=== PATIENT | female | born 1950 | race Caucasian/White ===

== ENCOUNTER → 2017-11-20 10:24 | Outpatient (CLI) | payer MEDICARE, OTHER, SELFPAY ==
--- NOTE | 2017-11-20 10:27 | BI_ITS ---
MAMMOGRAPHY - BILATERAL SCREENING 3-D SAM SYNTHESIS REASON FOR EXAM: Female, 67 years old. Bilateral Screening 3-D tomosynthesis PERTINENT HISTORY: No significant family history. TECHNIQUE: 2-D mammograms and 3-D Sam synthesis of the breast (s) were performed. CAD was performed. COMPARISON: None. FINDINGS: The breast composition is composed of scattered fibroglandular density. Scattered benign calcifications are seen. No dense spiculated masses or suspicious microcalcifications are identified. No architectural distortion is identified. There is no skin thickening or retraction. There has been no significant change since the prior study. BI/SCREENING MAMM (CAD), BILAT IMPRESSION: No mammographic signs of malignancy. Routine yearly mammograms recommended. ASSESSMENT CATEGORY: BIRADS Category 1: Negative. A letter regarding these results will be sent to the patient by the facility within 30 days. FOLLOW UP RECOMMENDATION: Yearly follow up mammogram recommended. (A) Approximately 10% of breast cancers are not detected by mammography. A normal mammogram should not delay biopsy of a clinically suspicious abnormality. Electronically Signed: Wayne Herman MD at 12:27 EDT , Service support ,
== END ==
PROVIDERS: Family Provider Student in an Organized Health Care Education/Training Program; PCP Student in an Organized Health Care Education/Training Program; Visit Provider Student in an Organized Health Care Education/Training Program
DX: Z12.31 Encounter for screening mammogram for malignant neoplasm of breast (principal)
CPT/HCPCS: 77063; 77067

== ENCOUNTER 2018-10-01 05:51 | Observation (INO) | payer MEDICARE, OTHER, SELFPAY ==
[2018-09-18 11:12] VITALS: BP 113/89; PULSE 67; RESP 16; TEMP 36.3; O2SAT 93; BMI 35.9
[2018-09-18 11:51] LABS: Absolute Lymphocyte Count 1.66 X10^3/ul (0.83-4.51); Absolute Neutrophil Count 5.7 X10^3/uL (2.0-7.7); Basophil# 0.04 X10^3/uL; Basophil% 0.5 % (0-1); Eosinophil# 0.27 X10^3/uL; Eosinophils% 3.2 % (0-5); Hematocrit 43.5 % (37-47); Hemoglobin 13.9 g/dl (12.0-15.0); Lymphocyte # 1.66 X10^3/ul (4.0); Lymphocyte % 19.6 % (19-41); Mean Corpuscular Hgb 27.7 pg (27.0-32.0); Mean Corpuscular Volume 86.8 fL (81-99); Monocyte# 0.81 X10^3/uL; Monocyte% 9.5 % (0-10); Neutrophil % 67.1 % (47-70); Platelet Count 292 K/mm3 (150-450); RBC Distribution Width CV 13.7 % (11.6-14.6); Red Blood Count 5.01 M/mm3 (4.2-5.4); White Blood Count 8.5 K/mm3 (4.4-11.0)
[2018-09-18 11:53] LABS: POSITIVE COUNT NO; POSITIVE DIFFERENTIAL NO; POSITIVE MORPHOLOGY NO
[2018-09-18 11:58] LABS: Partial Thromboplast Time 26.4 Seconds (24.1-36.2); Prothrombin Time (Protime)PT. 13.3 SECONDS (11.7-14.9)
[2018-09-18 12:23] LABS: AST(SGOT) 19 U/L (15-37); Alanine Aminotransfer ALT/SGPT 30 U/L (13-56); Albumin, Serum 3.5 g/dL (3.2-5.0); Alkaline Phosphatase 51 U/L (45-117); Anion Gap 11 (5-15); BUN 21 mg/dL (7-18); BUN/Creat Ratio 22.6 RATIO (10-20); Bilirubin, Direct 0.19 mg/dL (0.00-0.30); Calcium,Total 8.8 mg/dL (8.5-10.1); Chloride 107 mmol/L (98-107); Creatinine, Serum 0.93 mg/dL (0.55-1.02); EST Glomerular Filtration Rate 64 mL/min (>60); Est Glom Filt Rate - Afr Amer 77 mL/min (>60); Estimated Creatinine Clearance 60.51 ml/min; Globulin 3.4 g/dL (2.2-4.2); Glucose 85 mg/dL (74-106); Potassium 4.4 mmol/L (3.5-5.1); Protein, Total 6.9 g/dL (6.4-8.2); Sodium Level 144 mmol/L (136-145)
--- NOTE | 2018-09-25 12:59 | CASEMGMT ---
Addendum entered by Brianda Harris 09/25/18 13:21: Received return call from patient. Patient plans to return home with assistance from . Patient has 1st outpatient PT visit set up at [facility], has transportation assistance. Patient will be getting a walker, shower seat, and toilet riser from brother who just had a TKR. Patient has a bathroom on the 1st level of the home and is setting up a bedroom area in the dining room. There are 3 steps down to enter the house from the garage or there's 1 step up in the back of the house to enter. Informed patient that RN-CM will follow up for further discharge planning after surgery. Brianda Harris LPN Clinical Support Original Note: Attempted to contact patient regarding discharge needs after upcoming surgery. No answer on cell phone, voicemail left. Brianda Harris LPN Clinical Support
[2018-10-01] VITALS (10 sets, daily range): BP systolic 103–138; BP diastolic 57–90; PULSE 54–68; RESP 12–18; TEMP 36.1–36.9; O2SAT 93–100; BMI 35.9
[2018-10-01] MEDS: oxyCODONE HCl Cr 10 MG Tablet PO (06:32)
[2018-10-01] MEDS: Acetaminophen 500 MG Tablet 1000 MG PO ×3 (06:32→22:47)
--- NOTE | 2018-10-01 07:15 | KNEE_PTH ---
PATIENT: MARY PRICE LOC: MS3 U#:[id number] AGE/SX: 68/F ROOM: MS303 RE10/01/[address]: Dr. Scooter Mata DO : 1950 BED: 1 DIS: 10/02/2018 SPEC #: [id number] RECD: 10/01/18 13:47 STATUS: FRANCES REEmelia #: [id number] QASIM: 10/01/18 07:[address]: Scooter Mata DEPT: SURGICAL PATHOLOGY RECD BY: Blu Arambula ENTERED: 10/01/18 14:09 SP TYPE: TOTAL KNEE OTHR DR: Dr. Pete Morejon DO Tissues: Knee, NOS Procedures: Decalcification bone/plaque Surgery Specimen Level IV HEADER OPERATION: Total knee replacement, right PRE-OP DIAGNOSIS: Tricompartmental osteoarthritis TISSUE SUBMITTED: Bone and soft tissue MICROSCOPIC DIAGNOSIS Bone and soft tissue of right knee, total knee resection: Severe degenerative joint disease. Mild synovial hyperplasia. AM:karen 10/04/18 MICROSCOPIC DESCRIPTION Slides are reviewed. GROSS DESCRIPTION Received is one container designated bone and soft tissue right knee. The specimen consists of multiple fragments of sr-yellow bone measuring in aggregate 17 x 8 x 2 cm. Also in the specimen container are multiple fragments of yellow-white soft tissue measuring in aggregate 13 x 5 x 2 cm. A number of bony fragments contain articular surfaces consistent with tibial plateau and femoral condyle and displaying prominent osteophyte formation, eburnation, and bone erosion. Floor Manager sections are submitted in two cassettes as follows: 1 - soft tissue, 2 - bone after decalcification. / AM:karen 10/01/18 TC:5 [facility]: [id number], [id number]
[2018-10-01] MEDS: Cefazolin 2 GM in 0.9% Normal Saline 100 ML IV (07:33)
[2018-10-01] MEDS: Lactated Ringers 1,000 ML 125 ML IV ×3 (08:00→22:48)
--- NOTE | 2018-10-01 09:29 | PCM.OPRPT ---
Report of Operation Date of Procedure: 10/01/18 Pre-Operative Diagnosis: OA Right knee Post-Operative Diagnosis: same Surgery/Procedure Performed:: Right TKR Description of Surgical Findings:: Primary Surgeon/Physician: Scooter Mata director of collections: DANELLE Matthews director of collections: Pre-Operative Diagnosis: Osteoarthritis right knee Post-Operative Diagnosis: same Surgery/Procedure Performed: Right TKR Estimated Blood Loss: 25cc Specimen's Removed: bone Type of Anesthesia: spinal ASA Class: 2 Implants: [Vandana Triathlon size 5 PS femur, size 5 tibia, 9 mm polyethylene spacer, 32 mm patella (all components cemented) ] Indications: Patient has severe end-stage osteoarthritis diagnosed via x-rays in the knee. They have failed all forms of conservative measures including activity modification, injections, anti-inflammatories, use of assistive device. The patient has pain that affects on a daily basis and prevents him from doing things that they enjoyed. They have elected to undergo the above procedure. The risks of the procedure were discussed at length and their questions were answered. Procedure Description: The patient was greeted in the preoperative area. The [right ] knee was then marked with a surgical marker. Patient was then taken to or Suite 1. They were administered a dose of antibiotics as well as tranexamic acid. Once adequate anesthesia was obtained and airway was secured to placed in supine position on the operating room table. A well-padded tourniquet was placed on the affected extremity. Leg was then prepped and draped in the usual sterile fashion from the knee down. Ioban was used on the skin. Surgical timeout was then performed and confirmed with all present. Six-inch Esmarch was used to examine the limb and tourniquet was then inflated to 250 mmHg. A longitudinal incision was then planned and carried out in the anterior aspect of the knee. The dissection was then carried the length of the incision the extensor mechanism was identified. Standard medial parapatellar arthrotomy was then performed revealing severe eburnation of bone and periarticular osteophytes. There is complete loss of cartilage especially in the medial compartment with varus alignment. Anterior fat pad was removed for visualization purposes and the anterior medial aspect of the tibia was skeletonized for exposure to the knee. The knee was then flexed the patella was inverted. Opening reamer was then used in the femur approximately 1 cm anterior to the attachment of the PCL. The intramedullary valgus wand was then placed in the femur set at 5? of valgus. The distal femoral cutting jig was then applied to the femur with anticipated resection of approximately 8 mm. This was then made with a oscillating saw. The sizing guide was then placed referencing off the posterior condyles and also reference off the epicondylar axis. This was measured and the appropriate size 4-in-1 cutting jig was then applied to the distal femur. Anterior posterior cuts were made followed by the anterior and posterior chamfer cuts. These bony pieces and fragments were removed and placed on the back table. Posterior retractor was then utilized and the tibia was subluxed anteriorly. Intramedullary tibial alignment jig was then applied to the tibia referencing off the medial one third of the tibial tubercle the anterior tibial spine the middle aspect of the tibiotalar joint. Also reference off patient's kiana slope. The tibial cutting jig was then pinned with anticipated resection of 2 mm off of the deficient medial tibial condyle. This cut was made with the oscillating saw. Once this was complete a laminar nutritional chemist was utilized in both medial lateral meniscus were removed and a posterior capsular osteophytes were also removed. Posterior capsule release was performed in the posterior capsule as well as the geniculate arteries are treated with the aqua Royal. The tibia was incised and the appropriate sized tibial tray was then pinned. The femoral box cutting jig was then applied to the femur and the box was prepared removing a portion of the intercondylar notch. The femoral trial was then placed and the knee was trialed. Full flexion-extension were easily achieved. The knee seemed to balance quite nicely. Any remaining osteophytes were removed at this time. Once this was complete the patella was everted and the Walker patella reaming device was then utilized the patella was then placed in the appropriate jig and reamer was then used to remove approximately 9 mm of the undersurface of the patella. A soft tissue remaining was in the way was removed and patella trial was then placed listed maintain excellent tracking using the no thumbs technique. The tibial tray at this point was punched to accommodate the fins of the final implant. At this point cement was mixed on the back table. The trial components were removed and the knee was copiously irrigated. Did use a cocktail of injection for postoperative pain control. The final components were then cemented in the standard fashion and excess cement was removed with cement removal tools and patellar clamp is placed in the patella. As the cement had cured in full extension tourniquet was deflated and hemostasis was perfect with Bovie cautery as well as the aqua Manus. Needle is once again trialed with different size polyethylenes to ensure the full range of motion was achieved as well as excellent balancing ligamentously was achieved. At this point the knee was copiously irrigated. Final implant was then inserted locking mechanism was engaged and confirmed to be locked. The arthrotomy was then closed with #1 Vicryl interrupted suture. Subcutaneous tissue was closed with 0 Vicryl and surgical jack were placed in the skin. A occlusive silver impregnated dressing was then applied followed by well-padded sterile dressing secured with an Maycol wrap. The patient was taken to the PACU in stable condition. No complications known at this time. Postoperatively we will maintain standard total knee postoperative protocol. The use of the REMOTE SENSING ADVISOR was integral during this procedure. They assisted with positioning placement of the tourniquet, retracting, closure and placement of the dressing. The procedure would have been much more difficult without their expertise and assistance director of collections: Bev Greenfield Type of Anesthesia:: Spinal Anesthesiologist: Drew Vega Drains: 0 Estimated Blood Loss (mL): 25cc - Admit VTE Documentation VTE Present on Admission: No VTE Mechan Device Prophylaxis: SCD's, Knee High RED Hose VTE Pharm Prophylaxis ordered?: Yes
--- NOTE | 2018-10-01 09:38 | OP.PCM_ITS ---
Report of Operation Date of Procedure: 10/01/18 Pre-Operative Diagnosis: OA Right knee Post-Operative Diagnosis: same Surgery/Procedure Performed:: Right TKR Description of Surgical Findings:: Primary Surgeon/Physician: Scooter Mata web assistant: DANELLE Matthews web assistant: Pre-Operative Diagnosis: Osteoarthritis right knee Post-Operative Diagnosis: same Surgery/Procedure Performed: Right TKR Estimated Blood Loss: 25cc Specimen's Removed: bone Type of Anesthesia: spinal ASA Class: 2 Implants: [Vandana Triathlon size 5 PS femur, size 5 tibia, 9 mm polyethylene spacer, 32 mm patella (all components cemented) ] Indications: Patient has severe end-stage osteoarthritis diagnosed via x-rays in the knee. They have failed all forms of conservative measures including activity modification, injections, anti-inflammatories, use of assistive device. The patient has pain that affects on a daily basis and prevents him from doing things that they enjoyed. They have elected to undergo the above procedure. The risks of the procedure were discussed at length and their questions were answered. Procedure Description: The patient was greeted in the preoperative area. The [right ] knee was then marked with a surgical marker. Patient was then taken to or Suite 1. They were administered a dose of antibiotics as well as tranexamic acid. Once adequate anesthesia was obtained and airway was secured to placed in supine position on the operating room table. A well-padded tourniquet was placed on the affected extremity. Leg was then prepped and draped in the usual sterile fashion from the knee down. Ioban was used on the skin. Surgical timeout was then performed and confirmed with all present. Six-inch Esmarch was used to examine the limb and tourniquet was then inflated to 250 mmHg. A longitudinal incision was then planned and carried out in the anterior aspect of the knee. The dissection was then carried the length of the incision the extensor mechanism was identified. Standard medial parapatellar arthrotomy was then performed revealing severe eburnation of bone and periarticular osteophytes. There is complete loss of cartilage especially in the medial compartment with varus alignment. Anterior fat pad was removed for visualization purposes and the anterior medial aspect of the tibia was skeletonized for exposure to the knee. The knee was then flexed the patella was inverted. Opening reamer was then used in the femur approximately 1 cm anterior to the attachment of the PCL. The intramedullary valgus wand was then placed in the femur set at 5? of valgus. The distal femoral cutting jig was then applied to the femur with anticipated resection of approximately 8 mm. This was then made with a oscillating saw. The sizing guide was then placed referencing off the posterior condyles and also reference off the epicondylar axis. This was measured and the appropriate size 4-in-1 cutting jig was then applied to the distal femur. Anterior posterior cuts were made followed by the anterior and posterior chamfer cuts. These bony pieces and fragments were removed and placed on the back table. Posterior retractor was then utilized and the tibia was subluxed anteriorly. Intramedullary tibial alignment jig was then applied to the tibia referencing off the medial one third of the tibial tubercle the anterior tibial spine the middle aspect of the tibiotalar joint. Also reference off patient's [place] slope. The tibial cutting jig was then pinned with anticip ated resection of 2 mm off of the deficient medial tibial condyle. This cut was made with the oscillating saw. Once this was complete a laminar hollow core door frame assembler was utilized in both medial lateral meniscus were removed and a posterior capsular osteophytes were also removed. Posterior capsule release was performed in the posterior capsule as well as the geniculate arteries are treated with the aqua Royal. The tibia was incised and the appropriate sized tibial tray was then pinned. The femoral box cutting jig was then applied to the femur and the box was prepared removing a portion of the intercondylar notch. The femoral trial was then placed and the knee was trialed. Full flexion-extension were easily achieved. The knee seemed to balance quite nicely. Any remaining osteophytes were removed at this time. Once this was complete the patella was everted and the Walker patella reaming device was then utilized the patella was then placed in the appropriate jig and reamer was then used to remove approximately 9 mm of the undersurface of the patella. A soft tissue remaining was in the way was removed and patella trial was then placed listed maintain excellent tracking using the no thumbs technique. The tibial tray at this point was punched to accommodate the fins of the final implant. At this point cement was mixed on the back table. The trial components were removed and the knee was copiously irrigated. Did use a cocktail of injection for postoperative pain control. The final components were then cemented in the standard fashion and excess cement was removed with cement removal tools and patellar clamp is placed in the patella. As the cement had cured in full extension tourniquet was deflated and hemostasis was perfect with Bovie cautery as well as the aqua Manus. Needle is once again trialed with different size polyethylenes to ensure the full range of motion was achieved as well as excellent balancing ligamentously was achieved. At this point the knee was copi ously irrigated. Final implant was then inserted locking mechanism was engaged and confirmed to be locked. The arthrotomy was then closed with #1 Vicryl interrupted suture. Subcutaneous tissue was closed with 0 Vicryl and surgical jack were placed in the skin. A occlusive silver impregnated dressing was then applied followed by well-padded sterile dressing secured with an Maycol wrap. The patient was taken to the PACU in stable condition. No complications known at this time. Postoperatively we will maintain standard total knee postoperative protocol. The use of the DIRECTOR OF MARKETING ANALYTICS was integral during this procedure. They assisted with positioning placement of the tourniquet, retracting, closure and placement of the dressing. The procedure would have been much more difficult without their expertise and assistance web assistant: Bev Greenfield Type of Anesthesia:: Spinal Anesthesiologist: Drew Vega Drains: 0 Estimated Blood Loss (mL): 25cc - Admit VTE Documentation VTE Present on Admission: No VTE Mechan Device Prophylaxis: SCD's, Knee High RED Hose VTE Pharm Prophylaxis ordered?: Yes
[2018-10-01] MEDS: oxyCODONE 5 MG Tablet PO ×4 (11:56→22:45)
[2018-10-01] MEDS: Cefazolin 1 GM/50 ML BAG IV ×2 (14:36→22:48)
[2018-10-01 14:41] LABS: Hematocrit 37.3 % (37-47); Hemoglobin 11.9 g/dl (12.0-15.0); Mean Corp Hgb Conc 31.9 g/gl (32-36); Mean Corpuscular Hgb 28.4 pg (27.0-32.0); Mean Platelet Vol. 9.9 fl (6.2-12.0); Platelet Count 226 K/mm3 (150-450); RBC Distribution Width CV 13.9 % (11.6-14.6); RBC Distribution Width SD 45.6 fl (35.1-43.9); Red Blood Count 4.19 M/mm3 (4.2-5.4); Scan Indicated on CBC? Y/N NO; White Blood Count 10.2 K/mm3 (4.4-11.0)
[2018-10-01 14:52] LABS: Anion Gap 6 (5-15); BUN 16 mg/dL (7-18); BUN/Creat Ratio 17.5 RATIO (10-20); Calcium,Total 7.9 mg/dL (8.5-10.1); Chloride 109 mmol/L (98-107); Creatinine, Serum 0.92 mg/dL (0.55-1.02); EST Glomerular Filtration Rate 65 mL/min (>60); Est Glom Filt Rate - Afr Amer 78 mL/min (>60); Estimated Creatinine Clearance 61.16 ml/min; Glucose 102 mg/dL (74-106); Sodium Level 144 mmol/L (136-145)
[2018-10-01] MEDS: 0.9% NaCl Peripheral Flush Adult/Peds IV (17:13)
[2018-10-01] MEDS: Aspirin 325 MG Tablet PO (22:47)
[2018-10-01] MEDS: Senna/Docusate Sodium 1 Tablet 2 TABLET PO (22:47)
[2018-10-02 03:15] VITALS: BP 122/74; PULSE 70; RESP 16; TEMP 37.4; O2SAT 95
[2018-10-02] MEDS: oxyCODONE 5 MG Tablet PO ×2 (06:13→11:02)
[2018-10-02] MEDS: Ketorolac 15 MG/ML Vial IV ×2 (06:13→14:11)
[2018-10-02] MEDS: Acetaminophen 500 MG Tablet 1000 MG PO ×2 (06:18→14:11)
[2018-10-02 07:01] LABS: Hematocrit 36.6 % (37-47); Hemoglobin 11.3 g/dl (12.0-15.0); Mean Corp Hgb Conc 30.9 g/gl (32-36); Mean Corpuscular Hgb 28.1 pg (27.0-32.0); Mean Platelet Vol. 10.9 fl (6.2-12.0); Platelet Count 210 K/mm3 (150-450); Red Blood Count 4.02 M/mm3 (4.2-5.4); White Blood Count 11.3 K/mm3 (4.4-11.0)
[2018-10-02 07:04] LABS: Scan Indicated on CBC? Y/N NO
[2018-10-02 07:15] LABS: Anion Gap 6 (5-15); BUN 14 mg/dL (7-18); BUN/Creat Ratio 15.6 RATIO (10-20); Calcium,Total 8.1 mg/dL (8.5-10.1); Chloride 107 mmol/L (98-107); EST Glomerular Filtration Rate 67 mL/min (>60); Est Glom Filt Rate - Afr Amer 81 mL/min (>60); Estimated Creatinine Clearance 62.52 ml/min; Glucose 106 mg/dL (74-106); Potassium 4.2 mmol/L (3.5-5.1); Sodium Level 141 mmol/L (136-145)
--- NOTE | 2018-10-02 07:52 | PCM.PN.ORT ---
Subjective: Patient states pain is currently 3/10. Had worse pain this morning primarily at upper part of incision and thigh. - Physical Exam General: Alert, Oriented x3, No apparent distress Extremities: No clubbing, No cyanosis, No edema, Capillary Refill Less than 3 Seconds, No Calf Tenderness Skin: Incision - stable Musculoskeletal: Tenderness - At upper thigh. Soft and minimally tender to palpation. Neurological: Neuro grossly intact Vital Signs Temp Pulse Resp BP Pulse Ox 99.4 F H 70 16 122/74 H 95 10/02/18 03:15 10/02/18 03:15 10/02/18 03:15 10/02/18 03:15 10/02/18 03:15 Oxygen Flow Rate (L/min) 2 Oxygen Delivery Method Nasal Cannula Weight: 243 lb 9.773 oz Body Mass Index (BMI) 35.9 Intake and Output for Last 24 Hours 09/30/18 10/01/18 10/02/18 23:59 23:59 23:59 Intake Total 1500 / 1500 1021 / 1021 Output Total 500 / 500 Balance 1500 / 1500 521 / 521 Laboratory Tests Past 24 Hrs 10/01/18 10/01/18 10/02/18 14:15 14:15 05:15 WBC 10.2 11.3 H RBC 4.19 L 4.02 L Hgb 11.9 L 11.3 L Hct 37.3 36.6 L MCV 89.0 91.0 MCH 28.4 28.1 MCHC 31.9 L 30.9 L RDW 13.9 14.0 RDW Differential 45.6 H 46.0 H Plt Count 226 210 MPV 9.9 10.9 Sodium 144 Potassium 4.0 Chloride 109 H Carbon Dioxide 29.0 Anion Gap 6 BUN 16 Creatinine 0.92 Estim Creat Clear Calc 61.16 Est GFR (MDRD) Af Amer 78 Est GFR (MDRD) Non-Af 65 BUN/Creatinine Ratio 17.5 Glucose 102 Calcium 7.9 L 10/02/18 05:15 WBC RBC Hgb Hct MCV MCH MCHC RDW RDW Differential Plt Count MPV Sodium 141 Potassium 4.2 Chloride 107 Carbon Dioxide 28.0 Anion Gap 6 BUN 14 Creatinine 0.90 Estim Creat Clear Calc 62.52 Est GFR (MDRD) Af Amer 81 Est GFR (MDRD) Non-Af 67 BUN/Creatinine Ratio 15.6 Glucose 106 Calcium 8.1 L Medical Necessity - Tobacco Use Smoking Status: Never smoker Tobacco Use: Non-smoker Assessment/Plan S/p R TKR PT x 2 then home this afternoon.
--- NOTE | 2018-10-02 08:01 | DCINST_ITS ---
Discharge Diet: No Restrictions Discharge Activity: May Not Drive May shower in (days): 1 Ice area for (Minutes): 20 Weight Bearing Status: Weight bearing as tolerated Elevate: Operative Extremity Additional Activity Instructions:: Wear elastic stockings for 2 weeks after your surgery. Call your doctor if your incision/area has: Continuous Slow Oozing, Sudden Increased Bleeding, Increased Pain/ Swelling, Increased Redness, Foul Smelling Discharge Call your doctor if you observe: Fever of 101 or Higher, Coldness, Increased Pain - in extremity, Numbness or Tingling, Change in Color, Calf discomfort, Uncontrolled pain Change Dressing in (Days):: 1 - and daily as needed. Cleanse incision/area with: Soap & Water Allergies/Adverse Reactions: Allergies hydrocodone [From Vicodin] Allergy (Verified 09/18/18 10:56) Rash rofecoxib [From Vioxx] Adverse Reaction (Verified 09/18/18 10:56) Upset Stomach Medications to take at Discharge Acetaminophen [Tylenol Extra Strength] 1,000 mg PO BID 09/18/18 Metoprolol Succinate [Toprol Xl] 50 mg PO DAILY 09/18/18 Multivit with Calcium,Iron,Min [Multiple Vitamins For Women] 1 each PO DAILY 09/18/18 Acetaminophen [Tylenol] 1,000 mg PO Q8 tablet 10/02/18 Aspirin 325 mg PO BID tablet 10/02/18 Oxycodone [Oxyir] 5 - 10 mg PO Q4H PRN PRN #60 tab 10/02/18 Senna/Docusate Sodium [Senokot-S] 2 tablet PO BID tablet 10/02/18 The following prescriptions were given: Oxycodone [Oxyir] 5 - 10 mg PO Q4H PRN PRN #60 tab PRN Reason: Mod-Severe Pain (4-10/10) Primary Care Physician: Pete Morejon DO [Primary Care Provider] - Test Results: Test results from this visit will be discussed in further detail at your follow- up appointment, if applicable. Please Follow Up With: Scooter Mata DO When: as scheduled
--- NOTE | 2018-10-02 09:12 | PCA ---
therapy working with pt
--- NOTE | 2018-10-02 10:30 | CASEMGMT ---
ROCKY HERNADEZ Face to Face with patient for initial transition planning/care coordination assessment. RN MARICARMEN introduced self and role at [facility]. Patient lying in bed, alert and oriented. Patient willing to participate in assessment and is able to answer all questions appropriately. Care providers, pharmacy, and demographics verified. Patient wishes to discharge home and is setup with [facility] for outpatient therapy with providing transportation. Patient states she has no further needs or concerns at this time. CM to follow for discharge planning needs that may arise. PCP: Stefan Specialists: Lyndon pain specialist Preferred Pharmacy: [facility] Benef[facility]: Yes Living Will/HPOA: None LNOK: Living Arrangements: Patient lives with in 2 story home with bed and bath setup on first floor. Transportation: DME/HHC: Patient states that she has a shower chair, raised toilet seat, and walker at home. Disposition Plan: Patient to discharge with outpatient therapy, family support, and follow-up plans in place. Ethel DUNN, RN, CM
[2018-10-02] MEDS: Multivitamins,Ther W-Minerals Tablet 1 TABLET PO (10:56)
[2018-10-02 10:57] VITALS: PULSE 81
[2018-10-02] MEDS: Senna/Docusate Sodium 1 Tablet 2 TABLET PO (10:57)
[2018-10-02] MEDS: Metoprolol(XL)Succ 50 MG Tablet PO (10:57)
[2018-10-02] MEDS: Aspirin 325 MG Tablet PO (10:57)
[2018-10-02 11:11] VITALS: BP 115/55; PULSE 70; RESP 18; TEMP 36.5; O2SAT 95
== END 2018-10-02 15:45 | disposition home or self-care (01) ==
PROVIDERS: Anesthesiology; Admitting Provider Orthopaedic Surgery; Family Provider Student in an Organized Health Care Education/Training Program; PCP Student in an Organized Health Care Education/Training Program; Referring Provider Orthopaedic Surgery; Visit Provider Orthopaedic Surgery
PROC: (CPT 27447; principal; 2018-10-01 06:50)
DX: M17.11 Unilateral primary osteoarthritis, right knee (principal); Z79.899 Other long term (current) drug therapy; Z79.82 Long term (current) use of aspirin; I10 Essential (primary) hypertension; G25.81 Restless legs syndrome; R00.1 Bradycardia, unspecified; Z79.1 Long term (current) use of non-steroidal anti-inflammatories (NSAID); M76.51 Patellar tendinitis, right knee
CPT/HCPCS: 27447; 64447; 36415; 80048; 80076; 85025; 85027; 85610; 85730; 87081; 88305; 88311; 93005; 96361; 96365; 96366; 96375; 96376; 97110; 97116; 97161; 97166; 97530; 99218; C1776; J7120; A4216; G0378; G0379; J2405

== ENCOUNTER → 2018-11-20 11:58 | Outpatient (CLI) | payer MEDICARE, OTHER, SELFPAY ==
[2018-10-01 06:17] VITALS: BMI 35.9
--- NOTE | 2018-11-20 | LES_PTH ---
PATIENT: MARY PRICE LOC: [facility] U#:[id number] AGE/SX: 74/F ROOM: RE11/20/[address]: Dr. Erick Gallardo, PARK : 1950 BED: DIS: SPEC #: [id number] RECD: 11/20/18 11:56 STATUS: FRANCES WILMA #: [id number] QASIM: 11/20/18 00:[address]: Erick Gallardo DEPT: SURGICAL PATHOLOGY RECD BY: Deon Noguera ENTERED: 11/20/18 13:28 SP TYPE: Lesion OTHR DR: Dr. Pete Morejon, DO Tissues: Skin of face, NOS Procedures: Surgery Specimen Level IV HEADER OPERATION: Biopsy left cheek PRE-OP DIAGNOSIS: Probable fibroma TISSUE SUBMITTED: Left cheek mucosa MICROSCOPIC DIAGNOSIS Left cheek mucosa, biopsy: Squamous mucosa with subepithelial fibrosis, consistent with irritation fibroma. Hyperkeratosis and parakeratosis. SJ:karen 11/21/18 MICROSCOPIC DESCRIPTION Slides are reviewed. GROSS DESCRIPTION Received in fixative is one container labeled with the patient's name and designated left cheek. The specimen consists of a piece of sr-white mucosal tissue measuring 0.7 x 0.5 x 0.3 cm. The specimen is inked and submitted entirely in one cassette. It will be sectioned at the time of embedding. / BRITTANI:karen 11/20/18 TC:5 CPT: 29015
== END ==
PROVIDERS: Family Provider Student in an Organized Health Care Education/Training Program; PCP Student in an Organized Health Care Education/Training Program; Referring Provider Dentist Oral and Maxillofacial Surgery; Visit Provider Dentist Oral and Maxillofacial Surgery
DX: D10.39 Benign neoplasm of other parts of mouth (principal); L85.9 Epidermal thickening, unspecified
CPT/HCPCS: 88305

== ENCOUNTER 2019-03-27 06:18 | Inpatient (IN) | payer MEDICARE, OTHER, SELFPAY ==
[2018-10-01 06:17] VITALS: BMI 35.9
[2019-03-11 14:16] VITALS: BP 130/89; PULSE 57; RESP 16; TEMP 36.5; O2SAT 96; BMI 37.3
--- NOTE | 2019-03-11 14:26 | SDCEKG_ITS ---
Test Reason : Blood Pressure : / mmHG Vent. Rate : 059 BPM Atrial Rate : 059 BPM P-R Int : 172 ms QRS Dur : 080 ms QT Int : 442 ms P-R-T Axes : 042 -36 027 degrees QTc Int : 437 ms Sinus bradycardia Left axis deviation Possible Anterior infarct (cited on or before 18-SEP-2018), age undetermined Abnormal ECG Confirmed by RACHEL BEARD MD ([id number]), market editor RAUL WOODS ([id number]) on 03/18/2019 11:47:18 AM Referred By: [facility] Confirmed By:RACHEL BEARD MD
[2019-03-11 14:55] LABS: Absolute Lymphocyte Count 1.67 X10^3/uL (0.83-4.51); Absolute Neutrophil Count 4.1 X10^3/uL (2.0-7.7); Basophil# 0.09 X10^3/uL; Basophil% 1.3 % (0-1); Eosinophil# 0.38 X10^3/uL; Eosinophils% 5.4 % (0-5); Hematocrit 41.3 % (37-47); Hemoglobin 13.4 g/dL (12.0-15.0); Lymphocyte # 1.67 X10^3/ul (4.0); Lymphocyte % 23.8 % (19-41); Mean Corp Hgb Conc 32.4 g/dL (32-36); Mean Corpuscular Hgb 28.3 pg (27.0-32.0); Mean Corpuscular Volume 87.1 fL (81-99); Mean Platelet Vol. 10.5 fl (6.2-12.0); Monocyte# 0.77 X10^3/uL; NRBC Flagged by Analyzer 0 % (0-5); Neutrophil % 58.2 % (47-70); Platelet Count 315 K/mm3 (150-450); RBC Distribution Width CV 13.5 % (11.6-14.6); RBC Distribution Width SD 43.6 fl (35.1-43.9); Red Blood Count 4.74 M/mm3 (4.2-5.4)
[2019-03-11 14:58] LABS: Prothrombin Time (Protime)PT. 13.4 SECONDS (11.7-14.9)
[2019-03-11 14:59] LABS: Partial Thromboplast Time 27.5 Seconds (24.1-36.2)
[2019-03-11 15:04] LABS: AST(SGOT) 18 U/L (15-37); Alanine Aminotransfer ALT/SGPT 20 U/L (13-56); Albumin, Serum 3.3 g/dL (3.2-5.0); Alkaline Phosphatase 58 U/L (45-117); Anion Gap 4 (5-15); BUN 17 mg/dL (7-18); BUN/Creat Ratio 17.8 RATIO (10-20); Calcium,Total 8.5 mg/dL (8.5-10.1); Chloride 110 mmol/L (98-107); Creatinine, Serum 0.95 mg/dL (0.55-1.02); EST Glomerular Filtration Rate 62 mL/min (>60); Est Glom Filt Rate - Afr Amer 75 mL/min (>60); Estimated Creatinine Clearance 59.23 ml/min; Globulin 3.6 g/dL (2.2-4.2); Glucose 98 mg/dL (74-106); Potassium 4.2 mmol/L (3.5-5.1); Protein, Total 6.9 g/dL (6.4-8.2); Sodium Level 142 mmol/L (136-145)
--- NOTE | 2019-03-11 22:31 | HP.PCM_ITS ---
History and Physical Patient Name: Pavithra Reyes : 1950 From: ALICIA EDWARDS PA-C DATE OF SURGERY: 03/27/2019 SCHEDULED PROCEDURE: left total hip arthroplasty HISTORY OF PRESENT ILLNESS: Preoperative history and physical exam was performed on March 11, 2019. This is a 68-year-old female who has been having ongoing pain in the left hip for over one year. Patient has increased pain going up and down stairs, walking, and prolonged sitting. She does report startup pain. Her pain has been constant, aching, stabbing, sore. Pain is over the lateral hip. Pain does occasionally wake her at night. Patient has difficult time with activities of daily living including bathing/showering, housework, and shopping. Patient has tried rest, heat, corticosteroid injection with minimal relief. She has been through formal physical therapy and home exercises. She has tried oral medications consisting of Mobic and Tylenol. She denies previous surgeries. She has had injections in the left SI joint as well as an ablation in November 2018. Patient has medical history pertinent for hypertension. She denies any recent chest pain, shortness of breath, fevers chills, recent infections. After failing conservative measures and discussing treatment options with Dr. Rd Mederos patient does wish to proceed with a left total hip arthroplasty. We have obtain surgical clearance from the primary care physician. REVIEW OF SYSTEMS: ROS: Const: Denies anorexia, change in appetite, fever, hard of hearing, vision problems and weight change. CV: Denies chest pain, heart murmur, irregular heartbeat and peripheral vascular disease. Resp: Denies asthma, cough, pneumonia, sleep apnea, SOB, tuberculosis and wheezing. GI: Reports difficulty swallowing, but denies constipation, diarrhea, heartburn, nausea, bloody stools and vomiting. : Genital: reports irregular menstrual periods. Urinary: denies incontinence. Musculo: Reports weakness, but denies leg swelling, limp and trouble walking. Skin: Denies Raynaud's, history of shingles and tattoo. Neuro: Reports difficulty with balance, numbness/tingling and tremor but denies ambulatory dysfunction and dizziness. Psych: Denies anxiety, depression, insomnia, mental illness and stress. Tim/Lymph: Denies anemia, bleeding/bruising tendency and past transfusion. Reviewed, no changes. PAST MEDICAL HISTORY: Advance Care Plan: No Advance Directives Effective Date: 10/27/2016 PMH: Medical Problems: High Blood Pressure Accidents: Fracture - (1970) skull Surgical Hx: Tubal Ligation - (1982) [facility] Eye - (1988) [facility] T[facility]KR - (10/04/2010) [facility] @ [facility] LT Eye SX - (06/2014) RT TKR - (10/01/2018) [email or web address] Si Joint Ablation - (11/2018) Anesthesia Complications: Nausea Assistive Devices: Glasses, Contacts Reviewed and updated. 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 Personal Habits: Cigarette Use: Never.Alcohol: Occasionally.Drug Use: Denies Use.Enjoy Exercising: Never Exercises. Reviewed, no changes. VITALS: Ht: 69 Wt: 249lb Wt [id number] BMI: 36.8 BP: 144/88 Pulse: 60 Resp: 16 T: 97.8 T: 36.6C ALLERGIES: Vicodin Vioxx MEDICATIONS: Metoprolol 50 mg 1po qday, Tylenol 325 mg 2 tabs PO bid, Aspirin 81 mg 1 by mouth twice a day, Mobic 7.5 mg 1 by mouth twice a day as needed PRE-OP EXAM: General appearance:NORMAL Other: Eyes: Conjunctivae and lids: NORMAL Pupils: ERR Ears, Nose, Mouth, and Throat: NORMAL Other: Inspection of lips, teeth and gums: NORMAL Other: Neck: Examination of neck: no masses noted. Respiratory: Assessment of respiratory effort: NORMAL Other: Auscultation of lungs: clear to auscultation no wheezes, rhonchi or rales. Cardiovascular: Auscultation of heart: regular rate and rhythm, no murmurs, gallops or rubs. Gastrointestinal: Exam of abdomen: soft, nontender, nondistended bowel sounds present. PHYSICAL EXAMINATION: Patient walks with antalgic gait. She has tenderness to palpation over the left lateral hip at the greater trochanter. She has increased pain with internal and external rotation. Positive crepitus with range of motion. 4/5 on the left hip. Range of motion is limited secondary to pain. Sensation intact to light touch. Neurovascularly intact. IMAGING STUDIES: Previous x-rays of the left hip show joint space narrowing with subchondral sclerosis, osteophyte formation consistent with severe osteoarthritis with renetta dence of subchondral cyst formation and collapse of the cysts in the femoral head. IMPRESSION: 1. Severe left hip osteoarthritis 2. Hypertension PLAN: Dr. Rd Mederos did discuss and review with the patient all treatment options including surgical versus nonsurgical options. Patient does wish to proceed with the above-stated procedure. Potential risks, benefits, and complications of the procedure were discussed in detail including but not limited to , infection, nerve and blood vessel damage, persistent pain, numbness, tingling, paresthesias, blood clot, pulmonary embolism, and requirement for possible further surgery. The patient expressed full understanding and has no further questions for the doctor. Patient does agree to proceed with the above-stated procedure and has signed the surgery consent form. This dictation was created using voice recognition software. Phonetic and/or grammatical errors may exist. ___ I have re-examined the patient. There are no clinical changes since date of exam. ___ See progress notes for changes. ___ Dictated on admission Date: Time: Signature:
[2019-03-27] VITALS (10 sets, daily range): BP systolic 111–153; BP diastolic 65–96; PULSE 60–78; RESP 16–18; TEMP 36.1–37; O2SAT 93–100; BMI 37.0; BMI 37.1
[2019-03-27 06:46] LABS: Bedside Glucose 120 mg/dL (70-110)
[2019-03-27] MEDS: Magnesium Sulfate 4gm/100mL 4 GM/100 ML IV.SOLN. IV (07:00)
[2019-03-27] MEDS: Lactated Ringers 1,000 ML 100 ML IV (07:00)
[2019-03-27] MEDS: Acetaminophen 500 MG Tablet 1000 MG PO ×3 (07:04→21:14)
[2019-03-27] MEDS: Gabapentin 600 MG Tablet PO (07:04)
[2019-03-27] MEDS: Celecoxib 200 MG Capsule 400 MG PO (07:04)
[2019-03-27] MEDS: Scopolamine 1mg/72hr Patch 1 PATCH TRANSDERM. (07:04)
[2019-03-27] MEDS: Cefazolin 2 GM in 0.9% Normal Saline 100 ML IV (08:05)
--- NOTE | 2019-03-27 09:30 | RAD_ITS ---
STUDY: X-RAY - PELVIS AND LEFT HIP REASON FOR EXAM: Female, 68 years old. Left anterior hip replacement. TECHNIQUE: Intraoperative views of the pelvis and hip. COMPARISON: None. FINDINGS: Intraoperative imaging provided for anterior left hip replacement. RAD/Hip 1 view with Pelvis IMPRESSION: Intraoperative imaging provided for anterior left hip replacement. Electronically Signed: Kannan Monge, at 14:10 EDT , Service support ,
[2019-03-27] MEDS: Lactated Ringers 1,000 ML 999 ML IV (09:45)
--- NOTE | 2019-03-27 10:20 | PCM.OPRPT ---
Report of Operation Date of Procedure: 03/27/19 Pre-Operative Diagnosis: Left hip primary osteoarthritis Post-Operative Diagnosis: Left hip primary osteoarthritis Surgery/Procedure Performed:: Left direct anterior total hip replacement Description of Surgical Findings:: Stable hip with equal leg lengths field marketing associate: Jennifer Garcia Type of Anesthesia:: Spinal Anesthesiologist: Drew Vega Special Medications: 2 g Ancef, 2 g TXA, 10 mg Decadron, joint cocktail (5 mg Duramorph, 30 mL of 0.5% Ropivicaine, 1000 units of epinephrine, 30 mg of Toradol) Specimen's removed: Bony cuts Estimated Blood Loss (mL): 250 Fluids Replaced: 1500 ml crystalloid Description of Procedure: Components used: 1. Accolade 2 Vandana femoral stem size 6 132? 2. Loranger trident 2 acetabular shell size 54 mm 3. Loranger X3 polyethylene E 4. Loranger Biolox delta 36mm, +2.5mm femoral head Brief history operative indications: 68 yo F who failed conservative measures for their hip osteoarthritis. X-rays were consistent with osteoarthritis including joint space narrowing, osteophyte formation and subchondral cysts. Total hip replacement was discussed with the patient with risks and benefits including but not limited to blood loss, DVTs, PEs, neurovascular damage, dislocation, general risks of anesthesia including loss of life. Patient demonstrated an understanding medical clearance is obtained the patient was consented for surgery. Procedure: On the date of procedure the patient's L hip was marked in the preoperative area. Patient was then taken back to the operating room where anesthesia assumed control of the C-spine and airway and administered anesthetic. Patient was transferred to the operating table and placed in the supine position. The hips were placed at the break of the bed and a sacral bump was placed. The L lower extremity was then prepped out in a sterile fashion using chlorhexidine while the surgeon scrubbed. The PA was vital in the positioning of the patient. Upon reentering the room the L lower extremity was draped in the standard orthopedic fashion and the incision was marked. A timeout was called and everyone agreed upon the side, the site, the procedure be performed, antibody given, and patient's identity. At this time incision was made through skin, subcutaneous tissue, and fat down to fascia. The fascia was then incised and the TFL was retracted laterally. A retractor was placed on the lateral border of the femoral neck. Attention was directed to the inferior portion of the approach and all crossing vessels were identified and appropriately coagulated. A retractor was then placed on the medial portion of the femoral neck. The anterior capsule was then cleared of all soft tissue and then H shaped capsulotomy was made. The retractors were then placed inside the capsule. The femoral neck was identified and a cleanup cut was made. At this time a power corkscrew was used to remove the femoral head. Attention was then turned toward the acetabulum where the soft tissues were appropriately retracted and the acetabulum was sequentially reamed to 54 mm. A 54 mm cup was then selected and impacted into place. Acetabular liner was impacted into place and locking mechanism was verified. The position of the acetabular cup was then verified under live fluoroscopy. Attention was then turned to the femur. Soft tissue releases on the medial and lateral femoral neck were appropriately done, the leg was externally rotated and lateralized. A Montoya retractor was placed medially and proximally to the greater trochanter this allowed appropriate visualization and exposure of the femoral canal. Rongeour was then used to remove excess lateral bone. A canal finder and entry broach were used to open the proximal canal. Once we verified we were down the femoral canal we subsequently broached up to a size 6 femur. The appropriate neck was placed in the previously selected head was trialed with a +2.5 mm neck. Traction was pulled and the hip was reduced with internal rotation. Once it was appropriately reduced and stability was checked. There was minimal shuck, equal leg lengths and appropriate stability with hyperextension and external rotation as well as with 90? flexion and internal rotation. Fluoroscopy was then also used to verify the position of the components and leg lengths using the contralateral side for comparison. The trial components were then dislocated the proximal femur was again exposed and the components were removed from the wound. The final components were verified and opened. The wound was copiously irrigated out with normal saline. The acetabulum was checked for any residual debris. The final components were placed and impacted. Traction and internal rotation were again used to reduce the hip. After adequate reduction the hip remained stable with appropriate leg lengths. The final components were once again checked with live fluoroscopy and were found to be satisfactory. The wound was then copiously irrigated with normal saline once more, and hemostasis was obtained. Closure was then done using #1 Vicryl runner to close the fascia. A 2-0 vicryl interuppted sutures were used to close the subcutaneous skin. A 3-0 Monocryl and Steri-Strips were used for final skin closure. A Silverlon dressing was placed. Patient was awakened by anesthesia and transferred to the [facility]. Patient was then transferred to the PACU for recovery. Postoperative plan: Patient will get 24 hours postop antibiotics. Patient will get in-house physical therapy and will be weight-bear as tolerated. Patient will follow up in office in 2 weeks for a wound check and x-rays. Grafts/Implants Used: Vandana - Complications No intraoperative complications - Admit VTE Documentation VTE Present on Admission: No VTE Mechan Device Prophylaxis: SCD's, Thigh High RED Hose VTE Pharm Prophylaxis ordered?: Yes
--- NOTE | 2019-03-27 10:47 | RAD_ITS ---
STUDY: X-RAY - PELVIS AND LEFT HIP REASON FOR EXAM: Female, 68 years old. Left hip replacement. TECHNIQUE: 2 views of the pelvis and hip. COMPARISON: None. FINDINGS: The patient is status post left hip replacement. There is good alignment. Postoperative soft tissue changes. RAD/Hip Min 2 Views (Portable) IMPRESSION: Status post left hip replacement. There is good alignment. Postoperative soft tissue changes. Electronically Signed: Kannan Monge, at 15:38 EDT , Service support ,
[2019-03-27] MEDS: Lactated Ringers 1,000 ML 125 ML IV ×2 (11:56→21:12)
[2019-03-27] MEDS: Ensure Surgery 237 ML LIQUID PO ×2 (12:38→16:10)
[2019-03-27] MEDS: Cefazolin 1 GM/50 ML BAG IV (16:08)
[2019-03-27] MEDS: Aspirin 81 MG TAB.CHEW PO (16:09)
[2019-03-27] MEDS: Senna/Docusate Sodium 1 Tablet 2 TABLET PO (21:15)
[2019-03-27] MEDS: Ketorolac 15 MG/ML Vial IV (21:48)
[2019-03-28] MEDS: Cefazolin 1 GM/50 ML BAG IV (01:02)
[2019-03-28 03:15] VITALS: BP 140/79; PULSE 70; RESP 18; TEMP 36.6; O2SAT 97
[2019-03-28] MEDS: Ketorolac 15 MG/ML Vial IV (05:46)
[2019-03-28] MEDS: Acetaminophen 500 MG Tablet 1000 MG PO (05:46)
[2019-03-28 06:28] LABS: Hematocrit 36.5 % (37-47); Hemoglobin 11.5 g/dL (12.0-15.0); Mean Corp Hgb Conc 31.5 g/dL (32-36); Mean Corpuscular Hgb 28.5 pg (27.0-32.0); Mean Corpuscular Volume 90.6 fL (81-99); Mean Platelet Vol. 10.3 fl (6.2-12.0); Platelet Count 237 K/mm3 (150-450); RBC Distribution Width CV 13.2 % (11.6-14.6); RBC Distribution Width SD 43.4 fl (35.1-43.9); Red Blood Count 4.03 M/mm3 (4.2-5.4); White Blood Count 9.6 K/mm3 (4.4-11.0)
[2019-03-28 06:39] LABS: Anion Gap 4 (5-15); BUN 17 mg/dL (7-18); BUN/Creat Ratio 21.1 RATIO (10-20); Chloride 108 mmol/L (98-107); Creatinine, Serum 0.81 mg/dL (0.55-1.02); EST Glomerular Filtration Rate 75 mL/min (>60); Est Glom Filt Rate - Afr Amer 91 mL/min (>60); Estimated Creatinine Clearance 69.47 ml/min; Glucose 96 mg/dL (74-106); Potassium 4.3 mmol/L (3.5-5.1); Sodium Level 143 mmol/L (136-145)
--- NOTE | 2019-03-28 08:20 | PCM.PN.ORT ---
Subjective: The patient was sitting in bed upon examination. Patient denies any chest pain, shortness of breath, dizziness, lightheadedness, nausea or vomiting, or calf pain. Pain is controlled on medications. No adverse overnight events. Overall patient is doing well with regards to her left hip pain. Plan will be for possible discharge home today. Objective: Vital signs stable and afebrile. Patient is able to plantarflex and dorsiflex actively. Sensation is intact to light touch to saphenous, sural, superficial and deep peroneal, and tibial distribution. Dressing is clean dry and intact. Negative Homans bilaterally, negative signs and symptoms of DVT. - Physical Exam General: Alert, Oriented x3, Cooperative, No apparent distress Vital Signs Temp Pulse Resp BP Pulse Ox 97.9 F 70 18 140/79 H 97 03/28/19 03:15 03/28/19 03:15 03/28/19 03:15 03/28/19 03:15 03/28/19 03:15 Oxygen Flow Rate (L/min) 1.5 Oxygen Delivery Method Nasal Cannula Weight: 114 kg Body Mass Index (BMI) 37.0 Intake and Output for Last 24 Hours 03/26/19 03/27/19 03/28/19 23:59 23:59 23:59 Intake Total 4344.58 / 4644.58 750 / 750 Balance 4344.58 / 4644.58 750 / 750 Laboratory Tests Past 24 Hrs 03/28/19 03/28/19 06:00 06:00 WBC 9.6 RBC 4.03 L Hgb 11.5 L Hct 36.5 L MCV 90.6 MCH 28.5 MCHC 31.5 L RDW Std Deviation 43.4 RDW Coeff of Miri 13.2 Plt Count 237 MPV 10.3 Sodium 143 Potassium 4.3 Chloride 108 H Carbon Dioxide 31.0 Anion Gap 4 L BUN 17 Creatinine 0.81 Estim Creat Clear Calc 69.47 Est GFR (MDRD) Af Amer 91 Est GFR (MDRD) Non-Af 75 BUN/Creatinine Ratio 21.1 H Glucose 96 Calcium 8.0 L Medical Necessity - Tobacco Use Smoking Status: Never smoker Tobacco Use: Non-smoker Assessment/Plan 1. S/P left direct anterior total hip arthroplasty POD #1 2. Continue Pain Medications: Tylenol and OxyIR 3. DVT Prophylaxis: Aspirin 81 mg twice daily for 4 weeks postoperatively 4. PT/OT: Weightbearing as tolerated 5. H & H: 11.5/36.5, asymptomatic 6. Encouraged Incentive Spirometry 7. Disposition: Plan will be for possible discharge home today if pain is well controlled and patient tolerates physical therapy. Prescriptions will be attached to chart. Patient will follow-up per postop instructions. Patient does have outpatient physical therapy established.
--- NOTE | 2019-03-28 08:32 | PCM.DC.THR ---
Discharge Diet: No Restrictions Discharge Activity: May Not Drive - while taking narcotic pain medications. May shower in (days): 1 - Turn dressing away from water Weight Bearing Status: Weight bearing as tolerated Elevate: Operative Extremity Additional Activity Instructions:: Wear elastic stockings for 2 weeks. DO NOT use alcohol with narcotic pain medication. DO NOT make important decisions while taking narcotic medication. If you have problems with taking your medication (rash, itching, nausea, etc.) call the office at once. Call your doctor if your incision/area has: Increased Pain/ Swelling, Increased Redness, Foul Smelling Discharge Call your doctor if you observe: Fever of 101 or Higher Remove Dressing in (days):: 3 Additional Instructions: Follow postop instructions Once dressing has been removed, please place washcloth or 4 x 4 and skinfold to protect incision until healed Allergies/Adverse Reactions: Allergies hydrocodone [From Vicodin] Allergy (Verified 03/11/19 14:04) Rash rofecoxib [From Vioxx] Adverse Reaction (Verified 03/11/19 14:04) Upset Stomach Medications to take at Discharge Metoprolol Succinate [Toprol Xl] 50 mg PO DAILY 09/18/18 Meloxicam [Mobic] 7.5 mg PO BID 03/11/19 Acetaminophen [Tylenol] 1,000 mg PO Q8 14 Days tablet 03/28/19 Aspirin [Aspirin, Baby] 81 mg PO BIDCM 30 Days tab.chew 03/28/19 Famotidine [Pepcid] 20 mg PO DAILY #30 tab 03/28/19 Oxycodone [Oxyir] 5 mg PO Q4H PRN PRN 7 Days #42 tablet 03/28/19 Senna/Docusate Sodium [Senokot-S] 2 tab PO BID #20 tab 03/28/19 The following prescriptions were given: Oxycodone [Oxyir] 5 mg PO Q4H PRN PRN 7 Days #42 tablet PRN Reason: Mod-Severe Pain (-05/02) Transmission Status: Sent to [facility] Famotidine [Pepcid] 20 mg PO DAILY #30 tab Transmission Status: Pending to [facility] Senna/Docusate Sodium [Senokot-S] 2 tab PO BID #20 tab Transmission Status: Pending to [facility] Primary Care Physician: Pete Morejon DO [Primary Care Provider] - Test Results: Test results from this visit will be discussed in further detail at your follow-up appointment, if applicable. Please Follow Up With: Jon Aguilar Physical Therapy When: 04/01/19 @10:30 am with Amanda Please Follow Up With: Magdiel Berrios PA-C When: 04/10/19 @ 10:30 am
[2019-03-28] MEDS: Ensure Surgery 237 ML LIQUID PO (08:34)
[2019-03-28] MEDS: Meloxicam 7.5 MG Tablet PO (08:34)
[2019-03-28] MEDS: Aspirin 81 MG TAB.CHEW PO (08:35)
[2019-03-28 08:38] VITALS: BP 128/56; PULSE 71; RESP 18; TEMP 36.5; O2SAT 95
--- NOTE | 2019-03-28 10:30 | CASEMGMT ---
ROCKY HERNADEZ Face to Face with patient for initial transition planning/care coordination assessment. RN MARICARMEN introduced self and role at [facility]. Patient sitting in chair, alert and oriented. Patient willing to participate in assessment and is able to answer all questions appropriately. Care providers, pharmacy, and demographics verified. Patient wishes to discharge home and is setup with [facility] for outpatient therapy. Patient states she has no further needs or concerns at this time. CM to follow for discharge planning needs that may arise. PCP: Stefan Specialists: marina Mederos; Jordan Haney Preferred Pharmacy: [facility] Insurance: [facility] Prescription Benefit: yes Living Will/HPOA: no, declined additional information LNOK: Living Arrangements: patient lives in 2 story home with bed and bath setup on main level of home. 3 steps to enter the home with railing Transportation: DME/HHC: Patient has tub bench, raised toilet, cane, walker at home. Patient setup with [facility] for outpatient therapy. Disposition Plan: Patient to discharge home with outpatient therapy, family support, and follow-up plans in place. Ethel DUNN, RN, CM
[2019-03-28 10:39] VITALS: BP 128/56; PULSE 71
[2019-03-28] MEDS: Metoprolol(XL)Succ 50 MG Tablet PO (10:39)
[2019-03-28] MEDS: Senna/Docusate Sodium 1 Tablet 2 TABLET PO (10:39)
[2019-03-28] MEDS: Famotidine 20 MG Tablet PO (10:40)
[2019-03-28 13:09] VITALS: BP 140/49; PULSE 78; RESP 18; TEMP 36.7; O2SAT 96
== END 2019-03-28 13:20 | disposition home or self-care (01) | DRG 470 ==
LOC: ACINP 06:19 → MS3 07:19
PROVIDERS: Anesthesiology; Admitting Provider Specialist; Family Provider Student in an Organized Health Care Education/Training Program; PCP Student in an Organized Health Care Education/Training Program; Referring Provider Specialist; Visit Provider Specialist
PROC: 0SRB04A Replacement of Left Hip Joint with Ceramic on Polyethylene Synthetic Substitute, Uncemented, Open Approach (ICD-10-PCS; CPT 27284; principal; 2019-03-27 07:50)
DX: M16.12 Unilateral primary osteoarthritis, left hip (principal); I10 Essential (primary) hypertension
CPT/HCPCS: 36415; 73501; 73502; 76000; 80048; 80076; 82962; 85025; 85027; 85610; 85730; 87081; 93005; 97110; 97162; 97166; 97530; 97535; C1776; J7120

== ENCOUNTER 2020-09-21 09:40 | Outpatient (RCR) | payer MEDICARE, OTHER, SELFPAY ==
[2019-03-27 11:45] VITALS: BMI 37.0
== END 2020-09-21 23:59 ==
LOC: IMMUN 09:40
PROVIDERS: PCP Student in an Organized Health Care Education/Training Program; Visit Provider Family Medicine
DX: Z23 Encounter for immunization (principal)
CPT/HCPCS: 0011A; 0012A

== ENCOUNTER 2024-05-07 14:25 | Emergency (ER) | payer MEDICARE, OTHER, SELFPAY ==
[2024-05-07 14:26] VITALS: BP 134/79; PULSE 59; RESP 18; TEMP 36.1; O2SAT 96; BMI 37.5
[2024-05-07 15:10] VITALS: O2SAT 93
--- NOTE | 2024-05-07 15:48 | EKG12_ITS ---
Test Reason : SOB/CP Blood Pressure : / mmHG Vent. Rate : 054 BPM Atrial Rate : 054 BPM P-R Int : 194 ms QRS Dur : 076 ms QT Int : 454 ms P-R-T Axes : 041 -46 017 degrees QTc Int : 430 ms Sinus bradycardia Left axis deviation Cannot rule out Inferior infarct , age undetermined Abnormal ECG Confirmed by Scooter Cespedes ([id number]), editor school photograph RAUL WOODS ([id number]) on 05/08/2024 9:32:18 AM Referred By: Confirmed By:Scooter Cespedes
--- NOTE | 2024-05-07 15:49 | EDS_ITS ---
HPI History of Present Illness Chief Complaint: Shortness of Breath Narrative Narrative: 73-year-old female presents with her because of heart palpitations and shortness of breath that she experienced this morning. She states she woke up this morning, and felt mildly short of breath, no recent fevers or chills, no cough. She states by the time she got downstairs she was very winded short of breath. She also felt like she might be having her heart racing. She used a blood pressure cuff and while her blood pressure was okay, her pulse ranged anywhere from normal to as high as the 120s in bpm. She states it would come back down to normal. She went to urgent care[facility] and they told her that her heart sounded normal. She then went to her primary care provider and had an EKG performed and although there were changes, they sent her to the ED for further evaluation. There was concern for pulmonary embolism because she had a recent drive home from [place], 10 hours, although she and her state that every few hours they would get out of the car, and walk around, get gasoline or use the restroom, or switch drivers. She denies any leg swelling. She is on metoprolol for hypertension. [facility]SH [facility] Home Medications ?Medication ?Instructions ?Recorded ?Last Taken ?Type metoprolol succinate 50 mg 50 mg PO DAILY bp 09/18/18 03/27/19 History tablet,extended release 24 hr (Toprol XL) albuterol sulfate 90 mcg/actuation 1 - 2 puff inhalation Q4H PRN PRN 05/07/24 Unknown Rx aerosol inhaler (Ventolin HFA) Wheezing #1 ea aspirin 81 mg tablet,delayed 81 mg PO DAILY 05/07/24 Unknown History release (Adult Aspirin Regimen) doxycycline hyclate 100 mg capsule 100 mg PO BID #14 caps 05/07/24 Unknown Rx Allergy/AdvReac Type Severity Reaction Status Date / Time hydrocodone (From Vicodin) Allergy Rash Verified 05/07/24 14:26 rofecoxib (From Vioxx) AdvReac Upset Verified 05/07/24 14:26 Stomach Social History Smoking Status: Never smoker ROS ROS ED ROS Narrative Constitutional: No fever, no chills. HEENT: No sore throat. No neck pain. No loss of vision. No rhinorrhea. Cardiovascular: No chest pain. Positive heart racing/palpitations. No pedal edema. Respiratory: No cough, positive dyspnea on exertion/shortness of breath. Abdominal: No abdominal pain. No nausea. No vomiting. Genitourinary: No dysuria. No hematuria. Musculoskeletal: No myalgias. No arthralgias. Neurologic: No headaches. No dizziness. No lightheadedness. Skin: No rash. No change in color. Psychiatric: No depression. No anxiety. EXAM Physical Exam Narrative Exam Narrative: Afebrile. Vital signs noted. HEENT: Normocephalic. Atraumatic. PERRL, EOMI. Neck soft and supple. No point tenderness or step off. Cardiovascular: Regular rate and rhythm with intermittent bradycardia. No murmurs, rubs, or gallops appreciated. Respiratory: No tachypnea. Lungs clear to auscultation bilaterally. Gastrointestinal: Abdomen soft, nontender, with normoactive bowel sounds. No rebound or guarding. Neurological: Awake. Alert. Nonfocal, nonlateralizing. Skin: No rash. Normal color. No pallor. Musculoskeletal: No pedal edema. Full range of motion extremities. Const Vital Signs: 05/07/24 14:26 05/07/24 15:10 05/07/24 16:03 Temperature 96.9 F L Temperature Source Temporal Pulse Rate 59 L Respiratory Rate 18 Respiratory Effort Short of Breath Blood Pressure 134/79 H Blood Pressure Mean 97 Pulse Ox 96 Oxygen Delivery Method Room Air Room Air Room Air 05/07/24 16:26 Temperature Temperature Source Pulse Rate 60 Respiratory Rate 18 Respiratory Effort Blood Pressure 139/70 H Blood Pressure Mean 93 Pulse Ox 96 Oxygen Delivery Method Room Air MDM MDM MDM Narrative Medical decision making narrative: Differential diagnosis includes but not limited to atrial fibrillation versus pulmonary embolism versus ACS. History and physical does not support ischemic pain and she is having more palpitations, not really having chest pain. I doubt CHF or COPD because she does not have a history of this. I do feel that she could be ruled out with a single troponin, and I will look for electrolyte imbalance as a cause of her palpitations and reported high heart rate. She is now bradycardic which I think is secondary to her metoprolol use. D-dimer will be obtained to help rule out pulmonary embolism. EKG was obtained and interpreted by myself independently as sinus bradycardia at 54 bpm without ectopy or acute ST changes. No STEMI. I reviewed her laboratory work and she has normal white count of 7.2, hemoglobin 14.1 with hematocrit 44.4, platelet count normal at 295. Review of her basic metabolic panel shows chloride slightly elevated at 111 which I think is nonspecific, normal BUN of 14 and creatinine 0.87. High-sensitivity troponin is 42 and normal, and she has had a hours worth of shortness of breath since this morning. I do not feel she needs serial enzymes. I discussed this with the patient and she agrees and is motivated for discharge. Her age-related D-dimer is elevated at 0.61, below the cutoff of 0.73 for her age. I have low suspicion for pulmonary embolism. Her pulse ox is 96% on room air without evidence of hypoxia. I do not feel CTA is indicated. Chest x-ray 1 view interpreted by myself shows a left lower lobe infiltrate. I reviewed the radiology report which confirms my independent interpretation and comments on interstitial infiltrate. At this point in time, she will be treated as a pneumonia. I do not feel she requires admission. Through shared decision making she would like to be discharged home. I wrote her prescription for doxycycline and gave her first dose here, and I also wrote her prescription for an albuterol inhaler. She will follow-up with her primary care provider. Return instructions to the emergency department were reviewed. Disposition is discharged home in stable condition. History & Record Review Discussion w/independent historian: Patient and Family (Spouse) Lab Data Attestation: I reviewed the patient's lab results. Labs: Laboratory Results - last 24 hr 05/07/24 15:10 WBC 7.2 RBC 5.16 Hgb 14.1 Hct 44.4 MCV 86.0 MCH 27.3 MCHC 31.8 L RDW Std Deviation 41.1 RDW Coeff of Miri 13.3 Plt Count 295 MPV 11.4 Immature Gran % (Auto) 0.400 Neut % (Auto) 63.6 Lymph % (Auto) 20.4 Dyer % (Auto) 10.8 H Eos % (Auto) 4.0 Baso % (Auto) 0.8 Absolute Neuts (auto) 4.6 Absolute Lymphs (auto) 1.48 Nucleated RBC % 0 D-Dimer Quant (PE/DVT) 0.61 H* Sodium 142 Potassium 4.1 Chloride 111 H Carbon Dioxide 27.0 Anion Gap 4 L BUN 14 Creatinine 0.87 Estim Creat Clear Calc 78.01 Est GFR (MDRD) Af Amer 82 Est GFR (MDRD) Non-Af 68 BUN/Creatinine Ratio 16.1 Glucose 86 Calcium 9.3 Troponin I High Sens 42 Radiography Diagnostic Testing: Clinical Impression(s) from Imaging Studies Chest X-Ray 05/07/24 15:50 IMPRESSION: Left lower lobe interstitial infiltrate. Electronically Signed: Zan Arias MD at 16:24 EDT Reading Location ID and State: [address] [place] [address] Tel , Service support , Discharge Plan Triage Chief Complaint: Shortness of Breath ED Provider: Cameron Bermudez Dx/Rx/DC Orders Clinical Impression: Pneumonia, SOB (shortness of breath), Palpitations Instructions: ED Dyspnea, ED Palpitations, ED Pneumonia (Adult) Prescriptions: New doxycycline hyclate 100 mg capsule 100 mg PO BID Qty: 14 0RF albuterol sulfate [Ventolin HFA] 90 mcg/actuation HFA aerosol inhaler 1 - 2 puff inhalation Q4H PRN PRN (Reason: Wheezing) Qty: 1 0RF No Action metoprolol succinate [Toprol XL] 50 MG tablet extended release 24 hr 50 mg PO DAILY aspirin [Adult Aspirin Regimen] 81 mg tablet,delayed release (DR/EC) 81 mg PO DAILY Primary Care Provider: Pete Morejon Referrals: Pete Morejon, [Primary Care Provider] - 3-5 Days if not improving Activity Restrictions/Additional Instructions: Return with increased difficulty breathing, new or worsening symptoms. Print Language: Faroese Disposition Disposition: Home, Self Care
--- NOTE | 2024-05-07 15:50 | RAD_ITS ---
STUDY: X-RAY CHEST REASON FOR EXAM: Female, 73 years old. chest pain TECHNIQUE: Single frontal view of the chest. COMPARISON: February 22, 2017 FINDINGS: Left lower lobe interstitial infiltrate. There is no demonstrated pleural abnormality. Normal size heart. Normal mediastinum and roshni. Normal visualized pulmonary arteries. Normal visualized aortic arch and descending thoracic aorta. Normal visualized thoracic spine. Normal visualized ribs, clavicles, and shoulders. There is no demonstrated abnormality of the visualized soft tissue structures of the upper abdomen. RAD/Chest 1 View (Portable) IMPRESSION: Left lower lobe interstitial infiltrate. Electronically Signed: Zan Arias MD at 16:24 EDT ,
[2024-05-07 16:11] LABS: Absolute Lymphocyte Count 1.48 X10^3/uL (0.83-4.51); Absolute Neutrophil Count 4.6 X10^3/uL (2.0-7.7); Basophil# 0.06 X10^3/uL; Basophil% 0.8 % (0-1); Eosinophil# 0.29 X10^3/uL; Hematocrit 44.4 % (37-47); Hemoglobin 14.1 g/dL (12.0-15.0); Lymphocyte # 1.48 X10^3/ul (0.83-4.51); Lymphocyte % 20.4 % (19-41); Mean Corp Hgb Conc 31.8 g/dL (32-36); Mean Corpuscular Hgb 27.3 pg (27.0-32.0); Mean Platelet Vol. 11.4 fl (6.2-12.0); Monocyte# 0.78 X10^3/uL; Monocyte% 10.8 % (0-10); NRBC Flagged by Analyzer 0 % (0-5); Neutrophil % 63.6 % (47-70); Platelet Count 295 K/mm3 (150-450); RBC Distribution Width CV 13.3 % (11.6-14.6); RBC Distribution Width SD 41.1 fl (35.1-43.9); Red Blood Count 5.16 M/mm3 (4.2-5.4); White Blood Count 7.2 K/mm3 (4.4-11.0)
[2024-05-07 16:22] LABS: D-Dimer Quantitative (DVT/PE) 0.61 FEU/ug/m (0.27-0.49)
[2024-05-07 16:26] VITALS: BP 139/70; PULSE 60; RESP 18; O2SAT 96
[2024-05-07 16:27] LABS: Anion Gap 4 (5-15); BUN 14 mg/dL (7-18); BUN/Creat Ratio 16.1 RATIO (10-20); Calcium,Total 9.3 mg/dL (8.5-10.1); Chloride 111 mmol/L (98-107); Creatinine, Serum 0.87 mg/dL (0.55-1.02); EST Glomerular Filtration Rate 68 mL/min (>60); Est Glom Filt Rate - Afr Amer 82 mL/min (>60); Estimated Creatinine Clearance 78.01 ml/min; Glucose 86 mg/dL (74-106); Potassium 4.1 mmol/L (3.5-5.1); Sodium Level 142 mmol/L (136-145); Troponin-I HS 42 pg/mL (3.0-54.0)
[2024-05-07] MEDS: Doxycycline 100 MG CAPSULE PO (18:03)
[2024-05-07 18:04] VITALS: BP 128/76; BP 128/78; PULSE 69; RESP 18; TEMP 36.6; O2SAT 97
== END 2024-05-07 18:08 | disposition home or self-care (01) ==
PROVIDERS: Emergency Provider Emergency Medicine; PCP Student in an Organized Health Care Education/Training Program; Visit Provider Emergency Medicine
DX: J18.9 Pneumonia, unspecified organism (principal); R00.2 Palpitations; I10 Essential (primary) hypertension
CPT/HCPCS: 71045; 80048; 84484; 85025; 85379; 93005; 99284; A4216

== ENCOUNTER → 2024-11-04 | Outpatient (CLI) | payer MEDICARE, OTHER, SELFPAY | END | disposition home or self-care (01) | PROVIDERS: PCP Student in an Organized Health Care Education/Training Program; Referring Provider Psychiatry & Neurology Sleep Medicine; Visit Provider Psychiatry & Neurology Sleep Medicine | DX: R25.1 Tremor, unspecified (principal); Z87.820 Personal history of traumatic brain injury; H53.2 Diplopia; R27.9 Unspecified lack of coordination; R26.9 Unspecified abnormalities of gait and mobility | CPT/HCPCS: 95819 ==

== ENCOUNTER → 2024-12-11 | Outpatient (CLI) | payer MEDICARE, OTHER, SELFPAY ==
[2024-12-11 15:05] LABS: Pro- Brain NATRIURETIC PEPTIDE 1105 pg/mL (<=900); Troponin T High Sensitivity 19 ng/L (<=14)
[2024-12-13 15:08] LABS: Albumin 3.2 g/dL (2.9-4.4); Alpha-1-Globulins 0.2 g/dL (0.0-0.4); Alpha-2-Globulins 0.7 g/dL (0.4-1.0); Gamma Globulin 1.1 g/dL (0.4-1.8); IMMUNOFIXATION RESULT,S Comment: (.); Immunoglobulin A 330 mg/dL (64-422); Immunoglobulin G 1061 mg/dL (586-1602); Immunoglobulin M 73 mg/dL (26-217); PROEL- TOTAL PROTEIN 6.2 g/dL (6.0-8.5)
== END | disposition home or self-care (01) ==
LOC: LAB 11:43
PROVIDERS: PCP Student in an Organized Health Care Education/Training Program; Referring Provider Internal Medicine Cardiovascular Disease; Visit Provider Internal Medicine Cardiovascular Disease
DX: R06.02 Shortness of breath (principal); E85.4 Organ-limited amyloidosis; I43 Cardiomyopathy in diseases classified elsewhere
CPT/HCPCS: 36415; 82784; 83880; 84165; 84484; 86334; 86335

== ENCOUNTER → 2025-01-01 | Outpatient (CLI) | payer MEDICARE, OTHER, SELFPAY ==
--- NOTE | 2025-01-01 09:49 | ECHODONC_ITS ---
Reason For Study Reason For Study: AMYLOID Procedure This was a 2D Doppler, Color Flow transthoracic echocardiogram. Myocardial strain analysis was performed in this exam to aid in the assessment of cardiac function. Exam performed in department. Left Ventricle Normal LV size. Moderate concentric left ventricular hypertrophy. The left ventricular ejection fraction is 65 %. No regional wall motion abnormalities noted. Right Ventricle Normal RV size. Normal systolic function. Atria Normal left atrium. Normal right atrium. Mitral Valve Normal mitral valve. Tricuspid Valve Normal tricuspid valve. Mild (1+) tricuspid valve insufficiency. Pulmonary artery systolic pressure is 28 mmHg. Aortic Valve Trisinus/trileaflet aortic valve. Great Vessels Normal aortic root. The pulmonary artery is normal size. Inferior vena cava collapse with respiration. Pericardium/Pleural No pericardial effusion. MMode/2D Measurements & Calculations LVIDd: 4.4 cm IVSd: 1.5 cm LVOT diam: 2.1 cm LVIDs: 2.9 cm LVPWd: 1.6 cm LVOT area: 3.6 cm2 RVDd: 3.0 cm FS: 33.9 % asc Aorta Diam: 3.7 cm LAV(MOD-bp): 55.3 ml LVAd ap4: 23.4 cm2 LAV(MOD-bp) Indexed: 24.6 ml/m2 LVLd ap4: 8.8 cm LAV(MOD-sp2): 57.1 ml EDV(MOD-sp4): 52.6 ml LAV(MOD-sp4): 53.6 ml EDV(sp4-el): 52.8 ml LVAs ap4: 10.0 cm2 LVLs ap4: 7.2 cm ESV(MOD-sp4): 12.4 ml ESV(sp4-el): 11.9 ml EF(MOD-sp4): 76.4 % EF(sp4-el): 77.5 % SV(MOD-sp4): 40.2 ml SV(MOD-sp2): 26.9 ml LVAd ap2: 20.0 cm2 LVLd ap2: 8.4 cm SI(MOD-sp4): 17.8 ml/m2 SI(MOD-sp2): 11.9 ml/m2 EDV(MOD-sp2): 40.0 ml EDV(sp2-el): 40.3 ml LVAs ap2: 10.5 cm2 LVLs ap2: 7.4 cm ESV(MOD-sp2): 13.1 ml ESV(sp2-el): 12.6 ml EF(MOD-sp2): 67.2 % SV(sp4-el): 41.0 ml Ao sinus diam: 3.[address] Junction: 2.7 cm LA A4 area: 19.2 cm2 LA dimension(2D): 4.2 cm RA A4 area: 13.0 cm2 TAPSE: 1.9 cm Time Measurements MV dec time: 0.27 sec Doppler Measurements & Calculations MV E max rodger: 119.3 cm/sec Lat Peak E' Rodger: 6.9 cm/sec Med Peak E' Rodger: 6.9 cm/sec MV A max rodger: 115.9 cm/sec E/E' lat: 17.2 E/E' med: 17.2 MV E/A: 1.0 Ao V2 max: 130.6 cm/sec LV V1 max: 105.6 cm/sec MV dec slope: 435.7 cm/sec2 Ao max P.8 mmHg LV V1 max P.5 mmHg Ao V2 mean: 84.7 cm/sec LV V1 mean P.4 mmHg Ao mean P.4 mmHg LV V1 mean: 72.6 cm/sec Ao V2 VTI: 30.7 cm LV V1 VTI: 24.9 cm AV (velocity ratio): 0.81 BRIANNE(I,D): 2.9 cm2 BRIANNE(V,D): 2.9 cm2 SV(LVOT): 88.7 ml PA V2 max: 79.6 cm/sec TR max rodger: 247.6 cm/sec TR max P.5 mmHg ECHO/ONC Echo Complete Interpretation Summary Normal LV size. Moderate concentric left ventricular hypertrophy. Pulmonary artery systolic pressure is 28 mmHg. The left ventricular ejection fraction is 65 %. Apical sparing pattern noted on the myocardial strain imaging The global longit udinal strain = -16.6 % (normal). Ordering Physician: Virgil Woody Referring Physician: Virgil Woody MD Performed By: Galilea Montez RDCS
--- NOTE | 2025-01-01 09:49 | NM_ITS ---
PROCEDURE: PYP SPECT FOR CARDIAC AMYLOID REASON FOR EXAM: AMYLOID TECHNIQUE: Dose: 22 mCi technetium 99 M Oxidronate intravenous. Following radioisotope administration, imaging of the chest and heart were performed with anterior, left anterior oblique, and left lateral positioning. COMPARISON: None. NM/PYP SPECT for Cardiac Amyloid IMPRESSION: Extensive uptake is seen within the heart, predominantly in the apex, posterior wall, and septal wall. 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 Reading Location: [address]
--- OUTSIDE RECORDS SUMMARY | 2025-01-01 19:31 | XMS RPT_ITS | CCD ---
Author Organization [facility] Care Team Providers Care Foundry Helper Name Role Phone Pete Morejon DO Primary Care Provider Pete Morejon DO Primary Care Provider Teo MOLD MAINTENANCE TECHNICIAN.WOLF HUNTERLuna Unavailable Luis Angel MOLD MAINTENANCE TECHNICIAN.Jon COOK Unavailable Dr. Pete Morejon DO Primary Care Provider Dr. Saul Gil MD Attending Provider Dr. Saul Gil MD Referring Provider Dr. Pete Morejon DO Referring Provider Bong SCHWARTZ, Dr. Herman Attending Provider Dr. Virgil Woody MD Referring Provider PETE MOREJON Referring Unavailable PETE MOREJON Primary Care Unavailable QUEENIE SANDERS Referring Unavailable PETE MOREJON Primary Care Unavailable QUEENIE SANDERS Attending Unavailable PETE MOREJON Primary Care Unavailable NESTOR CROWE Referring Unavailable PETE MOREJON Primary Care Unavailable SAUL GIL JR Referring Unavailable PETE MOREJON Primary Care Unavailable SAUL GIL JR Attending Unavailable PETE MOREJON Referring Unavailable PETE MOREJON Primary Care Unavailable GAYLE JIMENEZ Attending Unavailable PETE MOREJON Primary Care Unavailable NESTOR CROWE Attending Unavailable PETE MOREJON Primary Care Unavailable NESTOR CROWE Attending Unavailable PETE MOREJON Primary Care Unavailable GAYLE JIMENEZ Attending Unavailable LUIS ANGEL, JON Referring Unavailable MOREJON, PETE L Primary Care Unavailable MOREJON, PETE L Referring Unavailable MOREJON, PETE L Primary Care Unavailable MOREJON, PETE L Referring Unavailable MOREJON, PETE L Primary Care Unavailable MOREJON, PETE L Referring Unavailable MOREJON, PETE L Primary Care Unavailable MOREJON, PETE L Referring Unavailable MOREJON, PETE L Primary Care Unavailable THOM RUIZ Attending Unavailable SAVANAH SORIA Referring Unavail able MOREJON, PETE L Primary Care Unavailable MOREJON, PETE L Attending Unavailable MOREJON, PETE L Primary Care Unavailable NESTOR CROWE Referring Unavailable MOREJON, PETE L Primary Care Unavailable MOREJON, PETE L Primary Care Unavailable SAVANAH SORIA Attending Unavail able MOREJON, PETE L Primary Care Unavailable Morejon, Pete Referring Unavailable Bong, Virgil Attending Unavailable Morejon, Pete Primary Care Unavailable Bong, [place] Attending Unavailable Bong, Virgil Referring Unavailable Morejon, Pete Primary Care Unavailable Saul Gil Attending Unavailable Saul Gil Referring Unavailable Morejon, Pete Primary Care Unavailable Bong, Virgil Attending Unavailable Bong, [place] Referring Unavailable Morejon, Pete Primary Care Unavailable Cameron Bermudez Attending Unavailable Morejon, Pete Primary Care Unavailable Allergies Allergy Classification Reported Allergen(s) Allergy Type Date of Onset Reaction(s) Facility (20 sources) Acetaminophen / HYDROcodone; Translations: [HYDROCODONE-ACETA MINOPHEN] Drug Allergy 03-25-2011 [facility] (20 sources) rofecoxib; Translations: [ROFECOXIB] Drug Allergy 03-18-2005 GI Upset [facility] Work Phone: (3 sources) HYDROcodone Drug Allergy 05-07-2024 [facility] (1 source) HYDROcodone Drug Allergy 12-11-2024 [facility] Repository (1 source) rofecoxib Drug Allergy 12-11-2024 [facility] Repository Medications Current Medications Medication Drug Class(es) Dates Sig (Normalized) Sig (Original) ascorbic acid 113 mg / beta carotene 7160 mg / cuprous oxide 0.4 mg / dl-alpha tocopheryl acetate 100 unt / zinc oxide 17.4 mg oral tablet (20 sources) Vitamin C Start: 05-07-2024 Vitamins A,C,P-Maab-Djnvgk (Preservision Areds) 2,148 mcg-113 mg-45 mg-17.4mg tablet Active 2 {tbl} PO DAILY November 15, 2024 12:00am administer with AM and PM meals aspirin 81 mg delayed release oral tablet (20 sources) Platelet Aggregation Inhibitor, Nonsteroidal Anti-inflammatory Drug Start: 05-07-2024 take 1 tablet by mouth once daily Aspirin (Adult Aspirin Regimen) 81 mg tablet,delayed release (DR/EC) Active 81 mg PO DAILY May 07, 2024 12:00am Start: 03-28-2019 End: 05-01-2019 take 1 tablet by mouth twice daily at mealtime Aspirin 81 MG tablet,chewable Discontinued 81 mg PO TWICE DAILY WITH MEALS March 28, 2019 12:00am April 26, 2019 12:00am May 01, 2019 12:08am Take 81 mg aspirin twice daily with food for DVT prophylaxis for 4 weeks postoperatively Start: 03-11-2019 End: 03-28-2019 take 1 tablet by mouth once daily Aspirin 81 MG tablet,delayed release (DR/EC) Discontinued 81 mg PO DAILY March 11, 2019 12:00am March 28, 2019 8:28am Start: 09-18-2018 End: 10-02-2018 take 1 tablet by mouth once daily Aspirin (Aspir 81) 81 MG Tablet. Discontinued 81 mg PO DAILY September 18, 2018 1:00am October 02, 2018 7:58am Comment on above: Take 81 mg by mouth once daily. cholecalciferol 0.05 mg oral capsule (2 sources) Vitamin D Start: take 1 capsule by mouth once daily Cholecalciferol (Vitamin D3) 50 mcg (2,000 unit) capsule Active 50 ug PO daily November 15, 2024 12:00am cholecalciferol, vitamin D3, (D3-2000 ORAL) (20 sources) cholecalciferol, vitamin D3, (D3-2000 ORAL) Take by mouth. Active furosemide 40 mg oral tablet (1 source) Loop Diuretic Start: take 1 tablet by mouth once daily Furosemide (Lasix) 40 mg tablet Active 40 mg PO daily 60 December 11, 2024 12:00am LORazepam 0.5 mg oral tablet (3 sources) Benzodiazepine Start: End: LORazepam (ATIVAN) 0.5 mg Indications: Claustrophobia Take 1 tablet 30 minutes prior to MRI. If needed can take additional 1 tablet at time of MRI. Please do not drive or operate heavy machinery on the day of taking the Ativan. 2 tablet 10/21/2024 01/20/2025 Active Mecobalamin (Vitamin B12) 1,000 mcg lozenge (2 sources) Start: take 1000 ug by mouth once daily Mecobalamin (Vitamin B12) 1,000 mcg lozenge Active 1000 ug PO daily November 15, 2024 12:00am allow to dissolve in mouth OR may chew lightly before swallowing 24 hr metoprolol succinate 50 mg extended release oral tablet (20 sources) beta-Adrenergic Titi Start: End: take 1 tablet by mouth once daily Metoprolol Succinate (Toprol Xl) 50 MG tablet extended release 24 hr Active 50 mg PO DAILY September 18, 2018 1:00am Comment on above: Take 1 tablet by [facility] once daily. metroNIDAZOLE 0.0075 mg/mg topical gel (20 sources) Nitroimidazole Antimicrobial Start: Metronidazole 0.75 % gel Active TOPICAL TWICE A DAY November 15, 2024 12:00am metroNIDAZOLE (M ETROGEL) 0.75 % Topical Gel Apply to affected area twice daily. Active Comment on above: Apply to affected ar ea twice daily. perflutren lipid microspheres 1.3 mL in NaCl (PF) 0.9% 10 mL injection (DEFINITY) (1 source) Start: 09-15-19 End: 12-16-19 22 perflutren lipid microspheres 1.3 mL in NaCl (PF) 0.9% 10 mL injection (DEFINITY) predniSONE 10 mg oral tablet (7 sources) Start: 05-26-20 End: 06-07-20 23 predniSONE (DELTASONE) 10 mg tablet Indications: Neck pain on left side , Acute pain of left shoulder , Left hand paresthesia Take 4 tabs daily x 3 days, then 3 tabs x 3 days, 2 tabs x 3 days, then 1 tab x3 days with food. 30 tablet 0 05/26/2023 06/07/2023 Active Comment on above: Take 4 tabs daily x 3 days, then 3 tabs x 3 days, 2 tabs x 3 days, then 1 tab x3 days with food. primidone 50 mg oral tablet (2 sources) Anti-epileptic Agent Start: 12-12-19 take 1 tablet by mouth once daily Primidone 50 mg tablet Active 25 mg PO daily December 11, 2024 12:00am 125 ml sodium chloride 9 mg/ml prefilled syringe (1 source) Start: 09-15-19 End: 12-16-19 sodium chloride 0.9 % (flush) 10 mL (BD POSIFLUSH) triamcinolone acetonide 5 mg/ml topical cream (20 sources) Corticosteroid Start: 11-16-19 Triamcinolone Acetonide 0.5 % cream Active NMA TOPICAL November 15, 2024 12:00am Start: 07-03-2024 triamcinolone acetonide (KENALOG) 0.5 % cream Apply to affected area three times a day. 30 g 1 07/03/2024 Active Start: 01-26-2024 End: 07-03-2024 triamcinolone acetonide (ZAY ALOG) 0.5 % cream Apply to affected area three times a day. 15 g 01/26/2024 07/03/2024 Discontinued Start: 03-14-2022 End: 01-26-2024 triamcinolone acetonide topi miguel 0.5 % ointment Use 1-3 times weekly for maintenance therapy 15 g 0 01/04/2023 01/26/2024 Discontinued Start: 11-02-2021 End: 11-02-2021 triamcinolone acetonide 5 mg injection (KeNALog 10) Start: 09-18-2020 triamcinolone acetonide topical 0.5 % ointment Use every night to affected area x 4 weeks, then use 1-3 x weekly or as needed 15 g 3 09/18/2020 Active Comment on above: Use every night to a ffected area x 4 weeks, then use 1-3 x weekly or as needed Use 1-3 times weekly for maintenance therapy vitamin b12 1 mg oral tablet (20 sources) Vitamin B12 take 1 tablet by mouth once daily cyanocobalamin (VITAMIN B-12) 1,000 mcg tab Take 1,000 mcg by mouth once daily. Active Completed/Discontinued Medications Medication Drug Class(es) Dates Sig (Normalized) Sig (Original) acetaminophen 500 mg oral tablet (20 sources) Start: 03-28-2019 End: 04-13-2019 Acetaminophen 500 MG tablet Discontinued 1000 mg PO EVERY 8 HOURS March 28, 2019 12:00am April 10, 2019 12:00am April 13, 2019 12:10am Do not take over 3000 mg in 24-hour. Start: 03-11-2019 End: 03-28-2019 take 2 tablets by mouth twice daily Acetaminophen 500 MG tablet Discontinued 1000 mg PO TWICE A DAY March 11, 2019 12:00am March 28, 2019 8:28am take 2 tablets by mo [facility] every eight hours as needed acetaminophen (TYLENOL EXTRA STRENGTH) 500 mg tablet Take 1,000 mg by mouth every 8 hours as needed. Active Comment on above: Take 1,000 mg by [facility] every 8 hours as needed. [id number] 200 actuat albuterol 0.09 mg/actuat metered dose inhaler (3 sources) beta2-Adrenergic Agonist Start: 2023 End: 2024 Albuterol Sulfate (Ventolin Hfa) 90 mcg/actuation HFA aerosol inhaler Discontinued 1 - 2 NMA INHALATION EVERY 4 HOURS NEEDED as needed for Wheezing May 07, 2024 12:00am December 11, 2024 10:43am 5 ml bupivacaine hydrochloride 5 mg/ml injection (1 source) Amide Local Anesthetic Start: 2021 End: 2021 bupivacaine (PF) 0.5 % (5 mg/mL) 2.5 mg injection calcium chloride 0.0014 meq/ml / potassium chloride 0.004 meq/ml / sodium chloride 0.103 meq/ml / sodium lactate 0.028 meq/ml injectable solution (1 source) Start: 2024 End: 2024 take 30 mL intravenously every hour 30 mL/hr, INTRAVENOUS, CONTINUOUS, Starting on Mon08/09/24 at 0900, Until Mon08/09/24 at 1010, Preprocedure 1 ml dexamethasone phosphate 4 mg/ml injection (1 source) Corticosteroid Start: 2021 End: 2021 dexAMETHasone sodium phosphate 2 mg injection (DECADRON) diazePAM 10 mg oral tablet (1 source) Benzodiazepine Start: 2024 End: 2024 take 1 tablet by mouth once diazePAM (VALIUM) 10 mg tablet Indications: Thyroid nodule , Abnormal echocardiogram , Cardiac amyloidosis (HCC) Take 1 tablet by mouth once in interventional radiology for 1 dose. 1 tablet 1 08/26/2024 08/26/2024 diphenhydrAMINE (1 source) Histamine-1 Receptor Antagonist Start: 2024 End: 2024 12.5-50 mg, INTRAVENOUS, DIRECTED, Starting on Mon08/09/24 at 1000, Until Mon08/09/24 at 1359, DOSING DIRECTED BY PHYSICIAN FOR PROCEDURAL SEDATION ONLY, Intraprocedure docusate sodium 50 mg / sennosides, jail 8.6 mg oral tablet (3 sources) Start: 2018 End: 2023 Sennosides-Docusate Sodium 1 TABLET tablet Discontinued 2 {tbl} PO TWICE A DAY March 28, 2019 12:00am May 07, 2024 3:11pm Take until first bowel movement, then as needed doxycycline hyclate 100 mg oral capsule (3 sources) Tetracycline-class Drug Start: 2023 End: 2024 take 1 capsule by mouth twice daily Doxycycline Hyclate 100 mg capsule Discontinued 100 mg PO TWICE A DAY May 07, 2024 12:00am November 15, 2024 10:59am famotidine 20 mg oral tablet (3 sources) Histamine-2 Receptor Antagonist Start: 2018 End: 2023 take 1 tablet by mouth once daily Famotidine 20 MG tablet Discontinued 20 mg PO DAILY March 28, 2019 12:00am May 07, 2024 3:11pm 1 ml fentaNYL 0.05 mg/ml injection (1 source) Opioid Agonist Start: 2024 End: 2024 25-100 mcg, INTRAVENOUS, DIRECTED, Starting on Mon08/09/24 at 1000, Until Mon08/09/24 at 1359, DOSING DIRECTED BY PHYSICIAN FOR PROCEDURAL SEDATION ONLY, Intraprocedure gabapentin 100 mg oral capsule (18 sources) Anti-epileptic Agent Start: 2022 End: 2023 take 1-2 capsules by mouth twice daily as needed for pain gabapentin (NEURONTIN) 100 mg capsule Indications: Neck pain on left side , Acute pain of left shoulder , Left hand paresthesia Take 1-2 capsules by mouth two times a day as needed (neck and shoulder pain) for up to 30 days. 60 capsule 06/07/2023 07/03/2024 Discontinued Start: 05-26-2023 End: 06-25-2023 take 1-2 capsules by mouth three times daily as needed for pain gabapentin (NEURONTIN) 100 mg capsule Indications: Neck pain on left side , Acute pain of left shoulder , Left hand paresthesia Take 1-2 capsules by mouth three times a day as needed (neck and shoulder pain) for up to 30 days. 30 capsule 0 05/26/2023 06/07/2023 Discontinued Comment on above: Take 1-2 capsules by mouth three times a day as needed (neck and shoulder pain) for up to 30 days. Take 1-2 capsules by mouth two times a day as needed (neck and shoulder pain) for up to 30 days. iv contrast (will be provided with radiology test) (2 sources) Start: 08-21-2024 End: 08-22-2024 iv contrast (will be provided with radiology test) Indications: Abnormal echocardiogram , Cardiac amyloidosis (HCC) MRI Cardiac w/Qflow Inject, intravenously, once for 1 dose. No IV access, insert saline lock prior to the beginning of sedation, infusion, injection of imaging exam. Discontinue saline lock post exam. If Pt has a central line or IVAD, may access for administration according to line specific nursing protocol. Once exam is complete flush line and de-access according to line specific nursing protocol in the MR contrast administration guidelines link 1 Each 08/21/2024 08/22/2024 Start: 05-26-2023 End: 05-26-2023 inject 1 dose intravenously once, then inject 1 dose intravenously once iv contrast (will be provided with radiology test) Indications: Localized swelling, mass and lump, neck , Fatigue, unspecified type , Neck pain on left side Inject 1 Each intravenously one time only for [address] Neck W IVCON No IV access, insert saline lock prior to the sedation, infusion, injection for imaging exam. Discontinue saline lock post exam. If Pt. has a central line or IVAD, may access for administration according to line specific nursing protocol. Once exam is complete flush line and de-access according to line specific nursing protocol in the CT contrast administration guidelines link. 1 Each 0 05/26/2023 05/26/2023 Comment on above: Inject 1 Each intrav enously one time only for [address] Neck W IVCON No IV access, insert saline lock prior to the sedation, infusion, injection for imaging exam. Discontinue saline lock post exam. If Pt. has a central line or IVAD, may access for administration according to line specific nursing protocol. Once exam is complete flush line and de-access according to line specific nursing protocol in the CT contrast administration guidelines link. meloxicam 7.5 mg oral tablet (14 sources) Nonsteroidal Anti-inflammatory Drug Start: 9 End: 4 take 1 tablet by mouth twice daily Meloxicam 7.5 MG tablet Discontinued 7.5 mg PO TWICE A DAY March 11, 2019 12:00am May 07, 2024 3:11pm Start: 09-18-2018 End: 10-02-2018 take 1 tablet by mouth once daily Meloxicam (Mobic) 7.5 MG tablet Discontinued 7.5 mg PO DAILY September 18, 2018 1:00am October 02, 2018 7:58am Comment on above: Take 1 tablet by anselmo th twice daily. methocarbamol 500 mg oral tablet (16 sources) Muscle Relaxant Start: End: take 1 tablet by mouth at bedtime as needed methocarbamol (ROBAXIN) 500 mg tablet Indications: Neck pain on left side , Acute pain of left shoulder , Left hand paresthesia Take 1 tablet by mouth at bedtime as needed. 20 tablet 1 05/26/2023 07/03/2024 Discontinued Comment on above: Take 1 tablet by anselmo th at bedtime as needed. 5 ml midazolam 1 mg/ml injection (1 source) Benzodiazepine Start: 025 End: 1-5 mg, INTRAVENOUS, DIRECTED, Starting on Mon08/09/24 at 1000, Until Mon08/09/24 at 1359, DOSING DIRECTED BY PHYSICIAN FOR PROCEDURAL SEDATION ONLY, Intraprocedure nirmatrelvir tablet 300 mg (150 mg x 2) and ritonavir tablet 100 mg in a dose pack (PAXLOVID) (1 source) Start: 022 End: 01-03-2 023 nirmatrelvir tablet 300 mg (150 mg x 2) and ritonavir tablet 100 mg in a dose pack (PAXLOVID) Indications: COVID-19 Administer TWO pink nirmatrelvir 150 mg tablets and ONE white ritonavir 100 mg tablet for a total of three tablets twice daily. 30 tablet 0 07/21/2022 07/26/2022 Comment on above: Administer TWO pink nirmatrelvir 150 mg tablets and ONE white ritonavir 100 mg tablet for a total of three tablets twice daily. 2 ml ondansetron 2 mg/ml injection (1 source) Serotonin-3 Receptor Antagonist Start: 025 End: 4 mg, INTRAVENOUS, DIRECTED, Starting on Mon08/09/24 at 1000, Until Mon08/09/24 at 1359, Dosing as directed for intraprocedural use only, Intraprocedure oxyCODONE hydrochloride 5 mg oral tablet (3 sources) Opioid Agonist Start: End: take 1 tablet by mouth every four hours as needed for pain Oxycodone 5 MG tablet Discontinued 5 mg PO EVERY 4 HOURS NEEDED as needed for Mod-Severe Pain (-05/02) 42 7 March 28, 2019 April 03, 2019 12:00am April 05, 2019 12:11am Problems Active Problems Problem Classification Problem Date Documented Date Episodic/Chronic Anxiety disorders (2 sources) Claustrophobia; Translations: [Claustrophobia] Onset: 5 10-21-2024 Chronic Blindness and vision defects (6 sources) Diplopia; Translations: [Diplopia] Onset: 5 10-21-2024 Episodic Cardiac dysrhythmias (5 sources) Palpitations; Translations: [Palpitations] 05-15-2024 Episodic Chronic kidney disease (20 sources) Chronic kidney disease stage 3A ; Translations: [Chronic kidney disease, stage 3a (HCC)] Onset: 3 05-26-2023 Chronic Coronary atherosclerosis and other heart disease (3 sources) Coronary atherosclerosis; Translations: [Atherosclerotic heart disease of [place] coronary artery without angina pectoris] Onset: 5 11-15-2024 Chronic Disorders of lipid metabolism (20 sources) Dyslipidemia; Translations: [Hyperlipidemia, unspecified] Onset: 8 04-23-2018 Chronic Diverticulosis and diverticulitis (2 sources) Diverticular disease; Translations: [Diverticulosis of intestine, part unspecified, without perforation or abscess without bleeding] 11-15-2024 Chronic Epilepsy; convulsions (2 sources) Seizure; 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] Onset: 5 10-21-2024 Episodic Essential hypertension (20 sources) Essential hypertension; Translations: [Essential (primary) hypertension] Onset: 8 07-19-2021 Chronic Heart valve disorders (1 source) Nonrheumatic mitral (valve) insufficiency; Translations: [Nonrheumatic mitral (valve) insufficiency] Onset: 5 Chronic Immunizations and screening for infectious disease (1 source) Needs influenza immunization; Translations: [Encounter for immunization] 05-26-2023 Episodic Intracranial injury (6 sources) History of traumatic brain injury; Translations: [Personal history of traumatic brain injury] Onset: 5 10-21-2024 Episodic Menopausal disorders (20 sources) Menopausal symptom; Translations: [Menopausal and female climacteric states] Onset: 9 Resolved: 2 08-12-2008 Chronic Neoplasms of unspecified nature or uncertain behavior (2 sources) Light chain disease; 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] 10-08-2024 Chronic Nutritional deficiencies (20 sources) Vitamin D deficiency; Translations: [Vitamin D deficiency, unspecified] Onset: 2 Chronic Osteoarthritis (20 sources) Localized, primary osteoarthritis; Translations: [Unilateral primary osteoarthritis, unspecified knee] Onset: 6 01-27-2006 Chronic Other and ill-defined heart disease (20 sources) Left ventricular hypertrophy; Translations: [Cardiomegaly] Onset: 1 04-28-2021 Chronic Other and ill-defined heart disease (2 sources) Cardiomegaly; Translations: [LVH (left ventricular hypertrophy)] Onset: 1 Chronic Other connective tissue disease (1 source) Plantar fasciitis of left foot; Translations: [Plantar fascial fibromatosis] Episodic Other connective tissue disease (1 source) Spasm of cervical paraspinous muscle; Translations: [Other muscle spasm] 06-07-2023 Episodic Other lower respiratory disease (20 sources) Dyspnea; Translations: [Shortness of breath] Onset: 5 05-07-2024 Episodic Other lower respiratory disease (2 sources) Snoring; Translations: [Snoring] 11-15-2024 Episodic Other lower respiratory disease (2 sources) Shortness of breath; Translations: [SOB (shortness of breath)] Onset: 5 Episodic Other nervous system disorders (20 sources) Tremor; Translations: [Tremor, unspecified] 07-19-2021 Episodic Other nervous system disorders (5 sources) Incoordination; Translations: [Unspecified lack of coordination] 10-21-2024 Episodic Other nervous system disorders (5 sources) Abnormal gait; Translations: [Unspecified abnormalities of gait and mobility] 10-21-2024 Episodic Other nervous system disorders (2 sources) Tremor, unspecified; Translations: [Tremor] Onset: Episodic Other nervous system disorders (1 source) Unspecified lack of coordination; Translations: [Incoordination] Onset: 5 Episodic Other nervous system disorders (1 source) Unspecified abnormalities of gait and mobility; Translations: [Abnormality of gait] Onset: 5 Episodic Other nutritional; endocrine; and metabolic disorders (20 sources) Hypoalbuminemia; Translations: [Other disorders of plasma-protein metabolism, not elsewhere classified] Onset: 1 04-28-2021 Chronic Other nutritional; endocrine; and metabolic disorders (7 sources) Cardiomyopathy; Translations: [Organ-limited amyloidosis] 08-21-2024 Chronic Other nutritional; endocrine; and metabolic disorders (2 sources) Organ-limited amyloidosis; 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)] Onset: Chronic Other screening for suspected conditions (not mental disorders or infectious disease) (3 sources) Finding of thyroid gland; Translations: [Abnormal findings on diagnostic imaging of other specified body structures] Onset: 5 09-03-2024 Chronic Other screening for suspected conditions (not mental disorders or infectious disease) (20 sources) Patient encounter status; Translations: [Encounter for other screening for malignant neoplasm of breast] Onset: 9 08-12-2008 Episodic Thais-; endo-; and myocarditis; cardiomyopathy (except that caused by tuberculosis or sexually transmitted disease) (2 sources) Cardiomyopathy in diseases classified elsewhere; 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)] Onset: Chronic Prolapse of female genital organs (20 sources) Disorder of rectum; Translations: [Rectocele] Onset: 9 Resolved: 1 04-19-2011 Chronic Residual codes; unclassified (1 source) Procedure not done; Translations: [Procedure and treatment not carried out, unspecified reason] 05-07-2024 Episodic Spondylosis; intervertebral disc disorders; other back problems (20 sources) Lumbar spondylosis; Translations: [Spondylosis without myelopathy or radiculopathy, lumbar region] Onset: 2 12-06-2011 Chronic Thyroid disorders (6 sources) Thyroid nodule; Translations: [Nontoxic single thyroid nodule] Onset: 5 08-26-2024 Chronic Viral infection (1 source) Disease caused by 2019-nCoV; Translations: [COVID-19] Episodic Past or Other Problems Problem Classification Problem Date Documented Da te Episodic/Chronic Allergic reactions (20 sources) Urticaria; Translations: [Urticaria, unspecified] Onset: 03-10-2010 03-10-2010 Episodic Cancer of cervix (20 sources) Cervical atypism; Translations: [Atypical squamous cells of undetermined significance on cytologic smear of cervix (ASC-US)] Onset: 04-19-2011 04-19-2011 Episodic Conditions associated with dizziness or vertigo (3 sources) Dizziness; Translations: [Dizziness and giddiness] Onset: 07-23-2024 05-07-2024 Episodic Diabetes mellitus without complication (20 sources) Impaired fasting glycemia; Translations: [Impaired fasting glucose] Onset: 03-24-2017 04-19-2017 Episodic Genitourinary symptoms and ill-defined conditions (20 sources) Urgent desire to urinate; Translations: [Urgency of urination] Onset: 08-19-2009 08-19-2009 Episodic Malaise and fatigue (20 sources) Fatigue; Translations: [Other fatigue] Onset: 05-26-2023 05-26-2023 Episodic Nutritional deficiencies (20 sources) Cobalamin deficiency; Translations: [Deficiency of other specified B group vitamins] Onset: 05-26-2023 05-26-2023 Episodic Other bone disease and musculoskeletal deformities (20 sources) Disorder of bone; Translations: [Other specified disorders of bone density and structure, multiple sites] Onset: 03-30-2022 Episodic Other liver diseases (20 sources) Decreased lipoprotein; Translations: [Abnormal levels of other serum enzymes] Onset: 04-19-2017 04-19-2017 Episodic Other nervous system disorders (20 sources) Paresthesia of hand ; Translations: [Paresthesia of skin] Onset: 05-26-2023 05-26-2023 Episodic Other non-traumatic joint disorders (20 sources) Pain in left shoulder; Translations: [Pain in joint, shoulder region] Onset: 05-26-2023 05-26-2023 Episodic Other skin disorders (20 sources) Finding of neck region; Translations: [Localized swelling, mass and lump, neck] Onset: 05-26-2023 05-26-2023 Episodic Pneumonia (except that caused by tuberculosis or sexually transmitted disease) (8 sources) Left lower zone pneumonia; Translations: [Pneumonia, unspecified organism] Onset: 05-28-2024 05-28-2024 Episodic Spondylosis; intervertebral disc disorders; other back problems (20 sources) Chronic sacroiliac joint pain; Translations: [Sacrococcygeal disorders, not elsewhere classified] Onset: 12-06-2011 08-13-2018 Episodic Results Test Name Value Interpretation Reference Range Facility Comprehensive metabolic 2000 panelon 12-24-2024 Albumin [Mass/Vol] 3.6 g/dL Low 3.9-4.9 [facility] Comment on above: Order Comment: Speci men Type: BLOOD SPECIMENOrdering Facility: [facility] Address: [address] [place] [address] Performed By: #### 2 4323-8 ####[facility] [id number] [place] [address] [place] ALP [Catalytic activity/Vol] 68 U/L Normal 34-123 [facility] Comment on above: Order Comment: Speci men Type: BLOOD SPECIMENOrdering Facility: [facility] Address: [address] [place] [address] Performed By: #### 2 4323-8 ####[facility] FABIENNE MILLTOWNCLIA [id number] [place] [address] [place] ALT [Catalytic activity/Vol] 17 U/L Normal 7-38 [facility] Comment on above: Order Comment: Speci men Type: BLOOD SPECIMENOrdering Facility: [facility] Address: [address] [place] [address] Performed By: #### 2 4323-8 ####[facility] MILLTOWNCLIA [id number] [place] [address] [place] Anion gap [Moles/Vol] 12 mmol/L Normal 8-15 [place] Comment on above: Order Comment: Speci men Type: BLOOD SPECIMENOrdering Facility: [facility] Address: [address] [place] [address] Performed By: #### 2 4323-8 ####[facility] MILLWNCLIA [id number] [place] [address] [place] AST [Catalytic activity/Vol] 14 U/L Normal 13-35 [facility] Comment on above: Order Comment: Speci men Type: BLOOD SPECIMENOrdering Facility: [facility] Address: [address] [place] [address] Performed By: #### 2 4323-8 ####[facility] MILLTOWNCLIA [id number] [place] [address] [place] Bilirubin [Mass/Vol] 1.1 mg/dL Normal 0.2-1.3 [facility] Comment on above: Order Comment: Speci men Type: BLOOD SPECIMENOrdering Facility: [facility] Address: [address] [place] [address] Performed By: #### 2 4323-8 ####[facility] MILLTOWNCLIA [id number] [place] [address] [place] Calcium [Mass/Vol] 9.2 mg/dL Normal 8.5-10.2 [facility] Comment on above: Order Comment: Speci men Type: BLOOD SPECIMENOrdering Facility: [facility] Address: [address] [place] [address] Performed By: #### 2 4323-8 ####[facility]ITAL[facility]CL[facility] [id number] [place] [address] [place] Chloride [Moles/Vol] 102 mmol/L Normal 98-107 [facility] Comment on above: Order Comment: Speci men Type: BLOOD SPECIMENOrdering Facility: [facility] Address: [address] [place] [address] Performed By: #### 2 4323-8 ####[facility] [id number] [place] [address] [place] CO2 [Moles/Vol] 25 mmol/L Normal 22-30 [facility] Comment on above: Order Comment: Speci men Type: BLOOD SPECIMENOrdering Facility: [facility] Address: [address] [place] [address] Performed By: #### 2 4323-8 ####[facility] [id number] [place] [address] [place] Creatinine [Mass/Vol] 0.90 mg/dL Normal 0.58-0.96 [place] Comment on above: Order Comment: Speci men Type: BLOOD SPECIMENOrdering Facility: [facility] Address: [address] [place] [address] Performed By: #### 2 4323-8 ####[facility]CLIA [id number] [place] [address] [place] Creatinine and Glomerular filtration rate.predicted panel (S/P/Bld) 67 mL/min/1.73m??? Normal >=60 [facility] Comment on above: Order Comment: Speci men Type: BLOOD SPECIMENOrdering Facility: [facility] Address: [address] [id number] Result Comment: Nicolasa mated Glomerular Filtration Rate (eGFR) is calculated using the 2020 CKD-EPI creatinine equation. This equation utilizes serum creatinine, sex, and age as parameters. The creatinine assay has traceable calibration to isotope dilution-mass spectrometry. Refer to KDIGO guidelines for clinical interpretation. In patients with unstable renal function, e.g. those with acute kidney injury, the eGFR may not accurately reflect actual GFR. Performed By: #### 2 4323-8 ####[facility] [id number] [place] [address] [place] Glucose [Mass/Vol] 110 mg/dL High 74-99 [facility] Comment on above: Order Comment: Speci men Type: BLOOD SPECIMENOrdering Facility: [facility] Address: [address] [place] [address] Result Comment: The [place] Diabetes Association (ADA) provides guidance for cutoff values for fasting glucose and random glucose. The ADA defines fasting as no caloric intake for at least 8 hours. Fasting plasma glucose results between 100 to 125 mg/dL indicate increased risk for diabetes (prediabetes). Fasting plasma glucose results greater than or equal to 126 mg/dL meet the criteria for diagnosis of diabetes. In the absence of unequivocal hyperglycemia, results should be confirmed by repeat testing. In a patient with classic symptoms of hyperglycemia or hyperglycemic crisis, random plasma glucose results greater than or equal to 200 mg/dL meet the criteria for diagnosis of diabetes. Reference: Standards of Medical Care in Diabetes 2016, [place] Diabetes Association. Diabetes Care. 2016.39(Suppl 1). Performed By: #### 2 4323-8 ####[facility]CLIA [id number] [place] [address] [place] Potassium [Moles/Vol] 4.2 mmol/L Normal 3.7-5.1 [place] Comment on above: Order Comment: Cristi men Type: BLOOD SPECIMENOrdering Facility: [facility] Address: [address] [id number] Performed By: #### 2 4323-8 ####[facility] KAISERTOWNCLIA [id number] [place] [address] [place] Protein [Mass/Vol] 6.6 g/dL Normal 6.3-8.0 [facility] Comment on above: Order Comment: Speci men Type: BLOOD SPECIMENOrdering Facility: [facility] Address: [address] [place] [address] Performed By: #### 2 4323-8 ####[facility] KAISERWCOLIA [id number] [place] [address] [place] Sodium [Moles/Vol] 139 mmol/L Normal 136-144 [facility] Comment on above: Order Comment: Speci men Type: BLOOD SPECIMENOrdering Facility: [facility] Address: [address] [place] [address] Performed By: #### 2 4323-8 ####[facility]ENTERLIA [id number] [place] [address] [place] Urea nitrogen [Mass/Vol] 13 mg/dL Normal 7-21 [facility] Comment on above: Order Comment: Speci men Type: BLOOD SPECIMENOrdering Facility: [facility] Address: [address] [place] [address] Performed By: #### 2 4323-8 ####[facility]CLIA [id number] [place] [address] [place] + Protein Elect, Serumon 12-13-2024 Albumin [Mass/Vol] 3.2 g/dL Normal 2.9-4.4 [facility] Comment on above: Order Comment: N Performed By: #### L 3600.4030, L501.4021, L503.7505, L3100.3425 ####[facility] [address] [place], [place], [id number] Albumin/Globulin [Mass ratio] 1.1 {ratio} Normal 0.7-1.7 [facility] Comment on above: Order Comment: N Performed By: #### L 3600.4030, L501.4021, L503.7505, L3100.3425 ####[facility] [address] [place], [address] NDTMO-9-JASZ 0.2 g/dL Normal 0.0-0.4 [facility] Comment on above: Order Comment: N Performed By: #### L 3600.4030, L501.4021, L503.7505, L3100.3425 ####[facility] [address] [place], [address] OPMDM-6-POHZ 0.7 g/dL Normal 0.4-1.0 [facility] Comment on above: Order Comment: N Performed By: #### L 3600.4030, L501.4021, L503.7505, L3100.3425 ####[facility] [address] [place], [address] BETA GLOBULIN 1.0 g/dL Normal 0.7-1.3 [facility] Comment on above: Order Comment: N Performed By: #### L 3600.4030, L501.4021, L503.7505, L3100.3425 ####[facility] [address] [place], [address] GAMMA GLOBULIN 1.1 g/dL Normal 0.4-1.8 [facility] Comment on above: Order Comment: N Performed By: #### L 3600.4030, L501.4021, L503.7505, L3100.3425 ####[facility] [address] [place], [address] Globulin (S) [Mass/Vol] 3.0 g/dL Normal 2.2-3.9 [facility] Comment on above: Order Comment: N Performed By: #### L 3600.4030, L501.4021, L503.7505, L3100.3425 ####[facility] [address] [place], [address] [place] RESULT,S Comment: Normal . [facility] Comment on above: Order Comment: N Result Comment: Pres ence of monoclonal protein is unclear at this time. Suggest repeat in 3 to 6 months if clinically indicated. Performed By: #### L 3600.4030, L501.4021, L503.7505, L3100.3425 ####[facility] [address] [place], [address] IMMUNOGLOB A QN 330 mg/dL Normal 64-422 [facility] Comment on above: Order Comment: N Performed By: #### L 3600.4030, L501.4021, L503.7505, L3100.3425 ####[facility] [address] [place], [address] IMMUNOGLOB G QN 1061 mg/dL Normal 586-1602 [facility] Comment on above: Order Comment: N Performed By: #### L 3600.4030, L501.4021, L503.7505, L3100.3425 ####[facility] [address] [place], [address] IMMUNOGLOB M QN 73 mg/dL Normal 26-217 [facility] Comment on above: Order Comment: N Performed By: #### L 3600.4030, L501.4021, L503.7505, L3100.3425 ####[facility] [address] [place], [address] M-Adriano Not Observed Normal Not Observed [facility] Comment on above: Order Comment: N Performed By: #### L 3600.4030, L501.4021, L503.7505, L3100.3425 ####[facility] [address] [place], [address] NOTE: Comment Normal . [facility] Comment on above: Order Comment: N Result Comment: Prot ein electrophoresis scan will follow via computer, mail, or bmw sales consultant delivery. Performed By: #### L 3600.4030, L501.4021, L503.7505, L3100.3425 ####[facility] [address] [place], [place], [address] Protein [Mass/Vol] 6.2 g/dL Normal 6.0-8.5 [facility] Comment on above: Order Comment: N Performed By: #### L 3600.4030, L501.4021, L503.7505, L3100.3425 ####[facility] [address] [place], [address] Immunofixation Urineon 12-13 [place] Urine Comment Normal . [facility] Comment on above: Result Comment: No m onoclonality detected. Performed at: [address] [id number] Business Ethics Professor: Erick Roberts PhD, Phone: [phone] Performed By: #### L 3600.4030, L501.4021, L503.7505, L3100.3425 ####[facility] [address] [place], [place], [address] 12 Lead EKG performed by [facility] on 12-11-2024 12 Lead EKG performed by [place] [address] [place] [address] 12 Lead EKG performed by [facility] 12/11/24 1037 MR#: [id number] Acct: [id number] Name: MARY REYES Rep #: [id number] : 1950 74 From: Virgil Woody MD Attending Dr: Dr. Virgil Woody MD Status: DEP A MB Ordering Dr: Virgil Woody MD Date: 12/11/24 Location: [facility] Sex: F C Admitted: BMS/12 Lead EKG performed by [facility] ECG Report Interpretation -----Sinus Rhythm -Left axis -anterior fascicular block. -Old inferior infarct -Old anterior infarct. ABNORMAL Electronically signed on 12/11/2024 at 16:05 by Virgil Woodywood Software Version 8610 12/11/24 1608 Date Virgil Woody MD CC: Dr. Pete Morejon, Date Dictated: 12/11/24 1037 Date Transcribed: 12/11/24 1037 Colorectal Surgeon: CO Signed Normal [facility] 12 lead electrocardiography reportOrdered By: Virgil Woody on 12-11-2024 [place] [address] 12 Lead EKG performed by [facility] 12/11/24 1037 MR#: [id number] Acct: [id number] Name: MARY REYES Rep #:[id number] : 1950 74 From: Virgil John Attending Dr: Dr. Virgil Woody MD S tatus: REG AMB Ordering Dr: Virgil Woody MD Date: Location: [facility] Sex: F C Admitted: BMS/12 Lead EKG performed by [facility] Sinus Rhythm -Left axis -anterior fascicular block. -Old inferior infarct Old anterior infarct. ABNORMAL 12/11/24 1104 Date _ Virgil Woody MD CC: Dr. Pete Morejon, ~ Date Dictated: 12/11/24 1037 Date Transcribed: 12/11/24 1037 Colorectal Surgeon: CO Signed [facility] Work Phone: Albumin Elph [Mass/Vol]Order ed By: Virgil Woody on 12-11-2024 Albumin [Mass/Vol] 3.2 g/dL 2.9-4.4 [facility] Cardiology Visit Reporton Cardiology Visit Report [facility] [address] [place] [address] OFFICE VISIT Date of Service: 12/11/24 MR#: [id number] Acct: [id number] Name: MARY REYES Rep #: [id number] : 1950 Provider: Dr. Virgil Woody MD Age/Sex: 74/F Location: [facility] Status: Signed HPI HPI History of Present Illness Details: 74-year-old lady with no previous cardiac history who was sent here for evaluation of an abnormal echocardiogram. She says that dating back to sometime last year she had presented to the emergency room with palpitations and shortness of breath. She went to see her primary provider who performed an EKG and they were sent to the emergency room for evaluation. She had previously been on metoprolol for hypertension. In the emergency room she was evaluated troponin was noted to be normal blood work was normal but D-dimer was elevated. CTA was however not performed. She later on had an echocardiogram performed which in July 2024 which demonstrated ejection fraction of 57% with an abnormal LV strain pattern with apical present physician suggestive of amyloid. In the interim she was noted to have an incidental finding of a thyroid nodule which was biopsied. She denies any dizziness or diaphoresis near syncope or syncope she has had carpal tunnel surgery in the past and also has been told that she has spinal stenosis. She denies any chest pain. Her physical exam here today is unremarkable her electrocardiogram demonstrates sinus bradycardia rhythm with a rate of 63 bpm and no acute changes. Intake Vital Signs 05/07/24 14:26 12/11/24 10:36 Height 5 ft 9 in 5 ft 9 in Weight: 250 lb BMI 36.9 BP 103/59 L Blood Pressure Location Lt brachial Position Sitting Respiration 16 Pulse 62 Pulse Source Monitor Intake Visit Reasons: ABN ECHO/Cardiac Amyloidosis/SOB/HTN/L [facility] Day Care Director Required: No Accompanied by: Self Is patient in pain?: No Allergies hydrocodone (From Vicodin) Allergy (Verified 12/11/24 10:42) Rash rofecoxib (From Vioxx) Adverse Reaction (Verified 12/11/24 10:42) Upset Stomach Medications ???Medication ???Instructions ???Recorded ???Confirmed ???Type metoprolol succinate 50 mg 50 mg PO DAILY bp 09/18/18 5 History tablet,extended release 24 hr (Toprol XL) aspirin 81 mg tablet,delayed 81 mg PO DAILY 05/07/24 12/11/24 H istory release (Adult Aspirin Regimen) cholecalciferol (vitamin D3) 50 50 mcg PO QDAY 11/15/24 12/11/24 H istory mcg (2,000 unit) capsule mecobalamin (vitamin B12) 1,000 1,000 mcg PO QDAY 11/15/24 5 History mcg lozenges metronidazole 0.75 % topical gel topical BID 11/15/24 12/11/24 Hist ory triamcinolone acetonide 0.5 % applic topical 11/15/24 12/11/24 H istory topical cream vitamins A,C,N-wlic-vsyihd 2,148 2 tab PO DAILY 11/15/24 12/11/24 H istory mcg-113 mg-45 mg-17.4 mg tablet (PreserVision AREDS) primidone 50 mg tablet 25 mg PO QDAY 12/11/24 12/11/24 Hi story Have you fallen in the past year?: No PFSH Medical History Palpitations Snoring Thyroid nodule Vitamin D deficiency Hyperlipidemia Dyslipidemia Tremor Atherosclerotic heart disease of lumbee coronary artery without angina pectoris Diverticulosis DDD (degenerative disc disease) Stage 3a chronic kidney disease (CKD) Arthritis LVH (left ventricular hypertrophy) Essential (primary) hypertension Cardiac amyloidosis Abnormal echocardiogram SOB (shortness of breath) Surgical History Hx of fracture of skull History of carpal tunnel repair Hx of arthroscopy of knee Family History (Updated 12/11/24 @ 10:48 by Isabella Edgar RN) Mother Afib Brother Afib Grandfather CVA (cerebral vascular accident) Social History Smoking Status: Never smoker alcohol intake: current alcohol intake frequency: holidays/special occasions only substance use type: does not use ROS Const Const: Negative for fatigue, weakness, headache(s), daytime sleepiness or difficulty sleeping ENT ENT: Negative for headache(s), dizziness or Nosebleed/epistaxis Cardio Chest Pain: No Palpitations: No Edema: None Resp Respiratory: Positive for SOB with activity (with exertion); Negative for SOB at rest, SOB orthopnea SOB lying down or Cough GI GI: Negative nausea, vomiting or heartburn Neuro Neuro: Negative for dizziness, lightheadedness, near syncope, headache(s) or weakness Endo Endo: Negative for fatigue Cardiology Exam Const Appearance: cooperative, healthy appearing, no acute distress, well developed and well groomed Nutritional Appearance: average body habitus and well (more content not included)... Normal [facility] Interpretation of serum or p lasma protein pattern by immunofixation (narrative resultOrdered By: Virgil Woody on 12-11-2024 Protein Fractions Immunofixation Talon [Interp] Not Observed g/dL Not Observed [facility] L501.4021on 12-11-2024 Trop T High Sen 19 ng/L High <=14 [facility] Comment on above: Performed By: #### L 3600.4030, L501.4021, L503.7505, L3100.3425 #### [facility] [address] [place], [address] L503.7505on 12-11-2024 Natriuretic peptide B (Bld) [Mass/Vol] 1105 pg/mL High <=900 [facility] Comment on above: Result Comment: Hear t Failure Unlikely: < 300 pg/mL Heart Failure Likely < 50 Years: > 450 pg/mL 50-75 Years: > 900 pg/mL >75 Years: > 1800 pg/mL Performed By: #### L 3600.4030, L501.4021, L503.7505, L3100.3425 #### [facility] [address] [place], [place], [id number] Natriuretic peptide.B prohor jaciel N-Terminal [Mass/volume] in Serum or PlasmaOrdered By: Virgil Woody on 12-11-2024 Natriuretic peptide.B prohormone N-Terminal [Mass/Vol] 1105 pg/mL High <900 [facility] Comment on above: Heart Failure Unlike ly: < 300 pg/mLHeart Failure Likely< 50 Years: > 450 pg/mL50-75 Years: > 900 pg/mL>75 Years: > 1800 pg/mL No Panel InformationOrdered By: Virgil Woody on 12-11-2024 Addendum Document Comment . [facility] Comment on above: Protein electrophore sis scan will follow via computer,mail, or bmw sales consultant delivery. Serum globulin measurement ( mass/volume)Ordered By: Virgil Woody on 12-11-2024 Globulin (S) [Mass/Vol] 3.0 g/dL 2.2-3.9 [facility] Serum or plasma IgA measurem ent (mass/volume)Ordered By: Virgil Woody on 12-11-2024 IgA [Mass/Vol] 330 mg/dL 64-422 [facility] Serum or plasma IgG measurem ent (mass/volume)Ordered By: Virgil Woody on 12-11-2024 IgG [Mass/Vol] 1061 mg/dL 586-1602 [facility] Serum or plasma alpha 1 glob ulin measurement by electrophoresis (mass/volume)Ordered By: Virgil Woody on 12-11-2024 Alpha 1 globulin Elph [Mass/Vol] 0.2 g/dL 0.0-0.4 [facility] Alpha 1 globulin Elph [Mass/Vol] 0.7 g/dL 0.4-1.0 [facility] Serum or plasma beta globuli n measurement by electrophoresis (mass/volume)Ordered By: Virgil Woody on 12-11-2024 Beta globulin Elph [Mass/Vol] 1.0 g/dL 0.7-1.3 [facility] Serum or plasma gamma globul in measurement by electrophoresis (mass/volume)Ordered By: Virgil Woody on 12-11-2024 Gamma globulin Elph [Mass/Vol] 1.1 g/dL 0.4-1.8 [facility] Serum or plasma immunoelectr ophoresis interpretation (nominal result)Ordered By: Virgil Bong on 12-11-2024 Interpretation IEP [Interp] Comment: . [facility] Comment on above: Presence of monoclon al protein is unclear at this time. Suggestrepeat in 3 to 6 months if clinically indicated. Serum or plasma protein taylor urement (mass/volume)Ordered By: [place] Bong on 12-11-2024 Protein [Mass/Vol] 6.2 g/dL 6.0-8.5 [facility] Troponin T.cardiac [Mass/vol ume] in Serum or Plasma by High sensitivity methodOrdered By: Virgil Bong on 12-11-2024 Troponin T.cardiac High sensitivity method [Mass/Vol] 19 ng/L High <14 [facility] CNPNon 11-18-2024 CNPN Telephone (JCWS) MARY REYES ([id number]) 1950 F Date Time Provider Department 11/18/24 SAUL GIL JR During your visit today, we recorded the following information about you: Aisha De León LPN 11/18/2024 11:55 AM Signed Pt calls to report she completed MRI and EEG at [facility]. Pt reports the earliest she could get in with Dr. Gil to go over results is . Pt is asking if it is ok to wait so long. Please review and advise. VARUN Preciado Jessica, LPN 11/19/2024 1:25 PM Signed Please review- Scan on 11/18/2024 1:47 PM by Provider, LESLEY Mandel: EEG VARUN Bryant William J Jr., MD 11/20/2024 8:37 AM Signed EEG per report was normal. Pt should schedule with ROGER to get in sooner. MD Lucila Brown Jessica, LPN 11/20/2024 1:44 PM Signed Please review MRI as well. VARUN Bryant William J Jr., MD 11/20/2024 2:01 PM Signed MRI brain per report did not show any acute changes. Posterior fossa changes that are mentioned our chronic and suspect due to history of TBI per descriptions of event provided by patient. MD Carlos Brown Barbara, LPN 11/20/2024 2:51 PM Signed Patient notified of results, verbalizes understanding of instructions. Pt made a video appt follow up Zulma Gonzalez LPN Allergies As of Date: 11/18/2024 Noted Allergy Reaction VICODIN (HYDROCODONE-ACETAMIN OPHE*03/25/2011 2 - Rash VIOXX (ROFECOXIB) 03/18/2005 8 - GI Upset Date Reviewed: 10/21/2024 Reviewed by: Saul Gil Jr., MD - Fully Assessed Reason for Visit: Results [95] Prescriptions as of 11/20/2024 - LORazepam (ATIVAN) 0.5 mg Take 1 tablet 30 minutes prior to MRI. If needed can take additional 1 tablet at time of MRI. Please do not drive or operate heavy machinery on the day of taking the Ativan. - metoprolol succinate ER (TOPROL XL) 50 mg 24 hr tablet Take 1 tablet by mouth once daily. - cholecalciferol, vitamin D3, (D3-2000 ORAL) Take by mouth. - cyanocobalamin (VITAMIN B-12) 1,000 mcg tab Take 1,000 mcg by mouth once daily. - triamcinolone acetonide (KENALOG) 0.5 % cream Apply to affected area three times a day. - vit A,C,F-Tosn-Rzmisk (PRESERVISION AREDS) 2,148 mcg-113 mg-45 mg-17.4mg tab Take 1 tablet by mouth daily with breakfast. - metroNIDAZOLE (METROGEL) 0.75 % Topical Gel Apply to affected area twice daily. - acetaminophen (TYLENOL EXTRA STRENGTH) 500 mg tablet Take 1,000 mg by mouth every 8 hours as needed. - aspirin, enteric coated (ASPIRIN, ENTERIC COATED) 81 mg EC tablet Take 81 mg by mouth once daily. 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] 01/27/2006 SYMPTOMATIC FEMALE CLIMACTERIC STATE [N95.1] 08/12/2008 ATROPHIC VAGINITIS [N95.2] 08/12/2008 Screening for colon cancer [Z12.11] 08/12/2008 Cystocele, midline [N81.11] 08/12/2008 04/19/2011 Urgency of Urination [R39.15] 08/19/2009 Urticaria [L50.9] 03/10/2010 Rectocele [N81.6] 04/19/2011 Postmenopausal bleeding [N95.0] 04/19/2011 04/25/2012 ASCUS favor benign [R87.610] 04/19/2011 Chronic SI joint pain [M53.3, G89.29] 12/06/2011 SI (sacroiliac) joint dysfunction [M53.3] 12/06/2011 Lumbar spondylosis [M47.816] 12/06/2011 DDD (degenerative disc disease), lumbar [M51.36*12/06/2011 Lumbar radicular pain [M54.16] 12/06/2011 Lumbar facet arthropathy [M47.816] 12/06/2011 Essential hypertension [I10] Cystocele, midline [N81.11] 04/25/2012 Tremor [R25.1] Low serum HDL [R74.8] 04/19/2017 Impaired fasting glucose [R73.01] 04/19/2017 IFG (impaired fasting glucose) [R73.01] 03/24/2017 Arthritis of right knee [M17.11] 04/23/2018 Abnormal EKG [R94.31] 04/23/2018 Dyslipidemia [E78.5] 04/23/2018 Hypertension, essential [I10] 04/23/2018 LVH (left ventricular hypertrophy) [I51.7] 04/28/2021 Hyperlipidemia, mixed [E78.2] 04/28/2021 Hypoalbuminemia [E88.09] 04/28/2021 Other specified disorders of bone density and s*03/30/2022 Vitamin D deficiency [E55.9] 03/30/2022 Chronic kidney disease, stage 3a (HCC) [N18.31] 05/26/2023 Left hand paresthesia [R20.2] 05/26/2023 Acute pain of left shoulder [M25.512] 05/26/2023 Neck pain on left side [M54.2] 05/26/2023 Fatigue [R53.83] 05/26/2023 Localized swelling, mass and lump, neck [R22.1] 05/26/2023 Vitamin B12 deficiency [E53.8] 05/26/2023 DDD (degenerative disc disease), cervical [M50.*07/30/2024 SOB (shortness of breath) [R06.02] 07/30/2024 Encounter Status:Closed by ZULMA GONZALEZ on 11/20/24 Normal [facility] MR Brain WO contraston 10-31 IMPRESSION: No acute intracranial abnormality. Small parenchymal defect along the right dorsal midbrain, likely due to remote insult. Associated markedly attenuated right superior cerebellar peduncle. Disproportionate infratentorial volume loss, with prominent volume loss of the brainstem including the yajaira, and cerebellar volume loss, noting asymmetric marked volume loss in the right cerebral hemisphere. This is likely predominantly related to the above-described chronic insult, however component of superimposed neurodegenerative process not excluded. Colorectal Surgeon: REVA Transcribe Date/Time: Oct 31 2024 12:28P Dictated by : GEOFF HAMILTON MD This examination was interpreted and the report reviewed and electronically signed by: GEOFF HAMILTON MD on Oct 31 2024 2:52PM [facility] DIVISION OF RADIOLOGY * * *Final Report* * * DATE OF EXAM: Oct 31 2024 11:15AM [facility] 0294 - MRI BRAIN WO IVCON / PROCEDURE REASON: multiple diagnoses * * * * Physician Interpretation * * * * EXAMINATION: MRI BRAIN WO IVCON CLINICAL HISTORY: Tremor History of traumatic brain injury Diplopia Incoordination Remote history of traumatic brain injury approximately 50 years ago. TECHNIQUE: Epilepsy protocol brain MRI without contrast. MQ: [email or web address]_2 COMPARISON: None available. RESULT: Acute Change: There is no evidence of restricted diffusion to suggest an acute infarct. Hemorrhage: No evidence of prior parenchymal hemorrhage on the susceptibility weighted images. Mass Lesion/ Mass Effect: No evidence of an intracranial mass or extra-axial fluid collection. No significant mass effect. Chronic Change: See below regarding infratentorial volume loss. Suspect small chronic insult along the right dorsal midbrain along the right dorsal lateral margin of the cerebral peduncle, with focal parenchymal defect at this level. Associated marked volume loss of the right superior cerebellar peduncle which is poorly visualized. Otherwise few punctate nonspecific white matter FLAIR hyperintensities, nonspecific, but likely minimal chronic microvascular ischemic change. 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 Parenchyma: Mild generalized volume loss. Disproportionate infratentorial volume loss involving the brainstem including the yajaira, and prominent volume loss involving the right greater than left cerebellar hemispheres. Medial temporal structures: Bilateral hippocampi appear symmetric in size and signal contour and demonstrate maintained morphology, within constraints of the acquisition. Bilateral amygdala are symmetric in size and signal. Ventricles: Mild ex vacuo prominence of the fourth ventricle. Otherwise, normal caliber and configuration. Caliber and morphology. Skull Base: Hypothalamic and pituitary region are grossly normal. Craniocervical junction is normal. No significant marrow replacement process. Vasculature: Major intracranial arterial structures, and dural venous sinuses show typical flow void, suggesting patency by spin echo criteria. Other: The visualized paranasal sinuses and mastoid air cells are clear. The orbits and extracranial soft tissues are unremarkable. DIVISION OF RADIOLOGY Provider, [facility] - 10/31/2024 * * *Final Report* * * DATE OF EXAM: Oct 31 2024 11:15AM [facility] 0294 - MRI BRAIN WO IVCON / PROCEDURE REASON: multiple diagnoses * * * * Physician Interpretation * * * * EXAMINATION: MRI BRAIN WO IVCON CLINICAL HISTORY: Tremor History of traumatic brain injury Diplopia Incoordination Remote history of traumatic brain injury approximately 50 years ago. TECHNIQUE: Epilepsy protocol brain MRI without contrast. MQ: [email or web address]_[email or web address] COMPARISON: None available. RESULT: Acute Change: There is no evidence of restricted diffusion to suggest an acute infarct. Hemorrhage: No evidence of prior parenchymal hemorrhage on the susceptibility weighted images. Mass Lesion/ Mass Effect: No evidence of an intracranial mass or extra-axial fluid collection. No significant mass effect. Chronic Change: See below regarding infratentorial volume loss. Suspect small chronic insult along the right dorsal midbrain along the right dorsal lateral margin of the cerebral peduncle, with focal parenchymal defect at this level. Associated marked volume loss of the right superior cerebellar peduncle which is poorly visualized. Otherwise few punctate nonspecific white matter FLAIR hyperintensities, nonspecific, but likely minimal chronic microvascular ischemic change. 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 Parenchyma: Mild generalized volume loss. Disproportionate infratentorial volume loss involving the brainstem including the yajaira, and prominent volume loss involving the right greater than left cerebellar hemispheres. Medial temporal structures: Bilateral hippocampi appear symmetric in size and signal contour and demonstrate maintained morphology, within constraints of the acquisition. Bilateral amygdala are symmetric in size and signal. Ventricles: Mild ex vacuo prominence of the fourth ventricle. Otherwise, normal caliber and configuration. Caliber and morphology. Skull Base: Hypothalamic and pituitary region are grossly normal. Craniocervical junction is normal. No significant marrow replacement process. Vasculature: Major intracranial arterial structures, and dural venous sinuses show typical flow void, suggesting patency by spin echo criteria. Other: The visualized paranasal sinuses and mastoid air cells are clear. The orbits and extracranial soft tissues are unremarkable. IMPRESSION IMPRESSION: No acute intracranial abnormality. Small parenchymal defect along the right dorsal midbrain, likely due to remote insult. Associated markedly attenuated right superior cerebellar peduncle. Disproportionate infratentorial volume loss, with prominent volume loss of the brainstem including the yajaira, and cerebellar volume loss, noting asymmetric marked volume loss in the right cerebral hemisphere. This is likely predominantly related to the above-described chronic insult, however component of superimposed neurodegenerative process not excluded. Colorectal Surgeon: PSCB Transcribe Date/Time: Oct 31 2024 12:28P Dictated by : GEOFF HAMILTON MD This examination was interpreted and the report reviewed and electronically signed by: GEOFF HAMILTON MD on Oct 31 2024 2:52PM EST [facility] Radiology Study observation (narrative) [facility] MR Brain WO contrastOrdered By: [facility] Provider on 10-31-2024 [facility] MRI BRAIN WO IVCONon 025 MRI BRAIN WO IVCON * * *Final Report* * * DATE OF EXAM: Oct 31 2024 11:15AM [facility] 0294 - MRI BRAIN WO IVCON / PROCEDURE REASON: multiple diagnoses * * * * Physician Interpretation * * * * EXAMINATION: MRI BRAIN WO IVCON CLINICAL HISTORY: Tremor History of traumatic brain injury Diplopia Incoordination Remote history of traumatic brain injury approximately 50 years ago. TECHNIQUE: Epilepsy protocol brain MRI without contrast. MQ: MRBWO_2 COMPARISON: None available. RESULT: Acute Change: There is no evidence of restricted diffusion to suggest an acute infarct. Hemorrhage: No evidence of prior parenchymal hemorrhage on the susceptibility weighted images. Mass Lesion/ Mass Effect: No evidence of an intracranial mass or extra-axial fluid collection. No significant mass effect. Chronic Change: See below regarding infratentorial volume loss. Suspect small chronic insult along the right dorsal midbrain along the right dorsal lateral margin of the cerebral peduncle, with focal parenchymal defect at this level. Associated marked volume loss of the right superior cerebellar peduncle which is poorly visualized. Otherwise few punctate nonspecific white matter FLAIR hyperintensities, nonspecific, but likely minimal chronic microvascular ischemic change. 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 Parenchyma: Mild generalized volume loss. Disproportionate infratentorial volume loss involving the brainstem including the yajaira, and prominent volume loss involving the right greater than left cerebellar hemispheres. Medial temporal structures: Bilateral hippocampi appear symmetric in size and signal contour and demonstrate maintained morphology, within constraints of the acquisition. Bilateral amygdala are symmetric in size and signal. Ventricles: Mild ex vacuo prominence of the fourth ventricle. Otherwise, normal caliber and configuration. Caliber and morphology. Skull Base: Hypothalamic and pituitary region are grossly normal. Craniocervical junction is normal. No significant marrow replacement process. Vasculature: Major intracranial arterial structures, and dural venous sinuses show typical flow void, suggesting patency by spin echo criteria. Other: The visualized paranasal sinuses and mastoid air cells are clear. The orbits and extracranial soft tissues are unremarkable. IMPRESSION: No acute intracranial abnormality. Small parenchymal defect along the right dorsal midbrain, likely due to remote insult. Associated markedly attenuated right superior cerebellar peduncle. Disproportionate infratentorial volume loss, with prominent volume loss of the brainstem including the yajaira, and cerebellar volume loss, noting asymmetric marked volume loss in the right cerebral hemisphere. This is likely predominantly related to the above-described chronic insult, however component of superimposed neurodegenerative process not excluded. Colorectal Surgeon: PSCB Transcribe Date/Time: Oct 31 2024 12:28P Dictated by : GEOFF HAMILTON MD This examination was interpreted and the report reviewed and electronically signed by: GEOFF HAMILTON MD on Oct 31 2024 2:52PM EST [id number] Normal [facility] CNOVon 10-21-2024 CNOV Office Visit (NEMOWS ) MARY REYES ([id number]) 1950 F Date Time Provider Department 10/21/24 2:20 PM SAUL GIL JR During your visit today, we recorded the following information about you: Pulse Blood pressure Weight 58/minute 128/81 113.9 kg Rashid Jain LPN 10/21/2024 5:55 PM Signed 10/15/2024 PROMIS [facility] Physical Health Summary Physical health: Very good Everyday physical activity, ability: Mostly Fatigue: Mild Pain level: 2 General health: Good Social activities/roles, ability: Very good Physical Health T-Score 50.8 (Very Good) Physical Health Percentile 53 PROMIS [facility] Mental Health Summary Quality of life: Very good Mental health (mood,thinking): Very good Social satisfaction: Very good Emotional problems (anxious,depressed): Never Mental Health T-Score 56 (Excellent) Mental Health Percentile 73 Percentiles provide an indication of how a patient's score ranks in relation to the [place] general population. > 31st percentile is within normal limits or better *< 31st percentile is at least ? SD worse than population, which may be clinically relevant < 16th percentile is at least 1 SD worse than population and warrants attention 10/15/2024 Sleep Apnea Probability Snores loudly: Yes Tired, fatigued or sleepy in daytime: No Stops breathing or choking/gasping during sleep: No High blood pressure: No Sleep Apnea Probability Score: 47 (Sleep study not recommended) Saul Gil Jr., MD 10/21/2024 5:55 PM Signed NEW PATIENT (CONSULT) HISTORY AND PHYSICAL EXAM PRIMARY CARE PHYSICIAN: Pete Morejon DO REASON FOR CONSULT: Tremors REFERRING PHYSICIAN: Pete Morejon DO CHIEF COMPLAINT: Progression of tremors and history of TBI Consultation requested by Pete Morejon DO for an opinion regarding chief complaint of Patient presents with: New Patient: C/o Tremos in left hand x20 yrs, progressing, tremors all day and my final recommendations will be communicated back to the requesting physician by way of shared medical record or letter via [place] mail. HISTORY OF PRESENT ILLNESS: Mary Reyes is a 74 year old female, BMI 37.89 kg/m2 with a PMH significant for that below. 50 years ago was skating in [employer] and had a skull fracture. at that time did not have a head imaging other than a XR. Started having diplopia and was transferred to [facility] and then returned home. needed therapy to walk. lost fine motor skills on R side and has chronic numbness on the L side (including loss of temperature - burnt self taking things out of the oven). Patient still uncertain of final dx. Patient was initially R handed but post event, became L handed. States after 30 years noticed the L thumb was shaking. 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 5 years after that had an ankle that was swelling up and saw ortho and was told some difference in gait; pt explained that she had chronic weakness on R side -- sent to neurologist in [facility] and saw twice. had an MRI brain and told it was not PD or MS and that she was michelle as damage was at the brain stem (referring to skating accident). Tremor has increased to involve not just hand but head as well. States has no control over the tremor. Rhythmic. Tremor more obvious when tired or stressed. Not circadian. Patient was placed on metoprolol for termor but no impact. Pt also feels voice more raspy as tremor getting worse. No changes in walking. No constipation. REVIEW OF SYSTEMS GENERAL:No weight loss, malaise or fevers. HEENT:Negative for frequent or significant headaches, No changes in hearing or vision, no nose bleeds or other nasal problems NECK:Negative for lumps, goiter, pain and significant neck swelling RESPIRATORY: Negative for cough, wheezing or shortness of breath. CARDIOVASCULAR: Negative for chest pain, leg swelling or palpitations. GASTROINTESTINAL: Negative for abdominal discomfort, blood in stools or black stools or change in bowel habits GENITOURINARY: No history of dysuria, frequency or incontinence MUSCULOSKELETAL: Negative for joint pain or swelling, back pain or muscle pain. NEUROLOGIC:See HPI. SKIN:Negative for lesions, rash, and itching. HEMATOLOGIC/LYMPHATIC /IMMUNOLOGIC:Negative for prolonged bleeding, bruising easily or swollen nodes. ENDOCRINE: Negative for cold or heat intolerance, polyuria, polydipsia and goiter. The remainder of the ROS was reviewed and is negative. LAB/IMAGING: Reviewed and include: WBC (k/uL) Date Value 07/23/2024 7.56 RBC (m/uL) Date Value 07/23/2024 4.99 Hemoglobin (g/dL) Date Value 07/23/2024 13.8 Hematocrit (%) Date Value 07/23/2024 43.5 MCV (fL) Date Value 07/23/2024 87.2 MCH (pg) Date Value 07/23/2024 27.7 MCHC (g/dL) Date Value 07/23/2024 (more content not included)... [facility]ARY REYES ([id number]) 1950 F Date Time Provider Department 10/16/24 PETE MOREJON [facility] During your visit today, we recorded the following information about you: Mary Chavez LPN 10/16/2024 7:36 PM Signed Mary Reyes [facility] My Chart Rx [place] I have had several tests since my complaint of shortness of breath but have not heard from anyone with results. My thyroid biopsy was benign according to the test results on my chart but I have not heard from anyone about results or follow-up. Also,a cardiac MRI was ordered but I don't understand why and would rather not have one if not necessary because I am claustrophobic. I was referred to the Hematology Dept and made an appointment even though I was not sure why, however the doctor called before I went to tell me he did not think it was necessary. I am not sure if any of this has anything to do with my shortness of breath and have no idea where to go from here. I would like some information and direction. Pete Morejon DO 10/16/2024 8:09 PM Signed I am not sure what patient isn't understanding. Please inform patient that her labs were further reviewed by [employer] and are okay and no need for further work up after the specialist has seen these results. Her surgeon should have given her the results for the thyroid biopsy, which is Dr. Jimenez. From what I can see in her chart, the right lobe thyroid biopsy shows that the nodule is likely benign and normal appearing on cellular analysis Message was given to her on 08/22 for her ECHO results and why a cardiac MRI or seeing Per Diem Rn for further work up is needed to help further evaluate her shortness of breath. I am not sure what patient is still needing us to tell her to help her understand her symptoms DO Lani Hammer Amanda, ROCKY 10/17/2024 11:20 AM Signed Called and left a voicemail for the Patient on her home and cell phone to call back and ask for a nurse to receive the providers message. ROCKY Hernandez M Robin, RN 10/17/2024 11:46 AM Signed Pt returned call and given provider's message below with verbalized understanding. Pt agreeable to see arresting gear operator, and states if she is not able to see [facility] arresting gear operator in [place], she prefers to see [facility] [facility] to stay in [place]. Jon Plasencia APRN.JOYCE 10/17/2024 11:48 AM Signed Order placed for the cardiology consult. 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 - cholecalciferol, vitamin D3, (D3-2000 ORAL) Take by mouth. - cyanocobalamin (VITAMIN B-12) 1,000 mcg tab Take 1,000 mcg by mouth once daily. - triamcinolone acetonide (KENALOG) 0.5 % cream Apply to affected area three times a day. - vit A,C,H-Xtca-Yatnay (PRESERVISION AREDS) 2,148 mcg-113 mg-45 mg-17.4mg tab Take 1 tablet by mouth daily with breakfast. - metroNIDAZOLE (METROGEL) 0.75 % Topical Gel Apply to affected area twice daily. - acetaminophen (TYLENOL EXTRA STRENGTH) 500 mg tablet Take 1,000 mg by mouth every 8 hours as needed. - aspirin, enteric coated (ASPIRIN, ENTERIC COATED) 81 mg EC tablet Take 81 mg by mouth once daily. 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] 01/27/2006 SYMPTOMATIC FEMALE CLIMACTERIC STATE [N95.1] 08/12/2008 ATROPHIC VAGINITIS [N95.2] 08/12/2008 Screening for colon cancer [Z12.11] 08/12/2008 Cystocele, midline [N81.11] 08/12/2008 04/19/2011 Urgency of Urination [R39.15] 08/19/2009 Urticaria [L50.9] 03/10/2010 Rectocele [N81.6] 04/19/2011 Postmenopausal bleeding [N95.0] 04/19/2011 04/25/2012 ASCUS favor benign [R87.610] 04/19/2011 Chronic SI joint pain [M53.3, G89.29] 12/06/2011 SI (sacroiliac) joint dysfunction [M53.3] 12/06/2011 Lumbar spondylosis [M47.816] 12/06/2011 DDD (degenerative disc disease), lumbar [M51.36*12/06/2011 Lumbar radicular pain [M54.16] 12/06/2011 Lumbar facet arthropathy [M47.816] 12/06/2011 Essential hypertension [I10] Cystocele, midline [N81.11] 04/25/2012 Tremor (more content not included)... 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 Wendi Flynn 10/07/2024 3:27 PM Signed 2ND ATTEMPT-lvm for patient to return the call to schedule Zulma Higgins, ROCKY 10/08/2024 11:30 AM Signed Pt returned the call. Attempted to transfer pt to Hem/OC dept without success. LM with Janine to call pt back on her cell phone [phone] to schedule appt. Pratima Bhagat 10/09/2024 11:41 AM Signed Scheduled with patient Allergies As of Date: 10/03/2024 Noted Allergy Reaction VICODIN (HYDROCODONE-ACETAMIN OPHE*03/25/2011 2 - Rash VIOXX (ROFECOXIB) 03/18/2005 8 - GI Upset Date Reviewed: 09/09/2024 Reviewed by: Nahomi Jama LPN - Fully Assessed Reason for Visit: New Patient [172] Prescriptions as of 10/09/2024 - metoprolol succinate ER (TOPROL XL) 50 mg 24 hr tablet Take 1 tablet by mouth once daily. - cholecalciferol, vitamin D3, (D3-2000 ORAL) Take by mouth. - cyanocobalamin (VITAMIN B-12) 1,000 mcg tab Take 1,000 mcg by mouth once daily. - triamcinolone acetonide (KENALOG) 0.5 % cream Apply to affected area three times a day. - vit A,C,M-Pyjp-Smhcpj (PRESERVISION AREDS) 2,148 mcg-113 mg-45 mg-17.4mg tab Take 1 tablet by mouth daily with breakfast. - metroNIDAZOLE (METROGEL) 0.75 % Topical Gel Apply to affected area twice daily. - acetaminophen (TYLENOL EXTRA STRENGTH) 500 mg tablet Take 1,000 mg by mouth every 8 hours as needed. - aspirin, enteric coated (ASPIRIN, ENTERIC COATED) 81 mg EC tablet Take 81 mg by mouth once daily. 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] 01/27/2006 SYMPTOMATIC FEMALE CLIMACTERIC STATE [N95.1] 08/12/2008 ATROPHIC VAGINITIS [N95.2] 08/12/2008 Screening for colon cancer [Z12.11] 08/12/2008 Cystocele, midline [N81.11] 08/12/2008 04/19/2011 Urgency of Urination [R39.15] 08/19/2009 Urticaria [L50.9] 03/10/2010 Rectocele [N81.6] 04/19/2011 Postmenopausal bleeding [N95.0] 04/19/2011 04/25/2012 ASCUS favor benign [R87.610] 04/19/2011 Chronic SI joint pain [M53.3, G89.29] 12/06/2011 SI (sacroiliac) joint dysfunction [M53.3] 12/06/2011 Lumbar spondylosis [M47.816] 12/06/2011 DDD (degenerative disc disease), lumbar [M51.36*12/06/2011 Lumbar radicular pain [M54.16] 12/06/2011 Lumbar facet arthropathy [M47.816] 12/06/2011 Essential hypertension [I10] Cystocele, midline [N81.11] 04/25/2012 Tremor [R25.1] Low serum HDL [R74.8] 04/19/2017 Impaired fasting glucose [R73.01] 04/19/2017 IFG (impaired fasting glucose) [R73.01] 03/24/2017 Arthritis of right knee [M17.11] 04/23/2018 Abnormal EKG [R94.31] 04/23/2018 Dyslipidemia [E78.5] 04/23/2018 Hypertension, essential [I10] 04/23/2018 LVH (left ventricular hypertrophy) [I51.7] 04/28/2021 Hyperlipidemia, mixed [E78.2] 04/28/2021 Hypoalbuminemia [E88.09] 04/28/2021 Other specified disorders of bone density and s*03/30/2022 Vitamin D deficiency [E55.9] 03/30/2022 Chronic kidney disease, stage 3a (HCC) [N18.31] 05/26/2023 Left hand paresthesia [R20.2] 05/26/2023 Acute pain of left shoulder [M25.512] 05/26/2023 Neck pain on left side [M54.2] 05/26/2023 Fatigue [R53.83] 05/26/2023 Localized swelling, mass and lump, neck [R22.1] 05/26/2023 Vitamin B12 deficiency [E53.8] 05/26/2023 DDD (degenerative disc disease), cervical [M50.*07/30/2024 SOB (shortness of breath) [R06.02] 07/30/2024 Encounter Status:Closed by MARKO VÁZQUEZ on 10/09/24 [facility] CNPMaryan 09-11-2024 CNPN Telephone (MEPRAD) MARY REYES ([id number]) 1950 F Date Time Provider Department 09/11/24 GAYLE JIMENEZ During your visit today, we recorded the following information about you: Gayle Jimenez MD 09/11/2024 12:33 PM Signed Left message on VM Identified by number and name. Told patient thyroid biopsy was benign Recommend follow up US of thyroid in a year, can be taken care of by Dr. Morejon Allergies As of Date: 09/11/2024 Noted Allergy Reaction VICODIN (HYDROCODONE-ACETAMIN OPHE*03/25/2011 2 - Rash VIOXX (ROFECOXIB) 03/18/2005 8 - GI Upset Date Reviewed: 09/09/2024 Reviewed by: Nahomi Jama LPN - Fully Assessed Prescriptions as of 09/11/2024 - cholecalciferol, vitamin D3, (D3-2000 ORAL) Take by mouth. - cyanocobalamin (VITAMIN B-12) 1,000 mcg tab Take 1,000 mcg by mouth once daily. - triamcinolone acetonide (KENALOG) 0.5 % cream Apply to affected area three times a day. - vit A,C,R-Utyh-Gdztkf (PRESERVISION AREDS) 2,148 mcg-113 mg-45 mg-17.4mg tab Take 1 tablet by mouth daily with breakfast. - metoprolol succinate ER (TOPROL XL) 50 mg 24 hr tablet Take 1 tablet by mouth once daily. - metroNIDAZOLE (METROGEL) 0.75 % Topical Gel Apply to affected area twice daily. - acetaminophen (TYLENOL EXTRA STRENGTH) 500 mg tablet Take 1,000 mg by mouth every 8 hours as needed. - aspirin, enteric coated (ASPIRIN, ENTERIC COATED) 81 mg EC tablet Take 81 mg by mouth once daily. 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] 08/12/2008 ATROPHIC VAGINITIS [N95.2] 08/12/2008 Screening for colon cancer [Z12.11] 08/12/2008 Cystocele, midline [N81.11] 08/12/2008 04/19/2011 Urgency of Urination [R39.15] 08/19/2009 Urticaria [L50.9] 03/10/2010 Rectocele [N81.6] 04/19/2011 Postmenopausal bleeding [N95.0] 04/19/2011 04/25/2012 ASCUS favor benign [R87.610] 04/19/2011 Chronic SI joint pain [M53.3, G89.29] 12/06/2011 SI (sacroiliac) joint dysfunction [M53.3] 12/06/2011 Lumbar spondylosis [M47.816] 12/06/2011 DDD (degenerative disc disease), lumbar [M51.36*12/06/2011 Lumbar radicular pain [M54.16] 12/06/2011 Lumbar facet arthropathy [M47.816] 12/06/2011 Essential hypertension [I10] Cystocele, midline [N81.11] 04/25/2012 Tremor [R25.1] Low serum HDL [R74.8] 04/19/2017 Impaired fasting glucose [R73.01] 04/19/2017 IFG (impaired fasting glucose) [R73.01] 03/24/2017 Arthritis of right knee [M17.11] 04/23/2018 Abnormal EKG [R94.31] 04/23/2018 Dyslipidemia [E78.5] 04/23/2018 Hypertension, essential [I10] 04/23/2018 LVH (left ventricular hypertrophy) [I51.7] 04/28/2021 Hyperlipidemia, mixed [E78.2] 04/28/2021 Hypoalbuminemia [E88.09] 04/28/2021 Other specified disorders of bone density and s*03/30/2022 Vitamin D deficiency [E55.9] 03/30/2022 Chronic kidney disease, stage 3a (HCC) [N18.31] 05/26/2023 Left hand paresthesia [R20.2] 05/26/2023 Acute pain of left shoulder [M25.512] 05/26/2023 Neck pain on left side [M54.2] 05/26/2023 Fatigue [R53.83] 05/26/2023 Localized swelling, mass and lump, neck [R22.1] 05/26/2023 Vitamin B12 deficiency [E53.8] 05/26/2023 DDD (degenerative disc disease), cervical [M50.*07/30/2024 SOB (shortness of breath) [R06.02] 07/30/2024 Encounter Status:Closed by GAYLE JIMENEZ on 09/11/24 [facility] CYTOLOGY NON-GYNOrdered By: Matilde Lacy on 09-11-2024 Case Report Medical Cytology Report Case: [id number] Authorizing Provider: Gayle Jimenez MD Collected: 09/09/2024 11:49 AM Ordering Location: General Surgery Received: 09/09/2024 04:58 PM Pathologist: Matilde Lacy MD Specimen: Thyroid, Right, Lobe [facility] Work Phone: Clinical History r0oimYYjJTWzzUDkGUEb N XhcneFtHZXqvDIsZ5Djoi xmFWgyMV8mLC5csBfjxRA geQSvNOIbHgZsp5bgq568 cEZyf8reRZMNdlgciNr1q KbqR17lr4R1PwppU61rwN DiDVH6WRFjOGWnlJWgCVO zSII2THAxoBJlO9ahWLBy MP6pwzqiGKsuLEynXWLzx UD1TILkfZUqB9GjSCZhQS chVZWyiqn3MvBpJt9ilBW yeTcyMFxwYXJkXHBsYWlu UFTfOjUdNMm6br5tNRYHt 9L7sLHrgCPzRTNldqYIPd zzxGGcquXrGKy4VYQgrIX yfQ== [facility] Work Phone: FINAL DIAGNOSIS o5pktMUaBSXxqVGdJOXj N HgdbxQzYOXhzMLtJ7Ceyd ydGXobXF0uEX1ckMlxiEW hkZUbBCInCeHqg1osb529 wWGts2lfRRDGrgdukPh3m TvkX53di7U2EmnjW3zyMG QwXGdyZWVuMFxibHVlMDt ccmVkMFxncmVlbjBcYmx1 FBX2LWs6RKJcnNSgynVuM aUaOYMqyAKglRG3CWEzMY 1mvrxtVyFzCK6ohznfHvI aBI8yajs7IhZgTY4lxdfw YqNjBRjqOCBurpo4AlFmH s5ylRLxlIjfGHfzT8tftP 1xBlM3ETaiX5vwlS3iHIx 6VJukJYJsqLJ0eusqIZpm PAMwicN6zokuLQvkFDBey KZ9eykiCVasSTCoYxY3fm cyMFxwYXJkXHBsYWluXGJ cZnMyMlxjZjEgQSAtIFRo iUJmgBYsRRDpM8i0YFamY mUsIEZOQSAgXHBhciAgIC AgICAgICAgQmVuaWduLlx wYXIgICAgICAgICAgIEJl ksugneMrq9lpvHT7dKUtX QNtkFwtBUPxUYUil1pqa6 lkLlxwYXIgICAgICBccGF zDWGvWZj1FODlVFSkDMOi XHBhclxwYXJcYjAgVGhlI UKrzSiai7ctQgMyRIqnXI Dkz6XgxcV3DNUqDXVjr23 rjDU1RJDzy1f2aML2dHvh ULVdh6O6ONCnlwRPKMv7G OBxG6NydIPHjI6yapgnEM dqy0erfTPQuIfwJUk4YXO vrQDmNSMpI3HmTICgives MFxjZjBccGFyfQ== [facility] Work Phone: Gross Description b0tosDCvQIMpdRTHFNGn M KMmAW0rtJrxkXs2oDtsQK LaxyN8mAMrVLpyd0fyXEG 0b5ylgrVIUwjoCTZiEA2j OXyfOJGcQD7vLvOoHRIpC mYxXHBhcGVydzEyMjQwXH RsqGNhjDS0VKYiRN5ttnw lYZbqGDwwAOTkqfP5GHRj gZLsM1NcKIOmNB6ezcitP WT4FXOHWxxlPf7mjFJwzU tcZjFcZmNoYXJzZXQwXGZ xz9lrooWOxgyndXg1jU0Y YBDsS7VoJN8Yq6rdDWFqu FSrQMS1YRfag3vjSNzmNS F5OBWdDHPbIEVuZE1CQkA nMCi9LWRdDgK0PyL4GGb7 DSIOECHzDEL1NQx3ORZeH Kg2XKvwGMwoiHAfGNJmJQ UbMPQjUZcwulY2a1mzZCG buVXdOXE1FJati3spPDkx PMB8SSPnEwReUKIjYR7LV yUaENy3PNJyCeK2CyF1KB k4OAXXHyQfFuFnHdW8ZCt 9HbJkUXg2TNc0KGsYWeNu SEYhGEDtHuZ7CPX0THU8T CBcXHQgMiBcXHNzIDMgXF zqzRReZG2wmKxxFEIpPO5 EPMGaHJyuSFBzFoEmWM1j DEt6xv5hWWnqCbjztSZqU GuvZaXjnYWyG2vgLsGpQr xwYXIgDQpccGFyZCANClx wbGFpblxsdHJjaFxmczIy NBHvfEDLZHW5HL5tKQRUR lxsdHJwYXIgDQozMCBjYy BccHJvdGVjdHtcZmllbGR 2VYrpDksefY0fjJOCCXEX VbaHNnrbueVoJT3WIPYTE bYPWA52PLGrDfM4xHE9YN 64OGWfWFPjdVDvZIvlN13 1Y6ueMOU2NWWkTJrra8ts OTVxXEsyx3UlQLaOSBKCI D7EQQ3jeMW5XAaHATLKQL vnGJZ0EZS8YVopfCybEqr hsgDgfHGpUeXOiN4fdLfg bK2mkYNtB1ziPrOnKzHrI TIet5NmH5R7WTCpIAbpt0 rvJUEdHDabx8SwBMbEITL RCB3LIM7jkMV1KJeRRSAF V7iCjUH9MZhcZUrjsUG8x 8traNJfn6w7JCvaUYM7wI Jkwak2VGFhGCmtj3bvIVE lPKimo8CkMMgUJHAIXY7M UV6diIS8TYoGKLRVRUyuG GA4BVO4XijeqSxtTttzqh PwfXYcGeQBrD7sdMcwuY6 wxBWhS2ybFbRwAgOiSTIn u8EpF5H0ZDYqFRnle2msK RYdQRepf9FqFZwENNSBNS 6MXZ5vnAD4IBmXRTHQV7x GeRQ6XSjySJhwjVC1q6ts jQBdm4g0YFrmOKH6eWI4c P7SxKQ2QJEoFJurh2lzIR TdECoqb6OvKNnKCETTRC7 IKK0yyBO1PJfZHVUAUKkf QDF1KTs2D1zkoXfzMwqwz jSglJIsLhMDyJ5smLrilA 6akPLgW8orEhNaMaOcGJT iq0QuV0N2YFEqIOdfp6rf TKUbPWfab6WnJWrEYWAWP C8NAJ3wdCX7QOdMKOQFH9 oYvLZ4GEnnMZl4uYL0z6i pvYPcu1z9IPphBRP8iWyx zPlzbJRitTbfiDBys9lxx HHrIXnaHxcmnCIjttJ2CV iGGMEAMHsLDqBsDR1yKJd TD8ESPrX4HISiKeDqyNR3 VF99XYWkELZklUIyWVgpI 709AYLuYYmoZPv1grTyXQ ZrIqDvLvRlJTBir1XoZ0Y 1XTQdIRjeb9ojKERjNVhe e5BxKYjFDZQFBD9FQB3qg RE4QOtVEYAUP5rFvKZ8IR A5R9n8xSF6h1ldgBFww4t 7FIorPVL4wMDraJ1IrnZq CJFgVGTTWYxsZBImy3Vxf 1xmaWVsZHtcKlxmbGRpbn M2UJfOLZCOBWjRBlCgGM3 uLEfHR9RSApL1TJB6OSd1 rDP4DZ84DYBsHVVlsDHkG BsgU436BBKcGTpiLFs0jc NoXGZzMjIgIHByZXBhcmV hEyziWVRsEXbovYKpAC6L HFJkax9uBOSyW6TxjbQkS HBhciANClxzYTMwXGVwaW UGq4NlMFJQMvd7NM1UCDO vKASfcBWITXV0ZD9aUSyx UQOeB1QvK2ObvjE5p5eka Vock1QhfSIzNG0fiFSmEL 9XUDAhttWuQTqrbHevpI3 gDQp9 [facility] Work Phone: Performing Lab v0kgpHPoZLEmt4vfRVMj b GFuZzEwMzNcZnRuYmpcdW MxIHtccnRmMVxhbnNpXGR oTbyxlhicZFSiQPB5kiFo CYZxTJM4MCR8UvGns1W2M OTdIxSuFBQrJK6peJejIC WnQW1qFTUuS7ueaN3vztx 5UpDcCFUhXqH3VVSexoU7 Twz2ZKJiDWjqu6mtn1TuD YUqBLo1bDlfMyCiAGUbf6 lzcyBcZmNoYXJzZXQwIEF ocIBpK694v5eiu1zthpJj sFW3MUZnGIN4DQjxraMce vR6KObewQObCpK1POqiot KkNPqjdcWavdNjHfs4OOF zS388MJJ0sUyzc3yjACA8 RQNpLGNxNkNkRl0qyMGdH 742SNCsMNTDPNJnoCm4ZJ UtytUrmjJynKKAe761T41 3h1kaJAQykmHukIoTrisx e0xiK923UILrkZMqsmZiC yNvSQWzgCKbaOJ8EHBcVQ 1hcmdsMTgwMFxtYXJncjE 3SDHgdFSoO3KaYFNnZK0u lepyRWO6GHqfSDNkWPO0F cHvAEKnf9Djshb5YqTasj 5uhu79LZU9t1KsdEkoHQG 2MUN5LoVlKa7aiBTzWNKg FX1nVtXoaSWcNXSbaw87w BlxZWxawmNcmI9kXlEiFO GnhTJsYNWcUU9jyPSoDTD ogH7bmpjnSTNnHoXhawrd IQLgjMhemnLgLw6mmKziU XS0JPstM8oioU7uZhO6PJ opW5erdE4cOMm2YYymxYT 1OXZkjW9lTD6pgxdqu1ie UXycVFlfJKHcuwR3fjH0T VTcfPAfO1DucJ7kDSNkEK 8jawvwv9bkQBJ9HJlbOWG pBYS8PqWkQCMyy0Rxarm1 LnXzg0IntEIiJBgjX95fa 543BACwizVkG6ropTFoww uyfTKilntnLXzpeqZ2KVB sXHBsYWluXGYxXGZzMjJc bGFuZzEwMzNcaGljaFxmM NiePuZrMKGdXVqoW7unIm FcZnMyMiBUZWNobmljYWw tY04qhH1uAW90BZMvrSUy rQSvrP5djV0caZB5XPGfi nBgeeekDgAbGIIvy1KgPZ QkHQTbK0gzvzOlVS3aZPD oaG3aFkhkNFBxUHJPnWPr nRRxZYTiLWRAqZV5KBrmd kUsF8znUZJfXYXkTCXIEN qLQiDgJyRvKfF5OMx3UHH nea06f5itbWFjZLXfrUXn UtCbIBGlSABck2dgCFMue GFuZzEwMzNcZnRuYmpcdW IuVIJyHlQkt8mnf493oLZ wi3cmQXIzRaO1pSZbQOXx aPWpN832CABfEKgik7nku 4RpSLTokNNhh8L0JTTCmx clrNg1gQuxL36mg1F1Gix pY6umXFQuRUDvW2SdOB9o AMTnSdh2TBF4GFM3CJHkA DKmL0AiIX7xWXQatIUxUE r7f8oqbOpxUHDhCRG9i6r yTWckraQdTY8iwo1mpYa0 a5zmidXzPVCfSTLlwPJKG BWqZ7LkrRgcDk6hzNi0zH apHwfaJFP5Jhz9DM3cuz5 0bkw8tDluPFZunrhnSnS5 YSekEKAdrxnjWRg2DOxpM OFpiMW0GHVbnDFsZ4CbUK qpEA2yyrl6YPC2TUplREJ fJsC2YBGmwTCaVTJkwAvr XDpun612XXF8CrCbGD9xV 2Hdx5Z7mF8rsEAkEWYqfK PvLvSoWNFvtr2raOMnCKl zk1QkHFT8xnZ1hMPldTXa NMZiNB68Aojvd1XpAkwkx 5SiD31qvLA0DPlqk5qjBF 8qAmM0fwKtXFddi7glqA6 jYzO4JXucST0kUE1jFEYm yL1dlmlqHPKrMeTuiuewI OXmgIlkazXkYt3zkMwuQP L9IHyxG4xvfZ1gZgJ2RSp pH7oznY3hMRj9VUsfyZD4 MPJpuE7cCC0ijdbvq5lkZ YooDYbvCBLteqF1eeKuLS AwcEHuM1IrvQ3qZBKfEI5 wxlhpl0bwSIP6XHpyJRVw ITG5OfKjMKLnj5Cnibj7B qNaf4StcHAtIVuoI24dc7 83YTHzgbHbM2nduXWiisc ioWAqaxodEOylcwP3TWLy XHBsYWluXGYxXGZzMjBcb GFuZzEwMzNcaGljaFxmMV ujRiZgYFCrCLfoQ1fgHwA gXeSsCXRGvZVqzh6fjWcn LTqjxWDfaLWojMY2hY3cO IVyvoAzkb2dCNSbmKZZlP I6YCaawvEaU6rexwhkUWK 9FJGlSRO9Q5ejNLHLxmOz NUUsQMEojXYoZJUNPQO9V OB9EXNpYJAPENHsBUP9SE T4NNVfPJDzsBHoJNAbhdl wYXJkXHBsYWluXGYwXGZz MgUdvTosqZ6uYzIoHfMsR YkpXY9jFEHzB3htqQDqTG FiJHLdE6agKgTnuA3aiDj mMVxjZjJcZnMyMFxsdHJj tTYQKQUdulR2r4I6PHvgs GFpblxmMVxmczIwXGxhbm ajBTKkTIzuY0dwWvVqZTF weKglFZdae3CuJUSmIPUi HmFwPCsjURU7j6W7UMjds RNcayVGMhENON8bnSEhfx blEV7LFrhoeVHwqyhqGRl mczIyXGxhbmcxMDMzXGhp S4zcCqSlQPLhoQxaAIrut 2NoXGYxXGZzMjJccGFyfX 0= [facility] Work Phone: [facility] Work Phone: CNOVon 09-09-2024 CNOV Office Visit (GENSWS ) MARY REYES ([id number]) 1950 F Date Time Provider Department 09/09/24 11:15 AM GAYLE JIMENEZ During your visit today, we recorded the following information about you: Gayle Jimenez MD 09/12/2024 2:09 PM Signed Mary presents for US guided right thyroid nodule FNA. PROCEDURE NOTE: After informed consent was given and patient gives permission for the procedure, the patient was in the supine position with neck in slight extension. Appropriate time out protocol was followed. The ultrasound machine was used for real time imaging. The anterior neck skin was cleansed with a sterile surgical skin preparation. The skin and subcutaneous tissues were infiltrated with 1% xylocaine with epinephrine. The ultrasound transducer probe was brought up to localize the thyroid nodule. The right thyroid nodule was identified with the US transducer. It was about 2.5 cm in maximum dimension A 22 G needle was inserted into the nodule under US guidance. Several passes were made to ensure obtaining enough material. The needle was withdrawn. The specimen was placed in a cytology fixative solution (and also a sample for Afirma testing) and forwarded to pathology. The above was repeated with a new 22 G needle attached to a 10 cc syringe. This was done to ensure adequate sampling. This process was again repeated until adequate sampling was deemed to be achieved. The specimens were then forwarded to pathology. Hemostasis was achieved by pressure. A small bandaid was applied and patient told that could be removed tomorrow. No evidence of bleeding noted. Patient tolerated procedure well. Complications - none EBL - minimal PLAN: Wound care instructions given by clinic staff. Patient to follow up with telehealth visit next week. Patient acknowledges the above. Nahomi Jama LPN 09/12/2024 2:09 PM Signed UNIVERSAL PROTOCOL / SAFETY CHECKLIST Procedure to be Performed: Sign In: A Moment of CARE was completed. Personnel directly involved with the procedure wore the appropriate PPE (Personal Protective Equipment). No special equipment needed. Patient/Surrogate Stated/Verified: PATIENT VERIFIED(optional for EMERGENT procedures): Patient name, Date of , Relevant allergies, and The intended procedure Time Out Communication: Intended patient and procedure match the source documents. Consent documented and matches the intended procedure. Relevant labs, photos, and/or imaging studies have been reviewed. Correct side/site marked and visible. Medications required for procedure verified. No fire risk assessment and interventions applicable. No implant(s) inserted. Sign Out: SIGN OUT (optional for EMERGENT procedures): All specimen containers correctly labeled. All instruments, equipment, possible retained foreign bodies accounted for. Post-procedure follow-up management communicated and Plan of Care Visit completed when applicable. VARUN Fagan Kimberly, LPN 09/09/2024 11:47 AM Addendum The following instructions are important for you related to your office visit today with the [facility]. Instructions After THYROID FINE NEEDLE ASPIRATION Please do not take aspirin or other blood thinners for the next few days. If you have bleeding from the needle site, hold pressure with a clean gauze. If the bleeding continues, contact our office immediately. I recommend taking Advil or Tylenol for the discomfort. An ice pack may improve your discomfort to the area. Contact our office immediately if you have any questions or concerns @ [phone]. Please make an appointment to follow up in one week with your physician and [facility] If you note any additional difficulties, questions, or concerns, you should contact our office immediately @ [phone] and ask to be transferred to the General Surgery department. Allergies As of Date: 09/09/2024 Noted Allergy Reaction VICODIN (HYDROCODONE-ACETAMIN OPHE*03/25/2011 2 - Rash VIOXX (ROFECOXIB) 03/18/2005 8 - GI Upset Date Reviewed: 09/09/2024 Reviewed by: Nahomi Jama LPN - Fully Assessed Reason for Visit: Procedure [88] Primary Visit Diagnosis:Abnormal ultrasound of thyroid gland [R93.89] Order(s):US THYROID BIOPSY RIGHT (POC) SURG USE ONLY [[id number]] Order #: [id number]. #:[id number]: 1 CYTOLOGY NON-OPERATIONS INTELLIGENCE [[id number]] Order #: [id number]. #:[id number] Prescriptions as of 09/12/2024 - cholecalciferol, vitamin D3, (D3-2000 ORAL) Take by mouth. - cyanocobalamin (VITAMIN B-12) 1,000 mcg tab Take 1,000 mcg by mouth once daily. - triamcinolone acetonide (KENALOG) 0.5 % cream Apply to affected area three times a day. - vit A,C,L-Wxhr-Hjwtkx (PRESERVISION AREDS) 2,148 mcg-113 mg-45 mg-17.4mg tab Take 1 tablet by mouth (more content not included)... Normal [facility] CYTOLOGY NON-GYNon 5 CASE REPORT Normal [facility] Comment on above: Order Comment: Speci men Type: SPECIMEN OBTAINED BY ASPIRATIONOrdering Facility: [facility] Address: [address] [place] [address] Result Comment: [facility] Cytology Report Case: [id number] Authorizing Provider: Gayle Jimenez MD Collected: 09/09/2024 11:49 AM Ordering Location: General Surgery Received: 09/09/2024 04:58 PM Pathologist: Matilde Lacy MD Specimen: Thyroid, Right, Lobe Performed By: #### C YTONON ####[facility] LABCLIA [id number] [place] [address] [place] CLINICAL HISTORY Thyroid Nodule Normal [facility] Comment on above: Order Comment: Speci men Type: SPECIMEN OBTAINED BY ASPIRATIONOrdering Facility: [facility] Address: [address] [place] [address] Result Comment: Afirma received Performed By: #### C YTONON ####[facility] LABCLIA [id number] [place] [address] [place] FINAL DIAGNOSIS Normal [facility] Comment on above: Order Comment: Speci men Type: SPECIMEN OBTAINED BY ASPIRATIONOrdering Facility: [facility] Address: [address] [place] [address] Result Comment: A - Thyroid, right lobe, FNA Benign. Benign follicular cells and colloid. The following cell blocks were associated with this case: A1 Cell Block, Alcohol Fixed at 1146 EST Performed By: #### C YTONON ####[facility] LABCLIA [id number] STATES OF [facility] FINAL PERFORMING LAB Normal [facility] Comment on above: Order Comment: Speci men Type: SPECIMEN OBTAINED BY ASPIRATIONOrdering Facility: [facility] Address: [address] [place] [address] Result Comment: Tech nical component, national insurance officer screening performed at [facility], [address] [place] [address] CLIA# [id number] Diagnostic interpretation performed at [facility], [address] [place], [place] [id number] CLIA# [id number] [employer] Operator: Heber Henson M.D. Performed By: #### C YTONON ####[facility] LABIA [id number] [place] [address] [place] GROSS DESCRIPTION Normal [facility] Comment on above: Order Comment: Speci men Type: SPECIMEN OBTAINED BY ASPIRATIONOrdering Facility: [facility] Address: [address] [place] [address] Result Comment: A. T hyroid, Right, Lobe 30 cc clear pink CytoLyt with particles. ThinPrep and Cell Block prepared. Afirma received Performed By: #### C YTONON ####[facility] LABCLIA [id number] [address] [place] US THYROID BIOPSY RIGHT (POC ) SURG USE ONLYon 09-09-2024 [facility] CNOVon 09-02-2024 CNOV Office Visit (GENSWS ) MARY REYES ([id number]) 1950 F Date Time Provider Department 09/02/24 11:00 AM GAYLE JIMENEZ During your visit today, we recorded the following information about you: Pulse Blood pressure Weight 63/minute 133/82 115.7 kg Gayle Jimenez MD 09/03/2024 2:13 PM Signed Mary Reyes 1950 REFERRING PHYSICIAN: Jon Plasencia APRN* CHIEF COMPLAINT: Consult and Thyroid Nodule HPI: The patient is a 74 year old female presents with abnormal ultrasound of thyroid She denies globus symptoms. She denies new onset hoarseness. She denies swallowing problems She denies exposure to unusual radiation. She denies taking thyroid hormones. She notes no thyroid cancer in family. US 08/26/2024 - nodule - Mid right; size: 2.8 x 1.8 x 2 cm - FNA is advised PAST MEDICAL HISTORY Diagnosis Date Arthritis left knee, back Chronic kidney disease, stage 3a (HCC) 05/26/2023 Complication of anesthesia N/V DDD (degenerative disc disease), lumbar Diulus, Cole Diverticulosis of colon (without mention of hemorrhage) 05/27 Diverticulosis Head injury 1971 left hand numbness, decrease coordination on right (dominant) IFG (impaired fasting glucose) 03/2017 a1c 5.8% Insomnia, unspecified improved Mild atherosclerosis of carotid artery 2016 internal, 0-19% Papanicolaou smear of cervix with atypical squamous cells of undetermined significance (ASC-US) 2009 ASCUS HPV negative, Dr Whiteside Snoring Tremor left hand Unspecified essential hypertension borderline PAST SURGICAL HISTORY Procedure Laterality Date ARTHROSCOPY KNEE DIAGNOSTIC W/WO SYNOVIAL BX SPX 03/25/2003 Arthroscopy, knee LEFT ARTHRP ACETBLR/PROX FEM PROSTC AGRFT/ALGRFT Left 03/27/[address] [place], [facility] ARTHRP KNE CONDYLEANDPLATU MEDIALANDLAT COMPARTMENTS 10/04/10 Knee replacement, total Knee ARTHRP KNE CONDYLEANDPLATU MEDIALANDLAT COMPARTMENTS Right 10/01/2018 Dr. Mata, [facility] COLONOSCOPY FLX DX W/COLLJ SPEC WHEN PFRMD 06/02/04 Repeat in COLONOSCOPY FLX DX W/COLLJ SPEC WHEN PFRMD 06/23/14 no polyps EYE SURGERY HX 06/27/14 left laeral rectus recession-strabismus F SI JOINT INJECTION 02/02/12 LIG/TRNSXJ FLP TUBE ABDL/VAG APPR UNI/BI 1982 Tubal ligation NEUROPLASTY AND/TRANSPOS MEDIAN NRV CARPAL TUNNE 09/2000 Carpal tunnel decomp LEFT PAST SURGICAL HISTORY OF 1988 LEFT EYE, strabismus repair after injury PAST SURGICAL HISTORY OF 1970 skull fracture (ice skating) Current Outpatient Medications Medication Sig cholecalciferol, vitamin D3, (D3-2000 ORAL) Take by mouth. cyanocobalamin (VITAMIN B-12) 1,000 mcg tab Take 1,000 mcg by mouth once daily. triamcinolone acetonide (KENALOG) 0.5 % cream Apply to affected area three times a day. vit A,C,O-Caqv-Bhtmns (PRESERVISION AREDS) 2,148 mcg-113 mg-45 mg-17.4mg tab Take 1 tablet by mouth daily with breakfast. metoprolol succinate ER (TOPROL XL) 50 mg 24 hr tablet Take 1 tablet by mouth once daily. metroNIDAZOLE (METROGEL) 0.75 % Topical Gel Apply to affected area twice daily. acetaminophen (TYLENOL EXTRA STRENGTH) 500 mg tablet Take 1,000 mg by mouth every 8 hours as needed. aspirin, enteric coated (ASPIRIN, ENTERIC COATED) 81 mg EC tablet Take 81 mg by mouth once daily. No current facility-administered medications for this visit. ALLERGIES: Vicodin [Hydrocodone-Acetamin ophen] and Vioxx [Rofecoxib] PERSONAL HISTORY: Social History Tobacco Use Smoking status: Never Smokeless tobacco: Never Vaping Use Vaping status: Never Used Substance Use Topics Alcohol use: Yes Comment: 6 per year Drug use: No FAMILY HISTORY Problem Relation Age of Onset Heart Mother atrial fibrilation/diverticu litis/osteoporosis Stroke Father Breast Cancer Maternal Grandmother Stroke Maternal Grandmother Stroke Paternal Grandfather Heart Brother REVIEW OF SYSTEMS: General: The patient denies fatigue, denies weight loss, denies weight gain, denies feeling hot, and denies feelings of cold. Eyes: The patient denies glaucoma, NOTES eye injury/surgery, wears glasses or contacts. Ear/Nose/Throat: The patient denies allergies, denies hayfever, denies ear infections, and denies bloody noses. Cardiovascular: The patient denies chest pain, denies heart disease, denies high blood pressure,denies cardiac stent, denies prior heart attack, denies irregular heart beat, denies high cholesterol, denies poor circulation, denies heart failure, other cardiac issues, denies claudication, denies cold feet, denies peripheral arterial stent. Respiratory: The patient denies tuberculosis, denies pneumonia, denies frequent cough, denies pulmonary embolism, denies shortness of breath, and denies coughing up blood. Gastrointestinal: The patient NOTES difficulty swallowing, denies acid reflux, denies ulcers, denies vomi (more content not included)... Normal [facility] 09-02-2024 [facility]ARY [facility] ([id number]) 1950 F Date Time Provider Department 09/02/24 PETE MOREJON [facility] During your visit today, we recorded the following information about you: Gayle Sousa LPN 09/02/2024 12:09 PM Signed I received a message today at 11:55 concerning videos to watch about my condition. However the videos are about a colonoscopy I had done 08/09/2024. Luna Bruce APRN.WOLF HUNTER 09/02/2024 1:45 PM Signed Just ignore those. We recently had a program update and I wonder if there are some glitches. Thank you, Luna Bruce APRN.Zulma Elliott LPN 09/02/2024 2:39 PM Signed Patient notified of update, verbalizes understanding of instructions. Zulma Gonzalez LPN Allergies As of Date: 09/02/2024 Noted Allergy Reaction VICODIN (HYDROCODONE-ACETAMIN OPHE*03/25/2011 2 - Rash VIOXX (ROFECOXIB) 03/18/2005 8 - GI Upset Date Reviewed: 09/02/2024 Reviewed by: Gabi Rowan MA - Fully Assessed Prescriptions as of 09/02/2024 - cholecalciferol, vitamin D3, (D3-2000 ORAL) Take by mouth. - cyanocobalamin (VITAMIN B-12) 1,000 mcg tab Take 1,000 mcg by mouth once daily. - triamcinolone acetonide (KENALOG) 0.5 % cream Apply to affected area three times a day. - vit A,C,C-Qjew-Jjicbb (PRESERVISION AREDS) 2,148 mcg-113 mg-45 mg-17.4mg tab Take 1 tablet by mouth daily with breakfast. - metoprolol succinate ER (TOPROL XL) 50 mg 24 hr tablet Take 1 tablet by mouth once daily. - metroNIDAZOLE (METROGEL) 0.75 % Topical Gel Apply to affected area twice daily. - acetaminophen (TYLENOL EXTRA STRENGTH) 500 mg tablet Take 1,000 mg by mouth every 8 hours as needed. - aspirin, enteric coated (ASPIRIN, ENTERIC COATED) 81 mg EC tablet Take 81 mg by mouth once daily. 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] 01/27/2006 SYMPTOMATIC FEMALE CLIMACTERIC STATE [N95.1] 08/12/2008 ATROPHIC VAGINITIS [N95.2] 08/12/2008 Screening for colon cancer [Z12.11] 08/12/2008 Cystocele, midline [N81.11] 08/12/2008 04/19/2011 Urgency of Urination [R39.15] 08/19/2009 Urticaria [L50.9] 03/10/2010 Rectocele [N81.6] 04/19/2011 Postmenopausal bleeding [N95.0] 04/19/2011 04/25/2012 ASCUS favor benign [R87.610] 04/19/2011 Chronic SI joint pain [M53.3, G89.29] 12/06/2011 SI (sacroiliac) joint dysfunction [M53.3] 12/06/2011 Lumbar spondylosis [M47.816] 12/06/2011 DDD (degenerative disc disease), lumbar [M51.36*12/06/2011 Lumbar radicular pain [M54.16] 12/06/2011 Lumbar facet arthropathy [M47.816] 12/06/2011 Essential hypertension [I10] Cystocele, midline [N81.11] 04/25/2012 Tremor [R25.1] Low serum HDL [R74.8] 04/19/2017 Impaired fasting glucose [R73.01] 04/19/2017 IFG (impaired fasting glucose) [R73.01] 03/24/2017 Arthritis of right knee [M17.11] 04/23/2018 Abnormal EKG [R94.31] 04/23/2018 Dyslipidemia [E78.5] 04/23/2018 Hypertension, essential [I10] 04/23/2018 LVH (left ventricular hypertrophy) [I51.7] 04/28/2021 Hyperlipidemia, mixed [E78.2] 04/28/2021 Hypoalbuminemia [E88.09] 04/28/2021 Other specified disorders of bone density and s*03/30/2022 Vitamin D deficiency [E55.9] 03/30/2022 Chronic kidney disease, stage 3a (HCC) [N18.31] 05/26/2023 Left hand paresthesia [R20.2] 05/26/2023 Acute pain of left shoulder [M25.512] 05/26/2023 Neck pain on left side [M54.2] 05/26/2023 Fatigue [R53.83] 05/26/2023 Localized swelling, mass and lump, neck [R22.1] 05/26/2023 Vitamin B12 deficiency [E53.8] 05/26/2023 DDD (degenerative disc disease), cervical [M50.*07/30/2024 SOB (shortness of breath) [R06.02] 07/30/2024 Encounter Status:Closed by ZULMA GONZALEZ on 09/02/24 Normal [facility] Bettye 08-30-2024 CNPN Telephone (FAMPWS) MARY REYES ([id number]) 1950 F Date Time Provider Department 08/30/24 PETE MOREJON FAMPWS During your visit today, we recorded the following information about you: Allergies As of Date: 08/30/2024 Noted Allergy Reaction VICODIN (HYDROCODONE-ACETAMIN OPHE*03/25/2011 2 - Rash VIOXX (ROFECOXIB) 03/18/2005 8 - GI Upset Date Reviewed: 08/09/2024 Reviewed by: Jeimy Aquino, ROCKY - Fully Assessed Prescriptions as of 10/11/2024 - metoprolol succinate ER (TOPROL XL) 50 mg 24 hr tablet Take 1 tablet by mouth once daily. - cholecalciferol, vitamin D3, (D3-2000 ORAL) Take by mouth. - cyanocobalamin (VITAMIN B-12) 1,000 mcg tab Take 1,000 mcg by mouth once daily. - triamcinolone acetonide (KENALOG) 0.5 % cream Apply to affected area three times a day. - vit A,C,S-Nlja-Wmborj (PRESERVISION AREDS) 2,148 mcg-113 mg-45 mg-17.4mg tab Take 1 tablet by mouth daily with breakfast. - metroNIDAZOLE (METROGEL) 0.75 % Topical Gel Apply to affected area twice daily. - acetaminophen (TYLENOL EXTRA STRENGTH) 500 mg tablet Take 1,000 mg by mouth every 8 hours as needed. - aspirin, enteric coated (ASPIRIN, ENTERIC COATED) 81 mg EC tablet Take 81 mg by mouth once daily. 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] 01/27/2006 SYMPTOMATIC FEMALE CLIMACTERIC STATE [N95.1] 08/12/2008 ATROPHIC VAGINITIS [N95.2] 08/12/2008 Screening for colon cancer [Z12.11] 08/12/2008 Cystocele, midline [N81.11] 08/12/2008 04/19/2011 Urgency of Urination [R39.15] 08/19/2009 Urticaria [L50.9] 03/10/2010 Rectocele [N81.6] 04/19/2011 Postmenopausal bleeding [N95.0] 04/19/2011 04/25/2012 ASCUS favor benign [R87.610] 04/19/2011 Chronic SI joint pain [M53.3, G89.29] 12/06/2011 SI (sacroiliac) joint dysfunction [M53.3] 12/06/2011 Lumbar spondylosis [M47.816] 12/06/2011 DDD (degenerative disc disease), lumbar [M51.36*12/06/2011 Lumbar radicular pain [M54.16] 12/06/2011 Lumbar facet arthropathy [M47.816] 12/06/2011 Essential hypertension [I10] Cystocele, midline [N81.11] 04/25/2012 Tremor [R25.1] Low serum HDL [R74.8] 04/19/2017 Impaired fasting glucose [R73.01] 04/19/2017 IFG (impaired fasting glucose) [R73.01] 03/24/2017 Arthritis of right knee [M17.11] 04/23/2018 Abnormal EKG [R94.31] 04/23/2018 Dyslipidemia [E78.5] 04/23/2018 Hypertension, essential [I10] 04/23/2018 LVH (left ventricular hypertrophy) [I51.7] 04/28/2021 Hyperlipidemia, mixed [E78.2] 04/28/2021 Hypoalbuminemia [E88.09] 04/28/2021 Other specified disorders of bone density and s*03/30/2022 Vitamin D deficiency [E55.9] 03/30/2022 Chronic kidney disease, stage 3a (HCC) [N18.31] 05/26/2023 Left hand paresthesia [R20.2] 05/26/2023 Acute pain of left shoulder [M25.512] 05/26/2023 Neck pain on left side [M54.2] 05/26/2023 Fatigue [R53.83] 05/26/2023 Localized swelling, mass and lump, neck [R22.1] 05/26/2023 Vitamin B12 deficiency [E53.8] 05/26/2023 DDD (degenerative disc disease), cervical [M50.*07/30/2024 SOB (shortness of breath) [R06.02] 07/30/2024 Encounter Status:Closed by JON PLASENCIA on 10/11/24 [facility] Bettey 08-28-2024 JOYCEN Telephone (AUTUMN) MARY REYES ([id number]) 1950 F Date Time Provider Department 08/28/24 JON PLASENCIA During your visit today, we recorded the following information about you: Jon Plasencia APRN.CNP 08/28/2024 12:34 PM Signed Please let her know that she has thyroid nodules and radiology is recommending she have a fine needle biopsy. Please assist her to schedule for this. Jon Plasencia APRN.Gayle Benavidez LPN 08/28/2024 3:03 PM Signed Left message to return call. Suze Lyon RN 08/29/2024 12:00 PM Signed Patient calls and notified of results and providers instructions. Patient verbalizes understanding. Transferred to schedule consult to general surgery. Suze Lyon RN Allergies As of Date: 08/28/2024 Noted Allergy Reaction VICODIN (HYDROCODONE-ACETAMIN OPHE*03/25/2011 2 - Rash VIOXX (ROFECOXIB) 03/18/2005 8 - GI Upset Date Reviewed: 08/09/2024 Reviewed by: Jeimy Aquino RN - Fully Assessed Primary Visit Diagnosis:Thyroid nodule [E04.1] Order(s):CONSULT TO GENERAL SURGERY [5771] Order #: [id number]: 1 FUTURE Prescriptions as of 08/29/2024 - cholecalciferol, vitamin D3, (D3-2000 ORAL) Take by mouth. - cyanocobalamin (VITAMIN B-12) 1,000 mcg tab Take 1,000 mcg by mouth once daily. - triamcinolone acetonide (KENALOG) 0.5 % cream Apply to affected area three times a day. - vit A,C,D-Vizr-Dzoqvf (PRESERVISION AREDS) 2,148 mcg-113 mg-45 mg-17.4mg tab Take 1 tablet by mouth daily with breakfast. - metoprolol succinate ER (TOPROL XL) 50 mg 24 hr tablet Take 1 tablet by mouth once daily. - metroNIDAZOLE (METROGEL) 0.75 % Topical Gel Apply to affected area twice daily. - acetaminophen (TYLENOL EXTRA STRENGTH) 500 mg tablet Take 1,000 mg by mouth every 8 hours as needed. - aspirin, enteric coated (ASPIRIN, ENTERIC COATED) 81 mg EC tablet Take 81 mg by mouth once daily. 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] 01/27/2006 SYMPTOMATIC FEMALE CLIMACTERIC STATE [N95.1] 08/12/2008 ATROPHIC VAGINITIS [N95.2] 08/12/2008 Screening for colon cancer [Z12.11] 08/12/2008 Cystocele, midline [N81.11] 08/12/2008 04/19/2011 Urgency of Urination [R39.15] 08/19/2009 Urticaria [L50.9] 03/10/2010 Rectocele [N81.6] 04/19/2011 Postmenopausal bleeding [N95.0] 04/19/2011 04/25/2012 ASCUS favor benign [R87.610] 04/19/2011 Chronic SI joint pain [M53.3, G89.29] 12/06/2011 SI (sacroiliac) joint dysfunction [M53.3] 12/06/2011 Lumbar spondylosis [M47.816] 12/06/2011 DDD (degenerative disc disease), lumbar [M51.36*12/06/2011 Lumbar radicular pain [M54.16] 12/06/2011 Lumbar facet arthropathy [M47.816] 12/06/2011 Essential hypertension [I10] Cystocele, midline [N81.11] 04/25/2012 Tremor [R25.1] Low serum HDL [R74.8] 04/19/2017 Impaired fasting glucose [R73.01] 04/19/2017 IFG (impaired fasting glucose) [R73.01] 03/24/2017 Arthritis of right knee [M17.11] 04/23/2018 Abnormal EKG [R94.31] 04/23/2018 Dyslipidemia [E78.5] 04/23/2018 Hypertension, essential [I10] 04/23/2018 LVH (left ventricular hypertrophy) [I51.7] 04/28/2021 Hyperlipidemia, mixed [E78.2] 04/28/2021 Hypoalbuminemia [E88.09] 04/28/2021 Other specified disorders of bone density and s*03/30/2022 Vitamin D deficiency [E55.9] 03/30/2022 Chronic kidney disease, stage 3a (HCC) [N18.31] 05/26/2023 Left hand paresthesia [R20.2] 05/26/2023 Acute pain of left shoulder [M25.512] 05/26/2023 Neck pain on left side [M54.2] 05/26/2023 Fatigue [R53.83] 05/26/2023 Localized swelling, mass and lump, neck [R22.1] 05/26/2023 Vitamin B12 deficiency [E53.8] 05/26/2023 DDD (degenerative disc disease), cervical [M50.*07/30/2024 SOB (shortness of breath) [R06.02] 07/30/2024 Encounter Status:Closed by SUZE LYON on 08/29/24 Normal [facility] IMMUNOFIXATION SCREEN, SERUM Ordered By: Misael Newsome on 08-28-2024 MPA Result No M protein is identified. No M protein is identified. [facility] Staff Review (MPA) Reviewed by Dr. Neida Francis MD [facility] MONOCLONAL PROT UR W/INTERPo n 08-28-2024 Result ([facility]) No M protein is identified. No M protein is identified. [facility] Staff Review ([facility]) Reviewed by Dr. Neida Francis MD [facility] KAPPA/ARTHUR,FREE,SEROrdered B y: Mar Barrientos on 08-27-2024 Immunoglobulin light chains.kappa.free (S) [Mass/Vol] 34.9 mg/L High 3.3 - 19.4 mg/L [facility] Comment on above: Rarely, increased se rum free light chains levels may not be detected or accurately quantified due to prozone phenomenon or in high viscosity samples using this immunoturbidimetric assay. Correlation with other laboratory results and clinical findings is recommended. The [place] Free Light Chain was performed using the Binding Site Optilite immunoturbidimetric method. Result obtained with different assay methods or kits cannot be used interchangeably. Immunoglobulin light chains.kappa/Immunoglobu ana light chains.lambda (S) [Mass ratio] 1.14 0.26 - 1.65 [facility] Immunoglobulin light chains.lambda.free [Mass/Vol] 30.6 mg/L High 5.7 - 26.3 mg/L [facility] Comment on above: Rarely, increased se rum free light chains levels may not be detected or accurately quantified due to prozone phenomenon or in high viscosity samples using this immunoturbidimetric assay. Correlation with other laboratory results and clinical findings is recommended. The [place] Free Light Chain was performed using the Binding Site Optilite immunoturbidimetric method. Result obtained with different assay methods or kits cannot be used interchangeably. Interpretation and review of laboratory results Abnormal [facility] PROTEIN / CREATININE RATIOon 08-27-2024 Protein/Creatinine (U) [Mass ratio] 0.09 mg/mg [facility] 0.15 mg/mg [facility] Comment on above: Adult Proteinuria Ca tegories: <0.15 mg/mg is considered normal to mildly increased 0.15 - 0.50 mg/mg is considered moderately increased >0.50 mg/mg is considered severely increased KDIGO. (2013). KDIGO 2012 Clinical Practice Guideline for the Evaluation and Management of Chronic Kidney Disease. Official Journal of the International Society of Nephrology, 3(1), 1-150. Protein/Creatinine (U) [Mass ratio]on 08-27-2024 Creatinine (U) [Mass/Vol] 227.0 mg/dL 20.0 - 300.0 mg/dL [facility] Interpretation and review of laboratory results Abnormal [facility] Protein (U) [Mass/Vol] 21 mg/dL High 0 - 2 0 mg/dL [facility] US Thyroid glandOrdered By: Ccf Provider on 08-27-2024 Interpretation and review of laboratory results Abnormal [facility] Radiology Result ACTIONABLE Abnormal [facility] Comment on above: This report contains an incidental or actionable finding. This finding may be a new finding separate from the reason your provider ordered the imaging test or it may be an already known finding that needs additional or continued follow-up. Because of this incidental or actionable finding, you may need another test (imaging or a different type of test). Please contact your provider for the next steps. [facility] US Thyroid glandon IMPRESSION: Thyroid nodule(s) is/are present. Fine needle aspiration is recommended if not previously performed. . TI-RADS Category: TR5 ACR Recommendation: TI-RADS 5 nodule. FNA is advised. ACR recommendations are strictly based on the size and imaging appearance at the time of the exam and do not consider stability or previous biopsy results. ACTIONABLE RESULT: FOLLOW-UP Acuity: Actionable Findings: Endocrine (thyroid) Routing Code: EMI_1 Recommendation: Unlisted Recommendation (see report) Time Frame: At the discretion of the clinical team. COMMUNICATION: Results will be communicated with the ordering provider via [employer] staff message or phone message by [employer] [facility] within 2 business days of report finalization. --END OF FINDING-- Colorectal Surgeon: PSCB Transcribe Date/Time: Aug 27 2024 2:25P Dictated by : MO HO MD This examination was interpreted and the report reviewed and electronically signed by: MO HO MD on Aug 27 2024 3:16PM [facility] DIVISION OF RADIOLOGY * * *Final Report* * * DATE OF EXAM: Aug 26 2024 11:48AM U 1048 - US THYROID/PARATHYROID / PROCEDURE REASON: Thyroid nodule * * * * Physician Interpretation * * * * EXAMINATION: THYROID ULTRASOUND CLINICAL HISTORY: Thyroid nodule TECHNIQUE: Sonography and Doppler imaging of the thyroid was performed. Images were obtained and stored in a permanent archive. MQ: UST_1 COMPARISON: CT chest 08/15/2024 RESULT: Right Lobe: 4.4 cm x 2.3 cm x 2.0 cm; homogeneous echogenicity, expected vascular flow. Left Lobe: 4.5 cm x 0.8 cm x 1.9 cm; homogeneous echogenicity, expected vascular flow. Isthmus: 0.2 cm The most suspicious thyroid nodule(s) (up to four) as below: NODULE 1: Location: Upper pole right Size: 0.7 x 0.7 x 0.5 cm Characteristics: Composition: Solid or almost completely solid, 2 points Echogenicity: Hypoechoic, 2 points Shape: Pxpcb-cbcs-nhny, 0 points Margin: Smooth, 0 points Echogenic foci (add points for all that apply): None, 0 points Internal vascularity: absent Interval growth: No significant growth given differences in technique TI-RADS Category: TR4 ACR Recommendation: TI-RADS 4 nodule. No FNA or follow-up imaging is advised. NODULE 2: Location: Mid right Size: 2.8 x 1.8 x 2 cm Characteristics: Composition: Solid or almost completely solid, 2 points Echogenicity: Hypoechoic, 2 points Shape: Zlqreu-lspt-dksa, 3 points Margin: Smooth, 0 points Echogenic foci (add points for all that apply): None, 0 points Internal vascularity: present Interval growth: No prior available for comparison TI-RADS Category: TR5 ACR Recommendation: TI-RADS 5 nodule. FNA is advised. NODULE 3: Location: Mid left Size: 0.8 x 0.7 x 0.7 cm Characteristics: Composition: Solid or almost completely solid, 2 points Echogenicity: Hypoechoic, 2 points Shape: Qdjni-tgrd-hqon, 0 points Margin: Smooth, 0 points Echogenic foci (add points for all that apply): None, 0 points Internal vascularity: absent Interval growth: No prior available for comparison TI-RADS Category: TR4 ACR Recommendation: TI-RADS 4 nodule. No FNA or follow-up imaging is advised. DIVISION [facility] RAD[facility]OLOGY [facility] * * *Final Report* * * DATE OF EXAM: Aug 26 2024 11:48AM [facility] 1048 - US THYROID/PARATHYROID / PROCEDURE REASON: Thyroid nodule * * * * Physician Interpretation * * * * EXAMINATION: THYROID ULTRASOUND CLINICAL HISTORY: Thyroid nodule TECHNIQUE: Sonography and Doppler imaging of the thyroid was performed. Images were obtained and stored in a permanent archive. MQ: UST_1 COMPARISON: CT chest 08/15/2024 RESULT: Right Lobe: 4.4 cm x 2.3 cm x 2.0 cm; homogeneous echogenicity, expected vascular flow. Left Lobe: 4.5 cm x 0.8 cm x 1.9 cm; homogeneous echogenicity, expected vascular flow. Isthmus: 0.2 cm The most suspicious thyroid nodule(s) (up to four) as below: NODULE 1: Location: Upper pole right Size: 0.7 x 0.7 x 0.5 cm Characteristics: Composition: Solid or almost completely solid, 2 points Echogenicity: Hypoechoic, 2 points Shape: Orrxm-bhap-fdoh, 0 points Margin: Smooth, 0 points Echogenic foci (add points for all that apply): None, 0 points Internal vascularity: absent Interval growth: No significant growth given differences in technique TI-RADS Category: TR4 ACR Recommendation: TI-RADS 4 nodule. No FNA or follow-up imaging is advised. NODULE 2: Location: Mid right Size: 2.8 x 1.8 x 2 cm Characteristics: Composition: Solid or almost completely solid, 2 points Echogenicity: Hypoechoic, 2 points Shape: Gmdxih-eruo-pfok, 3 points Margin: Smooth, 0 points Echogenic foci (add points for all that apply): None, 0 points Internal vascularity: present Interval growth: No prior available for comparison TI-RADS Category: TR5 ACR Recommendation: TI-RADS 5 nodule. FNA is advised. NODULE 3: Location: Mid left Size: 0.8 x 0.7 x 0.7 cm Characteristics: Composition: Solid or almost completely solid, 2 points Echogenicity: Hypoechoic, 2 points Shape: Nnyea-yxkw-nhfq, 0 points Margin: Smooth, 0 points Echogenic foci (add points for all that apply): None, 0 points Internal vascularity: absent Interval growth: No prior available for comparison TI-RADS Category: TR4 ACR Recommendation: TI-RADS 4 nodule. No FNA or follow-up imaging is advised. IMPRESSION IMPRESSION: Thyroid nodule(s) is/are present. Fine needle aspiration is recommended if not previously performed. . TI-RADS Category: TR5 ACR Recommendation: TI-RADS 5 nodule. FNA is advised. ACR recommendations are strictly based on the size and imaging appearance at the time of the exam and do not consider stability or previous biopsy results. ACTIONABLE RESULT: FOLLOW-UP Acuity: Actionable Findings: Endocrine (thyroid) Routing Code: EMI_1 Recommendation: Unlisted Recommendation (see report) Time Frame: At the discretion of the clinical team. COMMUNICATION: Results will be communicated with the ordering provider via [employer] staff message or phone message by [facility] within 2 business days of report finalization. --END OF FINDING-- Colorectal Surgeon: REVA Transcribe Date/Time: Aug 27 2024 2:25P Dictated by : MO HO MD This examination was interpreted and the report reviewed and electronically signed by: MO HO MD on Aug 27 2024 3:16PM EST [facility] IMMUNOFIXATION SCREEN, SERUM on 08-26-2024 MPA RESULT No M protein is identified. Normal No M protein is identified. [facility] Comment on above: Order Comment: Speci men Type: BLOOD SPECIMENOrdering Facility: [facility] Address: [address] [place] [address] Performed By: #### I FES ####[facility] LABIA [id number] [place] [address] [place] STAFF REVIEW (MPA) Reviewed by Dr. Neida Francis MD Normal [facility] Comment on above: Order Comment: Speci men Type: BLOOD SPECIMENOrdering Facility: [facility] Address: [address] [place] [address] Performed By: #### I FESC ####[facility] LABIA [id number] [place] [address] [place] KAPPA/ARTHUR,FREE,SERon 2024 Immunoglobulin light chains.kappa.free (S) [Mass/Vol] 34.9 mg/L High 3.3-19.4 [facility] Comment on above: Order Comment: Speci men Type: BLOOD SPECIMENOrdering Facility: [facility] Address: [address] [place] [address] Result Comment: Rare ly, increased serum free light chains levels may not be detected or accurately quantified due to prozone phenomenon or in high viscosity samples using this immunoturbidimetric assay. Correlation with other laboratory results and clinical findings is recommended. The [place] Free Light Chain was performed using the Binding Site Optilite immunoturbidimetric method. Result obtained with different assay methods or kits cannot be used interchangeably. Performed By: #### K LFRS ####[facility] LABCLIA [id number] [place] [address] [place] Immunoglobulin light chains.kappa/Immunoglobu ana light chains.lambda (S) [Mass ratio] 1.14 Normal 0.26-1.65 [facility] Comment on above: Order Comment: Speci men Type: BLOOD SPECIMENOrdering Facility: [facility] Address: [address] [place] [address] Performed By: #### K LFRS ####[facility] LABCLIA [id number] [place] [address] [place] Immunoglobulin light chains.lambda.free [Mass/Vol] 30.6 mg/L High 5.7-26.3 [facility] Comment on above: Order Comment: Speci men Type: BLOOD SPECIMENOrdering Facility: [facility] Address: [address] [place] [address] Result Comment: Rare ly, increased serum free light chains levels may not be detected or accurately quantified due to prozone phenomenon or in high viscosity samples using this immunoturbidimetric assay. Correlation with other laboratory results and clinical findings is recommended. The Lambda Free Light Chain was performed using the Binding Site Optilite immunoturbidimetric method. Result obtained with different assay methods or kits cannot be used interchangeably. Performed By: #### K LFRS ####[facility] LABCLIA [id number] [place] [address] [place] MONOCLONAL PROT UR W/INTERPo n 08-26-2024 STAFF REVIEW (UMPA) Reviewed by Dr. Neida Francis MD Normal [facility] Comment on above: Order Comment: Speci men Type: URINE SPECIMENOrdering Facility: [facility] Address: [address] [place] [address] Performed By: #### U RMPA ####[facility] LABIA [id number] [address] STATES OF [facility] UMPA RESULT No M protein is identified. Normal No M protein is identified. [facility] Comment on above: Order Comment: Speci men Type: URINE SPECIMENOrdering Facility: [facility] Address: [address] [place] [address] Performed By: #### U RMPA ####[facility] LABIA [id number] [address] [place] [facility] Prot/Creat Uron 08-26-2024 Protein/Creatinine (U) [Mass ratio] 0.09 mg/mg Normal <0.15 [facility] Comment on above: Order Comment: Speci men Type: URINE SPECIMENOrdering Facility: [facility] Address: [address] [place] [address] Result Comment: Adul t Proteinuria Categories: <0.15 mg/mg is considered normal to mildly increased 0.15 - 0.50 mg/mg is considered moderately increased >0.50 mg/mg is considered severely increased KDIGO. (2013). KDIGO 2012 Clinical Practice Guideline for the Evaluation and Management of Chronic Kidney Disease. Official Journal of the International Society of Nephrology, 3(1), 1-150. Performed By: #### 2 890-2 ####[facility] LABIA [id number] [address] [place] Protein/Creatinine (U) [Mass ratio]on 08-26-2024 Creatinine (U) [Mass/Vol] 227.0 mg/dL Normal 20.0-300.0 [facility] Comment on above: Order Comment: Speci men Type: URINE SPECIMENOrdering Facility: [facility] Address: [address] [id number] Performed By: #### 2 890-2 ####[facility] LABIA [id number] [place] [id number] [place] Protein (U) [Mass/Vol] 21 mg/dL High 0-20 Cl [facility] Comment on above: Order Comment: Speci men Type: URINE SPECIMENOrdering Facility: [facility] Address: [address] [id number] Performed By: #### 2 890-2 ####[facility] LABIA [id number] [place] [id number] [place] US THYROID/PARATHYROIDon US THYROID/PARATHYROID * * *Final Report * * * DATE OF EXAM: Aug 26 2024 11:48AM U 1048 - US THYROID/PARATHYROID / PROCEDURE REASON: Thyroid nodule * * * * Physician Interpretation * * * * EXAMINATION: THYROID ULTRASOUND CLINICAL HISTORY: Thyroid nodule TECHNIQUE: Sonography and Doppler imaging of the thyroid was performed. Images were obtained and stored in a permanent archive. MQ: UST_1 COMPARISON: CT chest 08/15/2024 RESULT: Right Lobe: 4.4 cm x 2.3 cm x 2.0 cm; homogeneous echogenicity, expected vascular flow. Left Lobe: 4.5 cm x 0.8 cm x 1.9 cm; homogeneous echogenicity, expected vascular flow. Isthmus: 0.2 cm The most suspicious thyroid nodule(s) (up to four) as below: NODULE 1: Location: Upper pole right Size: 0.7 x 0.7 x 0.5 cm Characteristics: Composition: Solid or almost completely solid, 2 points Echogenicity: Hypoechoic, 2 points Shape: Ywlem-ggai-kipa, 0 points Margin: Smooth, 0 points Echogenic foci (add points for all that apply): None, 0 points Internal vascularity: absent Interval growth: No significant growth given differences in technique TI-RADS Category: TR4 ACR Recommendation: TI-RADS 4 nodule. No FNA or follow-up imaging is advised. NODULE 2: Location: Mid right Size: 2.8 x 1.8 x 2 cm Characteristics: Composition: Solid or almost completely solid, 2 points Echogenicity: Hypoechoic, 2 points Shape: Vkaepn-cyof-ecki, 3 points Margin: Smooth, 0 points Echogenic foci (add points for all that apply): None, 0 points Internal vascularity: present Interval growth: No prior available for comparison TI-RADS Category: TR5 ACR Recommendation: TI-RADS 5 nodule. FNA is advised. NODULE 3: Location: Mid left Size: 0.8 x 0.7 x 0.7 cm Characteristics: Composition: Solid or almost completely solid, 2 points Echogenicity: Hypoechoic, 2 points Shape: Yyzty-nfkz-tigv, 0 points Margin: Smooth, 0 points Echogenic foci (add points for all that apply): None, 0 points Internal vascularity: absent Interval growth: No prior available for comparison TI-RADS Category: TR4 ACR Recommendation: TI-RADS 4 nodule. No FNA or follow-up imaging is advised. IMPRESSION: Thyroid nodule(s) is/are present. Fine needle aspiration is recommended if not previously performed. . TI-RADS Category: TR5 ACR Recommendation: TI-RADS 5 nodule. FNA is advised. ACR recommendations are strictly based on the size and imaging appearance at the time of the exam and do not consider stability or previous biopsy results. ACTIONABLE RESULT: FOLLOW-UP Acuity: Actionable Findings: Endocrine (thyroid) Routing Code: EMI_1 Recommendation: Unlisted Recommendation (see report) Time Frame: At the discretion of the clinical team. COMMUNICATION: Results will be communicated with the ordering provider via [employer] staff message or phone message by [facility] within 2 business days of report finalization. --END OF FINDING-- Colorectal Surgeon: PSCConsuelo Transcribe Date/Time: Aug 27 2024 2:25P Dictated by : MO HO MD This examination was interpreted and the report reviewed and electronically signed by: MO HO MD on Aug 27 2024 3:16PM EST [id number] N ACTIONABLE Invalid Interpretation Code [facility] Thyroid glandon Radiology Study observation (narrative) Nikia john [facility] ([id number]) 1950 F Date Time Provider Department 08/21/24 PETE MOREJON During your visit today, we recorded the following information about you: Pete Morejon, 08/21/2024 8:30 PM Signed Please let her know that her CT chest shows IMPRESSION: Small nodules. No airspace opacities are seen. Right thyroid nodule. Right adrenal adenoma. We need to do further imaging of the thyroid gland to further evaluate this incidental finding. Order is placed Also her ECHO shows: The left ventricle is normal in size. There is mild concentric left ventricular hypertrophy. Left ventricular systolic function is normal. EF = 57 ? 5% (2D biplane) Indeterminate left ventricular diastolic function. - The right ventricle is normal in size. Right ventricular systolic function is normal. - The left atrial cavity is mildly dilated. - Exam was compared with the prior echocardiographic exam performed on 04/15/2021 (Stress). 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 Please let her know that this means we need to do further testing of the heart with a cardiac MRI and urine and blood work that further evaluates this potential protein accumulation/change within the cardiac system/muscle of the heart. These tests are ordered then will need to see Per Diem Rn in the future as well. No signs of heart failure seen DO Sveta Hammer Brittany L, MA 08/22/2024 9:50 AM Signed Patient active [employer]. Patient notified via [employer] message. Please assist patient with scheduling the orders PCP placed. JEANNIE Jackson Stephanie 08/22/2024 12:37 PM Signed 1st attempt - left message for patient to return call. When she calls, soha keys schedule MRIs, labs and US ordered on 08/21/24 by PCP. Zulma Chamorro, ROCKY 08/26/2024 10:40 AM Signed [facility] operations scheduler Nina called to notify Dr. Morejon that they do not do the Cardiac test that is needed. Attempted to notify pt. answered and states pt is currently in restroom. Will attempt to contact pt again in a few minutes to get all her testing scheduled. Zulma Sinha, ROCKY 08/26/2024 10:40 AM Signed Called pt and notified [facility] unable to do the MRI cardiac test that pt needs to have done. In talking with pt, she states she cannot do a normal MRI as she is claustrophobic so she needs an open MRI. Will contact scheduling to find out if this test can be done as an open MRI and where it can be done. Will have them call pt then to schedule. Zulma Sinha, ROCKY 08/26/2024 1:14 PM Signed [facility] does not have Open MRI machines. What they do have is open-ended MRI's that provide more room. Discussed this with pt. She is still apprehensive about having this done. And she would like to have the MRIs done as close to [place] as she can. Pete Morejon DO 08/26/2024 4:52 PM Signed Okay for her to take the Valium prior to the MRI If she can't do the MRI, then just needs to be seen by Per Diem Rn for further evaluation prior to testing further Pete Morejon DO The following approved medication requests have been transmitted electronically. Requested Prescriptions Signed Prescriptions Disp Refills iv contrast (will be provided with radiology test) 1 Each 0 Sig: MRI Cardiac w/Qflow Inject, intravenously, once for 1 dose. No IV access, insert saline lock prior to the beginning of sedation, infusion, injection of imaging exam. Discontinue saline lock post exam. If Pt has a central line or IVAD, may access for administration according to line specific nursing protocol. Once exam is complete flush line and de-access according to line specific nursing protocol in the MR contrast administration guidelines link Authorizing Provider: PETE MOREJON diazePAM (VALIUM) 10 mg tablet 1 tablet 1 Sig: Take 1 tablet by mouth once in interventional radiology for 1 dose. Authorizing Provider: PETE MOREJON DO Ballinger, Rachel L, MA 08/26/2024 5:01 PM Signed Patient notified of below. Encouraged patient to schedule and try to complete. She is asking how long the MRI will be. Informed pt that I will call her back tomorrow with an answer. JEANNIE Venegas Rachel L, MA 08/27/2024 8:40 AM Signed Spoke with [facility] delivery technician Sully Rosales, she informed me that it could be anywhere from 60-90 min, depending on the patient. LM for patient to contact office. JEANNIE Venegas Rachel L, MA 08/28/2024 9:28 AM Signed LM for patient to contact office. JEANNIE Venegas Amanda, RN 08/28/2024 11:12 AM Signed Pt called and is notified of previous results and instructions. Pt voices understanding. Transferred to [facility] (more content not included)... Normal [facility] CT CHEST WO IVCONon 08-15-19 CT CHEST WO IVCON * * *Final Report* * * DATE OF EXAM: Aug 15 2024 10:24AM [facility] 0541 - CT CHEST WO IVCON / PROCEDURE REASON: SOB (shortness of breath) * * * * Physician Interpretation * * * * EXAMINATION: CHEST CT WITHOUT CONTRAST CLINICAL HISTORY: Shortness of breath Technique: Spiral CT acquisition of the chest from the thoracic inlet to the upper abdomen without contrast. MQ: CTCWO_6 CT Radiation dose: Integrated Dose-length product (DLP) for this visit = 483 mGy*cm CT Dose Reduction Employed: Automated exposure control(AEC) and iterative recon Comparison: No prior RESULT: Limitations: None. Lines, tubes, and devices: None. Lung parenchyma and airways: No consolidation is seen. Mild basilar subsegmental atelectasis noted bilaterally. Slight nodularity at the minor fissure of the right lung measuring 5 mm series 7 image 96. 3 mm nodule left apex series 7 image 23. Pleural space: No pleural effusion. Slight posterior pleural based thickening image 112 Lower neck, lymph nodes, and mediastinum: There is a nodule in the right thyroid gland measuring 2.3 cm in size series 5 image 8. No axillary lymphadenopathy is seen. Prominent precarinal lymph node is noted with short axis measurement of 13 mm series 5 image 79. Heart, pericardium, and thoracic vessels: Atherosclerotic calcifications of the thoracic aorta are seen. The cardiac chambers are normal in size. Mild coronary calcifications are present however exam is not optimized to evaluate the coronary vasculature. No pericardial effusion is seen Bones and soft tissues: Mild degenerative change of the spine Upper abdomen: There is a right adrenal nodule noted series 5 image 189. Based on Hounsfield units of 5 this is compatible with an adrenal adenoma and measures approximately 2.5 cm Localizer images: Left hip prosthesis IMPRESSION: Small nodules. No airspace opacities are seen. Right thyroid nodule. Right adrenal adenoma. Incidental Finding: Follow-up Acuity: Incidental Finding: Solid: <6 mm (solitary or multiple) Routing Code: N/A Recommendation: No imaging follow-up is recommended Time Frame: N/A Comments: If there are risk factors for lung malignancy, a follow-up chest CT exam could be obtained in 12 months --END OF FINDING-- ACTIONABLE RESULT: FOLLOW-UP Acuity: Actionable Findings: Endocrine (thyroid) Routing Code: EMI_1 Recommendation: Unlisted Recommendation (see report) Time Frame: At the discretion of the clinical team. COMMUNICATION: Results will be communicated with the ordering provider via [employer] staff message or phone message by [facility] within 2 business days of report finalization. --END OF FINDING-- Colorectal Surgeon: REVA Transcribe Date/Time: 2024 5:33P Dictated by : SYLVESTER KING MD This examination was interpreted and the report reviewed and electronically signed by: SYLVESTER KING MD on 2024 5:36PM EST [id number] N ACTIONABLE Invalid Interpretation Code [facility] ECHOon 08-15-2024 Echocardiography Echocardiography Report: Transthoracic Echo [facility] Date of service: 08/15/2024 10:58:29 AM TECH Ordering physician: PETE MOREJON Indication: Shortness of Breath Technologist: Blanca Pelayo [facility] Interpreting physician: Ronald Padilla MD PATIENT: Name: MRS. MARY REYES : 1950 Age: 73 years Gender: F History of hypertension and chronic kidney disease. Primary rhythm: sinus. Height: 173.40 cm BSA: 2.36 m Weight: 115.67 kg BMI: 38.5 kg/m Heart rate 62 bpm Blood pressure 137/77 mmHg Technically difficult exam due to body habitus. Color Doppler was utilized to interrogate the cardiac valves assessed and spectral Doppler was utilized to determine the flow velocities and pressure gradients reported in this exam. MEASUREMENTS: Value Indexed Normal Max aortic dimension 3.5 cm Ao < 3.8 Left atrial volume 87 ml (biplane A-L) 37 ml/m Arslan <= 34 LV ID (diastole) 4.1 cm (2D) 1.72 cm/m LV ID (systole) 2.9 cm (2D) 1.23 cm/m IVS, leaflet tips 1.4 cm (2D) Posterior wall thickness 1.5 cm (2D) Left ventricular mass 223 g (2D) 94 g/m LV stroke volume 66 ml (2D biplane) LV end diastolic volume 115 ml (2D biplane) 48.9 ml/m 29<=EDVi<62 LV end systolic volume 50 ml (2D biplane) 21.1 ml/m Ejection Fraction 57 % (2D biplane) EF > 54 FINDINGS: LEFT VENTRICLE The left ventricle is normal in size. There is mild concentric left ventricular hypertrophy. Left ventricular systolic function is normal. Indeterminate left ventricular diastolic function. Mitral annular lateral E/e': 21.3. Mitral annular septal E/e': 25.5. Wall Motion: All scored segments are normal. RIGHT VENTRICLE The right ventricle is normal in size. Right ventricular systolic function is normal. RV systolic tissue Doppler velocity is 13.0 cm/s. Estimated right atrial pressure is 3 mmHg (although IVC not seen). LEFT ATRIUM The left atrial cavity is mildly dilated. RIGHT ATRIUM The right atrial cavity is normal in size. Inferior Vena Cava: The inferior vena cava appears normal measuring 1.8 cm. MITRAL VALVE There is mild mitral annular calcification observed anterior and posterior. There is trace mitral valve regurgitation. The pressure half time is 73 msec. The peak mitral E/A ratio is 1.26. The average mitral E/e' ratio is 23.4. The mitral flow deceleration time is 252 msec. TRICUSPID VALVE The tricuspid valve leaflets are structurally normal. There is no tricuspid valve regurgitation. AORTIC VALVE The aortic valve cusps are structurally normal. There is no aortic valve regurgitation. Tricuspid aortic valve. The peak gradient is 6 mmHg (peak velocity = 127.2 cm/s). PULMONIC VALVE The pulmonic valve cusps are structurally normal. There is no pulmonic valve regurgitation. AORTA The visualized aorta is normal in size. Measurements - Mid ascending aorta 3.5 cm. PERICARDIUM There is no pericardial effusion. There is an epicardial fat pad. CONCLUSIONS: - Technically difficult exam due to body habitus. - Exam indication: Shortness of Breath - The left ventricle is normal in size. There is mild concentric left ventricular hypertrophy. Left ventricular systolic function is normal. EF = 57 5% (2D biplane) Indeterminate left ventricular diastolic function. - The right ventricle is normal in size. Right ventricular systolic function is normal. - The left atrial cavity is mildly dilated. - Exam was compared with the prior echocardiographic exam performed on 04/15/2021 (Stress). 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 * * * Final * * * [employer] Image : [id number] [id number] Normal [facility] [id number] 08-09-2024 [id number] HNO ID: [id number] Author: JEIMY AQUINO RN Service: ? Author Type: Registered Nurse Type: [id number] Filed: 08/09/2024 10:14 Note Text: The patient received a copy of Colonoscopy discharge instructions that contain information for how to contact the physician who performed the procedure and when to seek medical care. Normal [facility] Colonoscopyon 08-09-2024 Colonoscopy [place] [facility] G[facility] Patient Name: Mary Reyes Procedure Date: 08/09/2024 9:28 AM Date of : 1950 Admit Type: Outpatient Age: 73 Gender: Female Note Status: Finalized Procedure: Colonoscopy Indications: Screening for colorectal malignant neoplasm Providers: Thom Ruiz MD Patient Profile: This is a 73 year old female. Refer to note in patient chart for documentation of history and physical. Last Colonoscopy: June 2014. Referring Physician: Savanah Henson (Referring MD) Medicines: Fentanyl 100 micrograms IV, Midazolam 6 mg IV, Ondansetron 4 mg IV, Diphenhydramine 50 mg IV Complications: No immediate complications. Estimated blood loss: None. Requesting Provider: Procedure: Pre-Anesthesia Assessment: - Prior to the procedure, a History and Physical was performed, and patient medications and allergies were reviewed. The patient's tolerance of previous anesthesia was also reviewed. The risks and benefits of the procedure and the sedation options and risks were discussed with the patient. All questions were answered, and informed consent was obtained. Prior Anticoagulants: The patient has taken no anticoagulant or antiplatelet agents except for aspirin. ASA Grade Assessment: III - A patient with severe systemic disease. After reviewing the risks and benefits, the patient was deemed in satisfactory condition to undergo the procedure. After I obtained informed consent, the scope was passed under direct vision. Throughout the procedure, the patient's blood pressure, pulse, and oxygen saturations were monitored continuously. The Colonoscope was introduced through the anus and advanced to the cecum, identified by appendiceal orifice and ileocecal valve. The colonoscopy was performed without difficulty. The patient tolerated the procedure well. The quality of the bowel preparation was adequate to identify polyps greater than 5 mm in size. The ileocecal valve, appendiceal orifice, and rectum were photographed. Moderate Sedation: The administration of moderate sedation was initiated at 09:36. Moderate (conscious) sedation was personally administered by the endoscopist. The following parameters were monitored: oxygen saturation, heart rate, blood pressure, respiratory rate, EKG, adequacy of pulmonary ventilation, and response to care. Total physician intraservice time was 19 minutes. Findings: The perianal and digital rectal examinations were normal. Multiple medium-mouthed and small-mouthed diverticula were found in the sigmoid colon and descending colon. Non-bleeding internal hemorrhoids were found during retroflexion. The hemorrhoids were moderate and medium-sized. The exam was otherwise without abnormality. Impression: - Diverticulosis in the sigmoid colon and in the descending colon. - Non-bleeding internal hemorrhoids. - The examination was otherwise normal. - No specimens collected. Recommendation: - Patient has a contact number available for emergencies. The signs and symptoms of potential delayed complications were discussed with the patient. Return to normal activities tomorrow. Written discharge instructions were provided to the patient. - Resume previous diet. - Continue present medications. - Repeat colonoscopy in 10 years for screening purposes. - Return to primary care physician PRN. - Resume previous antiplatelet medication today at prior dose. Procedure Code(s): --- Professional --- 64247, Colonoscopy, flexible; diagnostic, including collection of specimen(s) by brushing or washing, when performed (separate procedure) G0500, Moderate sedation services provided by the same physician or other qualified health animal care specialist performing a gastrointestinal endoscopic service that sedation supports, requiring the presence of an independent trained observer to assist in the monitoring of the patient's level of consciousness and physiological status; initial 15 minutes of intra-service time; patient age 5 years or older (additional time may be reported with 90374, as appropriate) Diagnosis Code(s): --- Professional --- Z12.11, Encounter for screening for malignant neoplasm of colon K64.8, Other hemorrhoids K57.30, Diverticulosis of large intestine without perforation or abscess without bleeding CPT copyright 2020 [employer]. All rights reserved. The codes documented in this report are preliminary and upon voting machine repairer review may be revised to meet current compliance requirements. Attending Participation: I personally performed the entire procedure. Scope In: 9:41:46 AM Scope Out: 9:55:28 AM MD Thom Johnson MD 08/09/2024 9:58:29 AM This report has been signed electronically by Thom Ruiz MD Number of Addenda: 0 Note Initiated On: 08/09/2024 9:28 AM Estimated Blood Loss: Estimated blood loss: (more content not included)... Normal [facility] Colonoscopy Study observatio non 08-09-2024 [facility] Gastrointestinal Endoscopy Patient Name: Mary Reyes Procedure Date: 08/09/2024 9:28 AM Date of : 1950 Admit Type: Outpatient Age: 73 Gender: Female Note Status: Finalized Procedure: Colonoscopy Indications: Screening for colorectal malignant neoplasm Providers: Thom Ruiz MD Patient Profile: This is a 73 year old female. Refer to note in patient chart for documentation of history and physical. Last Colonoscopy: June 2014. Referring Physician: Savanah Henson (Referring ) Medicines: Fentanyl 100 micrograms IV, Midazolam 6 mg IV, Ondansetron 4 mg IV, Diphenhydramine 50 mg IV Complications: No immediate complications. Estimated blood loss: None. Requesting Provider: Procedure: Pre-Anesthesia Assessment: - Prior to the procedure, a History and Physical was performed, and patient medications and allergies were reviewed. The patient's tolerance of previous anesthesia was also reviewed. The risks and benefits of the procedure and the sedation options and risks were discussed with the patient. All questions were answered, and informed consent was obtained. Prior Anticoagulants: The patient has taken no anticoagulant or antiplatelet agents except for aspirin. ASA Grade Assessment: III - A patient with severe systemic disease. After reviewing the risks and benefits, the patient was deemed in satisfactory condition to undergo the procedure. After I obtained informed consent, the scope was passed under direct vision. Throughout the procedure, the patient's blood pressure, pulse, and oxygen saturations were monitored continuously. The Colonoscope was introduced through the anus and advanced to the cecum, identified by appendiceal orifice and ileocecal valve. The colonoscopy was performed without difficulty. The patient tolerated the procedure well. The quality of the bowel preparation was adequate to identify polyps greater than 5 mm in size. The ileocecal valve, appendiceal orifice, and rectum were photographed. Moderate Sedation: The administration of moderate sedation was initiated at 09:36. Moderate (conscious) sedation was personally administered by the endoscopist. The following parameters were monitored: oxygen saturation, heart rate, blood pressure, respiratory rate, EKG, adequacy of pulmonary ventilation, and response to care. Total physician intraservice time was 19 minutes. Findings: The perianal and digital rectal examinations were normal. Multiple medium-mouthed and small-mouthed diverticula were found in the sigmoid colon and descending colon. Non-bleeding internal hemorrhoids were found during retroflexion. The hemorrhoids were moderate and medium-sized. The exam was otherwise without abnormality. Impression: - Diverticulosis in the sigmoid colon and in the descending colon. - Non-bleeding internal hemorrhoids. - The examination was otherwise normal. - No specimens collected. Recommendation: - Patient has a contact number available for emergencies. The signs and symptoms of potential delayed complications were discussed with the patient. Return to normal activities tomorrow. Written discharge instructions were provided to the patient. - Resume previous diet. - Continue present medications. - Repeat colonoscopy in 10 years for screening purposes. - Return to primary care physician PRN. - Resume previous antiplatelet medication today at prior dose. Procedure Code(s): --- Professional --- 49725, Colonoscopy, flexible; diagnostic, including collection of specimen(s) by brushing or washing, when performed (separate procedure) G0500, Moderate sedation services provide (more content not included)... PROVATION [facility] Radiology Study observation (narrative) [facility] HISTORY PHYSICALon HISTORY PHYSICAL HNO ID: [id number] Author: THOM RUIZ MD Service: General Surgery Author Type: Physician Type: H&P Filed: 08/09/2024 08:49 Note Text: [employer] offered: Patient declines. Mary is a 73 year old who presents for an annual gynecologic exam without complaints. Postmenopausal: Yes HRT use: No. 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 LMP: Postmenopausal Age at Menarche: Age at First : Age at Menopause: Dean Of Admissions History Comments: Sexual Activity: Yes; Male Contraception: No contraception data on record PAST MEDICAL HISTORY PAST MEDICAL HISTORY Diagnosis Date Arthritis left knee, back Chronic kidney disease, stage 3a (HCC) 05/26/2023 Complication of anesthesia N/V DDD (degenerative disc disease), lumbar Diulus, Cole Diverticulosis of colon (without mention of hemorrhage) 05/27 Diverticulosis Head injury 1971 left hand numbness, decrease coordination on right (dominant) IFG (impaired fasting glucose) 03/2017 a1c 5.8% Insomnia, unspecified improved Mild atherosclerosis of carotid artery 2016 internal, 0-19% Papanicolaou smear of cervix with atypical squamous cells of undetermined significance (ASC-US) 2009 ASCUS HPV negative, Dr Whiteside Snoring Tremor left hand Unspecified essential hypertension borderline PAST SURGICAL HISTORY PAST SURGICAL HISTORY Procedure Laterality Date ARTHROSCOPY KNEE DIAGNOSTIC W/WO SYNOVIAL BX SPX 03/25/2003 Arthroscopy, knee LEFT ARTHRP ACETBLR/PROX FEM PROSTC AGRFT/ALGRFT Left 03/27/[address] Mederos, [facility] ARTHRP KNE CONDYLEANDPLATU MEDIALANDLAT COMPARTMENTS 10/04/10 Knee replacement, total Knee ARTHRP KNE CONDYLEANDPLATU MEDIALANDLAT COMPARTMENTS Right 10/01/2018 Dr. Mata, [facility] COLONOSCOPY FLX DX W/COLLJ SPEC WHEN PFRMD 06/02/04 Repeat in COLONOSCOPY FLX DX W/COLLJ SPEC WHEN PFRMD 06/23/14 no polyps EYE SURGERY HX 06/27/14 left laeral rectus recession-strabismus F SI JOINT INJECTION 02/02/12 LIG/TRNSXJ FLP TUBE ABDL/VAG APPR UNI/BI 1982 Tubal ligation NEUROPLASTY AND/TRANSPOS MEDIAN NRV CARPAL TUNNE 09/2000 Carpal tunnel decomp LEFT PAST SURGICAL HISTORY OF 1988 LEFT EYE, strabismus repair after injury PAST SURGICAL HISTORY OF 1970 skull fracture (ice skating) FAMILY HISTORY FAMILY HISTORY Problem Relation Age of Onset Heart Mother atrial fibrilation/diverticu litis/osteoporosis Stroke Father Breast Cancer Maternal Grandmother Stroke Maternal Grandmother Stroke Paternal Grandfather Heart Brother SOCIAL HISTORY Social History Tobacco Use Smoking status: Never Smokeless tobacco: Never Vaping Use Vaping status: Never Used Substance Use Topics Alcohol use: Yes Comment: 6 per year Drug use: No REVIEW OF SYSTEMS Abdomen: No abdominal pain, nausea, vomiting, diarrhea, or constipation. No bloating, early satiety, indigestion, or increased flatulence. Bladder: No dysuria, gross hematuria, urinary frequency, urinary urgency, or incontinence Breast: No breast lumps, nipple d/c, overlying skin changes, redness or skin retraction Allergies and current medication updated:Yes SENSITIVE EXAM: The sensitive examination was discussed with the Patient or Patient's Authorized Executive Relations Specialist. As applicable, any other physician, advance practice provider, medical student, or other health professional student that will be observing or involved in the sensitive examination for educational or training purposes was discussed with the Patient or Authorized Executive Relations Specialist. The Patient or Authorized Executive Relations Specialist has agreed to proceed with the sensitive examination. (Sensitive examination includes inspection and/or palpation of the breasts, pelvis, prostate and anorectal regions). EXAM: BP 130/86 Ht 5' 8.25 (1.73m) Wt 255 lb (115.7kg) BMI 38.47 kg/(m2). GENERAL: pleasant, female in no apparent distress HEENT: Normocephalic, atraumatic, mucus membranes moist, and no lesions NECK: Supple, full range of motion, no adenopathy, and thyroid normal DERMATOLOGY: Normal, without lesions, non-icteric, and non-hirsute BREAST: soft, non-tender, symmetric, no dominant mass, normal nipple-areolar complex, no lymphadenopathy, and no nipple discharge ABDOMEN: soft, non-tender, and no masses PELVIC: external genitalia normal, normal Bartholin's glands, urethra, [place]'s glands, no vulvar lesions, good vaginal support, physiologic discharge present, normal appearing perineal body and perianal region, cervix appears flush with vagina BIMANUAL: uterus feels normal size, shape and consistency, no adnexal masses, and non-tender (more content not included)... Normal [facility] CNOVon 07-30-2024 CNOV Office Visit (FAMPWS ) MARY REYES ([id number]) 1950 F Date Time Provider Department 07/30/24 12:00 PM PETE MOREJON [facility] During your visit today, we recorded the following information about you: Temperature Pulse Respiration Blood pressure 98 degrees 84/minute 20/minute 126/70 Weight 115.7 kg Pete Morejon DO 07/30/2024 4:16 PM Signed CC: Mary Reyes is a 73 year old female who presents to the office for follow up HPI: Left 4th finger trigger finger, symptoms are mild. Doesn't want to pursue surgery at this time. No injuries. No severe pain Arthritis, overall has been stable, no recent falls. Does admit to shortness of breath, she was diagnosed and treated for pneumonia in Apr and had recent CXR showing concerns for atelectasis, no chest pressure or pain. Has a history of LVH. Last echo was a few years ago. No syncope but did have some LH feeling HPL, diet controlled Cholesterol, Total Date Value Ref Range Status 07/23/2024 161 <200 mg/dL Final Comment: <200 mg/dL, Desirable 200-239 mg/dL, Borderline high >239 mg/dL, High HDL Cholesterol Date Value Ref Range Status 07/23/2024 42 >39 mg/dL Final Comment: 40-59 mg/dL, Acceptable >59 mg/dL, High: Negative risk factor for coronary heart disease <40 mg/dL, Low: Positive risk factor for coronary heart disease LDL Cholesterol Date Value Ref Range Status 07/23/2024 100 (H) <100 mg/dL Final Comment: <100 mg/dL, Optimal 100-129 mg/dL, Near optimal/above optimal 130-159 mg/dL, Borderline high 160-189 mg/dL, High >189 mg/dL, Very high Secondary prevention optimal LDL Cholesterol levels are recommended to be < 70 mg/dL Triglyceride Date Value Ref Range Status 07/23/2024 93 <150 mg/dL Final Comment: <150 mg/dL, Normal 150-199 mg/dL, Borderline high 200-499 mg/dL, High >499 mg/dL, Very high IFG, diet controlled. Not on any medications Hemoglobin A1C Date Value Ref Range Status 07/23/2024 5.6 4.3 - 5.6 % Final Comment: [place] [employer] guidelines indicate that patients with HgbA1c in the range 5.7-6.4% are at increased risk for development of diabetes, and intervention by lifestyle modification may be beneficial. HgbA1c greater or equal to 6.5% is considered diagnostic of diabetes. 11/24/2023 5.8 (H) 4.3 - 5.6 % Final Comment: [place] [employer] guidelines indicate that patients with HgbA1c in the range 5.7-6.4% are at increased risk for development of diabetes, and intervention by lifestyle modification may be beneficial. HgbA1c greater or equal to 6.5% is considered diagnostic of diabetes. 05/23/2023 5.5 4.3 - 5.6 % Final Comment: [place] [employer] guidelines indicate that patients with HgbA1c in the range 5.7-6.4% are at increased risk for development of diabetes, and intervention by lifestyle modification may be beneficial. HgbA1c greater or equal to 6.5% is considered diagnostic of diabetes. 05/09/2022 5.8 (H) 4.3 - 5.6 % Final Comment: [place] [employer] guidelines indicate that patients with HgbA1c in the range 5.7-6.4% are at increased risk for development of diabetes, and intervention by lifestyle modification may be beneficial. HgbA1c greater or equal to 6.5% is considered diagnostic of diabetes. 04/19/2021 5.9 (H) 4.3 - 5.6 % Final Comment: [place] [employer] guidelines indicate that patients with HgbA1c in the range 5.7-6.4% are at increased risk for development of diabetes, and intervention by lifestyle modification may be beneficial. HgbA1c greater or equal to 6.5% is considered diagnostic of diabetes. PAST MEDICAL HISTORY Diagnosis Date Arthritis left knee, back Chronic kidney disease, stage 3a (HCC) 05/26/2023 Complication of anesthesia N/V DDD (degenerative disc disease), lumbar Diulus, Cole Diverticulosis of colon (without mention of hemorrhage) 05/27 Diverticulosis Head injury 1971 left hand numbness, decrease coordination on right (dominant) IFG (impaired fasting glucose) 03/2017 a1c 5.8% Insomnia, unspecified improved Mild atherosclerosis of carotid artery 2016 internal, 0-19% Papanicolaou smear of cervix with atypical squamous cells of undetermined significance (ASC-US) 2009 ASCUS HPV negative, Dr Whiteside Snoring Tremor left hand Unspecified essential hypertension borderline PAST SURGICAL HISTORY Procedure Laterality Date ARTHROSCOPY KNEE DIAGNOSTIC W/WO SYNOVIAL BX SPX 03/25/2003 Arthroscopy, knee LEFT ARTHRP ACETBLR/PROX FEM PROSTC AGRFT/ALGRFT Left 03/27/[address] Mederos, [facility] ARTHRP KNE CONDYLEANDPLATU MEDIALANDLAT COMPARTMENTS 10/04/10 Knee replacement, total Knee ARTHRP KNE CONDYLEANDPLATU MEDIALANDLAT COMPARTMENTS Right 10/01/2018 Dr. Mata, [facility] COLONOSCOPY FLX DX W/COLLJ SPEC WHEN PFRMD 06/02/04 Repeat in COLONOSCOPY FLX DX W/QASIM (more content not included)... Normal [facility] 25(OH)D3 [facility] 2023 25-hydroxyvitamin D3 [Mass/Vol] 39.3 ng/mL Normal 31.0-80.0 [facility] Comment on above: Order Comment: Speci men Type: BLOOD SPECIMENOrdering Facility: [facility] Address: [address] [place] [address] Result Comment: Clas sification of 25 OH Vitamin D status: Deficiency/Insufficiency: < or = 30 ng/ml. Sufficiency/Optimal Levels: 31-80 ng/mL Toxicity: > 100 ng/mL. Test performed by chemiluminescent immunoassay. Performed By: #### 1 989-3 ####[facility] LABCLIA [id number] [facility] [place] [address] [place] Basic metabolic 2000 panelon 07-23-2024 Anion gap [Moles/Vol] 7 mmol/L Low 8-15 [place] Comment on above: Order Comment: Speci men Type: BLOOD SPECIMENOrdering Facility: [facility] Address: [address] [place] [address] Performed By: #### 2 4321-2 ####[facility] FABIENNE MILLTOWNCLIA [id number] [place] [address] [place] Calcium [Mass/Vol] 9.2 mg/dL Normal 8.5-10.2 [facility] Comment on above: Order Comment: Speci men Type: BLOOD SPECIMENOrdering Facility: [facility] Address: [address] [place] [address] Performed By: #### 2 4321-2 ####[facility] FABIENNE MILLTOWNCLIA [id number] [place] [address] [place] Chloride [Moles/Vol] 104 mmol/L Normal 98-107 [facility] Comment on above: Order Comment: Speci men Type: BLOOD SPECIMENOrdering Facility: [facility] Address: [address] [place] [address] Performed By: #### 2 4321-2 ####[facility] FABIENNE MILLTOWNCLIA [id number] [place] [address] [place] CO2 [Moles/Vol] 29 mmol/L Normal 22-30 [facility] Comment on above: Order Comment: Speci men Type: BLOOD SPECIMENOrdering Facility: [facility] Address: [address] [place] [address] Performed By: #### 2 4321-2 ####[facility] KAISERGRAND RIDGENCLI [id number] [place] [address] [place] Creatinine [Mass/Vol] 0.89 mg/dL Normal 0.58-0.96 [place] Comment on above: Order Comment: Speci men Type: BLOOD SPECIMENOrdering Facility: [facility] Address: [address] [place] [address] Performed By: #### 2 4321-2 ####[facility] [id number] [place] [address] [place] Creatinine and Glomerular filtration rate.predicted panel (S/P/Bld) 69 mL/min/1.73m??? Normal >=60 [facility] Comment on above: Order Comment: Speci men Type: BLOOD SPECIMENOrdering Facility: [facility] Address: [address] [place] [address] Result Comment: Nicolasa mated Glomerular Filtration Rate (eGFR) is calculated using the 2020 CKD-EPI creatinine equation. This equation utilizes serum creatinine, sex, and age as parameters. The creatinine assay has traceable calibration to isotope dilution-mass spectrometry. Refer to KDIGO guidelines for clinical interpretation. In patients with unstable renal function, e.g. those with acute kidney injury, the eGFR may not accurately reflect actual GFR. Performed By: #### 2 4321-2 ####[facility] [id number] [place] [address] [place] Glucose [Mass/Vol] 109 mg/dL High 74-99 [facility] Comment on above: Order Comment: Speci men Type: BLOOD SPECIMENOrdering Facility: [facility] Address: [address] [place] [address] Result Comment: The [place] Diabetes Association (ADA) provides guidance for cutoff values for fasting glucose and random glucose. The ADA defines fasting as no caloric intake for at least 8 hours. Fasting plasma glucose results between 100 to 125 mg/dL indicate increased risk for diabetes (prediabetes). Fasting plasma glucose results greater than or equal to 126 mg/dL meet the criteria for diagnosis of diabetes. In the absence of unequivocal hyperglycemia, results should be confirmed by repeat testing. In a patient with classic symptoms of hyperglycemia or hyperglycemic crisis, random plasma glucose results greater than or equal to 200 mg/dL meet the criteria for diagnosis of diabetes. Reference: Standards of Medical Care in Diabetes 2016, [place] Diabetes Association. Diabetes Care. 2016.39(Suppl 1). Performed By: #### 2 4321-2 ####[facility] MILLTOWCLARELIA [id number] [place] [address] [place] Potassium [Moles/Vol] 3.8 mmol/L Normal 3.7-5.1 [place] Comment on above: Order Comment: Speci men Type: BLOOD SPECIMENOrdering Facility: [facility] Address: [address] [place] [address] Performed By: #### 2 4321-2 ####[facility] CENTERCLARELIA [id number] [place] [address] [place] Sodium [Moles/Vol] 140 mmol/L Normal 136-144 [facility] Comment on above: Order Comment: Speci men Type: BLOOD SPECIMENOrdering Facility: [facility] Address: [address] [place] [address] Performed By: #### 2 4321-2 ####[facility]ITALWNCLIA [id number] [place] [address] [place] Urea nitrogen [Mass/Vol] 16 mg/dL Normal 7-21 [facility] Comment on above: Order Comment: Speci men Type: BLOOD SPECIMENOrdering Facility: [facility] Address: [address] [id number] Performed By: #### 2 4321-2 ####[facility]ITALWNCLIA [id number] [place] [address] [place] CBC W Auto Differential pane l (Bld)on 07-23-2024 Basophils (Bld) [#/Vol] 0.09 10*3/uL Normal <0.11 [facility] Comment on above: Order Comment: Speci men Type: BLOOD SPECIMENOrdering Facility: [facility] Address: [address] [place] [address] Performed By: #### 5 7021-8 ####[facility] [id number] [place] [address] [place] Basophils/100 WBC (Bld) 1.2 % Normal [facility] Comment on above: Order Comment: Speci men Type: BLOOD SPECIMENOrdering Facility: [facility] Address: [address] [place] [address] Performed By: #### 5 7021-8 ####[facility] [id number] [place] [address] [place] Differential cell count method Nom (Bld) Auto Normal [facility] Comment on above: Order Comment: Speci men Type: BLOOD SPECIMENOrdering Facility: [facility] Address: [address] [place] [address] Performed By: #### 5 7021-8 ####[facility] [id number] [place] [address] [place] Eosinophils (Bld) [#/Vol] 0.36 10*3/uL Normal <0.46 [facility] Comment on above: Order Comment: Speci men Type: BLOOD SPECIMENOrdering Facility: [facility] Address: [address] [place] [address] Performed By: #### 5 7021-8 ####[facility] [id number] [place] [address] [place] Eosinophils/100 WBC (Bld) 4.8 % Normal [facility] Comment on above: Order Comment: Speci men Type: BLOOD SPECIMENOrdering Facility: [facility] Address: [address] [place] [address] Performed By: #### 5 7021-8 ####[facility] [id number] [place] [address] [place] Erythrocyte distribution width (RBC) [Ratio] 13.2 % Normal 11.5-15.0 [facility] Comment on above: Order Comment: Speci men Type: BLOOD SPECIMENOrdering Facility: [facility] Address: [address] [place] [address] Performed By: #### 5 7021-8 ####[facility] [id number] [place] [address] [place] Hematocrit (Bld) [Volume fraction] 43.5 % Normal 36.0-46.0 [facility] Comment on above: Order Comment: Speci men Type: BLOOD SPECIMENOrdering Facility: [facility] Address: [address] [place] [address] Performed By: #### 5 7021-8 ####[facility] [id number] [place] [address] [place] Hemoglobin (Bld) [Mass/Vol] 13.8 g/dL Normal 11.5-15.5 [facility] Comment on above: Order Comment: Speci men Type: BLOOD SPECIMENOrdering Facility: [facility] Address: [address] [place] [address] Performed By: #### 5 7021-8 ####[facility] [id number] [place] [address] [place] Immature granulocytes (Bld) [#/Vol] 10*3/uL Normal <0.10 [facility] Comment on above: Order Comment: Speci men Type: BLOOD SPECIMENOrdering Facility: [facility] Address: [address] [place] [address] Performed By: #### 5 7021-8 ####[facility] MILLJIMMIEWNCLIA [id number] [place] [address] [place] Immature granulocytes/100 WBC (Bld) 0.3 % Normal [facility] Comment on above: Order Comment: Speci men Type: BLOOD SPECIMENOrdering Facility: [facility] Address: [address] [place] [address] Performed By: #### 5 7021-8 ####[facility]ITALWNCLIA [id number] [place] [address] [place] Lymphocytes (Bld) [#/Vol] 2.01 10*3/uL Normal 1.00-4.00 [facility] Comment on above: Order Comment: Speci men Type: BLOOD SPECIMENOrdering Facility: [facility] Address: [address] [place] [address] Performed By: #### 5 7021-8 ####[facility] CENTERNCLIA [id number] [place] [address] [place] Lymphocytes/100 WBC (Bld) 26.6 % Normal [facility] Comment on above: Order Comment: Speci men Type: BLOOD SPECIMENOrdering Facility: [facility] Address: [address] [place] [address] Performed By: #### 5 7021-8 ####[facility]ITALWNCLIA [id number] [place] [address] [place] MCH (RBC) [Entitic mass] 27.7 pg Normal 26.0-34.0 [facility] Comment on above: Order Comment: Speci men Type: BLOOD SPECIMENOrdering Facility: [facility] Address: [address] [place] [address] Performed By: #### 5 7021-8 ####[facility]ENTERNCLIA [id number] [place] [address] [place] MCHC (RBC) [Mass/Vol] 31.7 g/dL Normal 30.5-36.0 [place] Comment on above: Order Comment: Speci men Type: BLOOD SPECIMENOrdering Facility: [facility] Address: [address] [place] [address] Performed By: #### 5 7021-8 ####[facility] [id number] [place] [address] [place] MCV (RBC) [Entitic vol] 87.2 fL Normal 80.0-100.0 [facility] Comment on above: Order Comment: Speci men Type: BLOOD SPECIMENOrdering Facility: [facility] Address: [address] [place] [address] Performed By: #### 5 7021-8 ####[facility] [id number] [place] [address] [place] Monocytes (Bld) [#/Vol] 0.92 10*3/uL High <0.87 [facility] Comment on above: Order Comment: Speci men Type: BLOOD SPECIMENOrdering Facility: [facility] Address: [address] [place] [address] Performed By: #### 5 7021-8 ####[facility] [id number] [place] [address] [place] Monocytes/100 WBC (Bld) 12.2 % Normal [facility] Comment on above: Order Comment: Speci men Type: BLOOD SPECIMENOrdering Facility: [facility] Address: [address] [place] [address] Performed By: #### 5 7021-8 ####[facility] [id number] [place] [address] [place] Neutrophils (Bld) [#/Vol] 4.16 10*3/uL Normal 1.45-7.50 [facility] Comment on above: Order Comment: Speci men Type: BLOOD SPECIMENOrdering Facility: [facility] Address: [address] [place] [address] Performed By: #### 5 7021-8 ####[facility] [id number] [place] [address] [place] Neutrophils/100 WBC (Bld) 54.9 % Normal [facility] Comment on above: Order Comment: Speci men Type: BLOOD SPECIMENOrdering Facility: [facility] Address: [address] [place] [address] Performed By: #### 5 7021-8 ####[facility] [id number] [place] [address] [place] Nucleated RBC (Bld) [#/Vol] 10*3/uL Normal <0.01 [facility] Comment on above: Order Comment: Speci men Type: BLOOD SPECIMENOrdering Facility: [facility] Address: [address] [place] [address] Performed By: #### 5 7021-8 ####[facility] [id number] [place] [address] [place] Nucleated RBC/100 WBC (Bld) [Ratio] 0.0 /100 WBC Normal [facility] Comment on above: Order Comment: Speci men Type: BLOOD SPECIMENOrdering Facility: [facility] Address: [address] [place] [address] Performed By: #### 5 7021-8 ####[facility] [id number] [place] [address] [place] Platelet mean volume (Bld) [Entitic vol] 10.7 fL Normal 9.0-12.7 [facility] Comment on above: Order Comment: Speci men Type: BLOOD SPECIMENOrdering Facility: [facility] Address: [address] [place] [address] Performed By: #### 5 7021-8 ####[facility] KIAH [id number] [place] [address] [place] Platelets (Bld) [#/Vol] 293 10*3/uL Normal 150-400 [facility] Comment on above: Order Comment: Speci men Type: BLOOD SPECIMENOrdering Facility: [facility] Address: [address] [place] [address] Performed By: #### 5 7021-8 ####[facility] KAISERRabiaNCLIA [id number] [place] [address] [place] RBC (Bld) [#/Vol] 4.99 10*6/uL Normal 3.90-5.20 [facility] Comment on above: Order Comment: Speci men Type: BLOOD SPECIMENOrdering Facility: [facility] Address: [address] [place] [address] Performed By: #### 5 7021-8 ####[facility] [id number] [place] [address] [place] WBC (Bld) [#/Vol] 7.56 10*3/uL Normal 3.70-11.00 [facility] Comment on above: Order Comment: Speci men Type: BLOOD SPECIMENOrdering Facility: [facility] Address: [address] [place] [address] Performed By: #### 5 7021-8 ####[facility] [id number] [place] [address] [place] [facility] [place] HbA1c (Bld)on 07-23-2024 Average glucose Estimated from glycated hemoglobin (Bld) [Mass/Vol] 114 mg/dL Normal [facility] Comment on above: Order Comment: Speci men Type: BLOOD SPECIMENOrdering Facility: [facility] Address: [address] [place] [address] Result Comment: eAG: (Estimated average glucose) is a calculated value from HgbA1c and is retail wireless sales representative of the average blood glucose level in the last 2-3 month period. Performed By: #### 5 5454-3 ####[facility] LABCLIA [id number] [place] [address] [place] HbA1c (Bld) [Mass fraction] 5.6 % Normal 4.3-5.6 [facility] Comment on above: Order Comment: Cristi garcia Type: BLOOD SPECIMENOrdering Facility: [facility] Address: [address] [place] [address] Result Comment: Amer ican Diabetes Association guidelines indicate that patients with HgbA1c in the range 5.7-6.4% are at increased risk for development of diabetes, and intervention by lifestyle modification may be beneficial. HgbA1c greater or equal to 6.5% is considered diagnostic of diabetes. Performed By: #### 5 5454-3 ####[facility] LABIA [id number] [address] [place] Lipid 1996 panelon 4 Cholesterol [Mass/Vol] 161 mg/dL Normal <200 [facility] Comment on above: Order Comment: Cristi garcia Type: BLOOD SPECIMENOrdering Facility: [facility] Address: [address] [place] [address] Result Comment: <200 mg/dL, Desirable 200-239 mg/dL, Borderline high >239 mg/dL, High Performed By: #### 2 132-9 ####[facility] LABCLIA [id number] [place] [address] [place]#### 79593-7 ####[facility] LABIA [id number] [place] [address] [place] [facility] [id number] [place] [address] [place] Cholesterol in HDL [Mass/Vol] 42 mg/dL Normal >39 [facility] Comment on above: Order Comment: Speci men Type: BLOOD SPECIMENOrdering Facility: [facility] Address: [address] [place] [address] Result Comment: 40-5 9 mg/dL, Acceptable >59 mg/dL, High: Negative risk factor for coronary heart disease <40 mg/dL, Low: Positive risk factor for coronary heart disease Performed By: #### 2 132-9 ####[facility] LABCLIA [id number] [place] [address] [place]#### 11628-3 ####[facility] LABCLIA [id number] [address] STATES OF [facility] [id number] [address] [place] Cholesterol in LDL [Mass/Vol] 100 mg/dL High <100 [facility] Comment on above: Order Comment: Speci men Type: BLOOD SPECIMENOrdering Facility: [facility] Address: [address] [place] [address] Result Comment: <100 mg/dL, Optimal 100-129 mg/dL, Near optimal/above optimal 130-159 mg/dL, Borderline high 160-189 mg/dL, High >189 mg/dL, Very high Secondary prevention optimal LDL Cholesterol levels are recommended to be < 70 mg/dL Performed By: #### 2 132-9 ####[facility] LABCLIA [id number] [address] [place]#### 39219-8 ####[facility] LABCLIA [id number] [address] STATES OF [facility] [id number] [address] STATES [place] Cholesterol in LDL/Cholesterol in HDL [Mass ratio] 2.38 {ratio} Normal <2.54 [facility] Comment on above: Order Comment: Speci men Type: BLOOD SPECIMENOrdering Facility: [facility] Address: [address] [place] [address] Result Comment: Linda cornejo: 1. National Cholesterol Education Program ATP III Guideline At-A-Glance Quick Desk Reference: National Heart, Lung, and Blood [place]. National Institutes of Health. 2001: NIH Publication No. 01-3305. 2. An International Atherosclerosis Society position paper: global recommendations for the management of dyslipidemia: executive summary, Atherosclerosis. 2014: 232(2):410-413. Performed By: #### 2 132-9 ####[facility] LABCLIA [id number] [place] [address] [place]#### 26436-5 ####[facility] LABCLIA [id number] [address] [id number] [place] [address] [place] Cholesterol in VLDL [Mass/Vol] 19 mg/dL Normal <30 [facility] Comment on above: Order Comment: Speci men Type: BLOOD SPECIMENOrdering Facility: [facility] Address: [address] [place] [address] Performed By: #### 2 132-9 ####[facility] LABCLIA [id number] [place] [address] [place]#### 39699-0 ####[facility] LABCLIA [id number] [address] [id number] [place] [address] [place] Cholesterol non HDL [Mass/Vol] 119 mg/dL Normal <130 [facility] Comment on above: Order Comment: Speci men Type: BLOOD SPECIMENOrdering Facility: [facility] Address: [address] [place] [address] Result Comment: <130 mg/dL, Optimal 130-159 mg/dL, Near optimal/above optimal 160-189 mg/dL, Borderline high 190-219 mg/dL, High >219 mg/dL, Very high Secondary prevention optimal non HDL Cholesterol levels are recommended to be <100 mg/dL Performed By: #### 2 132-9 ####[facility] LABCLIA [id number] [place] [address] [place]#### 53708-6 ####[facility] LABCLIA [id number] [address] [id number] [place] [address] [place] Cholesterol.total/Choles terol in HDL [Mass ratio] 3.83 {ratio} Normal <5.10 [facility] Comment on above: Order Comment: Speci men Type: BLOOD SPECIMENOrdering Facility: [facility] Address: [address] [place] [address] Performed By: #### 2 132-9 ####[facility] LABCLIA [id number] [place] [address] [place]#### 10629-2 ####[facility] LABCLIA [id number] [address] [id number] [place] [address] [place] FASTING TIME 12 hrs Normal [facility] Comment on above: Order Comment: Speci men Type: BLOOD SPECIMENOrdering Facility: [facility] Address: [address] [place] [address] Performed By: #### 2 132-9 ####[facility] LABCLIA [id number] [place] [address] [place]#### 04773-6 ####[facility] LABCLIA [id number] [address] [id number] [place] [address] [place] Triglyceride [Mass/Vol] 93 mg/dL Normal <150 [facility] Comment on above: Order Comment: Speci men Type: BLOOD SPECIMENOrdering Facility: [facility] Address: [address] [place] [address] Result Comment: <150 mg/dL, Normal 150-199 mg/dL, Borderline high 200-499 mg/dL, High >499 mg/dL, Very high Performed By: #### 2 132-9 ####[facility] LABCLIA [id number] [place] [address] [place]#### 91882-3 ####[facility] LABCLIA [id number] [address] [id number] [place] [address] [place] Vit B12 [facility] 024 Cobalamin (Vitamin B12) [Mass/Vol] 968 pg/mL Normal 232-1245 [facility] Comment on above: Order Comment: Speci men Type: BLOOD SPECIMENOrdering Facility: [facility] Address: [address] [place] [address] Performed By: #### 2 132-9 ####[facility] LABCLIA [id number] [place] [address] [place]#### 45705-8 ####[facility] LABCLIA [id number] [address] STATES OF [facility] [id number] [place] [address] [place] XR CHEST 2V FRONTAL/LATon 12 -27-2024 XR CHEST 2V FRONTAL/LAT * * *Final Repor t* * * DATE OF EXAM: Jul 19 2024 11:08AM [id number] [id number] - XR CHEST 2V FRONTAL/LAT / PROCEDURE REASON: Bacterial pneumonia * * * * Physician Interpretation * * * * EXAMINATION: CHEST RADIOGRAPH (2 VIEW FRONTAL and LATERAL) CLINICAL HISTORY: Bacterial pneumonia MQ: [id number] EXAM DATE/TIME: 07/19/2024 11:08 AM COMPARISON: No relevant prior studies available. RESULT: Lines, tubes, and devices: None. Lungs and pleura: Linear atelectasis at both lung bases. No significant pleural fluid. Mild diffuse interstitial prominence. No pneumothorax Cardiomediastinal silhouette: Normal cardiomediastinal silhouette. Bones and soft tissues: Degenerative changes. IMPRESSION: Linear atelectasis at both lung bases. Mild diffuse interstitial prominence. Colorectal Surgeon: REVA Transcribe Date/Time: Jul 23 2024 8:51A Dictated by : MO HO MD This examination was interpreted and the report reviewed and electronically signed by: MO HO MD on Jul 23 2024 8:53AM EST [id number] Normal [facility] MARY REYES ([id number]) 1950 F Date Time Provider Department 07/15/24 PETE MOREJON [facility] During your visit today, we recorded the following information about you: iKm Loza MA 07/15/2024 9:45 AM Signed See [email or web address] message. Nestor Crowe ordered a chest x-ray on May 07 and again May 28. I was going to schedule and noticed there were two orders so I tried to cancel one. However, it cancelled both. Could I have just one ordered and I will get it scheduled. Thank you. Nestor Neely PA-C 07/15/2024 10:31 AM Signed I have reordered a CXR. LESLEY Doll Kathryn, MA 07/15/2024 11:13 AM Signed Notified via GLIIFhart. Kim Loza MA Allergies As of Date: 07/15/2024 Noted Allergy Reaction VICODIN (HYDROCODONE-ACETAMIN OPHE*03/25/2011 2 - Rash VIOXX (ROFECOXIB) 03/18/2005 8 - GI Upset Date Reviewed: 07/03/2024 Reviewed by: Misael Biswas MA - Fully Assessed Primary Visit Diagnosis:Bacterial pneumonia [J15.9] Order(s):XR CHEST 2V FRONTAL/LAT [[id number]] Order #: [id number] FUTURE Prescriptions as of 07/15/2024 - cholecalciferol, vitamin D3, (D3-1999 ORAL) Take by mouth. - cyanocobalamin (VITAMIN B-12) 1,000 mcg tab Take 1,000 mcg by mouth once daily. - triamcinolone acetonide (KENALOG) 0.5 % cream Apply to affected area three times a day. - vit A,C,Y-Itfq-Adorgh (PRESERVISION AREDS) 2,148 mcg-113 mg-45 mg-17.4mg tab Take 1 tablet by mouth daily with breakfast. - metoprolol succinate ER (TOPROL XL) 50 mg 24 hr tablet Take 1 tablet by mouth once daily. - metroNIDAZOLE (METROGEL) 0.75 % Topical Gel Apply to affected area twice daily. - acetaminophen (TYLENOL EXTRA STRENGTH) 500 mg tablet Take 1,000 mg by mouth every 8 hours as needed. - aspirin, enteric coated (ASPIRIN, ENTERIC COATED) 81 mg EC tablet Take 81 mg by mouth once daily. 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.1] 08/12/2008 ATROPHIC VAGINITIS [N95.2] 08/12/2008 SCREENING MAL NEOP-BREAST NOS [Z12.39] 08/12/2008 Cystocele, midline [N81.11] 08/12/2008 04/19/2011 Urgency of Urination [R39.15] 08/19/2009 Urticaria [L50.9] 03/10/2010 Rectocele [N81.6] 04/19/2011 Postmenopausal bleeding [N95.0] 04/19/2011 04/25/2012 ASCUS favor benign [R87.610] 04/19/2011 Chronic SI joint pain [M53.3, G89.29] 12/06/2011 SI (sacroiliac) joint dysfunction [M53.3] 12/06/2011 Lumbar spondylosis [M47.816] 12/06/2011 DDD (degenerative disc disease), lumbar [M51.36*12/06/2011 Lumbar radicular pain [M54.16] 12/06/2011 Lumbar facet arthropathy [M47.816] 12/06/2011 Essential hypertension [I10] Cystocele, midline [N81.11] 04/25/2012 Tremor [R25.1] Low serum HDL [R74.8] 04/19/2017 Impaired fasting glucose [R73.01] 04/19/2017 IFG (impaired fasting glucose) [R73.01] 03/24/2017 Arthritis of right knee [M17.11] 04/23/2018 Abnormal EKG [R94.31] 04/23/2018 Dyslipidemia [E78.5] 04/23/2018 Hypertension, essential [I10] 04/23/2018 LVH (left ventricular hypertrophy) [I51.7] 04/28/2021 Hyperlipidemia, mixed [E78.2] 04/28/2021 Hypoalbuminemia [E88.09] 04/28/2021 Other specified disorders of bone density and s*03/30/2022 Vitamin D deficiency [E55.9] 03/30/2022 Chronic kidney disease, stage 3a (HCC) [N18.31] 05/26/2023 Left hand paresthesia [R20.2] 05/26/2023 Acute pain of left shoulder [M25.512] 05/26/2023 Neck pain on left side [M54.2] 05/26/2023 Fatigue [R53.83] 05/26/2023 Localized swelling, mass and lump, neck [R22.1] 05/26/2023 Vitamin B12 deficiency [E53.8] 05/26/2023 Encounter Status:Closed by KIM LOZA on 07/15/24 Normal [facility] CNOVon 07-03-2024 CNOV Office Visit (OBGYWM ) MARY REYES ([id number]) 1950 F Date Time Provider Department 07/03/24 3:00 PM SAVANAH SORIA OBGYWM During your visit today, we recorded the following information about you: Blood pressure Weight Height 130/86 115.7 kg 1.734 m Savanah Soria MD 07/03/2024 3:27 PM Signed [employer] offered: Patient declines. Arshad is a 73 year old who presents for an annual gynecologic exam without complaints. Postmenopausal: Yes HRT use: No. 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 LMP: Postmenopausal Age at Menarche: Age at First : Age at Menopause: Dean Of Admissions History Comments: Sexual Activity: Yes; Male Contraception: No contraception data on record PAST MEDICAL HISTORY Diagnosis Date Arthritis left knee, back Chronic kidney disease, stage 3a (HCC) 05/26/2023 Complication of anesthesia N/V DDD (degenerative disc disease), lumbar Diulus, Cole Diverticulosis of colon (without mention of hemorrhage) 05/27 Diverticulosis Head injury 1971 left hand numbness, decrease coordination on right (dominant) IFG (impaired fasting glucose) 03/2017 a1c 5.8% Insomnia, unspecified improved Mild atherosclerosis of carotid artery 2016 internal, 0-19% Papanicolaou smear of cervix with atypical squamous cells of undetermined significance (ASC-US) 2009 ASCUS HPV negative, Dr Whiteside Snoring Tremor left hand Unspecified essential hypertension borderline PAST SURGICAL HISTORY Procedure Laterality Date ARTHROSCOPY KNEE DIAGNOSTIC W/WO SYNOVIAL BX SPX 03/25/2003 Arthroscopy, knee LEFT ARTHRP ACETBLR/PROX FEM PROSTC AGRFT/ALGRFT Left 03/27/[address] [place], [facility] ARTHRP KNE CONDYLEANDPLATU MEDIALANDLAT COMPARTMENTS 10/04/10 Knee replacement, total Knee ARTHRP KNE CONDYLEANDPLATU MEDIALANDLAT COMPARTMENTS Right 10/01/2018 Dr. Mata, [facility] COLONOSCOPY FLX DX W/COLLJ SPEC WHEN PFRMD 06/02/04 Repeat in COLONOSCOPY FLX DX W/COLLJ SPEC WHEN PFRMD 06/23/14 no polyps EYE SURGERY HX 06/27/14 left laeral rectus recession-strabismus F SI JOINT INJECTION 02/02/12 LIG/TRNSXJ FLP TUBE ABDL/VAG APPR UNI/BI 1982 Tubal ligation NEUROPLASTY AND/TRANSPOS MEDIAN NRV CARPAL TUNNE 09/2000 Carpal tunnel decomp LEFT PAST SURGICAL HISTORY OF 1988 LEFT EYE, strabismus repair after injury PAST SURGICAL HISTORY OF 1970 skull fracture (ice skating) FAMILY HISTORY Problem Relation Age of Onset Heart Mother atrial fibrilation/diverticu litis/osteoporosis Stroke Father Breast Cancer Maternal Grandmother Stroke Maternal Grandmother Stroke Paternal Grandfather Heart Brother SOCIAL HISTORY Social History Tobacco Use Smoking status: Never Smokeless tobacco: Never Vaping Use Vaping status: Never Used Substance Use Topics Alcohol use: Yes Comment: 6 per year Drug use: No REVIEW OF SYSTEMS Abdomen: No abdominal pain, nausea, vomiting, diarrhea, or constipation. No bloating, early satiety, indigestion, or increased flatulence. Bladder: No dysuria, gross hematuria, urinary frequency, urinary urgency, or incontinence Breast: No breast lumps, nipple d/c, overlying skin changes, redness or skin retraction Allergies and current medication updated:Yes SENSITIVE EXAM: The sensitive examination was discussed with the Patient or Patient's Authorized Executive Relations Specialist. As applicable, any other physician, advance practice provider, medical student, or other health professional student that will be observing or involved in the sensitive examination for educational or training purposes was discussed with the Patient or Authorized Executive Relations Specialist. The Patient or Authorized Executive Relations Specialist has agreed to proceed with the sensitive examination. (Sensitive examination includes inspection and/or palpation of the breasts, pelvis, prostate and anorectal regions). EXAM: BP 130/86 Ht 5' 8.25 (1.73m) Wt 255 lb (115.7kg) BMI 38.47 kg/(m2). GENERAL: pleasant, female in no apparent distress HEENT: Normocephalic, atraumatic, mucus membranes moist, and no lesions NECK: Supple, full range of motion, no adenopathy, and thyroid normal DERMATOLOGY: Normal, without lesions, non-icteric, and non-hirsute BREAST: soft, non-tender, symmetric, no dominant mass, normal nipple-areolar complex, no lymphadenopathy, and no nipple discharge ABDOMEN: soft, non-tender, and no masses PELVIC: external genitalia normal, normal Bartholin's glands, urethra, [place]'s glands, no vulvar lesions, good vaginal support, physiologic di (more content not included)... Normal [facility] CNOVon 05-28-2024 CNOV Office Visit (FAMPWS ) MARY REYES ([id number]) 1950 F Date Time Provider Department 05/28/24 10:20 AM NESTOR CROWE During your visit today, we recorded the following information about you: Pulse Respiration Blood pressure Weight 59/minute 14/minute 110/70 115.8 kg Height 1.753 m Nestor Crowe PA-C 05/28/2024 11:03 AM Signed 05/28/2024 Patient presents with: Follow Up: [facility] ER follow up- SOB, elevated BP and elevated HR, SUBJECTIVE: This is a 73 year old that is here today for [facility] ED visit. She was having some tachycardia, elevated BP and SOB., seen in the office by myself and referred to ED. Changes on ECG noted in office. Cardiac enzymes and work up was negative. With recent travel concern for possible PE-d-dimer WNL for age per ED. CXR did show a left lower lobe infiltreate. Trated with doxycycline. Overall today feels good, no issue/concern. Has not had any more episodes. Previous visit: This is a 73 year old that is here today for Complaint(s) of feeling dizzy/faint and elevated BP this morning. Noted a little bit of SOB. , that has resolved. Denies any SOB coming back to the visit. She took BP at home this morning and BP was 120/101 and 119 pulse and then was jumping high then low. Repat BP was 116/78 with a 78 pulse per patient. [place] a little SOB with walking around. SOB has resolved, but still has a mild ESCOBAR and a little dizziness. Describes as lightheadedness. Denies worst ESCOBAR of life. They returned from [place] last night-drove there and back. Not on any hormone therapy, non-smoker. Denies pleurtic chest pain. No history of DVT/PE. Denies chest pain, pressure, nausea, vomiting, reflux, numbness, tingling. Denies leg swelling, calf pain. Non-smoker. No history of CHF. PAST MEDICAL HISTORY Diagnosis Date Arthritis left knee, back Chronic kidney disease, stage 3a (HCC) 05/26/2023 Complication of anesthesia N/V DDD (degenerative disc disease), lumbar Diulus, Cole Diverticulosis of colon (without mention of hemorrhage) 05/27 Diverticulosis Head injury 1971 left hand numbness, decrease coordination on right (dominant) IFG (impaired fasting glucose) 03/2017 a1c 5.8% Insomnia, unspecified improved Mild atherosclerosis of carotid artery 2016 internal, 0-19% Papanicolaou smear of cervix with atypical squamous cells of undetermined significance (ASC-US) 2009 ASCUS HPV negative, Dr Whiteside Snoring Tremor left hand Unspecified essential hypertension borderline ALLERGIES Vicodin [Hydrocodone-Acetamin ophen] and Vioxx [Rofecoxib] MEDICATIONS Current Outpatient Medications Medication Sig vit A,C,B-Dzeu-Gpzcdo (PRESERVISION AREDS) 2,148 mcg-113 mg-45 mg-17.4mg tab Take 1 tablet by mouth daily with breakfast. triamcinolone acetonide (KENALOG) 0.5 % cream Apply to affected area three times a day. metoprolol succinate ER (TOPROL XL) 50 mg 24 hr tablet Take 1 tablet by mouth once daily. gabapentin (NEURONTIN) 100 mg capsule Take 1-2 capsules by mouth two times a day as needed (neck and shoulder pain) for up to 30 days. methocarbamol (ROBAXIN) 500 mg tablet Take 1 tablet by mouth at bedtime as needed. metroNIDAZOLE (METROGEL) 0.75 % Topical Gel Apply to affected area twice daily. acetaminophen (TYLENOL EXTRA STRENGTH) 500 mg tablet Take 1,000 mg by mouth every 8 hours as needed. aspirin, enteric coated (ASPIRIN, ENTERIC COATED) 81 mg EC tablet Take 81 mg by mouth once daily. No current facility-administered medications for this visit. SOCIAL HISTORY Social History Tobacco Use Smoking status: Never Smokeless tobacco: Never Vaping Use Vaping status: Never Used Substance Use Topics Alcohol use: Yes Comment: 6 per year Drug use: No REVIEW OF SYSTEMS See HPI OBJECTIVE: BP 110/70 (BP Site: Left Arm, BP Position: Sitting, BP Cuff Size: Large Adult) Pulse (!) 59 Resp 14 Ht 175.3 cm (5' 9) Wt 115.8 kg (255 lb 6.4 oz) SpO2 94% BMI 37.72 kg/m? APPEARANCE Well appearing, alert, in no acute distress, well-hydrated, well nourished. HEART RRR with normal S1 and S2, no murmurs, LUNG clear to auscultation ASSESSMENT/PLAN: 1. Pneumonia of left lower lobe due to infectious organism - ICD9: 486, ICD10: J18.9 Symptoms resolving Repeat CXR in 4-6 weeks to confirm resolution Patient has been asymptomatic Consider holter monitor if notes elevated HR or palpitations. Reviewed red flags and when to seek care sooner. If SOB, would consider ECHO/stress None at this time, will wait. Keep f/u in July with PCP, sooner if any new or worsening symptoms. - XR CHEST 2V FRONTAL/LAT 2. Dizziness - ICD9: 780.4, ICD10: R42 Resolved. As above Reviewed red flags and when to seek care sooner in ED 3. Hypertension, essential - ICD9: 401.9, ICD10: I10 - Controlled - Recommend home blood pressure monitoring, to bring (more content not included)... Normal [facility] 12 Lead EKGon 05-07-2024 12 Lead EKG [facility] Cardiovascular Services [address] [place] [address] 12 Lead EKG 05/07/24 1556 MR#: [id number] Acct: [id number] Name: MARY REYES Rep #: [id number] : 1950 73 From: Scooter Cespedes MD Attending Dr: Status: DEP ER Ordering Dr: Cameron Bermudez MD Date: 05/07/24 Location: ED Sex: F C Admitted: Test Reason : SOB/CP Blood Pressure : / mmHG Vent. Rate : 054 BPM Atrial Rate : 054 BPM P-R Int : 194 ms QRS Dur : 076 ms QT Int : 454 ms P-R-T Axes : 041 -46 017 degrees QTc Int : 430 ms Sinus bradycardia Left axis deviation Cannot rule out Inferior infarct , age undetermined Abnormal ECG Confirmed by Scooter Cespedes ([id number]), society editor KATHLEEN WOODS ([id number]) on 05/08/2024 9:32:18 AM Referred By: Confirmed By:Scooter Cespedes 05/08/24 0932 Date Scooter Cespedes MD CC: Dr. Cameron Bermudez MD; Dr. Pete Morejon DO Signed Normal [facility] Basic Metabolic Profile (BMP )on 05-07-2024 BUN/CRE 16.1 RATIO Normal 05-12 [facility] Comment on above: Order Comment: 'TROP ' Serial specimen #1, #2 or #3: 1 Performed By: #### L 100.0100, L500.2500, L501.4020, L300.8000 #### [facility] Laboratory [address] [place], [address] CA,Total 9.3 mg/dL Normal 8.5-10.1 [facility] Comment on above: Order Comment: 'TROP ' Serial specimen #1, #2 or #3: 1 Performed By: #### L 100.0100, L500.2500, L501.4020, L300.8000 #### [facility] [address] [place], [address] Chloride [Moles/Vol] 111 mmol/L High 98-107 [facility] Comment on above: Order Comment: 'TROP ' Serial specimen #1, #2 or #3: 1 Performed By: #### L 100.0100, L500.2500, L501.4020, L300.8000 #### [facility] [address] [place], [address] CO2 [Moles/Vol] 27.0 mmol/L Normal 21.0-32.0 [facility] Comment on above: Order Comment: 'TROP ' Serial specimen #1, #2 or #3: 1 Performed By: #### L 100.0100, L500.2500, L501.4020, L300.8000 #### [facility] [address] [place], [address] Creatinine [Mass/Vol] 0.87 mg/dL Normal 0.55-1.02 [facility] Comment on above: Order Comment: 'TROP ' Serial specimen #1, #2 or #3: 1 Result Comment: The validity of the calculated GFR GFRAA in patients over 70 years has not been determined. Clinical correlation is essential. Performed By: #### L 100.0100, L500.2500, L501.4020, L300.8000 #### [facility] [address] [place], [address] ECRCL 78.01 ml/min Normal [facility] Comment on above: Order Comment: 'TROP ' Serial specimen #1, #2 or #3: 1 Performed By: #### L 100.0100, L500.2500, L501.4020, L300.8000 #### [facility] [address] [place], [address] EST GFR - AA 82 mL/min Normal >60 [facility] Comment on above: Order Comment: 'TROP ' Serial specimen #1, #2 or #3: 1 Result Comment: Afri can Ivorian GFR Calc Performed By: #### L 100.0100, L500.2500, L501.4020, L300.8000 #### [facility] [address] [place], [address] GAP 4 Low 5-15 [facility] Comment on above: Order Comment: 'TROP ' Serial specimen #1, #2 or #3: 1 Performed By: #### L 100.0100, L500.2500, L501.4020, L300.8000 #### [facility] [address] [place], [address] GFR/1.73 sq M.predicted among non-blacks MDRD (S/P/Bld) [Vol rate/Area] 68 mL/min/{1.73_m2} Normal >60 [facility] Comment on above: Order Comment: 'TROP ' Serial specimen #1, #2 or #3: 1 Result Comment: Non- GFR Calc Performed By: #### L 100.0100, L500.2500, L501.4020, L300.8000 #### [facility] [address] [place], [address] Glucose [Mass/Vol] 86 mg/dL Normal 74-106 [facility] Comment on above: Order Comment: 'TROP ' Serial specimen #1, #2 or #3: 1 Performed By: #### L 100.0100, L500.2500, L501.4020, L300.8000 #### [facility] [address] [place], [address] Potassium [Moles/Vol] 4.1 mmol/L Normal 3.5-5.1 [facility] Comment on above: Order Comment: 'TROP ' Serial specimen #1, #2 or #3: 1 Performed By: #### L 100.0100, L500.2500, L501.4020, L300.8000 #### [facility] [address] [place], [address] Sodium [Moles/Vol] 142 mmol/L Normal 136-145 [facility] Comment on above: Order Comment: 'TROP ' Serial specimen #1, #2 or #3: 1 Performed By: #### L 100.0100, L500.2500, L501.4020, L300.8000 #### [facility] [address] [place], [address] Urea nitrogen [Mass/Vol] 14 mg/dL Normal 7-18 [facility] Comment on above: Order Comment: 'TROP ' Serial specimen #1, #2 or #3: 1 Performed By: #### L 100.0100, L500.2500, L501.4020, L300.8000 #### [facility] [address] [place], [address] CBC W/Diff, Automatedon 10-1 Absolute Lymph 1.48 X10 3/uL Normal 0.83-4.51 [facility] Comment on above: Performed By: #### L 100.0100, L500.2500, L501.4020, L300.8000 #### [facility] [address] [place], [address] Absolute Neut 4.6 X10 3/uL Normal 2.0-7.7 [facility] Comment on above: Performed By: #### L 100.0100, L500.2500, L501.4020, L300.8000 #### [facility] [address] [place], [address] Basophils/100 WBC (Bld) 0.8 % Normal 0-1 [facility] Comment on above: Performed By: #### L 100.0100, L500.2500, L501.4020, L300.8000 #### [facility] [address] [place], [address] Eosinophils/100 WBC (Bld) 4.0 % Normal 0-5 [facility] Comment on above: Performed By: #### L 100.0100, L500.2500, L501.4020, L300.8000 #### [facility] [address] [place], [address] Erythrocyte distribution width (RBC) [Ratio] 13.3 % Normal 11.6-14.6 [facility] Comment on above: Performed By: #### L 100.0100, L500.2500, L501.4020, L300.8000 #### [facility] [address] [place], [address] Hematocrit (Bld) [Volume fraction] 44.4 % Normal 37-47 [facility] Comment on above: Performed By: #### L 100.0100, L500.2500, L501.4020, L300.8000 #### [facility] [address] [place], [address] Hemoglobin (Bld) [Mass/Vol] 14.1 g/dL Normal 12.0-15.0 [facility] Comment on above: Performed By: #### L 100.0100, L500.2500, L501.4020, L300.8000 #### [facility] [address] [place], [address] IG% 0.400 Normal 0.0-0.9 [facility] Comment on above: Result Comment: IG% - Immature Granulocytes (promyelocytes, myelocytes and metamyelocytes) > 1% indicates that a LEFT SHIFT is Present. Performed By: #### L 100.0100, L500.2500, L501.4020, L300.8000 #### [facility] [address] [place], [address] Lymphocytes/100 WBC (Bld) 20.4 % Normal 19-41 [facility] Comment on above: Performed By: #### L 100.0100, L500.2500, L501.4020, L300.8000 #### [facility] [address] [place], [address] MCH (RBC) [Entitic mass] 27.3 pg Normal 27.0-32.0 [facility] Comment on above: Performed By: #### L 100.0100, L500.2500, L501.4020, L300.8000 #### [facility] [address] [place], [address] MCHC (RBC) [Mass/Vol] 31.8 g/dL Low 32-36 [facility] Comment on above: Performed By: #### L 100.0100, L500.2500, L501.4020, L300.8000 #### [facility] [address] [place], [address] MCV (RBC) [Entitic vol] 86.0 fL Normal 81-99 [facility] Comment on above: Performed By: #### L 100.0100, L500.2500, L501.4020, L300.8000 #### [facility] [address] [place], [address] Monocytes/100 WBC (Bld) 10.8 % High 0-10 [facility] Comment on above: Performed By: #### L 100.0100, L500.2500, L501.4020, L300.8000 #### [facility] [address] [place], [address] Neutrophils/100 WBC (Bld) 63.6 % Normal 47-70 [facility] Comment on above: Performed By: #### L 100.0100, L500.2500, L501.4020, L300.8000 #### [facility] [address] [place], [address] Nucleated RBC (Bld) [#/Vol] 0 10*3/uL Normal 0-5 [facility] Comment on above: Performed By: #### L 100.0100, L500.2500, L501.4020, L300.8000 #### [facility] [address] [place], [address] Platelet mean volume (Bld) [Entitic vol] 11.4 fL Normal 6.2-12.0 [facility] Comment on above: Performed By: #### L 100.0100, L500.2500, L501.4020, L300.8000 #### [facility] [address] [place], [address] Platelets (Bld) [#/Vol] 295 10*3/uL Normal 150-450 [facility] Comment on above: Performed By: #### L 100.0100, L500.2500, L501.4020, L300.8000 #### [facility] [address] [place], [address] RBC (Bld) [#/Vol] 5.16 10*6/uL Normal 4.2-5.4 [facility] Comment on above: Performed By: #### L 100.0100, L500.2500, L501.4020, L300.8000 #### [facility] [address] [place], [address] RDW SD 41.1 fl Normal 35.1-43.9 [facility] Comment on above: Performed By: #### L 100.0100, L500.2500, L501.4020, L300.8000 #### [facility] [address] [place], [address] WBC (Bld) [#/Vol] 7.2 10*3/uL Normal 4.4-11.0 [facility] Comment on above: Performed By: #### L 100.0100, L500.2500, L501.4020, L300.8000 #### [facility] [address] [place], [address] CNOVon 05-07-2024 [facility] MARY REYES ([id number]) 1950 F Date Time Provider Department 05/07/24 1:20 PM NESTOR CROWE During your visit today, we recorded the following information about you: Pulse Respiration Blood pressure Weight 63/minute 14/minute 114/72 115.2 kg Height 1.753 m Nestor Crowe PA-C 05/08/2024 10:25 AM Signed 05/07/2024 Patient presents with: Same Day Appointment: elevated blood pressure and SOB, h/a, dizzy SUBJECTIVE: This is a 73 year old that is here today for Complaint(s) of feeling dizzy/faint and elevated BP this morning. Noted a little bit of SOB. , that has resolved. Denies any SOB coming back to the visit. She took BP at home this morning and BP was 120/101 and 119 pulse and then was jumping high then low. Repat BP was 116/78 with a 78 pulse per patient. [place] a little SOB with walking around. SOB has resolved, but still has a mild ESCOBAR and a little dizziness. Describes as lightheadedness. Denies worst ESCOBAR of life. They returned from [place] last night-drove there and back. Not on any hormone therapy, non-smoker. Denies pleurtic chest pain. No history of DVT/PE. Denies chest pain, pressure, nausea, vomiting, reflux, numbness, tingling. Denies leg swelling, calf pain. Non-smoker. No history of CHF. PAST MEDICAL HISTORY Diagnosis Date Arthritis left knee, back Chronic kidney disease, stage 3a (HCC) 05/26/2023 Complication of anesthesia N/V DDD (degenerative disc disease), lumbar Diulus, Cole Diverticulosis of colon (without mention of hemorrhage) 05/27 Diverticulosis Head injury 1971 left hand numbness, decrease coordination on right (dominant) IFG (impaired fasting glucose) 03/2017 a1c 5.8% Insomnia, unspecified improved Mild atherosclerosis of carotid artery 2016 internal, 0-19% Papanicolaou smear of cervix with atypical squamous cells of undetermined significance (ASC-US) 2009 ASCUS HPV negative, Dr Whiteside Snoring Tremor left hand Unspecified essential hypertension borderline ALLERGIES Vicodin [Hydrocodone-Acetamin ophen] and Vioxx [Rofecoxib] MEDICATIONS Current Outpatient Medications Medication Sig triamcinolone acetonide (KENALOG) 0.5 % cream Apply to affected area three times a day. metoprolol succinate ER (TOPROL XL) 50 mg 24 hr tablet Take 1 tablet by mouth once daily. gabapentin (NEURONTIN) 100 mg capsule Take 1-2 capsules by mouth two times a day as needed (neck and shoulder pain) for up to 30 days. methocarbamol (ROBAXIN) 500 mg tablet Take 1 tablet by mouth at bedtime as needed. metroNIDAZOLE (METROGEL) 0.75 % Topical Gel Apply to affected area twice daily. acetaminophen (TYLENOL EXTRA STRENGTH) 500 mg tablet Take 1,000 mg by mouth every 8 hours as needed. aspirin, enteric coated (ASPIRIN, ENTERIC COATED) 81 mg EC tablet Take 81 mg by mouth once daily. No current facility-administered medications for this visit. SOCIAL HISTORY Social History Tobacco Use Smoking status: Never Smokeless tobacco: Never Vaping Use Vaping status: Never Used Substance Use Topics Alcohol use: Yes Comment: 6 per year Drug use: No REVIEW OF SYSTEMS See HPI OBJECTIVE: BP 114/72 (BP Site: Left Arm, BP Position: Sitting, BP Cuff Size: Large Adult) Pulse 63 Resp 14 Ht 175.3 cm (5' 9) Wt 115.2 kg (253 lb 15.5 oz) SpO2 95% BMI 37.50 kg/m? APPEARANCE Well appearing, alert, in no acute distress, well-hydrated, well nourished. EYES PERRLA, conjunctiva and sclera normal. NECK Supple, no adenopathy; thyroid symmetric, normal size, no bruits HEART RRR with normal S1 and S2, no murmurs, no gallops, no JVD appreciated LUNG clear to auscultation, No wheezing, rhonchi, rales. EXTREMITIES Extremities normal, No deformities, No skin discoloration, + JERAD Trace edema in ankle JERAD. No calf TTP, no erythema, warmth, Negative Homans'. and Normal pulses bilaterally. Neuro:Gait normal. Reflexes normal and symmetric. Sensation grossly intact. CN intact. ASSESSMENT/PLAN: 1. Dizziness - ICD9: 780.4, ICD10: R42 (primary diagnosis) Resolved currently - ECG COMPLETE - BASIC METABOLIC PANEL - COMPLETE BLOOD COUNT AND DIFFERENTIAL - NT PRO BNP - D-DIMER - XR CHEST 2V FRONTAL/LAT 2. SOB (shortness of breath) - ICD9: 786.05, ICD10: R06.02 Resolved currently. - ECG COMPLETE - BASIC METABOLIC PANEL - COMPLETE BLOOD COUNT AND DIFFERENTIAL - NT PRO BNP - D-DIMER, trace JERAD LE ankle, otherwise no unilateral edema, negative Homans' JERAD, no chest pain, pleuritic chest pain. - XR CHEST 2V FRONTAL/LAT *Reviewing ECG with supervising physician-Dr. Frias, subtle changes in anterior leads-advise ED for further evaluation. Patient declines squad. will drive over for further evaluation. The patient indicates understanding of these issues and agrees with the plan. Nestor Crowe PA-C (more content not included)... Normal [facility] MARY REYES ([id number]) 1950 F Date Time Provider Department 05/07/24 12:45 PM RAMON DAVIS [facility] During your visit today, we recorded the following information about you: Ramon Davis PA 05/07/2024 12:37 PM Signed 73-year-old female presents for occasional shortness of breath starting this morning. Patient states she got up today and felt little short of breath and little bit dizzy. No chest pain. She denies any palpitations. States she has family history of A-fib. She was concerned she might be in it. She did take her blood pressure at home. She states 1 reading was high, 1 reading was normal, so wanted to come in and be checked out. Recommended evaluation with family practice. We were able to schedule the patient an appointment at 1:20 PM. Patient agreeable. No acute distress at this time. Normal gait. Heart regular rate and rhythm on my exam. Allergies As of Date: 05/07/2024 Noted Allergy Reaction VICODIN (HYDROCODONE-ACETAMIN OPHE*03/25/2011 2 - Rash VIOXX (ROFECOXIB) 03/18/2005 8 - GI Upset Date Reviewed: 05/26/2023 Reviewed by: Mary Chavez LPN - Fully Assessed Primary Visit Diagnosis:Procedure not carried out [Z53.9] Prescriptions as of 05/07/2024 - triamcinolone acetonide (KENALOG) 0.5 % cream Apply to affected area three times a day. - metoprolol succinate ER (TOPROL XL) 50 mg 24 hr tablet Take 1 tablet by mouth once daily. - gabapentin (NEURONTIN) 100 mg capsule Take 1-2 capsules by mouth two times a day as needed (neck and shoulder pain) for up to 30 days. - methocarbamol (ROBAXIN) 500 mg tablet Take 1 tablet by mouth at bedtime as needed. - metroNIDAZOLE (METROGEL) 0.75 % Topical Gel Apply to affected area twice daily. - acetaminophen (TYLENOL EXTRA STRENGTH) 500 mg tablet Take 1,000 mg by mouth every 8 hours as needed. - aspirin, enteric coated (ASPIRIN, ENTERIC COATED) 81 mg EC tablet Take 81 mg by mouth once daily. 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] 01/27/2006 SYMPTOMATIC FEMALE CLIMACTERIC STATE [N95.1] 08/12/2008 ATROPHIC VAGINITIS [N95.2] 08/12/2008 SCREENING MAL NEOP-BREAST NOS [Z12.39] 08/12/2008 Cystocele, midline [N81.11] 08/12/2008 04/19/2011 Urgency of Urination [R39.15] 08/19/2009 Urticaria [L50.9] 03/10/2010 Rectocele [N81.6] 04/19/2011 Postmenopausal bleeding [N95.0] 04/19/2011 04/25/2012 ASCUS favor benign [R87.610] 04/19/2011 Chronic SI joint pain [M53.3, G89.29] 12/06/2011 SI (sacroiliac) joint dysfunction [M53.3] 12/06/2011 Lumbar spondylosis [M47.816] 12/06/2011 DDD (degenerative disc disease), lumbar [M51.36*12/06/2011 Lumbar radicular pain [M54.16] 12/06/2011 Lumbar facet arthropathy [M47.816] 12/06/2011 Essential hypertension [I10] Cystocele, midline [N81.11] 04/25/2012 Tremor [R25.1] Low serum HDL [R74.8] 04/19/2017 Impaired fasting glucose [R73.01] 04/19/2017 IFG (impaired fasting glucose) [R73.01] 03/24/2017 Arthritis of right knee [M17.11] 04/23/2018 Abnormal EKG [R94.31] 04/23/2018 Dyslipidemia [E78.5] 04/23/2018 Hypertension, essential [I10] 04/23/2018 LVH (left ventricular hypertrophy) [I51.7] 04/28/2021 Hyperlipidemia, mixed [E78.2] 04/28/2021 Hypoalbuminemia [E88.09] 04/28/2021 Other specified disorders of bone density and s*03/30/2022 Vitamin D deficiency [E55.9] 03/30/2022 Chronic kidney disease, stage 3a (HCC) [N18.31] 05/26/2023 Left hand paresthesia [R20.2] 05/26/2023 Acute pain of left shoulder [M25.512] 05/26/2023 Neck pain on left side [M54.2] 05/26/2023 Fatigue [R53.83] 05/26/2023 Localized swelling, mass and lump, neck [R22.1] 05/26/2023 Vitamin B12 deficiency [E53.8] 05/26/2023 Encounter Status:Closed by RAMON DAVIS on 05/07/24 Normal [facility] Chest 1 View (Portable)on Chest 1 View (Portable) [facility] Imaging Services [address] [place], [place] [address] [place] [address] Chest 1 View (Portable) MR#: [id number] Acct: [id number] Name: MARY REYES Rep #: [id number] : 1950 F 73 From: Zan John PCP: Dr. Pete Morejon, Status: REG ER Study: Chest 1 View (Portable) Date of Exam: 05/07/24 Exam# [id number] Ordering Dr: Cameron Bermudez MD [id number] STUDY: X-RAY CHEST REASON FOR EXAM: Female, 73 years old. chest pain TECHNIQUE: Single frontal view of the chest. COMPARISON: February 22, 2017 FINDINGS: Left lower lobe interstitial infiltrate. There is no demonstrated pleural abnormality. Normal size heart. Normal mediastinum and roshni. Normal visualized pulmonary arteries. Normal visualized aortic arch and descending thoracic aorta. Normal visualized thoracic spine. Normal visualized ribs, clavicles, and shoulders. There is no demonstrated abnormality of the visualized soft tissue structures of the upper abdomen. RAD/Chest 1 View (Portable) IMPRESSION: Left lower lobe interstitial infiltrate. Electronically Signed: Zan Arias MD at 16:24 EDT Reading Location ID and State: [facility] / [place] Tel , Service support , CC: Dr. Cameron Bermudez MD; Dr. Pete Morejon DO Colorectal Surgeon: Signed Normal [facility] D-Dimer Quantitative (DVT/PE )on 05-07-2024 D-DIMER QUANT 0.61 FEU/ug/m Invalid Interpretation Code 0.27-0.49 [facility] Comment on above: Order Comment: CRITI MIGUEL VALUE CALLED TO MICHAEL PELAYO 05/07/24 1622 Amanda Kota. RESULTS READ BACK BY SAME. Result Comment: D-Di demario ELEVATED (>0.49): Additional studies and clinical assessments are indicated to conclude diagnosis of: Deep Vein Thrombosis (DVT) or Pulmonary Embolism (PE) Performed By: #### L 100.0100, L500.2500, L501.4020, L300.8000 #### [facility] [address] [place], [address] [id number] 05-07-2024 ECG01 Ventricular Rate : 5 8 BPM Atrial Rate : 58 BPM P-R Interval : 182 ms QRS Duration : 74 ms Q-T Interval : 442 ms QTC Calculation([place]) : 433 ms Calculated P [place] : 41 degrees Calculated R [place] : -49 degrees Calculated T [place] : 26 degrees SINUS BRADYCARDIA WITH OCCASIONAL PREMATURE VENTRICULAR COMPLEXES LEFT AXIS DEVIATION LEFT ANTERIOR FASCICULAR BLOCK INFERIOR MYOCARDIAL INFARCTION , AGE UNDETERMINED POSSIBLE ANTERIOR MYOCARDIAL INFARCTION , AGE UNDETERMINED ABNORMAL ECG Confirmed by ELVIS ELISE DO ([id number]) on 05/08/2024 3:16:59 PM NAME : MARY REYES PID : [id number] : 1950 Gender : Female Race : ORD : Procedure Date : May 07 2024 12:31:14 Edit Date : May 08 2024 15:17:04 Diagnosis: SINUS BRADYCARDIA WITH OCCASIONAL PREMATURE VENTRICULAR COMPLEXES LEFT AXIS DEVIATION LEFT ANTERIOR FASCICULAR BLOCK INFERIOR MYOCARDIAL INFARCTION , AGE UNDETERMINED POSSIBLE ANTERIOR MYOCARDIAL INFARCTION , AGE UNDETERMINED ABNORMAL ECG Confirmed by ELVIS ELISE DO ([id number]) on 05/08/2024 3:16:59 PM Test Reason : Location : [facility] : [facility] Overread By : ELVIS ELISE DO Edited By : ELVIS ELISE DO Referred By : , Acquired by : Chino malhotra [facility] Emergency Department Summary on 05-07-2024 Emergency Department Summary [facility] Medical Records Department [address] [place] [address] Emergency Department Summary 05/07/24 MR#: [id number] Acct: [id number] Name: MARY REYES Rep #: [id number] : 1950 73 From: Cameron Bermudez MD PCP: Dr. Pete Morejon, Status:REG ER Location: ED HPI History of Present Illness Chief Complaint: Shortness of Breath Narrative Narrative: 73-year-old female presents with her because of heart palpitations and shortness of breath that she experienced this morning. She states she woke up this morning, and felt mildly short of br eath, no recent fevers or chills, no cough. She states by the time she got downstairs she was very winded short of breath. She also felt like she might be having her heart racing. She used a blood pressure cuff and while her blood pressure was okay, her pulse ranged anywhere from normal to as high as the 120s in bpm. She states it would come back down to normal. She went to urgent care/[facility] and they told her that her heart sounded normal. She then went to her primary care provider and had an EKG performed and although there were changes, they sent her to the ED for further evaluation. There was concern for pulmonary embolism because she had a recent drive home from [place], 10 hours, although she and her state that every few hours they would get out of the car, and walk around, get gasoline or use the restroom, or switch drivers. She denies any leg swelling. She is on metoprolol for hypertension. [facility] Home Medications ???Medication ???Instructions ???Recorded ???Last Taken ???Type metoprolol succinate 50 mg 50 mg PO DAILY bp 09/18/18 03/27/19 History tablet,extended release 24 hr (Toprol XL) albuterol sulfate 90 mcg/actuation 1 - 2 puff inhalation Q4H PRN PRN 05/07/24 Unknown Rx aerosol inhaler (Ventolin HFA) Wheezing #1 ea aspirin 81 mg tablet,delayed 81 mg PO DAILY 05/07/24 Unknown History release (Adult Aspirin Regimen) doxycycline hyclate 100 mg capsule 100 mg PO BID #14 caps 05/07/24 Unknown Rx Allergy/AdvReac Type Severity Reaction Status Date / Time hydrocodone (From Vicodin) Allergy Rash Verified 05/07/24 14:26 rofecoxib (From Vioxx) AdvReac Upset Verified 05/07/24 14:26 Stomach Social History Smoking Status: Never smoker ROS ROS ED ROS Narrative Constitutional: No fever, no chills. HEENT: No sore throat. No neck pain. No loss of vision. No rhinorrhea. Cardiovascular: No chest pain. Positive heart racing/palpitations. No pedal edema. Respiratory: No cough, positive dyspnea on exertion/shortness of breath. Abdominal: No abdominal pain. No nausea. No vomiting. Genitourinary: No dysuria. No hematuria. Musculoskeletal: No myalgias. No arthralgias. Neurologic: No headaches. No dizziness. No lightheadedness. Skin: No rash. No change in color. Psychiatric: No depression. No anxiety. EXAM Physical Exam Narrative Exam Narrative: Afebrile. Vital signs noted. HEENT: Normocephalic. Atraumatic. PERRL, EOMI. Neck soft and supple. No point tenderness or step off. Cardiovascular: Regular rate and rhythm with intermittent bradycardia. No murmurs, rubs, or gallops appreciated. Respiratory: No tachypnea. Lungs clear to auscultation bilaterally. Gastrointestinal: Abdomen soft, nontender, with normoactive bowel sounds. No rebound or guarding. Neurological: Awake. Alert. Nonfocal, nonlateralizing. Skin: No rash. Normal color. No pallor. Musculoskeletal: No pedal edema. Full range of motion extremities. Const Vital Signs: 05/07/24 14:26 05/07/24 15:10 05/07/24 16:03 Temperature 96.9 F L Temperature Source Temporal Pulse Rate 59 L Respiratory Rate 18 Respiratory Effort Short of Breath Blood Pressure 134/79 H Blood Pressure Mean 97 Pulse Ox 96 Oxygen Delivery Method Room Air Room Air Room Air 05/07/24 16:26 Temperature Temperature Source Pulse Rate 60 Respiratory Rate 18 Respiratory Effort Blood Pressure 139/70 H Blood Pressure Mean 93 Pulse Ox 96 Oxygen Delivery Method Room Air MDM MDM MDM Narrative Medical decision making narrative: Differential diagnosis includes but not limited to atrial fibrillation versus pulmonary embolism versus ACS. History and physical does not support ischemic pain and she is having more palpitations, not really having chest pain. I doubt CHF or COPD because she does not have a history of this. I do feel that she could be ruled out with a single troponin, and I will look for electrolyte imbalance as a cause of her palpitations and reported high heart rate. She is now bradycardic which I think is secondary to her metoprolol use. D-dimer will be obtained to help rule out pulmonary embolism. EK (more content not included)... Normal [facility] L501.4020on 05-07-2024 TROPONIN-I HS 42 pg/mL Normal 3.0-54.0 [facility] Comment on above: Order Comment: 'TROP ' Serial specimen #1, #2 or #3: 1 Result Comment: Beulah keys Note: New Test Units and Gender Specific Reference Ranges. For more information see Policy Stat Procedure [place] High Sensitivity Troponin (TNIH) and attachments. Performed By: #### L 100.0100, L500.2500, L501.4020, L300.8000 #### [facility] [address] [place], [address] [facility] 05-01-2024 [facility] MARY REYES ([id number]) 1950 F Date Time Provider Department 05/01/24 [facility] During your visit today, we recorded the following information about you: Pete Morejon DO 05/01/2024 10:25 PM Signed Please inform patient that her mammogram is normal/negative. She will need routine screening mammogram in 1 year. Thanks GAYLE Hammer [place], MA 05/02/2024 8:28 AM Signed Left message to return call JEANNIE Martínez [place], MA 05/03/2024 8:55 AM Signed 2nd attempt. Left message to return call JEANNIE Martínez Laurie Lynn, LPN 05/03/2024 9:07 AM Signed Detailed VM left on pt's identified voicemail of information below. Gabi Ramos LPN Allergies As of Date: 05/01/2024 Noted Allergy Reaction VICODIN (HYDROCODONE-ACETAMIN OPHE*03/25/2011 2 - Rash VIOXX (ROFECOXIB) 03/18/2005 8 - GI Upset Date Reviewed: 05/26/2023 Reviewed by: Mary Chavez LPN - Fully Assessed Prescriptions as of 05/03/2024 - triamcinolone acetonide (KENALOG) 0.5 % cream Apply to affected area three times a day. - metoprolol succinate ER (TOPROL XL) 50 mg 24 hr tablet Take 1 tablet by mouth once daily. - gabapentin (NEURONTIN) 100 mg capsule Take 1-2 capsules by mouth two times a day as needed (neck and shoulder pain) for up to 30 days. - methocarbamol (ROBAXIN) 500 mg tablet Take 1 tablet by mouth at bedtime as needed. - metroNIDAZOLE (METROGEL) 0.75 % Topical Gel Apply to affected area twice daily. - acetaminophen (TYLENOL EXTRA STRENGTH) 500 mg tablet Take 1,000 mg by mouth every 8 hours as needed. - aspirin, enteric coated (ASPIRIN, ENTERIC COATED) 81 mg EC tablet Take 81 mg by mouth once daily. 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] 01/27/2006 SYMPTOMATIC FEMALE CLIMACTERIC STATE [N95.1] 08/12/2008 ATROPHIC VAGINITIS [N95.2] 08/12/2008 SCREENING MAL NEOP-BREAST NOS [Z12.39] 08/12/2008 Cystocele, midline [N81.11] 08/12/2008 04/19/2011 Urgency of Urination [R39.15] 08/19/2009 Urticaria [L50.9] 03/10/2010 Rectocele [N81.6] 04/19/2011 Postmenopausal bleeding [N95.0] 04/19/2011 04/25/2012 ASCUS favor benign [R87.610] 04/19/2011 Chronic SI joint pain [M53.3, G89.29] 12/06/2011 SI (sacroiliac) joint dysfunction [M53.3] 12/06/2011 Lumbar spondylosis [M47.816] 12/06/2011 DDD (degenerative disc disease), lumbar [M51.36*12/06/2011 Lumbar radicular pain [M54.16] 12/06/2011 Lumbar facet arthropathy [M47.816] 12/06/2011 Essential hypertension [I10] Cystocele, midline [N81.11] 04/25/2012 Tremor [R25.1] Low serum HDL [R74.8] 04/19/2017 Impaired fasting glucose [R73.01] 04/19/2017 IFG (impaired fasting glucose) [R73.01] 03/24/2017 Arthritis of right knee [M17.11] 04/23/2018 Abnormal EKG [R94.31] 04/23/2018 Dyslipidemia [E78.5] 04/23/2018 Hypertension, essential [I10] 04/23/2018 LVH (left ventricular hypertrophy) [I51.7] 04/28/2021 Hyperlipidemia, mixed [E78.2] 04/28/2021 Hypoalbuminemia [E88.09] 04/28/2021 Other specified disorders of bone density and s*03/30/2022 Vitamin D deficiency [E55.9] 03/30/2022 Chronic kidney disease, stage 3a (HCC) [N18.31] 05/26/2023 Left hand paresthesia [R20.2] 05/26/2023 Acute pain of left shoulder [M25.512] 05/26/2023 Neck pain on left side [M54.2] 05/26/2023 Fatigue [R53.83] 05/26/2023 Localized swelling, mass and lump, neck [R22.1] 05/26/2023 Vitamin B12 deficiency [E53.8] 05/26/2023 Encounter Status:Closed by GABI RAMOS on 05/03/24 Normal [facility] Breast Screeningon 2023 IMPRESSION: There is no mammographic evidence of malignancy in either breast. Routine follow-up mammogram in 1 year is recommended. BI-RADS Category 1: Negative RISK: Based on the Tyrer-Cuzick (TC) risk assessment model, this patient has a 6.2% lifetime risk of developing breast cancer, meaning they are at average risk for developing breast cancer. However, this is only an estimate based on available history provided on the patient's questionnaire. We encourage all patients talk with their providers about these results, further recommendations for managing breast health, and appropriate supplemental screening options if the patient has dense breast tissue. Interpreting Radiologist: Charlene Espino M.D. Electronically signed on: 05/01/2024 Colorectal Surgeon: BIANKA Peña Date/Time: Apr 30 2024 11:26A Dictated by: CHARLENE ESPINO MD This examination was interpreted and the report reviewed and electronically signed by: CHARLENE ESPINO MD on May 01 2024 1:14PM [facility] DIVISION OF RADIOLOGY * * *Final Report* * * DATE OF EXAM: Apr 30 2024 11:56AM [facility] 05[facility] - [facility] SCREENING / PROCEDURE REASON: Encounter for screening mammogram for malignant neoplasm of breast * * * * Physician Interpretation * * * * RESULT: [place] [id number] HISTORY: Patient is 73 years old and is seen for screening and is asymptomatic in both breasts. The patient has no personal history of cancer. COMPARISON STUDIES: The present examination has been compared to prior imaging studies dated 04/01/2020 (mammogram), 05/12/2021 (mammogram) and 05/17/2022 (mammogram). MAMMOGRAM TECHNIQUE: The study was acquired using full field digital technology and interpreted from soft copy. Digital Breast Tomosynthesis (DBT) images were obtained and used to assist in the interpretation of this examination. Computer-aided detection was utilized by the radiologist in the interpretation of this examination. MAMMOGRAM FINDINGS: There are scattered areas of fibroglandular density. No suspicious masses, calcifications or other abnormalities are seen in either breast. There are no significant changes from the prior study. DIVISION OF RADIOLOGY Provider, [facility] - 05/01/2024 * * *Final Report* * * DATE OF EXAM: Apr 30 2024 11:56AM [facility] 05[facility] - [place] SCREENING / PROCEDURE REASON: Encounter for screening mammogram for malignant neoplasm of breast * * * * Physician Interpretation * * * * RESULT: [facility] [address] [place] [address] HISTORY: Patient is 73 years old and is seen for screening and is asymptomatic in both breasts. The patient has no personal history of cancer. COMPARISON STUDIES: The present examination has been compared to prior imaging studies dated 04/01/2020 (mammogram), 05/12/2021 (mammogram) and 05/17/2022 (mammogram). MAMMOGRAM TECHNIQUE: The study was acquired using full field digital technology and interpreted from soft copy. Digital Breast Tomosynthesis (DBT) images were obtained and used to assist in the interpretation of this examination. Computer-aided detection was utilized by the radiologist in the interpretation of this examination. MAMMOGRAM FINDINGS: There are scattered areas of fibroglandular density. No suspicious masses, calcifications or other abnormalities are seen in either breast. There are no significant changes from the prior study. IMPRESSION IMPRESSION: There is no mammographic evidence of malignancy in either breast. Routine follow-up mammogram in 1 year is recommended. BI-RADS Category 1: Negative RISK: Based on the Tyrer-Cuzick (TC) risk assessment model, this patient has a 6.2% lifetime risk of developing breast cancer, meaning they are at average risk for developing breast cancer. However, this is only an estimate based on available history provided on the patient's questionnaire. We encourage all patients talk with their providers about these results, further recommendations for managing breast health, and appropriate supplemental screening options if the patient has dense breast tissue. Interpreting Radiologist: Charlene Espino M.D. Electronically signed on: 05/01/2024 Colorectal Surgeon: BIANKA Transcribe Date/Time: Apr 30 2024 11:26A Dictated by: CHARLENE ESPINO MD This examination was interpreted and the report reviewed and electronically signed by: CHARLENE ESPINO MD on May 01 2024 1:14PM EST [facility] MG Breast ScreeningOrdered B y: [facility] Provider on 05-01-2024 [facility] [place] SCREENING[place] 04-30-2024 [place] SCREENING * * *Final Report* * * DATE OF EXAM: Apr 30 2024 11:56AM [facility] 05[facility] - [facility] SCREENING / PROCEDURE REASON: Encounter for screening mammogram for malignant neoplasm of breast * * * * Physician Interpretation * * * * RESULT: [place] [address] [place] [id number] HISTORY: Patient is 73 years old and is seen for screening and is asymptomatic in both breasts. The patient has no personal history of cancer. COMPARISON STUDIES: The present examination has been compared to prior imaging studies dated 04/01/2020 (mammogram), 05/12/2021 (mammogram) and 05/17/2022 (mammogram). MAMMOGRAM TECHNIQUE: The study was acquired using full field digital technology and interpreted from soft copy. Digital Breast Tomosynthesis (DBT) images were obtained and used to assist in the interpretation of this examination. Computer-aided detection was utilized by the radiologist in the interpretation of this examination. MAMMOGRAM FINDINGS: There are scattered areas of fibroglandular density. No suspicious masses, calcifications or other abnormalities are seen in either breast. There are no significant changes from the prior study. IMPRESSION: There is no mammographic evidence of malignancy in either breast. Routine follow-up mammogram in 1 year is recommended. BI-RADS Category 1: Negative RISK: Based on the Tyrer-Cuzick (TC) risk assessment model, this patient has a 6.2% lifetime risk of developing breast cancer, meaning they are at average risk for developing breast cancer. However, this is only an estimate based on available history provided on the patient's questionnaire. We encourage all patients talk with their providers about these results, further recommendations for managing breast health, and appropriate supplemental screening options if the patient has dense breast tissue. Interpreting Radiologist: Charlene Espino M.D. Electronically signed on: 05/01/2024 Colorectal Surgeon: BIANKA Transcribe Date/Time: Apr 30 2024 11:26A Dictated by: CHARLENE ESPINO MD This examination was interpreted and the report reviewed and electronically signed by: CHARLENE ESPINO MD on May 01 2024 1:14PM EST [id number] Normal [facility] Breast Screeningon 2023 Radiology Study observation (narrative) [facility] CT NECK SOFT TISSUE W IVCONo n 05-31-2023 [facility] No Panel Informationon 05-26 [facility] DXA-AXIAL SKELETONon 022 [facility] [place] SCREENINGon 05-17-2022 [facility] PELVIC US WHIon 05-09-2022 [facility] Vital Signs Date Time Vital Sign Value Performing Clinician Facility 12-11-2024 10:36-0400 Body height 175.[address] Pete Morejon DO Work Phone: [facility] 12-11-2024 10:36-0400 Body mass index (BMI) [Ratio] 36.9 kg/m2 Dr. Pete Morejon DO Work Phone: [facility] 12-11-2024 10:36-0400 Body weight 113.[address] Pete Morejon DO Work Phone: [phone] [place] [address] 12-11-2024 10:36-0400 Diastolic blood pressure 59 mm[Hg] Dr. Pete Morejon DO Work Phone: [phone] [place] [address] 12-11-2024 10:36-0400 Heart rate 62 /min Dr. Pete Morejon DO Work Phone: [phone])891-784079 [place] [address] 12-11-2024 10:36-0400 Respiratory rate 16 /min Dr. Pete Morejon DO Work Phone: [facility] 12-11-2024 10:36-0400 Systolic blood pressure 103 mm[Hg] Dr. Pete Morejon DO Work Phone: [facility] 10-21-2024 14:26-0400 Body mass index (BMI) [Ratio] 37.89 kg/m2 Saul Gil Jr., MD Work Phone: [facility] 10-21-2024 14:26-0400 Body weight 113.85 kg Saul Gil Jr., MD Work Phone: [facility] 10-21-2024 14:26-0400 Diastolic blood pressure 81 mm[Hg] Saul Gil Jr., MD Work Phone: [facility] 10-21-2024 14:26-0400 Heart rate 58 /min Saul Gil Jr., MD Work Phone: [facility] 10-21-2024 14:26-0400 SaO2% (BldA) [Mass fraction] 95 % Saul Gil Jr., MD Work Phone: [facility] 10-21-2024 14:26-0400 Systolic blood pressure 128 mm[Hg] Saul Gil Jr., MD Work Phone: [facility] 09-02-2024 11:05-0500 Body mass index (BMI) [Ratio] 38.49 kg/m2 Gayle Jimenez MD Work Phone: [facility] 09-02-2024 11:05-0500 Body weight 115.67 kg Gayle Jimenez MD Work Phone: [facility] 09-02-2024 11:05-0500 Diastolic blood pressure 82 mm[Hg] Gayle Jimenez MD Work Phone: [facility] 09-02-2024 11:05-0500 Heart rate 63 /min Gayle Jimenez MD Work Phone: [facility] 09-02-2024 11:05-0500 SaO2% (BldA) [Mass fraction] 95 % Gayle Jimenez MD Work Phone: [facility] 09-02-2024 11:05-0500 Systolic blood pressure 133 mm[Hg] Gayle Jimenez MD Work Phone: [facility] 08-09-2024 10:30-0500 Respiratory rate 16 /min Thom Ruiz MD Work Phone: [facility] 08-09-2024 09:55-0500 Diastolic blood pressure 65 mm[Hg] Thom Ruiz MD Work Phone: [facility] 08-09-2024 09:55-0500 Heart rate 64 /min Thom Ruiz MD Work Phone: [facility] 08-09-2024 09:55-0500 SaO2% (BldA) [Mass fraction] 100 % Thom Ruiz MD Work Phone: [facility] 08-09-2024 09:55-0500 Systolic blood pressure 133 mm[Hg] Thom Ruiz MD Work Phone: [facility] 08-09-2024 08:52-0500 Body mass index (BMI) [Ratio] 38.5 kg/m2 Thom Ruiz MD Work Phone: [facility] 08-09-2024 08:52-0500 Body temperature 96.8 [degF] Thom Ruiz MD Work Phone: [facility] 08-09-2024 08:52-0500 Body weight 115.7 kg Thom Ruiz MD Work Phone: [facility] 07-30-2024 11:54-0500 Body mass index (BMI) [Ratio] 38.49 kg/m2 Pete Morejon DO Work Phone: [facility] 07-30-2024 11:54-0500 Body temperature 98.01 [degF] Pete Morejon DO Work Phone: [facility] 07-30-2024 11:54-0500 Body weight 115.67 kg Pete Morejon DO Work Phone: [facility] 07-30-2024 11:54-0500 Diastolic blood pressure 70 mm[Hg] Pete Morejon DO Work Phone: [facility] 07-30-2024 11:54-0500 Heart rate 84 /min Pete Morejon DO Work Phone: [facility] 07-30-2024 11:54-0500 Respiratory rate 20 /min Pete Morejon DO Work Phone: [facility] 07-30-2024 11:54-0500 Systolic blood pressure 126 mm[Hg] Pete Morejon DO Work Phone: [facility] 07-03-2024 15:02-0500 Body height 173.4 cm Savanah Henson MD Work Phone: [facility] 07-03-2024 15:02-0500 Body mass index (BMI) [Ratio] 38.49 kg/m2 Savanah Henson MD Work Phone: [facility] 07-03-2024 15:02-0500 Body weight 115.67 kg Savanah Henson MD Work Phone: [facility] 07-03-2024 15:02-0500 Diastolic blood pressure 86 mm[Hg] Savanah Henson MD Work Phone: [facility] 07-03-2024 15:02-0500 Systolic blood pressure 130 mm[Hg] Savanah Henson MD Work Phone: [facility] 05-28-2024 10:36-0500 Body height 175.3 cm Nestor Bogner PA-C Work Phone: [facility] 05-28-2024 10:36-0500 Body mass index (BMI) [Ratio] 37.72 kg/m2 Nestor Bogner PA-C Work Phone: [facility] 05-28-2024 10:36-0500 Body weight 115.85 kg Nestor Bogner PA-C Work Phone: [facility] 05-28-2024 10:36-0500 Diastolic blood pressure 70 mm[Hg] Nestor Bogner PA-C Work Phone: [facility] 05-28-2024 10:36-0500 Heart rate 59 /min Nestor Bogner PA-C Work Phone: [facility] 05-28-2024 10:36-0500 Respiratory rate 14 /min Nestor Bogner PA-C Work Phone: [facility] 05-28-2024 10:36-0500 SaO2% (BldA) [Mass fraction] 94 % Nestor Bogner PA-C Work Phone: [facility] 05-28-2024 10:36-0500 Systolic blood pressure 110 mm[Hg] Nestor Bogner PA-C Work Phone: [facility] 05-07-2024 13:06-0400 Body height 175.3 cm Nestor Bogner PA-C Work Phone: [facility] 05-07-2024 13:06-0400 Body mass index (BMI) [Ratio] 37.5 kg/m2 Nestor Bogner PA-C Work Phone: [facility] 05-07-2024 13:06-0400 Body weight 115.2 kg Nestor Bogner PA-C Work Phone: [facility] 05-07-2024 13:06-0400 Diastolic blood pressure 72 mm[Hg] Nestor Bogner PA-C Work Phone: [facility] 05-07-2024 13:06-0400 Heart rate 63 /min Nestor Bogner PA-C Work Phone: [facility] 05-07-2024 13:06-0400 Respiratory rate 14 /min Nestor Bogner PA-C Work Phone: [facility] 05-07-2024 13:06-0400 SaO2% (BldA) [Mass fraction] 95 % Nestor Bogner PA-C Work Phone: [facility] 05-07-2024 13:06-0400 Systolic blood pressure 114 mm[Hg] Nestor Bogner PA-C Work Phone: [facility] 05-26-2023 13:59-0400 Body height 177.5 cm Pete Morejon DO Work Phone: [facility] 05-26-2023 13:59-0400 Body temperature 96.69 [degF] Pete Morejon DO Work Phone: [facility] 05-26-2023 13:59-0400 Body weight 112.04 kg Pete Morejon DO Work Phone: [facility] 05-26-2023 13:59-0400 Diastolic blood pressure 80 mm[Hg] Pete Morejon DO Work Phone: [facility] 05-26-2023 13:59-0400 Heart rate 64 /min Pete Morejon DO Work Phone: [facility] 05-26-2023 13:59-0400 Respiratory rate 20 /min Pete Morejon DO Work Phone: [facility] 05-26-2023 13:59-0400 Systolic blood pressure 124 mm[Hg] Pete Morejon DO Work Phone: [facility] 03-30-2022 12:16-0400 Body temperature 97.5 [degF] Pete Morejon DO Work Phone: [facility] 03-30-2022 12:16-0400 Body weight 114.31 kg Pete Morejon DO Work Phone: [facility] 03-30-2022 12:16-0400 Diastolic blood pressure 70 mm[Hg] Pete Morejon DO Work Phone: [facility] 03-30-2022 12:16-0400 Heart rate 64 /min Pete Morejon DO Work Phone: [facility] 03-30-2022 12:16-0400 Respiratory rate 16 /min Pete Morejon DO Work Phone: [facility] 03-30-2022 12:16-0400 Systolic blood pressure 110 mm[Hg] Pete Morejon DO Work Phone: [facility] Encounters Encounter Date Encounter Type Care Provider Facility Start: 01-01-2025 ambulatory Virgil Woody Facility:[facility] Start: 12-24-2024 End: 12-24-2024 ambulatory QUEENIE SANDERS Facility:[facility] Start: 12-11-2024 End: 12-11-[address] Pete Morejon DO Work Phone: [facility] Work Phone: Start: 12-11-2024 End: 12-11-[address] Virgil Woody MD -Laboratory Work Phone: Start: 12-11-2024 End: 12-11-[address] Virgil Woody MD -[facility] Work Phone: Start: 12-11-2024 End: 12-11-[address] Pete Morejon DO Work Phone: [facility] Work Phone: Start: 12-10-2024 End: 12-11-2024 ambulatory QUEENIE SANDERS Facility:[facility] Start: 11-18-2024 End: 11-20-2024 Telephone encounter Saul Gil MD Work Phone: [facility] [place] Comment on above: Results Start: 11-04-2024 End: 11-04-[address] Pete Morejon DO Work Phone: [facility] Work Phone: Start: 11-04-2024 End: 11-04-[address] Saul Gil MD -Pulmonary Services/Neurology Work Phone: Start: 11-04-2024 End: 11-04-2024 ambulatory Saul Gil Facility:[facility] Start: 10-31-2024 End: 10-31-2024 ambulatory SAUL GIL JR Facility:[facility] Start: 10-31-2024 End: 10-31-2024 Subsequent hospital visit by physician Mri Radio [facility] (I-Stat/1.5t) Work Phone: Radiology Comment on above: Tremor [R25.1] Start: 10-21-2024 End: 10-21-2024 Patient encounter procedure Saul Gil MD Work Phone: Neurology Comment on above: Tremor (Primary Dx); History of traumatic brain injury; Diplopia; Incoordination; Abnormality of gait; Post traumatic seizure (HCC); Claustrophobia Start: 10-21-2024 End: 10-21-2024 ambulatory SAUL GIL JR Facility:[facility] Start: 10-16-2024 End: 10-17-2024 Telephone encounter Pete Morejon DO Work Phone: [facility] [place] Comment on above: Patient Update Start: 10-15-2024 End: 10-16-2024 ambulatory Pete Morejon DO Work Phone: [facility] [place] Comment on above: testing Start: 10-02-2024 End: 10-08-2024 Follow-up encounter Pete Lenzon DO Work Phone: [facility] [place] Comment on above: Results (Hematologis t/); Referral Request Start: 09-16-2024 End: 09-16-2024 ambulatory Pete Lenzon DO Work Phone: [facility] [place] Comment on above: New Prescription Start: 09-11-2024 End: 09-11-2024 Telephone encounter Gayle Jimenez MD Work Phone: [place] Provider Adult Start: 09-09-2024 End: 09-09-2024 ambulatory GAYLE JIMENEZ Facility:[facility] Start: 09-09-2024 End: 09-09-2024 Patient encounter procedure Gayle Jimenez MD Work Phone: General Surgery Comment on above: Abnormal ultrasound of thyroid gland (Primary Dx) Start: 09-02-2024 End: 09-02-2024 Telephone encounter Pete Morejon DO Work Phone: [facility] [place] Start: 09-02-2024 End: 09-02-2024 ambulatory GAYLE JIMENEZ Facility:[facility] Start: 09-02-2024 End: 09-02-2024 Patient encounter procedure Gayle Jimenez MD Work Phone: General Surgery Comment on above: Abnormal ultrasound of thyroid gland Start: 08-30-2024 End: 10-11-2024 Telephone encounter Pete Morejon DO Work Phone: [facility] [place] Start: 08-28-2024 End: 08-29-2024 Telephone encounter Jon Plasencia APRN.CNP Work Phone: [facility] Start: 08-26-2024 End: 08-26-2024 ambulatory PETE MOREJON Facility:[facility] Start: 08-26-2024 End: 08-26-2024 Subsequent hospital visit by physician [facility] Work Phone: Radiology Comment on above: Thyroid nodule [E04. 1] Start: 08-21-2024 End: 08-28-2024 Telephone encounter Pete Lenzon DO Work Phone: [facility] [place] Comment on above: Results Start: 08-15-2024 End: 08-15-2024 ambulatory PETE MOREJON Facility:[facility] Start: 08-15-2024 End: 08-15-2024 Subsequent hospital visit by physician Viki [facility] (I-Stat) Work Phone: Cat Scan Comment on above: SOB (shortness of br eath) [R06.02] Start: 08-09-2024 End: 08-09-2024 ambulatory THOM RUIZ Facility:[facility] Start: 08-09-2024 End: 08-09-2024 Subsequent hospital visit by physician Thom Ruiz MD Work Phone: Ambulatory Surgery Comment on above: Screening for colon cancer [Z12.11] Start: 08-05-2024 End: 08-05-2024 Admission to same day surgery center Thom Ruiz MD Work Phone: Ambulatory Surgery Comment on above: miralax bowel prep Start: 08-05-2024 End: 08-05-2024 E-mail encounter from caregiver Thom Ruiz MD Work Phone: Ambulatory Surgery Start: 07-30-2024 End: 07-30-2024 ambulatory PETE LENZON Facility:[facility] Start: 07-30-2024 End: 07-30-2024 Patient encounter procedure Pete Mroejon DO Work Phone: Family [facility] [place] Comment on above: Medicare annual well ness visit, subsequent (Primary Dx); SOB (shortness of breath); Tremor; Hypertension, essential; LVH (left ventricular hypertrophy); Chronic kidney disease, stage 3a (HCC); Dyslipidemia; Hyperlipidemia, mixed; Vitamin D deficiency; Vitamin B12 deficiency; IFG (impaired fasting glucose); DDD (degenerative disc disease), cervical Start: 07-23-2024 End: 07-23-2024 [facility] Facility:[facility] Start: 07-19-2024 End: 07-19-2024 [facility] Facility:[facility] Start: 07-19-2024 End: 07-19-2024 Subsequent hospital visit by physician Rhina [facility] Ba Work Phone: Radiology Comment on above: Bacterial pneumonia [J15.9] Start: 07-15-2024 End: 07-15-2024 Telephone encounter Pete Lenzon DO Work Phone: Family [facility] [place] Start: 07-13-2024 End: 07-15-2024 ambulatory Pete Yuliana PlascenciaMorejon DO Work Phone: [facility] [place] Comment on above: chest xray Start: 07-11-2024 End: 07-12-2024 ambulatory Pete Plascenciarison DO Work Phone: [facility] Comment on above: Labs needed Start: 07-03-2024 End: 07-03-2024 ambulatory SAVANAH HENSON Facility:[facility] Start: 07-03-2024 End: 07-03-2024 Patient encounter procedure Savanah Hensno MD Work Phone: OB/Gynecology Comment on above: Encounter for gyneco logical examination (general) (routine) without abnormal findings (Primary Dx); Encounter for screening mammogram for breast cancer; Screening for colon cancer Start: 07-03-2024 End: 07-03-2024 Patient encounter status Savanah Henson MD Work Phone: [facility] Start: 05-28-2024 End: 05-28-2024 Office outpatient visit 15 minutes Nestor Crowe PA-C Work Phone: [facility] Comment on above: Pneumonia of left lo wer lobe due to infectious organism (Primary Dx); Dizziness; Hypertension, essential Start: 05-28-2024 End: 05-28-2024 ambulatory NESTOR CROWE Facility:[facility] Start: 05-07-2024 End: 05-07-2024 Emergency department patient visit Cameron Bermudez Facility:[facility] Start: 05-07-2024 End: 05-07-2024 Office outpatient visit 25 minutes Nestor ALVARENGAC Work Phone: [facility] [place] Comment on above: Dizziness (Primary D x); SOB (shortness of breath) Start: 05-07-2024 End: 05-07-2024 Patient encounter procedure Ramon DONG Work Phone: [facility] Comment on above: Procedure not lolis d out (Primary Dx) Start: 05-07-2024 End: 05-07-2024 ambulatory NESTOR NATHANCANDICE Facility:[facility] Start: 05-01-2024 End: 05-03-2024 Telephone encounter Pete Morejon DO Work Phone: [facility] Start: 04-30-2024 End: 04-30-2024 ambulatory PETE MOREJON Facility:[facility] Start: 04-30-2024 End: 04-30-2024 Subsequent hospital visit by physician Screen Mammo [facility] Mammogram Comment on above: Encounter for screen ing mammogram for malignant neoplasm of breast [Z12.31] Start: 01-26-2024 Refill Savanah Thad Henson MD Work Phone: OB/Gynecology Comment on above: Refill Request Start: 11-30-2023 Telephone encounter Pete butt DO Work Phone: [facility] Start: 06-07-2023 Telephone encounter Pete butt DO Work Phone: [facility] Comment on above: Results Start: 06-07-2023 End: 06-07-2023 Patient encounter procedure Jin Cole MD Work Phone: Pain Management Comment on above: Spasm of cervical pa raspinous muscle (Primary Dx); Arthritis of neck; DDD (degenerative disc disease), cervical; Neck pain on left side; Acute pain of left shoulder; Left hand paresthesia Start: 06-06-2023 Telephone encounter [facility] Provider Malinda n Management Comment on above: Future Appointment Start: 06-05-2023 E-mail encounter eve palacio caregiver [facility] Provider MURIEL [facility] Start: 06-05-2023 Patient encounter procedure [facility] Provider Pain Management Comment on above: Instructions for upc oming appointment Start: 05-31-2023 End: 05-31-2023 Subsequent hospital visit by physician Ct [facility] (I-Stat) Work Phone: Cat Scan Comment on above: Localized swelling, mass and lump, neck [R22.1] Start: 05-29-2023 Telephone encounter Pete butt DO Work Phone: Family Medicine [place] Comment on above: Results Start: 05-26-2023 Telephone encounter Pete butt DO Work Phone: [facility] Medicine [place] Comment on above: Results Start: 05-26-2023 End: 05-26-2023 Subsequent hospital visit by physician Xr [facility] Mob Work Phone: Radiology Start: 05-26-2023 End: 05-26-2023 Patient encounter procedure Pete Morejon DO Work Phone: [facility] [place] Comment on above: Localized swelling, mass and lump, neck (Primary Dx); Need for influenza vaccination; Encounter for screening mammogram for malignant neoplasm of breast; Fatigue, unspecified type; Neck pain on left side; Acute pain of left shoulder; Left hand paresthesia; Chronic kidney disease, stage 3a (HCC); IFG (impaired fasting glucose); Hyperlipidemia, mixed; Vitamin D deficiency; Vitamin B12 deficiency Start: 05-16-2023 ambulatory Pete fletcher DO Work Phone: [facility] Comment on above: 2 Questions Start: 05-16-2023 Telephone encounter Pete butt DO Work Phone: [facility] Comment on above: Patient Question Start: 02-06-2023 ambulatory [facility] Gardiner [facility] Comment on above: Population Health Na [facility] Out[facility] ([facility] [place] [facility]) Start: 12-26-2022 ambulatory Nimco Gardiner [facility] Comment on above: Population Health Na vigation Outreach ([facility] [place] [facility]) Start: 09-20-2022 Refill Luna Bruce APRN.WOLF HUNTER Work Phone: [facility] Comment on above: Refill Request Start: 07-21-2022 End: 07-21-2022 ambulatory Luna Holden APRN.WOLF HUNTER Work Phone: [facility] [place] Comment on above: COVID-19 (Primary Dx ) Start: 07-21-2022 End: 07-21-2022 Telemedicine consultation with patient Luna Holden APRN.WOLF HUNTER Work Phone: [facility] [place] Start: 05-17-2022 End: 05-17-2022 Subsequent hospital visit by physician Bone Density [facility] Work Phone: Radiology Comment on above: Hypoalbuminemia [E88 .09] Start: 05-17-2022 Documentation procedure Mammog alejandrina Coordinator [facility] Start: 05-17-2022 Letter encounter Mammography Coordinator [facility] Department Start: 05-17-2022 End: 05-17-2022 Subsequent hospital visit by physician Screen Mammo [facility] Mammogram Comment on above: Screening mammogram for breast cancer [Z12.31] Start: 05-09-2022 Telephone encounter Pete butt DO Work Phone: [facility] [place] Comment on above: urine symptoms Start: 05-09-2022 End: 05-09-2022 ambulatory Ob Ultrasound Work Phone: OB/Gynecology Start: 05-09-2022 End: 05-09-2022 Patient encounter procedure Impress Associate [facility]ound Work Phone[facility] Comment on above: PMB (postmenopausal bleeding) (Primary Dx) Start: 03-30-2022 End: 03-30-2022 Patient encounter procedure Pete Morejon DO Work Phone: [facility] Comment on above: Medicare annual well ness visit, subsequent (Primary Dx); IFG (impaired fasting glucose); Hyperlipidemia, mixed; Hypoalbuminemia; Vitamin D deficiency; Other specified disorders of bone density and structure, multiple sites Start: 11-02-2021 End: 11-02-2021 Patient encounter procedure Misael Todd Work Phone: Podiatry Comment on above: Plantar fasciitis of left foot (Primary Dx) Procedures Date Procedure Procedure Detail Performing Clinician Start: 12-11-2024 Albumin/Globulin ratio Dr. Pete Morejon DO Work Phone: Start: 12-11-[address] Pete Morejon DO Work Phone: Start: 12-11-[address] Ghulam Morejon DO Work Phone: Comment on above: No monoclonality det ected.Performed at: [place] [id number] Director: Erick Roberts PhD, Phone: [phone] Start: 12-11-2024 Evaluation of diagno stic study results Dr. Pete Morejon DO Work Phone: Start: 10-31-2024 Mri brain brain stem w/o contrast material Saul Gil MD Work Phone: Start: 09-09-2024 US THYROID BIOPSY RI GHT (POC) SURG USE ONLY Gayle Jimenez MD Work Phone: Start: 09-09-2024 CYTOLOGY NON-OPERATIONS INTELLIGENCE Gayle Jimenez MD Work Phone: Start: 08-09-2024 Colonoscopy flx dx w /collj spec when pfrmd Savanah Henson MD Work Phone: Start: 08-09-2024 Colonoscopy Thom abel MD Work Phone: Start: 07-23-2024 Lipid 1996 panel - S griselda or Plasma Pete Morejon DO Work Phone: Start: 04-30-2024 Screening mammograph y bi 2-view breast inc cad Pete Morejon DO Work Phone: Start: 11-24-2023 Lipid 1996 panel - S griselda or Plasma Pete Morejon DO Work Phone: Start: 05-31-2023 Ct soft tissue neck w/contrast material Pete Morejon DO Work Phone: Start: 05-26-2023 Radex spine cervical 4 or 5 views Pete Morejon DO Work Phone: Start: 05-26-2023 INFLUENZA VACCINE, P RSV FREE, AGE 65+ YR, HIGH DOSE, QUADRIVALENT (FLUZONE HIGH-DOSE) Pete Morejon DO Work Phone: Start: 05-23-2023 Lipid 1996 panel - S griselda or Plasma Pete Plascenciarison DO Work Phone: Start: 05-17-2022 Dxa bone density keith dy 1/> sites axial skel Pete Plascenciarison DO Work Phone: Start: 05-17-2022 End: 05-17-2022 Mammography Luna Brucechance ALONSONGhulamC ADVENTURE THERAPIST Work Phone: Start: 05-09-2022 Us pelvic nonobstetr ic real-time image complete Savanah Henson MD Work Phone: Start: 05-09-2022 Lipid 1996 panel - S griselda or Plasma Pete Plascenciarison DO Work Phone: Start: 03-30-2022 Adult depression scr eening assessment Pete Lenzon DO Work Phone: Start: 05-12-2021 Mammography Misael Guy Work Phone: Start: 09-08-2020 Adult depression scr eening assessment Misael Peyton Work Phone: Start: 06-23-2014 Colonoscopy Misael Guy Work Phone: Plan of Treatment Date Care Activity Detail Author Start: 08-09-2034 Screening for malign ant neoplasm of colon [facility] Start: 07-23-2029 Lipid panel Lipid Screening [facility] Start: 11-23-2028 Lipid panel Lipid Screening [facility] Start: 05-23-2028 Lipid 1996 panel - S griselda or Plasma Lipid Screening [facility] Start: 07-23-2027 Diabetes Screening Diabetes Screenin [facility] Start: 05-09-2027 Lipid 1996 panel - S griselda or Plasma Lipid Screening [facility] Start: 05-09-2027 LIPID SCREEN LIPID SCREEN [facility] Start: 11-23-2026 Diabetes Screening Diabetes Screenin [facility] Start: 05-23-2026 Diabetes Screening Diabetes Screenin g [facility] Start: 04-19-2026 LIPID SCREEN LIPID SCREEN [facility] Start: 2025 RSV Vaccine (1 - 1-d ose 75+ series) RSV Vaccine (1 - 1-dose 75+ series) [facility] Start: 07-30-2025 Annual PCP Team Bag End Sewer toni Disease Visit Annual PCP Team Chronic Disease Visit [facility] Start: 07-30-2025 BP Controlled (<130/80) BP Controlle d (<130/80) [facility] Start: 07-23-2025 Creatinine measurement Serum Creatin ine [facility] Start: 05-28-2025 Annual PCP Team Bag End Sewer toni Disease Visit Annual PCP Team Chronic Disease Visit [facility] Start: 05-28-2025 BP Controlled (<130/80) BP Controlle d (<130/80) [facility] Start: 05-09-2025 DIABETES SCREEN DIABETES SCREEN [facility] Start: 05-09-2025 Diabetes Screening Diabetes Screenin g [facility] Start: 05-07-2025 Annual PCP Team Bag End Sewer toni Disease Visit Annual PCP Team Chronic Disease Visit [facility] Start: 05-07-2025 BP Controlled (<130/80) BP Controlle d (<130/80) [facility] Start: 05-01-2025 End: 05-01-2025 Patient encounter procedure 05/01/2025 10:50 AM EDT Appointment Mammogram [address] [place] [address] Encounter for gynecological examination (general) (routine) without abnormal findings [Z01.419]; Encounter for screening mammogram for breast cancer [Z12.31] Mammogram Comment on above: Encounter for gyneco logical examination (general) (routine) without abnormal findings [Z01.419]; Encounter for screening mammogram for breast cancer [Z12.31] Start: 04-30-2025 Screening for malign ant neoplasm of breast Mammogram Screening [facility] Start: 04-21-2025 End: 04-21-2025 Patient encounter procedure 04/21/2025 4:40 PM EDT Office Visit Neurology [address] [place], [place] [phone] [place] [address] [place] [id number] Follow up MRI / EEG results Neurology Comment on above: Follow up MRI / EEG results Start: 03-22-2025 DIABETES SCREEN DIABETES SCREEN [facility] Start: 12-10-2024 End: 12-10-2024 ambulatory 12/10/2024 12:30 PM EDT [facility] Neurology [address] [address] Queenie Sanders APRN.WOLF HUNTER [address] [address] MRI, EEG results, [facility] pt Neurology Comment on above: MRI, EEG results, W[facility] N pt Start: 11-23-2024 Creatinine measurement Serum Creatin ine [facility] Start: 10-31-2024 End: 10-31-2024 Patient encounter procedure 10/31/2024 10:30 AM EDT Appointment Radiology [address] [place], [place] [id number] Tremor [R25.1]; History of traumatic brain injury [Z87.820]; Diplopia [H53.2]; Incoordination [R27.9]; Abnormality of gait [R26.9] Radiology Comment on above: Tremor [R25.1]; Hist ory of traumatic brain injury [Z87.820]; Diplopia [H53.2]; Incoordination [R27.9]; Abnormality of gait [R26.9] Start: 10-21-2024 End: 10-21-2024 Patient encounter procedure Neurology Comment on above: Tremor [R25.1] consult for tremors of Left hand Start: 10-14-2024 Covid-19 Vaccine () Covid-19 Vaccine () [facility] Start: 09-09-2024 End: 09-09-2024 Patient encounter procedure 09/09/2024 11:15 AM EST Office Visit General Surgery [address] [place], [place] [phone] Gayle Jimenez MD [address] [place] [id number] FNA RT THYROID NODULE General Surgery Comment on above: FNA RT THYROID NODUL E Start: 09-02-2024 End: 09-02-2024 Patient encounter procedure 09/02/2024 11:00 AM EST Office Visit General Surgery [address] [place] [id number] Gayle Jimenez MD [address] [place] [id number] Thyroid nodule [E04.1 General Surgery Comment on above: Thyroid nodule [E04. 1 Start: 08-15-2024 End: 08-15-2024 Patient encounter procedure Cat Scan Comment on above: SOB (shortness of br eath) [R06.02] Start: 08-09-2024 End: 08-09-2024 Patient encounter procedure Ambulatory Surgery Comment on above: Screening for colon cancer [Z12.11] Start: 07-30-2024 End: 07-30-2024 Patient encounter procedure 07/30/2024 12:00 PM EST Office Visit Family Medicine [place] [address] [place] [address] Pete Morejon DO [address] [place] [address] yearly exam Family Medicine [place] Comment on above: yearly exam Start: 07-24-2024 Advance Directive Discussion Advance Directive Discussion [facility] Start: 07-19-2024 End: 07-19-2024 ambulatory 07/19/2024 11:30 AM EST Results Only [facility] [address] [place] [phone] [facility] Start: 07-19-2024 End: 07-19-2024 Patient encounter procedure 07/19/2024 11:00 AM EST Appointment Radiology [address] [place] [place] [phone] Radiology Start: 07-12-2024 End: 10-11-2024 25-hydroxyvitamin D3 [Mass/volume] in Serum or Plasma VITAMIN D 25 HYDROXY Lab Routine Vitamin D deficiency Expected: 07/12/2024, Expires: 10/11/2024 [facility] Comment on above: Expected: 07/12/2024 , Expires: 10/11/2024 Start: 07-12-2024 End: 10-11-2024 Cobalamin (Vitamin B12) [Mass/volume] in Serum or Plasma VITAMIN B12 Lab Routine Vitamin B12 deficiency Expected: 07/12/2024, Expires: 10/11/2024 [facility] Work Phone: Comment on above: Expected: 07/12/2024 , Expires: 10/11/2024 Start: 07-12-2024 End: 10-11-2024 Hemoglobin A1c in Blood HEMOGLOBIN A1C Lab Routine IFG (impaired fasting glucose) Expected: 07/12/2024, Expires: 10/11/2024 [facility] Comment on above: Expected: 07/12/2024 , Expires: 10/11/2024 Start: 07-12-2024 End: 10-11-2024 Lipid 1996 panel - Serum or Plasma LIPID PANEL BASIC Lab Routine Hyperlipidemia, mixed Expected: 07/12/2024, Expires: 10/11/2024 [facility] Comment on above: Expected: 07/12/2024 , Expires: 10/11/2024 Start: 07-03-2024 End: 07-03-2024 Patient encounter procedure 07/03/2024 3:00 PM EST Office Visit OB/Gynecology [address] [place] [phone] Savanah Soria MD [address] [place] [address] annual OB/Gynecology Comment on above: annual Start: 07-02-2024 End: 07-02-2024 Patient encounter procedure 07/02/2024 1:20 PM EST Office Visit OB/Gynecology [address] [place] [phone] Savanah Soria MD [address] [place] [address] annual OB/Gynecology Comment on above: annual Start: 06-23-2024 Colonoscopy COLONOSCOPY [facility] Start: 06-23-2024 COLORECTAL CANCER SCREENING COLORECTAL CANCER SCREENING [facility] Start: 06-23-2024 Screening for malign ant [facility]oplasm [facility] [facility] Start: 06-03-2024 DIABETES SCREEN DIABETES SCREEN [facility] Start: 05-26-2024 Annual PCP Team Bag End Sewer toni Disease Visit Annual PCP Team Chronic Disease Visit [facility] Start: 05-23-2024 Hemoglobin/Hematocrit Hemoglobin/Hem atocrit [facility] Start: 05-23-2024 Serum Creatinine Serum Creatinine Cl [facility] Start: 05-07-2024 End: 08-06-2024 Basic metabolic 2000 panel - Serum or Plasma BASIC METABOLIC PANEL Lab Routine Dizziness SOB (shortness of breath) Expected: 05/07/2024, Expires: 08/06/2024 [facility] Comment on above: Expected: 05/07/2024 , Expires: 08/06/2024 Start: 05-07-2024 End: 08-06-2024 CBC W Auto Differential panel - Blood COMPLETE BLOOD COUNT AND DIFFERENTIAL Lab Routine Dizziness SOB (shortness of breath) Expected: 05/07/2024, Expires: 08/06/2024 [facility] Comment on above: Expected: 05/07/2024 , Expires: 08/06/2024 Start: 04-30-2024 End: 04-30-2024 Patient encounter procedure 04/30/2024 11:30 AM EDT Appointment Mammogram [address] [place] [address] Mammogram Start: 03-24-2024 Influenza vaccination Influenza Vacc ine (#1) [facility] Start: 11-24-2023 End: 02-23-2024 25-hydroxyvitamin D3 [Mass/volume] in Serum or Plasma VITAMIN D 25 HYDROXY Lab Routine Vitamin D deficiency Expected: 11/24/2023, Expires: 02/23/2024 [facility] Work Phone: Comment on above: Expected: 11/24/2023 , Expires: 02/23/2024 Start: 11-24-2023 End: 02-23-2024 CBC panel - Blood by Automated count CBC Lab Routine Hyperlipidemia, mixed Expected: 11/24/2023, Expires: 02/23/2024 [facility] Work Phone: Comment on above: Expected: 11/24/2023 , Expires: 02/23/2024 Start: 11-24-2023 End: 02-23-2024 Cobalamin (Vitamin B12) [Mass/volume] in Serum or Plasma VITAMIN B12 BLOOD Lab Routine Vitamin B12 deficiency Expected: 11/24/2023, Expires: 02/23/2024 [facility] Work Phone: Comment on above: Expected: 11/24/2023 , Expires: 02/23/2024 Start: 11-24-2023 End: 02-23-2024 Comprehensive metabolic 2000 panel - Serum or Plasma COMP METABOLIC PANEL Lab Routine Hyperlipidemia, mixed Expected: 11/24/2023, Expires: 02/23/2024 [facility] Work Phone: Comment on above: Expected: 11/24/2023 , Expires: 02/23/2024 Start: 11-24-2023 End: 02-23-2024 Hemoglobin A1c in Blood HGB A1C Lab Routine IFG (impaired fasting glucose) Expected: 11/24/2023, Expires: 02/23/2024 [facility] Work Phone: Comment on above: Expected: 11/24/2023 , Expires: 02/23/2024 Start: 11-24-2023 End: 02-23-2024 Lipid 1996 panel - Serum or Plasma LIPID PANEL BASIC Lab Routine Hyperlipidemia, mixed Expected: 11/24/2023, Expires: 02/23/2024 [facility] Work Phone: Comment on above: Expected: 11/24/2023 , Expires: 02/23/2024 Start: 10-05-2023 Covid-19 Vaccine () Covid-19 Vaccine () [facility] Start: 07-24-2023 Advance Directive Discussion Advance Directive Discussion [facility] Start: 07-24-2023 Behavioral Health Screening Behavioral Health Screening [facility] Start: 07-21-2023 ANNUAL PCP TEAM METALWORKER TONI DISEASE VISIT ANNUAL PCP TEAM CHRONIC DISEASE VISIT [facility] Start: 05-17-2023 End: 08-16-2023 25-hydroxyvitamin D3 [Mass/volume] in Serum or Plasma VITAMIN D 25 HYDROXY Lab Routine Vitamin D deficiency Expected: 05/17/2023, Expires: 08/16/2023 [facility] Work Phone: Comment on above: Expected: 05/17/2023 , Expires: 08/16/2023 Start: 05-17-2023 End: 08-16-2023 CBC W Auto Differential panel - Blood CBC + DIFF Lab Routine Hyperlipidemia, mixed Expected: 05/17/2023, Expires: 08/16/2023 [facility] Work Phone: Comment on above: Expected: 05/17/2023 , Expires: 08/16/2023 Start: 05-17-2023 End: 08-16-2023 Cobalamin (Vitamin B12) [Mass/volume] in Serum or Plasma VITAMIN B12 BLOOD Lab Routine IFG (impaired fasting glucose) Expected: 05/17/2023, Expires: 08/16/2023 [facility] Work Phone: Comment on above: Expected: 05/17/2023 , Expires: 08/16/2023 Start: 05-17-2023 End: 08-16-2023 Comprehensive metabolic 2000 panel - Serum or Plasma COMP METABOLIC PANEL Lab Routine Hyperlipidemia, mixed Expected: 05/17/2023, Expires: 08/16/2023 [facility] Work Phone: Comment on above: Expected: 05/17/2023 , Expires: 08/16/2023 Start: 05-17-2023 End: 08-16-2023 Hemoglobin A1c in Blood HGB A1C Lab Routine IFG (impaired fasting glucose) Expected: 05/17/2023, Expires: 08/16/2023 [facility] Work Phone: Comment on above: Expected: 05/17/2023 , Expires: 08/16/2023 Start: 05-17-2023 End: 08-16-2023 Lipid 1996 panel - Serum or Plasma LIPID PANEL BASIC Lab Routine Hyperlipidemia, mixed Expected: 05/17/2023, Expires: 08/16/2023 [facility] Work Phone: Comment on above: Expected: 05/17/2023 , Expires: 08/16/2023 Start: 05-17-2023 Mammography [facility] Start: 05-17-2023 Screening for malign ant neoplasm of breast Mammogram Screening [facility] Start: 05-17-2023 End: 08-16-2023 Thyrotropin [Units/volume] in Serum or Plasma TSH BLD Lab Routine IFG (impaired fasting glucose) Hyperlipidemia, mixed Hypoalbuminemia Expected: 05/17/2023, Expires: 08/16/2023 [facility] Work Phone: Comment on above: Expected: 05/17/2023 , Expires: 08/16/2023 Start: 03-30-2023 Adult depression screening assessment DEPRESSION SCREENING [facility] Start: 03-30-2023 ANNUAL PCP TEAM METALWORKER TONI DISEASE VISIT ANNUAL PCP TEAM CHRONIC DISEASE VISIT [facility] Start: 03-30-2023 BP CONTROLLED (<130/80) BP CONTROLLE D (<130/80) [facility] Start: 03-24-2023 Covid-19 Vaccine () Covid-19 Vaccine () [facility] Start: 03-24-2023 Influenza vaccination C [facility] Start: 07-24-2022 ADVANCE DIRECTIVE DISCUSSION ADVANCE DIRECTIVE DISCUSSION [facility] Start: 07-24-2022 DEPRESSION ASSESSMENT DEPRESSION ASS ESSMENT [facility] Start: 05-12-2022 Mammography MAMMOGRAM [facility] Start: 05-09-2022 End: 07-09-2022 Urinalysis complete panel - Urine URINALYSIS WITH MICROSCOPIC, REFLEX CULTURE Lab Routine Dysuria Expected: 05/09/2022, Expires: 07/09/2022 [facility] Work Phone: Comment on above: Expected: 05/09/2022 , Expires: 07/09/2022 Start: 04-29-2022 End: 06-29-2022 25-hydroxyvitamin D3 [Mass/volume] in Serum or Plasma VITAMIN D 25 HYDROXY Lab Routine Vitamin D deficiency Expected: 04/29/2022, Expires: 06/29/2022 [facility] Work Phone: Comment on above: Expected: 04/29/2022 , Expires: 06/29/2022 Start: 04-29-2022 End: 06-29-2022 CBC panel - Blood by Automated count CBC Lab Routine IFG (impaired fasting glucose) Expected: 04/29/2022, Expires: 06/29/2022 [facility] Work Phone: Comment on above: Expected: 04/29/2022 , Expires: 06/29/2022 Start: 04-29-2022 End: 06-29-2022 Cobalamin (Vitamin B12) [Mass/volume] in Serum or Plasma VITAMIN B12 BLOOD Lab Routine IFG (impaired fasting glucose) Hyperlipidemia, mixed Expected: 04/29/2022, Expires: 06/29/2022 [facility] Work Phone: Comment on above: Expected: 04/29/2022 , Expires: 06/29/2022 Start: 04-29-2022 End: 06-29-2022 Hemoglobin A1c in Blood HGB A1C Lab Routine IFG (impaired fasting glucose) Expected: 04/29/2022, Expires: 06/29/2022 [facility] Work Phone: Comment on above: Expected: 04/29/2022 , Expires: 06/29/2022 Start: 04-29-2022 End: 06-29-2022 Lipid 1996 panel - Serum or Plasma LIPID PANEL BASIC Lab Routine Hyperlipidemia, mixed Expected: 04/29/2022, Expires: 06/29/2022 [facility] Work Phone: Comment on above: Expected: 04/29/2022 , Expires: 06/29/2022 Start: 04-27-2022 ANNUAL PCP TEAM METALWORKER TONI DISEASE VISIT ANNUAL PCP TEAM CHRONIC DISEASE VISIT [facility] Start: 04-27-2022 BP CONTROLLED (<130/80) BP CONTROLLE D (<130/80) [facility] Start: 04-12-2022 Urine microalbumin profile [facility] Start: 04-07-2022 COVID-19 VACCINE (5 - Booster for Moderna series) COVID-19 VACCINE (5 - Booster for Moderna series) [facility] Start: 04-07-2022 COVID-19 VACCINE (5 - Moderna series) COVID-19 VACCINE (5 - Moderna series) [facility] Start: 03-24-2022 Influenza vaccination INFLUENZA (#1) [facility] Start: 09-08-2021 Adult depression screening assessment DEPRESSION SCREENING [facility] Start: 07-24-2021 ADVANCE DIRECTIVE DISCUSSION ADVANCE DIRECTIVE DISCUSSION [facility] Start: 07-24-2021 DEPRESSION ASSESSMENT DEPRESSION ASS ESSMENT [facility] Start: 03-13-2021 BP Controlled (<130/80) BP Controlle d (<130/80) [facility] Start: 2010 RSV Vaccine (1 - 1-d ose 60+ series) RSV Vaccine (1 - 1-dose 60+ series) [facility] Start: 2010 RSV Vaccine (1 - Ris k 60-74 years 1-dose series) RSV Vaccine (1 - Risk 60-74 years 1-dose series) [facility] Start: 1995 COLOGUARD (FIT-DNA) COLOGUARD (FIT-D NA) [facility] Start: [address] COLONOGRAPHY [facility] Start: 1995 FECAL OCCULT BLOOD FECAL OCCULT BLOO D [facility] Start: 1995 Screening for malign ant neoplasm of colon [facility] Start: [address] [facility] Start: 1968 Anxiety Screening Anxiety Screening [facility] Start: 1968 Depression Screening Depression Scre ening [facility] End: 08-29-2025 CT Chest WO contrast CT CHEST WO IVCON Radiology Routine SOB (shortness of breath) 1 Occurrences starting 07/30/2024 until 08/29/2025 [facility] Work Phone: Comment on above: 1 Occurrences starti ng 07/30/2024 until 08/29/2025 CT Chest WO contrast CT CHEST WO IVCON Radiology Routine SOB (shortness of breath) 08/15/2024 10:24 AM EST [facility] Work Phone: End: 06-24-2024 Ct soft tissue neck w/contrast material CT NECK SOFT TISSUE W IVCON Radiology STAT Localized swelling, mass and lump, neck Fatigue, unspecified type Neck pain on left side 1 Occurrences starting 05/26/2023 until 06/24/2024 [facility] Work Phone: Comment on above: 1 Occurrences starti ng 05/26/2023 until 06/24/2024 End: 08-02-2025 DBT Breast - bilateral screening LISBET SCREENING W SAM Radiology Routine Encounter for gynecological examination (general) (routine) without abnormal findings Encounter for screening mammogram for breast cancer 1 Occurrences starting 07/03/2024 until 08/02/2025 [facility] Work Phone: Comment on above: 1 Occurrences starti ng 07/03/2024 until 08/02/2025 End: 04-29-2023 Dxa bone density study 1/> sites axial skel DXA-AXIAL SKELETON Radiology Routine Hypoalbuminemia Vitamin D deficiency Other specified disorders of bone density and structure, multiple sites 1 Occurrences starting 03/30/2022 until 04/29/2023 [facility] Work Phone: Comment on above: 1 Occurrences starti ng 03/30/2022 until 04/29/2023 ECG COMPLETE ECG COMPLETE ECG Routine Dizziness SOB (shortness of breath) Ordered: 05/07/2024 [facility] Work Phone: Comment on above: Ordered: 05/07/2024 End: 07-30-2025 Echocardiography ECHO Cardiology Routine SOB (shortness of breath) Hypertension, essential LVH (left ventricular hypertrophy) Dyslipidemia 1 Occurrences starting 07/30/2024 until 07/30/2025 [facility] Comment on above: 1 Occurrences starti ng 07/30/2024 until 07/30/2025 End: 10-21-2025 EPIL EEG ROUTINE EPIL EEG ROUTINE NEUROLOGY Routine Tremor History of traumatic brain injury Diplopia Incoordination Abnormality of gait 1 Occurrences starting 10/21/2024 until 10/21/2025 [facility] Comment on above: 1 Occurrences starti ng 10/21/2024 until 10/21/2025 End: 06-24-2024 LISBET SCREENING LISBET SCREENING Radiology Routine Encounter for screening mammogram for malignant neoplasm of breast 1 Occurrences starting 05/26/2023 until 06/24/2024 [facility] Work Phone: Comment on above: 1 Occurrences starti ng 05/26/2023 until 06/24/2024 End: 11-20-2025 MR Brain WO contrast MRI BRAIN WO IVCON Radiology Routine Tremor History of traumatic brain injury Diplopia Incoordination Abnormality of gait 1 Occurrences starting 10/21/2024 until 11/20/2025 [facility] Work Phone: Comment on above: 1 Occurrences starti ng 10/21/2024 until 11/20/2025 End: 09-20-2025 MR Heart cine for blood flow velocity mapping MRI CARDIAC VELOCITY FLOW MAP Radiology Routine Abnormal echocardiogram Cardiac amyloidosis (HCC) 1 Occurrences starting 08/21/2024 until 09/20/2025 [facility] Comment on above: 1 Occurrences starti ng 08/21/2024 until 09/20/2025 End: 09-20-2025 MRI CARDIAC MORPH FUNC WO/W IVCON MRI CARDIAC MORPH FUNC WO/W IVCON Radiology Routine Abnormal echocardiogram Cardiac amyloidosis (HCC) 1 Occurrences starting 08/21/2024 until 09/20/2025 [facility] Comment on above: 1 Occurrences starti ng 08/21/2024 until 09/20/2025 End: 06-24-2024 Radex spine cervical 4 or 5 views XR CERV OTHER 4V AP/LAT/OBL Radiology Routine Neck pain on left side 1 Occurrences starting 05/26/2023 until 06/24/2024 [facility] Work Phone: Comment on above: 1 Occurrences starti ng 05/26/2023 until 06/24/2024 End: 07-03-2025 Screening colonoscopy COLONOSCOPY SCREENING Endoscopy Routine Screening for colon cancer 1 Occurrences starting 07/03/2024 until 07/03/2025 [facility] Comment on above: 1 Occurrences starti ng 07/03/2024 until 07/03/2025 SPECT Guidance for localization of tumor of Whole body [facility] End: 09-20-2025 SPECT Heart for infarct W Tc-99m PYP IV NM SPECT/CT CARDIAC AMYLOID Radiology Routine Abnormal echocardiogram Cardiac amyloidosis (HCC) 1 Occurrences starting 08/21/2024 until 09/20/2025 [facility] Work Phone: Comment on above: 1 Occurrences starti ng 08/21/2024 until 09/20/2025 [facility] US Thyroid gland US THYROID/PARA THYROID Radiology Routine Thyroid nodule 08/26/2024 11:48 AM MATIvision [facility] Work Phone: End: 06-06-2025 XR Chest PA and Lateral XR CHEST 2V FRONTAL/LAT Radiology STAT Dizziness SOB (shortness of breath) 1 Occurrences starting 05/07/2024 until 06/06/2025 [facility] Comment on above: 1 Occurrences starti ng 05/07/2024 until 06/06/2025 End: 06-27-2025 XR Chest PA and Lateral XR CHEST 2V FRONTAL/LAT Radiology Routine Pneumonia of left lower lobe due to infectious organism 1 Occurrences starting 05/28/2024 until 06/27/2025 [facility] Work Phone: Comment on above: 1 Occurrences starti ng 05/28/2024 until 06/27/2025 End: 08-14-2025 XR Chest PA and Lateral XR CHEST 2V FRONTAL/LAT Radiology Routine Bacterial pneumonia 1 Occurrences starting 07/15/2024 until 08/14/2025 [facility] Work Phone: Comment on above: 1 Occurrences starti ng 07/15/2024 until 08/14/2025 XR Chest PA and Lateral XR CHEST 2V FRONTAL/LAT Radiology Routine Bacterial pneumonia 07/19/2024 11:08 AM [facility]vision [facility] Work Phone: End: 06-24-2024 XR SHOULDER ORTHO 4V AP/TRUE AP/LAT/OUTLET LEFT XR SHOULDER ORTHO 4V AP/TRUE AP/LAT/OUTLET LEFT Radiology Routine Neck pain on left side Acute pain of left shoulder 1 Occurrences starting 05/26/2023 until 06/24/2024 [facility] Work Phone: Comment on above: 1 Occurrences starti ng 05/26/2023 until 06/24/[address] [facility] Immunizations Immunization Date Immunization Notes Care Provider Isela lambert 05-26-2023 influenza (HD-IIV4) vaccine, age 65+ yr, high dose, quadrivalent, PF (FLUZONE HIGH-DOSE) Pete Morejon DO Work Phone: [facility] Work Phone: 05-26-2023 influenza virus vacc ine, unspecified formulation Savanah Henson MD Work Phone: [facility] 11-08-2022 COVID-19 vaccine, ag e 12+ yr, bivalent (MODERNA) Pete Morejon DO Work Phone: [facility] 05-10-2022 influenza virus vacc ine, unspecified formulation Pete Morejon DO Work Phone: [facility] 04-27-2021 influenza, injectabl e, quadrivalent, contains preservative Misael [employer] Work Phone: [facility] 12-01-2020 zoster vaccine recombinant Misael [employer] Work Phone: [facility] 10-19-2020 Covid (Moderna) Dr. Pete Morejon DO Work Phone: [facility] 09-21-2020 Covid (Moderna) Dr. Pete Morejon DO Work Phone: [facility] 03-26-2020 zoster vaccine recombinant Misael [employer] Work Phone: [facility] Work Phone: 04-29-2019 influenza, injectabl e, quadrivalent, contains preservative Misael [employer] Work Phone: [facility] 04-23-[address] Pete Morejon DO Work Phone: [facility] 04-23-2018 influenza, injectabl e, quadrivalent, contains preservative Misael Testrake Work Phone: [facility] Work Phone: 04-23-2018 pneumococcal polysaccharide vaccine, 23 valent [employer] Work Phone: [facility] Work Phone: 04-19-2017 influenza, injectabl e, quadrivalent, contains preservative [employer] Work Phone: [facility] Work Phone: 04-19-2017 pneumococcal conjuga te vaccine, 13 valent [employer] Work Phone: [facility] Work Phone: 05-26-2016 influenza, high dose seasonal, preservative-free [employer] Work Phone: [facility] Work Phone: 04-17-2013 influenza virus vacc ine, unspecified formulation [employer] Work Phone: [facility] Work Phone: 04-12-2012 tetanus toxoid, redu evelyne diphtheria toxoid, and acellular pertussis vaccine, adsorbed [employer] Work Phone: [facility] Work Phone: 01-18-2012 zoster vaccine, live [employer] Work Phone: [facility] 06-15-2009 influenza virus vacc ine, unspecified formulation [employer] Work Phone: [facility] Work Phone: 06-07-2007 influenza virus vacc ine, unspecified formulation [employer] Work Phone: [facility] Work Phone: Payers Date Payer Category Payer Self-pay 2015 Medicare MEDICARE MEDICAR E A AND B [id number] 2015-Present [phone] [place] [address] Medicare [id number] 2015 Medicare [id number] 2015 Private Health Insurance [employer] [id number] 2015-Present [phone] [address] [place] [address] Indemnity [id number] 2015 Private Health Insurance [id number] 2015 Medicare [id number] 2015 Unknown [id number] Unknown [id number] Unknown [id number] Unknown [id number] Unknown [id number] Unknown [id number] Unknown [id number] Social History Date Type Detail Facility Start: 11-09-2011 End: 11-15-2024 Tobacco smoking status NEIS Never smoked tobacco [facility] Start: 11-02-2021 End: 10-21-2024 Alcohol intake Current drinker of alcohol (finding) [facility] Start: 03-18-2020 End: 07-21-2022 History SDOH Alcohol Frequency 2 [facility] Start: 03-18-2020 End: 07-21-2022 History SDOH Alcohol Std Drinks 1 [facility] Start: 04-25-2012 History SDOH Alcohol Comment 6 per year [facility] Start: 03-11-2020 End: 07-21-2022 History SDOH Social Connections Phone 3 [facility] Start: 03-11-2020 End: 07-21-2022 History SDOH Physical Activity DPW 0 [facility] Start: 03-18-2020 End: 07-21-2022 History SDOH Financial 5 [facility] Start: 03-11-2020 Education 12 [facility] Start: 1950 Sex Assigned At Female [facility] Start: 10-23-2021 End: 05-17-2022 Exposure to SARS-CoV-2 (event) Not sure [facility] Start: 11-09-2011 End: 05-26-2023 Tobacco use and exposure Smokeless tobacco non-user [facility] Start: 03-23-2022 History SDOH Social Connections Phone 4 [facility] Start: 07-21-2022 End: 05-26-2023 History of Social function [facility] Start: 07-21-2022 End: 05-26-2023 Social connection and isolation panel [facility] Do you belong to any clubs or organizations such as orthodoxy groups, unions, fraternal or athletic groups, or school groups? Yes [facility] Are you now , , , , never or living with a partner? [facility] How often to you hav e a drink containing alcohol? Monthly or less [facility] How many standard dr inks containing alcohol do you have on a typical day? Patient does not drink [facility] How often do you hav e 6 or more drinks on 1 occasion? Never [facility] Do you feel stress - tense, restless, nervous, or anxious, or unable to sleep at night because your mind is troubled all the time - these days [OSQ] Only a little [facility] (I/We) worried trista er (my/our) food would run out before (I/we) got money to buy more. Never true [facility] In the past 12 month s, was there a time when you were not able to pay the mortgage or rent on time? No [facility] Start: 03-11-2020 Gender identity Identifies as female gender (finding) [facility] Start: 03-11-2020 Sexual orientation Heterosexual (finding) [facility] Do you feel stress - tense, restless, nervous, or anxious, or unable to sleep at night because your mind is troubled all the time - these days [OSQ] Not at all [facility] How many standard dr inks containing alcohol do you have on a typical day? 1 or 2 [facility] Start: 03-11-2019 Non-smoker Non-smoker [facility] Start: 11-08-2024 Sex Female (finding) [facility] Medical Equipment Procedure Code Equipment Code Equipment Origin al Text Equipment Identifier Dates Minimally 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 ACCOLADE ll 132 degree FDA Start: 03-27-2019 Minimally 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 BIOLOX DELTA CERAMIC V40 FDA Start: 03-27-2019 Minimally 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 TRIDENT [id number] DEGREE POLY INSER FDA Start: 03-27-2019 Minimally 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 TRIDENT ll TRITANIUM FDA Start: 03-27-2019 Minimally 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 ACCOLADE ll 132 degree FDA Start: 03-27-2019 Minimally 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 BIOLOX DELTA CERAMIC V40 FDA Start: 03-27-2019 Minimally 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 TRIDENT [id number] DEGREE POLY INSER FDA Start: 03-27-2019 Minimally 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 TRIDENT ll TRITANIUM FDA Start: 03-27-2019 Minimally 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 ACCOLADE ll 132 degree FDA Start: 03-27-2019 Minimally 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 BIOLOX DELTA CERAMIC V40 FDA Start: 03-27-2019 Minimally 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 TRIDENT X3 0 DEGREE POLY INSER FDA Start: 03-27-2019 Minimally 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 TRIDENT ll TRITANIUM FDA Start: 03-27-2019 DOUGH,CEMENT 6191-1-010 FDA Start: 10-01-2018 DOUGH,CEMENT 6191-1-010 FDA Start: 10-01-2018 PATELLA FDA Start: 10-01-2018 POSTERIOR STABILIZING FEMORAL FDA Start: 10-01-2018 TIBIAL BASEPLATE FDA Start: 10-01-2018 TIBIAL INSERT-PS FDA Start: 10-01-2018 DOUGH,CEMENT 6191-1-010 FDA Start: 10-01-2018 DOUGH,CEMENT 6191-1-010 FDA Start: 10-01-2018 PATELLA FDA Start: 10-01-2018 POSTERIOR STABILIZING FEMORAL FDA Start: 10-01-2018 TIBIAL BASEPLATE FDA Start: 10-01-2018 TIBIAL INSERT-PS FDA Start: 10-01-2018 DOUGH,CEMENT 6191-1-010 FDA Start: 10-01-2018 DOUGH,CEMENT 6191-1-010 FDA Start: 10-01-2018 PATELLA FDA Start: 10-01-2018 POSTERIOR STABILIZING FEMORAL FDA Start: 10-01-2018 TIBIAL BASEPLATE FDA Start: 10-01-2018 TIBIAL INSERT-PS FDA Start: 10-01-2018 Functional Status Date Assessment Result Facility 05-29-2014 Are you deaf, or do you have serious difficulty hearing No 05/29/2014 2:07 PM Humera Rivera, [place] No [facility] 05-29-2014 Are you blind, or do you have serious difficulty seeing, even when wearing glasses No 05/29/2014 2:07 PM Humera Rivera, ROCK[place] No [facility] 05-29-2014 Do you have serious difficulty walking or climbing stairs No 05/29/2014 2:07 PM Humera Rivera, R[place]Y No [facility] 05-29-2014 Do you have difficul ty dressing or bathing No 05/29/2014 2:07 PM Humera Rivera, ROCKY No [facility] 05-29-2014 Because of a physica l, mental, or emotional condition, do you have difficulty doing errands alone such as visiting a physician's office or shopping No 05/29/2014 2:07 PM Humera Rivera, [place] No [facility] Mental Status Date Assessment Result Facility 05-29-2014 Because of a physica l, mental, or emotional condition, do you have serious difficulty concentrating, remembering, or making decisions No 05/29/2014 2:07 PM Humera Rivera, R[place] No [facility] Clinical Notes 04-19-2011 to 12-11-2024 Note Date & Type Note Facility 12-11-2024 Evaluation note Diagnosis Onset Date Resolution 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 Author Type: Nurse Practitioner Type: Progress Notes Filed: 12/10/2024 13:19 Note Text: [facility] Neurologic [place] Follow-up Visit Follow-up note This visit was conducted via virtual platform. I have communicated my name and active licensure. The patient's identity and physical location were verified at the time of this visit. Either the patient or their legal retail wireless sales representative has been informed of the risks and benefits of -- and alternatives to -- treatment through a remote evaluation and consents to proceed with the evaluation remotely. December 10, 2024 HPI: Ms. Reyes presents today for a follow-up visit. Per her previous visit with Dr. Gil on 10/21/24: ASSESSMENT/PLAN: 1. Tremor - ICD9: 781.0, ICD10: R25.1 (primary diagnosis) 2. History of traumatic brain injury - ICD9: V15.52, ICD10: Z87.820 3. Diplopia - ICD9: 368.2, ICD10: H53.2 4. Incoordination - ICD9: 781.3, ICD10: R27.9 5. Abnormality of gait - ICD9: 781.2, ICD10: R26.9 Patient with chronic neurologic deficits associated with TBI that patient reports as occurring ~50 years ago with more details as provided by patient as documented above. 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 At present, patient with multifocal neuro deficits including sensory, motor, coordination. A postural tremor is noted in the head, however, no significant tremor noted in LUE. While tremors in fact may be of essential nature and unrelated to head injury, I am also uncertain if more recent [employer] events or if what is referred to as a tremor, might actual represent focal motor seizure activity. D/w pt and will get MRI brain to reevaluate extent of TBI while also looking for unrelated [employer] events such as more recent strokes to explain multifocal nature of neuro findings. Will also get EEG to evaluate for epileptiform abnormalities. Treatment plan will be determined once these results are known. If not suggestive of a COMMERCIAL CRABBER cause, may consider trial of Primidone or Topamax to see if relief of tremors. 6. Claustrophobia - ICD9: 300.29, ICD10: F40.240 - LORAZEPAM 0.5 MG TABLET - to be given prior to MRI as per Rx (see current meds). SE and ADRs d/w pt. Pt agrees with plan as above. Follow up after testing or sooner prn. No new sx since September. Tremor still in head and hands. Present for about 25 years. Has progressed over the years. States she was told because of head injury she was having tremor. Tremor worse on L. Fine motor difficulties on R. Switched back to writing on R d/t tremor. Difficulty carrying water or bowl of soup. No problems using spoon in R but is slower. Some difficulty feeling self with L hand. Head tremor 3-4 years ago. Notes if putting on makeup or if really tired. States her thinks her voice has changed. Feels voice goes in and out but also softer. Feels voice can change completely sometimes. She has been unstable since accident. One leg is not as strong. Does not feel PT would benefit. PAST MEDICAL HISTORY Diagnosis Date Arthritis left knee, back Chronic kidney disease, stage 3a (HCC) 05/26/2023 Complication of anesthesia N/V DDD (degenerative disc disease), lumbar Diulus, Cole Diverticulosis of colon (without mention of hemorrhage) 05/27 Diverticulosis Head injury 1971 left hand numbness, decrease coordination on right (dominant) IFG (impaired fasting glucose) 03/2017 a1c 5.8% Insomnia, unspecified improved Mild atherosclerosis of carotid artery 2016 internal, 0-19% Papanicolaou smear of cervix with atypical squamous cells of undetermined significance (ASC-US) 2009 ASCUS HPV negative, Dr Whiteside Snoring Tremor left hand Unspecified essential hypertension borderline PAST SURGICAL HISTORY Procedure Laterality Date ARTHROSCOPY KNEE DIAGNOSTIC W/WO SYNOVIAL BX SPX 03/25/2003 Arthroscopy, knee LEFT ARTHRP ACETBLR/PROX FEM PROSTC AGRFT/ALGRFT Left 03/27/[address] [facility], [facility] ARTHRP KNE CONDYLEANDPLATU MEDIALANDLAT COMPARTMENTS 10/04/10 Knee replacement, total Knee ARTHRP KNE CONDYLEANDPLATU MEDIALANDLAT COMPARTMENTS Right 10/01/2018 Dr. Mata, [facility] COLONOSCOPY FLX DX W/COLLJ SPEC WHEN PFRMD 06/02/04 Repeat in COLONOSCOPY FLX DX W/COLLJ SPEC WHEN PFRMD 06/23/14 no polyps EYE SURGERY HX 06/27/14 left laeral rectus recession-strabismus F SI JOINT INJECTION 02/02/12 LIG/TRNSXJ FLP TUBE ABDL/VAG APPR UNI/BI 1982 Tubal ligation NEUROPLASTY AND/TRANSPOS MEDIAN NRV CARPAL TUNNE 09/2000 Carpal tunnel decomp LEFT PAST SURGICAL HISTORY OF 1988 LEFT EYE, strabismus repair after injury PAST SURGICAL HISTORY OF 1970 skull fracture (ice skating) Current Outpatient Medications on File Prior to Visit Medication Sig LORazepam (ATIVAN) 0.5 mg Take 1 (more content not included)...[facility]04-30-2025 Telephone encounter Note* Telephone Encounter - Zulma Gonzalez LPN - 11/20/2024 2:50 PM EDT Patient notified of results, verbalizes understanding of instructions. Pt made a video appt follow up Zulma Gonzalez LPN [facility]04-30-2025 Miscellaneous Notes* Telephone Encounter - Zulma Gonzalez LPN - 11/20/2024 2:50 PM EDT Patient notified of results, verbalizes understanding of instructions. Pt made a video appt follow up Zulma Gonzalez LPN * Telephone Encounter - Saul Gil Jr., MD - 11/20/2024 2:00 PM EDT MRI brain per report did not show any acute changes. Posterior fossa changes that are mentioned our chronic and suspect due to history of TBI per descriptions of event provided by patient. Saul Gil MD * Telephone Encounter - Brianda Gaytan LPN - 11/20/2024 1:44 PM EDT Please review MRI as well. Brianda Gaytan LPN * Telephone Encounter - Saul Gil Jr., MD - 11/20/2024 8:37 AM EDT EEG per report was normal. Pt should schedule with ROGER to get in sooner. Saul Gil MD * Telephone Encounter - Brianda Gaytan LPN - 11/19/2024 1:25 PM EDT Please review- Scan on 11/18/2024 1:47 PM by Provider, External, LESLEY: EEG Brianda Gaytan LPN * Telephone Encounter - Aisha De León LPN - 11/18/2024 11:54 AM EDT Pt calls to report she completed MRI and EEG at [facility]. Pt reports the earliest she could get in with Dr. Gil to go over results is . Pt is asking if it is ok to wait so long. Please review and advise. Aisha De León LPN [facility] Telephone encounter Note * Telephone Encounter - Saul Gil Jr., MD - 11/20/2024 2:00 PM EDT MRI brain per report did not show any acute changes. Posterior fossa changes that are mentioned our chronic and suspect due to history of TBI per descriptions of event provided by patient. Saul Gil MD [facility]04-30-2025 Telephone encounter Note* Telephone Encounter - Brianda Gaytan LPN - 11/20/2024 1:44 PM EDT Please review MRI as well. Brianda Gaytan LPN [facility]04-30-2025 Telephone encounter Note* Telephone Encounter - Saul Gil Jr., MD - 11/20/2024 8:37 AM EDT EEG per report was normal. Pt should schedule with ROGER to get in sooner. Saul Gil MD [facility]04-29-2025 Telephone encounter Note* Telephone Encounter - Brianda Gaytan LPN - 11/19/2024 1:25 PM EDT Please review- Scan on 11/18/2024 1:47 PM by Provider, LESLEY Mandel: EEG Brianda Gaytan LPN [facility]04-28-2025 Telephone encounter Note* Telephone Encounter - Aisha De León LPN - 11/18/2024 11:54 AM EDT Pt calls to report she completed MRI and EEG at [facility]. Pt reports the earliest she could get in with Dr. Gil to go over results is . Pt is asking if it is ok to wait so long. Please review and advise. Aisha De León LPN [facility]04-10-2025 History of Present illness Narrative* Nina Chapman, RT(R) - 10/31/2024 10:30 AM EDT Radiology Service Progress Note PATIENT NAME: Mary Reyes DATE OF SERVICE: October 31, 2024 TIME: 10:53 AM PATIENT IDENTITY VERIFICATION COMPLETED USING TWO (2) IDENTIFIERS: Name and Date of confirmedby patient verbally. FALL SCREENING: Has the patient had 2 falls in the last year or 1 fall with injury or currently using an Ambulatory Assistive Device (Walker, Cane, Wheelchair, Crutches, etc.)? No PATIENT GENDER DATA: Assigned female at . status: : No status:NO. PATIENT RELEVANT IMPLANT DATA REVIEWED: Yes PATIENT PRESENTS WITH AN IMPLANTABLE OR ATTACHED DEPENDENCY DIRECTOR: No RADIOLOGY DEPARTMENT: MR; Exam(s) Completed: Head: Seizure PERIPHERAL IV DATA: Not applicable SIGNED BY: VON Selby) October 31, 2024 10:53 AM documented in this encounterC[facility]04-[facility]-2025 NoteHNO ID: [id number] Author: NINA CHAPMAN RT(R) Service: ? Author Type: Technologist Type: Progress Notes Filed: 10/31/2024 10:54 Note Text: Radiology Service Progress Note PATIENT NAME: Mary Reyes DATE OF SERVICE: October 31, 2024 TIME: 10:53 AM PATIENT IDENTITY VERIFICATION COMPLETED USING TWO (2) IDENTIFIERS: Name and Date of confirmed by patient verbally. FALL SCREENING: Has the patient had 2 falls in the last year or 1 fall with injury or currently using an Ambulatory Assistive Device (Walker, Cane, Wheelchair, Crutches, etc.)? No PATIENT GENDER DATA: Assigned female at . status: : No status: NO. PATIENT RELEVANT IMPLANT DATA REVIEWED: Yes PATIENT PRESENTS WITH AN IMPLANTABLE OR ATTACHED DEPENDENCY DIRECTOR: No RADIOLOGY DEPARTMENT: MR; Exam(s) Completed: Head: Seizure PERIPHERAL IV DATA: Not applicable SIGNED BY: VON Selby) October 31, 2024 10:53 [facility]04-01-2025 NoteHNO ID: [id number] Author: RASHID JAIN LPN Service: ? Author Type: LICENSED NURSE Type: Progress Notes Filed: 10/22/2024 09:22 Note Text: EMG order sent to [facility]. Rashid Jain LPN October 22, 2024 9:22 AM 10/15/2024 PROMIS Global Health Physical Health Summary Physical health: Very good Everyday physical activity, ability: Mostly Fatigue: Mild Pain level: 2 General health: Good Social activities/roles, ability: Very good Physical Health T-Score 50.8 (Very Good) Physical Health Percentile 53 PROMIS [facility] Mental Health Summary Quality of life: Very good Mental health (mood,thinking): Very good Social satisfaction: Very good Emotional problems (anxious,depressed): Never Mental Health T-Score 56 (Excellent) Mental Health Percentile 73 Percentiles provide an indication of how a patient's score ranks in relation to the [place] general population. > 31st percentile is within normal limits or better *< 31st percentile is at least ? SD worse than population, which may be clinically relevant < 16th percentile is at least 1 SD worse than population and warrants attention 10/15/2024 Sleep Apnea Probability Snores loudly: Yes Tired, fatigued or sleepy in daytime: No Stops breathing or choking/gasping during sleep: No High blood pressure: No Sleep Apnea Probability Score: 47 (Sleep study not recommended)[facility]03-31-2025 NoteHNO ID: [id number] Author: SAUL GIL JR, MD Service: ? Author Type: Physician Type: Progress Notes Filed: 10/21/2024 17:55 Note Text: NEW PATIENT (CONSULT) HISTORY AND PHYSICAL EXAM PRIMARY CARE PHYSICIAN: Pete Morejon DO REASON FOR CONSULT: Tremors REFERRING PHYSICIAN: Pete Morejon DO CHIEF COMPLAINT: Progression of tremors and history of TBI Consultation requested by Pete Morejon DO for an opinion regarding chief complaint of Patient presents with: New Patient: C/o Tremos in left hand x20 yrs, progressing, tremors all day and my final recommendations will be communicated back to the requesting physician by way of shared medical record or letter via [place] mail. HISTORY OF PRESENT ILLNESS: Mary Reyes is a 74 year old female, BMI 37.89 kg/m2 with a PMH significant for that below. 50 years ago was skating in [employer] and had a skull fracture. at that time did not have a head imaging other than a XR. Started having diplopia and was transferred to [facility] and then returned home. States needed therapy to walk. States lost fine motor skills on R side and has chronic numbness on the L side (including loss of temperature - burnt self taking things out of the oven). Patient still uncertain of final dx. Patient was initially R handed but post event, became L handed. States after 30 years noticed the L thumb was shaking. 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 5 years after that had an ankle that was swelling up and saw ortho and was told some difference in gait; pt explained that she had chronic weakness on R side -- sent to neurologist in [facility] and saw twice. States had an MRI brain and told it was not PD or MS and that she was michelle as damage was at the brain stem (referring to skating accident). Tremor has increased to involve not just hand but head as well. States has no control over the tremor. Rhythmic. Tremor more obvious when tired or stressed. Not circadian. Patient was placed on metoprolol for termor but no impact. Pt also feels voice more raspy as tremor getting worse. No changes in walking. No constipation. REVIEW OF SYSTEMS GENERAL:No weight loss, malaise or fevers. HEENT:Negative for frequent or significant headaches, No changes in hearing or vision, no nose bleeds or other nasal problems NECK:Negative for lumps, goiter, pain and significant neck swelling RESPIRATORY: Negative for cough, wheezing or shortness of breath. CARDIOVASCULAR: Negative for chest pain, leg swelling or palpitations. GASTROINTESTINAL: Negative for abdominal discomfort, blood in stools or black stools or change in bowel habits GENITOURINARY: No history of dysuria, frequency or incontinence MUSCULOSKELETAL: Negative for joint pain or swelling, back pain or muscle pain. NEUROLOGIC:See HPI. SKIN:Negative for lesions, rash, and itching. HEMATOLOGIC/LYMPHATIC/IMMUNOLOGIC:Negative for prolonged bleeding, bruising easily or swollen nodes. ENDOCRINE: Negative for cold or heat intolerance, polyuria, polydipsia and goiter. The remainder of the ROS was reviewed and is negative. LAB/IMAGING: Reviewed and include: WBC (k/uL) Date Value 07/23/2024 7.56 RBC (m/uL) Date Value 07/23/2024 4.99 Hemoglobin (g/dL) Date Value 07/23/2024 13.8 Hematocrit (%) Date Value 07/23/2024 43.5 MCV (fL) Date Value 07/23/2024 87.2 MCH (pg) Date Value 07/23/2024 27.7 MCHC (g/dL) Date Value 07/23/2024 31.7 RDW-CV (%) Date Value 07/23/2024 13.2 Platelet Count (k/uL) Date Value 07/23/2024 293 MPV (fL) Date Value 07/23/2024 10.7 Glucose (mg/dL) Date Value 07/23/2024 109 (H) BUN (mg/dL) Date Value 07/23/2024 16 Creatinine (mg/dL) Date Value 07/23/2024 0.89 Sodium (mmol/L) Date Value 07/23/2024 140 Potassium (mmol/L) Date Value 07/23/2024 3.8 Chloride (mmol/L) Date Value 07/23/2024 104 CO2 (mmol/L) Date Value 07/23/2024 29 Protein, Total (g/dL) Date Value 11/24/2023 6.6 Albumin (g/dL) Date Value 11/24/2023 3.7 (L) Calcium, Total (mg/dL) Date Value 07/23/2024 9.2 Alkaline Phosphatase (U/L) Date Value 11/24/2023 58 Bilirubin, Total (mg/dL) Date Value 11/24/2023 1.2 AST (U/L) Date Value 11/24/2023 13 ALT (U/L) Date Value 11/24/2023 10 Rheumatoid Factor (IU/mL) Date Value 06/10/2003 <3 Hep C Antibody IA (no units) Date Value 07/29/2016 Negative MEDICATIONS: metoprolol succinate ER (TOPROL XL) 50 mg 24 hr tablet Take 1 tablet by mouth once daily. cholecalciferol, vitamin D3, (D3-2000 ORAL) Take by mouth. cyanocobalamin (VITAMIN B-12) 1,000 mcg tab Take 1,000 mcg by mouth once daily. triamcinolone acetonide (KENALOG) 0.5 % cream Apply to affected area three times a day. vit A,C,L-Puun-Zcevaj (PRESERVISION AREDS) 2,148 mcg-113 mg-45 mg-17.4mg tab Take 1 tablet by mouth daily with breakfast. metroNIDAZOLE (METROGEL) 0.75 % Topical Gel (more content not included)... [facility]03-31-2025 History of Present illness Narrative* Saul Gil Jr., MD - 10/21/2024 2:52 PM EDT NEW PATIENT (CONSULT) HISTORY AND PHYSICAL EXAM PRIMARY CARE PHYSICIAN: Pete Morejon DO REASON FOR CONSULT: Tremors REFERRING PHYSICIAN: Pete Morejon DO CHIEF COMPLAINT: Progression of tremors and history of TBI Consultation requested by Pete Morejon DO for an opinion regarding chief complaint of Patient presents with: New Patient: C/o Tremos in left hand x20 yrs, progressing, tremors all day and my final recommendations will be communicated back to the requesting physician by way of sharedmedical record or letter via [place] mail. HISTORY OF PRESENT ILLNESS: Mary Reyes is a 74 year old female, BMI 37.89 kg/m2 with a PMH significant for that below. 50 years ago was skating in [place] and had a skull fracture. at that time did not have a head imaging other than a XR. Started having diplopia and was transferred to [facility] and then returned home. needed therapy to walk. lost fine motor skills on Rside and has chronic numbness on the L side (including loss of temperature - burnt self taking things out of the oven). Patient still uncertain of final dx. Patient was initially R handed but post event, became L handed. States after 30 years noticed the L thumb was shaking. 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 5 years after that had an ankle that was swelling up and saw ortho and was told some difference in gait; pt explained that she had chronic weakness on R side -- sent to neurologist in [facility] and saw twice. had an MRI brain and told it was not PD or MS and that she was michelle as damage was at the brain stem (referring to skating accident). Tremor has in creased to involve not just hand but head as well. States has no control over the tremor. Rhythmic.Tremor more obvious when tired or stressed. Not circadian. Patient was placed on metoprolol for termor but no impact. Pt also feels voice more raspy as tremor getting worse. No changes in walking. No constipation. REVIEW OF SYSTEMS GENERAL:No weight loss, malaise or fevers. HEENT:Negative for frequent or significant headaches, No changes in hearing or vision, no nose bleeds or other nasal problems NECK:Negative for lumps, goiter, pain and significant neck swelling RESPIRATORY: Negative for cough, wheezing or shortness of breath. CARDIOVASCULAR: Negative for chest pain, leg swelling or palpitations. GASTROINTESTINAL: Negative for abdominal discomfort, blood in stools or black stools or change in bowel habits GENITOURINARY: No history of dysuria, frequency or incontinence MUSCULOSKELETAL: Negative for joint pain or swelling, back pain or muscle pain. NEUROLOGIC:See HPI. SKIN:Negative for lesions, rash, and itching. HEMATOLOGIC/LYMPHATIC/IMMUNOLOGIC:Negative for prolonged bleeding, bruising easily or swollen nodes. ENDOCRINE: Negative for cold or heat intolerance, polyuria, polydipsia and goiter. The remainder of the ROS was reviewed and is negative. LAB/IMAGING: Reviewed and include: WBC (k/uL) Date Value 07/23/2024 7.56 RBC (m/uL) Date Value 07/23/2024 4.99 Hemoglobin (g/dL) Date Value 07/23/2024 13.8 Hematocrit (%) Date Value 07/23/2024 43.5 MCV (fL) Date Value 07/23/2024 87.2 MCH (pg) Date Value 07/23/2024 27.7 MCHC (g/dL) Date Value 07/23/2024 31.7 RDW-CV (%) Date Value 07/23/2024 13.2 Platelet Count (k/uL) Date Value 07/23/2024 293 MPV (fL) Date Value 07/23/2024 10.7 Glucose (mg/dL) Date Value 07/23/2024 109 (H) BUN (mg/dL) Date Value 07/23/2024 16 Creatinine (mg/dL) Date Value 07/23/2024 0.89 Sodium (mmol/L) Date Value 07/23/2024 140 Potassium (mmol/L) Date Value 07/23/2024 3.8 Chloride (mmol/L) Date Value 07/23/2024 104 CO2 (mmol/L) Date Value 07/23/2024 29 Protein, Total (g/dL) Date Value 11/24/2023 6.6 Albumin (g/dL) Date Value 11/24/2023 3.7 (L) Calcium, Total (mg/dL) Date Value 07/23/2024 9.2 Alkaline Phosphatase (U/L) Date Value 11/24/2023 58 Bilirubin, Total (mg/dL) Date Value 11/24/2023 1.2 AST (U/L) Date Value 11/24/2023 13 ALT (U/L) Date Value 11/24/2023 10 Rheumatoid Factor (IU/mL) Date Value 06/10/2003 <3 Hep C Antibody IA (no units) Date Value 07/29/2016 Negative MEDICATIONS: metoprolol succinate ER (TOPROL XL) 50 mg 24 hr tablet Take 1 tablet by mouth once daily. cholecalciferol, vitamin D3, (D3-2000 ORAL) Take by mouth. cyanocobalamin (VITAMIN B-12) 1,000 mcg tab Take 1,000 mcg by mouth once daily. triamcinolone acetonide (KENALOG) 0.5 % cream Apply to affected area three times a day. vit A,C,N-Zzxn-Mdzveu (PRESERVISION AREDS) 2,148 mcg-113 mg-45 mg-17.4mg tab Take 1 tablet by mouthdaily with breakfast. metroNIDAZOLE (METROGEL) 0.75 % Topical Gel Apply to affected area twice daily. acetaminophen (TYLENOL EXTRA STRENGTH) 500 mg tablet Take 1,000 mg by mouth every 8 hours as needed. aspirin, enteric coated (ASPIRIN, ENTERIC COATED) 81 mg EC tablet Take 81 mg by mouth once daily. HISTORIES PAST MEDICAL HISTORY Diagnosis Date Arthritis left knee, back Chronic kidney disease, stage 3a (HCC) 05/26/2023 Complication of anesthesia N/V DDD (degenerative disc disease), lumbar Diulus, Cole Diverticulosis of colon (without mention of hemorrhage) 05/27 Diverticulosis Head injury 1971 left hand numbness, decrease coordination on right (dominant) IFG (impaired fasting glucose) 03/2017 a1c 5.8% Insomnia, unspecified improved Mild atherosclerosis of carotid artery 2016 internal, 0-19% Papanicolaou smear of cervix with atypical squamous cells of undetermined significance (ASC-US) 2009 ASCUS HPV negative, Dr Whiteside Snoring Tremor left hand Unspecified essential hypertension borderline FAMILY HISTORY Problem Relation Age of Onset Heart Mother atrial fibrilation/diverticulitis/osteoporosis Stroke Father Breast Cancer Maternal Grandmother Stroke Maternal Grandmother Stroke Paternal Grandfather Heart Brother SOCIAL HISTORY Social History Tobacco Use Smoking status: Never Smokeless tobacco: Never Vaping Use Vaping status: Never Used Substance Use Topics Alcohol use: Yes Comment: 6 per year Drug use: No PHYSICAL EXAMINATION BP 128/81 (BP Site: Left Arm, BP Position: Sitting) Pulse (!) 58 Wt 113.9 kg (251 lb) SpO2 95% BMI 37.89 kg/m GENERAL EXAM: General appearance: NAD, pleasant. HEENT: NC/AT, nasal congestion absent, no oral lesions, membranes moist. Lungs: CTA bilaterally. CV: RRR nl S1, S2. No carotid bruits. Extr: No cyanosis, clubbing or edema. Skin: Cool to touch. NEUROLOGICAL EXAM: General: Awake, alert, oriented x3 (person,place,time), speech fluent, no dysarthria; comprehension, naming, repetition intact. Short and long wall mining machine tender memory intact. Fund of knowledge grossly normal by MOCA. CN: PERRL, fundi appear normal including no evidence of papilledema, EOMI except for noted exotropia of the left eye, VFF to confrontation, facial sensation intact but face weakness of central natureon left, impaired hearing on left., bilaterally, palate and tongue movements are intact and symmetric. SCM and trapezius strength normal. Motor: Normal tone, bulk and strength (5/5) bilaterally (throughout extremities x4). No pro drift. Reflexes: 2/4 and symmetric, plantar stimulation is flexor. Coordination: FNF with dysmetria and possible intention tremor in LUE, JESSICA impaired in RUE, HTS intact. Postural tremor of the head. Sensation: Light touch, pin and vibration near absent on right side of body. Gait: Narrow based and stable but question of decreased stride in LUE and impaired arm swing in RUE. Romberg normal. Assessment and Plan: ASSESSMENT/PLAN: 1. Tremor - ICD9: 781.0, ICD10: R25.1 (primary diagnosis) 2. History of traumatic brain injury - ICD9: V15.52, ICD10: Z87.820 3. Diplopia - ICD9: 368.2, ICD10: H53.2 4. Incoordination - ICD9: 781.3, ICD10: R27.9 5. Abnormality of gait - ICD9: 781.2, ICD10: R26.9 Patient with chronic neurologic deficits associated with TBI that patient reports as occurring ~50 years ago with more details as provided by patient as documented above. 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 At present, patient with multifocal neuro deficitsincluding sensory, motor, coordination. A postural tremor is noted in the head, however, no significant tremor noted in LUE. While tremors in fact may be of essential nature and unrelated to head injury, I am also uncertain if more recent COMMERCIAL CR[employer]BER events or if what is referred to as a tremor, might actual represent focal motor seizure activity. D/w pt and will get MRI brain to reevaluate extent of TBIwhile also looking for unrelated COMMERCIAL CRABBER events such as more recent strokes to explain multifocal nature of neuro findings. Will also get EEG to evaluate for epileptiform abnormalities. Treatment plan will be determined once these results are known. If not suggestive of a COMMERCIAL CRABBER cause, may consider trial of Primidone or Topamax to see if relief of tremors. 6. Claustrophobia - ICD9: 300.29, ICD10: F40.240 - LORAZEPAM 0.5 MG TABLET - to be given prior to MRI as per Rx (see current meds). SE and ADRs d/w pt. Pt agrees with plan as above. Follow up after testing or sooner prn. Saul Gil MD I spent a total of 45+ minutes on the date of the service which included preparing to see the patient, [id number] patient care, completing clinical documentation, obtaining and/or reviewing separately obtained history, performing a medically appropriate examination, counseling and educating the pa tient/family/caregiver, and ordering medications, tests, or procedures. * Rashid Jain LPN - 10/21/2024 2:26 PM EDT 10/15/2024 PROMIS Global Health Physical Health Summary Physical health: Very good Everyday physical activity, ability: Mostly Fatigue: Mild Pain level: 2 General health: Good Social activities/roles, ability: Very good Physical Health T-Score 50.8 (Very Good) Physical Health Percentile 53 PROMIS Global Health Mental Health Summary Quality of life: Very good Mental health (mood,thinking): Very good Social satisfaction: Very good Emotional problems (anxious,depressed): Never Mental Health T-Score 56 (Excellent) Mental Health Percentile 73 Percentiles provide an indication of how a patient's score ranks in relation to the [place] general population. > 31st percentile is within normal limits or better *< 31st percentile is at least SD worse than population, which may be clinically relevant < 16th percentile is at least 1 SD worse than population and warrants attention 10/15/2024 Sleep Apnea Probability Snores loudly: Yes Tired, fatigued or sleepy in daytime: No Stops breathing or choking/gasping during sleep: No High blood pressure: No Sleep Apnea Probability Score: 47 (Sleep study not recommended) documented in [facility]25 NoteHNO ID: [id number] Author: RASHID JAIN LPN Service: ? Author Type: LICENSED NURSE Type: Progress Notes Filed: 10/21/2024 17:55 Note Text: 10/15/2024 PROMIS Global Health Physical Health Summary Physical health: Very good Everyday physical activity, ability: Mostly Fatigue: Mild Pain level: 2 General health: Good Social activities/roles, ability: Very good Physical Health T-Score 50.8 (Very Good) Physical Health Percentile 53 PROMIS Global Health Mental Health Summary Quality of life: Very good Mental health (mood,thinking): Very good Social satisfaction: Very good Emotional problems (anxious,depressed): Never Mental Health T-Score 56 (Excellent) Mental Health Percentile 73 Percentiles provide an indication of how a patient's score ranks in relation to the [place] general population. > 31st percentile is within normal limits or better *< 31st percentile is at least ? SD worse than population, which may be clinically relevant < 16th percentile is at least 1 SD worse than population and warrants attention 10/15/2024 Sleep Apnea Probability Snores loudly: Yes Tired, fatigued or sleepy in daytime: No Stops breathing or choking/gasping during sleep: No High blood pressure: No Sleep Apnea Probability Score: 47 (Sleep study not recommended)[facility]03-27-2025 Telephone encounter Note* Telephone Encounter - Malissa Perez MA - 10/17/2024 12:19 PM EDT Cardio consult faxed to [facility] Malissa Perez MA [facility]03-27-2025 Miscellaneous Notes* Telephone Encounter - Malissa Perez MA - 10/17/2024 12:19 PM EDT Cardio consult faxed to [facility] Malissa Perez MA * Telephone Encounter - Jon Plasencia APRN.CNP - 10/17/2024 11:47 AM EDT Order placed for the cardiology consult. Jon Plasencia APRN.JOYCE * Telephone Encounter - Yonathan Brar RN - 10/17/2024 11:44 AM EDT Pt returned call and given provider's message below with verbalized understanding. Pt agreeable to see arresting gear operator, and states if she is not able to see [facility] arresting gear operator in [place], she prefers to see [facility] to stay in [place]. * Telephone Encounter - Kathleen Garibay RN - 10/17/2024 11:19 AM EDT Called and left a voicemail for the Patient on her home and cell phone to call back and ask for a nurse to receive the providers message. Kathleen Garibay RN * Telephone Encounter - Pete Morejon DO - 10/16/2024 8:06 PM EDT I am not sure what patient isn't understanding. Please inform patient that her labs were further reviewed by [employer]cre[employer] and are okay and no need for further work up after the specialist has seen these results. Her surgeon should have given her the results for the thyroid biopsy, which is Dr. Jimenez. From what I can see in her chart, the right lobe thyroid biopsy shows that the nodule is likely benign and normal appearing on cellular analysis Message was given to her on 08/22 for her ECHO results and why a cardiac MRI or seeing Per Diem Rn for further work up is needed to help further evaluate her shortness of breath. I am not sure what patient is still needing us to tell her to help her understand her symptoms Pete Morejon DO * Telephone Encounter - Mary Chavez LPN - 10/16/2024 7:36 PM EDT Images from the original note were not included. Mary Reyes tr [facility] My Chart Rx Pool I have had several tests since my complaint of shortness of breath but have not heard from anyone with results. My thyroid biopsy was benign according to the test results on my chart but I have not heard from anyone about results or follow-up. Also,a cardiac MRI was ordered but I don't understand why and would rather not have one if not necessary because I am claustrophobic. I was referred to theHematology Dept and made an appointment even though I was not sure why, however the doctor called before I went to tell me he did not think it was necessary. I am not sure if any of this has anythingto do with my shortness of breath and have no idea where to go from here. I would like some information and direction. documented in this encounterC[facility]03-27-[facility] Telephone encounter Note * Telephone Encounter - Jon Plasencia APRN.CNP - 10/17/2024 11:47 AM EDT Order placed for the cardiology consult. Jon Plasencia APRN.CNP [facility]03-27-2025 Telephone encounter Note* Telephone Encounter - Yonathan Brar RN - 10/17/2024 11:44 AM EDT Pt returned call and given provider's message below with verbalized understanding. Pt agreeable to see arresting gear operator, and states if she is not able to see [facility] arresting gear operator in [place], she prefers to see [facility] to stay in [place]. [facility]03-27-[facility]25 Telephone encounter Note* Telephone Encounter - Kathleen Garibay RN - 10/17/2024 11:19 AM EDT Called and left a voicemail for the Patient on her home and cell phone to call back and ask for a nurse to receive the providers message. Kathleen Garibay RN [facility]03-26-2025 Telephone encounter Note* Telephone Encounter - Pete Morejon DO - 10/16/2024 8:06 PM EDT I am not sure what patient isn't understanding. Please inform patient that her labs were further reviewed by [employer]cre[employer] and are okay and no need for further work up after the specialist has seen these results. Her surgeon should have given her the results for the thyroid biopsy, which is Dr. Jimenez. From what I can see in her chart, the right lobe thyroid biopsy shows that the nodule is likely benign and normal appearing on cellular analysis Message was given to her on 08/22 for her ECHO results and why a cardiac MRI or seeing Per Diem Rn for further work up is needed to help further evaluate her shortness of breath. I am not sure what patient is still needing us to tell her to help her understand her symptoms Pete Morejon DO [facility]03-26-2025 Telephone encounter Note* Telephone Encounter - Mary Chavez LPN - 10/16/2024 7:36 PM EDT See telephone note [facility]03-26-2025 Telephone encounter Note* Telephone Encounter - Mary Chavez LPN - 10/16/2024 7:36 PM EDT Images from the original note were not included. Mary Reyes [facility] My Chart Rx Pool I have had several tests since my complaint of shortness of breath but have not heard from anyone with results. My thyroid biopsy was benign according to the test results on my chart but I have not heard from anyone about results or follow-up. Also,a cardiac MRI was ordered but I don't understand why and would rather not have one if not necessary because I am claustrophobic. I was referred to theHematology Dept and made an appointment even though I was not sure why, however the doctor called before I went to tell me he did not think it was necessary. I am not sure if any of this has anythingto do with my shortness of breath and have no idea where to go from here. I would like some information and direction. [facility]03-26-2025 Miscellaneous Notes* Telephone Encounter - Mary Garcia LPN - 10/16/2024 7:36 PM EDT See telephone note documented in this encounterC[facility]03-18-2025 Miscellaneous Notes* Telephone Encounter - Zulma Sinha RN - 10/08/2024 11:16 AM EDT Pt returning the call and notified of Dr. Morejon's information and referral to knitting tester. * Telephone Encounter - Gayle Sousa LPN - 10/03/2024 8:10 AM EDT Left message to return call. * Telephone Encounter - Pete Morejon DO - 10/02/2024 8:03 PM EDT Please inform patient that her recent labs show no signs of M protein but there are a few findings to suggest light chain findings. This is not a specific finding but I would recommend opinion by [employer] to determine if any other testing is needed Pete Morejon DO documented in this encounterC[facility]03-18-2025 Telephone encounter Note * Telephone Encounter - Zulma Sinha RN - 10/08/2024 11:16 AM EDT Pt returning the call and notified of Dr. Morejon's information and referral to knitting tester. [facility]03-13-2025 Telephone encounter Note* Telephone Encounter - Gayle Sousa LPN - 10/03/2024 8:10 AM EDT Left message to return call. [facility]03-12-2025 Telephone encounter Note* Telephone Encounter - Pete Morejon DO - 10/02/2024 8:03 PM EDT Please inform patient that her recent labs show no signs of M protein but there are a few findings to suggest light chain findings. This is not a specific finding but I would recommend opinion by [employer]cre[employer] to determine if any other testing is needed Pete Morejon DO [facility]02-24-2025 Telephone encounter Note* Telephone Encounter - Renetta Ross OCCA - 09/16/2024 4:10 PM EST Prescription Refill Information The patient has been identified by name and date of : Yes Caregiver verified no other encounters exist for this prescription request: Yes Caregiver confirmed with patient/requestor that no other refills are due, in the near future, with this provider at this time: Yes The last office visit in the department: 07/30/2024 Does the patient have a future office visit with this provider/department: No Requested Prescriptions Pending Prescriptions Disp Refills metoprolol succinate ER (TOPROL XL) 50 mg 24 hr tablet 90 tablet 3 Sig: Take 1 tablet by mouth once daily. CONCETTA Haynes September 16, 2024 4:10 PM [facility]02-24-2025 Miscellaneous Notes* Telephone Encounter - Renetta Ross OCCA - 09/16/2024 4:10 PM EST Prescription Refill Information The patient has been identified by name and date of : Yes Caregiver verified no other encounters exist for this prescription request: Yes Caregiver confirmed with patient/requestor that no other refills are due, in the near future, with this provider at this time: Yes The last office visit in the department: 07/30/2024 Does the patient have a future office visit with this provider/department: No Requested Prescriptions Pending Prescriptions Disp Refills metoprolol succinate ER (TOPROL XL) 50 mg 24 hr tablet 90 tablet 3 Sig: Take 1 tablet by mouth once daily. CONCETTA Haynes September 16, 2024 4:10 PM * Telephone Encounter - Renetta Ross OCCA - 09/16/2024 4:08 PM EST Images from the original note were not included. Mary Clement [facility] My Chart Rx Pool (supporting Pete Morejon DO)2 hours ago (1:45 PM) Could I please get a new prescription for my Metoprolol succinate Er. I have no more refills. Please send it to [facility]. Thank you. Mary Reyes documented in this encounterC[facility]02-24-2025 Telephone encounter Note * Telephone Encounter - Renetta Ross OCCA - 09/16/2024 4:08 PM EST Images from the original note were not included. Mary Reyes [facility] My Chart Rx Pool (supporting Pete Morejon DO)2 hours ago (1:45 PM) Could I please get a new prescription for my Metoprolol succinate Er. I have no more refills. Please send it to [facility]. Thank you. Mary Reyes [facility]02-24-2025 Telephone encounter Note* Telephone Encounter - Renetta Ross OCCA - 09/16/2024 4:08 PM EST Transitioned to telephone encounter per provider preference. CONCETTA Haynes [facility]02-24-2025 Miscellaneous Notes* Telephone Encounter - Renetta Ross OCCA - 09/16/2024 4:08 PM EST Transitioned to telephone encounter per provider preference. CONCETTA Haynes documented in this encounterC[facility]02-19-2025 Miscellaneous Notes* Telephone Encounter - Gayle Jimenez MD - 09/11/2024 12:33 PM EST Left message on VM Identified by number and name. Told patient thyroid biopsy was benign Recommend follow up US of thyroid in a year, can be taken care of by Dr. Morejon documented in this encounterC[facility]02-19-2025 Telephone encounter Note * Telephone Encounter - Gayle Jimenez MD - 09/11/2024 12:33 PM EST Left message on VM Identified by number and name. Told patient thyroid biopsy was benign Recommend follow up US of thyroid in a year, can be taken care of by Dr. Morejon [facility] Work Phone: [phone] Instructions* Patient Instructions* Nahomi Jama LPN - 09/09/2024 11:41 AM EST The following instructions are important for you related to your office visit today with the [facility]. Instructions After THYROID FINE NEEDLE ASPIRATION Please do not take aspirin or other blood thinners for the next few days. If you have bleeding from the needle site, hold pressure with a clean gauze. If the bleeding continues, contact our office immediately. I recommend taking Advil or Tylenol for the discomfort. An ice pack may improve your discomfort to the area. Contact our office immediately if you have any questions or concerns @ [phone]. Please make an appointment to follow up in one week with your physician and thank you for choosing the [facility]. If you note any additional difficulties, questions, or concerns, you should contact our office immediately @ [phone] and ask to be transferred to the General Surgery department. documented in this encounterC[facility]02-17-2025 NoteHNO ID: [id number] Author: NAHOMI JAMA LPN Service: ? Author Type: LICENSED NURSE Type: Procedures Filed: 09/12/2024 14:09 Note Text: UNIVERSAL PROTOCOL / SAFETY CHECKLIST Procedure to be Performed: Sign In: A Moment of CARE was completed. Personnel directly involved with the procedure wore the appropriate PPE (Personal Protective Equipment). No special equipment needed. Patient/Surrogate Stated/Verified: PATIENT VERIFIED(optional for EMERGENT procedures): Patient name, Date of , Relevant allergies, and The intended procedure Time Out Communication: Intended patient and procedure match the source documents. Consent documented and matches the intended procedure. Relevant labs, photos, and/or imaging studies have been reviewed. Correct side/site marked and visible. Medications required for procedure verified. No fire risk assessment and interventions applicable. No implant(s) inserted. Sign Out: SIGN OUT (optional for EMERGENT procedures): All specimen containers correctly labeled. All instruments, equipment, possible retained foreign bodies accounted for. Post-procedure follow-up management communicated and Plan of Care Visit completed when applicable. [facility] Procedure note* Nahomi Jama LPN - 09/09/2024 11:34 AM EST UNIVERSAL PROTOCOL / SAFETY CHECKLIST Procedure to be Performed: Sign In: A Moment of CARE was completed. Personnel directly involved with the procedure wore the appropriate PPE (Personal Protective Equipment). No special equipment needed. Patient/Surrogate Stated/Verified: PATIENT VERIFIED(optional for EMERGENT procedures): Patient name, Date of , Relevant allergies, and The intended procedure Time Out Communication: Intended patient and procedure match the source documents. Consent documented and matches the intended procedure. Relevant labs, photos, and/or imaging studies have been reviewed. Correct side/site marked and visible. Medications required for procedure verified. No fire risk assessment and interventions applicable. No implant(s) inserted. Sign Out: SIGN OUT (optional for EMERGENT procedures): All specimen containers correctly labeled. All instruments, equipment, possible retained foreign bodies accounted for. Post-procedure follow-up management communicated and Plan of Care Visit completed when applicable. Nahomi Jama LPN [facility]02-17-2025 Procedure note* Nahomi Jama LPN - 09/09/2024 11:34 AM EST UNIVERSAL PROTOCOL / SAFETY CHECKLIST Procedure to be Performed: Sign In: A Moment of CARE was completed. Personnel directly involved with the procedure wore the appropriate PPE (Personal Protective Equipment). No special equipment needed. Patient/Surrogate Stated/Verified: PATIENT VERIFIED(optional for EMERGENT procedures): Patient name, Date of , Relevant allergies, and The intended procedure Time Out Communication: Intended patient and procedure match the source documents. Consent documented and matches the intended procedure. Relevant labs, photos, and/or imaging studies have been reviewed. Correct side/site marked and visible. Medications required for procedure verified. No fire risk assessment and interventions applicable. No implant(s) inserted. Sign Out: SIGN OUT (optional for EMERGENT procedures): All specimen containers correctly labeled. All instruments, equipment, possible retained foreign bodies accounted for. Post-procedure follow-up management communicated and Plan of Care Visit completed when applicable. Nahomi Jama LPN documented in this encounterC[facility]02-17-2025 NoteHNO ID: [id number] Author: GAYLE JIMENEZ MD Service: ? Author Type: Physician Type: Progress Notes Filed: 09/12/2024 14:09 Note Text: Mary presents for US guided right thyroid nodule FNA. PROCEDURE NOTE: After informed consent was given and patient gives permission for the procedure, the patient was in the supine position with neck in slight extension. Appropriate time out protocol was followed. The ultrasound machine was used for real time imaging. The anterior neck skin was cleansed with a sterile surgical skin preparation. The skin and subcutaneous tissues were infiltrated with 1% xylocaine with epinephrine. The ultrasound transducer probe was brought up to localize the thyroid nodule. The right thyroid nodule was identified with the US transducer. It was about 2.5 cm in maximum dimension A 22 G needle was inserted into the nodule under US guidance. Several passes were made to ensure obtaining enough material. The needle was withdrawn. The specimen was placed in a cytology fixative solution (and also a sample for Afirma testing) and forwarded to pathology. The above was repeated with a new 22 G needle attached to a 10 cc syringe. This was done to ensure adequate sampling. This process was again repeated until adequate sampling was deemed to be achieved. The specimens were then forwarded to pathology. Hemostasis was achieved by pressure. A small bandaid was applied and patient told that could be removed tomorrow. No evidence of bleeding noted. Patient tolerated procedure well. Complications - none EBL - minimal PLAN: Wound care instructions given by clinic staff. Patient to follow up with telehealth visit next week. Patient acknowledges the above.[facility]02-17-2025 History of Present illness Narrative* Gayle Jimenez MD - 09/09/2024 11:27 AM EST Mary presents for US guided right thyroid nodule FNA. PROCEDURE NOTE: After informed consent was given and patient gives permission for the procedure, the patient was inthe supine position with neck in slight extension. Appropriate time out protocol was followed. The ultrasound machine was used for real time imaging. The anterior neck skin was cleansed with a sterile surgical skin preparation. The skin and subcutaneous tissues were infiltrated with 1% xylocaine with epinephrine. The ultrasound transducer probe was brought up to localize the thyroid nodule. The right thyroid nodule was identified with the US transducer. It was about 2.5 cm in maximum dimension A 22 G needle was inserted into the nodule under US guidance. Several passes were made to ensure obtaining enough material. The needle was withdrawn. The specimen was placed in a cytology fixative solution (and also a sample for Afirma testing) and forwarded topathology. The above was repeated with a new 22 G needle attached to a 10 cc syringe. This was done to ensure adequate sampling. This process was again repeated until adequate sampling was deemed to be achieved. The specimens were then forwarded to pathology. Hemostasis was achieved by pressure. A small bandaid was applied and patient told that could be removed tomorrow. No evidence of bleeding noted. Patient tolerated procedure well. Complications - none EBL - minimal PLAN: Wound care instructions given by clinic staff. Patient to follow up with telehealth visit next week. Patient acknowledges the above. [facility] Telephone encounter Note * Telephone Encounter - Zulma Gonzalez LPN - 09/02/2024 2:38 PM EST Patient notified of update, verbalizes understanding of instructions. Zulma Gonzalez LPN [facility]02-10-2025 Miscellaneous Notes* Telephone Encounter - Zulma Gonzalez LPN - 09/02/2024 2:38 PM EST Patient notified of update, verbalizes understanding of instructions. Zulma Gonzalez LPN * Telephone Encounter - Luna Bruce APRN.JOYCE - 09/02/2024 1:45 PM EST Just ignore those. We recently had a program update and I wonder if there are some glitches. Thank you, Luna Bruce APRN.CNP * Telephone Encounter - Gayle Sousa LPN - 09/02/2024 12:09 PM EST I received a message today at 11:55 concerning videos to watch about my condition. However the videos are about a colonoscopy I had done 08/09/2024. documented in [facility] Telephone encounter Note * Telephone Encounter - Luna Bruce APRN.JOYCE - 09/02/2024 1:45 PM EST Just ignore those. We recently had a program update and I wonder if there are some glitches. Thank you, Luna Bruce APRN.JOYCE [facility] Work Phone: [phone] Telephone encounter Note* Telephone Encounter - Gayle Sousa LPN - 09/02/2024 12:09 PM EST I received a message today at 11:55 concerning videos to watch about my condition. However the videos are about a colonoscopy I had done 08/09/2024. [facility]02-10[facility]25 NoteHNO ID: [id number] Author: GABI ROWAN MA Service: ? 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 Eyes: The patient denies glaucoma, NOTES eye injury/surgery, wears glasses or contacts. Ear/Nose/Throat: The patient denies allergies, denies hayfever, denies ear infections, and denies bloody noses. Cardiovascular: The patient denies chest pain, denies heart disease, denies high blood pressure,denies cardiac stent, denies prior heart attack, denies irregular heart beat, denies high cholesterol, denies poor circulation, denies heart failure, other cardiac issues, denies claudication, denies cold feet, denies peripheral arterial stent. Respiratory: The patient denies tuberculosis, denies pneumonia, denies frequent cough, denies pulmonary embolism, denies shortness of breath, and denies coughing up blood. Gastrointestinal: The patient NOTES difficulty swallowing, denies acid reflux, denies ulcers, denies vomiting, denies jaundice/hepatitis, denies gallbladder problems, denies black or tarry stools, denies hemorrhoids, denies bleeding from rectum, denies diverticulitis, denies constipation, denies diarrhea, denies loss of stool control, and denies hernias. Kidney/Bladder: The patient denies kidney stones, denies urine infections, and denies bloody urine. Skin: The patient denies a history of skin cancer, denies bleeding/changing moles, and denies a history of skin rash. Neurologic: The patient denies a history of epilepsy/convulsions, denies headaches, denies head/spinal injuries, and denies stroke/TIA. Psychiatric: The patient denies psychiatric medications, denies depression, and denies voices, denies substance abuse. Endocrine: The patient denies thyroid disorders, denies diabetes, and denies hormonal problems. Hematologic: The patient denies a history of bruising, denies bleeding, and denies anemia, denies blood clots. Infections: The patient denies a history of measles and mumps, denies rheumatic fever, and denies sexually transmitted diseases. Musculoskeletal: The patient denies back pain/injury, denies back problems, denies sciatica, denies knee/foot trouble, denies arthritis, or denies gout. When was patient's last Mammogram screening? 04/30/2024 Last Colonoscopy: 08/09/2024 Gabi Rowan [facility]02-10-2025 History of Present illness Narrative* Gabi Rowan, [place] - 09/02/2024 11:40 AM EST REVIEW OF SYSTEMS: General: The patient denies fatigue, denies weight loss, denies weight gain, denies feeling hot, and denies feelings of cold. Eyes: The patient denies glaucoma, NOTES eye injury/surgery, wears glasses or contacts. Ear/Nose/Throat: The patient denies allergies, denies hayfever, denies ear infections, and denies bloody noses. Cardiovascular: The patient denies chest pain, denies heart disease, denies high blood pressure,denies cardiac stent, denies prior heart attack, denies irregular heart beat, denies high cholesterol, denies poor circulation, denies heart failure, other cardiac issues, denies claudication, denies cold feet, denies peripheral arterial stent. Respiratory: The patient denies tuberculosis, denies pneumonia, denies frequent cough, denies pulmonary embolism, denies shortness of breath, and denies coughing up blood. Gastrointestinal: The patient NOTES difficulty swallowing, denies acid reflux, denies ulcers, denies vomiting, denies jaundice/hepatitis, denies gallbladder problems, denies black or tarry stools, denies hemorrhoids, denies bleeding from rectum, denies diverticulitis, denies constipation, denies diarrhea, denies loss of stool control, and denies hernias. Kidney/Bladder: The patient denies kidney stones, denies urine infections, and denies bloody urine. Skin: The patient denies a history of skin cancer, denies bleeding/changing moles, and denies a history of skin rash. Neurologic: The patient denies a history of epilepsy/convulsions, denies headaches, denies head/spinal injuries, and denies stroke/TIA. Psychiatric: The patient denies psychiatric medications, denies depression, and denies voices, denies substance abuse. Endocrine: The patient denies thyroid disorders, denies diabetes, and denies hormonal problems. Hematologic: The patient denies a history of bruising, denies bleeding, and denies anemia, denies blood clots. Infections: The patient denies a history of measles and mumps, denies rheumatic fever, and denies sexually transmitted diseases. Musculoskeletal: The patient denies back pain/injury, denies back problems, denies sciatica, deniesknee/foot trouble, denies arthritis, or denies gout. When was patient's last Mammogram screening? 04/30/2024 Last Colonoscopy: 08/09/2024 Gabi Rowan MA * Gayle Jimenez MD - 09/02/2024 11:05 AM EST Mary Reyes 1950 REFERRING PHYSICIAN: Jon Plasencia APRN* CHIEF COMPLAINT: Consult and Thyroid Nodule HPI: The patient is a 74 year old female presents with abnormal ultrasound of thyroid She denies globus symptoms. She denies new onset hoarseness. She denies swallowing problems She denies exposure to unusual radiation. She denies taking thyroid hormones. She notes no thyroid cancer in family. US 08/26/2024 - nodule - Mid right; size: 2.8 x 1.8 x 2 cm - FNA is advised PAST MEDICAL HISTORY Diagnosis Date Arthritis left knee, back Chronic kidney disease, stage 3a (HCC) 05/26/2023 Complication of anesthesia N/V DDD (degenerative disc disease), lumbar Diulus, Cole Diverticulosis of colon (without mention of hemorrhage) 05/27 Diverticulosis Head injury 1971 left hand numbness, decrease coordination on right (dominant) IFG (impaired fasting glucose) 03/2017 a1c 5.8% Insomnia, unspecified improved Mild atherosclerosis of carotid artery 2016 internal, 0-19% Papanicolaou smear of cervix with atypical squamous cells of undetermined significance (ASC-US) 2009 ASCUS HPV negative, Dr Whiteside Snoring Tremor left hand Unspecified essential hypertension borderline PAST SURGICAL HISTORY Procedure Laterality Date ARTHROSCOPY KNEE DIAGNOSTIC W/WO SYNOVIAL BX SPX 03/25/2003 Arthroscopy, knee LEFT ARTHRP ACETBLR/PROX FEM PROSTC AGRFT/ALGRFT Left 03/27/[address] [place], [facility] ARTHRP KNE CONDYLE&PLATU MEDIAL&LAT COMPARTMENTS 10/04/10 Knee replacement, total Knee ARTHRP KNE CONDYLE&PLATU MEDIAL&LAT COMPARTMENTS Right 10/01/2018 Dr. Mata, [facility] COLONOSCOPY FLX DX W/COLLJ SPEC WHEN PFRMD 06/02/04 Repeat in COLONOSCOPY FLX DX W/COLLJ SPEC WHEN PFRMD 06/23/14 no polyps EYE SURGERY HX 06/27/14 left laeral rectus recession-strabismus F SI JOINT INJECTION 02/02/12 LIG/TRNSXJ FLP TUBE ABDL/VAG APPR UNI/BI 1982 Tubal ligation NEUROPLASTY &/TRANSPOS MEDIAN NRV CARPAL TUNNE 09/2000 Carpal tunnel decomp LEFT PAST SURGICAL HISTORY OF 1988 LEFT EYE, strabismus repair after injury PAST SURGICAL HISTORY OF 1970 skull fracture (ice skating) Current Outpatient Medications Medication Sig cholecalciferol, vitamin D3, (D3-2000 ORAL) Take by mouth. cyanocobalamin (VITAMIN B-12) 1,000 mcg tab Take 1,000 mcg by mouth once daily. triamcinolone acetonide (KENALOG) 0.5 % cream Apply to affected area three times a day. vit A,C,R-Xxzr-Ysrmwv (PRESERVISION AREDS) 2,148 mcg-113 mg-45 mg-17.4mg tab Take 1 tablet by mouthdaily with breakfast. metoprolol succinate ER (TOPROL XL) 50 mg 24 hr tablet Take 1 tablet by mouth once daily. metroNIDAZOLE (METROGEL) 0.75 % Topical Gel Apply to affected area twice daily. acetaminophen (TYLENOL EXTRA STRENGTH) 500 mg tablet Take 1,000 mg by mouth every 8 hours as needed. aspirin, enteric coated (ASPIRIN, ENTERIC COATED) 81 mg EC tablet Take 81 mg by mouth once daily. No current facility-administered medications for this visit. ALLERGIES: Vicodin [Hydrocodone-Acetaminophen] and Vioxx [Rofecoxib] PERSONAL HISTORY: Social History Tobacco Use Smoking status: Never Smokeless tobacco: Never Vaping Use Vaping status: Never Used Substance Use Topics Alcohol use: Yes Comment: 6 per year Drug use: No FAMILY HISTORY Problem Relation Age of Onset Heart Mother atrial fibrilation/diverticulitis/osteoporosis Stroke Father Breast Cancer Maternal Grandmother Stroke Maternal Grandmother Stroke Paternal Grandfather Heart Brother REVIEW OF SYSTEMS: General: The patient denies fatigue, denies weight loss, denies weight gain, denies feeling hot, and denies feelings of cold. Eyes: The patient denies glaucoma, NOTES eye injury/surgery, wears glasses or contacts. Ear/Nose/Throat: The patient denies allergies, denies hayfever, denies ear infections, and denies bloody noses. Cardiovascular: The patient denies chest pain, denies heart disease, denies high blood pressure,denies cardiac stent, denies prior heart attack, denies irregular heart beat, denies high cholesterol, denies poor circulation, denies heart failure, other cardiac issues, denies claudication, denies cold feet, denies peripheral arterial stent. Respiratory: The patient denies tuberculosis, denies pneumonia, denies frequent cough, denies pulmonary embolism, denies shortness of breath, and denies coughing up blood. Gastrointestinal: The patient NOTES difficulty swallowing, denies acid reflux, denies ulcers, denies vomiting, denies jaundice/hepatitis, denies gallbladder problems, denies black or tarry stools, denies hemorrhoids, denies bleeding from rectum, denies diverticulitis, denies constipation, denies diarrhea, denies loss of stool control, and denies hernias. Kidney/Bladder: The patient denies kidney stones, denies urine infections, and denies bloody urine. Skin: The patient denies a history of skin cancer, denies bleeding/changing moles, and denies a history of skin rash. Neurologic: The patient denies a history of epilepsy/convulsions, denies headaches, denies head/spinal injuries, and denies stroke/TIA. Psychiatric: The patient denies psychiatric medications, denies depression, and denies voices, denies substance abuse. Endocrine: The patient denies thyroid disorders, denies diabetes, and denies hormonal problems. Hematologic: The patient denies a history of bruising, denies bleeding, and denies anemia, denies blood clots. Infections: The patient denies a history of measles and mumps, denies rheumatic fever, and denies sexually transmitted diseases. Musculoskeletal: The patient denies back pain/injury, denies back problems, denies sciatica, deniesknee/foot trouble, denies arthritis, or denies gout. PHYSICAL EXAMINATION: General: The patient is 74 year old female, well nourished, well hydrated in no acute distress. Thepatient is oriented to time, place, and person. VITALS: Blood pressure 133/82, pulse 63, weight 115.7 kg (255 lb), SpO2 95%. There is no height or weight on file to calculate BMI. Head: Normal cephalic, atraumatic Eyes: pupils are equally round, sclera are clear/anicteric, wearing glasses Neck is supple with no tracheal deviation, no masses noted Cardiac: normal heart sounds, regular Respiratory: Normal respiratory excursion and pattern. Abdominal exam: benign Extremities: no clubbing, cyanosis or edema. Neuro: non focal Psych: normal mood The sensitive examination was discussed with the Patient or Patient's Authorized Executive Relations Specialist. Asapplicable, any other physician, advance practice provider, medical student, or other health professional student that will be observing or involved in the sensitive examination for educational or training purposes was discussed with the Patient or Authorized Executive Relations Specialist. The Patient or Authorized Executive Relations Specialist has agreed to proceed with the sensitive examination. (Sensitive examination includes inspection and/or palpation of the breasts, pelvis, prostate and anorectal regions) Assessment IMPRESSION: abnormal ultrasound of thyroid PLAN: I have discussed the above with the patient. I have offered US guided FNA of thyroid nodule on right lobe. I have explained the procedure to the patient. I have counseled the patient as to the risks of the procedure, including but not limited to: infection, bleeding, injury to any blood vessels/nerves, scar tissue, wound infections, complications of anesthesia, etc. - the patient understands. The patient wishes to proceed. I have answered all questions to the patient s satisfaction and the patient has no further questions. I have confirmed and edited as necessary, the PFSH and ROS obtained by others. Consultation requested by Jon Plasencia for an opinion regarding patient's abnormal ultrasound of thyroid. My final recommendations will be communicated back to the requesting physician by way of shared Medical record or letter to requesting physician via US mail. . Diagnoses: (R93.89) Abnormal ultrasound of thyroid gland Medical Decision Making: Problems: Moderate: New problem with uncertain prognosis Risk: Low: Low risk from testing/treatment Medical Decision Making Level: 3 - Low Gayle Jimenez MD documented [facility] NoteHNO ID: [id number] Author: GAYLE JIMENEZ MD Service: ? Author Type: Physician Type: Progress Notes Filed: 09/03/2024 14:13 Note Text: Mary Reyes 1950 REFERRING PHYSICIAN: Jon Plasencia APRN* CHIEF COMPLAINT: Consult and Thyroid Nodule HPI: The patient is a 74 year old female presents with abnormal ultrasound of thyroid She denies globus symptoms. She denies new onset hoarseness. She denies swallowing problems She denies exposure to unusual radiation. She denies taking thyroid hormones. She notes no thyroid cancer in family. US 08/26/2024 - nodule - Mid right; size: 2.8 x 1.8 x 2 cm - FNA is advised PAST MEDICAL HISTORY Diagnosis Date Arthritis left knee, back Chronic kidney disease, stage 3a (HCC) 05/26/2023 Complication of anesthesia N/V DDD (degenerative disc disease), lumbar Diulus, Cole Diverticulosis of colon (without mention of hemorrhage) 05/27 Diverticulosis Head injury 1971 left hand numbness, decrease coordination on right (dominant) IFG (impaired fasting glucose) 03/2017 a1c 5.8% Insomnia, unspecified improved Mild atherosclerosis of carotid artery 2016 internal, 0-19% Papanicolaou smear of cervix with atypical squamous cells of undetermined significance (ASC-US) 2009 ASCUS HPV negative, Dr Whiteside Snoring Tremor left hand Unspecified essential hypertension borderline PAST SURGICAL HISTORY Procedure Laterality Date ARTHROSCOPY KNEE DIAGNOSTIC W/WO SYNOVIAL BX SPX 03/25/2003 Arthroscopy, knee LEFT ARTHRP ACETBLR/PROX FEM PROSTC AGRFT/ALGRFT Left 03/27/[address] [place], [facility] ARTHRP KNE CONDYLEANDPLATU MEDIALANDLAT COMPARTMENTS 10/04/10 Knee replacement, total Knee ARTHRP KNE CONDYLEANDPLATU MEDIALANDLAT COMPARTMENTS Right 10/01/2018 Dr. Mata, [facility] COLONOSCOPY FLX DX W/COLLJ SPEC WHEN PFRMD 06/02/04 Repeat in COLONOSCOPY FLX DX W/COLLJ SPEC WHEN PFRMD 06/23/14 no polyps EYE SURGERY HX 06/27/14 left laeral rectus recession-strabismus F SI JOINT INJECTION 02/02/12 LIG/TRNSXJ FLP TUBE ABDL/VAG APPR UNI/BI 1982 Tubal ligation NEUROPLASTY AND/TRANSPOS MEDIAN NRV CARPAL TUNNE 09/2000 Carpal tunnel decomp LEFT PAST SURGICAL HISTORY OF 1988 LEFT EYE, strabismus repair after injury PAST SURGICAL HISTORY OF 1970 skull fracture (ice skating) Current Outpatient Medications Medication Sig cholecalciferol, vitamin D3, (D3-2000 ORAL) Take by mouth. cyanocobalamin (VITAMIN B-12) 1,000 mcg tab Take 1,000 mcg by mouth once daily. triamcinolone acetonide (KENALOG) 0.5 % cream Apply to affected area three times a day. vit A,C,R-Fcez-Idhhva (PRESERVISION AREDS) 2,148 mcg-113 mg-45 mg-17.4mg tab Take 1 tablet by mouth daily with breakfast. metoprolol succinate ER (TOPROL XL) 50 mg 24 hr tablet Take 1 tablet by mouth once daily. metroNIDAZOLE (METROGEL) 0.75 % Topical Gel Apply to affected area twice daily. acetaminophen (TYLENOL EXTRA STRENGTH) 500 mg tablet Take 1,000 mg by mouth every 8 hours as needed. aspirin, enteric coated (ASPIRIN, ENTERIC COATED) 81 mg EC tablet Take 81 mg by mouth once daily. No current facility-administered medications for this visit. ALLERGIES: Vicodin [Hydrocodone-Acetaminophen] and Vioxx [Rofecoxib] PERSONAL HISTORY: Social History Tobacco Use Smoking status: Never Smokeless tobacco: Never Vaping Use Vaping status: Never Used Substance Use Topics Alcohol use: Yes Comment: 6 per year Drug use: No FAMILY HISTORY Problem Relation Age of Onset Heart Mother atrial fibrilation/diverticulitis/osteoporosis Stroke Father Breast Cancer Maternal Grandmother Stroke Maternal Grandmother Stroke Paternal Grandfather Heart Brother REVIEW OF SYSTEMS: General: The patient denies fatigue, denies weight loss, denies weight gain, denies feeling hot, and denies feelings of cold. Eyes: The patient denies glaucoma, NOTES eye injury/surgery, wears glasses or contacts. Ear/Nose/Throat: The patient denies allergies, denies hayfever, denies ear infections, and denies bloody noses. Cardiovascular: The patient denies chest pain, denies heart disease, denies high blood pressure,denies cardiac stent, denies prior heart attack, denies irregular heart beat, denies high cholesterol, denies poor circulation, denies heart failure, other cardiac issues, denies claudication, denies cold feet, denies peripheral arterial stent. Respiratory: The patient denies tuberculosis, denies pneumonia, denies frequent cough, denies pulmonary embolism, denies shortness of breath, and denies coughing up blood. Gastrointestinal: The patient NOTES difficulty swallowing, denies acid reflux, denies ulcers, denies vomiting, denies jaundice/hepatitis, denies gallbladder problems, denies black or tarry stools, denies hemorrhoids, denies bleeding from rectum, denies diverticulitis, denies constipation, denies diarrhea, denies loss of stool control, and denies hernias. Kid (more content not included)...[facility]02-06-2025 Telephone encounter Note* Telephone Encounter - Suze Lyon RN - 08/29/2024 11:56 AM EST Patient calls and notified of results and providers instructions. Patient verbalizes understanding. Transferred to schedule consult to general surgery. Suze Lyon RN [facility]02-06-2025 Miscellaneous Notes* Telephone Encounter - Suze Lyon RN - 08/29/2024 11:56 AM EST Patient calls and notified of results and providers instructions. Patient verbalizes understanding. Transferred to schedule consult to general surgery. Suze Lyon RN * Telephone Encounter - Gayle Sousa LPN - 08/28/2024 3:02 PM EST Left message to return call. * Telephone Encounter - Jon Plasencia APRN.CNP - 08/28/2024 12:33 PM EST Please let her know that she has thyroid nodules and radiology is recommending she have a fine needle biopsy. Please assist her to schedule for this. Jon Plasencia APRN.JOYCE documented in this [facility] Telephone encounter Note * Telephone Encounter - Gayle Sousa LPN - 08/28/2024 3:02 PM EST Left message to return call. [facility]02-[facility] Telephone encounter Note* Telephone Encounter - Jon Plasencia APRN.CNP - 08/28/2024 12:33 PM EST Please let her know that she has thyroid nodules and radiology is recommending she have a fine needle biopsy. Please assist her to schedule for this. Jon Plasencia APRN.CNP [facility]02-05-20[facility] Telephone encounter Note* Telephone Encounter - Amanda Nolen - 08/28/2024 11:15 AM EST Patient chose not to schedule MRI at this time due to not being satisfied with locations and available appointment times. [facility]02-[facility] Miscellaneous Notes* Telephone Encounter - Amanda Nolen - 08/28/2024 11:15 AM EST Patient chose not to schedule MRI at this time due to not being satisfied with locations and available appointment times. * Telephone Encounter - Kathleen Garibay RN - 08/28/2024 11:10 AM EST Pt called and is notified of previous results and instructions. Pt voices understanding. Transferred to scheduled to set up appt for MRI. Kathleen Garibay RN * Telephone Encounter - Raya Norman MA - 08/28/2024 9:28 AM EST LM for patient to contact office. Raya Norman MA * Telephone Encounter - Raya Norman MA - 08/27/2024 8:39 AM EST Spoke with fabienne delivery technician Sully Rosales, she informed me that it could be anywhere from 60-90 min, depending on the patient. LM for patient to contact office. Raya Norman MA * Telephone Encounter - Raya Norman MA - 08/26/2024 5:00 PM EST Patient notified of below. Encouraged patient to schedule and try to complete. She is asking how long the MRI will be. Informed pt that I will call her back tomorrow with an answer. Raya Norman MA * Telephone Encounter - Pete Morejon DO - 08/26/2024 4:52 PM EST Okay for her to take the Valium prior to the MRI If she can't do the MRI, then just needs to be seen by Per Diem Rn for further evaluation prior totesting further Pete Morejon DO The following approved medication requests have been transmitted electronically. Requested Prescriptions Signed Prescriptions Disp Refills iv contrast (will be provided with radiology test) 1 Each 0 Sig: MRI Cardiac w/Qflow Inject, intravenously, once for 1 dose. No IV access, insert saline lock prior to the beginning of sedation, infusion, injection of imaging exam. Discontinue saline lock postexam. If Pt has a central line or IVAD, may access for administration according to line specific nursing protocol. Once exam is complete flush line and de-access according to line specific nursing protocol in the MR contrast administration guidelines link Authorizing Provider: PETE MOREJON diazePAM (VALIUM) 10 mg tablet 1 tablet 1 Sig: Take 1 tablet by mouth once in interventional radiology for 1 dose. Authorizing Provider: PETE MOREJON DO * Telephone Encounter - Zulma Sinha RN - 08/26/2024 1:09 PM EST [facility] does not have Open MRI machines. What they do have is open- ended MRI's that provide more room. Discussed this with pt. She is still apprehensive about having this done. And she wouldlike to have the MRIs done as close to [place] as she can. * Telephone Encounter - Zulma Sinha RN - 08/26/2024 10:35 AM EST Called pt and notified [facility] unable to do the MRI cardiac test that pt needs to have done. In talkingwith pt, she states she cannot do a normal MRI as she is claustrophobic so she needs an open MRI. Will contact scheduling to find out if this test can be done as an open MRI and where it can be done.Will have them call pt then to schedule. * Telephone Encounter - Zulma Sinha RN - 08/26/2024 9:45 AM EST [facility] operations scheduler Nina called to notify Dr. Morejon that they do not do the Cardiac test that is needed. Attempted to notify pt. answered and states pt is currently in restroom. Will attempt to contact pt again in a few minutes to get all her testing scheduled. * Telephone Encounter - Blanca Aguirre - 08/22/2024 12:36 PM EST 1st attempt - left message for patient to return call. When she calls, soha keys schedule MRIs, labs and US ordered on 08/21/24 by PCP. Blanca Aguirre * Telephone Encounter - Kylie Bangura MA - 08/22/2024 9:49 AM EST Patient active MyChart. Patient notified via Netasq message. Please assist patient with scheduling the orders PCP placed. Kylie Bangura MA * Telephone Encounter - Pete Morejon DO - 08/21/2024 8:25 PM EST Please let her know that her CT chest shows IMPRESSION: Small nodules. No airspace opacities are seen. Right thyroid nodule. Right adrenal adenoma. We need to do further imaging of the thyroid gland to further evaluate this incidental finding. Order is placed Also her ECHO shows: The left ventricle is normal in size. There is mild concentric left ventricular hypertrophy. Left ventricular systolic function is normal. EF = 57 5% (2D biplane) Indeterminate left ventricular diastolic function. - The right ventricle is normal in size. Right ventricular systolic function is normal. - The left atrial cavity is mildly dilated. - Exam was compared with the prior echocardiographic exam performed on 04/15/2021 (Stress). 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 Please let her know that this means we need to do further testing of the heart with a cardiac MRI and urine and blood work that further evaluates this potential protein accumulation/change within thecardiac system/muscle of the heart. These tests are ordered then will need to see Per Diem Rn in the future as well. No signs of heart failure seen Pete Morejon DO [facility] Telephone encounter Note * Telephone Encounter - Kathleen Garibay RN - 08/28/2024 11:10 AM EST Pt called and is notified of previous results and instructions. Pt voices understanding. Transferred to scheduled to set up appt for MRI. Kathleen aGribay RN [facility]02-05-2025 Telephone encounter Note* Telephone Encounter - Raya Norman MA - 08/28/2024 9:28 AM EST LM for patient to contact office. Raya Norman MA [facility]02-04-2025 Telephone encounter Note* Telephone Encounter - Raya Norman MA - 08/27/2024 8:39 AM EST Spoke with [employer] delivery technician Sully Rosales, she informed me that it could be anywhere from 60-90 min, depending on the patient. LM for patient to contact office. Raya Norman MA [facility]02-03-2025 Telephone encounter Note* Telephone Encounter - Raya Norman MA - 08/26/2024 5:00 PM EST Patient notified of below. Encouraged patient to schedule and try to complete. She is asking how long the MRI will be. Informed pt that I will call her back tomorrow with an answer. Raya Norman MA [facility]02-03-2025 Telephone encounter Note* Telephone Encounter - Pete Morejon DO - 08/26/2024 4:52 PM EST Okay for her to take the Valium prior to the MRI If she can't do the MRI, then just needs to be seen by Per Diem Rn for further evaluation prior totesting further Pete Morejon DO The following approved medication requests have been transmitted electronically. Requested Prescriptions Signed Prescriptions Disp Refills iv contrast (will be provided with radiology test) 1 Each 0 Sig: MRI Cardiac w/Qflow Inject, intravenously, once for 1 dose. No IV access, insert saline lock prior to the beginning of sedation, infusion, injection of imaging exam. Discontinue saline lock postexam. If Pt has a central line or IVAD, may access for administration according to line specific nursing protocol. Once exam is complete flush line and de-access according to line specific nursing protocol in the MR contrast administration guidelines link Authorizing Provider: PETE MOREJON diazePAM (VALIUM) 10 mg tablet 1 tablet 1 Sig: Take 1 tablet by mouth once in interventional radiology for 1 dose. Authorizing Provider: PETE MOREJON DO [facility]02-03-2025 Telephone encounter Note* Telephone Encounter - Zulma Sinha RN - 08/26/2024 1:09 PM EST [facility] does not have Open MRI machines. What they do have is open- ended MRI's that provide more room. Discussed this with pt. She is still apprehensive about having this done. And she wouldlike to have the MRIs done as close to [place] as she can. [facility]02-03-2025 History of Present illness Narrative* Brianda Moser RDMS - 08/26/2024 11:30 AM EST Radiology Service Progress Note PATIENT NAME: Mary Reyes DATE OF SERVICE: August 26, 2024 TIME: 11:45 AM PATIENT IDENTITY VERIFICATION COMPLETED USING TWO (2) IDENTIFIERS: Name and Date of confirmedby patient verbally. FALL SCREENING: Has the patient had 2 falls in the last year or 1 fall with injury or currently using an Ambulatory Assistive Device (Walker, Cane, Wheelchair, Crutches, etc.)? No PATIENT GENDER DATA: Assigned female at . status: : No status:NO. PATIENT RELEVANT IMPLANT DATA REVIEWED: Not Applicable PATIENT PRESENTS WITH AN IMPLANTABLE OR ATTACHED DEPENDENCY DIRECTOR: No RADIOLOGY DEPARTMENT: Ultrasound PERIPHERAL IV DATA: Not applicable SIGNED BY: Brianda Moser RDMS RVZëo August 26, 2024 11:45 AM documented in this encounterC[facility]25 NoteHNO ID: [id number] Author: BRIANDA MOSER RDMS Service: ? Author Type: Garage Attendant Type: Progress Notes Filed: 08/26/2024 11:46 Note Text: Radiology Service Progress Note PATIENT NAME: Mary Reyes DATE OF SERVICE: August 26, 2024 TIME: 11:45 AM PATIENT IDENTITY VERIFICATION COMPLETED USING TWO (2) IDENTIFIERS: Name and Date of confirmed by patient verbally. FALL SCREENING: Has the patient had 2 falls in the last year or 1 fall with injury or currently using an Ambulatory Assistive Device (Walker, Cane, Wheelchair, Crutches, etc.)? No PATIENT GENDER DATA: Assigned female at . status: : No status: NO. PATIENT RELEVANT IMPLANT DATA REVIEWED: Not Applicable PATIENT PRESENTS WITH AN IMPLANTABLE OR ATTACHED DEPENDENCY DIRECTOR: No RADIOLOGY DEPARTMENT: Ultrasound PERIPHERAL IV DATA: Not applicable SIGNED BY: Brianda Moser RDMS RVT August 26, 2024 11:45 [facility]02-03-2025 Telephone encounter Note* Telephone Encounter - Zulma Sinha RN - 08/26/2024 10:35 AM EST Called pt and notified [facility] unable to do the MRI cardiac test that pt needs to have done. In talkingwith pt, she states she cannot do a normal MRI as she is claustrophobic so she needs an open MRI. Will contact scheduling to find out if this test can be done as an open MRI and where it can be done.Will have them call pt then to schedule. [facility]02-03-2025 Telephone encounter Note* Telephone Encounter - Zulma Sinha RN - 08/26/2024 9:45 AM EST [facility] operations scheduler Nina called to notify Dr. Morejon that they do not do the Cardiac test that is needed. Attempted to notify pt. answered and states pt is currently in restroom. Will attempt to contact pt again in a few minutes to get all her testing scheduled. [facility]01-30-2025 Telephone encounter Note* Telephone Encounter - Blanca Aguirre - 08/22/2024 12:36 PM EST 1st attempt - left message for patient to return call. When she calls, soha se schedule MRIs, labs and US ordered on 08/21/24 by PCP. Blanca Aguirre [facility]01-30-2025 Telephone encounter Note* Telephone Encounter - Kylie Bangura MA - 08/22/2024 9:49 AM EST Patient active MyChart. Patient notified via [employer] message. Please assist patient with scheduling the orders PCP placed. Kylie Bangura MA [facility]01-29-2025 Telephone encounter Note* Telephone Encounter - Pete Morejon DO - 08/21/2024 8:25 PM EST Please let her know that her CT chest shows IMPRESSION: Small nodules. No airspace opacities are seen. Right thyroid nodule. Right adrenal adenoma. We need to do further imaging of the thyroid gland to further evaluate this incidental finding. Order is placed Also her ECHO shows: The left ventricle is normal in size. There is mild concentric left ventricular hypertrophy. Left ventricular systolic function is normal. EF = 57 5% (2D biplane) Indeterminate left ventricular diastolic function. - The right ventricle is normal in size. Right ventricular systolic function is normal. - The left atrial cavity is mildly dilated. - Exam was compared with the prior echocardiographic exam performed on 04/15/2021 (Stress). 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 Please let her know that this means we need to do further testing of the heart with a cardiac MRI and urine and blood work that further evaluates this potential protein accumulation/change within thecardiac system/muscle of the heart. These tests are ordered then will need to see Per Diem Rn in the future as well. No signs of heart failure seen Pete Morejon DO [facility]01-23-2025 History of Present illness Narrative* Nahomi Landaverde RT(R) - 08/15/2024 10:00 AM EST Radiology Service Progress Note PATIENT NAME: Mary Reyes DATE OF SERVICE: August 15, 2024 TIME: 2:33 PM PATIENT IDENTITY VERIFICATION COMPLETED USING TWO (2) IDENTIFIERS: Name and Date of confirmedby patient verbally. FALL SCREENING: Has the patient had 2 falls in the last year or 1 fall with injury or currently using an Ambulatory Assistive Device (Walker, Cane, Wheelchair, Crutches, etc.)? No PATIENT GENDER DATA: Assigned female at . status: : No status:NO. PATIENT RELEVANT IMPLANT DATA REVIEWED: Yes PATIENT PRESENTS WITH AN IMPLANTABLE OR ATTACHED DEPENDENCY DIRECTOR: No RADIOLOGY DEPARTMENT: CT; Exam(s) Completed: Chest PERIPHERAL IV DATA: Not applicable SIGNED BY: RT Kevin(R) August 15, 2024 2:33 PM documented in this encounterC[facility]25 NoteHNO ID: [id number] Author: NAHOMI LANDAVERDE RT(Fidencio) Service: ? Author Type: Ep Tech Type: Progress Notes Filed: 08/15/2024 14:33 Note Text: Radiology Service Progress Note PATIENT NAME: Mary Reyes DATE OF SERVICE: August 15, 2024 TIME: 2:33 PM PATIENT IDENTITY VERIFICATION COMPLETED USING TWO (2) IDENTIFIERS: Name and Date of confirmed by patient verbally. FALL SCREENING: Has the patient had 2 falls in the last year or 1 fall with injury or currently using an Ambulatory Assistive Device (Walker, Cane, Wheelchair, Crutches, etc.)? No PATIENT GENDER DATA: Assigned female at . status: : No status: NO. PATIENT RELEVANT IMPLANT DATA REVIEWED: Yes PATIENT PRESENTS WITH AN IMPLANTABLE OR ATTACHED DEPENDENCY DIRECTOR: No RADIOLOGY DEPARTMENT: CT; Exam(s) Completed: Chest PERIPHERAL IV DATA: Not applicable SIGNED BY: RT Kevin(R) August 15, 2024 2:33 [facility] Note* Discharge Instr - Nursing - Jeimy Aquino RN - 08/09/2024 10:14 AM EST The patient received a copy of Colonoscopy discharge instructions that contain information for how to contact the physician who performed the procedure and when to seek medical care. [facility]01-17-2025 Miscellaneous Notes* Discharge Instr - Nursing - Jeimy Aquino RN - 08/09/2024 10:14 AM EST The patient received a copy of Colonoscopy discharge instructions that contain information for how to contact the physician who performed the procedure and when to seek medical care. documented in this encounterC[facility] History and physical note * Thom Ruiz MD - 08/09/2024 10:00 AM EST [employer] offered: Patient declines. Mary is a 73 year old who presents for an annual gynecologic exam without complaints. Postmenopausal: Yes HRT use: No. 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 LMP: Postmenopausal Age at Menarche: Age at First : Age at Menopause: [facility] [employer] History Comments: Sexual Activity: Yes; Male Contraception: No contraception data on record PAST MEDICAL HISTORY PAST MEDICAL HISTORY Diagnosis Date Arthritis left knee, back Chronic kidney disease, stage 3a (HCC) 05/26/2023 Complication of anesthesia N/V DDD (degenerative disc disease), lumbar Diulus, Cole Diverticulosis of colon (without mention of hemorrhage) 05/27 Diverticulosis Head injury 1971 left hand numbness, decrease coordination on right (dominant) IFG (impaired fasting glucose) 03/2017 a1c 5.8% Insomnia, unspecified improved Mild atherosclerosis of carotid artery 2016 internal, 0-19% Papanicolaou smear of cervix with atypical squamous cells of undetermined significance (ASC-US) 2009 ASCUS HPV negative, Dr Whiteside Snoring Tremor left hand Unspecified essential hypertension borderline PAST SURGICAL HISTORY PAST SURGICAL HISTORY Procedure Laterality Date ARTHROSCOPY KNEE DIAGNOSTIC W/WO SYNOVIAL BX SPX 03/25/2003 Arthroscopy, knee LEFT ARTHRP ACETBLR/PROX FEM PROSTC AGRFT/ALGRFT Left 03/27/[address] Mederos, [facility] ARTHRP KNE CONDYLE&PLATU MEDIAL&LAT COMPARTMENTS 10/04/10 Knee replacement, total Knee ARTHRP KNE CONDYLE&PLATU MEDIAL&LAT COMPARTMENTS Right 10/01/2018 Dr. Mata, [facility] COLONOSCOPY FLX DX W/COLLJ SPEC WHEN PFRMD 06/02/04 Repeat in COLONOSCOPY FLX DX W/COLLJ SPEC WHEN PFRMD 06/23/14 no polyps EYE SURGERY HX 06/27/14 left laeral rectus recession-strabismus F SI JOINT INJECTION 02/02/12 LIG/TRNSXJ FLP TUBE ABDL/VAG APPR UNI/BI 1982 Tubal ligation NEUROPLASTY &/TRANSPOS MEDIAN NRV CARPAL TUNNE 09/2000 Carpal tunnel decomp LEFT PAST SURGICAL HISTORY OF 1988 LEFT EYE, strabismus repair after injury PAST SURGICAL HISTORY OF 1970 skull fracture (ice skating) FAMILY HISTORY FAMILY HISTORY Problem Relation Age of Onset Heart Mother atrial fibrilation/diverticulitis/osteoporosis Stroke Father Breast Cancer Maternal Grandmother Stroke Maternal Grandmother Stroke Paternal Grandfather Heart Brother SOCIAL HISTORY Social History Tobacco Use Smoking status: Never Smokeless tobacco: Never Vaping Use Vaping status: Never Used Substance Use Topics Alcohol use: Yes Comment: 6 per year Drug use: No REVIEW OF SYSTEMS Abdomen: No abdominal pain, nausea, vomiting, diarrhea, or constipation. No bloating, early satiety, indigestion, or increased flatulence. Bladder: No dysuria, gross hematuria, urinary frequency, urinary urgency, or incontinence Breast: No breast lumps, nipple d/c, overlying skin changes, redness or skin retraction Allergies and current medication updated:Yes SENSITIVE EXAM: The sensitive examination was discussed with the Patient or Patient's Authorized Executive Relations Specialist. As applicable, any other physician, advance practice provider, medical student, or other health professional student that will be observing or involved in the sensitive examination for educational or training purposes was discussed with the Patient or Authorized Executive Relations Specialist. The Patient or Authorized Executive Relations Specialist has agreed to proceed with the sensitive examination. (Sensitive examination includes inspection and/or palpation of the breasts, pelvis, prostate and anorectal regions). EXAM: BP 130/86 Ht 5' 8.25 (1.73m) Wt 255 lb (115.7kg) BMI 38.47 kg/(m^2). GENERAL: pleasant, female in no apparent distress HEENT: Normocephalic, atraumatic, mucus membranes moist, and no lesions NECK: Supple, full range of motion, no adenopathy, and thyroid normal DERMATOLOGY: Normal, without lesions, non-icteric, and non-hirsute BREAST: soft, non-tender, symmetric, no dominant mass, normal nipple-areolar complex, no lymphadenopathy, and no nipple discharge ABDOMEN: soft, non-tender, and no masses PELVIC: external genitalia normal, normal Bartholin's glands, urethra, [place]'s glands, no vulvar lesions, good vaginal support, physiologic discharge present, normal appearing perineal body and perianal region, cervix appears flush with vagina BIMANUAL: uterus feels normal size, shape and consistency, no adnexal masses, and non-tender- difficult exam due to habitus RECTOVAGINAL: deferred. NEURO: alert and oriented x3,exam grossly non-focal EXTREMITIES: normal ASSESSMENT/PLAN: 1) Health maintenance: Pap/HPV screening no longer needed Mammogram ordered Mammogram up to date Nutrition, exercise and routine health maintenance exams reviewed. Colon cancer screening: colonoscopy ordered 2) Follow up one year or sooner as needed 3) triamcinolone ordered- use one per week Savanah Don MD UPDATED HISTORY AND PHYSICAL EXAMINATION SERVICE DATE: 08/09/2024 SERVICE TIME: 8:49 AM PHYSICAL EXAM MUST BE COMPLETED ON ADMISSION The History and Physical (completed in the past 30 days) has been reviewed and the patient has beenexamined. The contents accurately reflect the patient's condition with the following additions or revisions since the H&P was completed. Examination indicates no changes. This H&P can be found in the attached. SIGNATURE: Thom Ruiz III, MD PATIENT NAME: Mary Reyes DATE: August 09, 2024 TIME: 8:49 AM [facility]01-17-2025 History and physical note* Thom Ruiz MD - 08/09/2024 10:00 AM EST [employer] offered: Patient declines. Mary is a 73 year old who presents for an annual gynecologic exam without complaints. Postmenopausal: Yes HRT use: No. 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 LMP: Postmenopausal Age at Menarche: Age at First : Age at Menopause: [facility] [employer] History Comments: Sexual Activity: Yes; Male Contraception: No contraception data on record PAST MEDICAL HISTORY PAST MEDICAL HISTORY Diagnosis Date Arthritis left knee, back Chronic kidney disease, stage 3a (HCC) 05/26/2023 Complication of anesthesia N/V DDD (degenerative disc disease), lumbar Diulus, Cole Diverticulosis of colon (without mention of hemorrhage) 05/27 Diverticulosis Head injury 1970 left hand numbness, decrease coordination on right (dominant) IFG (impaired fasting glucose) 03/2017 a1c 5.8% Insomnia, unspecified improved Mild atherosclerosis of carotid artery 2016 internal, 0-19% Papanicolaou smear of cervix with atypical squamous cells of undetermined significance (ASC-US) 2009 ASCUS HPV negative, Dr Whiteside Snoring Tremor left hand Unspecified essential hypertension borderline PAST SURGICAL HISTORY PAST SURGICAL HISTORY Procedure Laterality Date ARTHROSCOPY KNEE DIAGNOSTIC W/WO SYNOVIAL BX SPX 03/25/2003 Arthroscopy, knee LEFT ARTHRP ACETBLR/PROX FEM PROSTC AGRFT/ALGRFT Left 03/27/[address] Mederos, [facility] ARTHRP KNE CONDYLE&PLATU MEDIAL&LAT COMPARTMENTS 10/04/10 Knee replacement, total Knee ARTHRP KNE CONDYLE&PLATU MEDIAL&LAT COMPARTMENTS Right 10/01/2018 Dr. Mata, [facility] COLONOSCOPY FLX DX W/COLLJ SPEC WHEN PFRMD 06/02/04 Repeat in COLONOSCOPY FLX DX W/COLLJ SPEC WHEN PFRMD 06/23/14 no polyps EYE SURGERY HX 06/27/14 left laeral rectus recession-strabismus F SI JOINT INJECTION 02/02/12 LIG/TRNSXJ FLP TUBE ABDL/VAG APPR UNI/BI 1982 Tubal ligation NEUROPLASTY &/TRANSPOS MEDIAN NRV CARPAL TUNNE 09/2000 Carpal tunnel decomp LEFT PAST SURGICAL HISTORY OF 1988 LEFT EYE, strabismus repair after injury PAST SURGICAL HISTORY OF 1970 skull fracture (ice skating) FAMILY HISTORY FAMILY HISTORY Problem Relation Age of Onset Heart Mother atrial fibrilation/diverticulitis/osteoporosis Stroke Father Breast Cancer Maternal Grandmother Stroke Maternal Grandmother Stroke Paternal Grandfather Heart Brother SOCIAL HISTORY Social History Tobacco Use Smoking status: Never Smokeless tobacco: Never Vaping Use Vaping status: Never Used Substance Use Topics Alcohol use: Yes Comment: 6 per year Drug use: No REVIEW OF SYSTEMS Abdomen: No abdominal pain, nausea, vomiting, diarrhea, or constipation. No bloating, early satiety, indigestion, or increased flatulence. Bladder: No dysuria, gross hematuria, urinary frequency, urinary urgency, or incontinence Breast: No breast lumps, nipple d/c, overlying skin changes, redness or skin retraction Allergies and current medication updated:Yes SENSITIVE EXAM: The sensitive examination was discussed with the Patient or Patient's Authorized Executive Relations Specialist. As applicable, any other physician, advance practice provider, medical student, or other health professional student that will be observing or involved in the sensitive examination for educational or training purposes was discussed with the Patient or Authorized Executive Relations Specialist. The Patient or Authorized Executive Relations Specialist has agreed to proceed with the sensitive examination. (Sensitive examination includes inspection and/or palpation of the breasts, pelvis, prostate and anorectal regions). EXAM: BP 130/86 Ht 5' 8.25 (1.73m) Wt 255 lb (115.7kg) BMI 38.47 kg/(m^2). GENERAL: pleasant, female in no apparent distress HEENT: Normocephalic, atraumatic, mucus membranes moist, and no lesions NECK: Supple, full range of motion, no adenopathy, and thyroid normal DERMATOLOGY: Normal, without lesions, non-icteric, and non-hirsute BREAST: soft, non-tender, symmetric, no dominant mass, normal nipple-areolar complex, no lymphadenopathy, and no nipple discharge ABDOMEN: soft, non-tender, and no masses PELVIC: external genitalia normal, normal Bartholin's glands, urethra, [place]'s glands, no vulvar lesions, good vaginal support, physiologic discharge present, normal appearing perineal body and perianal region, cervix appears flush with vagina BIMANUAL: uterus feels normal size, shape and consistency, no adnexal masses, and non-tender- difficult exam due to habitus RECTOVAGINAL: deferred. NEURO: alert and oriented x3,exam grossly non-focal EXTREMITIES: normal ASSESSMENT/PLAN: 1) Health maintenance: Pap/HPV screening no longer needed Mammogram ordered Mammogram up to date Nutrition, exercise and routine health maintenance exams reviewed. Colon cancer screening: colonoscopy ordered 2) Follow up one year or sooner as needed 3) triamcinolone ordered- use one per week Svaanah Don MD UPDATED HISTORY AND PHYSICAL EXAMINATION SERVICE DATE: 08/09/2024 SERVICE TIME: 8:49 AM PHYSICAL EXAM MUST BE COMPLETED ON ADMISSION The History and Physical (completed in the past 30 days) has been reviewed and the patient has beenexamined. The contents accurately reflect the patient's condition with the following additions or revisions since the H&P was completed. Examination indicates no changes. This H&P can be found in the attached. SIGNATURE: Thom Ruiz III, MD PATIENT NAME: Mary Reyes DATE: August 09, 2024 TIME: 8:49 AM documented in [facility] encounterC[facility] NoteHNO ID: [id number] Author: PETE MOREJON, DO Service: ? Author Type: Physician Type: Progress Notes Filed: 07/30/2024 16:16 Note Text: Mary Reyes is a 73 year old female here for a Medicare wellness visit. Medicare Health Risk Assessment General Health Very good Exercise: Minutes/Day 10 min Exercise: Days/Week 1 day Alcohol: Daily Use Monthly or less Alcohol: Drinks/Day 1 or 2 Alcohol: 6 or more drinks Never Feel off balance No Concerns: Teeth/Dentures No Concerns: Sexual function No Troubled by feelings None of the above Frequency: Eating healthy diet More than half the days ADLs requiring help None of the above Safety precautions in home/vehicle No Smoke, vape, chews tobacco No Difficulty hearing No Difficulty seeing No Current Providers Specialists: I have reviewed specialist-related care of the patient in the medical record. Medical/Family history review Reviewed and updated problem list, medical/surgical/family/social history, medications, and allergies. Opioid use review Opioid Medications (last 90 days) No data to display Anxiety/Depression screening PHQ-2 Score: 0 (Lower risk for depression) Recommendation: no further intervention at this time Cognitive screening Mini Cog Score: 5 Cognitive screening reviewed and No further action needed (score 3-5). Functional Observation Was the patient's Timed Up AND Go test unsteady or >= 12 seconds? No Advance Care Planning Surrogate decision maker and/or advance care plan documented Measurements BP 126/70 Pulse 84 Temp 36.7 ?C (98 ?F) (Left Tympanic) Resp 20 Wt 115.7 kg (255 lb) BMI 38.49 kg/m? Vision Screening: Follows with optometry/ophthalmology Assessment/Plan Medicare annual wellness visit, subsequent (Z00.) - Counseled on healthy diet and regular exercise - Fall avoidance information provided - Personalized prevention plan provided - Discussed need for and benefit of weight loss. BMI 38.49 kg/(m2) Pete Morejon [facility]01-07-2025 History of Present illness Narrative* Pete Morejon, DO - 07/30/2024 4:15 PM EST Images from the original note were not included. Mary Reyes is a 73 year old female here for a Medicare wellness visit. Medicare Health Risk Assessment General Health Very good Exercise: Minutes/Day 10 min Exercise: Days/Week 1 day Alcohol: Daily Use Monthly or less Alcohol: Drinks/Day 1 or 2 Alcohol: 6 or more drinks Never Feel off balance No Concerns: Teeth/Dentures No Concerns: Sexual function No Troubled by feelings None of the above Frequency: Eating healthy diet More than half the days ADLs requiring help None of the above Safety precautions in home/vehicle No Smoke, vape, chews tobacco No Difficulty hearing No Difficulty seeing No Current Providers Specialists: I have reviewed specialist-related care of the patient in the medical record. Medical/Family history review Reviewed and updated problem list, medical/surgical/family/social history, medications, and allergies. Opioid use review Opioid Medications (last 90 days) No data to display Anxiety/Depression screening PHQ-2 Score: 0 (Lower risk for depression) Recommendation: no further intervention at this time Cognitive screening Mini Cog Score: 5 Cognitive screening reviewed and No further action needed (score 3-5). Functional Observation Was the patient's Timed Up & Go test unsteady or >= 12 seconds? No Advance Care Planning Surrogate decision maker and/or advance care plan documented Measurements BP 126/70 Pulse 84 Temp 36.7 C (98 F) (Left Tympanic) Resp 20 Wt 115.7 kg (255 lb) BMI 38.49 kg/m Vision Screening: Follows with optometry/ophthalmology Assessment/Plan Medicare annual wellness visit, subsequent (Z00.00) - Counseled on healthy diet and regular exercise - Fall avoidance information provided - Personalized prevention plan provided - Discussed need for and benefit of weight loss. BMI 38.49 kg/(m^2) Pete Morejon DO * Pete Morejon DO - 07/30/2024 12:31 PM EST CC: Mary Reyes is a 73 year old female who presents to the office for follow up HPI: Left 4th finger trigger finger, symptoms are mild. Doesn't want to pursue surgery at this time. No injuries. No severe pain Arthritis, overall has been stable, no recent falls. Does admit to shortness of breath, she was diagnosed and treated for pneumonia in Apr and had recent CXR showing concerns for atelectasis, no chest pressure or pain. Has a history of LVH. Last echo was a few years ago. No syncope but did have some LH feeling HPL, diet controlled Cholesterol, Total Date Value Ref Range Status 07/23/2024 161 <200 mg/dL Final Comment: <200 mg/dL, Desirable 200-239 mg/dL, Borderline high >239 mg/dL, High HDL Cholesterol Date Value Ref Range Status 07/23/2024 42 >39 mg/dL Final Comment: 40-59 mg/dL, Acceptable >59 mg/dL, High: Negative risk factor for coronary heart disease <40 mg/dL, Low: Positive risk factor for coronary heart disease LDL Cholesterol Date Value Ref Range Status 07/23/2024 100 (H) <100 mg/dL Final Comment: <100 mg/dL, Optimal 100-129 mg/dL, Near optimal/above optimal 130-159 mg/dL, Borderline high 160-189 mg/dL, High >189 mg/dL, Very high Secondary prevention optimal LDL Cholesterol levels are recommended to be < 70 mg/dL Triglyceride Date Value Ref Range Status 07/23/2024 93 <150 mg/dL Final Comment: <150 mg/dL, Normal 150-199 mg/dL, Borderline high 200-499 mg/dL, High >499 mg/dL, Very high IFG, diet controlled. Not on any medications Hemoglobin A1C Date Value Ref Range Status 07/23/2024 5.6 4.3 - 5.6 % Final Comment: [place] [employer] guidelines indicate that patients with HgbA1c in the range 5.7-6.4% are at increased risk for development of diabetes, and intervention by lifestyle modification may be beneficial. HgbA1c greater or equal to 6.5% is considered diagnostic of diabetes. 11/24/2023 5.8 (H) 4.3 - 5.6 % Final Comment: [place] [employer] guidelines indicate that patients with HgbA1c in the range 5.7-6.4% are at increased risk for development of diabetes, and intervention by lifestyle modification may be beneficial. HgbA1c greater or equal to 6.5% is considered diagnostic of diabetes. 05/23/2023 5.5 4.3 - 5.6 % Final Comment: [place] [employer] guidelines indicate that patients with HgbA1c in the range 5.7-6.4% are at increased risk for development of diabetes, and intervention by lifestyle modification may be beneficial. HgbA1c greater or equal to 6.5% is considered diagnostic of diabetes. 05/09/2022 5.8 (H) 4.3 - 5.6 % Final Comment: [place] [employer] guidelines indicate that patients with HgbA1c in the range 5.7-6.4% are at increased risk for development of diabetes, and intervention by lifestyle modification may be beneficial. HgbA1c greater or equal to 6.5% is considered diagnostic of diabetes. 04/19/2021 5.9 (H) 4.3 - 5.6 % Final Comment: [place] [employer] guidelines indicate that patients with HgbA1c in the range 5.7-6.4% are at increased risk for development of diabetes, and intervention by lifestyle modification may be beneficial. HgbA1c greater or equal to 6.5% is considered diagnostic of diabetes. PAST MEDICAL HISTORY Diagnosis Date Arthritis left knee, back Chronic kidney disease, stage 3a (HCC) 05/26/2023 Complication of anesthesia N/V DDD (degenerative disc disease), lumbar Diulus, Cole Diverticulosis of colon (without mention of hemorrhage) 05/27 Diverticulosis Head injury 1971 left hand numbness, decrease coordination on right (dominant) IFG (impaired fasting glucose) 03/2017 a1c 5.8% Insomnia, unspecified improved Mild atherosclerosis of carotid artery 2016 internal, 0-19% Papanicolaou smear of cervix with atypical squamous cells of undetermined significance (ASC-US) 2009 ASCUS HPV negative, Dr Whiteside Snoring Tremor left hand Unspecified essential hypertension borderline PAST SURGICAL HISTORY Procedure Laterality Date ARTHROSCOPY KNEE DIAGNOSTIC W/WO SYNOVIAL BX SPX 03/25/2003 Arthroscopy, knee LEFT ARTHRP ACETBLR/PROX FEM PROSTC AGRFT/ALGRFT Left 03/27/[address] Mederos, [facility] ARTHRP KNE CONDYLE&PLATU MEDIAL&LAT COMPARTMENTS 10/04/10 Knee replacement, total Knee ARTHRP KNE CONDYLE&PLATU MEDIAL&LAT COMPARTMENTS Right 10/01/2018 Dr. Mata, [facility] COLONOSCOPY FLX DX W/COLLJ SPEC WHEN PFRMD 06/02/04 Repeat in COLONOSCOPY FLX DX W/COLLJ SPEC WHEN PFRMD 06/23/14 no polyps EYE SURGERY HX 06/27/14 left laeral rectus recession-strabismus F SI JOINT INJECTION 02/02/12 LIG/TRNSXJ FLP TUBE ABDL/VAG APPR UNI/BI 1982 Tubal ligation NEUROPLASTY &/TRANSPOS MEDIAN NRV CARPAL TUNNE 09/2000 Carpal tunnel decomp LEFT PAST SURGICAL HISTORY OF 1988 LEFT EYE, strabismus repair after injury PAST SURGICAL HISTORY OF 1970 skull fracture (ice skating) Current Outpatient Medications Medication Sig cholecalciferol, vitamin D3, (D3-2000 ORAL) Take by mouth. cyanocobalamin (VITAMIN B-12) 1,000 mcg tab Take 1,000 mcg by mouth once daily. triamcinolone acetonide (KENALOG) 0.5 % cream Apply to affected area three times a day. vit A,C,S-Toix-Sdahaf (PRESERVISION AREDS) 2,148 mcg-113 mg-45 mg-17.4mg tab Take 1 tablet by mouthdaily with breakfast. metoprolol succinate ER (TOPROL XL) 50 mg 24 hr tablet Take 1 tablet by mouth once daily. metroNIDAZOLE (METROGEL) 0.75 % Topical Gel Apply to affected area twice daily. acetaminophen (TYLENOL EXTRA STRENGTH) 500 mg tablet Take 1,000 mg by mouth every 8 hours as needed. aspirin, enteric coated (ASPIRIN, ENTERIC COATED) 81 mg EC tablet Take 81 mg by mouth once daily. No current facility-administered medications for this visit. ALLERGIES Allergen Reactions Vicodin [Hydrocodon* Rash Vioxx [Rofecoxib] GI Upset Social History Tobacco Use Smoking status: Never Smokeless tobacco: Never Vaping Use Vaping status: Never Used Substance Use Topics Alcohol use: Yes Comment: 6 per year Drug use: No ROS: See HPI PE: BP 126/70 Pulse 84 Temp (Src) 98 (Left Tympanic) Resp 20 Wt 255 lb (115.7kg) Gen: A&OX3, NAD, non-toxic appearing HEENT: PERRLA, EOMs intact b/l, nares without drainage, pharynx without erythema, exudate, lesions,or drainage. Uvula midline. Neck: No LAD, no thyromegaly, no meningismus. CV: RRR, no murmur Lungs: CTA b/l, no wheezing Skin: No rashes, lesions, or wounds on exposed skin. Trigger finger left 4th finger on hand without sign of other concerns No edema Abd: soft, NT, ND, normal bowel sounds, obese Normal pulses ASSESSMENT/PLAN: 1. Medicare annual wellness visit, subsequent - ICD9: V70.0, ICD10: Z00.00 (primary diagnosis) - Counseled on healthy diet and regular exercise - Discussed need and benefit for weight loss. BMI 38.49 kg/(m^2) 2. SOB (shortness of breath) - ICD9: 786.05, ICD10: R06.02 CT chest as ordered ECHO as ordered Did have pneumonia in Apr. No recent URI otherwise If symptoms are not determined as a cause with these tests,. Then need for PFTs and stress nuclear testing. - CT CHEST WO IVCON - ECHO - PERFLUTREN LIPID MICROSPHERES 1.1 MG/ML INJECTION IN NS 10 ML - SODIUM CHLORIDE 0.9 % (FLUSH) INJECTION SYRINGE 3. Tremor - ICD9: 781.0, ICD10: R25.1 Referral for evaluation - CONSULT TO NEUROLOGY 4. Hypertension, essential - ICD9: 401.9, ICD10: I10 - Controlled - Continue current medications - Recommend home blood pressure monitoring, to bring results to next visit - Encouraged sodium restriction, DASH or Mediterranean diet - Recommend regular aerobic exercise - Discussed need for and benefit of weight loss. BMI 38.49 kg/(m^2) - ECHO - PERFLUTREN LIPID MICROSPHERES 1.1 MG/ML INJECTION IN NS 10 ML - SODIUM CHLORIDE 0.9 % (FLUSH) INJECTION SYRINGE 5. LVH (left ventricular hypertrophy) - ICD9: 429.3, ICD10: I51.7 CT chest as ordered ECHO as ordered Did have pneumonia in Oct. No recent URI otherwise If symptoms are not determined as a cause with these tests,. Then need for PFTs and stress nuclear testing. - ECHO - PERFLUTREN LIPID MICROSPHERES 1.1 MG/ML INJECTION IN NS 10 ML - SODIUM CHLORIDE 0.9 % (FLUSH) INJECTION SYRINGE 6. Chronic kidney disease, stage 3a (HCC) - ICD9: 585.3, ICD10: N18.31 - eGFR: 69 Stable - Counseled on avoiding NSAIDs, adequate hydration - Counseled on low sodium diet 7. Dyslipidemia - ICD9: 272.4, ICD10: E78.5 - Controlled - Continue current medications - Counseled on healthy diet and regular exercise - ECHO - PERFLUTREN LIPID MICROSPHERES 1.1 MG/ML INJECTION IN NS 10 ML - SODIUM CHLORIDE 0.9 % (FLUSH) INJECTION SYRINGE 8. Hyperlipidemia, mixed - ICD9: 272.2, ICD10: E78.2 - Controlled - Continue current medications - Counseled on healthy diet and regular exercise 9. Vitamin D deficiency - ICD9: 268.9, ICD10: E55.9 Continue supplement 10. Vitamin B12 deficiency - ICD9: 266.2, ICD10: E53.8 Continue supplement 11. IFG (impaired fasting glucose) - ICD9: 790.21, ICD10: R73.01 Diet controlled 12. DDD (degenerative disc disease), cervical - ICD9: 722.4, ICD10: M50.30 stable Pete Morejon DO Return if no improvement. Follow up with Pete Morejon DO. To ER if develops chest pain, shortness of breath. Discussed risks, benefits, alternatives, and potential side effects of medications. Patient/Guardian expressed understanding and agreed with the plan. See patient instructions. Pete Morejon DO [address] [place] [address] documented in this encounterC[facility]01-07-2025 Instructions* Patient Instructions* Pete Morejon DO - 07/30/2024 12:44 PM EST Trigger finger on left hand Epsom salt soak with 1/4-1/2 cup of epsom salts in warm/hot water and soak for 15-20 minutes once aday Then apply Voltaren 1% cream AM and PM on joint area Will do CT chest and ECHO for the shortness of breath to investigate Dr. Gil Neurologist documented in this encounterC[facility]01-07-2025 NoteHNO ID: [id number] Author: PETE MOREJON DO Service: ? Author Type: Physician Type: Progress Notes Filed: 07/30/2024 16:16 Note Text: CC: Mary Reyes is a 73 year old female who presents to the office for follow up HPI: Left 4th finger trigger finger, symptoms are mild. Doesn't want to pursue surgery at this time. No injuries. No severe pain Arthritis, overall has been stable, no recent falls. Does admit to shortness of breath, she was diagnosed and treated for pneumonia in Apr and had recent CXR showing concerns for atelectasis, no chest pressure or pain. Has a history of LVH. Last echo was a few years ago. No syncope but did have some LH feeling HPL, diet controlled Cholesterol, Total Date Value Ref Range Status 07/23/2024 161 <200 mg/dL Final Comment: <200 mg/dL, Desirable 200-239 mg/dL, Borderline high >239 mg/dL, High HDL Cholesterol Date Value Ref Range Status 07/23/2024 42 >39 mg/dL Final Comment: 40-59 mg/dL, Acceptable >59 mg/dL, High: Negative risk factor for coronary heart disease <40 mg/dL, Low: Positive risk factor for coronary heart disease LDL Cholesterol Date Value Ref Range Status 07/23/2024 100 (H) <100 mg/dL Final Comment: <100 mg/dL, Optimal 100-129 mg/dL, Near optimal/above optimal 130-159 mg/dL, Borderline high 160-189 mg/dL, High >189 mg/dL, Very high Secondary prevention optimal LDL Cholesterol levels are recommended to be < 70 mg/dL Triglyceride Date Value Ref Range Status 07/23/2024 93 <150 mg/dL Final Comment: <150 mg/dL, Normal 150-199 mg/dL, Borderline high 200-499 mg/dL, High >499 mg/dL, Very high IFG, diet controlled. Not on any medications Hemoglobin A1C Date Value Ref Range Status 07/23/2024 5.6 4.3 - 5.6 % Final Comment: [place] [employer] guidelines indicate that patients with HgbA1c in the range 5.7-6.4% are at increased risk for development of diabetes, and intervention by lifestyle modification may be beneficial. HgbA1c greater or equal to 6.5% is considered diagnostic of diabetes. 11/24/2023 5.8 (H) 4.3 - 5.6 % Final Comment: [place] [employer] guidelines indicate that patients with HgbA1c in the range 5.7-6.4% are at increased risk for development of diabetes, and intervention by lifestyle modification may be beneficial. HgbA1c greater or equal to 6.5% is considered diagnostic of diabetes. 05/23/2023 5.5 4.3 - 5.6 % Final Comment: [place] [employer] guidelines indicate that patients with HgbA1c in the range 5.7-6.4% are at increased risk for development of diabetes, and intervention by lifestyle modification may be beneficial. HgbA1c greater or equal to 6.5% is considered diagnostic of diabetes. 05/09/2022 5.8 (H) 4.3 - 5.6 % Final Comment: [place] [employer] guidelines indicate that patients with HgbA1c in the range 5.7-6.4% are at increased risk for development of diabetes, and intervention by lifestyle modification may be beneficial. HgbA1c greater or equal to 6.5% is considered diagnostic of diabetes. 04/19/2021 5.9 (H) 4.3 - 5.6 % Final Comment: [place] [employer] guidelines indicate that patients with HgbA1c in the range 5.7-6.4% are at increased risk for development of diabetes, and intervention by lifestyle modification may be beneficial. HgbA1c greater or equal to 6.5% is considered diagnostic of diabetes. PAST MEDICAL HISTORY Diagnosis Date Arthritis left knee, back Chronic kidney disease, stage 3a (HCC) 05/26/2023 Complication of anesthesia N/V DDD (degenerative disc disease), lumbar Diulus, Cole Diverticulosis of colon (without mention of hemorrhage) 05/27 Diverticulosis Head injury 1971 left hand numbness, decrease coordination on right (dominant) IFG (impaired fasting glucose) 03/2017 a1c 5.8% Insomnia, unspecified improved Mild atherosclerosis of carotid artery 2016 internal, 0-19% Papanicolaou smear of cervix with atypical squamous cells of undetermined significance (ASC-US) 2009 ASCUS HPV negative, Dr Whiteside Snoring Tremor left hand Unspecified essential hypertension borderline PAST SURGICAL HISTORY Procedure Laterality Date ARTHROSCOPY KNEE DIAGNOSTIC W/WO SYNOVIAL BX SPX 03/25/2003 Arthroscopy, knee LEFT ARTHRP ACETBLR/PROX FEM PROSTC AGRFT/ALGRFT Left 03/27/[address] [place], [facility] ARTHRP KNE CONDYLEANDPLATU MEDIALANDLAT COMPARTMENTS 10/04/10 Knee replacement, total Knee ARTHRP KNE CONDYLEANDPLATU MEDIALANDLAT COMPARTMENTS Right 10/01/2018 Dr. Mata, [facility] COLONOSCOPY FLX DX W/COLLJ SPEC WHEN PFRMD 06/02/04 Repeat in COLONOSCOPY FLX DX W/COLLJ SPEC WHEN PFRMD 06/23/14 no polyps EYE SURGERY HX 06/27/14 left laeral rectus recession-strabismus F SI JOINT INJECTION 02/02/12 LIG/TRNSXJ FLP TUBE ABDL/VAG APPR UNI/BI 1982 Tubal ligation NEUROPLASTY AND/TRANSPOS MEDIAN NRV CARPAL TUNNE 09/2000 Carpal tunnel decomp LEFT PAST SURGICAL (more content not included)...[facility]12-27-2024 History of Present illness Narrative* Pratima Mayberry, RT(R) - 07/19/2024 11:00 AM EST Radiology Service Progress Note PATIENT NAME: Mary Reyes DATE OF SERVICE: July 19, 2024 TIME: 12:18 PM PATIENT IDENTITY VERIFICATION COMPLETED USING TWO (2) IDENTIFIERS: Name and Date of confirmedby patient verbally. FALL SCREENING: Has the patient had 2 falls in the last year or 1 fall with injury or currently using an Ambulatory Assistive Device (Walker, Cane, Wheelchair, Crutches, etc.)? No PATIENT GENDER DATA: Female. status: : No status: NO. PATIENT RELEVANT IMPLANT DATA REVIEWED: Not Applicable PATIENT PRESENTS WITH AN IMPLANTABLE OR ATTACHED DEPENDENCY DIRECTOR: No RADIOLOGY DEPARTMENT: General X-ray: Exam(s) Completed: Chest X-Ray PERIPHERAL IV DATA: Not applicable SIGNED BY: RT Miya(R) July 19, 2024 12:18 PM documented in this encounterCleveland Clinic [facility]12-27-2024 NoteHNO ID: [id number] Author: PRATIMA MAYBERRY RT(R) Service: ? Author Type: Technologist Type: Progress Notes Filed: 07/19/2024 12:19 Note Text: Radiology Service Progress Note PATIENT NAME: Mary Reyes DATE OF SERVICE: July 19, 2024 TIME: 12:18 PM PATIENT IDENTITY VERIFICATION COMPLETED USING TWO (2) IDENTIFIERS: Name and Date of confirmed by patient verbally. FALL SCREENING: Has the patient had 2 falls in the last year or 1 fall with injury or currently using an Ambulatory Assistive Device (Walker, Cane, Wheelchair, Crutches, etc.)? No PATIENT GENDER DATA: Female. status: : No status: NO. PATIENT RELEVANT IMPLANT DATA REVIEWED: Not Applicable PATIENT PRESENTS WITH AN IMPLANTABLE OR ATTACHED DEPENDENCY DIRECTOR: No RADIOLOGY DEPARTMENT: General X-ray: Exam(s) Completed: Chest X-Ray PERIPHERAL IV DATA: Not applicable SIGNED BY: RT Miya(R) July 19, 2024 12:18 [facility] Telephone encounter Note* Telephone Encounter - Kim Loza MA - 07/15/2024 11:13 AM EST Notified via [email or web address]. Kim Loza MA [facility]12-23-[facility]24 Miscellaneous Notes* Telephone Encounter - Kim Loza MA - 07/15/2024 11:13 AM EST Notified via [email or web address]. Kim Loza MA * Telephone Encounter - Nestor Crowe PA-C - 07/15/2024 10:31 AM EST I have reordered a CXR. Nestor Crowe PA-C * Telephone Encounter - Kim Loza MA - 07/15/2024 9:45 AM EST See [email or web address] message. Nestor Crowe ordered a chest x-ray on May 07 and again May 28. I was going to schedule and noticed there were two orders so I tried to cancel one. However, it cancelled both. Could Ihave just one ordered and I will get it scheduled. Thank you. Alma documented in this encounterCleveland Clinic [facility]12-23-2024 Telephone encounter Note * Telephone Encounter - Nestor Crowe PA-C - 07/15/2024 10:31 AM EST I have reordered a CXR. Nestor Crowe PA-C [facility]12-23-[facility]24 Telephone encounter Note* Telephone Encounter - Kim Loza MA - 07/15/2024 9:45 AM EST See [email or web address] message. Nestor Crowe ordered a chest x-ray on May 07 and again May 28. I was going to schedule and noticed there were two orders so I tried to cancel one. However, it cancelled both. Could Ihave just one ordered and I will get it scheduled. Thank you. Alma [facility]12-23-2024 Telephone encounter Note* Telephone Encounter - Kim Loza MA - 07/15/2024 9:44 AM EST See TE July 15, 2024 [facility]12-[facility] Miscellaneous Notes* Telephone Encounter - Kim Loza MA - 07/15/2024 9:44 AM EST See TE July 15, 2024 documented in this encounterCleveland Clinic [facility]12-20-2024 Telephone encounter Note * Telephone Encounter - Luna Bruce APRN.WOLF [employer]UNTER - 07/12/2024 12:22 PM EST Labs are ordered. Make sure she is aware to get these drawn AND the ones ordered in April. Thank you, Luna Bruce APRN.WOLF HUNTER [facility]12-20-2024 Miscellaneous Notes* Telephone Encounter - Luna Bruce APRN.JOYCE - 07/12/2024 12:22 PM EST Labs are ordered. Make sure she is aware to get these drawn AND the ones ordered in April. Thank you, Luna Bruce APRN.WOLF HUNTER * Telephone Encounter - Malissa Perez MA - 07/12/2024 11:04 AM EST I pended lab orders to review. Please advise and sign. Malissa Perez MA documented in this encounterCleveland Clinic [facility]12-20-2024 Telephone encounter Note * Telephone Encounter - Malissa Perez MA - 07/12/2024 11:04 AM EST I pended lab orders to review. Please advise and sign. Malissa Perez MA [facility]12-11-2024 Instructions* Patient Instructions* Savanah Soria MD - 07/03/2024 3:27 PM EST COLONOSCOPY BOWEL PREPARATION INSTRUCTIONS MiraLAX Your doctor has scheduled you for a colonoscopy. To have a successful colonoscopy, you must have a clean colon, that is empty. A clean colon allows your doctor to see the entire colon & diagnose issues like polyps or cancer. For doctors, a clean colon is like driving on a john day; a dirty colon like driving in a storm. It is very important that you follow these instructions exactly, or your colonoscopy may not be as effective, could be canceled, and you may need to do the bowel prep and colonoscopy again. TRANSPORTATION REQUIREMENTS You are receiving IV sedation. For your safety, a responsible adult escort must accompany you to and from your procedure: Your adult escort MUST be present with you at check-in for your colonoscopy. Your adult escort MUST remain in the endoscopy area until you are discharged. Your adult escort MUST transport you home once you are discharged. You are NOT allowed to operate any form of transportation (i.e. drive a car, bicycle, etc) or leavethe [facility]oscopy Center ALONE. It is not safe to do so. If you cannot meet these requirements, your procedure will be canceled. MEDICATION REQUIREMENTS For your safety, certain medications will need to be stopped or adjusted before you can have your procedure: BLOOD THINNERS: If you take blood thinners, such as Coumadin (warfarin), Plavix (clopidogrel), Ticlid (ticlopidine hydrochloride), Agrylin (anagrelide), Xarelto (Rivaroxaban), Pradaxa (Dabigatran), Eliquis (Apixaban), or Effient (Prasugrel), contact the physician who is prescribing these medications at least 2 weeks prior to your procedure to discuss any necessary adjustments. DIABETES: If you take medications for diabetes, your dosage may need to be adjusted. If you are being treated for diabetes with insulin, diabetic pills, or other injectable medicationsdo not take your REGULAR dose after midnight on the day of your procedure. If you are taking any other types of insulin such as Lantus, Humalog, NPH (long- acting insulin), or70/30 insulin, take half your normal dose the day before your procedure. DIABETES/WEIGHT MANAGEMENT: If you take medications for weight-loss, your dosage may need to be adjusted Contact the doctor who prescribes this medication for further instructions. If you take medications for weight-loss like semaglutide (Ozempic, Wegovy, Rybelsus), dulaglutide (Trulicity), liraglutide (Victoza, Saxenda), exenatide (Byetta, Bydureon), or lixisenatide (Adylyxin), stop your medication 1 week prior to your procedure. If you take medications like canagliflozin (Invokana), dapagliflozin (Farxiga, Forxiga), empagliflozin (Jardiance), stop your medication 3 days prior to your procedure. If you take ertugliflozin (Steglatro) stop your medication 4 days prior to your procedure. IRON: If you take iron pills, STOP them 1 week BEFORE your procedure, may resume after. OTHER MEDS: May take all other medications (including aspirin, antibiotics, water pills / diureticslike Lasix or Metolozone, blood pressure meds, etc.) at their usual scheduled time with water. DIET REQUIREMENTS The day before your colonoscopy, you may have a clear liquid diet (see below). The day of your colonoscopy, you may continue a clear liquid diet until 3 hours before your colonoscopy. Within 3 hours of your colonoscopy, take only any medications (as above) with a sip of water. Clear Liquid Diet Broth (chicken, beef or vegetable broth or bullion. Just the broth, no solids). Water Coffee or Tea (NO milk or creamer), but sugar and sugar substitutes are allowed. Clear liquids including clear, yellow, green, blue (NO red, NO orange, NO purple) Sodas / soft drinks; Gatorade or other sports drinks Fruit juice (strained; no-pulp); Kane-Aid or flavored drinks Plain Jell-O or other gelatins Popsicles or hard candy Bowel prep can work differently from person to person. Some people's bowels move slowly and they may need different instructions. Please see your doctor in office or virtually for personalized bowel prep instructions if you have: BOWEL PREPARATION (MIRALAX/GATORADE) Split Dosing Bowel Prep: This means drinking your bowel prep in two doses. Split dosing helps cleanyour colon better and makes it less likely that your procedure will be canceled. You will need to purchase the following (no prescriptions are needed): 64 ounces Gatorade, Propel, Crystal Lite or other noncarbonated clear liquid sports drink (NOT red,orange, or purple). Diabetic patients buy sugar-free, e.g. Gatorade G2 4 Dulcolax laxative tablets containing 5mg bisacodyl each (do not buy the stool softener) 8.3 oz MiraLAX (238g) powder or generic polyethylene glycol 3350 (find in laxative aisle) The day before your colonoscopy mix 64 oz of the sports drink with 8.3 oz MiraLAX (238 g) in a pitcher. Stir or shake until MiraLAX completely dissolved. Chill if desired. On the evening before your colonoscopy: 5 PM take 4 Dulcolax laxative tablets with water by mouth. 6 PM drink the first half of the Gatorade/MiraLAX solution Drink one 8-ounce glass every 15 minutes. Six hours before your colonoscopy, drink the second half of the solution. Drink one 8-ounce glass every 15 minutes. You may continue a clear liquid diet until 3 hours before your colonoscopy. Bowel prep can work differently from person to person. Some people's bowels move slowly and they may need different instructions. Please see your doctor in office or virtually for personalized bowel prep instructions if you have: Medical condition that needs special accommodations Had a poor bowel prep results or failed bowel prep attempts in the past. Had difficulty with anesthesia during the procedure. FREQUENTLY ASKED QUESTIONS Q: What if I suffer from constipation? A: Recommend taking extra laxatives to resolve your constipation days prior to entering the bowel prep day. Q: What if have had prior poor preps results in past? A: Contact your physician as you will likely need additional bowel prep instructions. Q: What if I have motility issues like Parkinson's, MS (multiple sclerosis), wheelchair dependent, etc.? or on medications that slow colonic transit times (narcotics, gabapentin, anticholinergic medications etc.) A: Contact your physician as you will likely need extra time and additional laxatives to complete your bowel prep. Q: What if I cannot drink large volume of liquid? A: Start your prep 2-3 hours earlier to allow yourself more time to complete the entire prep. Q: What if I had bariatric surgery? Do I still have to complete the entire prep? A: Yes, gastric bypass surgery involves the stomach & small bowel. You may need to drink smaller amounts, slower (may need more time to complete your bowel prep). Gastric bypass does not alter the length of your colon so you will need to complete the entire bowel prep, it may just take longer time to complete it. Q: What if I am on dialysis? A: Please consult your collateral analyst prior to scheduling to get instructions pertinent to you. In general, dialysis patients take the QFPayytely bowel prep and have the procedure same day of their dialysis (colonoscopy in AM, dialysis in PM). Q: How do I know if something is considered as clear liquid diet? A: If you can pour it in a glass and you can see through it, it is considered clear liquid Q: Can I eat nuts, seeds, beans, popcorn, dried fruits, vegetables & fruits that have skin peel? A: No, you will need to not eat these items starting 3 days prior to procedure. Q: Can I take Uber/Lyft/taxi/bus home? A: An adult MUST be present with you at check-in for your colonoscopy and remain in the endoscopy area until you are discharged. You can take Uber home only if this adult escort is with you at check in, remain in the endoscopy area until you are discharged, and takes the Uber with you to home. Q: Can I sleep it off here and drive myself home? A: No, you must have an adult with you at time of procedure check in, remain in the endoscopy center during your procedure, and drive you home. You cannot drive a vehicle after your procedure the rest of the day. Q: What if I can't finish my bowel prep? A: If you cannot complete your entire bowel prep, there is high likelihood that your colonoscopy will need to be rescheduled due to inadequate prep quality. documented in this encounterC[facility]12[facility] NoteHNO ID: [id number] Author: SAVANAH SORIA MD Service: ? Author Type: Physician Type: Progress Notes Filed: 07/03/2024 15:27 Note Text: [employer] offered: Patient declines. Mary is a 73 year old who presents for an annual gynecologic exam without complaints. Postmenopausal: Yes HRT use: No. 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 LMP: Postmenopausal Age at Menarche: Age at First : Age at Menopause: [facility] [employer] History Comments: Sexual Activity: Yes; Male Contraception: No contraception data on record PAST MEDICAL HISTORY Diagnosis Date Arthritis left knee, back Chronic kidney disease, stage 3a (HCC) 05/26/2023 Complication of anesthesia N/V DDD (degenerative disc disease), lumbar Diulus, Cole Diverticulosis of colon (without mention of hemorrhage) 05/27 Diverticulosis Head injury 1971 left hand numbness, decrease coordination on right (dominant) IFG (impaired fasting glucose) 03/2017 a1c 5.8% Insomnia, unspecified improved Mild atherosclerosis of carotid artery 2016 internal, 0-19% Papanicolaou smear of cervix with atypical squamous cells of undetermined significance (ASC-US) 2009 ASCUS HPV negative, Dr Whiteside Snoring Tremor left hand Unspecified essential hypertension borderline PAST SURGICAL HISTORY Procedure Laterality Date ARTHROSCOPY KNEE DIAGNOSTIC W/WO SYNOVIAL BX SPX 03/25/2003 Arthroscopy, knee LEFT ARTHRP ACETBLR/PROX FEM PROSTC AGRFT/ALGRFT Left 03/27/[address] Mederos, [facility] ARTHRP KNE CONDYLEANDPLATU MEDIALANDLAT COMPARTMENTS 10/04/10 Knee replacement, total Knee ARTHRP KNE CONDYLEANDPLATU MEDIALANDLAT COMPARTMENTS Right 10/01/2018 Dr. Mata, [facility] COLONOSCOPY FLX DX W/COLLJ SPEC WHEN PFRMD 06/02/04 Repeat in COLONOSCOPY FLX DX W/COLLJ SPEC WHEN PFRMD 06/23/14 no polyps EYE SURGERY HX 06/27/14 left laeral rectus recession-strabismus F SI JOINT INJECTION 02/02/12 LIG/TRNSXJ FLP TUBE ABDL/VAG APPR UNI/BI 1982 Tubal ligation NEUROPLASTY AND/TRANSPOS MEDIAN NRV CARPAL TUNNE 09/2000 Carpal tunnel decomp LEFT PAST SURGICAL HISTORY OF 1988 LEFT EYE, strabismus repair after injury PAST SURGICAL HISTORY OF 1970 skull fracture (ice skating) FAMILY HISTORY Problem Relation Age of Onset Heart Mother atrial fibrilation/diverticulitis/osteoporosis Stroke Father Breast Cancer Maternal Grandmother Stroke Maternal Grandmother Stroke Paternal Grandfather Heart Brother SOCIAL HISTORY Social History Tobacco Use Smoking status: Never Smokeless tobacco: Never Vaping Use Vaping status: Never Used Substance Use Topics Alcohol use: Yes Comment: 6 per year Drug use: No REVIEW OF SYSTEMS Abdomen: No abdominal pain, nausea, vomiting, diarrhea, or constipation. No bloating, early satiety, indigestion, or increased flatulence. Bladder: No dysuria, gross hematuria, urinary frequency, urinary urgency, or incontinence Breast: No breast lumps, nipple d/c, overlying skin changes, redness or skin retraction Allergies and current medication updated:Yes SENSITIVE EXAM: The sensitive examination was discussed with the Patient or Patient's Authorized Executive Relations Specialist. As applicable, any other physician, advance practice provider, medical student, or other health professional student that will be observing or involved in the sensitive examination for educational or training purposes was discussed with the Patient or Authorized Executive Relations Specialist. The Patient or Authorized Executive Relations Specialist has agreed to proceed with the sensitive examination. (Sensitive examination includes inspection and/or palpation of the breasts, pelvis, prostate and anorectal regions). EXAM: BP 130/86 Ht 5' 8.25 (1.73m) Wt 255 lb (115.7kg) BMI 38.47 kg/(m2). GENERAL: pleasant, female in no apparent distress HEENT: Normocephalic, atraumatic, mucus membranes moist, and no lesions NECK: Supple, full range of motion, no adenopathy, and thyroid normal DERMATOLOGY: Normal, without lesions, non-icteric, and non-hirsute BREAST: soft, non-tender, symmetric, no dominant mass, normal nipple-areolar complex, no lymphadenopathy, and no nipple discharge ABDOMEN: soft, non-tender, and no masses PELVIC: external genitalia normal, normal Bartholin's glands, urethra, [place]'s glands, no vulvar lesions, good vaginal support, physiologic discharge present, normal appearing perineal body and perianal region, cervix appears flush with vagina BIMANUAL: uterus feels normal size, shape and consistency, no adnexal masses, and non-tender- difficult exam due to habitus RECTOVAGINAL: deferred. (more content not included)...[facility] 07-03-2024 History of Present illness Narrative* Savanah Soria MD - 07/03/2024 2:59 PM EST [employer] offered: Patient declines. Mary is a 73 year old who presents for an annual gynecologic exam without complaints. Postmenopausal: Yes HRT use: No. 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 LMP: Postmenopausal Age at Menarche: Age at First : Age at Menopause: [facility] [employer] History Comments: Sexual Activity: Yes; Male Contraception: No contraception data on record PAST MEDICAL HISTORY Diagnosis Date Arthritis left knee, back Chronic kidney disease, stage 3a (HCC) 05/26/2023 Complication of anesthesia N/V DDD (degenerative disc disease), lumbar Diulus, Cole Diverticulosis of colon (without mention of hemorrhage) 05/27 Diverticulosis Head injury 1971 left hand numbness, decrease coordination on right (dominant) IFG (impaired fasting glucose) 03/2017 a1c 5.8% Insomnia, unspecified improved Mild atherosclerosis of carotid artery 2016 internal, 0-19% Papanicolaou smear of cervix with atypical squamous cells of undetermined significance (ASC-US) 2009 ASCUS HPV negative, Dr Whiteside Snoring Tremor left hand Unspecified essential hypertension borderline PAST SURGICAL HISTORY Procedure Laterality Date ARTHROSCOPY KNEE DIAGNOSTIC W/WO SYNOVIAL BX SPX 03/25/2003 Arthroscopy, knee LEFT ARTHRP ACETBLR/PROX FEM PROSTC AGRFT/ALGRFT Left 03/27/[address] [place], [facility] ARTHRP KNE CONDYLE&PLATU MEDIAL&LAT COMPARTMENTS 10/04/10 Knee replacement, total Knee ARTHRP KNE CONDYLE&PLATU MEDIAL&LAT COMPARTMENTS Right 10/01/2018 Dr. Mata, [facility] COLONOSCOPY FLX DX W/COLLJ SPEC WHEN PFRMD 06/02/04 Repeat in COLONOSCOPY FLX DX W/COLLJ SPEC WHEN PFRMD 06/23/14 no polyps EYE SURGERY HX 06/27/14 left laeral rectus recession-strabismus F SI JOINT INJECTION 02/02/12 LIG/TRNSXJ FLP TUBE ABDL/VAG APPR UNI/BI 1982 Tubal ligation NEUROPLASTY &/TRANSPOS MEDIAN NRV CARPAL TUNNE 09/2000 Carpal tunnel decomp LEFT PAST SURGICAL HISTORY OF 1988 LEFT EYE, strabismus repair after injury PAST SURGICAL HISTORY OF 1970 skull fracture (ice skating) FAMILY HISTORY Problem Relation Age of Onset Heart Mother atrial fibrilation/diverticulitis/osteoporosis Stroke Father Breast Cancer Maternal Grandmother Stroke Maternal Grandmother Stroke Paternal Grandfather Heart Brother SOCIAL HISTORY Social History Tobacco Use Smoking status: Never Smokeless tobacco: Never Vaping Use Vaping status: Never Used Substance Use Topics Alcohol use: Yes Comment: 6 per year Drug use: No REVIEW OF SYSTEMS Abdomen: No abdominal pain, nausea, vomiting, diarrhea, or constipation. No bloating, early satiety, indigestion, or increased flatulence. Bladder: No dysuria, gross hematuria, urinary frequency, urinary urgency, or incontinence Breast: No breast lumps, nipple d/c, overlying skin changes, redness or skin retraction Allergies and current medication updated:Yes SENSITIVE EXAM: The sensitive examination was discussed with the Patient or Patient's Authorized Executive Relations Specialist. As applicable, any other physician, advance practice provider, medical student, or other health professional student that will be observing or involved in the sensitive examination for educational or training purposes was discussed with the Patient or Authorized Executive Relations Specialist. The Patient or Authorized Executive Relations Specialist has agreed to proceed with the sensitive examination. (Sensitive examination includes inspection and/or palpation of the breasts, pelvis, prostate and anorectal regions). EXAM: BP 130/86 Ht 5' 8.25 (1.73m) Wt 255 lb (115.7kg) BMI 38.47 kg/(m^2). GENERAL: pleasant, female in no apparent distress HEENT: Normocephalic, atraumatic, mucus membranes moist, and no lesions NECK: Supple, full range of motion, no adenopathy, and thyroid normal DERMATOLOGY: Normal, without lesions, non-icteric, and non-hirsute BREAST: soft, non-tender, symmetric, no dominant mass, normal nipple-areolar complex, no lymphadenopathy, and no nipple discharge ABDOMEN: soft, non-tender, and no masses PELVIC: external genitalia normal, normal Bartholin's glands, urethra, [place]'s glands, no vulvar lesions, good vaginal support, physiologic discharge present, normal appearing perineal body and perianal region, cervix appears flush with vagina BIMANUAL: uterus feels normal size, shape and consistency, no adnexal masses, and non-tender- difficult exam due to habitus RECTOVAGINAL: deferred. NEURO: alert and oriented x3,exam grossly non-focal EXTREMITIES: normal ASSESSMENT/PLAN: 1) Health maintenance: Pap/HPV screening no longer needed Mammogram ordered Mammogram up to date Nutrition, exercise and routine health maintenance exams reviewed. Colon cancer screening: colonoscopy ordered 2) Follow up one year or sooner as needed 3) triamcinolone ordered- use one per week Savanah Don MD documented in this encounterC[facility]11-[facility]24 NoteHNO ID: [id number] Author: NESTOR CROWE PA-C Service: ? Author Type: Physician Wheel And Pinion Inspector Type: Progress Notes Filed: 05/28/2024 11:03 Note Text: 05/28/2024 Patient presents with: Follow Up: [facility] ER follow up- SOB, elevated BP and elevated HR, SUBJECTIVE: This is a 73 year old that is here today for [facility] ED visit. She was having some tachycardia, elevated BP and SOB., seen in the office by myself and referred to ED. Changes on ECG noted in office. Cardiac enzymes and work up was negative. With recent travel concern for possible PE-d-dimer WNL for age per ED. CXR did show a left lower lobe infiltreate. Trated with doxycycline. Overall today feels good, no issue/concern. Has not had any more episodes. Previous visit: This is a 73 year old that is here today for Complaint(s) of feeling dizzy/faint and elevated BP this morning. Noted a little bit of SOB. , that has resolved. Denies any SOB coming back to the visit. She took BP at home this morning and BP was 120/101 and 119 pulse and then was jumping high then low. Repat BP was 116/78 with a 78 pulse per patient. [place] a little SOB with walking around. SOB has resolved, but still has a mild ESCOBAR and a little dizziness. Describes as lightheadedness. Denies worst ESCOBAR of life. They returned from [place] last night-drove there and back. Not on any hormone therapy, non-smoker. Denies pleurtic chest pain. No history of DVT/PE. Denies chest pain, pressure, nausea, vomiting, reflux, numbness, tingling. Denies leg swelling, calf pain. Non-smoker. No history of CHF. PAST MEDICAL HISTORY Diagnosis Date Arthritis left knee, back Chronic kidney disease, stage 3a (HCC) 05/26/2023 Complication of anesthesia N/V DDD (degenerative disc disease), lumbar Diulus, Cole Diverticulosis of colon (without mention of hemorrhage) 05/27 Diverticulosis Head injury 1971 left hand numbness, decrease coordination on right (dominant) IFG (impaired fasting glucose) 03/2017 a1c 5.8% Insomnia, unspecified improved Mild atherosclerosis of carotid artery 2016 internal, 0-19% Papanicolaou smear of cervix with atypical squamous cells of undetermined significance (ASC-US) 2009 ASCUS HPV negative, Dr Whiteside Snoring Tremor left hand Unspecified essential hypertension borderline ALLERGIES Vicodin [Hydrocodone-Acetaminophen] and Vioxx [Rofecoxib] MEDICATIONS Current Outpatient Medications Medication Sig vit A,C,P-Pbxh-Xcbdsl (PRESERVISION AREDS) 2,148 mcg-113 mg-45 mg-17.4mg tab Take 1 tablet by mouth daily with breakfast. triamcinolone acetonide (KENALOG) 0.5 % cream Apply to affected area three times a day. metoprolol succinate ER (TOPROL XL) 50 mg 24 hr tablet Take 1 tablet by mouth once daily. gabapentin (NEURONTIN) 100 mg capsule Take 1-2 capsules by mouth two times a day as needed (neck and shoulder pain) for up to 30 days. methocarbamol (ROBAXIN) 500 mg tablet Take 1 tablet by mouth at bedtime as needed. metroNIDAZOLE (METROGEL) 0.75 % Topical Gel Apply to affected area twice daily. acetaminophen (TYLENOL EXTRA STRENGTH) 500 mg tablet Take 1,000 mg by mouth every 8 hours as needed. aspirin, enteric coated (ASPIRIN, ENTERIC COATED) 81 mg EC tablet Take 81 mg by mouth once daily. No current facility-administered medications for this visit. SOCIAL HISTORY Social History Tobacco Use Smoking status: Never Smokeless tobacco: Never Vaping Use Vaping status: Never Used Substance Use Topics Alcohol use: Yes Comment: 6 per year Drug use: No REVIEW OF SYSTEMS See HPI OBJECTIVE: BP 110/70 (BP Site: Left Arm, BP Position: Sitting, BP Cuff Size: Large Adult) Pulse (!) 59 Resp 14 Ht 175.3 cm (5' 9) Wt 115.8 kg (255 lb 6.4 oz) SpO2 94% BMI 37.72 kg/m? APPEARANCE Well appearing, alert, in no acute distress, well-hydrated, well nourished. HEART RRR with normal S1 and S2, no murmurs, LUNG clear to auscultation ASSESSMENT/PLAN: 1. Pneumonia of left lower lobe due to infectious organism - ICD9: 486, ICD10: J18.9 Symptoms resolving Repeat CXR in 4-6 weeks to confirm resolution Patient has been asymptomatic Consider holter monitor if notes elevated HR or palpitations. Reviewed red flags and when to seek care sooner. If SOB, would consider ECHO/stress None at this time, will wait. Keep f/u in July with PCP, sooner if any new or worsening symptoms. - XR CHEST 2V FRONTAL/LAT 2. Dizziness - ICD9: 780.4, ICD10: R42 Resolved. As above Reviewed red flags and when to seek care sooner in ED 3. Hypertension, essential - ICD9: 401.9, ICD10: I10 - Controlled - Recommend home blood pressure monitoring, to bring results to next visit - Encouraged sodium restriction, DASH or Mediterranean diet - Recommend regular aerobic exercise Pulse-59, currently on metoprolol. Nestor Crowe PA-C 05/28/2024[facility]11-05-2024 History of Present illness Narrative* Nestor Crowe PA-C - 05/28/2024 10:45 AM EST 05/28/2024 Patient presents with: Follow Up: [facility] ER follow up- SOB, elevated BP and elevated HR, SUBJECTIVE: This is a 73 year old that is here today for [facility] ED visit. She was having some tachycardia, elevated BP and SOB., seen in the office by myself and referred to ED. Changes on ECG noted in office. Cardiac enzymes and work up was negative. With recent travel concern for possible [id number] for age per ED. CXR did show a left lower lobe infiltreate. Trated with doxycycline. Overall tod ay feels good, no issue/concern. Has not had any more episodes. Previous visit: This is a 73 year old that is here today for Complaint(s) of feeling dizzy/faint and elevated BP this morning. Noted a little bit of SOB. , that has resolved. Denies any SOB coming back to the visit.She took BP at home this morning and BP was 120/101 and 119 pulse and then was jumping high then low. Repat BP was 116/78 with a 78 pulse per patient. [place] a little SOB with walking around. SOB hasresolved, but still has a mild ESCOBAR and a little dizziness. Describes as lightheadedness. Denies worst ESCOBAR of life. They returned from [place] last night-drove there and back. Not on any hormone therapy, non-smoker. Denies pleurtic chest pain. No history of DVT/PE. Denies chest pain, pressure, nausea, vomiting, reflux, numbness, tingling. Denies leg swelling, calf pain. Non- smoker. No history ofCHF. PAST MEDICAL HISTORY Diagnosis Date Arthritis left knee, back Chronic kidney disease, stage 3a (HCC) 05/26/2023 Complication of anesthesia N/V DDD (degenerative disc disease), lumbar Diulus, Cole Diverticulosis of colon (without mention of hemorrhage) 05/27 Diverticulosis Head injury 1971 left hand numbness, decrease coordination on right (dominant) IFG (impaired fasting glucose) 03/2017 a1c 5.8% Insomnia, unspecified improved Mild atherosclerosis of carotid artery 2016 internal, 0-19% Papanicolaou smear of cervix with atypical squamous cells of undetermined significance (ASC-US) 2009 ASCUS HPV negative, Dr Whiteside Snoring Tremor left hand Unspecified essential hypertension borderline ALLERGIES Vicodin [Hydrocodone-Acetaminophen] and Vioxx [Rofecoxib] MEDICATIONS Current Outpatient Medications Medication Sig vit A,C,M-Pphh-Nzqxnd (PRESERVISION AREDS) 2,148 mcg-113 mg-45 mg-17.4mg tab Take 1 tablet by mouthdaily with breakfast. triamcinolone acetonide (KENALOG) 0.5 % cream Apply to affected area three times a day. metoprolol succinate ER (TOPROL XL) 50 mg 24 hr tablet Take 1 tablet by mouth once daily. gabapentin (NEURONTIN) 100 mg capsule Take 1-2 capsules by mouth two times a day as needed (neck and shoulder pain) for up to 30 days. methocarbamol (ROBAXIN) 500 mg tablet Take 1 tablet by mouth at bedtime as needed. metroNIDAZOLE (METROGEL) 0.75 % Topical Gel Apply to affected area twice daily. acetaminophen (TYLENOL EXTRA STRENGTH) 500 mg tablet Take 1,000 mg by mouth every 8 hours as needed. aspirin, enteric coated (ASPIRIN, ENTERIC COATED) 81 mg EC tablet Take 81 mg by mouth once daily. No current facility-administered medications for this visit. SOCIAL HISTORY Social History Tobacco Use Smoking status: Never Smokeless tobacco: Never Vaping Use Vaping status: Never Used Substance Use Topics Alcohol use: Yes Comment: 6 per year Drug use: No REVIEW OF SYSTEMS See HPI OBJECTIVE: BP 110/70 (BP Site: Left Arm, BP Position: Sitting, BP Cuff Size: Large Adult) Pulse (!) 59 Resp 14 Ht 175.3 cm (5' 9) Wt 115.8 kg (255 lb 6.4 oz) SpO2 94% BMI 37.72 kg/m APPEARANCE Well appearing, alert, in no acute distress, well-hydrated, well nourished. HEART RRR with normal S1 and S2, no murmurs, LUNG clear to auscultation ASSESSMENT/PLAN: 1. Pneumonia of left lower lobe due to infectious organism - ICD9: 486, ICD10: J18.9 Symptoms resolving Repeat CXR in 4-6 weeks to confirm resolution Patient has been asymptomatic Consider holter monitor if notes elevated HR or palpitations. Reviewed red flags and when to seek care sooner. If SOB, would consider ECHO/stress None at this time, will wait. Keep f/u in July with PCP, sooner if any new or worsening symptoms. - XR CHEST 2V FRONTAL/LAT 2. Dizziness - ICD9: 780.4, ICD10: R42 Resolved. As above Reviewed red flags and when to seek care sooner in ED 3. Hypertension, essential - ICD9: 401.9, ICD10: I10 - Controlled - Recommend home blood pressure monitoring, to bring results to next visit - Encouraged sodium restriction, DASH or Mediterranean diet - Recommend regular aerobic exercise Pulse-59, currently on metoprolol. Nestor Crowe PA-C 05/28/2024 documented in this encounterC[facility]24 NoteHNO ID: [id number] Author: NESTOR CROWE PA-C Service: ? Author Type: Physician Wheel And Pinion Inspector Type: Progress Notes Filed: 05/08/2024 10:25 Note Text: 05/07/2024 Patient presents with: Same Day Appointment: elevated blood pressure and SOB, h/a, dizzy SUBJECTIVE: This is a 73 year old that is here today for Complaint(s) of feeling dizzy/faint and elevated BP this morning. Noted a little bit of SOB. , that has resolved. Denies any SOB coming back to the visit. She took BP at home this morning and BP was 120/101 and 119 pulse and then was jumping high then low. Repat BP was 116/78 with a 78 pulse per patient. [place] a little SOB with walking around. SOB has resolved, but still has a mild ESCOBAR and a little dizziness. Describes as lightheadedness. Denies worst ESCOBAR of life. They returned from [place] last night-drove there and back. Not on any hormone therapy, non-smoker. Denies pleurtic chest pain. No history of DVT/PE. Denies chest pain, pressure, nausea, vomiting, reflux, numbness, tingling. Denies leg swelling, calf pain. Non-smoker. No history of CHF. PAST MEDICAL HISTORY Diagnosis Date Arthritis left knee, back Chronic kidney disease, stage 3a (HCC) 05/26/2023 Complication of anesthesia N/V DDD (degenerative disc disease), lumbar Diulus, Cole Diverticulosis of colon (without mention of hemorrhage) 05/27 Diverticulosis Head injury 1971 left hand numbness, decrease coordination on right (dominant) IFG (impaired fasting glucose) 03/2017 a1c 5.8% Insomnia, unspecified improved Mild atherosclerosis of carotid artery 2016 internal, 0-19% Papanicolaou smear of cervix with atypical squamous cells of undetermined significance (ASC-US) 2009 ASCUS HPV negative, Dr Whiteside Snoring Tremor left hand Unspecified essential hypertension borderline ALLERGIES Vicodin [Hydrocodone-Acetaminophen] and Vioxx [Rofecoxib] MEDICATIONS Current Outpatient Medications Medication Sig triamcinolone acetonide (KENALOG) 0.5 % cream Apply to affected area three times a day. metoprolol succinate ER (TOPROL XL) 50 mg 24 hr tablet Take 1 tablet by mouth once daily. gabapentin (NEURONTIN) 100 mg capsule Take 1-2 capsules by mouth two times a day as needed (neck and shoulder pain) for up to 30 days. methocarbamol (ROBAXIN) 500 mg tablet Take 1 tablet by mouth at bedtime as needed. metroNIDAZOLE (METROGEL) 0.75 % Topical Gel Apply to affected area twice daily. acetaminophen (TYLENOL EXTRA STRENGTH) 500 mg tablet Take 1,000 mg by mouth every 8 hours as needed. aspirin, enteric coated (ASPIRIN, ENTERIC COATED) 81 mg EC tablet Take 81 mg by mouth once daily. No current facility-administered medications for this visit. SOCIAL HISTORY Social History Tobacco Use Smoking status: Never Smokeless tobacco: Never Vaping Use Vaping status: Never Used Substance Use Topics Alcohol use: Yes Comment: 6 per year Drug use: No REVIEW OF SYSTEMS See HPI OBJECTIVE: BP 114/72 (BP Site: Left Arm, BP Position: Sitting, BP Cuff Size: Large Adult) Pulse 63 Resp 14 Ht 175.3 cm (5' 9) Wt 115.2 kg (253 lb 15.5 oz) SpO2 95% BMI 37.50 kg/m? APPEARANCE Well appearing, alert, in no acute distress, well-hydrated, well nourished. EYES PERRLA, conjunctiva and sclera normal. NECK Supple, no adenopathy; thyroid symmetric, normal size, no bruits HEART RRR with normal S1 and S2, no murmurs, no gallops, no JVD appreciated LUNG clear to auscultation, No wheezing, rhonchi, rales. EXTREMITIES Extremities normal, No deformities, No skin discoloration, + JERAD Trace edema in ankle JERAD. No calf TTP, no erythema, warmth, Negative Homans'. and Normal pulses bilaterally. Neuro:Gait normal. Reflexes normal and symmetric. Sensation grossly intact. CN intact. ASSESSMENT/PLAN: 1. Dizziness - ICD9: 780.4, ICD10: R42 (primary diagnosis) Resolved currently - ECG COMPLETE - BASIC METABOLIC PANEL - COMPLETE BLOOD COUNT AND DIFFERENTIAL - NT PRO BNP - D-DIMER - XR CHEST 2V FRONTAL/LAT 2. SOB (shortness of breath) - ICD9: 786.05, ICD10: R06.02 Resolved currently. - ECG COMPLETE - BASIC METABOLIC PANEL - COMPLETE BLOOD COUNT AND DIFFERENTIAL - NT PRO BNP - D-DIMER, trace JERAD LE ankle, otherwise no unilateral edema, negative Homans' JERAD, no chest pain, pleuritic chest pain. - XR CHEST 2V FRONTAL/LAT *Reviewing ECG with supervising physician-Dr. Frias, subtle changes in anterior leads-advise ED for further evaluation. Patient declines squad. will drive over for further evaluation. The patient indicates understanding of these issues and agrees with the plan. [facility]10-15-2024 History of Present illness Narrative* Nestor Crowe PA-C - 05/07/2024 1:12 PM EDT 05/07/2024 Patient presents with: Same Day Appointment: elevated blood pressure and SOB, h/a, dizzy SUBJECTIVE: This is a 73 year old that is here today for Complaint(s) of feeling dizzy/faint and elevated BP this morning. Noted a little bit of SOB. , that has resolved. Denies any SOB coming back to the visit. She took BP at home this morning and BP was 120/101 and 119 pulse and then was jumping high then low. Repat BP was 116/78 with a 78 pulse per patient. [place] a little SOB with walking around. SOB has resolved, but still has a mild ESCOBAR and a little dizziness. Describes as lightheadedness.Denies worst ESCOBAR of life. They returned from [place] last night-drove there and back. Not on anyhormone therapy, non- smoker. Denies pleurtic chest pain. No history of DVT/PE. Denies chest pain, pr essure, nausea, vomiting, reflux, numbness, tingling. Denies leg swelling, calf pain. Non-smoker. No history of CHF. PAST MEDICAL HISTORY Diagnosis Date Arthritis left knee, back Chronic kidney disease, stage 3a (HCC) 05/26/2023 Complication of anesthesia N/V DDD (degenerative disc disease), lumbar Diulus, Cole Diverticulosis of colon (without mention of hemorrhage) 05/27 Diverticulosis Head injury 1971 left hand numbness, decrease coordination on right (dominant) IFG (impaired fasting glucose) 03/2017 a1c 5.8% Insomnia, unspecified improved Mild atherosclerosis of carotid artery 2016 internal, 0-19% Papanicolaou smear of cervix with atypical squamous cells of undetermined significance (ASC-US) 2009 ASCUS HPV negative, Dr Whiteside Snoring Tremor left hand Unspecified essential hypertension borderline ALLERGIES Vicodin [Hydrocodone-Acetaminophen] and Vioxx [Rofecoxib] MEDICATIONS Current Outpatient Medications Medication Sig triamcinolone acetonide (KENALOG) 0.5 % cream Apply to affected area three times a day. metoprolol succinate ER (TOPROL XL) 50 mg 24 hr tablet Take 1 tablet by mouth once daily. gabapentin (NEURONTIN) 100 mg capsule Take 1-2 capsules by mouth two times a day as needed (neck and shoulder pain) for up to 30 days. methocarbamol (ROBAXIN) 500 mg tablet Take 1 tablet by mouth at bedtime as needed. metroNIDAZOLE (METROGEL) 0.75 % Topical Gel Apply to affected area twice daily. acetaminophen (TYLENOL EXTRA STRENGTH) 500 mg tablet Take 1,000 mg by mouth every 8 hours as needed. aspirin, enteric coated (ASPIRIN, ENTERIC COATED) 81 mg EC tablet Take 81 mg by mouth once daily. No current facility-administered medications for this visit. SOCIAL HISTORY Social History Tobacco Use Smoking status: Never Smokeless tobacco: Never Vaping Use Vaping status: Never Used Substance Use Topics Alcohol use: Yes Comment: 6 per year Drug use: No REVIEW OF SYSTEMS See HPI OBJECTIVE: BP 114/72 (BP Site: Left Arm, BP Position: Sitting, BP Cuff Size: Large Adult) Pulse 63 Resp 14 Ht 175.3 cm (5' 9) Wt 115.2 kg (253 lb 15.5 oz) SpO2 95% BMI 37.50 kg/m APPEARANCE Well appearing, alert, in no acute distress, well-hydrated, well nourished. EYES PERRLA, conjunctiva and sclera normal. NECK Supple, no adenopathy; thyroid symmetric, normal size, no bruits HEART RRR with normal S1 and S2, no murmurs, no gallops, no JVD appreciated LUNG clear to auscultation, No wheezing, rhonchi, rales. EXTREMITIES Extremities normal, No deformities, No skin discoloration, + JERAD Trace edema in ankle JERAD. No calf TTP, no erythema, warmth, Negative Homans'. and Normal pulses bilaterally. Neuro:Gait normal. Reflexes normal and symmetric. Sensation grossly intact. CN intact. ASSESSMENT/PLAN: 1. Dizziness - ICD9: 780.4, ICD10: R42 (primary diagnosis) Resolved currently - ECG COMPLETE - BASIC METABOLIC PANEL - COMPLETE BLOOD COUNT AND DIFFERENTIAL - NT PRO BNP - D-DIMER - XR CHEST 2V FRONTAL/LAT 2. SOB (shortness of breath) - ICD9: 786.05, ICD10: R06.02 Resolved currently. - ECG COMPLETE - BASIC METABOLIC PANEL - COMPLETE BLOOD COUNT AND DIFFERENTIAL - NT PRO BNP - D-DIMER, trace JERAD LE ankle, otherwise no unilateral edema, negative Homans' JERAD, no chest pain, pleuritic chest pain. - XR CHEST 2V FRONTAL/LAT *Reviewing ECG with supervising physician-Dr. Frias, subtle changes in anterior leads-advise ED for further evaluation. Patient declines squad. will drive over for further evaluation. The patient indicates understanding of these issues and agrees with the plan. Nestor Crowe PA-C documented in this encounterC[facility]10-[facility]24 NoteHNO ID: [id number] Author: RAMON DAVIS PA Service: ? Author Type: Physician Wheel And Pinion Inspector Type: Progress Notes Filed: 05/07/2024 12:37 Note Text: 73-year-old female presents for occasional shortness of breath starting this morning. Patient states she got up today and felt little short of breath and little bit dizzy. No chest pain. She denies any palpitations. States she has family history of A-fib. She was concerned she might be in it. She did take her blood pressure at home. She states 1 reading was high, 1 reading was normal, so wanted to come in and be checked out. Recommended evaluation with family practice. We were able to schedule the patient an appointment at 1:20 PM. Patient agreeable. No acute distress at this time. Normal gait. Heart regular rate and rhythm on my exam.[facility]10-15-[facility] History of Present illness Narrative* Ramon Davis PA - 05/07/2024 12:36 PM EDT 73-year-old female presents for occasional shortness of breath starting this morning. Patient states she got up today and felt little short of breath and little bit dizzy. No chest pain. She denies any palpitations. States she has family history of A-fib. She was concerned she might be in it. She did take her blood pressure at home. She states 1 reading was high, 1 reading was normal, so wanted to come in and be checked out. Recommended evaluation with family practice. We were able to schedule the patient an appointment at 1:20 PM. Patient agreeable. No acute distress at this time. Normal gait. Heart regular rate and rhythm on my exam. documented in this encounterC[facility]10-11-2024 Telephone encounter Note * Telephone Encounter - Gabi Ramos LPN - 05/03/2024 9:07 AM EDT Detailed VM left on pt's identified voicemail of information below. Gabi Ramos LPN [facility]10-11-2024 Miscellaneous Notes* Telephone Encounter - Gabi Ramos LPN - 05/03/2024 9:07 AM EDT Detailed VM left on pt's identified voicemail of information below. Gabi Ramos LPN * Telephone Encounter - Malissa Perez MA - 05/03/2024 8:54 AM EDT 2nd attempt. Left message to return call Malissa Perez MA * Telephone Encounter - Malissa Perez MA - 05/02/2024 8:28 AM EDT Left message to return call Malissanavin Perez MA * Telephone Encounter - Pete Morejon DO - 05/01/2024 10:25 PM EDT Please inform patient that her mammogram is normal/negative. She will need routine screening mammogram in 1 year. Thanks Pete Morejon DO' documented in this encounterC[facility]10-11-2024 Telephone encounter Note * Telephone Encounter - Malissa Perez MA - 05/03/2024 8:54 AM EDT 2nd attempt. Left message to return call Malissanavin Perez MA [facility]10-10-2024 Telephone encounter Note* Telephone Encounter - Malissa Perez MA - 05/02/2024 8:28 AM EDT Left message to return call Malissa Perez MA [facility]10-09-2024 Telephone encounter Note* Telephone Encounter - Pete Morejon DO - 05/01/2024 10:25 PM EDT Please inform patient that her mammogram is normal/negative. She will need routine screening mammogram in 1 year. Thanks Pete Morejon DO' [facility]10-08-[facility] History of Present illness Narrative* Ebenezer Lowery, Mammo Tech - 04/30/2024 11:30 AM EDT Radiology Service Progress Note PATIENT NAME: Mary Reyes DATE OF SERVICE: April 30, 2024 TIME: 11:58 AM PATIENT IDENTITY VERIFICATION COMPLETED USING TWO (2) IDENTIFIERS: Name and Date of confirmedby patient verbally. FALL SCREENING: Has the patient had 2 falls in the last year or 1 fall with injury or currently using an Ambulatory Assistive Device (Walker, Cane, Wheelchair, Crutches, etc.)? No PATIENT GENDER DATA: Female. status: : No status: NO. PATIENT RELEVANT IMPLANT DATA REVIEWED: Not Applicable PATIENT PRESENTS WITH AN IMPLANTABLE OR ATTACHED DEPENDENCY DIRECTOR: No RADIOLOGY DEPARTMENT: Mammography PERIPHERAL IV DATA: Not applicable SIGNED BY: Sriram Tobar April 30, 2024 11:58 AM documented in this encounterC[facility]10-08-2024 NoteHNO ID: [id number] Author: EBENEZER LOWERY Mammo Tech Service: ? Author Type: Technologist Type: Progress Notes Filed: 04/30/2024 11:58 Note Text: Radiology Service Progress Note PATIENT NAME: Mary Reyes DATE OF SERVICE: April 30, 2024 TIME: 11:58 AM PATIENT IDENTITY VERIFICATION COMPLETED USING TWO (2) IDENTIFIERS: Name and Date of confirmed by patient verbally. FALL SCREENING: Has the patient had 2 falls in the last year or 1 fall with injury or currently using an Ambulatory Assistive Device (Walker, Cane, Wheelchair, Crutches, etc.)? No PATIENT GENDER DATA: Female. status: : No status: NO. PATIENT RELEVANT IMPLANT DATA REVIEWED: Not Applicable PATIENT PRESENTS WITH AN IMPLANTABLE OR ATTACHED DEPENDENCY DIRECTOR: No RADIOLOGY DEPARTMENT: Mammography PERIPHERAL IV DATA: Not applicable SIGNED BY: Sriram Tobar April 30, 2024 11:58 [facility]07-12-2024 Telephone encounter Note* Telephone Encounter - Nahomi Sanchez LPN - 02/02/2024 8:33 AM EDT Pt was assisted to schedule mammogram. Nahomi Sanchez LPN [facility]07-12-2024 Miscellaneous Notes* Telephone Encounter - Nahomi Sanchez LPN - 02/02/2024 8:33 AM EDT Pt was assisted to schedule mammogram. Nahomi Sanchez LPN * Telephone Encounter - Leona Monsalve - 02/01/2024 4:56 PM EDT Contacted pt to schedule annual in soonest available appointment. * Telephone Encounter - Savanah Soria MD - 01/26/2024 7:04 PM EDT Cream ordered per patient request. typically ointment better for vaginal area. Please make sure patient makes appt. * Telephone Encounter - Yashira Yap RN - 01/26/2024 1:21 PM EDT Patient comment: Cream would be preferable if possible. Her current rx is for ointment. Last visit 05/09/22. Requested Prescriptions Pending Prescriptions Disp Refills triamcinolone acetonide topical 0.5 % ointment 15 g 0 Sig: Use 1-3 times weekly for maintenance therapy Yashira Yap RN documented in this encounterC[facility]07-11-2024 Telephone encounter Note * Telephone Encounter - Leona Monsalve - 02/01/2024 4:56 PM EDT Contacted pt to schedule annual in soonest available appointment. [facility] Work Phone: [phone]) 889-282107-05-2024 Telephone encounter Note* Telephone Encounter - Savanah Soria MD - 01/26/2024 7:04 PM EDT Cream ordered per patient request. typically ointment better for vaginal area. Please make sure patient makes appt. [facility]07-05-[facility] Telephone encounter Note* Telephone Encounter - Yashira Yap RN - 01/26/2024 1:21 PM EDT Patient comment: Cream would be preferable if possible. Her current rx is for ointment. Last visit 05/09/22. Requested Prescriptions Pending Prescriptions Disp Refills triamcinolone acetonide topical 0.5 % ointment 15 g 0 Sig: Use 1-3 times weekly for maintenance therapy Yashira Yap RN [facility]05-09-2024 Telephone encounter Note* Telephone Encounter - Gayle Sousa LPN - 11/30/2023 10:32 AM EDT Spoke with pt gave information provided. Pt voices understanding. [facility]05-09-[facility]24 Miscellaneous Notes* Telephone Encounter - Gayle Sousa LPN - 11/30/2023 10:32 AM EDT Spoke with pt gave information provided. Pt voices understanding. * Telephone Encounter - Pete Morejon DO - 11/30/2023 10:17 AM EDT Please inform patient that her A1c is up to 5.8% and her serum creatinine is slightly high at 0.98.needs to cut back on sugars and starches and increase her fluid intake to at least 60-80 oz a day Pete Morejon DO documented in this encounterC[facility]05-09-2024 Telephone encounter Note * Telephone Encounter - Pete Morejon DO - 11/30/2023 10:17 AM EDT Please inform patient that her A1c is up to 5.8% and her serum creatinine is slightly high at 0.98.needs to cut back on sugars and starches and increase her fluid intake to at least 60-80 oz a day Pete Morejon DO [facility]11-16-2023 Miscellaneous Notes* Telephone Encounter - Gabi Ramos LPN - 06/08/2023 10:30 AM EST Spoke with pt and information listed below given. Pt verbalizes understanding. Gabi Ramos LPN * Telephone Encounter - Clotilde Bauman LPN - 06/08/2023 8:23 AM EST Phoned patient and left message to return call and ask to speak to a triage nurse for results. * Telephone Encounter - Pete Morejon DO - 06/07/2023 9:10 PM EST Please inform patient that her CT of the neck is normal. No abnormal mass or enlarged lymph nodes. This area of swelling must be a lipoma. Can consider seeing surgeon if any pain in the area. Otherwise no concerns Pete Morejon DO documented in this encounterC[facility]11-15-2023 History of Present illness Narrative* Jin Cole MD - 06/07/2023 10:54 AM EST [facility] Date: June 07, 2023 - 10:54 AM Mary Reyes is seen in consultation requested by Dr. Pete Morejon for an opinion regarding chronic neck pain. My final recommendations will be communicated back to the requesting physician byway of shared medical record or via US mail. Chief Complaint: neck pain SUBJECTIVE: Mary Reyes, is a 72 year old female who presents with neck pain. The pain started 1 months ago,with no known injury or trauma. The pain onset was gradual in nature. The patient states that the current pain is persistent. Her pain is located in the left posterior cervical region and radiates toleft upper extremity along lateral aspect to the level of fingers. // The pain is described as aching, numbness, and shooting. The pain intensity is rated 6. The pain isexacerbated by about everything and relieved by medication and relaxation. Symptoms interfere with physical activity, walking, sleeping, sitting, bathing, driving, cooking, household cleaning, reaching for shelves, lifting, and social activities. 20% pain in spine vs 80% (radiating) pain in the extremity. Litigation: No. Worker's Compensation: No. Prior pain treatment has included: -Medications: She has tried taking Tylenol, Methocarbamol and Prednisone with no relief. OTC NSAIDSwith no relief. She is currently on Gabapentin with some relief. ALLERGIES Allergen Reactions Vicodin [Hydrocodon* Rash Vioxx [Rofecoxib] GI Upset Current Medications: Pain medications reviewed and reconciled in the medication list: Yes. Current Outpatient Medications Medication Sig methocarbamol (ROBAXIN) 500 mg tablet Take 1 tablet by mouth at bedtime as needed. predniSONE (DELTASONE) 10 mg tablet Take 4 tabs daily x 3 days, then 3 tabs x 3 days, 2 tabs x 3 days, then 1 tab x3 days with food. gabapentin (NEURONTIN) 100 mg capsule Take 1-2 capsules by mouth three times a day as needed (neck and shoulder pain) for up to 30 days. triamcinolone acetonide topical 0.5 % ointment Use 1-3 times weekly for maintenance therapy metoprolol succinate ER (TOPROL XL) 50 mg 24 hr tablet Take 1 tablet by mouth once daily. metroNIDAZOLE (METROGEL) 0.75 % Topical Gel Apply to affected area twice daily. acetaminophen (TYLENOL EXTRA STRENGTH) 500 mg tablet Take 1,000 mg by mouth every 8 hours as needed. aspirin, enteric coated (ASPIRIN, ENTERIC COATED) 81 mg EC tablet Take 81 mg by mouth once daily. No current facility-administered medications for this visit. PAST MEDICAL HISTORY Diagnosis Date Arthritis left knee, back Chronic kidney disease, stage 3a (HCC) 05/26/2023 Complication of anesthesia N/V DDD (degenerative disc disease), lumbar Diulus, Cole Diverticulosis of colon (without mention of hemorrhage) 05/27 Diverticulosis Head injury 1970 left hand numbness, decrease coordination on right (dominant) IFG (impaired fasting glucose) 03/2017 a1c 5.8% Insomnia, unspecified improved Mild atherosclerosis of carotid artery 2016 internal, 0-19% Papanicolaou smear of cervix with atypical squamous cells of undetermined significance (ASC-US) 2009 ASCUS HPV negative, Dr Whiteside Snoring Tremor left hand Unspecified essential hypertension borderline PAST SURGICAL HISTORY Procedure Laterality Date ARTHROSCOPY KNEE DIAGNOSTIC W/WO SYNOVIAL BX SPX 03/25/2003 Arthroscopy, knee LEFT ARTHRP ACETBLR/PROX FEM PROSTC AGRFT/ALGRFT Left 03/27/[address] Mederos, [facility] ARTHRP KNE CONDYLE&PLATU MEDIAL&LAT COMPARTMENTS 10/04/10 Knee replacement, total Knee ARTHRP KNE CONDYLE&PLATU MEDIAL&LAT COMPARTMENTS Right 10/01/2018 Dr. Mata, [facility] COLONOSCOPY FLX DX W/COLLJ SPEC WHEN PFRMD 06/02/04 Repeat in COLONOSCOPY FLX DX W/COLLJ SPEC WHEN PFRMD 06/23/14 no polyps EYE SURGERY HX 06/27/14 left laeral rectus recession-strabismus F SI JOINT INJECTION 02/02/12 LIG/TRNSXJ FLP TUBE ABDL/VAG APPR UNI/BI 1982 Tubal ligation NEUROPLASTY &/TRANSPOS MEDIAN NRV CARPAL TUNNE 09/2000 Carpal tunnel decomp LEFT PAST SURGICAL HISTORY OF 1988 LEFT EYE, strabismus repair after injury PAST SURGICAL HISTORY OF 1970 skull fracture (ice skating) FAMILY HISTORY Problem Relation Age of Onset Heart Mother atrial fibrilation/diverticulitis/osteoporosis Stroke Father Breast Cancer Maternal Grandmother Stroke Maternal Grandmother Stroke Paternal Grandfather Heart Brother Social History: Alcohol Use: Yes (6 per year) Tobacco Use: Never Drug Use: No Employer And Job Title: [employer] (retired) Years Of Education Completed: 12 years Marital Status: to Asael with 3 children REVIEW OF SYSTEMS: Constitutional: (-) Fever (-) Night Sweats (-) Weight Gain (-) Weight Loss (-) Fatigue Cardiovascular: (-) Chest Pain (-) Palpitations (-) Lightheadedness (-) Swelling of Ankles (-) Hx Heart Surgery Respiratory: (-) Shortness of Breath (-) Cough (-) Wheezing (+) Snoring Gastrointestinal: (-) Incontinence (-) Abdominal Pain (-) Diarrhea (-) Constipation (-) Nausea/Vomiting (-) Heart Burn Endocrine: (-) Thyroid Disorder (-) Diabetes Hematologic: (-) Prolonged Bleeding (+) Easy Bruising Genitourinary: (-) Incontinence (-) Frequency (-) Urinary Urgency Skin: (-) Rashes (-) Itching (-) Other Lesions Neurologic: (-) Headache (-) Double Vision (-) Confusion (-) Paralysis (-) Vertigo (-) Syncope Psychiatric: (-) Depression (-) Anxiety (-) Delusions (-) Hallucinations (-) Suicidal Thoughts OARRS Report reviewed: Yes Narcotic Agreement reviewed and signed?: N/A Baseline Urine Toxicology obtained: N/A Urine Panel: No results found for: UQCANN, UQBNZL, EUR3KWK, UQAMPH, UQMAMP, UQBUPRE, UQNORBUP, UQMTHD, UQEDDP, UQTRAM, UQDTRM, UQFNTL, UQNFTL, UQCODE, UQMORP, UQDCDN, UQHCOD, UQOXYC, UQHMOR, UQOXYM, UQCREA, UQPH, UQSPGR, UQOXID, UQSPQ The pain panel was N/A OBJECTIVE: Performed in conjunction with observation. The patient was alert and oriented x3. The patient was in no acute distress. Lungs: Clear, negative for dyspnea or distress. CVR: Negative for SOB or peripheral edema. Neck: Supple. Leans to her left. The range of motion was intact. Negative focal tenderness. Cervical facet loading: negative Spurling's: negative Back: Range of motion of the trunk was intact. SLR: negative Facet Loading: negative with axial loading and extension. SI joint: negative PSIS tenderness. Extremities: no reported edema or erythema. Left shoulder with tenderness over the AC joint and GH joint. ROM decreased. Motor: negative Sensory: intact to light touch and sharp bilateral upper extremities Gait: WNL Medical record and diagnostic tests reviewed for today's visit: The [facility] EMR was reviewed during thevisit IMAGING STUDIES: No new imaging studies were reviewed during this office visit. 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 Discussed conservative options and focus on improvement of function and the concerns of ongoing or developing chronic pain. Discussed the rationale behind interventional approach and how it can facilitate improvement of pain but also diagnostic information that procedures provide. skilled nursing use of any opioid pain medication is discouraged in chronic benign pain. PLAN: 1. Recommend PT. 2. No interventional procedures indicated at this time 3. No new medication was prescribed. 4. Counseled patient regarding the importance of activity modification and exercise. 5. Follow up:6-8 weeks. The above plan and management options were discussed with patient. The patient is in agreement withthe above and verbalized understanding. I have discussed and confirmed the above treatment plan with the patient and I have reviewed the nurses notes and I am aware of the family/social history. I have confirmed ROS findings. Jin Cole MD 1. This document has been created with the use of voice recognition technology. It may contain inaccuracies: (e.g. misspellings, inaccurate syntax or word sense) that have escaped review. 2. The nurse practitioner, nursing staff and medical assistants are a major part of YOUR TREATMENT TEAM and will be handling your phone calls and inquiries, if any. Unless explicitly told otherwise at the time of your office visit, your study results and ensuing treatment plans will be discussed during your follow- up appointment. If you do not have a follow-up appointment and wish to discuss any issues, please set up an appointment. 3. It is my practice to not fill disability or any other insurance-related forms/documentation. Allof the office notes, study results, and other pertinent documentation generated as part of your evaluation will be available to you and to your Primary Care Physician (PCP). Use of this material to complete such forms will be at the discretion of your PCP/referring physician. June 07, 2023 cc: Pete Morejon [address] [facility] [place] [address] Results of consultation to be transmitted via electronic medical record for those providers who practice within [facility] or with access to [employer] via MD Connect, or via letter. documented in this encounterC[facility]11-14-2023 Miscellaneous Notes* Telephone Encounter - Darline Franklin Ma - 06/06/2023 2:09 PM EST Patient contacted via telephone regarding upcoming NEW patient appointment with Dr. Cole on 06/07/23. Patient informed of the following: [facility] is the [facility] calling regarding your upcoming appointment with Dr. Cole. Please complete the assigned pre-visit questionnaires on Netasq prior to your appointment. To avoid a delay in your care, please bring any radiology images that have been done outside [facility] on a disk to be viewed at your appointment. Dr. Cole is an Interventional Pain Management provider specializing in the Spine. Please be aware that this appointment is a consult only and narcotics will NOT be prescribed. He treats with physicaltherapy, injections of the spine or joints, and non-narcotic medications. Dr. Cole will not take over and manage any medications that are already being prescribed by another provider. Dr. Cole does not fill disability or any other insurance-related forms/documentation Patient verbalized understanding with no additional questions at this time. documented in this encounterCleveland Clinic [facility]11-08-2023 History of Present illness Narrative* Nahomi Landaverde RT(R) - 05/31/2023 11:00 AM EST Radiology Service Progress Note DATE OF SERVICE: May 31, 2023 TIME: 4:15 PM PATIENT IDENTITY VERIFICATION COMPLETED USING TWO (2) STANDARD IDENTIFIERS: Name and Date of confirmed by patient verbally. FALL SCREENING: Has the patient had 2 falls in the last year or 1 fall with injury or currently using an Ambulatory Assistive Device (Walker, Cane, Wheelchair, Crutches, etc.)? No PATIENT GENDER DATA: Female. status: : No status: NO. PATIENT RELEVANT IMPLANT DATA REVIEWED: Yes ALLERGIES: Reviewed and unchanged CONTRAST ALLERGY: NO. EXAM: CT -CONTRAST INDUCED NEPHROPATHY RISK FACTORS: Patient age > 60 years CREATININE: Creatinine Date Value Ref Range Status 05/23/2023 1.02 (H) 0.58 - 0.96 mg/dL Final 03/22/2022 0.96 0.58 - 0.96 mg/dL Final 04/19/2021 1.00 (H) 0.58 - 0.96 mg/dL Final Estimated Glomerular Filtration Rate Date Value Ref Range Status 05/23/2023 59 (L) >=60 mL/min/1.73m Final Comment: Estimated Glomerular Filtration Rate (eGFR) is calculated using the 2020 CKD-EPI creatinine equation. This equation utilizes serum creatinine, sex, and age as parameters. The creatinine assay has traceable calibration to isotope dilution- mass spectrometry. Refer to KDIGO guidelines for clinical interpretation. In patients with unstable renal function, e.g. those with acute kidney injury, the eGFRmay not accurately reflect actual GFR. eGFR- Date Value Ref Range Status 04/19/2021 >60 Final P.O.C.T. RESULTS: POC done: Yes, See Lab Tab May 31, 2023 TREATMENT: N/A PERIPHERAL IV DATA: Ambulatory: A peripheral IV was started in the Left antecubital site with a Angio cath: 22 gauge. RADIOLOGY DEPARTMENT: CT; Exam(s) Completed: Neck SIGNATURE: RT Kevin(R) PATIENT NAME: Mary Reyes DATE: May 31, 2023 TIME: 4:15 PM documented in this encounterCleveland Clinic [facility]11-06-2023 Miscellaneous Notes* Telephone Encounter - Blanca Flood RN - 05/29/2023 3:30 PM EST Please Help Patient to Schedule Appointment. Blanca Flood RN * Telephone Encounter - Luna Bruce APRN.JOYCE - 05/29/2023 12:28 PM EST Consult placed. Please schedule. Thank you, Luna Bruce APRN.WOLF HUNTER * Telephone Encounter - Kathleen Garibay RN - 05/29/2023 10:35 AM EST Pt called and is notified of providers results and instructions. Pt voices understanding. Pt askingif provider could put in order for pain management as well. She said she was going to wait a week to see how her neck feels before scheduling appointment. Kathleen Garibay RN * Telephone Encounter - Blanca Flood RN - 05/29/2023 8:48 AM EST TC patient, left message for patient to call back and speak with a triage nurse regarding results and provider instructions. Blanca Flood RN * Telephone Encounter - Pete Morejon DO - 05/29/2023 7:26 AM EST Please inform patient that her left shoulder xray is normal but her neck xray shows moderate to severe disc disease and arthritis changes in her neck/cervical spine asbelow Moderate to marked disc space narrowing is noted at C4-5, C5-6 and C6-7 with degenerative endplate spurring. Moderate to marked left neural foraminal narrowing is noted at C3-4, C4-5 and C5-6. Multilevel facet degenerative changes are noted. Can consider PHYSICAL THERAPY as well as spine injections by pain mgmt if interested Pete Morejon DO documented in this encounterC[facility]11-06-2023 Miscellaneous Notes* Telephone Encounter - Kathleen Garibay RN - 05/29/2023 10:34 AM EST Pt called and is notified of providers results and instructions. Pt voices understanding. Pt will increase her Vit D3 to 2000 international unit(s) as she already takes the 1000 international unit(s). Kathleen Garibay RN * Telephone Encounter - Malissa Perez - 05/26/2023 2:22 PM EDT Left message to return call Malissa Perez * Telephone Encounter - Pete Morejon DO - 05/26/2023 2:12 PM EDT Please call patient and let her know that I reviewed her labs again since computers were down this AM. Her vitamin B12 was also low normal. Needs to be taking vitamin B12 1000 mcg a day in the AM Also needs to be taking at least 5501-5734 international unit(s) a day of vitamin D3 with a meal, added to whatever she is already taking Pete Morejon DO documented in this encounterC[facility]11-03-2023 History of Present illness Narrative* Pete Morejon DO - 05/26/2023 2:05 PM EDT CC: Mary Reyes is a 72 year old female who presents to the office for follow up HPI: Neck pain and referring into left shoulder area. Started about 2 weeks ago, continuous but worsens,aching and into posterior and anterior shoulder area. Radiates down to 5th finger in left hand withtingling and burning sensation. No known injuries. Symptoms started 2 days after recent travel to [place] to see family. Pain at 8/10 on scale. This Monday, 4 days ago, she went to massage therapist to see if this would help symptoms with minimal benefit. No fevers or chills or redness or blistering She is interested in flu vaccine. She is in need of mammogram PAST MEDICAL HISTORY Diagnosis Date Arthritis left knee, back Complication of anesthesia N/V DDD (degenerative disc disease), lumbar Diulus, Cole Diverticulosis of colon (without mention of hemorrhage) 05/27 Diverticulosis Head injury 1970 left hand numbness, decrease coordination on right (dominant) IFG (impaired fasting glucose) 03/2017 a1c 5.8% Insomnia, unspecified improved Mild atherosclerosis of carotid artery 2016 internal, 0-19% Papanicolaou smear of cervix with atypical squamous cells of undetermined significance (ASC-US) 2009 ASCUS HPV negative, Dr Whiteside Snoring Tremor left hand Unspecified essential hypertension borderline PAST SURGICAL HISTORY Procedure Laterality Date ARTHROSCOPY KNEE DIAGNOSTIC W/WO SYNOVIAL BX SPX 03/25/2003 Arthroscopy, knee LEFT ARTHRP ACETBLR/PROX FEM PROSTC AGRFT/ALGRFT Left 03/27/[address] Mederos, [facility] ARTHRP KNE CONDYLE&PLATU MEDIAL&LAT COMPARTMENTS 10/04/10 Knee replacement, total Knee ARTHRP KNE CONDYLE&PLATU MEDIAL&LAT COMPARTMENTS Right 10/01/2018 Dr. Mata, [facility] COLONOSCOPY FLX DX W/COLLJ SPEC WHEN PFRMD 06/02/04 Repeat in COLONOSCOPY FLX DX W/COLLJ SPEC WHEN PFRMD 06/23/14 no polyps EYE SURGERY HX 06/27/14 left laeral rectus recession-strabismus F SI JOINT INJECTION 02/02/12 LIG/TRNSXJ FLP TUBE ABDL/VAG APPR UNI/BI 1982 Tubal ligation NEUROPLASTY &/TRANSPOS MEDIAN NRV CARPAL TUNNE 09/2000 Carpal tunnel decomp LEFT PAST SURGICAL HISTORY OF 1988 LEFT EYE, strabismus repair after injury PAST SURGICAL HISTORY OF 1970 skull fracture (ice skating) Current Outpatient Medications Medication Sig triamcinolone acetonide topical 0.5 % ointment Use 1-3 times weekly for maintenance therapy metoprolol succinate ER (TOPROL XL) 50 mg 24 hr tablet Take 1 tablet by mouth once daily. metroNIDAZOLE (METROGEL) 0.75 % Topical Gel Apply to affected area twice daily. acetaminophen (TYLENOL EXTRA STRENGTH) 500 mg tablet Take 1,000 mg by mouth every 8 hours as needed. aspirin, enteric coated (ASPIRIN, ENTERIC COATED) 81 mg EC tablet Take 81 mg by mouth once daily. No current facility-administered medications for this visit. ALLERGIES Allergen Reactions Vicodin [Hydrocodon* Rash Vioxx [Rofecoxib] GI Upset Social History Tobacco Use Smoking status: Never Smokeless tobacco: Never Vaping Use Vaping Use: Never used Substance Use Topics Alcohol use: Yes Comment: 6 per year Drug use: No ROS: Gen: Negative fevers or chills. See HPI PE: BP 124/80 Pulse 64 Temp (Src) 96.7 (Left Tympanic) Resp 20 Ht 5' 9.9 (1.78m) Wt 247 lb (112.0kg) BMI 35.56 kg/(m^2). Gen: A&OX3, NAD, non-toxic appearing HEENT: PERRLA, EOMs intact b/l, nares without drainage, pharynx without erythema, exudate, lesions,or drainage. Uvula midline. Neck: No LAD, no thyromegaly, no meningismus. + left neck swelling supraclavicular area without skin changes with some pain present. Also with paraspinal neck muscle spasm and reduced extension and b/l rotation and side bending, no spinal midline TTP spine Left shoulder with limited flexion, extension to only 45-60 degrees without pain and minimal extension and internal rotation due to pain. + signs of bursitis left shoulder on examination. 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 Abd: obese, ND, NT, Normal BS No edema legs, normal pulses ASSESSMENT/PLAN: 1. Localized swelling, mass and lump, neck - ICD9: 784.2, ICD10: R22.1 (primary diagnosis) Need for CT neck soft tissue, concerns for supraclavicular mass on left with pain present, no knowninjuries. Has fatigue, no other new symptoms. Xray of shoulder and neck need to be completed, start on prednisone and prn muscle relaxant and gabapentin for pain. Consider PHYSICAL THERAPY and f/u with pain mgmt or orthopedics if not improving as d/w her today - CT NECK SOFT TISSUE W IVCON - IV CONTRAST (RADIOLOGY PROCEDURE) 2. Need for influenza vaccination - ICD9: V04.81, ICD10: Z23 - INFLUENZA VACCINE, PRSV FREE, AGE 65+ YR, HIGH DOSE, QUADRIVALENT (FLUZONE HIGH-DOSE) 3. Encounter for screening mammogram for malignant neoplasm of breast - ICD9: V76.12, ICD10: Z12.31 - Set up for mammogram, yearly mammogram recommended - Encouraged monthly BSE - Increase calcium intake with supplements or by diet (goal of 6164-3790 mg/day - LISBET SCREENING 4. Fatigue, unspecified type - ICD9: 780.79, ICD10: R53.[address] neck soft tissue, concerns for supraclavicular mass on left with pain present, no knowninjuries. Has fatigue, no other new symptoms. - CT NECK SOFT TISSUE W IVCON - IV CONTRAST (RADIOLOGY PROCEDURE) 5. Neck pain on left side - ICD9: 723.1, ICD10: M54.[address] neck soft tissue, concerns for supraclavicular mass on left with pain present, no knowninjuries. Has fatigue, no other new symptoms. - CT NECK SOFT TISSUE W IVCON - IV CONTRAST (RADIOLOGY PROCEDURE) - XR SHOULDER ORTHO 4V AP/TRUE AP/LAT/OUTLET LEFT - XR CERV OTHER 4V AP/LAT/OBL - METHOCARBAMOL 500 MG TABLET - PREDNISONE 10 MG TABLET - GABAPENTIN 100 MG CAPSULE - CONSULT TO PHYSICAL THERAPY 6. Acute pain of left shoulder - ICD9: 719.41, ICD10: M25.[address] neck soft tissue, concerns for supraclavicular mass on left with pain present, no knowninjuries. Has fatigue, no other new symptoms. Xray of shoulder and neck need to be completed, start on prednisone and prn muscle relaxant and gabapentin for pain. Consider PHYSICAL THERAPY and f/u with pain mgmt or orthopedics if not improving as d/w her today - XR SHOULDER ORTHO 4V AP/TRUE AP/LAT/OUTLET LEFT - METHOCARBAMOL 500 MG TABLET - PREDNISONE 10 MG TABLET - GABAPENTIN 100 MG CAPSULE - CONSULT TO PHYSICAL THERAPY 7. Left hand paresthesia - ICD9: 782.0, ICD10: R20.[address] neck soft tissue, concerns for supraclavicular mass on left with pain present, no knowninjuries. Has fatigue, no other new symptoms. Xray of shoulder and neck need to be completed, start on prednisone and prn muscle relaxant and gabapentin for pain. Consider PHYSICAL THERAPY and f/u with pain mgmt or orthopedics if not improving as d/w her today - METHOCARBAMOL 500 MG TABLET - PREDNISONE 10 MG TABLET - GABAPENTIN 100 MG CAPSULE - CONSULT TO PHYSICAL THERAPY 8. Chronic kidney disease, stage 3a (HCC) - ICD9: 585.3, ICD10: N18.31 stable 9. IFG (impaired fasting glucose) - ICD9: 790.21, ICD10: R73.01 Stable, reviewed labs with patient - HGB A1C 10. Hyperlipidemia, mixed - ICD9: 272.2, ICD10: E78.2 - Controlled - Continue current medications - Counseled on healthy diet and regular exercise - Discussed need for and benefit of weight loss. BMI 35.54 kg/(m^2) - COMP METABOLIC PANEL - CBC - LIPID PANEL BASIC 11. Vitamin D deficiency - ICD9: 268.9, ICD10: E55.9 Increase dose of supplement as d/w her today - VITAMIN D 25 HYDROXY 12. Vitamin B12 deficiency - ICD9: 266.2, ICD10: E53.8 Start rx for supplement. - VITAMIN B12 BLOOD Pete Morejon DO Return if no improvement. Follow up with Pete Morejon DO. To ER if develops chest pain, shortness of breath. Discussed risks, benefits, alternatives, and potential side effects of medications. Patient/Guardian expressed understanding and agreed with the plan. See patient instructions. Pete Morejon DO [address] [place] [address] documented in this encounterC[facility]11-03-2023 History of Present illness Narrative* Kathrine Davis, RT(R) - 05/26/2023 12:50 PM EDT Radiology Service Progress Note PATIENT NAME: Mary Reyes DATE OF SERVICE: May 26, 2023 TIME: 2:06 PM PATIENT IDENTITY VERIFICATION COMPLETED USING TWO (2) IDENTIFIERS: Name and Date of confirmedby patient verbally. FALL SCREENING: Has the patient had 2 falls in the last year or 1 fall with injury or currently using an Ambulatory Assistive Device (Walker, Cane, Wheelchair, Crutches, etc.)? No PATIENT GENDER DATA: Female. status: : No status: NO. PATIENT RELEVANT IMPLANT DATA REVIEWED: Yes RADIOLOGY DEPARTMENT: General X-ray: Exam(s) Completed: Spine X-Ray(s): Cervical AP / LAT / OBL Upper Extremity X-Ray(s): Shoulder, AP / TRUE AP / AXILLARY left PERIPHERAL IV DATA: Not applicable SIGNED BY: RT Jack(R) May 26, 2023 2:06 PM documented in this encounterCleveland Clinic [facility]10-26-2023 Miscellaneous Notes* Telephone Encounter - Blanca Flood RN - 05/18/2023 8:40 AM EDT TC patient, left message to patient that fasting labs have been ordered. Blanca Flood RN * Telephone Encounter - Pete Morejon DO - 05/17/2023 10:17 PM EDT Please call patient and let her know that fasting labs are now ordered Pete Morejon DO * Telephone Encounter - Isabella Hartmann LPN - 05/16/2023 4:31 PM EDT MyChart message: I have an appointment on May.26 and usually have blood work before hand, including A1C. Do you want any done this time? Thanks, Alma Reyes documented in this encounterCleveland Clinic [facility]10-24-2023 Miscellaneous Notes* Telephone Encounter - Isabella Hartmann LPN - 05/16/2023 4:31 PM EDT Telephone encounter created and forwarded on to Dr. Morejon documented in this encounterCleveland Clinic [facility]07-17-2023 History of Present illness Narrative* Nimco Gardiner MA - 02/06/2023 9:56 AM EDT POPULATION HEALTH NAVIGATION OUTREACH Action/FYI LVM MYCHART MESSAGE SENT Annual medicare wellness ADVANCE DIRECTIVE DISCUSSION Patient Identified by Name and : NO Outreach Outcome/Action Unable to reach patient: Left message MyChart message sent Did you use a PCP flex slot to schedule this appointment? N/A Reason for Outreach Care Gap or Scheduling/Wellness visits Payer: Payor: MEDICARE / Plan: MEDICARE A AND B / Product Type: Medicare / Care Gap Reviewed:: Annual Wellness visit Reminder: Reminder note to check Health Maintenance for items below Health Maintenance items due: COVID-19 VACCINE(5 - Moderna series) due on 04/07/2022 DTAP,TDAP,TD(2 - Td or Tdap) due on 04/12/2022 ADVANCE DIRECTIVE DISCUSSION Never done DEPRESSION ASSESSMENT Never done Navigation Signature: Nimco Gardiner MA February 06, 2023 9:56 AM documented in this encounterCleveland Clinic [facility]06-05-2023 History of Present illness Narrative* Nimco Gardiner MA - 12/26/2022 8:56 AM EDT POPULATION HEALTH NAVIGATION OUTREACH Action/FYI LVM MYCHART MESSAGE SENT ANNUAL MEDICARE WELLNESS ADVANCE DIRECTIVE DISCUSSION Patient Identified by Name and : NO Outreach Outcome/Action Unable to reach patient: Left message MyChart message sent Did you use a PCP flex slot to schedule this appointment? No Reason for Outreach Care Gap or Scheduling/Wellness visits Payer: Payor: MEDICARE / Plan: MEDICARE A AND B / Product Type: Medicare / Care Gap Reviewed:: Annual Wellness visit Reminder: Reminder note to check Health Maintenance for items below Health Maintenance items due: COVID-19 VACCINE(5 - Booster for Moderna series) due on 04/07/2022 DTAP,TDAP,TD(2 - Td or Tdap) due on 04/12/2022 ADVANCE DIRECTIVE DISCUSSION Never done DEPRESSION ASSESSMENT Never done Navigation Signature: Nimco Gardiner MA December 26, 2022 8:56 AM documented in this encounterC[facility] Miscellaneous Notes* Telephone Encounter - Zulma Gonzalez LPN - 09/21/2022 9:03 AM EST Patient phones requesting refills as follows: Requested Prescriptions Pending Prescriptions Disp Refills metoprolol succinate ER (TOPROL XL) 50 mg 24 hr tablet 90 tablet 3 Sig: Take 1 tablet by mouth once daily. DAKSHA-07/21/22 Labs-05/10/22 NOV-none med filled 09/06/21 Please review and advise. Zulma Gonzalez LPN documented in this encounterC[facility]12-29-2022 Instructions* Patient Instructions* Luna Holden APRN.WOLF HUNTER - 07/21/2022 1:34 PM EST FACT SHEET FOR PATIENTS, PARENTS, AND CAREGIVERS EMERGENCY USE AUTHORIZATION (EUA) OF PAXLOVID FOR CORONAVIRUS DISEASE 2019 (COVID-19) You are being given this Fact Sheet because your healthcare provider believes it is necessary to provide you with PAXLOVID for the treatment of hcii-jx-spfjhjgv coronavirus disease (COVID-19) caused by the SARS-CoV-2 virus. This Fact Sheet contains information to help you understand the risks and benefits of taking the PAXLOVID you have received or may receive. The U.S. Food and Drug Administration (FDA) has issued an Emergency Use Authorization (EUA) to makePAXLOVID available during the COVID-19 pandemic (for more details about an EUA please see What is an Emergency Use Authorization? at the end of this document). PAXLOVID is not an FDA-approved medicine in the [place]. Read this Fact Sheet for information about PAXLOVID. Talk to your healthcareprovider about your options or if you have any questions. It is your choice to take PAXLOVID. What is COVID-19? COVID-19 is caused by a virus called a coronavirus. You can get COVID-19 through close contact withanother person who has the virus. COVID-19 illnesses have ranged from very atcp-ol-husfrp, including illness resulting in . While information so far suggests that most COVID-19 illness is mild, serious illness can happen and maycause some of your other medical conditions to become worse. Older people and people of all ages with severe, long lasting (chronic) medical conditions like heart disease, lung disease, and diabetes,for example seem to be at higher risk of being hospitalized for COVID-19. What is PAXLOVID? PAXLOVID is an investigational medicine used to treat ivug-cd-qrzektva COVID-19 in adults and children [12 years of age and older weighing at least 88 pounds (40 kg)] with positive results of direct SARS-CoV-2 viral testing, and who are at high risk for progression to severe COVID-19, including hospitalization or . PAXLOVID is investigational because it is still being studied. There is limited information about the safety and effectiveness of using PAXLOVID to treat people with konz-vt-rcghobfs COVID-19. The FDA has authorized the emergency use of PAXLOVID for the treatment of kryh-kr-hpmrojbf COVID-19in adults and children [12 years of age and older weighing at least 88 pounds (40 kg)] with a positive test for the virus that causes COVID-19, and who are at high risk for progression to severe COVID-19, including hospitalization or , under an EUA. 1 Revised: 08 October 2021 What should I tell my healthcare provider before I take PAXLOVID? Tell your healthcare provider if you: Have any allergies Have liver or kidney disease Are or plan to become Are a child Have any serious illnesses Tell your healthcare provider about all the medicines you take, including prescription and rodk-gmq-hwczsoc medicines, vitamins, and herbal supplements. Some medicines may interact with PAXLOVID and may cause serious side effects. Keep a list of your medicines to show your healthcare provider and pharmacist when you get a new medicine. You can ask your healthcare provider or pharmacist for a list of medicines that interact with PAXLOVID. Do not start taking a new medicine without telling your healthcare provider. Your healthcare provider can tell you if it is safe to take PAXLOVID with other medicines. Tell your healthcare provider if you are taking combined hormonal contraceptive. PAXLOVID may affect how your control pills work. Females who are able to become should use another effective alternative form of contraception or an additional barrier method of contraception. Talk to your healthcare provider if you have any questions about contraceptive methods thatmight be right for you. How do I take PAXLOVID? PAXLOVID consists of 2 medicines: nirmatrelvir and ritonavir. Take 2 pink tablets of nirmatrelvir with 1 white tablet of ritonavir by mouth 2 times each day (in the morning and in the evening) for 5 days. For each dose, take all 3 tablets at the same time. If you have kidney disease, talk to your healthcare provider. You may need a different dose. Swallow the tablets whole. Do not chew, break, or crush the tablets. Take PAXLOVID with or without food. Do not stop taking PAXLOVID without talking to your healthcare provider, even if you feel better. If you miss a dose of PAXLOVID within 8 hours of the time it is usually taken, take it as soon as you remember. If you miss a dose by more than 8 hours, skip the missed dose and take the next dose atyour regular time. Do not take 2 doses of PAXLOVID at the same time. If you take too much PAXLOVID, call your healthcare provider or go to the nearest hospital emergency room right away. If you are taking a ritonavir-or cobicistat-containing medicine to treat hepatitis C or Human Immunodeficiency Virus (HIV), you should continue to take your medicine as prescribed by your healthcare provider. Talk to your healthcare provider if you do not feel better or if you feel worse after 5 days. Who should generally not take PAXLOVID? Do not take PAXLOVID if: You are allergic to nirmatrelvir, ritonavir, or any of the ingredients in PAXLOVID You are taking any of the following medicines: Alfuzosin Pethidine, propoxyphene Ranolazine Amiodarone, dronedarone, flecainide, propafenone, quinidine Colchicine Lurasidone, pimozide, clozapine Dihydroergotamine, ergotamine, methylergonovine Lovastatin, simvastatin Sildenafil (Revatio ) for pulmonary arterial hypertension (PAH) Triazolam, oral midazolam Apalutamide Carbamazepine, phenobarbital, phenytoin Rifampin [place] s Wort (hypericum perforatum) Taking PAXLOVID with these medicines may cause serious or life-threatening side effects or affect how PAXLOVID works. These are not the only medicines that may cause serious side effects if taken with PAXLOVID. PAXLOVID may increase or decrease the levels of multiple other medicines. It is very important to tell your healthcare provider about all of the medicines you are taking because additional laboratory tests or changes in the dose of your other medicines may be necessary while you are taking PAXLOVID. Your healthcare provider may also tell you about specific symptoms to watch out for that may indicate that you need to stop or decrease the dose of some of your other medicines. What are the important possible side effects of PAXLOVID? Possible side effects of PAXLOVID are: Allergic Reactions. Allergic reactions can happen in people taking PAXLOVID, even after only 1 dose. Stop taking PAXLOVID and call your healthcare provider right away if you get any of the following symptoms of an allergic reaction: hives trouble swallowing or breathing swelling of the mouth, lips, or face throat tightness hoarseness skin rash Liver Problems. Tell your healthcare provider right away if you have any of these signs and symptoms of liver problems: loss of appetite, yellowing of your skin and the whites of eyes (jaundice), dark-colored urine, pale colored stools and itchy skin, stomach area (abdominal) pain. Resistance to HIV Medicines. If you have untreated HIV infection, PAXLOVID may lead to some HIV medicines not working as well in the future. Other possible side effects include: altered sense of taste diarrhea high blood pressure muscle aches These are not all the possible side effects of PAXLOVID. Not many people have taken PAXLOVID. Serious and unexpected side effects may happen. PAXLOVID is still being studied, so it is possible that all of the risks are not known at this time. What other treatment choices are there? Veklury (remdesivir) is FDA-approved for the treatment of hiin-ze-wqglfwtl COVID-19 in certain adults and children. Talk with your doctor to see if Veklury is appropriate for you. Like PAXLOVID, FDA may also allow for the emergency use of other medicines to treat people with COVID-19. Go to https://www.fda.gov/sssqkwggo-dxpwikiqxahv-vsorejndccv/ywi-xllkw-ruowywvhfz-and- policy-framework/oftrjkrqz-izg-knvqlidlxtglm for information on the emergency use of other medicines that are authorized by FDA to treat people with COVID-19. Your healthcare provider may talk with you aboutclinical trials for which you may be eligible. It is your choice to be treated or not to be treated with PAXLOVID. Should you decide not to receive it or for your child not to receive it, it will not change your standard medical care. What if I am or ? There is technologist development treating women or mothers with PAXLOVID. For a motherand unborn baby, the benefit of taking PAXLOVID may be greater than the risk from the treatment. Ifyou are , discuss your options and specific situation with your healthcare provider. It is recommended that you use effective barrier contraception or do not have sexual activity whiletaking PAXLOVID. If you are , discuss your options and specific situation with your healthcare provider. How do I report side effects with PAXLOVID? Contact your healthcare provider if you have any side effects that bother you or do not go away. Report side effects to FDA MedWatch at www.fda.gov/medwatch or call 5-977-GEJ3408 or you can reportside effects to [employer] at the contact information provided below. Website Fax number Telephone number wwwAlai How should I store PAXLOVID? Store PAXLOVID tablets at room temperature, between 68?F to 77?F (20?C to 25?C). How can I learn more about COVID-19? Ask your healthcare provider. Visit https://www.cdc.gov/COVID19. Contact your local or state public health department. What is an Emergency Use Authorization (EUA)? The [place] FDA has made PAXLOVID available under an emergency access mechanism called an Emergency Use Authorization (EUA). The EUA is supported by a Permanent Waver of Health and Human Service (HHS) declaration that circumstances exist to justify the emergency use of drugs and biological productsduring the COVID-19 pandemic. PAXLOVID for the treatment of sxhn-jc-raqklfpr COVID-19 in adults and children [12 years of age andolder weighing at least 88 pounds (40 kg)] with positive results of direct SARS-CoV-2 viral testing, and who are at high risk for progression to severe COVID-19, including hospitalization or , has not undergone the same type of review as an FDA-approved product. In issuing an EUA under the COVID-19 public health emergency, the FDA has determined, among other things, that based on the total amount of scientific evidence available including data from adequate and well-controlled clinical trials, if available, it is reasonable to believe that the product may be effective for diagnosing, treating, or preventing COVID-19, or a serious or life-threatening disease or condition caused by COVID-19; that the known and potential benefits of the product, when used to diagnose, treat, or prevent such disease or condition, outweigh the known and potential risks of such product; and that there are no adequate, approved, and available alternatives. All of these criteria must be met to allow for the product to be used in the treatment of patients during the COVID-19 pandemic. The EUA for PAXLOVID is in effect for the duration of the COVID-19 declaration justifying emergency use of this product, unless terminated or revoked (after which the products may no longer be used under the EUA). Additional Information For general questions, visit the website or call the telephone number provided below. Website Telephone number www.[email or web address] (7-768-B85-ZSUI) You can also go to www.[employer] or call for more information. Pfizer Distributed by [employer] [place] [place] [address] [id number] Revised: 08 October 2021 documented in this encounterC[facility]12-29-[facility]22 History of Present illness Narrative* Luna Holden, MELISSA.WOLF HUNTER - 07/21/2022 1:20 PM EST This Team Access Model visit is a virtual encounter. It required patient- provider interaction for the medical decision making as documented below. Patient agrees to the visit: Yes Patient Location: [place] CC: Patient presents with: Covid19 Concern HPI Mary Reyes is a 71 year old female who is contacted today for a virtual visit. This is an established patient of Dr. Pete Morejon DO. Mary is a new patient to me today. Concerns today.. COVID concern ---- COVID + this morning from at home COVID test. also COVID+. Started with symptoms of hoarse voice, sore throat, and generalized fatigue yesterday. Very mild, non-productive cough. Denies any CP, SOB, or dizziness. Just reports heavy chest congestion. Has not taken at OTC medications for thisso far. Is interested in paxlovid. Saw visible COVID + test on virtual call. REVIEW OF SYSTEMS See HPI PAST MEDICAL HISTORY Diagnosis Date Arthritis left knee, back Complication of anesthesia N/V DDD (degenerative disc disease), lumbar Diulus, Cole Diverticulosis of colon (without mention of hemorrhage) 05/27 Diverticulosis Head injury 1971 left hand numbness, decrease coordination on right (dominant) IFG (impaired fasting glucose) 03/2017 a1c 5.8% Insomnia, unspecified improved Mild atherosclerosis of carotid artery 2016 internal, 0-19% Papanicolaou smear of cervix with atypical squamous cells of undetermined significance (ASC-US) 2009 ASCUS HPV negative, Dr Whiteside Snoring Tremor left hand Unspecified essential hypertension borderline PAST SURGICAL HISTORY Procedure Laterality Date ARTHROSCOPY KNEE DIAGNOSTIC W/WO SYNOVIAL BX SPX 03/25/2003 Arthroscopy, knee LEFT ARTHRP ACETBLR/PROX FEM PROSTC AGRFT/ALGRFT Left 03/27/[address] Mederos, [facility] ARTHRP KNE CONDYLE&PLATU MEDIAL&LAT COMPARTMENTS 10/04/10 Knee replacement, total Knee ARTHRP KNE CONDYLE&PLATU MEDIAL&LAT COMPARTMENTS Right 10/01/2018 Dr. Mata, [facility] COLONOSCOPY FLX DX W/COLLJ SPEC WHEN PFRMD 06/02/04 Repeat in COLONOSCOPY FLX DX W/COLLJ SPEC WHEN PFRMD 06/23/14 no polyps EYE SURGERY HX 06/27/14 left laeral rectus recession-strabismus F SI JOINT INJECTION 02/02/12 LIG/TRNSXJ FLP TUBE ABDL/VAG APPR UNI/BI 1982 Tubal ligation NEUROPLASTY &/TRANSPOS MEDIAN NRV CARPAL TUNNE 09/2000 Carpal tunnel decomp LEFT PAST SURGICAL HISTORY OF 1988 LEFT EYE, strabismus repair after injury PAST SURGICAL HISTORY OF 1970 skull fracture (ice skating) ALLERGIES Vicodin [Hydrocodone-Acetaminophen] and Vioxx [Rofecoxib] MEDICATIONS triamcinolone acetonide topical 0.5 % ointment Use 1-3 times weekly for maintenance therapy metoprolol succinate ER (TOPROL XL) 50 mg 24 hr tablet Take 1 tablet by mouth once daily. meloxicam (MOBIC) 7.5 mg tablet Take 1 tablet by mouth twice daily. (Patient taking differently: Take 7.5 mg by mouth as needed for pain. ) metroNIDAZOLE (METROGEL) 0.75 % Topical Gel Apply to affected area twice daily. acetaminophen (TYLENOL EXTRA STRENGTH) 500 mg tablet Take 1,000 mg by mouth every 8 hours as needed. aspirin, enteric coated (ASPIRIN, ENTERIC COATED) 81 mg EC tablet Take 81 mg by mouth once daily. FAMILY HISTORY Problem Relation Age of Onset Heart Mother atrial fibrilation/diverticulitis/osteoporosis Stroke Father Breast Cancer Maternal Grandmother Stroke Maternal Grandmother Stroke Paternal Grandfather Heart Brother Social History Tobacco Use Smoking status: Never Smokeless tobacco: Never Vaping Use Vaping Use: Never used Substance Use Topics Alcohol use: Yes Comment: 6 per year Drug use: No EXAM: Deferred physical exam as visit was completed over the phone Patient is speaking in complete sentences without obvious respiratory distress or audible wheezing. Virtual visit completed using video, limited exam completed. GENERAL: alert and appropriate, in no distress, well-hydrated, well nourished, and happy, smiling, interactive SKIN: no rash noted HEAD: normocephalic, no abnormality or lesion noted DATA REVIEWED: Most recent labs and imaging results. ADVANCE DIRECTIVE DISCUSSION Never done DEPRESSION ASSESSMENT Never done COVID-19 VACCINE(5 - Booster for Moderna series) due on 04/07/2022 DTAP,TDAP,TD(2 - Td or Tdap) due on 04/12/2022 ANNUAL PCP TEAM CHRONIC DISEASE VISIT due on 03/30/2023 BP CONTROLLED (<130/80) due on 03/30/2023 MAMMOGRAM due on 05/17/2023 COLORECTAL CANCER SCREENING due on 06/23/2024 DIABETES SCREEN due on 05/09/2025 LIPID SCREEN due on 05/09/2027 BONE DENSITY Completed INFLUENZA Completed HEPATITIS C SCREENING Completed SHINGRIX VACCINE Completed PNEUMOCOCCAL: 65+ Completed ASSESSMENT/PLAN: 1. COVID-19 - ICD9: 079.89, ICD10: U07.1 Discussed CDC guidelines for quarantine. Rest and increase fluids. Tylenol as needed for body aches. Paxlovid BID x 5 days. Discussed side effects. Discussed red flag symptoms and when to seek immediate medical attention. - NIRMATRELVIR 300 MG (150 MG X2)-RITONAVIR 100 MG TABLET,DOSE PACK(EUA) Follow-up if symptoms do not improve. Prescription instructions reviewed with patient as applicable. Potential red flag symptoms discussed with the patient. Reviewed appropriate action plan to take if red flag symptoms occur. Patient agreeable to treatment plan. During this patient visit I have spent approximately 20 minutes in counseling regarding treatment options, medications, and test results. Luna Holden APRN.JOYCE Nirmatrelvir/Ritonavir (Paxlovid) Eligibility and Patient Discussion [facility] Formulary Restriction Criteria: Adult outpatients 18 years and older with ALL of the following: [x] Patient has positive SARS-COV-2 viral test (PCR or antigen test) during current illness [x] Patient has symptoms for 5 days or less [x] Not requiring hospitalization at any time for management of COVID-19 [x] Not requiring supplemental oxygen or a change in baseline supplemental oxygen [x] Not utilized for pre-exposure or post-exposure prophylaxis for prevention of COVID-19 [x] Patient does not have severe renal impairment (eGFR < 30 mL/min) or severe hepatic impairment (Child-Carbajal Class C) [x] Meeting at least one of the criteria for high risk of progression to severe COVID-19: [x] Age over 65 years [] Cancer [] Chronic kidney disease [] Chronic liver disease [] Chronic lung diseases, including cystic fibrosis [] Dementia or other neurological conditions [] Diabetes (type 1 or type 2) [] Disabilities, including Down syndrome and neurodevelopmental disorders [] Heart conditions [] HIV infection [] Immunocompromised state [] Mental health conditions [] Medical related technological dependence (tracheostomy, gastrostomy, or positive pressure ventilation (not related to COVID) [] Overweight and obesity (BMI greater or equal to 25 for adults) [] Physical inactivity [] [] Sickle cell disease or thalassemia [] Smoking, current or former [] Solid organ or blood stem cell transplant [] Stroke or cerebrovascular disease [] Substance use disorders [] Tuberculosis [] People from racial and ethnic minority groups Criteria above are met: Yes Date of Positive Test:07/21/22 Date of Symptom Onset: 07/20/22 Patient received COVID vaccine: Yes Drug-Drug interactions reviewed: Yes. No drug interactions were identified. I have discussed the use of the investigational therapeutic, nirmatrelvir/ritonavir, for the treatment of mild to moderate COVID-19 and its use under Emergency Use Authorization with the patient. The patient was informed that nirmatrelvir/ritonavir is not an FDA approved drug and that it is authorized for use under this Emergency Use Authorization. The patient was also informed of the significant known benefits and potential risks of nirmatrelvir/ritonavir, and the extent to which such potential risks and benefits are unknown. The patient was informed that there is mandatory reporting of all medication errors and serious adverse events potentially related to nirmatrelvir/ritonavir treatment within 7 calendar days from the onset of the event and that events up to 28 days after completion of therapy need to be reported. The discussion included alternatives to receiving nirmatrelvir/rit onavir, including clinical trials, and potential the risks and benefits of those alternatives. The patient was provided electronically with the Fact Sheet for Patients, Parents and Caregivers. The patient was also instructed that in addition to the treatment with nirmatrelvir/ritonavir, he/she should continue to self-isolate and use infection control measures (e.g., wear mask, isolate, social distance, avoid sharing personal items, clean and disinfect high touch surfaces, and frequent h andwashing) according to CDC guidelines. The patient stated understanding and gave verbal consent to proceeding with nirmatrelvir/ritonavir treatment. Luna Holden APRN.WOLF HUNTER July 21, 2022 1:36 PM documented in this encounterC[facility]10-25-[facility] History of Present illness Narrative* Ned Dodd RT(R) - 05/17/2022 3:00 PM EDT Radiology Service Progress Note PATIENT NAME: Mary Reyes DATE OF SERVICE: May 17, 2022 TIME: 2:57 PM PATIENT IDENTITY VERIFICATION COMPLETED USING TWO (2) IDENTIFIERS: Name and Date of confirmedby patient verbally. FALL SCREENING: Has the patient had 2 falls in the last year or 1 fall with injury or currently using an Ambulatory Assistive Device (Walker, Cane, Wheelchair, Crutches, etc.)? No PATIENT GENDER DATA: Female. status: : No status: NO. PATIENT RELEVANT IMPLANT DATA REVIEWED: Not Applicable RADIOLOGY DEPARTMENT: Bone Density PERIPHERAL IV DATA: Not applicable SIGNED BY: RT Marcus(R) May 17, 2022 2:57 PM documented in this encounterCleveland [facility]10-25-2022 Miscellaneous Notes* Letter - Mammography Coordinator - 05/17/2022 1:40 PM EDT May 18, 2022 PID: [id number] Mary [address] [id number] [place] [address] Dear Ghulam Reyes, We are pleased to inform you that the results of your recent breast imaging exam on 05/17/2022 are normal. Early detection of cancer is very important. We also understand recommendations regarding breast cancer screening are controversial. Please discuss with your primary care provider which strategy is best for you and whether a mammogram is right for you. Your imaging studies and report will be kept on file at [facility] as part of your permanent medical record and are available for your continuing care. Thank you for allowing us to help in meeting your health care needs. Sincerely, Dr. Rodriguez Interpreting Radiologist [facility] (Normal over 40) documented in this encounterCleveland Clinic [facility]10-17-2022 Miscellaneous Notes* Telephone Encounter - Gabi Ramos LPN - 05/09/2022 7:20 PM EDT Left a detailed message with information listed below. Gabi Ramos LPN * Telephone Encounter - Pete Morejon DO - 05/09/2022 5:22 PM EDT Yes, please inform patient that urinalysis/urine culture is ordered for her to complete at lab Pete Morejon DO * Telephone Encounter - Gabi Ramos LPN - 05/09/2022 10:41 AM EDT Pt calls and states the following: URINARY SYMPTOMS. Had sent in a Netas[employer] message yesterday 05-08-22. Turned the message into phone encounter. SYMPTOMS: burning with urination and uncomfortable, frequency ONSET: symptoms started on Monday05-06-22 PAIN: pain scale 1 or 2 (discomfort) CAUSE: unknown OTHER SYMPTOMS: spotting last week and this is being taken care of by [facility] doctor and she will be having an US done today DENIES: fever, flank pain, incontinence. Pt requesting a urine lab test done. Please advise pt. Okay to leave a detailed message on phone. Pharmacy updated. Gabi Ramos LPN [facility] History of Present illness Narrative* Pete Morejon DO - 03/30/2022 12:26 PM EDT Mary Reyes is a 71 year old female here for a Medicare Subsequent Annual Wellness Visit Health Risk Assessment In general, health is: Very good IFG, diet controlled, knows needs to work on more routine exercise Hypoalbuminemia, admits isn't consistent with high protein intake Concerns with tiredness, difficulties with sexual function, balance, teeth/dentures: Not at all [place] anxious, stressed, angry, irritable, lonely, isolated, or had thoughts of hurting themself: Not at all Eats healthy foods including fruits, vegetables, whole grains, and fiber-rich foods: Nearly every day Has little interest or pleasure in doing things: Not at all Bothered by feeling down, depressed, or hopeless: Not at all Needs help with grocery shopping, cooking, housework, bathing, grooming, dressing, eating, sitting or standing, walking, using the toilet, handling finances, taking medications, using the telephone, or driving: No Following safety precautions in the home environment and vehicle: removed throw rugs from floors, installed grab bars in the bathroom, handrails in stairwells, having adequate lighting, wearing seatbelt at all times?: No Smokes cigarettes, vapes, or chew tobacco: No Number of days per week engages in exercise: 1 day Average alcohol consumption: Monthly or less Current Providers Patient Care Team: Pete Morejon DO as PCP - General (Family Practice) Specialists: I have reviewed specialist-related care of the patient in the medical record. Medical/Family history review Reviewed and updated problem list, medical history, surgical history, family history, social history, medication list, and allergies. Opioid use review Patient is not currently using opioids. Depression screening Depression Screening 10/26/2017 09/24/2018 09/08/2020 03/30/2022 PHQ-2 Score 0 0 0 0 PHQ-9 Score 2 1 - - JACQUES-2 Total Score - - - - Depression screening tool completed and reviewed. Based on score and interview, patient is not at risk for depression. Screening tool discussed with patient, and I recommended no further interventionat this time. Cognitive screening Mini-cog score: No C3B results Cognitive screening reviewed and no further action needed (score 3-5) Functional Observation Was the patient's timed Up & Go test unsteady or longer than 30 seconds? No Advance Care Planning End of Life planning discussed, including patient's advanced directive wishes: Yes Measurements BP 110/70 Pulse 64 Temp (Src) 97.5 (Left Tympanic) Resp 16 Wt 252 lb (114.3kg) Visual acuity: follows with optometry/ophthalmology Hearing Evaluation: within normal limits Assessment/Plan - Counseled on healthy diet and regular exercise - Fall avoidance documented in this encounterC[facility] Instructions* Patient Instructions* Misael Todd - 11/02/2021 1:50 PM EDT Images from the original note were not included. What is Plantar Fasciitis? Plantar fasciitis is the most common cause of heel pain. The pain is caused by inflammation of the plantar fascia. If you strain your plantar fascia, it becomes weak, swollen and irritated (inflamed). The resulting pain may be isolated in the heel or may appear at different points on the bottom of the foot, from time to time; it may occur in one foot or both. Some think that plantar fasciitis pain is caused by irritation of nerves from tissue swelling or inflammation, but it is debatable. Plantar fasciitis is common in middle-aged people; it also occurs in younger people who are on their feeta lot, such as athletes or soldiers. The plantar fascia is a strong band of connective tissue that extends from the base of the toes, along the bottom of the foot, to the bottom of the heel (calcaneous bone); it acts like a bowstring tomaintain the arch of the foot. What are heel spurs? The inflammatory reaction of the heel bone may produce spike-like projections of new bone, called heel spurs. The spurs sometimes show on X-rays. They neither cause the initial pain nor do they causethe initial problem. However, later, having to walk on spurs may cause sharp pain. What causes plantar fasciitis? Plantar fasciitis is caused by straining the ligament that supports your arch. Repeated strain can cause tiny tears in the ligament. These lead to pain and swelling. During walking, the plantar fascia experiences tension up to twice the body weight with each step. While this is normal, those who spend much time on their feet, such as nurses, vocational rehabilitation specialist/waiters, andmail carriers, often experience plantar fasciitis. Athletes involved in tennis or other racquet sports, race walking, jogging or running also show a higher incidence of plantar fasciitis than do those participating in other activities. Thus, it's clear that plantar fasciitis is predominantly an overuse injury. In fact, any activity that results in prolonged tension and stress on the plantar fascia may cause plantar fasciitis. It is possible that changes in footwear may play a role in causing plantar fasciitis, no matter what activity is occurring. Those who are overweight are prone to plantarfasciitis. This is true even for sedentary people who get little physical activity. Abnormalities of the foot and ankle joints may predispose some individuals to development of plantar fasciitis (spec ifically, over pronation of the subtalar joint). Contributing Factors * Flat feet * Toe running, hill running * Sudden weight increase * High-arched, rigid feet * Soft terrain, e.g. running on sand * Obesity * Pronated feet (rolled inward) * Sudden increase in activity* Family tendency * Poor shoe support * Worn out or poorly fitted shoes * Increasing age * Walking,standing or running for long periods of time, especially on hard surfaces. How is the Injury Treated? Rest Your Feet: Limit, or if possible, stop activities that are causing your heel pain. Try to avoid running or walking on hard surfaces, such as concrete. Use pain as your guide. If your foot is toopainful, rest it. Ice: Ice the sore area for 30 to 60 minutes, several times a day, to reduce inflammation and relieve pain. Apply a plastic bag of crushed ice (or a bag of frozen peas) over a towel. Ice the sore areafor 15 minutes after activity/exercise. Application of heat is not generally recommended, as heat ex pands the bone and connective tissue, perhaps exerting greater pressure on nerves and thereby increasing pain. If heat is used, follow it with ice. Medication: If your condition developed recently, anti-inflammatory/analgesic medication, combined with heel pads (see below) may be all that is necessary to relieve pain and to reduce inflammation. If no pain relief has occurred after 2- 3 weeks, however, your doctor may inject either cortisone or local anesthetic directly into the tender area. Exercises: Do simple exercises, such as calf stretches and towel stretches (see below) several times a day, especially when you first get up in the morning. These can help your ligament become more flexible and strengthen the muscles that support your arch. Shoes: Poorly fitting shoes can cause plantar fasciitis. The best type of shoe to wear is a good walking or running shoe with good shock absorption and excellent arch support. You should choose the one that fits the best. [place] with your athletic shoes to find a pair that is comfortable and causes fewer symptoms. Put your shoes on as soon as you get out of bed; going barefoot or wearing slippers may make your pain worse. Good brands include (but are not limited to): New Balance, Asics, Saucony, SAS and Merrel s. Taping: Your doctor may tape your foot to maintain the arch. This takes some of the tension off theplantar fascia. Weight Loss: If your weight is putting extra stress on your feet, your doctor may encourage you to try a weight-loss program. Orthotics: An orthotic insole is a molded piece of rubber, plastic, or other material that you insert into your shoe. It corrects the alignment of your foot and cushions your foot from excessive pounding. These may be prescription or non-prescription. Prescription orthotics are custom-fitted and may fit better and control pain better, but are very expensive. Night Splints: A night splint holds the foot with the toes pointed up and the ankle at a 90-degree angle. This position applies a constant, gentle stretch to the plantar fascia. Corticosteroid Shots: Steroids may be injected into the tender area to reduce inflammation. REHAB Exercises to stretch the plantar fascia, the calf muscles, and the Achilles tendon. Tightness of the muscles of the calves may contribute to plantar fasciitis, so stretching the calf muscles is important to rehabilitation, as is stretching of the plantar fascia itself. Plantar fascial stretches Assisted Dorsiflexion/Plantar Fascia Stretch: Sit on the floor or ground, barefoot, with both legs outstretched. Use a towel or elastic band and wrap it around the ball (and not the toes) of the affected foot. Use the towel or elastic band to provide resistance to upward movement of the forefoot. Pull foot upward (toward your body) with the help of the elastic band or towel, and then return to the starting position. Ten repetitions are recommended. Perform the sequence at least three times a day. Alternate Plantar Fascia Stretch: Sit upright in a chair, barefoot. Place the ankle of the affectedfoot on your opposite knee. Using the same hand as the affected foot, reach across and grab the toes. Flex the ankle toward and pull the toes toward the cole. To test the stretch, place the thumb of your hand on the bottom of the foot. You should be able to feel the cord-like plantar fascia, running the length of the foot. Hold the stretch for a count of 10, then relax. Repeat 10 times. Do the sequence at least three times a day. Achilles/Calf Stretches Strengthening the muscles of the calves may contribute to successful rehabilitation of plantar fasciitis, as well as prevent reoccurrence. The exercises below will help strengthen the calf muscles. Calf and Achilles Tendon Stretch (Gastrocnemius Stretch): Face a wall, standing an arm's length away. Place one foot back. Place both hands on the wall. Bend the elbows and knee of your forward leg, keeping the heel of the backward foot on the floor and keeping your body straight (aligned), until your forehead nearly touches the wall, or until significant stretch is felt in the muscles of the calf of the backward leg. Hold this position for 10 to 15 seconds. Extend elbows (straighten your arms and stand upright again) and maintain this position for 10 seconds. Repeat this cycle 15 to 20 times. Switch legs and repeat the exercise. STEROID INJECTION You have been injected with a corticosteroid and local anesthesia today. This should provide reliefof symptoms for the next 8 hours or so. After this time frame you will likely experience an increase in pain symptoms again until the effects of the steroid start to work, which should occur within 24-48 hours. Approximately 2% of individuals may experience a post injection flare or severe worsening of symptoms following injection. If this occurs ice the area and take Tylenol or Aleve for pain. In some very rare instances skin depigmentation and joint infection may occur. Joint infection is aconcern if you experience any of the following: - pain for more than 48 hours after the injection - pain develops more than 2 days after the injection - the area becomes red, hot or swollen - you develop a fever following the injection Corticosteroid injections can also rarely interfere with the healing process and weaken tendons, sometimes causing tendons to rupture. Repeated injections of steroids can also damage joint cartilage.For these reasons, there are limits to how many times and how frequently corticosteroid injections can be used in the same area. If anything seems unusual or out of the ordinary please contact our office as soon as possible for further instruction. documented in this encounterC[facility]12-[facility] History of Present illness Narrative* Misael Todd - 11/02/2021 1:38 PM EDT Follow up podiatric office visit for: Chief Complaint: This 71 year old who presents for follow up:left heel pain Past treatment for left foot pain: Stretching Icing Inserts nsaids Night splint She continues to have pain. The pain is slightly improved but still present. She states the pain is4-5/10. She is here to discuss injection PAIN EVALUATION 11/02/2021 1322 Pain Level: 5 Pain Location: Heel-Left Description: Aching Duration Amount of Time: 3 Duration Units: Months Frequency: Continuous Intervention/Comfort measure: Medication;Cold;Heat;Exercise Hemoglobin A1C Date Value Ref Range Status 04/19/2021 5.9 (H) 4.3 - 5.6 % Final Comment: [place] [employer] guidelines indicate that patients with HgbA1c in the range 5.7-6.4% are at increased risk for development of diabetes, and intervention by lifestyle modification may be beneficial. HgbA1c greater or equal to 6.5% is considered diagnostic of diabetes. PCP: Pete Morejon DO PAST MEDICAL HISTORY Diagnosis Date Arthritis left knee, back Complication of anesthesia N/V DDD (degenerative disc disease), lumbar Diulus, Cole Diverticulosis of colon (without mention of hemorrhage) 05/27 Diverticulosis Head injury 1971 left hand numbness, decrease coordination on right (dominant) IFG (impaired fasting glucose) 03/2017 a1c 5.8% Insomnia, unspecified improved Mild atherosclerosis of carotid artery 2016 internal, 0-19% Papanicolaou smear of cervix with atypical squamous cells of undetermined significance (ASC-US) 2009 ASCUS HPV negative, Dr Whiteside Snoring Tremor left hand Unspecified essential hypertension borderline Current Outpatient Medications Medication Sig metoprolol succinate ER (TOPROL XL) 50 mg 24 hr tablet Take 1 tablet by mouth once daily. meloxicam (MOBIC) 7.5 mg tablet Take 1 tablet by mouth twice daily. (Patient taking differently: Take 7.5 mg by mouth as needed for pain. ) triamcinolone acetonide topical 0.5 % ointment Use every night to affected area x 4 weeks, then use1-3 x weekly or as needed metroNIDAZOLE (METROGEL) 0.75 % Topical Gel Apply to affected area twice daily. acetaminophen (TYLENOL EXTRA STRENGTH) 500 mg tablet Take 1,000 mg by mouth every 8 hours as needed. aspirin, enteric coated (ASPIRIN, ENTERIC COATED) 81 mg EC tablet Take 81 mg by mouth once daily. Current Facility-Administered Medications Medication Dose Route Frequency perflutren lipid microspheres 1.3 mL in NaCl (PF) 0.9% 10 mL injection (DEFINITY) INTRAVENOUS DIRECTED PRN sodium chloride 0.9 % (flush) 10 mL (BD POSIFLUSH) 10 mL INTRAVENOUS DIRECTED PRN ALLERGIES Allergen Reactions Vicodin [Hydrocodon* Rash Vioxx [Rofecoxib] GI Upset PAST SURGICAL HISTORY Procedure Laterality Date ARTHROSCOPY KNEE DIAGNOSTIC W/WO SYNOVIAL BX SPX 03/25/2003 Arthroscopy, knee LEFT ARTHRP ACETBLR/PROX FEM PROSTC AGRFT/ALGRFT Left 03/27/[address] [facility]eros, [facility] ARTHRP KNE CONDYLE&PLATU MEDIAL&LAT COMPARTMENTS 10/04/10 Knee replacement, total Knee ARTHRP KNE CONDYLE&PLATU MEDIAL&LAT COMPARTMENTS Right 10/01/2018 Dr. Mata, [facility] COLONOSCOPY FLX DX W/COLLJ SPEC WHEN PFRMD 06/02/04 Repeat in COLONOSCOPY FLX DX W/COLLJ SPEC WHEN PFRMD 06/23/14 no polyps EYE SURGERY HX 06/27/14 left laeral rectus recession-strabismus F SI JOINT INJECTION 02/02/12 LIG/TRNSXJ FLP TUBE ABDL/VAG APPR UNI/BI 1982 Tubal ligation NEUROPLASTY &/TRANSPOS MEDIAN NRV CARPAL TUNNE 09/2000 Carpal tunnel decomp LEFT PAST SURGICAL HISTORY OF 1988 LEFT EYE, strabismus repair after injury PAST SURGICAL HISTORY OF 1970 skull fracture (ice skating) Physical Exam: Constitutional: Pt is a well developed 71 year old female who is alert, oriented, cooperative and in no apparent distress. OBJECTIVE: NVSI unchanged from previous visit. Dermatological: Nails 1-5 left are normal. Webspaces clean and dry 1-4 left. Skin appears well hydrated and supple.good color, texture, turgor. No open lesions present. No callosities present. Musculoskeletal/Orthopaedic: Patient has pain to palpation of left plantar medial calcaneal tubercle ASSESSMENT: (M72.2) Plantar fasciitis of left foot (primary encounter diagnosis) PLAN: Discussed chronic heel pain. She has tried stretching, icing, inserts, night splint. She continues to have pain. Discussed steroid injection today. She agrees to proceed with injection. Patient elected to proceed with an injection to the heel today. The risks, benefits, potential complications, personnel present, and alternatives to this were discsussed. Pt elected to proceed. all questions were answered. no guarantees were given. A timeout was performed. patient properly identified. procedure site marked. Under aseptic technique an injection was performed to the heel using a mixture of cc of 0.5 % Marcaine plain, of kenalog and cc of dexamethazone Offered therapy but she elected to hold on therapy. Misael Todd DPM documented in this encounterC[facility] History of Past illness Narrative* Problem Noted Date Resolved Date Postmenopausal bleeding 04/19/2011 04/25/20 12 Cystocele, midline 08/12/2008 04/19/2011 documented as of this encounter (statuses as of 11/02/2021) [facility] of Past illness Narrative* Problem Noted Date Resolved Date Postmenopausal bleeding 04/19/2011 04/25/20 12 Cystocele, midline 08/12/2008 04/19/2011 documented as of this encounter (statuses as of 03/30/2022) [facility] of [facility] illness Narrative* Problem Noted Date Resolved Date Postmenopausal bleeding 04/19/2011 04/25/20 12 Cystocele, midline 08/12/2008 04/19/2011 documented as of this encounter (statuses as of 05/09/2022) [facility] illness Narrative* Problem Noted Date Resolved Date Postmenopausal bleeding 04/19/2011 04/25/20 12 Cystocele, midline 08/12/2008 04/19/2011 documented as of this encounter (statuses as of 05/11/2022) [facility] Narrative* Problem Noted Date Resolved Date Postmenopausal bleeding 04/19/2011 04/25/20 12 Cystocele, midline 08/12/2008 04/19/2011 documented as of this encounter (statuses as of 05/11/2022) [facility] Narrative* Problem Noted Date Resolved Date Postmenopausal bleeding 04/19/2011 04/25/20 12 Cystocele, midline 08/12/2008 04/19/2011 documented as of this encounter (statuses as of 05/20/2022) [facility] Narrative* Problem Noted Date Resolved Date Postmenopausal bleeding 04/19/2011 04/25/20 12 Cystocele, midline 08/12/2008 04/19/2011 documented as of this encounter (statuses as of 07/27/2022) [facility] Narrative* Problem Noted Date Resolved Date Postmenopausal bleeding 04/19/2011 04/25/20 12 Cystocele, midline 08/12/2008 04/19/2011 documented as of this encounter (statuses as of 09/21/2022) [facility] Narrative* Problem Noted Date Resolved Date Postmenopausal bleeding 04/19/2011 04/25/20 12 Cystocele, midline 08/12/2008 04/19/2011 documented as of this encounter (statuses as of 12/26/2022) [facility] Narrative* Problem Noted Date Diagnosed Date Resolved Date Postmenopausal bleeding 04/19/201109/2011 Cystocele, midline 08/12/2008 1 documented as of this encounter (statuses as of 02/07/2023) [facility] Narrative* Problem Noted Date Diagnosed Date Resolved Date Postmenopausal bleeding 04/19/201109/2011 Cystocele, midline 08/12/2008 1 documented as of this encounter (statuses as of 05/17/2023) [facility] Narrative* Problem Noted Date Diagnosed Date Resolved Date Postmenopausal bleeding 04/19/201109/2011 Cystocele, midline 08/12/2008 1 documented as of this encounter (statuses as of 05/18/2023) [facility] Narrative* Problem Noted Date Diagnosed Date Resolved Date Postmenopausal bleeding 04/19/201109/2011 Cystocele, midline 08/12/2008 1 documented as of this encounter (statuses as of 05/27/2023) [facility] Narrative* Problem Noted Date Diagnosed Date Resolved Date Postmenopausal bleeding 04/19/201109/2011 Cystocele, midline 08/12/2008 1 documented as of this encounter (statuses as of 05/28/2023) [facility] Narrative* Problem Noted Date Diagnosed Date Resolved Date Postmenopausal bleeding 04/19/201109/2011 Cystocele, midline 08/12/2008 1 documented as of this encounter (statuses as of 05/28/2023) [facility] Narrative* Problem Noted Date Diagnosed Date Resolved Date Postmenopausal bleeding 04/19/201109/2011 Cystocele, midline 08/12/2008 1 documented as of this encounter (statuses as of 05/30/2023) [facility] Narrative* Problem Noted Date Diagnosed Date Resolved Date Postmenopausal bleeding 04/19/201109/2011 Cystocele, midline 08/12/2008 1 documented as of this encounter (statuses as of 05/30/2023) [facility] Narrative* Problem Noted Date Diagnosed Date Resolved Date Postmenopausal bleeding 04/19/201109/2011 Cystocele, midline 08/12/2008 1 documented as of this encounter (statuses as of 06/01/2023) [facility] Narrative* Problem Noted Date Diagnosed Date Resolved Date Postmenopausal bleeding 04/19/201109/2011 Cystocele, midline 08/12/2008 1 documented as of this encounter (statuses as of 06/01/2023) [address]27-2011 History of Past illness Narrative* Problem Noted Date Diagnosed Date Resolved Date Postmenopausal bleeding 04/19/201109/2011 Cystocele, midline 08/12/2008 1 documented as of this encounter (statuses as of 06/06/2023) [facility] Narrative* Problem Noted Date Diagnosed Date Resolved Date Postmenopausal bleeding 04/19/201109/2011 Cystocele, midline 08/12/2008 1 documented as of this encounter (statuses as of 06/06/2023) [facility] Narrative* Problem Noted Date Diagnosed Date Resolved Date Postmenopausal bleeding 04/19/201109/2011 Cystocele, midline 08/12/2008 1 documented as of this encounter (statuses as of 06/07/2023) [facility] Narrative* Problem Noted Date Diagnosed Date Resolved Date Postmenopausal bleeding 04/19/201109/2011 Cystocele, midline 08/12/2008 1 documented as of this encounter (statuses as of 06/08/2023) [facility] Diagnosis Plantar fasciitis of left foot- Primary Plantar fascial fibromatosis documented in this encounter [facility] Diagnosis Medicare annual wellness visit, subsequent- Primary Routine general medical examination at a health care facility IFG (impaired fasting glucose) Impaired fasting glucose Hyperlipidemia, mixed Mixed hyperlipidemia Hypoalbuminemia Other disorders of plasma protein metabolism Vitamin D deficiency Unspecified vitamin D deficiency Other specified disorders of bone density and structure, multiple sites [facility] Diagnosis Dysuria- [facility] Diagnosis PMB (postmenopausal bleeding) Postmenopausal bleeding [facility] Diagnosis PMB (postmenopausal bleeding)- Primary Postmenopausal bleeding [facility] Diagnosis COVID-19- Primary [facility] Diagnosis IFG (impaired fasting glucose)- Primary Impaired fasting glucose Hyperlipidemia, mixed Mixed hyperlipidemia Vitamin D deficiency Unspecified vitamin D deficiency Hypoalbuminemia Other disorders of plasma protein metabolism [facility] Diagnosis Localized swelling, mass and lump, neck- Primary Swelling, mass, or lump in head and neck Need for influenza vaccination Need for prophylactic vaccination and inoculation against influenza Encounter for screening mammogram for malignant neoplasm of breast Other screening mammogram Fatigue, unspecified type Neck pain on left side Cervicalgia Acute pain of left shoulder Left hand paresthesia Disturbance of skin sensation Chronic kidney disease, stage 3a (HCC) IFG (impaired fasting glucose) Impaired fasting glucose Hyperlipidemia, mixed Mixed hyperlipidemia Vitamin D deficiency Unspecified vitamin D deficiency Vitamin B12 deficiency Other B-complex deficiencies [facility] Diagnosis Hypoalbuminemia Other disorders of plasma protein metabolism Vitamin D deficiency Unspecified vitamin D deficiency Other specified disorders of bone density and structure, multiple sites [facility] Diagnosis Screening mammogram for breast cancer [facility] Diagnosis Arthritis of neck- Primary Cervical spondylosis without myelopathy DDD (degenerative disc disease), cervical Degeneration of cervical intervertebral disc [facility] Diagnosis Localized swelling, mass and lump, neck Swelling, mass, or lump in head and neck Fatigue, unspecified type Neck pain on left side Cervicalgia [facility] Diagnosis Spasm of cervical paraspinous muscle- Primary Spasm of muscle Arthritis of neck Cervical spondylosis without myelopathy DDD (degenerative disc disease), cervical Degeneration of cervical intervertebral disc Neck pain on left side Cervicalgia Acute pain of left shoulder Left hand paresthesia Disturbance of skin sensation [facility] Diagnosis Encounter for screening mammogram for malignant neoplasm of breast Other screening mammogram [facility] Diagnosis Procedure not carried out- Primary Procedure not carried out for other reasons [facility] Diagnosis Dizziness- Primary Dizziness and giddiness SOB (shortness of breath) Shortness of breath [facility] Diagnosis Pneumonia of left lower lobe due to infectious organism- Primary Dizziness Dizziness and giddiness Hypertension, essential Unspecified essential hypertension [facility] Diagnosis Encounter for gynecological examination (general) (routine) without abnormal findings- Primary Encounter for screening mammogram for breast cancer Screening for colon cancer Special screening for malignant neoplasms, colon [facility] Diagnosis Vitamin D deficiency- Primary Unspecified vitamin D deficiency Vitamin B12 deficiency Other B-complex deficiencies IFG (impaired fasting glucose) Impaired fasting glucose Hyperlipidemia, mixed Mixed hyperlipidemia documented [facility] Diagnosis Bacterial pneumonia- Primary Bacterial pneumonia, unspecified [facility] Diagnosis Bacterial pneumonia Bacterial pneumonia, unspecified [facility] Diagnosis Medicare annual wellness visit, subsequent- Primary Routine general medical examination at a health care facility SOB (shortness of breath) Shortness of breath Tremor Abnormal involuntary movements Hypertension, essential Unspecified essential hypertension LVH (left ventricular hypertrophy) Cardiomegaly Chronic kidney disease, stage 3a (HCC) Dyslipidemia Other and unspecified hyperlipidemia Hyperlipidemia, mixed Mixed hyperlipidemia Vitamin D deficiency Unspecified vitamin D deficiency Vitamin B12 deficiency Other B-complex deficiencies IFG (impaired fasting glucose) Impaired fasting glucose DDD (degenerative disc disease), cervical Degeneration of cervical intervertebral disc [facility] Diagnosis Encounter for screening colonoscopy- Primary Special screening for malignant neoplasms, colon Screening for colon cancer Special screening for malignant neoplasms, colon [facility] Diagnosis SOB (shortness of breath) Shortness of breath documented [facility] Diagnosis Thyroid nodule Nontoxic uninodular goiter documented [facility] Diagnosis Thyroid nodule- Primary Nontoxic uninodular goiter Abnormal echocardiogram Nonspecific (abnormal) findings on radiological and other examination of other intrathoracic organs Cardiac amyloidosis (HCC) Other amyloidosis Thyroid nodule Nontoxic uninodular goiter [facility] Diagnosis Thyroid nodule- Primary Nontoxic uninodular goiter [facility]* Diagnosis Abnormal ultrasound of thyroid gland Nonspecific abnormal results of thyroid function study documented [facility] Diagnosis Abnormal ultrasound of thyroid gland- Primary Nonspecific abnormal results of thyroid function study [facility]* Diagnosis Light chain disease (HCC)- Primary Multiple myeloma, without mention of having achieved remission [facility] Diagnosis Abnormal echocardiogram- Primary Nonspecific (abnormal) findings on radiological and other examination of other intrathoracic organs Cardiac amyloidosis (HCC) Other amyloidosis SOB (shortness of breath) Shortness of breath Hypertension, essential Unspecified essential hypertension LVH (left ventricular hypertrophy) Cardiomegaly [facility] Diagnosis Tremor- Primary Abnormal involuntary movements History of traumatic brain injury Personal history of traumatic brain injury Diplopia Incoordination Lack of coordination Abnormality of gait Post traumatic seizure (HCC) Post traumatic seizures Claustrophobia Other isolated or specific phobias [facility]* Diagnosis Tremor Abnormal involuntary movements History of traumatic brain injury Personal history of traumatic brain injury Diplopia Incoordination Lack of coordination Abnormality of gait [facility] noteNo assessment information availableWLouis Stokes [facility] Work Phone: Evaluation note* Diagnosis Onset Date Resolution Status Admit Date Cardiac amyloidosis acute November 222024 10:33am [facility] Work Phone: Reason for referral (narrative)* Diagnostic Procedure Only (Routine) - Closed Specialty Diagnoses / Procedures Referred By Fawn cage Referred To Contact [facility] Diagnoses Screening mammogram for breast cancer Procedures LISBET SCREENING SCREENING MAMMOGRAPHY BI 2-VIEW BREAST INC CAD Luna Bruce APRN.CNP [address] [place] [address] [facility] [address] [place] [address] Referral ID Status Reason Start Date Expiration Date V isits Requested Visits Authorized [id number] Closed Auto-Generate d Referral 03/16/2022 04/13/2023 1 1 [facility] for referral (narrative)* Diagnostic Procedure Only (Routine) - Closed Specialty Diagnoses / Procedures Referred By Fawn cage Referred To Contact [facility] Diagnoses Encounter for screening mammogram for malignant neoplasm of breast Procedures LISBET SCREENING SCREENING MAMMOGRAPHY BI 2-VIEW BREAST INC CAD Pete Morejon DO [address] [place] [address] [facility] [address] [place] [address] Referral ID Status Reason Start Date Expiration Date V isits Requested Visits Authorized [id number] Closed Auto-Generate d Referral 05/26/2023 06/24/2024 1 1 [facility] for referral (narrative)* Outpatient Procedure (Routine) - New Request Specialty Diagnoses / Procedures Referred By Fawn cage Referred To Contact [facility] Diagnoses Dizziness SOB (shortness of breath) Procedures ECG COMPLETE ECG ROUTINE ECG W/LEAST 12 LDS W/I&R Nestor Crowe PA-C [address] [place] [address] [facility] [place] [address] [place] [address] Referral ID Status Reason Start Date Expiration Date Visits Requested Visits Authorized [id number] New Request Auto-Generat ed Referral 4 05/07/2025 1 1 [facility] Outpatient Procedure (Routine) - Authorized Specialty Diagnoses / Procedures Referred By Fawn cage Referred To Contact [facility] Diagnoses Screening for colon cancer Procedures COLONOSCOPY SCREENING COLONOSCOPY FLX DX W/COLLJ SPEC WHEN PFRMD Savanah Soria MD [address] [place] [address] [facility] [place] [address] [place] [id number] Referral ID Status Reason Start Date Expiration Date Visits Requested Visits Authorized [id number] Authorized Auto-Generat ed Referral 4 07/03/2025 1 1 * Diagnostic Procedure Only (Routine) - Authorized Specialty Diagnoses / Procedures Referred By Fawn cage Referred To Contact [facility] Diagnoses Encounter for gynecological examination (general) (routine) without abnormal findings Encounter for screening mammogram for breast cancer Procedures LISBET SCREENING W SAM SCREENING DIGITAL BREAST TOMOSYNTHESIS BI SCREENING MAMMOGRAPHY BI 2-VIEW BREAST INC CAD Savanah Soria MD [address] [place] [address] [facility] [address] [place] [address] Referral ID Status Reason Start Date Expiration Date Visits Requested Visits Authorized [id number] Authorized Auto-Generat ed Referral 4 08/02/2025 1 1 [facility] for referral (narrative)* Outpatient Procedure (Routine) - Closed Specialty Diagnoses / Procedures Referred By Fawn cage Referred To Contact [facility] Diagnoses Screening for colon cancer Procedures COLONOSCOPY SCREENING COLONOSCOPY FLX DX W/COLLJ SPEC WHEN PFRMD Savanah Soria MD [address] [place] [address] [facility] [place] [address] [place] [id number] Referral ID Status Reason Start Date Expiration Date V isits Requested Visits Authorized [id number] Closed Auto-Generate d Referral 07/03/2024 07/03/2025 1 1 [facility] for referral (narrative)No reason for referral information availableWLouis Stokes [facility] Work Phone: Reason for visit Narrative* Diagnostic Procedure Only (Routine) - Closed Specialty Diagnoses / Procedures Referred By Fawn cage Referred To Contact [facility] Diagnoses PMB (postmenopausal bleeding) Procedures PELVIC US I US PELVIC NONOBSTETRIC REAL-TIME IMAGE COMPLETE Savanah Soria MD [address] [place] [address] [address] Referral ID Status Reason Start Date Expiration Date V isits Requested Visits Authorized [id number] Closed Auto-Generate d Referral 05/04/2022 05/04/2023 1 1 [facility] for visit Narrative* Diagnostic Procedure Only (Routine) - Closed Specialty Diagnoses / Procedures Referred By Fawn cage Referred To Contact [facility] Diagnoses Screening mammogram for breast cancer Procedures LISBET SCREENING SCREENING MAMMOGRAPHY BI 2-VIEW BREAST INC CAD Luna Bruce, MOLD MAINTENANCE TECHNICIAN.WOLF HUNTER [address] [place] [address] [facility] [address] [place] [address] Referral ID Status Reason Start Date Expiration Date V isits Requested Visits Authorized [id number] Closed Auto-Generate d Referral 03/16/2022 04/13/2023 1 1 [facility] for visit Narrative* Diagnostic Procedure Only (Routine) - Closed Specialty Diagnoses / Procedures Referred By Fawn t Referred To Contact [facility] Diagnoses Encounter for screening mammogram for malignant neoplasm of breast Procedures LISBET SCREENING SCREENING MAMMOGRAPHY BI 2-VIEW BREAST INC CAD Pete Morejon, DO [address] [place] [address] [facility] [address] [place] [address] Referral ID Status Reason Start Date Expiration Date V isits Requested Visits Authorized [id number] Closed Auto-Generate d Referral 05/26/2023 06/24/2024 1 1 [facility] for visit Narrative* Outpatient Procedure (Routine) - Closed Specialty Diagnoses / Procedures Referred By Fawn cage Referred To Contact [facility] Diagnoses Screening for colon cancer Procedures COLONOSCOPY SCREENING COLONOSCOPY FLX DX W/COLLJ SPEC WHEN PFRMD Savanah Soria MD [address] [place] [address] [facility] [place] [address] [place] [address] Referral ID Status Reason Start Date Expiration Date V isits Requested Visits Authorized [id number] Closed Auto-Generate d Referral 07/03/2024 07/03/2025 1 1 [facility] for visit Narrative* MRI/CT (Routine) - Closed Specialty Diagnoses / Procedures Referred By Fawn cage Referred To Contact MR IMAGING Diagnoses Tremor History of traumatic brain injury Diplopia Incoordination Abnormality of gait Procedures MRI BRAIN WO IVCON MRI BRAIN BRAIN STEM W/O CONTRAST MATERIAL Saul Gil Jr., MD [address] [place] [address] Phone: tel: fax: [facility]95 Referral ID Status Reason Start Date Expiration Date V isits Requested Visits Authorized [id number] Closed Auto-Generate d Referral 10/21/2024 11/20/2025 1 1 [facility] Medications Administered Section Inactive Administered Medications - up to 3 most recent administrations Medication Order MAR Action Action Date Dose Rate Site bupivacaine (PF) 0.5 % (5 mg/mL) 2.5 mg injection 2.5 mg (0.5 mL), INTRA-ARTICULAR, ONCE, 1 dose, On Mon11/02/21 at 1400 Given 11/02/2021 3:46 PM EDT 2.5 mg Foot, Left dexAMETHasone sodium phosphate 2 mg injection (DECADRON) 2 mg, INTRA-ARTICULAR, ONCE, 1 dose, On Mon11/02/21 at 1400 Given 11/02/2021 3:46 PM EDT 2 mg Foot, Left triamcinolone acetonide 5 mg injection (KeNALog 10) 5 mg, INTRA-ARTICULAR, ONCE, 1 dose, On Mon11/02/21 at 1400 Given 11/02/2021 3:47 PM EDT 5 mg Foot, Left Advance Directives No Advanced Directives Records FoundDocuments on File Type Date Recorded Patient Executive Relations Specialist Expl anation Advance Directive(s) 11/29/2018 11:38 AM Advance Directive(s) 08/14/2018 1:36 PM Advance Directive(s) 03/22/2018 9:37 AM Advance Directive(s) 03/12/2018 10:12 AM Advance Directive(s) 09/26/2017 9:01 AM Advance Directive(s) 09/12/2017 9:05 AM Advance Directive(s) 06/22/2017 9:54 AM Advance Directive(s) 06/19/2017 9:40 AM Reason for Referral Specialty Diagnoses / Procedures Referred By Fawn cage Referred To Contact [facility] Diagnoses Neck pain on left side Acute pain of left shoulder Left hand paresthesia Procedures CONSULT TO PHYSICAL THERAPY PHYSICAL THERAPY EVALUATION HIGH COMPLEX 45 MINS Pete Morejon, DO [address] [place] [address] [facility] [address] [address] Referral ID Status Reason Start Date Expiration Date Visits Requested Visits Authorized [id number] Authorized PCP Requested Referral Auto-Generate d Referral 05/26/2023 05/25/2024 99 99 Specialty Diagnoses / Procedures Referred By Fawn cage Referred To Contact XR IMAGING Diagnoses Neck pain on left side Procedures XR CERV OTHER 4V AP/LAT/OBL RADEX SPINE CERVICAL 4 OR 5 VIEWS Pete Morejon, DO [address] [place] [address] [place] [address] Referral ID Status Reason Start Date Expiration Date Visits Requested Visits Authorized [id number] Pending Review Auto-Generat ed Referral 05/26/2023 06/24/2024 1 1 Specialty Diagnoses / Procedures Referred By Contac t Referred To Contact XR IMAG[facility] Diagnoses Neck pain on left side Acute pain of left shoulder Procedures XR SHOULDER ORTHO 4V AP/TRUE AP/LAT/OUTLET LEFT RADEX SHOULDER COMPLETE MINIMUM 2 VIEWS Pete Morejon, DO [address] [place] [address] [place] [address] Referral ID Status Reason Start Date Expiration Date Visits Requested Visits Authorized [id number] Pending Review Auto-Generat ed Referral 05/26/2023 06/24/2024 1 1 Specialty Diagnoses / Procedures Referred By Contac t Referred To Contact CT IMAGING Diagnoses Localized swelling, mass and lump, neck Fatigue, unspecified type Neck pain on left side Procedures CT NECK SOFT TISSUE W IVCON CT SOFT TISSUE NECK W/CONTRAST MATERIAL Pete Morejon, DO [address] [place] [address] [place] [address] Referral ID Status Reason Start Date Expiration Date Visits Requested Visits Authorized [id number] Pending Review Auto-Generat ed Referral 05/26/2023 06/24/2024 1 1 Specialty Diagnoses / Procedures Referred By Contac t Referred To Contact [facility] Diagnoses Encounter for screening mammogram for malignant neoplasm of breast Procedures LISBET SCREENING SCREENING MAMMOGRAPHY BI 2-VIEW BREAST INC CAD Pete Morejon, DO [address] [place] [address] [facility] [address] [place] [address] Referral ID Status Reason Start Date Expiration Date Visits Requested Visits Authorized [id number] Pending Review Auto-Generat ed Referral 05/26/2023 06/24/2024 1 1 Specialty Diagnoses / Procedures Referred By Contac t Referred To Contact Pain Management Diagnoses Arthritis of neck DDD (degenerative disc disease), cervical Procedures CONSULT TO PAIN MGT OFFICE/OUTPATIENT [facility] 60-74 MINUTES Pete Morejon, DO [address] [place] [address] Referral ID Status Reason Start Date Expiration Date Visits Requested Visits Authorized [id number] Authorized PCP Requested Referral 05/29/2023 05/28/2024 1 1 Referral ID Status Reason Start Date Expiration Date V isits Requested Visits Authorized [id number] Closed Auto-Generate d Referral 05/26/2023 06/24/2024 1 1 Specialty Diagnoses / Procedures Referred By Contac t Referred To Contact [facility] Diagnoses DDD (degenerative disc disease), cervical Spasm of cervical paraspinous muscle Procedures CONSULT TO PHYSICAL THERAPY PHYSICAL THERAPY EVALUATION HIGH COMPLEX 45 MINS Jin Cole MD [address] [facility] [place] [address] [facility] [address] [address] Referral ID Status Reason Start Date Expiration Date Visits Requested Visits Authorized [id number] Authorized PCP Requested Referral Auto-Generate d Referral 06/06/2024 99 99 Specialty Diagnoses / Procedures Referred By Contac t Referred To Contact Neurology Diagnoses Tremor Procedures CONSULT TO NEUROLOGY OFFICE/OUTPATIENT [facility] 60 MINUTES Pete Morejon, DO [address] [place] [address] Referral ID Status Reason Start Date Expiration Date Visits Requested Visits Authorized [id number] Authorized PCP Requested Referral 07/30/2024 07/30/2025 1 1 Specialty Diagnoses / Procedures Referred By Contac t Referred To [facility] Diagnoses SOB (shortness of breath) Hypertension, essential LVH (left ventricular hypertrophy) Dyslipidemia Procedures ECHO ECHO TTHRC R-T 2D W/WOM-MODE COMPL SPEC&COLR D Pete Morejon, DO [address] [place] [address] [facility] [place] [address] [place] [address] Referral ID Status Reason Start Date Expiration Date Visits Requested Visits Authorized [id number] Authorized Auto-Generat ed Referral 07/30/2024 07/30/2025 1 1 Specialty Diagnoses / Procedures Referred By Contac t Referred To Contact CT IMAGING Diagnoses SOB (shortness of breath) Procedures CT CHEST WO IVCON DIAGNOSTIC COMPUTED TOMOGRAPHY THORAX W/O CNTRST Pete Morejon, DO [address] [place] [address] [place] [address] Referral ID Status Reason Start Date Expiration Date Visits Requested Visits Authorized [id number] Authorized Auto-Generat ed Referral 07/30/2024 08/29/2025 1 1 Specialty Diagnoses / Procedures Referred By Contac t Referred To Contact Diagnoses Thyroid nodule Abnormal echocardiogram Cardiac amyloidosis (HCC) Pete Morejon, DO [address] [place] [address] Referral ID Status Reason Start Date Expiration Date Visits Re quested Visits Authorized [id number] Closed 1 1 Specialty Diagnoses / Procedures Referred By Contac t Referred To Contact MR IMAGING Diagnoses Abnormal echocardiogram Cardiac amyloidosis (HCC) Procedures MRI CARDIAC VELOCITY FLOW MAP CARDIAC MRI FOR VELOCITY FLOW MAPPING Pete Morejon, DO [address] [place] [address] [place] [address] Referral ID Status Reason Start Date Expiration Date Visits Requested Visits Authorized [id number] New Request Auto-Generat ed Referral 08/21/2024 09/20/2025 1 1 Specialty Diagnoses / Procedures Referred By Contac t Referred To Contact MR IM[facility] Diagnoses Abnormal echocardiogram Cardiac amyloidosis (HCC) Procedures MRI CARDIAC MORPH FUNC WO/W IVCON CARDIAC MRI W/WO CONTRAST & FURTHER SEQ Pete Morejon, DO [address] [place] [address] [place] [address] Referral ID Status Reason Start Date Expiration Date Visits Requested Visits Authorized [id number] New Request Auto-Generat ed Referral 08/21/2024 09/20/2025 1 1 Specialty Diagnoses / Procedures Referred By Contac t Referred To Contact [facility] Diagnoses Abnormal echocardiogram Cardiac amyloidosis (HCC) Procedures NM SPECT/CT CARDIAC AMYLOID RP LOCLZJ SHAWANDA SPECT W/CT 1 AREA 1 DAY IMAGING Pete Morejon L, DO [address] [place] [address] [facility] [address] [place] [address] Referral ID Status Reason Start Date Expiration Date Visits Requested Visits Authorized [id number] New Request Auto-Generat ed Referral 08/21/2024 09/20/2025 1 1 Specialty Diagnoses / Procedures Referred By Fawn cage Referred To Contact US IMAGING Diagnoses Thyroid nodule Procedures US THYROID/PARATHYROID US SOFT TISSUE HEAD & NECK REAL TIME IMGE DOCM Pete Morejon L, DO [address] [place] [address] [facility] [place] [address] Referral ID Status Reason Start Date Expiration Date V isits Requested Visits Authorized [id number] Closed Auto-Generate d Referral 08/21/2024 09/20/2025 1 1 Specialty Diagnoses / Procedures Referred By Fawn cage Referred To Contact General Surgery Diagnoses Thyroid nodule Procedures CONSULT TO GENERAL SURGERY OFFICE/OUTPATIENT [facility] 60 MINUTES Jon Plasencia APRN.WOLF HUNTER [address] [place] [address] Referral ID Status Reason Start Date Expiration Date Visits Requested Visits Authorized [id number] Authorized PCP Requested Referral 08/28/2024 08/28/2025 1 1 Summary Purpose Family History No Family History Records Found Relationship Condition Age at Onset Recorded Date/T awa mother Atrial fibrillation Unknown brother Atrial fibrillation Unknown grandfather Cerebrovascular accident (CVA) Unknown Chief Complaint and Reason for Visit Chief Complaint Admit Date TREMOR, HX TBI, DIPLOPIA, INCOORDINATION , ABN GAIT November 04, 2024 2:07pm Chief Complaint Admit Date TREMOR, HX TBI, DIPLOPIA, INCOORDINATION , ABN GAIT November 04, 2024 2:07pm ABN ECHO/Cardiac Amyloidosis/SOB/HTN/LVH Morejon December 11, 2024 10:33am Reason for Visit Admit Date Cardiac amyloidosis December 11, 2024 10:33 am Chief Complaint Admit Date TREMOR, HX TBI, DIPLOPIA, INCOORDINATION , ABN GAIT November 04, 2024 2:07pm ABN ECHO/Cardiac Amyloidosis/SOB/HTN/LVH Morejon December 11, 2024 10:33am INT LAB ORDERS December 11, 2024 11:42 am Additional Source Comments Source Comments (unrecognize d section and content) In the event this informatio n is protected by the Federal Confidentiality of Alcohol and Drug Abuse Patient Records regulations: The Federal rules restrict any use of the information to criminally investigate or prosecute any alcohol or drug abuse patient.[facility] the event this information is protected by the Federal Confidentiality of Alcohol and Drug Abuse Patient Records regulations: The Federal rules restrict any use of the information to criminally investigate or prosecute any alcohol or drug abuse patient.[facility] HospitalIn the event this information is protected by the Federal Confidentiality of Alcohol and Drug Abuse Patient Records regulations: The Federal rules restrict any use of the information to criminally investigate or prosecute any alcohol or drug abuse patient.[facility] HospitalIn the event this information is protected by the Federal Confidentiality of Alcohol and Drug Abuse Patient Records regulations: The Federal rules restrict any use of the information to criminally investigate or prosecute any alcohol or drug abuse patient.[facility] HospitalIn the event this information is protected by the Federal Confidentiality of Alcohol and Drug Abuse Patient Records regulations: The Federal rules restrict any use of the information to criminally investigate or prosecute any alcohol or drug abuse patient.[facility] HospitalIn the event this information is protected by the Federal Confidentiality of Alcohol and Drug Abuse Patient Records regulations: The Federal rules restrict any use of the information to criminally investigate or prosecute any alcohol or drug abuse patient.[facility] HospitalIn the event this information is protected by the Federal Confidentiality of Alcohol and Drug Abuse Patient Records regulations: The Federal rules restrict any use of the information to criminally investigate or prosecute any alcohol or drug abuse patient.[facility] HospitalIn the event this information is protected by the Federal Confidentiality of Alcohol and Drug Abuse Patient Records regulations: The Federal rules restrict any use of the information to criminally investigate or prosecute any alcohol or drug abuse patient.[facility] HospitalIn the event this information is protected by the Federal Confidentiality of Alcohol and Drug Abuse Patient Records regulations: The Federal rules restrict any use of the information to criminally investigate or prosecute any alcohol or drug abuse patient.[facility] HospitalIn the event this information is protected by the Federal Confidentiality of Alcohol and Drug Abuse Patient Records regulations: The Federal rules restrict any use of the information to criminally investigate or prosecute any alcohol or drug abuse patient.[facility] HospitalIn the event this information is protected by the Federal Confidentiality of Alcohol and Drug Abuse Patient Records regulations: The Federal rules restrict any use of the information to criminally investigate or prosecute any alcohol or drug abuse patient.[facility] HospitalIn the event this information is protected by the Federal Confidentiality of Alcohol and Drug Abuse Patient Records regulations: The Federal rules restrict any use of the information to criminally investigate or prosecute any alcohol or drug abuse patient.[facility] HospitalIn the event this information is protected by the Federal Confidentiality of Alcohol and Drug Abuse Patient Records regulations: The Federal rules restrict any use of the information to criminally investigate or prosecute any alcohol or drug abuse patient.[facility] HospitalIn the event this information is protected by the Federal Confidentiality of Alcohol and Drug Abuse Patient Records regulations: The Federal rules restrict any use of the information to criminally investigate or prosecute any alcohol or drug abuse patient.[facility] HospitalIn the event this information is protected by the Federal Confidentiality of Alcohol and Drug Abuse Patient Records regulations: The Federal rules restrict any use of the information to criminally investigate or prosecute any alcohol or drug abuse patient.[facility] HospitalIn the event this information is protected by the Federal Confidentiality of Alcohol and Drug Abuse Patient Records regulations: The Federal rules restrict any use of the information to criminally investigate or prosecute any alcohol or drug abuse patient.[facility] HospitalIn the event this information is protected by the Federal Confidentiality of Alcohol and Drug Abuse Patient Records regulations: The Federal rules restrict any use of the information to criminally investigate or prosecute any alcohol or drug abuse patient.[facility] HospitalIn the event this information is protected by the Federal Confidentiality of Alcohol and Drug Abuse Patient Records regulations: The Federal rules restrict any use of the information to criminally investigate or prosecute any alcohol or drug abuse patient.[facility] HospitalIn the event this information is protected by the Federal Confidentiality of Alcohol and Drug Abuse Patient Records regulations: The Federal rules restrict any use of the information to criminally investigate or prosecute any alcohol or drug abuse patient.[facility] HospitalIn the event this information is protected by the Federal Confidentiality of Alcohol and Drug Abuse Patient Records regulations: The Federal rules restrict any use of the information to criminally investigate or prosecute any alcohol or drug abuse patient.[facility] HospitalIn the event this information is protected by the Federal Confidentiality of Alcohol and Drug Abuse Patient Records regulations: The Federal rules restrict any use of the information to criminally investigate or prosecute any alcohol or drug abuse patient.[facility] HospitalIn the event this information is protected by the Federal Confidentiality of Alcohol and Drug Abuse Patient Records regulations: The Federal rules restrict any use of the information to criminally investigate or prosecute any alcohol or drug abuse patient.[facility] HospitalIn the event this information is protected by the Federal Confidentiality of Alcohol and Drug Abuse Patient Records regulations: The Federal rules restrict any use of the information to criminally investigate or prosecute any alcohol or drug abuse patient.[facility] HospitalIn the event this information is protected by the Federal Confidentiality of Alcohol and Drug Abuse Patient Records regulations: The Federal rules restrict any use of the information to criminally investigate or prosecute any alcohol or drug abuse patient.[facility] HospitalIn the event this information is protected by the Federal Confidentiality of Alcohol and Drug Abuse Patient Records regulations: The Federal rules restrict any use of the information to criminally investigate or prosecute any alcohol or drug abuse patient.[facility] HospitalIn the event this information is protected by the Federal Confidentiality of Alcohol and Drug Abuse Patient Records regulations: The Federal rules restrict any use of the information to criminally investigate or prosecute any alcohol or drug abuse patient.[facility] HospitalIn the event this information is protected by the Federal Confidentiality of Alcohol and Drug Abuse Patient Records regulations: The Federal rules restrict any use of the information to criminally investigate or prosecute any alcohol or drug abuse patient.[facility] HospitalIn the event this information is protected by the Federal Confidentiality of Alcohol and Drug Abuse Patient Records regulations: The Federal rules restrict any use of the information to criminally investigate or prosecute any alcohol or drug abuse patient.[facility] HospitalIn the event this information is protected by the Federal Confidentiality of Alcohol and Drug Abuse Patient Records regulations: The Federal rules restrict any use of the information to criminally investigate or prosecute any alcohol or drug abuse patient.[facility] HospitalIn the event this information is protected by the Federal Confidentiality of Alcohol and Drug Abuse Patient Records regulations: The Federal rules restrict any use of the information to criminally investigate or prosecute any alcohol or drug abuse patient.[facility] HospitalIn the event this information is protected by the Federal Confidentiality of Alcohol and Drug Abuse Patient Records regulations: The Federal rules restrict any use of the information to criminally investigate or prosecute any alcohol or drug abuse patient.[facility] HospitalIn the event this information is protected by the Federal Confidentiality of Alcohol and Drug Abuse Patient Records regulations: The Federal rules restrict any use of the information to criminally investigate or prosecute any alcohol or drug abuse patient.[facility] HospitalIn the event this information is protected by the Federal Confidentiality of Alcohol and Drug Abuse Patient Records regulations: The Federal rules restrict any use of the information to criminally investigate or prosecute any alcohol or drug abuse patient.[facility] HospitalIn the event this information is protected by the Federal Confidentiality of Alcohol and Drug Abuse Patient Records regulations: The Federal rules restrict any use of the information to criminally investigate or prosecute any alcohol or drug abuse patient.[facility] HospitalIn the event this information is protected by the Federal Confidentiality of Alcohol and Drug Abuse Patient Records regulations: The Federal rules restrict any use of the information to criminally investigate or prosecute any alcohol or drug abuse patient.[facility] HospitalIn the event this information is protected by the Federal Confidentiality of Alcohol and Drug Abuse Patient Records regulations: The Federal rules restrict any use of the information to criminally investigate or prosecute any alcohol or drug abuse patient.[facility] HospitalIn the event this information is protected by the Federal Confidentiality of Alcohol and Drug Abuse Patient Records regulations: The Federal rules restrict any use of the information to criminally investigate or prosecute any alcohol or drug abuse patient.[facility] HospitalIn the event this information is protected by the Federal Confidentiality of Alcohol and Drug Abuse Patient Records regulations: The Federal rules restrict any use of the information to criminally investigate or prosecute any alcohol or drug abuse patient.[facility]In the event this information is protected by the Federal Confidentiality of Alcohol and Drug Abuse Patient Records regulations: The Federal rules restrict any use of the information to criminally investigate or prosecute any alcohol or drug abuse patient.[facility] HospitalIn the event this information is protected by the Federal Confidentiality of Alcohol and Drug Abuse Patient Records regulations: The Federal rules restrict any use of the information to criminally investigate or prosecute any alcohol or drug abuse patient.[facility] HospitalIn the event this information is protected by the Federal Confidentiality of Alcohol and Drug Abuse Patient Records regulations: The Federal rules restrict any use of the information to criminally investigate or prosecute any alcohol or drug abuse patient.[facility] HospitalIn the event this information is protected by the Federal Confidentiality of Alcohol and Drug Abuse Patient Records regulations: The Federal rules restrict any use of the information to criminally investigate or prosecute any alcohol or drug abuse patient.[facility] HospitalIn the event this information is protected by the Federal Confidentiality of Alcohol and Drug Abuse Patient Records regulations: The Federal rules restrict any use of the information to criminally investigate or prosecute any alcohol or drug abuse patient.[facility] HospitalIn the event this information is protected by the Federal Confidentiality of Alcohol and Drug Abuse Patient Records regulations: The Federal rules restrict any use of the information to criminally investigate or prosecute any alcohol or drug abuse patient.[facility] HospitalIn the event this information is protected by the Federal Confidentiality of Alcohol and Drug Abuse Patient Records regulations: The Federal rules restrict any use of the information to criminally investigate or prosecute any alcohol or drug abuse patient.[facility] HospitalIn the event this information is protected by the Federal Confidentiality of Alcohol and Drug Abuse Patient Records regulations: The Federal rules restrict any use of the information to criminally investigate or prosecute any alcohol or drug abuse patient.[facility] HospitalIn the event this information is protected by the Federal Confidentiality of Alcohol and Drug Abuse Patient Records regulations: The Federal rules restrict any use of the information to criminally investigate or prosecute any alcohol or drug abuse patient.[facility] HospitalIn the event this information is protected by the Federal Confidentiality of Alcohol and Drug Abuse Patient Records regulations: The Federal rules restrict any use of the information to criminally investigate or prosecute any alcohol or drug abuse patient.[facility] HospitalIn the event this information is protected by the Federal Confidentiality of Alcohol and Drug Abuse Patient Records regulations: The Federal rules restrict any use of the information to criminally investigate or prosecute any alcohol or drug abuse patient.[facility] HospitalIn the event this information is protected by the Federal Confidentiality of Alcohol and Drug Abuse Patient Records regulations: The Federal rules restrict any use of the information to criminally investigate or prosecute any alcohol or drug abuse patient.[facility] HospitalIn the event this information is protected by the Federal Confidentiality of Alcohol and Drug Abuse Patient Records regulations: The Federal rules restrict any use of the information to criminally investigate or prosecute any alcohol or drug abuse patient.[facility] HospitalIn the event this information is protected by the Federal Confidentiality of Alcohol and Drug Abuse Patient Records regulations: The Federal rules restrict any use of the information to criminally investigate or prosecute any alcohol or drug abuse patient.[facility] HospitalIn the event this information is protected by the Federal Confidentiality of Alcohol and Drug Abuse Patient Records regulations: The Federal rules restrict any use of the information to criminally investigate or prosecute any alcohol or drug abuse patient.[facility] HospitalIn the event this information is protected by the Federal Confidentiality of Alcohol and Drug Abuse Patient Records regulations: The Federal rules restrict any use of the information to criminally investigate or prosecute any alcohol or drug abuse patient.[facility] HospitalIn the event this information is protected by the Federal Confidentiality of Alcohol and Drug Abuse Patient Records regulations: The Federal rules restrict any use of the information to criminally investigate or prosecute any alcohol or drug abuse patient.[facility] Reason for Visit (unrecogniz ed section and content) Reason Comments Injections Established Patient Reason Comments Follow Up Reason Comments urine symptoms Reason Comments DUB Reason Comments Covid19 Concern Reason Onset Date Comments Refill Request 09/20/2022 Reason Onset Date Comments Population Health Navigation Outreach 12/26/2022 [facility] Reason Onset Date Comments Population Health Navigation Outreach 02/06/2023 [facility] Reason Comments Patient Question Reason Onset Date Comments Yearly Exam Immunizations 05/26/2023 Flu vaccination Reason Comments Results Reason Comments Results Reason Comments Radiology CT Specialty Diagnoses / Procedures Referred By Contac Referred To Contact CT IMAGING Diagnoses Localized swelling, mass and lump, neck Fatigue, unspecified type Neck pain on left side Procedures CT NECK SOFT TISSUE W IVCON CT SOFT TISSUE NECK W/CONTRAST MATERIAL Pete Morejon L, DO [address] [place] [address] [place] [address] Referral ID Status Reason Start Date Expiration Date V isits Requested Visits Authorized [id number] Closed Auto-Generate d Referral 05/26/2023 06/24/2024 1 1 Reason Comments Future Appointment Specialty Diagnoses / Procedures Referred By Contac t Referred To Contact Pain Management Diagnoses Arthritis of neck DDD (degenerative disc disease), cervical Procedures CONSULT TO PAIN MGT OFFICE/OUTPATIENT [facility] 60-74 MINUTES Pete Morejon, DO [address] [place] [address] Referral ID Status Reason Start Date Expiration Date V isits Requested Visits Authorized [id number] Closed PCP Requested Referral 05/29/2023 05/28/2024 1 1 Reason Onset Date Comments Refill Request 01/26/2024 Reason Comments Same Day Appointment elevated blood pres sure and SOB, h/a, dizzy Reason Comments Follow Up [facility] ER follow up- SO B, elevated BP and elevated HR, Reason Comments Yearly Exam Reason Comments Yearly Exam Reason Comments Radiology CT Specialty Diagnoses / Procedures Referred By Contac t Referred To Contact CT IMAGING Diagnoses SOB (shortness of breath) Procedures CT CHEST WO IVCON DIAGNOSTIC COMPUTED TOMOGRAPHY THORAX W/O CNTRST Pete Morejon, DO [address] [place] [address] [place] [address] Referral ID Status Reason Start Date Expiration Date V isits Requested Visits Authorized [id number] Closed Auto-Generate d Referral 07/30/2024 08/29/2025 1 1 Reason Comments Radiology US Specialty Diagnoses / Procedures Referred By Contac t Referred To Contact US IMAGING Diagnoses Thyroid nodule Procedures US THYROID/PARATHYROID US SOFT TISSUE HEAD & NECK REAL TIME IMGE DOCM Pete Morejon, DO [address] [place] [address] [place] [address] Referral ID Status Reason Start Date Expiration Date V isits Requested Visits Authorized [id number] Closed Auto-Generate d Referral 08/21/2024 09/20/2025 1 1 Reason Comments Results Reason Comments Consult Thyroid Nodule Specialty Diagnoses / Procedures Referred By Contac t Referred To Contact General Surgery Diagnoses Thyroid nodule Procedures CONSULT TO GENERAL SURGERY OFFICE/OUTPATIENT [facility] 60 MINUTES Jon Plasencia APRN.[facility] [address] [place] [address] Phone: tel: fax: Referral ID Status Reason Start Date Expiration Date V isits Requested Visits Authorized [id number] Closed PCP Requested Referral 08/28/2024 08/28/2025 1 1 Reason Comments Procedure Reason Onset Date Comments Results 10/02/2024 [employer] Referral Request 10/02/2024 Reason Comments Patient Update Reason Comments New Patient C/o Tremos in left h and x20 yrs, progressing, tremors all day Specialty Diagnoses / Procedures Referred By Fawn cage Referred To Contact Neurology Diagnoses Tremor Procedures CONSULT TO NEUROLOGY OFFICE/OUTPATIENT NEW HIGH MDM 60 MINUTES Pete Morejon, DO [address] [facility] [place] [address] Phone: tel: fax: Referral ID Status Reason Start Date Expiration Date V isits Requested Visits Authorized [id number] Closed PCP Requested Referral 07/30/2024 07/30/2025 1 1 Care Teams (unrecognized sec tion and content) Foundry Helper Relationship Specialty Start Date End Date Pete Morejon, DO [address] [facility] [place] [address] PCP - General Family Practice 08/04/15 [employer] Relationship Specialty Start Date End Date Pete Morejon DO [address] [facility] [place] [address] PCP - General Family Practice 08/04/15 [employer] Helper Relationship Specialty Start Date End Date Pete Morejon, DO [address] [facility] [place] [address] PCP - General Family Medicine 08/04/15 Foundry Helper Relationship Specialty Start Date End Date Pete Morejon, DO [address] [facility] [place] [address] PCP - General Family Medicine 08/04/15 Foundry Helper Relationship Specialty Start Date End Date Pete Morejon DO [address] [facility] [place] [address] PCP - General Family Medicine 08/04/15 Foundry Helper Relationship Specialty Start Date End Date Pete Morejon DO [address] [facility] [place] [address] PCP - General Family Medicine 08/04/15 Foundry Helper Relationship Specialty Start Date End Date Pete Morejon, DO [address] [facility] [address] PCP - General Family Medicine 08/04/15 Foundry Helper Relationship Specialty Start Date End Date Pete Morejon DO [address] [place] [address] PCP - General Family Medicine 08/04/15 Foundry Helper Relationship Specialty Start Date End Date Pete Morejon DO [address] [facility] [place] [address] PCP - General Family Medicine 08/04/15 Foundry Helper Relationship Specialty Start Date End Date Pete Morejon DO [address] [facility] [place] [address] PCP - General Family Medicine 08/04/15 Foundry Helper Relationship Specialty Start Date End Date Pete Morejon DO [address] [place] [address] PCP - General Family Medicine 08/04/15 Foundry Helper Relationship Specialty Start Date End Date Pete Morejon DO [address] [place] [address] PCP - General Family Medicine 08/04/15 Foundry Helper Relationship Specialty Start Date End Date Pete Morejon DO [address] [facility] [place] [address] PCP - General Family Medicine 08/04/15 Foundry Helper Relationship Specialty Start Date End Date Pete Morejon DO [address] [facility] [place] [address] PCP - General Family Medicine 08/04/15 Foundry Helper Relationship Specialty Start Date End Date Pete Morejon, [address] [place] [address] PCP - General Family Medicine 08/04/15 [employer]ry Helper Relationship Specialty Start Date End Date Pete Morejon, [address] [place] [address] PCP - General Family Medicine 08/04/15 Foundry Helper Relationship Specialty Start Date End Date Pete Morejon DO [address] [place] [address] PCP - General Family Medicine 08/04/15 Foundry Helper Relationship Specialty Start Date End Date Pete Morejon DO [address] [place] [address] PCP - General Family Medicine 08/04/15 Foundry Helper Relationship Specialty Start Date End Date Pete Morejon DO [address] [place] [address] PCP - General Family Medicine 08/04/15 Foundry Helper Relationship Specialty Start Date End Date Pete Morejon DO [address] [place] [address] PCP - General Family Medicine 08/04/15 Foundry Helper Relationship Specialty Start Date End Date Pete Morejon DO [address] [place] [address] PCP - General Family Medicine 08/04/15 Foundry Helper Relationship Specialty Start Date End Date Pete Morejon DO [address] [place] [address] PCP - General Family Medicine 08/04/15 Foundry Helper Relationship Specialty Start Date End Date Pete Morejon DO [address] [place] [address] PCP - General Family Medicine 08/04/15 Foundry Helper Relationship Specialty Start Date End Date Pete Morejon DO [address] [place] [address] PCP - General Family Medicine 08/04/15 Foundry Helper Relationship Specialty Start Date End Date Pete Morejon DO [address] [place] [address] PCP - General Family Medicine 08/04/15 Foundry Helper Relationship Specialty Start Date End Date Pete Morejon DO [address] [facility] [place] [place] [address] PCP - General Family Medicine 08/04/15 Foundry Helper Relationship Specialty Start Date End Date Pete Morejon DO [address] [facility] [address] PCP - General Family Medicine 08/04/15 Luna Bruce, MOLD MAINTENANCE TECHNICIAN.WOLF HUNTER [address] [facility] [place] [place] [address] Division Field Inspector Family Medicine 06/30/24 Jon Plasencia, MOLD MAINTENANCE TECHNICIAN.WOLF HUNTER [address] [facility] [place] [address] Division Field Inspector Family Medicine 06/30/24 Foundry Helper Relationship Specialty Start Date End Date Pete Morejon DO [address] [facility] [place] [address] PCP - General Family Medicine 08/04/15 Luna Bruce, MOLD MAINTENANCE TECHNICIAN.WOLF HUNTER [address] [place] [address] Division Field Inspector Family Medicine 06/30/24 Jon Plasencia, MOLD MAINTENANCE TECHNICIAN.WOLF HUNTER [address] [place] [address] Division Field Inspector Family [facility] 06/30/24 Foundry Helper Relationship Specialty Start Date End Date Pete Morejon DO [address] [place] [address] PCP - General Family Medicine 08/04/15 Luna Bruce, MOLD MAINTENANCE TECHNICIAN.WOLF HUNTER [address] [place] [address] Division Field Inspector Family Medicine 06/30/24 Jon Plasencia, MOLD MAINTENANCE TECHNICIAN.WOLF HUNTER [address] [place] [address] [facility] 06/[facility]/24 Foundry Helper Relationship Specialty Start Date End Date Pete Morejon DO [address] [place] [address] PCP - General Family Medicine 08/04/15 Luna Bruce, MOLD MAINTENANCE TECHNICIAN.WOLF HUNTER [address] [place] [address] Division Field Inspector Family Medicine 06/30/24 Jon Plasencia, MOLD MAINTENANCE TECHNICIAN.WOLF HUNTER [address] [place] [address] Division Field Inspector Family Medicine 06/30/24 Foundry Helper Relationship Specialty Start Date End Date Pete Morejon DO [address] [facility] [place] [place] [address] PCP - General Family Medicine 08/04/15 Luna Bruce, MOLD MAINTENANCE TECHNICIAN.WOLF HUNTER [address] [facility] [place] [address] Division Field Inspector Family [facility] 06/30/24 [facility] MOLD MAINTENANCE TECHNICIAN.WOLF HUNTER [address] [facility] [place] [address] [facility] 06/30/24 Foundry Helper Relationship Specialty Start Date End Date Pete Morejon DO [address] [facility] [place] [address] PCP - General Family Medicine 08/04/15 Luna Bruce, MOLD MAINTENANCE TECHNICIAN.WOLF HUNTER [address] [facility] [place] [address] Division Field Inspector [facility] 06/30/24 Luis AngelJon, MOLD MAINTENANCE TECHNICIAN.WOLF HUNTER [address] [facility] [place] [address] [facility] 06/30/24 Foundry Helper Relationship Specialty Start Date End Date Pete Morejon DO [address] [facility] [place] [address] PCP - General Family Medicine 08/04/15 Luna Bruce, MOLD MAINTENANCE TECHNICIAN.WOLF HUNTER [address] [facility] [place] [address] Division Field Inspector Family [facility] 06/30/24 Luis AngelJon, MOLD MAINTENANCE TECHNICIAN.WOLF HUNTER [address] [place] [address] [facility] 06/30/24 Foundry Helper Relationship Specialty Start Date End Date Pete Morejon DO [address] [place] [address] PCP - General Family Medicine 08/04/15 Luna Bruce, MOLD MAINTENANCE TECHNICIAN.WOLF HUNTER [address] [place] [address] Division [facility] 06/30/24 Jon Plasencia, MOLD MAINTENANCE TECHNICIAN.WOLF HUNTER [address] [place] [address] [facility] 06/30/24 Foundry Helper Relationship Specialty Start Date End Date Pete Morejon DO [address] [place] [address] PCP - General Family Medicine 08/04/15 Luna Bruce, MOLD MAINTENANCE TECHNICIAN.WOLF HUNTER [address] [place] [address] Division [facility] 06/30/24 Jon Plasencia, MOLD MAINTENANCE TECHNICIAN.WOLF HUNTER [address] [place] [address] Division [facility] 06/30/24 Foundry Helper Relationship Specialty Start Date End Date Pete Morejon DO [address] [place] [address] PCP - General Family Medicine 08/04/15 Luna Bruce, MOLD MAINTENANCE TECHNICIAN.WOLF HUNTER [address] [place] [address] Division Field Inspector Family Medicine 06/30/24 Jon Plasencia, MOLD MAINTENANCE TECHNICIAN.WOLF HUNTER [address] [place] [address] Division Field Inspector Family Medicine 06/30/24 Foundry Helper Relationship Specialty Start Date End Date Pete Morejon DO [address] [place] [address] PCP - General Family Medicine 08/04/15 Luna Bruce, MOLD MAINTENANCE TECHNICIAN.WOLF HUNTER [address] [place] [address] Division Field Inspector Family Medicine 06/30/24 Jon Plasencia, MOLD MAINTENANCE TECHNICIAN.WOLF HUNTER [address] [place] [address] [facility] 06/30/24 Foundry Helper Relationship Specialty Start Date End Date Pete Morejon DO [address] [place] [address] PCP - General Family Medicine 08/04/15 Luna Bruce, MOLD MAINTENANCE TECHNICIAN.WOLF HUNTER [address] [place] [address] Division Field Inspector Family Medicine 06/30/24 Jon Plasencia, MOLD MAINTENANCE TECHNICIAN.WOLF HUNTER [address] [place] [address] Division Field Inspector Family [facility] 06/30/24 Foundry Helper Relationship Specialty Start Date End Date Pete Morejon DO [address] [place] [address] PCP - General Family Medicine 08/04/15 Luna Bruce, MOLD MAINTENANCE TECHNICIAN.WOLF HUNTER [address] [place] [address] Division Field Inspector Family Medicine 06/30/24 Jon Plasencia, MOLD MAINTENANCE TECHNICIAN.WOLF HUNTER [address] [place] [address] Division Field Inspector Family Medicine 06/30/24 Foundry Helper Relationship Specialty Start Date End Date Pete Morejon DO [address] [place] [address] PCP - General Family Medicine 08/04/15 Luna Bruce, MOLD MAINTENANCE TECHNICIAN.WOLF HUNTER [address] [place] [address] Division Field Inspector Family Medicine 06/30/24 Jon Plasencia, MOLD MAINTENANCE TECHNICIAN.WOLF HUNTER [address] [place] [address] [facility] 06/30/24 Foundry Helper Relationship Specialty Start Date End Date Pete Morejon DO [address] [place] [address] PCP - General Family Medicine 08/04/15 Luna Bruce, MOLD MAINTENANCE TECHNICIAN.WOLF HUNTER [address] [place] [address] Division Field Inspector Family Medicine 06/30/24 Jon Plasencia, MOLD MAINTENANCE TECHNICIAN.WOLF HUNTER [address] [place] [address] Division Field Inspector Family Medicine 06/30/24 Foundry Helper Relationship Specialty Start Date End Date Pete Morejon DO [address] [facility] [place] [address] PCP - General Family Medicine 08/04/15 Luna Bruce, MOLD MAINTENANCE TECHNICIAN.WOLF HUNTER [address] [facility] [place] [address] Division Field Inspector Family Medicine 06/30/24 [facility], MOLD MAINTENANCE TECHNICIAN.WOLF HUNTER [address] [facility] [place] [address] Division [facility] 06/30/24 Foundry Helper Relationship Specialty Start Date End Date Pete Morejon DO [address] [place] [address] PCP - General Family Medicine 08/04/15 Luis AngelJon, MOLD MAINTENANCE TECHNICIAN.WOLF HUNTER [address] [place] [address] [facility] 06/30/24 Foundry Helper Relationship Specialty Start Date End Date Pete Morejon DO [address] [facility] [place] [address] PCP - General Family Medicine 08/04/15 [facility], MOLD MAINTENANCE TECHNICIAN.WOLF HUNTER [address] [place] [address] [facility] 06/30/24 Foundry Helper Relationship Specialty Start Date End Date Pete Morejon DO [address] [facility] [place] [address] PCP - General Family Medicine 08/04/15 [facility], MOLD MAINTENANCE TECHNICIAN.WOLF HUNTER [address] [facility] [place] [address] [facility] 06/30/24 Foundry Helper Relationship Specialty Start Date End Date Pete Morejon DO [address] [facility] [place] [address] PCP - [facility] 08/04/15 [facility], MOLD MAINTENANCE TECHNICIAN.WOLF HUNTER [address] [facility] [place] [address] [facility] 06/30/24 Team Status: Active Member Role Status Dates Dr. Pete Morejon DO Primary Care Provider Active Team Status: Inactive Member Role Status Dates Dr. Pete Morejon DO Primary Care Provider Active Start: November 04, 2024 End: November 04, 2024 Dr. Saul Gil MD Attending Provider Active Start: November 04, 2024 End: November 04, 2024 Dr. Saul Gil MD Referring Provider Active Start: November 04, 2024 End: November 04, 2024 Foundry Helper Relationship Specialty Start Date End Date Pete Morejon DO [address] [facility] [place] [address] PCP - [facility] 08/04/15 [facility], MOLD MAINTENANCE TECHNICIAN.WOLF HUNTER [address] [facility] [place] [address] [facility] 06/30/24 Team Status: Inactive Member Role Status Dates Dr. Pete Morejon DO Primary Care Provider Active Start: December 11, 2024 End: December 11, 2024 Dr. Pete Morejon DO Referring Provider Active Start: December 11, 2024 End: December 11, 2024 Dr. Virgil Woody MD Attending Provider Active S tart: December 11, 2024 End: May 21st, 2025 Team Status: Inactive Member Role Status Dates Dr. Pete Morejon , Primary Care Provider Active Start: December 11, 2024 End: December 11, 2024 Dr. Virgil Woody MD Attending Provider Active S tart: December 11, 2024 End: December 11, 2024 Dr. Virgil Woody MD Referring Provider Active S tart: December 11, 2024 End: December 11, 2024 INFORMATION SOURCE (unrecogn ized section and content) DATE CREATED AUTHOR 09/13/2024 [facility] DATE CREATED AUTHOR AUTHOR'S ORGANIZ ATION 12/25/2024 [facility] DATE CREATED AUTHOR AUTHOR'S ORGANIZ ATION 12/31/2024 [facility] Goals (unrecognized section and content) Goals may be documented in a n alternate sectionGoals may be documented in an alternate sectionGoals may be documented in an alternate section FOR RECORDS PERTAINING TO PATIENTS WHO ARE OR HAVE BEEN ENROLLED IN A CHEMICAL DEPENDENCY/SUBSTANCEABUSE PROGRAM, SOME INFORMATION MAY BE OMITTED. This clinical summary was aggregated from multiple sources. Caution should be exercised in using it in the provision of clinical care. This summary normalizes information from multiple sources, and as a consequence, information in this document may materially change the coding, format and clinical context of patient data. In addition, data may be omitted in some cases. CLINICAL DECISIONS SHOULD BE BASED ON THE PRIMARY CLINICAL RECORDS. [employer] provides no warranty or guarantee of the accuracy or completeness of information in this document.
== END | disposition home or self-care (01) ==
LOC: NM 09:48
PROVIDERS: PCP Student in an Organized Health Care Education/Training Program; Referring Provider Internal Medicine Cardiovascular Disease; Visit Provider Internal Medicine Cardiovascular Disease
DX: I34.0 Nonrheumatic mitral (valve) insufficiency (principal)
CPT/HCPCS: 78803; 93306; 93356; A9561

== ENCOUNTER → 2025-01-21 | Outpatient (CLI) | payer MEDICARE, OTHER, SELFPAY ==
--- NOTE | 2025-01-21 12:59 | VDLE_ITS ---
Reason For Study Reason For Study: RLE Swelling RIGHT LEFT GSV is normal. FV is compressible, spontaneous, phasic, competent CFV is compressible, spontaneous, phasic, competent and demonstrates normal augmentation. and demonstrates normal augmentation. FV is compressible, spontaneous, phasic, competent and demonstrates normal augmentation. POP V is compressible, spontaneous, phasic, competent and demonstrates normal augmentation. T/P Trunk is compressible. PTV is compressible. RT PerV is compressible. Procedure This is a venous duplex using B-mode, color flow and spectral Doppler. Exam performed in department. The exam was diagnostic. A preliminary report was called and/or faxed to Susana Pete NP. VL/Venous Duplex US, Unilateral Interpretation Summary Deep veins of the right lower extremity are patent and compressible segmentally . There is no evidence of right lower extremity deep vein thrombosis. The right great saphenous vein appears patent a nd compressible segmentally. Ordering Physician: Susana Pete Referring Physician: Pete George Performed By: Manan Harper RVT
== END | disposition home or self-care (01) ==
LOC: CVS 12:54
PROVIDERS: PCP Student in an Organized Health Care Education/Training Program; Referring Provider Registered Nurse; Visit Provider Registered Nurse
DX: M79.89 Other specified soft tissue disorders (principal)
CPT/HCPCS: 93971

== ENCOUNTER → 2025-01-28 | Outpatient (CLI) | payer MEDICARE, OTHER, SELFPAY ==
--- NOTE | 2025-01-28 13:58 | CT_ITS ---
PROCEDURE: EXTREMITY LOWER WITHOUT CONTRA 01/28/2025 REASON FOR EXAM: CONTUSION OF RIGHT KNEE, INITIAL ENCOUNTER Recent fall. TECHNIQUE: EXTREMITY LOWER WITHOUT CONTRA Coronal and Sagittal reconstruction series were provided. CONTRAST: None One or more dose reduction techniques were used (e.g., Automated exposure control, adjustment of the mA and/or kV according to patient size, use of iterative reconstruction technique). RADIATION DOSE SUMMARY: CTDlvol: 15.66 mGy DLP: 651.76 mGycm COMPARISON: None FINDINGS: The patient is status post right total knee replacement. There is good alignment. There is no evidence of fracture or dislocation. There is evidence of a moderate-sized joint effusion. CT/Extremity Lower without Contra IMPRESSION: The prosthetic knee joint is intact. Moderate-sized joint effusion. Reading Location: [place] [address]
== END | disposition home or self-care (01) ==
LOC: CT 13:48
PROVIDERS: PCP Student in an Organized Health Care Education/Training Program
DX: M25.461 Effusion, right knee (principal); Z96.651 Presence of right artificial knee joint; S80.01XA Contusion of right knee, initial encounter
CPT/HCPCS: 73700

== ENCOUNTER → 2025-04-15 | Outpatient (CLI) | payer MEDICARE, OTHER, SELFPAY ==
[2025-04-15 15:16] LABS: Pro- Brain NATRIURETIC PEPTIDE 1233 pg/mL (<=900)
== END | disposition home or self-care (01) ==
LOC: LAB 13:52
PROVIDERS: PCP Student in an Organized Health Care Education/Training Program; Referring Provider Internal Medicine Cardiovascular Disease; Visit Provider Internal Medicine Cardiovascular Disease
DX: R06.02 Shortness of breath (principal); E85.4 Organ-limited amyloidosis; I43 Cardiomyopathy in diseases classified elsewhere
CPT/HCPCS: 36415; 83880

== ENCOUNTER → 2025-04-22 | Outpatient (CLI) | payer MEDICARE, OTHER, SELFPAY ==
--- OUTSIDE RECORDS SUMMARY | 2025-01-29 11:20 | XMS RPT_ITS ---
Author Name Auto Generated Organization OHIP Care Team Providers Care Respiratory Therapist Name Role Phone PETE MOREJON Primary Care Unavailable NESTOR CROWE Referring Unavailable MOREJONPETE Primary Care Unavailable MOREJONPETE HAIR Attending Unavailable PETE MOREJON Primary Care Unavailable SAVANAH SORIA Referring Unavail able THOM RUIZ Attending Unavailable MOREJONPETE Primary Care Unavailable GAYLE JIMENEZ Attending Unavailable PETE MOREJON Primary Care Unavailable MOREJON, PETE Bridges Referring Unavailable PETE MOREJON Primary Care Unavailable QUEENIE SANDERS Attending Unavailable MOREJON, PETE Yuliana Primary Care Unavailable SAVANAH SORIA Attending Unavail able PETE MOREJON Primary Care Unavailable NESTOR CROWE Referring Unavailable MOREJON, PETE Bridges Primary Care Unavailable MOREJON, PETE Yuliana Referring Unavailable SAUL GIL JR Attending Unavailable MOREJON, PETE Yuliana Primary Care Unavailable SAUL GIL JR Referring Unavailable MOREJON, PETE Yuliana Primary Care Unavailable QUEENIE SANDERS Attending Unavailable MOREJONPETE DESIR Primary Care Unavailable MOREJON, PETE Yuliana Referring Unavailable MOREJON, PETE Yuliana Primary Care Unavailable MOREJON, PETE Yuliana Primary Care Unavailable MOREJON, PETE Yuliana Referring Unavailable MOREJON, PETE Yuliana Primary Care Unavailable JON PLASENCIA Referring Unavailable GAYLE JIMENEZ Attending Unavailable PETE MOREJON Primary Care Unavailable SUSANA PETE Attending Unavailable MOREJON, PETE Bridges Primary Care Unavailable NESTOR CROWE Attending Unavailable MOREJON, PETE Yuliana Primary Care Unavailable NESTOR CROWE Attending Unavailable NIMCO SHORE Attending Unavailable PETE MOREJON Primary Care Unavailable PETE MOREJON Primary Care Unavailable NIMCO SHORE Referring Unavailable MOREJON PETE Yuliana Primary Care Unavailable QUEENIE SANDERS Referring Unavailable PETE MOREJON Primary Care Unavailable PETE MOREJON Referring Unavailable PETE MOREJON Primary Care Unavailable PETE MOREJON Referring Unavailable PETE MOREJON Primary Care Unavailable SUSANA PETE Attending Unavailable PROBLEMS DATE TYPE CONDITION / CODE ATTENDING STATUS [facility] 07/19/2021 Active Tremor / R25.1(ICD-10) MAKENZIE SANDERS Active [facility] 01/29/2025 Active History of traum atic brain injury / Z87.820(ICD-10) QUEENIE SANDERS Active [facility] 01/29/2025 Active Diplopia / H53.2(ICD-10) QUEENIE SANDERS Active [facility] 01/29/2025 Active Incoordination / R27.9(ICD-10) QUEENIE SANDERS Active [facility] 01/29/2025 Active Abnormality of g ait / R26.9(ICD-10) QUEENIE SANDERS Active [facility] 01/22/2025 Active Cellulitis of sk in / L03.90(ICD-10) SUSANA PETE Active [facility] 01/09/2025 Active Right knee injur y, initial encounter / S89.91XA(ICD-10) NIMCO SHORE Active [facility] 01/09/2025 Active Abrasion, right knee, initial encounter / S80.211A(ICD-10) NIMCO SHORE Active [facility] 01/09/2025 Active Acute pain of ri ght knee / M25.561(ICD-10) NIMCO SHORE Active [facility] 01/09/2025 Active Presence of righ t artificial knee joint / Z96.651(ICD-10) NIMCO SHORE Active [facility] 01/09/2025 Active Fall on same lev el from slipping, tripping and stumbling without subsequent striking against object, initial encounter / W01.0XXA(ICD-10) NIMCO SHORE Active [facility] 10/21/2024 Active 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) SAUL GIL JR Active [facility] 10/21/2024 Active Claustrophobia / F40.240(ICD-10) SAUL GIL JR Active [facility] 09/09/2024 Active Abnormal ultraso und of thyroid gland / R93.89(ICD-10) SONIAGAYLE Active [facility] 09/02/2024 Active Thyroid nodule / E04.1(ICD-10) SONIAGAYLE Active [facility] 08/26/2024 Active Abnormal echocar diogram / R93.1(ICD-10) NA Active [facility] 08/26/2024 Active 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) Active [facility] 08/26/2024 Active Cardiac amyloido sis (HCC) / I43(ICD-10) NA Active [facility] 07/30/2024 Active SOB (shortness o f breath) / R06.02(ICD-10) NA Active [facility] 04/28/2021 Active LVH (left ventri cular hypertrophy) / I51.7(ICD-10) NA Active [facility] 04/23/2018 Active Hypertension, es sential / I10(ICD-10) NA Active [facility] 04/23/2018 Active Dyslipidemia / E78.5(ICD-10) NA Active [facility] 08/09/2024 Active Encounter for sc reening colonoscopy / Z12.11(ICD-10) THOM RUIZ Active [facility] 08/09/2024 Active Screening for co carmen cancer / Z12.11(ICD-10) THOM RUIZ Active [facility] 05/26/2023 Active Vitamin B12 defi ciency / E53.8(ICD-10) NA Active [facility] 03/30/2022 Active Vitamin D defici ency / E55.9(ICD-10) NA Active [facility] 04/28/2021 Active Hyperlipidemia, mixed / E78.2(ICD-10) NA Active [facility] 04/19/2017 Active IFG (impaired fa sting glucose) / R73.01(ICD-10) NA Active [facility] 07/23/2024 Active Dizziness / R42(ICD-10) NA Activ e [facility] 07/19/2024 Active Bacterial pneumo deborah / J15.9(ICD-10) NA Active [facility] 05/28/2024 Active Pneumonia of lef t lower lobe due to infectious organism / J18.9(ICD-10) NESTOR CROWE Active [facility] 04/30/2024 Active Encounter for sc reening mammogram for malignant neoplasm of breast / Z12.31(ICD-10) NA Active [facility] PROCEDURES No Procedure Records Found RESULTS PROGRESS Observed: 02/12/2025 8:41 AM Status: COMPLETED Source: [facility] HNO ID: [id number] Author: ZOFIA BULLARD MA Service: ? Author Type: Crusher Machine Operator Type: Progress Notes Filed: 02/12/2025 08:42 Note Text: POPULATION HEALTH NAVIGATION OUTREACH Action/I Chart review only Reason for Outreach Care Gap/HCC or Scheduling Wellness Visits Care Gaps due: N/A Patient Contacted: Unable or unnecessary to reach patient: Chart Review only Navigation Signature: Zofia Bullard MA February 12, 2025 8:41 AM CNPTOUTREACH Observed: 02/12/2025 12:00 AM Status: COMPLETED Source: [facility] Patient Outreach (NETNAV) MARY REYES ([id number]) 1950 F Date Time Provider Department 02/12/25 ZOFIA BULLARD During your visit today, we recorded the following information about you: Zofia Bullard MA 02/12/2025 8:42 AM Signed POPULATION HEALTH NAVIGATION OUTREACH Action/FYI Chart review only Reason for Outreach Care Gap/HCC or Scheduling Wellness Visits Care Gaps due: N/A Patient Contacted: Unable or unnecessary to reach patient: Chart Review only Navigation Signature: Zofia JEANNIE Bullard February 12, 2025 8:41 AM Allergies As of Date: 02/12/2025 Noted Allergy Reaction VICODIN (HYDROCODONE-ACETAMINOPHE*03/25/2011 2 - Rash VIOXX (ROFECOXIB) 03/18/2005 8 - GI Upset Date Reviewed: 01/29/2025 Reviewed by: Queenie Sanders APRN.INTERMISSION COORDINATOR - Fully Assessed Reason for Visit: Population Health Navigation Outreach [3910] Cmt: Bud/Workbench/ACO Prescriptions as of 02/12/2025 - primidone (MYSOLINE) 50 mg tablet Take 1 tablet by mouth daily at bedtime. - metoprolol succinate ER (TOPROL XL) 50 mg 24 hr tablet Take 1 tablet by mouth once daily. - cholecalciferol, vitamin D3, (D3-2000 ORAL) Take by mouth. - cyanocobalamin (VITAMIN B-12) 1,000 mcg tab Take 1,000 mcg by mouth once daily. - triamcinolone acetonide (KENALOG) 0.5 % cream Apply to affected area three times a day. - vit A,C,X-Xxmz-Uoiqgm (PRESERVISION AREDS) 2,148 mcg-113 mg-45 mg-17.4mg tab [...] once daily. 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 Author Type: Nurse Practitioner Type: Progress Notes Filed: 01/29/2025 11:58 Note Text: [facility] [place] Follow-up Visit Follow-up note This visit was conducted via virtual platform. I have communicated my name and active licensure. The patient's identity and physical location were verified at the time of this visit. Either the patient or their legal jewelry sales representative has been informed of the risks and benefits of -- and alternatives to -- treatment through a remote evaluation and consents to proceed with the evaluation remotely. January 29, 2025 HPI: Ms. Reyes presents today for a follow-up visit. Per her previous visit on 12/10/24: R25.1 Tremor (primary encounter diagnosis) Z87.820 History of traumatic brain injury H53.2 Diplopia R27.9 Incoordination R26.9 Abnormality of gait Comment: Pt previously seen for chronic neurological deficits associated with past TBI with reported brainstem injury. At time of previous appointment she was noted to have postural head tremor. 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 EEG was unremarkable. MRI brain demonstrating chronic insult along R dorsal midbrain and associated volume loss of R superior cerebellar peduncle. 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 Findings would be consistent with previously reported history of TBI. Of note, she is currently taking ASA 81 mg. EEG without evidence of epileptiform discharges/seizure activity. Given no acute findings on imaging, discussed initiating medication to attempt to treat tremor. At this time we will begin primidone 25 mg daily at bedtime (noting pt already on BB). SE reviewed. She is aware that she should notify the office if she experiences SE. Should symptoms persist and no SE, she may notify the office at which time medication may be increased prior to time of follow-up. Updated CMP ordered; last result with normal hepatic fcn in 12/14. She will follow-up in 6 to 8 weeks or sooner should new or changing symptoms occur. Feels she has seen some improvement in tremor. States there has been a lot going on. Has been having increased stress and health concerns. Did fall three weeks ago. Had imaging completed. Starting to feel better. Has been stressful which brings on more of a tremor. Did not hit her head, hit her knee which was a replacement. Overall feels tremor is slightly less. Could carry a glass of water easier. Did not increase primidone because she was on Tylenol with codeine after the fall. Then started meloxicam. Then there was a question about cellulitis and was on an antibiotic for some time. Now off of all medications except meloxicam. No side effects from the primidone. No other new neurological changes. PAST MEDICAL HISTORY Diagnosis Date Arthritis left knee, back Chronic kidney disease, stage 3a (HCC) 05/26/2023 Complication of anesthesia N/V DDD (degenerative disc disease), lumbar Diulus, Haney Diverticulosis of colon (without mention of hemorrhage) [...] PROSTC AGRFT/ALGRFT Left 03/27/[address] [facility], [facility] KNE CONDYLEANDPLATU MEDIALANDLAT COMPARTMENTS 10/04/10 Knee replacement, total Knee ARTHRP KNE CONDYLEANDPLATU MEDIALANDLAT COMPARTMENTS Right 10/01/2018 Dr. Mata, [facility] COLONOSCOPY FLX DX W/COLLJ SPEC WHEN PFRMD 06/02/04 Repeat in COLONOSCOPY FLX DX W/COLLJ SPEC WHEN PFRMD 06/23/14 no polyps EYE SURGERY HX 06/27/14 left laeral rectus recession-strabismus F SI JOINT INJECTION 7/12/12 LIG/TRNSXJ FLP TUBE ABDL/VAG APPR UNI/BI 1982 Tubal ligation NEUROPLASTY AND/TRANSPOS MEDIAN NRV CARPAL TUNNE 09/2000 Carpal tunnel decomp LEFT PAST SURGICAL HISTORY OF 1988 LEFT EYE, strabismus repair after injury PAST SURGICAL HISTORY OF 1970 skull fracture (ice skating) Current Outpatient Medications on File Prior to Visit Medication Sig mupirocin (BACTROBAN) 2 % ointment Apply 1 application to affected area three times a day for 10 days. primidone (MYSOLINE) 50 mg tablet Take 1 tablet by mouth daily at bedtime. LORazepam (ATIVAN) 0.5 mg Take 1 tablet 30 minutes prior to MRI. If needed can take additional 1 tablet at time of MRI. Please do not drive or operate heavy machinery on the day of taking the Ativan. metoprolol succinate ER (TOPROL XL) 50 mg 24 hr tablet Take 1 tablet by mouth once daily. cholecalciferol, vitamin D3, (D3-2000 ORAL) Take by mouth. cyanocobalamin (VITAMIN B-12) 1,000 mcg tab Take 1,000 mcg by mouth once daily. triamcinolone acetonide (KENALOG) 0.5 % cream Apply to affected area three times a day. vit A,C,U-Ptzq-Azxave (PRESERVISION AREDS) 2,148 mcg-113 mg-45 mg-17.4mg tab [...] mouth once daily. No current facility-administered medications on file prior to visit. Social History Tobacco Use Smoking status: Never Smokeless tobacco: Never Vaping Use Vaping status: Never Used Substance Use Topics Alcohol use: Yes Comment: 6 per year Drug use: No ALLERGIES Allergen Reactions Vicodin [Hydrocodon* Rash Vioxx [Rofecoxib] GI Upset Review of Systems: Cardiopulmonary: denies chest pain, palpitations Respiratory: denies shortness of breath GI/: denies recent nausea, vomiting, diarrhea, constipation, incontinence Musculoskeletal: denies weakness, joint ache/pain Back/spine: denies low back or cervical pains Neuro: denies tremors, loss of feeling, dizziness, seizure, blackout, paresthesia, facial paresthesia, facial weakness, difficulty in speech, slurring of words, dysarthria, dysphagia, memory loss, headache, vision changes, loss of hearing Physical Exam: There were no vitals filed for this visit. Patient is alert and in no distress. Dress is appropriate. Mood is appropriate Breathing appears regular and unstressed Neurologic examination: Exam is observational at best. General Appearance: well appearing, in no acute distress Mental status evaluation during the interview and examination showed normal level of consciousness, orientation, language, memory, praxis, and higher intellectual function Affect: Normal Speech: normal Cranial Nerves: III, IV, -EOMI: full. VII-face is symmetric without evidence of weakness. VIII-hearing intact. XII-tongue protrudes midline with normal movements. Labs/studies: Latest Ref Rng 12/24/2024 Protein, Total 6.3 - 8.0 g/dL 6.6 Albumin 3.9 - 4.9 g/dL 3.6 (L) Calcium 8.5 - 10.2 mg/dL 9.2 Bilirubin, Total 0.2 - 1.3 mg/dL 1.1 Alkaline Phosphatase 34 - 123 U/L 68 AST 13 - 35 U/L 14 ALT 7 - 38 U/L 17 Glucose 74 - 99 mg/dL 110 (H) BUN 7 - 21 mg/dL 13 Creatinine 0.58 - 0.96 mg/dL 0.90 Sodium 136 - 144 mmol/L 139 Potassium 3.7 - 5.1 mmol/L 4.2 Chloride 98 - 107 mmol/L 102 CO2 22 - 30 mmol/L 25 Anion Gap 8 - 15 mmol/L 12 eGFR >=60 mL/min/1.73m? 67 Legend: (L) Low (H) High EEG 11/05/24: MRI Report MRI BRAIN WO IVCON Exam End: 10/31/2024 11:23 AM (Final result) Narrative: * * *Final Report* * * DATE OF EXAM: Oct 31 2024 11:15AM SONYAYonathan [id number] - MRI BRAIN WO IVCON / [...] orbits and extracranial soft tissues are unremarkable. Impression: IMPRESSION: No acute intracranial abnormality. Small parenchymal [...] component of superimposed neurodegenerative process not excluded. Vaccine Key Customer Leader: REVA Transcribe Date/Time: Oct 31 2024 12:28P Dictated by : GEOFF HAMILTON MD This examination was interpreted and the report reviewed and electronically signed by: GEOFF HAMILTON MD on Oct 31 2024 2:52PM EST Assessment/Plan: R25.1 Tremor (primary encounter diagnosis) Z87.820 History of traumatic brain injury H53.2 Diplopia R27.9 Incoordination R26.9 Abnormality of gait Comment: Pt previously seen for chronic neurological deficits associated with past TBI with reported brainstem injury. Notably she was experiencing a postural head tremor which was felt to be essential in nature. Previous testing including MRI brain and EEG completed; findings consistent with known hx of TBI. Given no acute findings on imaging, primidone was initiated for management of tremor. She is currently taking taking 25mg daily at bedtime (in addition to previously prescribed BB). At time of appointment today, she reports slight improvement in tremor. She did not increase dose due to recent initiation of other medications following a fall (knee injury). She denies SE with medication. At this time willincrease dose to 50mg QHS. She will monitor for SE. If SE occur can consider splitting dose. She will update the office in roughly two weeks after increasing dose. No orders found for this visit on 01/29/25. Queenie Sanders APRN.JOYCE I spent a total of 15 minutes on the date of the service which included preparing to see the patient, [id number] patient care, completing clinical documentation, obtaining and/or reviewing separately obtained history, performing a medically appropriate examination, counseling and educating the patient/family/caregiver, and ordering medications, tests, or procedures. PROGRESS Observed: 01/22/2025 3:25 PM Status: COMPLETED Source: [facility] HNO ID: [id number] Author: SUSANA PETE APRN.JOYCE Service: ? Author Type: Nurse Practitioner Type: Progress Notes Filed: 01/22/2025 17:48 Note Text: This is a 74 year old female who presents today with: Patient presents with: Recheck: 2 day follow up HISTORY OF PRESENT ILLNESS: Mary Reyes is a 74 year old female. Patient presents with: Recheck: 2 day follow up Pt. is here today for a follow up on possible right lower leg cellulitis, day two of being on antibiotic (clindamycin 7- day) Pt is currently taking antibiotic and tolerating well, states the pain is less compared to 2 days ago, but still has aches on the leg that improves when moving around but sitting constantly or being in one position causes pain. Pt noticed swelling on the right foot, has not noted any further changes in the leg. No worsening of sign and symptoms of infection at this visit- redness or pain. Pt. denies fevers, chills, sob, chest pain, and palpitation. Ultrasound yesterday negative for DVT. Has an upcoming CT per ortho. PAST MEDICAL HISTORY: PAST MEDICAL HISTORY Diagnosis Date Arthritis left knee, back Chronic kidney disease, stage 3a (HCC) 05/26/2023 Complication of anesthesia N/V DDD (degenerative disc disease), lumbar Diulus, Haney Diverticulosis of colon (without mention of hemorrhage) [...] PROSTC AGRFT/ALGRFT Left 03/27/[address] [facility], [facility] KNE CONDYLEANDPLATU MEDIALANDLAT COMPARTMENTS 10/04/10 Knee replacement, total Knee ARTHRP KNE CONDYLEANDPLATU MEDIALANDLAT COMPARTMENTS Right 10/01/2018 Dr. Mata, [facility] COLONOSCOPY FLX DX W/COLLJ SPEC WHEN [...] [Rofecoxib] MEDICATIONS Current Outpatient Medications Medication Sig clindamycin (CLEOCIN HCL) 300 mg capsule Take 1 capsule by mouth three times a day for 7 days. primidone (MYSOLINE) 50 mg tablet Take 1 tablet by mouth daily at bedtime. metoprolol succinate ER (TOPROL XL) 50 mg 24 hr tablet Take 1 tablet by mouth once daily. cholecalciferol, vitamin D3, (D3-2000 ORAL) Take by mouth. cyanocobalamin (VITAMIN B-12) 1,000 mcg tab Take 1,000 mcg by mouth once daily. triamcinolone acetonide (KENALOG) 0.5 % cream Apply to affected area three times a day. vit A,C,H-Zudl-Msyirg (PRESERVISION AREDS) 2,148 mcg-113 mg-45 mg-17.4mg tab [...] No current facility-administered medications for this visit. FAMILY HISTORY Problem Relation Age of Onset Heart Mother atrial fibrilation/diverticulitis/osteoporosis Stroke Father Breast Cancer Maternal Grandmother Stroke Maternal Grandmother Stroke Paternal Grandfather Heart Brother Social History Tobacco Use Smoking status: Never Smokeless tobacco: Never Vaping Use Vaping status: Never Used Substance Use Topics Alcohol use: Yes Comment: 6 per year Drug use: No EXAM: BP 114/72 Pulse 67 Resp 16 SpO2 95% PHYSICAL EXAM: General Appearance: Well appearing, alert, in no acute distress, well-hydrated, well nourished.. Skin: Skin color, texture, turgor normal, no suspicious rashes or lesions. Lungs: Lungs clear to auscultation. No wheezing, rhonchi, rales.. Heart: RRR without murmur, gallop, or rubs. No ectopy. Abdomen: Abdomen soft, non-tender. Bowel sounds normal. No masses, organomegaly. Extremities: No deformities, positive for edema right lower leg , skin discoloration,Good capillary refill. Positive findings: bruises, redness Neurologic: Gait normal. Sensation grossly intact. ASSESSMENT/PLAN: 1. Cellulitis of skin - ICD9: 682.9, ICD10: L03.90 - Continue treatment with Clindamycin -Wrap leg with aurora wraps to decrease swelling - Pt. can put heat or ice pack which ever is more tolerable -Recommended to continue taking the pain medications (meloxicam), -Recline/ elevate legs for comfort and swelling - If S AND S is persistent and worsen, go to the ER- fever, chills, increased in redness and edema on the leg. Discussed treatment plan and patient voices understanding. Patient's questions answered appropriately. Medications and potential side effects were discussed and patient voices understanding. Return to the office as scheduled or as needed for worsening/no improvement. Susana Pete APRN.CNP CNOV Observed: 01/22/2025 3:20 PM Status: COMPLETED Source: [facility] MARY REYES ([id number]) 1950 F Date Time Provider Department 01/22/25 3:20 PM SUSANA PETE During your visit today, we recorded the following information about you: Pulse Respiration Blood pressure 67/minute 16/minute 114/72 Susana Pete APRN.CNP 01/22/2025 5:48 PM Signed This is a 74 year old female who presents today with: Patient presents with: Recheck: 2 day follow up HISTORY OF PRESENT ILLNESS: Mary Reyes is a 74 year old female. Patient presents with: Recheck: 2 day follow up Pt. is here today for a follow up on possible right lower leg cellulitis, day two of being on antibiotic (clindamycin 7- day) Pt is currently taking antibiotic and tolerating well, states the pain is less compared to 2 days ago, but still has aches on the leg that improves when moving around but sitting constantly or being in one position causes pain. Pt noticed swelling on the right foot, has not noted any further changes in the leg. No worsening of sign and symptoms of infection at this visit- redness or pain. Pt. denies fevers, chills, sob, chest pain, and palpitation. Ultrasound yesterday negative for DVT. Has an upcoming CT per ortho. PAST MEDICAL HISTORY: PAST MEDICAL HISTORY Diagnosis Date Arthritis left knee, back Chronic kidney disease, stage 3a (HCC) 05/26/2023 Complication of anesthesia N/V DDD (degenerative disc disease), lumbar Diulus, Haney Diverticulosis of colon (without mention of hemorrhage) [...] PROSTC AGRFT/ALGRFT Left 03/27/[address] [facility], [facility] KNE CONDYLEANDPLATU MEDIALANDLAT COMPARTMENTS 10/04/10 Knee replacement, total Knee ARTHRP KNE CONDYLEANDPLATU MEDIALANDLAT COMPARTMENTS Right 10/01/2018 Dr. Mata, [facility] COLONOSCOPY FLX DX W/COLLJ SPEC WHEN PFRMD 06/02/04 Repeat in -2013 COLONOSCOPY FLX DX W/COLLJ SPEC WHEN PFRMD [...] [Rofecoxib] MEDICATIONS Current Outpatient Medications Medication Sig clindamycin (CLEOCIN HCL) 300 mg capsule Take 1 capsule by mouth three times a day for 7 days. primidone (MYSOLINE) 50 mg tablet Take 1 tablet by mouth daily at bedtime. metoprolol succinate ER (TOPROL XL) 50 mg 24 hr tablet Take 1 tablet by mouth once daily. cholecalciferol, vitamin D3, (D3-2000 ORAL) Take by mouth. cyanocobalamin (VITAMIN B-12) 1,000 mcg tab Take 1,000 mcg by mouth once daily. triamcinolone acetonide (KENALOG) 0.5 % cream Apply to affected area three times a day. vit A,C,X-Xkgq-Azqnho (PRESERVISION AREDS) 2,148 mcg-113 mg-45 mg-17.4mg tab [...] No current facility-administered medications for this visit. FAMILY HISTORY Problem Relation Age of Onset Heart Mother atrial fibrilation/diverticulitis/osteoporosis Stroke Father Breast Cancer Maternal Grandmother Stroke Maternal Grandmother Stroke Paternal Grandfather Heart Brother Social History Tobacco Use Smoking status: Never Smokeless tobacco: Never Vaping Use Vaping status: Never Used Substance Use Topics Alcohol use: Yes Comment: 6 per year Drug use: No EXAM: BP 114/72 Pulse 67 Resp 16 SpO2 95% PHYSICAL EXAM: General Appearance: Well appearing, alert, in no acute distress, well-hydrated, well nourished.. Skin: Skin color, texture, turgor normal, no suspicious rashes or lesions. Lungs: Lungs clear to auscultation. No wheezing, rhonchi, rales.. Heart: RRR without murmur, gallop, or rubs. No ectopy. Abdomen: Abdomen soft, non-tender. Bowel sounds normal. No masses, organomegaly. Extremities: No deformities, positive for edema right lower leg , skin discoloration,Good capillary refill. Positive findings: bruises, redness Neurologic: Gait normal. Sensation grossly intact. ASSESSMENT/PLAN: 1. Cellulitis of skin - ICD9: 682.9, ICD10: L03.90 - Continue treatment with Clindamycin -Wrap leg with aurora wraps to decrease swelling - Pt. can put heat or ice pack which ever is more tolerable -Recommended to continue taking the pain medications (meloxicam), -Recline/ elevate legs for comfort and swelling - If S AND S is persistent and worsen, go to the ER- fever, chills, increased in redness and edema on the leg. Discussed treatment plan and patient voices understanding. Patient's questions answered appropriately. Medications and potential side effects were discussed and patient voices understanding. Return to the office as scheduled or as needed for worsening/no improvement. Susana Pete APRN.INTERMISSION COORDINATOR Allergies As of Date: 01/22/2025 Noted Allergy Reaction VICODIN (HYDROCODONE-ACETAMINOPHE*03/25/2011 2 - Rash VIOXX (ROFECOXIB) 03/18/2005 8 - GI Upset Date Reviewed: 01/22/2025 Reviewed by: Madi Garcia LPN - Fully Assessed Reason for Visit: Recheck [92] Cmt: 2 day follow up Primary Visit Diagnosis:Cellulitis of skin [L03.90] Prescriptions as of 01/22/2025 - clindamycin (CLEOCIN HCL) 300 mg capsule Take 1 capsule by mouth three times a day for 7 days. - primidone (MYSOLINE) 50 mg tablet Take 1 tablet by mouth daily at bedtime. - metoprolol succinate ER (TOPROL XL) 50 mg 24 hr tablet Take 1 tablet by mouth once daily. - cholecalciferol, vitamin D3, (D3-2000 ORAL) Take by mouth. - cyanocobalamin (VITAMIN B-12) 1,000 mcg tab Take 1,000 mcg by mouth once daily. - triamcinolone acetonide (KENALOG) 0.5 % cream Apply to affected area three times a day. - vit A,C,W-Bbdz-Qqogus (PRESERVISION AREDS) 2,148 mcg-113 mg-45 mg-17.4mg tab [...] once daily. 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 Author Type: Nurse Practitioner Type: Progress Notes Filed: 01/20/2025 20:26 Note Text: This is a 74 year old female who presents today with: Patient presents with: Acute Visit: Possible cellulitis R lower leg Denies fever, chills, sob, and chest pain HISTORY OF PRESENT ILLNESS: Mary Reyes is a 74 year old female. Patient presents with: Acute Visit: Possible cellulitis R lower leg O orthopedic sent the pt over to the PCP, Fell on the - completed Xrays at [facility] showed no fractures. Followed up with ortho d/t knee pain and bruising/swelling of the knee. L pain on the right lower extremity began two days ago D intermittent pain, C bruises, tightness, redness, and swelling, 7-8/10 aching pain when first standing A standing in one place for a long period times makes pain worse R recline helps and walking helps T tylenol with codeine did not help much from [facility], ibuprofen helped some,and ice. Ortho recommended pt to take meloxicam BID S pt denies cellulitis the past Bilateral knee replaced in 2019 -redness, bruising, and swelling on the right knee -currently taking pain meds, no open wounds or sore PAST MEDICAL HISTORY: PAST MEDICAL HISTORY Diagnosis Date Arthritis left knee, back Chronic kidney disease, stage 3a (HCC) 05/26/2023 Complication of anesthesia N/V DDD (degenerative disc disease), lumbar Diulus, Haney Diverticulosis of colon (without mention of hemorrhage) [...] PROSTC AGRFT/ALGRFT Left 03/27/[address] Med[facility], [facility] ARTHRP KNE CONDYLEANDPLATU MEDIALANDLAT COMPARTMENTS 10/04/10 Knee replacement, total Knee ARTHRP KNE CONDYLEANDPLATU MEDIALANDLAT COMPARTMENTS Right 10/01/2018 Dr. Mata, [facility] COLONOSCOPY FLX DX W/COLLJ SPEC WHEN [...] [Rofecoxib] MEDICATIONS Current Outpatient Medications Medication Sig primidone (MYSOLINE) 50 mg tablet Take 1 tablet by mouth daily at bedtime. LORazepam (ATIVAN) 0.5 mg Take 1 tablet 30 minutes prior to MRI. If needed can take additional 1 tablet at time of MRI. Please do not drive or operate heavy machinery on the day of taking the Ativan. metoprolol succinate ER (TOPROL XL) 50 mg 24 hr tablet Take 1 tablet by mouth once daily. cholecalciferol, vitamin D3, (D3-2000 ORAL) Take by mouth. cyanocobalamin (VITAMIN B-12) 1,000 mcg tab Take 1,000 mcg by mouth once daily. triamcinolone acetonide (KENALOG) 0.5 % cream Apply to affected area three times a day. vit A,C,H-Ihuy-Fezpfh (PRESERVISION AREDS) 2,148 mcg-113 mg-45 mg-17.4mg tab [...] No current facility-administered medications for this visit. FAMILY HISTORY Problem Relation Age of Onset Heart Mother atrial fibrilation/diverticulitis/osteoporosis Stroke Father Breast Cancer Maternal Grandmother Stroke Maternal Grandmother Stroke Paternal Grandfather Heart Brother Social History Tobacco Use Smoking status: Never Smokeless tobacco: Never Vaping Use Vaping status: Never Used Substance Use Topics Alcohol use: Yes Comment: 6 per year Drug use: No EXAM: BP 118/80 Pulse 61 Temp 36.9 ?C (98.4 ?F) (Left Tympanic) Resp 16 SpO2 97% PHYSICAL EXAM: General Appearance: Well appearing, alert, in no acute distress, well-hydrated, well nourished.. Skin: Skin color, texture, turgor normal, no suspicious rashes or lesions, Positives: Erythema RLE. Some increased warmth. +1-+2 swelling of the right ankle/foot. Negative rita's. Right knee with bruising swelling, and increased warmth. Lungs: Lungs clear to auscultation. No wheezing, rhonchi, rales.. Heart: RRR without murmur, gallop, or rubs. No ectopy. Abdomen: Abdomen soft, non-tender. Bowel sounds normal. No masses, organomegaly. Extremities: see above. Musculoskeletal: positive right knee swelling, tenderness Neurologic: Gait normal. Sensation grossly intact. ASSESSMENT/PLAN: 1. Cellulitis of skin - ICD9: 682.9, ICD10: L03.90 - Begin treatment with Clindamycin 300 mg tid for 7 days - Follow up for recheck in two days - ultrasound of the right lower leg to r/o DVT - US DVT LOWER RIGHT - US LEG VEIN DVT UNL VAS LAB - Per pt. ortho recommended meloxicam for pain. To ER with any severe symptoms (fever, worsening pain, streaking, cp/sob. Discussed treatment plan and patient voices understanding. Patient's questions answered appropriately. Medications and potential side effects were discussed and patient voices understanding. Return to the office as scheduled or as needed for worsening/no improvement. Susana Pete APRN.CNP CNOV Observed: 01/20/2025 5:00 PM Status: COMPLETED Source: [facility] Office Visit (FAMPWS) MARY REYES ([id number]) 1950 F Date Time Provider Department 01/20/25 5:00 PM SUSANA PETE During your visit today, we recorded the following information about you: Temperature Pulse Respiration Blood pressure 98.4 degrees 61/minute 16/minute 118/80 Susana Pete APRN.CNP 01/20/2025 8:26 PM Signed This is a 74 year old female who presents today with: Patient presents with: Acute Visit: Possible cellulitis R lower leg Denies fever, chills, sob, and chest pain HISTORY OF PRESENT ILLNESS: Mary Reyes is a 74 year old female. Patient presents with: Acute Visit: Possible cellulitis R lower leg O orthopedic sent the pt over to the PCP, Fell on the - completed Xrays at [facility] showed no fractures. Followed up with ortho d/t knee pain and bruising/swelling of the knee. L pain on the right lower extremity began two days ago D intermittent pain, C bruises, tightness, redness, and swelling, 7-8/10 aching pain when first standing A standing in one place for a long period times makes pain worse R recline helps and walking helps T tylenol with codeine did not help much from [facility], ibuprofen helped some,and ice. Ortho recommended pt to take meloxicam BID S pt denies cellulitis the past Bilateral knee replaced in 2018 -redness, bruising, and swelling on the right knee -currently taking pain meds, no open wounds or sore PAST MEDICAL HISTORY: PAST MEDICAL HISTORY Diagnosis Date Arthritis left knee, back Chronic kidney disease, stage 3a (HCC) 05/26/2023 Complication of anesthesia N/V DDD (degenerative disc disease), lumbar Diulus, Haney Diverticulosis of colon (without mention of hemorrhage) [...] PROSTC AGRFT/ALGRFT Left 03/27/[address] [facility], [facility] ARTHRP KNE CONDYLEANDPLATU MEDIALANDLAT COMPARTMENTS 10/04/10 Knee replacement, total Knee ARTHRP KNE CONDYLEANDPLATU MEDIALANDLAT COMPARTMENTS Right 10/01/2018 Dr. Mata, [facility] COLONOSCOPY FLX DX W/COLLJ SPEC WHEN [...] [Rofecoxib] MEDICATIONS Current Outpatient Medications Medication Sig primidone (MYSOLINE) 50 mg tablet Take 1 tablet by mouth daily at bedtime. LORazepam (ATIVAN) 0.5 mg Take 1 tablet 30 minutes prior to MRI. If needed can take additional 1 tablet at time of MRI. Please do not drive or operate heavy machinery on the day of taking the Ativan. metoprolol succinate ER (TOPROL XL) 50 mg 24 hr tablet Take 1 tablet by mouth once daily. cholecalciferol, vitamin D3, (D3-2000 ORAL) Take by mouth. cyanocobalamin (VITAMIN B-12) 1,000 mcg tab Take 1,000 mcg by mouth once daily. triamcinolone acetonide (KENALOG) 0.5 % cream Apply to affected area three times a day. vit A,C,N-Jxfx-Rijblk (PRESERVISION AREDS) 2,148 mcg-113 mg-45 mg-17.4mg tab [...] No current facility-administered medications for this visit. FAMILY HISTORY Problem Relation Age of Onset Heart Mother atrial fibrilation/diverticulitis/osteoporosis Stroke Father Breast Cancer Maternal Grandmother Stroke Maternal Grandmother Stroke Paternal Grandfather Heart Brother Social History Tobacco Use Smoking status: Never Smokeless tobacco: Never Vaping Use Vaping status: Never Used Substance Use Topics Alcohol use: Yes Comment: 6 per year Drug use: No EXAM: BP 118/80 Pulse 61 Temp 36.9 ?C (98.4 ?F) (Left Tympanic) Resp 16 SpO2 97% PHYSICAL EXAM: General Appearance: Well appearing, alert, in no acute distress, well-hydrated, well nourished.. Skin: Skin color, texture, turgor normal, no suspicious rashes or lesions, Positives: Erythema RLE. Some increased warmth. +1-+2 swelling of the right ankle/foot. Negative rita's. Right knee with bruising swelling, and increased warmth. Lungs: Lungs clear to auscultation. No wheezing, rhonchi, rales.. Heart: RRR without murmur, gallop, or rubs. No ectopy. Abdomen: Abdomen soft, non-tender. Bowel sounds normal. No masses, organomegaly. Extremities: see above. Musculoskeletal: positive right knee swelling, tenderness Neurologic: Gait normal. Sensation grossly intact. ASSESSMENT/PLAN: 1. Cellulitis of skin - ICD9: 682.9, ICD10: L03.90 - Begin treatment with Clindamycin 300 mg tid for 7 days - Follow up for recheck in two days - ultrasound of the right lower leg to r/o DVT - US DVT LOWER RIGHT - US LEG VEIN DVT UNL VAS LAB - Per pt. ortho recommended meloxicam for pain. To ER with any severe symptoms (fever, worsening pain, streaking, cp/sob. Discussed treatment plan and patient voices understanding. Patient's questions answered appropriately. Medications and potential side effects were discussed and patient voices understanding. Return to the office as scheduled or as needed for worsening/no improvement. Susana Pete APRN.Susana Eli APRN.CNP 01/20/2025 5:54 PM Addendum Follow up in 2 days Antibiotic is prescribed for right lower leg clindamycin 300 mg TID Schedule Ultrasound for DVT Allergies As of Date: 01/20/2025 Noted Allergy Reaction VICODIN (HYDROCODONE-ACETAMINOPHE*03/25/2011 2 - Rash VIOXX (ROFECOXIB) 03/18/2005 8 - GI Upset Date Reviewed: 01/20/2025 Reviewed by: Madi Garcia LPN - Fully Assessed Reason for Visit: Acute Visit [896] Cmt: Possible cellulitis R lower leg Primary Visit Diagnosis:Cellulitis of skin [L03.90] Other Visit Diagnosis:Leg swelling [M79.89] Order(s):clindamycin (CLEOCIN HCL) 300 mg capsuleTake 1 capsule by mouth three times a day for 7 days.Disp: 21 capsuleRfl: 0 US DVT LOWER RIGHT [[id number]] Order #: [id number] FUTURE US LEG VEIN DVT UNL VAS LAB [[id number]] Order #: [id number] FUTURE Prescriptions as of 01/20/2025 - clindamycin (CLEOCIN HCL) 300 mg capsule Take 1 capsule by mouth three times a day for 7 days. - primidone (MYSOLINE) 50 mg tablet Take 1 tablet by mouth daily at bedtime. - LORazepam (ATIVAN) 0.5 mg Take 1 [...] area three times a day. - vit A,C,M-Kvvz-Pesfza (PRESERVISION AREDS) 2,148 mcg-113 mg-45 mg-17.4mg tab [...] once daily. 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 Level of Service: OFFICE/OUTPATIENT ESTABLISHED MOD MDM 30 MIN [51872] Additional E/M codes: VISIT CPLX INHERENT EANDM ASSOC WITH MED * Encounter Status:Closed by SUSANA PETE on 01/20/25 MIRELLA Observed: 01/20/2025 12:00 AM Status: COMPLETED Source: [facility] Telephone ([employer]) MARY REYES ([id number]) 1950 F Date Time Provider Department 01/20/25 PETE MOREJON [employer] During your visit today, we recorded the following information about you: Karen Maravilla 01/20/2025 6:50 PM Addendum Patient came in [facility] for an appointment for leg pain/ swelling. A DVT ultrasound or [facility] was ordered. Both departments are booked solid at [facility]. Patient refused to travel. We are NOT able to schedule for [facility]. We are required to get approval from [employer] before [facility] will contact them to schedule. Email was sent to the appropriate parties to get the approval. [facility] will contact them to schedule at their facility. Again [facility] are unable to schedule [facility] procedures. Madi Garcia LPN 01/21/2025 11:18 AM Signed Phoned pt to see if she has heard from [facility] regarding the ultrasound. LM for pt to return call to office. If pt returns call to office and has not heard from [facility], please have her call [phone] to get it set up RAY. VARUN Mayer Beth, LPN 01/21/2025 11:29 AM Signed Patient Dalton calling went over notes below and he said he will call the number given to get appt set up. Blanca Flood, ROCKY 01/21/2025 11:38 AM Signed Patient's calls back and states that he had talked to [facility] and they have not received order. Order faxed to [facility]. Blanca Flood RN Allergies As of Date: 01/20/2025 Noted Allergy Reaction VICODIN (HYDROCODONE-ACETAMINOPHE*03/25/2011 2 - Rash VIOXX (ROFECOXIB) 03/18/2005 8 - GI Upset Date Reviewed: 01/20/2025 Reviewed by: Madi Garcia LPN - Fully Assessed Reason for Visit: Orders [681] Prescriptions as of 01/22/2025 - clindamycin (CLEOCIN HCL) 300 mg capsule Take 1 capsule by mouth three times a day for 7 days. - primidone (MYSOLINE) 50 mg tablet Take 1 tablet by mouth daily at bedtime. - metoprolol succinate ER (TOPROL XL) 50 mg 24 hr tablet Take 1 tablet by mouth once daily. - cholecalciferol, vitamin D3, (D3-2000 ORAL) Take by mouth. - cyanocobalamin (VITAMIN B-12) 1,000 mcg tab Take 1,000 mcg by mouth once daily. - triamcinolone acetonide (KENALOG) 0.5 % cream Apply to affected area three times a day. - vit A,C,A-Ilwg-Chyezv (PRESERVISION AREDS) 2,148 mcg-113 mg-45 mg-17.4mg tab [...] once daily. 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 Had a knee injury- no breaks. Had xrays at [facility] and at [facility]. Is at [facility] right now. [facility] suspects she has cellulitis and wants her to see her pcp right away. Right ankle is swollen and red since Fri or Sat. Area is red but deeper red on right ankle [facility]. Scheduled same day appt with Nelson Pete. No open appts in pcp office. Susana Pete APRN.JOYCE 01/21/2025 12:56 PM Signed See office notes. Susana Pete APRN.INTERMISSION COORDINATOR Allergies As of Date: 01/20/2025 Noted Allergy Reaction VICODIN (HYDROCODONE-ACETAMINOPHE*03/25/2011 2 - Rash VIOXX (ROFECOXIB) 03/18/2005 8 - GI Upset Date Reviewed: 01/20/2025 Reviewed by: Madi Garcia LPN - Fully Assessed Prescriptions as of 01/21/2025 - clindamycin (CLEOCIN HCL) 300 mg capsule Take 1 capsule by mouth three times a day for 7 days. - primidone (MYSOLINE) 50 mg tablet Take 1 tablet by mouth daily at bedtime. - metoprolol succinate ER (TOPROL XL) 50 mg 24 hr tablet Take 1 tablet by mouth once daily. - cholecalciferol, vitamin D3, (D3-2000 ORAL) Take by mouth. - cyanocobalamin (VITAMIN B-12) 1,000 mcg tab Take 1,000 mcg by mouth once daily. - triamcinolone acetonide (KENALOG) 0.5 % cream Apply to affected area three times a day. - vit A,C,P-Sjhl-Atnbpn (PRESERVISION AREDS) 2,148 mcg-113 mg-45 mg-17.4mg tab [...] once daily. 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] 01/27/2006 [...] of breath) [R06.02] 07/30/2024 Encounter Status:Closed by Yonathan BRAR on 01/21/25 MIRELLA Observed: 01/10/2025 12:00 AM Status: COMPLETED Source: [facility] MARY REYES ([id number]) 1950 F Date Time Provider Department 01/10/25 PETE MORE[facility]ON [facility] During your visit today, we recorded the following information about you: Freida River 01/10/2025 9:23 AM Signed Patient would like to flower buncher or picker a CD on 01/13/25 of X-rays that were done on 01/09/25. Freida River 01/13/2025 11:18 AM Signed Notified patient, she stated she will be in around 2:30 today. Allergies As of Date: 01/10/2025 Noted Allergy Reaction VICODIN (HYDROCODONE-ACETAMINOPHE*03/25/2011 2 - Rash VIOXX (ROFECOXIB) 03/18/2005 8 - GI Upset Date Reviewed: 01/09/2025 Reviewed by: Margot Liao MA - Fully Assessed Reason for Visit: Patient Question [4227] Prescriptions as of 01/13/2025 - acetaminophen-codeine (TYLENOL-COD #3) 300-30 mg per tablet Take 1 tablet by mouth every 6 hours as needed for pain for up to 5 days. - mupirocin (BACTROBAN) 2 % ointment Apply 1 application to affected area three times a day for 10 days. - primidone (MYSOLINE) 50 mg tablet Take 1 tablet by mouth daily at bedtime. - LORazepam (ATIVAN) 0.5 mg Take 1 [...] area three times a day. - vit A,C,V-Waxh-Ynjwft (PRESERVISION AREDS) 2,148 mcg-113 mg-45 mg-17.4mg tab [...] once daily. 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 Author Type: Nurse Practitioner Type: Progress Notes Filed: 01/09/2025 18:01 Note Text: [facility] Subjective Mary Reyes is a 74 year old female. Patient presents with: Trauma: Fell and injured right knee Trauma Right Knee Pain and Swelling: - Fell around 1300 while eating at a fast food restaurant. - Able to walk immediately after the fall; swelling developed later. - Pain rated 7-8/10. - No pain behind the knee. - Has an artificial knee, surgery performed in 2018 or 2019. 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 - Denies taking any medication for the pain today. Review of Systems Musculoskeletal: (+) right knee pain, (+) right knee swelling, (+) right knee numbness, (-) posterior right knee pain Objective BP 100/62 Pulse 60 Temp 36.3 ?C (97.4 ?F) Resp 20 SpO2 98% PAST MEDICAL HISTORY Diagnosis Date - Arthritis left knee, back - Chronic kidney disease, stage 3a (HCC) 05/26/2023 - Complication of anesthesia N/V - DDD (degenerative disc disease), lumbar Diulus, Haney - Diverticulosis of colon (without mention of hemorrhage) 05/27 Diverticulosis - Head injury 1971 left hand numbness, decrease coordination on right (dominant) - IFG (impaired fasting glucose) 03/2017 a1c 5.8% - Insomnia, unspecified improved - Mild atherosclerosis of carotid artery 2016 internal, 0-19% - Papanicolaou smear of cervix with atypical squamous cells of undetermined significance (ASC-US) 2009 ASCUS HPV negative, Dr Whiteside - Snoring - Tremor left hand - Unspecified essential hypertension borderline PAST SURGICAL HISTORY Procedure Laterality Date - ARTHROSCOPY KNEE DIAGNOSTIC W/WO SYNOVIAL BX SPX 03/25/2003 Arthroscopy, knee LEFT - ARTHRP ACETBLR/PROX FEM PROSTC AGRFT/ALGRFT Left 03/27/[address] [facility], [facility] - ARTHRP KNE CONDYLEANDPLATU MEDIALANDLAT COMPARTMENTS 10/04/10 Knee replacement, total Knee - ARTHRP KNE CONDYLEANDPLATU MEDIALANDLAT COMPARTMENTS Right 10/01/2018 Dr. Mata, [facility] - COLONOSCOPY FLX DX W/COLLJ SPEC WHEN PFRMD 06/02/04 Repeat in - COLONOSCOPY FLX DX W/COLLJ SPEC WHEN PFRMD 06/23/14 no polyps - EYE SURGERY HX 06/27/14 left laeral rectus recession-strabismus - F SI JOINT INJECTION 02/02/12 - LIG/TRNSXJ FLP TUBE ABDL/VAG APPR UNI/1982 Tubal ligation - NEUROPLASTY AND/TRANSPOS MEDIAN NRV CARPAL TUNNE 09/2000 Carpal tunnel decomp LEFT - PAST SURGICAL HISTORY OF 1988 LEFT EYE, strabismus repair after injury - PAST SURGICAL HISTORY OF 1970 skull fracture (ice skating) ALLERGIES Vicodin [Hydrocodone-Acetaminophen] and Vioxx [Rofecoxib] MEDICATIONS - primidone (MYSOLINE) 50 mg tablet Take 1 tablet by mouth daily at bedtime. - LORazepam (ATIVAN) 0.5 mg Take 1 [...] area three times a day. - vit A,C,D-Csua-Pksrcx (PRESERVISION AREDS) 2,148 mcg-113 mg-45 mg-17.4mg tab [...] Take 81 mg by mouth once daily. - acetaminophen-codeine (TYLENOL-COD #3) 300-30 mg per tablet Take 1 tablet by mouth every 6 hours as needed for pain for up to 5 days. - mupirocin (BACTROBAN) 2 % ointment Apply 1 application to affected area three times a day for 10 days. FAMILY HISTORY Problem Relation Age of Onset - Heart Mother atrial fibrilation/diverticulitis/osteoporosis - Stroke Father - Breast Cancer Maternal Grandmother - Stroke Maternal Grandmother - Stroke Paternal Grandfather - Heart Brother Social History Tobacco Use - Smoking status: Never - Smokeless tobacco: Never Vaping Use - Vaping status: Never Used Substance Use Topics - Alcohol use: Yes Comment: 6 per year - Drug use: No Physical Exam Vitals and nursing note reviewed. Constitutional: General: She is not in acute distress. Appearance: Normal appearance. She is not ill-appearing. Musculoskeletal: General: Swelling, tenderness and signs of injury present. No deformity. Legs: Skin: General: Skin is warm and dry. Capillary Refill: Capillary refill takes less than 2 seconds. Findings: Bruising present. No erythema or rash. Neurological: Mental Status: She is alert. General: No acute distress. MSK/Ext: Significant swelling of the right knee, abrasions on the right knee, limited extension of the right leg due to pain. {1. Right knee injury, initial encounter (S89.91XA) 2. Fall on same level from slipping, tripping and stumbling without subsequent striking against object, initial encounter (W01.0XXA) - Sustained injury from a fall today at approximately 1300. - Ordered X-ray to assess for potential damage to prosthetic components. - Applied large AURORA wrap to right knee. - Advised rest, ice, elevation, and continued use of AURORA wrap until orthopedic evaluation. 3. Abrasion, right knee, initial encounter (S80.211A) - Cleaned with Hibiclens and saline; covered with a large Band-Aid. 4. Acute pain of right knee (M25.561) - Pain rated at 7-8/10. - Prescribed Tylenol #3. - Advised against concurrent use of extra strength Tylenol; may use ibuprofen or Advil with Tylenol #3. XRAY IMPRESSION: 1. Bilateral total knee prostheses. 2. Prominent right prepatellar soft tissue swelling. Suggestion of soft tissue prominence in the region of the right patellar tendon. Correlate clinically for patellar tendon injury. Vaccine Key Customer Leader: REVA Transcribe Date/Time: Jan 09 2025 5:39P Dictated by : YOON JAIN MD 5. Presence of right artificial knee joint (Z96.651) - Right knee arthroplasty performed in 2018 or 2019. - Chronic numbness and occasional soreness reported, attributed to pre-existing nerve damage. - Follow-up with your PCP in 3-5 days if symptoms have not improved or sooner if symptoms worsen - Discussed red flags and need for immediate medical evaluation if any occur. - Discussed supportive care treatment with fluids, rest and analgesia. - Discussed expected course of illness Nimco Shore APRN.INTERMISSION COORDINATOR and Recording using [employer] software for draft documentation of the visit was discussed with the patient/authorized jewelry sales representative; all questions welcomed and answered. Patient/authorized jewelry sales representative agreed to proceed History and Record Review Clinical information obtained from an independent historian. History obtained from or confirmed by: spouse. Disposition The patient was discharged. OTC Medications were advised: Procedures XR KNEE 4V AP/PA BOTH+LAT/JATIN RT Observed: 01/09/2025 4:53 PM Status: F Source: [facility] * * *Final Report* * * DATE OF EXAM: Jan 09 2025 4:53PM WOX 5203 - XR KNEE 4V AP/PA BOTH+LAT/JATIN RT / PROCEDURE REASON: Right knee injury, initial encounter * * * * Physician Interpretation * * * * EXAMINATION: RIGHT KNEE X-RAY SERIES EXAMINATION: BILATERAL KNEE STANDING X-RAY SERIES HISTORY: Right knee injury, initial encounter COMPARISON: None available. TECHNIQUE: Right knee x-ray series, lateral view ; bilateral knee standing AP, PA, and patellar x-ray images RESULT:Right knee: No fracture, dislocation or destructive changes. Status post total knee prosthesis. Marked prepatellar soft tissue swelling. Suggestion of soft tissue prominence in the region of the patellar tendon. Correlate clinically for patellar tendon injury. No evidence of overt knee joint effusion. Left knee: No evidence of fracture, dislocation or foreign body. Status post total knee joint replacement. Soft tissues appear normal. IMPRESSION: 1. Bilateral total knee prostheses. 2. Prominent right prepatellar soft tissue swelling. Suggestion of soft tissue prominence in the region of the right patellar tendon. Correlate clinically for patellar tendon injury. Vaccine Key Customer Leader: PSCB Transcribe Date/Time: Jan 09 2025 5:39P Dictated by : YOON JAIN MD This examination was interpreted and the report reviewed and electronically signed by: YOON JAIN MD on Jan 09 2025 5:41PM EST [id number] Observed: 01/09/2025 4:45 PM Status: COMPLETED Source: [facility] ERICMARY Allegra ([id number]) 1950 F Date Time Provider Department 01/09/25 4:45 PM NIMCO SHORE [facility] During your visit today, we recorded the following information about you: Temperature Pulse Respiration Blood pressure 97.4 degrees 60/minute 20/minute 100/62 Nimco Shore, [facility] 01/09/2025 6:01 PM Signed [facility] Subjective Mary Dinh Eric is a 74 year old female. Patient presents with: Trauma: Fell and injured right knee Trauma Right Knee Pain and Swelling: - Fell around 1300 while eating at a fast food restaurant. - Able to walk immediately after the fall; swelling developed later. - Pain rated 7-8/10. - No pain behind the knee. - Has an artificial knee, surgery performed in 2018 or 2019. 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 - Denies taking any medication for the pain today. Review of Systems Musculoskeletal: (+) right knee pain, (+) right knee swelling, (+) right knee numbness, (-) posterior right knee pain Objective BP 100/62 Pulse 60 Temp 36.3 ?C (97.4 ?F) Resp 20 SpO2 98% PAST MEDICAL HISTORY Diagnosis Date - Arthritis left knee, back - Chronic kidney disease, stage 3a (HCC) 05/26/2023 - Complication of anesthesia N/V - DDD (degenerative disc disease), lumbar Diulus, Haney - Diverticulosis of colon (without mention of hemorrhage) 05/27 Diverticulosis - Head injury 1970 left hand numbness, decrease coordination on right (dominant) - IFG (impaired fasting glucose) 03/2017 a1c 5.8% - Insomnia, unspecified improved - Mild atherosclerosis of carotid artery 2016 internal, 0-19% - Papanicolaou smear of cervix with atypical squamous cells of undetermined significance (ASC-US) 2009 ASCUS HPV negative, Dr Whiteside - Snoring - Tremor left hand - Unspecified essential hypertension borderline PAST SURGICAL HISTORY Procedure Laterality Date - ARTHROSCOPY KNEE DIAGNOSTIC W/WO SYNOVIAL BX SPX 03/25/2003 Arthroscopy, knee LEFT - ARTHRP ACETBLR/PROX FEM PROSTC AGRFT/ALGRFT Left 03/27/[address] Mederos, [facility] - ARTHRP KNE CONDYLEANDPLATU MEDIALANDLAT COMPARTMENTS 10/04/10 Knee replacement, total Knee - ARTHRP KNE CONDYLEANDPLATU MEDIALANDLAT COMPARTMENTS Right 10/01/2018 Dr. Mata, [facility] - COLONOSCOPY FLX DX W/COLLJ SPEC WHEN PFRMD 06/02/04 Repeat in - COLONOSCOPY FLX DX W/COLLJ SPEC WHEN PFRMD 06/23/14 no polyps - EYE SURGERY HX 06/27/14 left laeral rectus recession-strabismus - F SI JOINT INJECTION 02/02/12 - LIG/TRNSXJ FLP TUBE ABDL/VAG APPR UNI/BI 1982 Tubal ligation - NEUROPLASTY AND/TRANSPOS MEDIAN NRV CARPAL TUNNE 09/2000 Carpal tunnel decomp LEFT - PAST SURGICAL HISTORY OF 1988 LEFT EYE, strabismus repair after injury - PAST SURGICAL HISTORY OF 1971 skull fracture (ice skating) ALLERGIES Vicodin [Hydrocodone-Acetaminophen] and Vioxx [Rofecoxib] MEDICATIONS - primidone (MYSOLINE) 50 mg tablet Take 1 tablet by mouth daily at bedtime. - LORazepam (ATIVAN) 0.5 mg Take 1 [...] area three times a day. - vit A,C,J-Twkr-Nrlnkl (PRESERVISION AREDS) 2,148 mcg-113 mg-45 mg-17.4mg tab [...] Take 81 mg by mouth once daily. - acetaminophen-codeine (TYLENOL-COD #3) 300-30 mg per tablet Take 1 tablet by mouth every 6 hours as needed for pain for up to 5 days. - mupirocin (BACTROBAN) 2 % ointment Apply 1 application to affected area three times a day for 10 days. FAMILY HISTORY Problem Relation Age of Onset - Heart Mother atrial fibrilation/diverticulitis/osteoporosis - Stroke Father - Breast Cancer Maternal Grandmother - Stroke Maternal Grandmother - Stroke Paternal Grandfather - Heart Brother Social History Tobacco Use - Smoking status: Never - Smokeless tobacco: Never Vaping Use - Vaping status: Never Used Substance Use Topics - Alcohol use: Yes Comment: 6 per year - Drug use: No Physical Exam Vitals and nursing note reviewed. Constitutional: General: She is not in acute distress. Appearance: Normal appearance. She is not ill-appearing. Musculoskeletal: General: Swelling, tenderness and signs of injury present. No deformity. Legs: Skin: General: Skin is warm and dry. Capillary Refill: Capillary refill takes less than 2 seconds. Findings: Bruising present. No erythema or rash. Neurological: Mental Status: She is alert. General: No acute distress. MSK/Ext: Significant swelling of the right knee, abrasions on the right knee, limited extension of the right leg due to pain. {1. Right knee injury, initial encounter (S89.91XA) 2. Fall on same level from slipping, tripping and stumbling without subsequent striking against object, initial encounter (W01.0XXA) - Sustained injury from a fall today at approximately 1300. - Ordered X-ray to assess for potential damage to prosthetic components. - Applied large AURORA wrap to right knee. - Advised rest, ice, elevation, and continued use of AURORA wrap until orthopedic evaluation. 3. Abrasion, right knee, initial encounter (S80.211A) - Cleaned with Hibiclens and saline; covered with a large Band-Aid. 4. Acute pain of right knee (M25.561) - Pain rated at 7-8/10. - Prescribed Tylenol #3. - Advised against concurrent use of extra strength Tylenol; may use ibuprofen or Advil with Tylenol #3. XRAY IMPRESSION: 1. Bilateral total knee prostheses. 2. Prominent right prepatellar soft tissue swelling. Suggestion of soft tissue prominence in the region of the right patellar tendon. Correlate clinically for patellar tendon injury. Vaccine Key Customer Leader: REVA Transcribe Date/Time: Jan 09 2025 5:39P Dictated by : YOON JAIN MD 5. Presence of right artificial knee joint (Z96.651) - Right knee arthroplasty performed in 2018 or 2019. - Chronic numbness and occasional soreness reported, attributed to pre-existing nerve damage. - Follow-up with your PCP in 3-5 days if symptoms have not improved or sooner if symptoms worsen - Discussed red flags and need for immediate medical evaluation if any occur. - Discussed supportive care treatment with fluids, rest and analgesia. - Discussed expected course of illness Nimco Shore APRN.INTERMISSION COORDINATOR and Recording using [employer] software for draft documentation of the visit was discussed with the patient/authorized jewelry sales representative; all questions welcomed and answered. Patient/authorized jewelry sales representative agreed to proceed History and Record Review Clinical information obtained from an independent historian. History obtained from or confirmed by: spouse. Disposition The patient was discharged. OTC Medications were advised: Nimco Ely APRN.INTERMISSION COORDINATOR 01/09/2025 6:01 PM Signed 1. Right knee injury, initial encounter (S89.91XA) 2. Fall on same level from slipping, tripping and stumbling without subsequent striking against object, initial encounter (W01.0XXA) - Sustained injury from a fall today at approximately 1300. - Ordered X-ray to assess for potential damage to prosthetic components. - Applied large AURORA wrap to right knee. - Advised rest, ice, elevation, and continued use of AURORA wrap until orthopedic evaluation. 3. Abrasion, right knee, initial encounter (S80.211A) - Cleaned with Hibiclens and saline; covered with a large Band-Aid. 4. Acute pain of right knee (M25.561) - Pain rated at 7-8/10. - Prescribed Tylenol #3. - Advised against concurrent use of extra strength Tylenol; may use ibuprofen or Advil with Tylenol #3. XRAY IMPRESSION: 1. Bilateral total knee prostheses. 2. Prominent right prepatellar soft tissue swelling. Suggestion of soft tissue prominence in the region of the right patellar tendon. Correlate clinically for patellar tendon injury. Vaccine Key Customer Leader: REVA Transcribe Date/Time: Jan 09 2025 5:39P Dictated by : YOON JAIN MD 5. Presence of right artificial knee joint (Z96.651) - Right knee arthroplasty performed in 2018 or 2019. - Chronic numbness and occasional soreness reported, attributed to pre-existing nerve damage. - Take Tylenol #3 for knee pain exactly as prescribed. Do not take extra-strength Tylenol while using this medication. You may also take ibuprofen (Advil) in addition if needed. - Keep the large AURORA wrap on your right knee and continue to rest, ice, and elevate your leg to help reduce swelling and pain. - Leave the Band-Aid covering the cleaned abrasion on your right knee in place. - Follow up with your solar site assessment specialist as soon as possible to review your knee x-ray and assess your knee injury. Allergies As of Date: 01/09/2025 Noted Allergy Reaction VICODIN (HYDROCODONE-ACETAMINOPHE*03/25/2011 2 - Rash VIOXX (ROFECOXIB) 03/18/2005 8 - GI Upset Date Reviewed: 01/09/2025 Reviewed by: Margot Liao MA - Fully Assessed Reason for Visit: Trauma [112] Cmt: Fell and injured right knee Primary Visit Diagnosis:Right knee injury, initial encounter [S89.91XA] Other Visit Diagnoses:Abrasion, right knee, initial encounter [S80.211A] Acute pain of right knee [M25.561] Presence of right artificial knee joint [Z96.651] Fall on same level from slipping, tripping and stumbling without subsequent striking against object, initial encounter [W01.0XXA] Order(s):XR KNEE GENERAL 4V AP BOTH/PA BOTH/LAT/MERC RIGHT [[id number]] Order #: [id number] FUTURE acetaminophen-codeine (TYLENOL-COD #3) 300-30 mg per tabletTake 1 tablet by mouth every 6 hours as needed for pain for up to 5 days.Disp: 20 tabletRfl: 0 mupirocin (BACTROBAN) 2 % ointmentApply 1 application to affected area three times a day for 10 days.Disp: 22 gRfl: 0 Prescriptions as of 01/09/2025 - acetaminophen-codeine (TYLENOL-COD #3) 300-30 mg per tablet Take 1 tablet by mouth every 6 hours as needed for pain for up to 5 days. - mupirocin (BACTROBAN) 2 % ointment Apply 1 application to affected area three times a day for 10 days. - primidone (MYSOLINE) 50 mg tablet Take 1 tablet by mouth daily at bedtime. - LORazepam (ATIVAN) 0.5 mg Take 1 [...] area three times a day. - vit A,C,T-Jpqu-Wxuscs (PRESERVISION AREDS) 2,148 mcg-113 mg-45 mg-17.4mg tab [...] once daily. 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 Right knee injury, initial encounter (S89.91XA) 2. Fall on same level from slipping, tripping and stumbling without subsequent striking against object, initial encounter (W01.0XXA) - Sustained injury from a fall today at approximately 1300. - Ordered X-ray to assess for potential damage to prosthetic components. - Applied large AURORA wrap to right knee. - Advised rest, ice, elevation, and continued use of AURORA wrap until orthopedic evaluation. 3. Abrasion, right knee, initial encounter (S80.211A) - Cleaned with Hibiclens and saline; covered with a large Band-Aid. 4. Acute pain of right knee (M25.561) - Pain rated at 7-8/10. - Prescribed Tylenol #3. - Advised against concurrent use of extra strength Tylenol; may use ibuprofen or Advil with Tylenol #3. XRAY IMPRESSION: 1. Bilateral total knee prostheses. 2. Prominent right prepatellar soft tissue swelling. Suggestion of soft tissue prominence in the region of the right patellar tendon. Correlate clinically for patellar tendon injury. Vaccine Key Customer Leader: REVA Transcribe Date/Time: Jan 09 2025 5:39P Dictated by : YOON JAIN MD 5. Presence of right artificial knee joint (Z96.651) - Right knee arthroplasty performed in 2018 or 2019. - Chronic numbness and occasional soreness reported, attributed to pre-existing nerve damage. - Take Tylenol #3 for knee pain exactly as prescribed. Do not take extra-strength Tylenol while using this medication. You may also take ibuprofen (Advil) in addition if needed. - Keep the large AURORA wrap on your right knee and continue to rest, ice, and elevate your leg to help reduce swelling and pain. - Leave the Band-Aid covering the cleaned abrasion on your right knee in place. - Follow up with your solar site assessment specialist as soon as possible to review your knee x-ray and assess your knee injury. Prescriptions ordered this encounter Disp Refills Start End ACETAMINOPHEN 300 MG-CODEINE 30 MG T* 20 t* 0 01/09/2025 01/14/2025 Route: PO Sig: Take 1 tablet by mouth every 6 hours as needed for pain for up to 5 days. MUPIROCIN 2 % TOPICAL OINTMENT 22 g 0 01/09/2025 01/19/2025 Route: TOP Sig: Apply 1 application to affected area three times a day for 10 days. Disposition: Return if symptoms worsen or fail to improve. Follow-up and Disposition History for Encounter Date Provider Department Center 01/09/2025 [id number], [id number] Bud [facility] Encounter Status:Closed by NIMCO SHORE on 01/09/25 PROGRESS Observed: 01/09/2025 4:30 PM Status: COMPLETED [facility]: [id number] Author: ANALIA MITCHELL RT(R) Service: ? Author Type: Technologist Type: Progress Notes Filed: 01/09/2025 16:51 Note Text: Radiology Service Progress Note PATIENT NAME: Mary Reyes DATE OF SERVICE: January 09, 2025 TIME: 4:28 PM PATIENT IDENTITY VERIFICATION COMPLETED USING TWO [...] PATIENT PRESENTS WITH AN IMPLANTABLE OR ATTACHED BULKHEAD CARPENTER: No RADIOLOGY DEPARTMENT: General X-ray: Exam(s) Completed: Lower Extremity X-Ray(s): Knee, AP / Lat / Tunne / Merchant Right PERIPHERAL IV DATA: Not applicable SIGNED BY: RT Lynnette(R) January 09, 2025 4:28 PM COMP METAB 2000 PNL SERPL Collected: 11:26 AM Status: F Source: [facility] Order Comment: Specimen Type : BLOOD SPECIMEN [facility]ing Facility: [facility] Address: [address] [place] [address] TYPE CODE TESTS RESULT OUT OF RANGE REFERENCE UNITS LAB 2885-2(LOINC) Prot SerPl-mCnc 6.6 6.3-8.0 g/dL LAB 1751-7(LOINC) Albumin SerPl-mCnc 3.6 Low 3.9-4.9 g/dL LAB 92714-3(LOINC) Calcium SerPl-mCnc 9.2 8.5-10.2 mg/dL LAB 1975-2(LOINC) Bilirub SerPl-mCnc 1.1 0.2-1.3 mg/dL LAB 6768-6(LOINC) ALP SerPl-cCnc 68 34-123 U/L LAB 1920-8(LOINC) AST SerPl-cCnc 14 13-35 U/L LAB 1742-6(LOINC) ALT SerPl-cCnc 17 7-38 U/L LAB 2345-7(LOINC) Glucose SerPl-mCnc 110 High 74-99 mg/dL Result Comment: The [place] Diabetes Association (ADA) provides guidance for cutoff [...] Standards of Medical Care in Diabetes 2016, [place] Diabetes Association. Diabetes Care. 2016.39(Suppl 1). LAB 3094-0(LOINC) BUN SerPl-mCnc 13 7-21 mg/ dL LAB 2160-0(LOINC) Creat SerPl-mCnc 0.90 0.58-0.96 mg/dL LAB 2951-2(LOINC) Sodium SerPl-sCnc 139 136-144 mmol/L LAB 2823-3(LOINC) Potassium SerPl-sCnc 4.2 3.7-5.1 mmol/L LAB 2075-0(LOINC) Chloride SerPl-sCnc 102 98-107 mmol/L LAB 2027-9(LOINC) CO2 SerPl-sCnc 25 22-30 mmo l/L LAB 06365-7(LOINC) Anion Gap SerPl-sCnc 12 8-15 mmol/L LAB 22591-8(LOINC) Creatinine + eGFR Pnl SerPlBld 67 >=60 mL/min/1 .73m??? Result Comment: Estimated Gl omerular Filtration Rate (eGFR) is calculated using the 2020 CKD-EPI creatinine equation. This equation utilizes serum creatinine, sex, and age as parameters. The creatinine assay has traceable calibration to isotope dilution-mass spectrometry. Refer to KDIGO guidelines for clinical interpretation. In patients with unstable renal function, e.g. those with acute kidney injury, the eGFR may not accurately reflect actual GFR. Performed By: #### [id number] # ### [facility] [id number] [address] [place] [address] [place] PROGRESS Observed: 12/10/2024 12:30 PM Status: COMPLETED Source: [facility] HNO ID: [id number] Author: QUEENIE SANDERS APRN.INTERMISSION COORDINATOR Service: ? Author Type: Nurse Practitioner Type: Progress Notes Filed: 12/10/2024 13:19 Note Text: [facility] Follow-up Visit Follow-up note This visit was conducted via virtual platform. I have communicated my name and active licensure. The patient's identity and physical location were verified at the time of this visit. Either the patient or their legal jewelry sales representative has been informed of the [...] I am also uncertain if more recent GOVERNMENT EMPLOYEE events or if what is referred to as a tremor, might actual represent focal motor seizure activity. D/w pt and will get MRI brain to reevaluate extent of TBI while also looking for unrelated GOVERNMENT EMPLOYEE events such as more recent strokes to explain multifocal nature of neuro findings. Will also get EEG to evaluate for epileptiform abnormalities. Treatment plan will be determined once these results are known. If not suggestive of a GOVERNMENT EMPLOYEE cause, may consider trial of Primidone or [...] N/V DDD (degenerative disc disease), lumbar Diulus, Haney Diverticulosis of colon (without mention of hemorrhage) [...] PROSTC AGRFT/ALGRFT Left 03/27/[address] Mederos, [facility] ARTHRP KNE CONDYLEANDPLATU MEDIALANDLAT COMPARTMENTS 10/04/10 Knee replacement, total Knee ARTHRP KNE CONDYLEANDPLATU MEDIALANDLAT COMPARTMENTS Right 10/01/2018 Dr. Mata, [facility] COLONOSCOPY FLX DX W/COLLJ SPEC WHEN [...] Sig LORazepam (ATIVAN) 0.5 mg Take 1 tablet 30 minutes prior to MRI. If needed can take additional 1 tablet at time of MRI. Please do not drive or operate heavy machinery on the day of taking the Ativan. metoprolol succinate ER (TOPROL XL) 50 mg 24 hr tablet Take 1 tablet by mouth once daily. cholecalciferol, vitamin D3, (D3-2000 ORAL) Take by mouth. cyanocobalamin (VITAMIN B-12) 1,000 mcg tab Take 1,000 mcg by mouth once daily. triamcinolone acetonide (KENALOG) 0.5 % cream Apply to affected area three times a day. vit A,C,D-Zlca-Kqgnne (PRESERVISION AREDS) 2,148 mcg-113 mg-45 mg-17.4mg tab [...] mouth once daily. No current facility-administered medications on file prior to visit. Social History Tobacco Use Smoking status: Never Smokeless tobacco: Never Vaping Use Vaping status: Never Used Substance Use Topics Alcohol use: Yes Comment: 6 per year Drug use: No ALLERGIES Allergen Reactions Vicodin [Hydrocodon* Rash Vioxx [Rofecoxib] GI Upset Review of Systems: See HPI. Physical Exam: There were no vitals filed for this visit. Patient is alert and in no distress. Dress is appropriate. Mood is appropriate Breathing appears regular and unstressed Neurologic examination: Exam is observational at best. General Appearance: well appearing, in no acute distress Mental status evaluation during the interview and examination showed normal level of consciousness, orientation, language, memory, praxis, and higher intellectual function Affect: Normal Speech: normal Cranial Nerves: III, IV, -EOMI: full. VII-face is symmetric without evidence of weakness. VIII-hearing intact. XII-tongue protrudes midline with normal movements. Labs/studies: EEG 11/05/24: MRI Report MRI BRAIN WO IVCON Exam End: 10/31/2024 11:23 AM (Final result) Narrative: * * *Final Report* * * DATE OF EXAM: Oct 31 2024 11:15AM VALERIA Escobedo4 - MRI BRAIN WO IVCON / PROCEDURE [...] orbits and extracranial soft tissues are unremarkable. Impression: IMPRESSION: No acute intracranial abnormality. Small parenchymal [...] component of superimposed neurodegenerative process not excluded. Vaccine Key Customer Leader: REVA Transcribe Date/Time: Oct 31 2024 12:28P Dictated by : GEOFF HAMILTON MD This examination was interpreted and the report reviewed and electronically signed by: GEOFF HAMILTON MD on Oct 31 2024 2:52PM EST Assessment/Plan: R25.1 Tremor (primary encounter diagnosis) Z87.820 History of traumatic brain injury H53.2 Diplopia R27.9 Incoordination R26.9 Abnormality of gait Comment: Pt previously seen for chronic neurological deficits associated with past TBI with reported brainstem injury. At time of previous appointment she was noted to have postural head tremor. 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 EEG was unremarkable. MRI brain demonstrating chronic insult along R dorsal midbrain and associated volume loss of R superior cerebellar peduncle. 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 Findings would be consistent with previously reported history of TBI. Of note, she is currently taking ASA 81 mg. EEG without evidence of epileptiform discharges/seizure activity. Given no acute findings on imaging, discussed initiating medication to attempt to treat tremor. At this time we will begin primidone 25 mg daily at bedtime (noting pt already on BB). SE reviewed. She is aware that she should notify the office if she experiences SE. Should symptoms persist and no SE, she may notify the office at which time medication may be increased prior to time of follow-up. Updated CMP ordered; last result with normal hepatic fcn in 12/14. She will follow-up in 6 to 8 weeks or sooner should new or changing symptoms occur. [facility] on 12/10/24 COMPREHENSIVE METABOLIC PANEL Queenie Sanders APRN.JOYCE I spent a total of 30 minutes on the date of the service which included preparing to see the patient, ufcf-pn-hpew patient care, completing clinical documentation, obtaining and/or reviewing separately obtained history, performing a medically appropriate examination, counseling and educating the patient/family/caregiver, and ordering medications, tests, or procedures. MIRELLA Observed: 11/18/2024 12:00 AM Status: COMPLETED Source: [facility] Telephone (FAMPWS) ERICMARY ([id number]) 1950 F Date Time Provider Department 11/18/24 SAUL GIL JR During your visit today, we recorded the following information about you: Aisha De León LPN 11/18/2024 11:55 AM Signed Pt calls to report she completed MRI and EEG at [facility]. Pt reports the earliest she could [...] of Date: 11/18/2024 Noted Allergy Reaction VICODIN (HYDROCODONE-ACETAMINOPHE*03/25/2011 2 - Rash VIOXX (ROFECOXIB) 03/18/2005 8 [...] area three times a day. - vit A,C,Y-Hidh-Rbldhv (PRESERVISION AREDS) 2,148 mcg-113 mg-45 mg-17.4mg tab [...] Encounter Status:Closed by ZULMA GONZALEZ on 11/20/24 MRI BRAIN WO IVCON Observed: 10/31/2024 11:15 AM Status: F Source: [facility] * * *Final Report* * * DATE OF EXAM: Oct 31 2024 11:15AM VALERIA 0294 - MRI BRAIN WO IVCON / [...] component of superimposed neurodegenerative process not excluded. Vaccine Key Customer Leader: PSCB Transcribe Date/Time: Oct 31 2024 12:28P Dictated by : GEOFF HAMILTON MD This examination was interpreted and the report reviewed and electronically signed by: GEOFF HAMILTON MD on Oct 31 2024 2:52PM EST [id number] PROGRESS Observed: 10/31/2024 10:30 AM Status: COMPLETED Source: [facility] HNO ID: [id number] Author: NINA CHAPMAN RT(Fidencio) Service: ? Author Type: Technologist Type: Progress [...] PATIENT PRESENTS WITH AN IMPLANTABLE OR ATTACHED BULKHEAD CARPENTER: No RADIOLOGY DEPARTMENT: MR; Exam(s) Completed: Head: Seizure PERIPHERAL IV DATA: Not applicable SIGNED BY: RT Bal(Fidencio) October 31, 2024 10:53 AM PROGRESS Observed: 10/22/2024 9:21 AM Status: COMPLETED Source: [facility] HNO ID: [id number] Author: RASHID JAIN LPN Service: ? Author Type: LICENSED NURSE Type: Progress Notes Filed: 10/22/2024 09:22 Note Text: EMG order sent to [facility]. Rashid Jain LPN October 22, 2024 [...] Probability Score: 47 (Sleep study not recommended) PROGRESS Observed: 10/21/2024 2:52 PM Status: COMPLETED Source: [facility] ID: [id number] Author: SAUL GIL JR, MD Service: ? [...] below. 50 years ago was skating [place] and had a skull fracture. at that time did not have a head imaging other than a XR. Started having diplopia and was transferred to [facility] and then returned home. States needed therapy [...] R side -- sent to neurologist in [facility] and saw twice. States had an [...] affected area three times a day. vit A,C,A-Qxwe-Ymqtxw (PRESERVISION AREDS) 2,148 mcg-113 mg-45 mg-17.4mg tab [...] N/V DDD (degenerative disc disease), lumbar Diulus, Haney Diverticulosis of colon (without mention of hemorrhage) [...] kg (251 lb) SpO2 95% BMI 37.89 kg/m? GENERAL EXAM: General appearance: NAD, pleasant. HEENT: NC/AT, nasal congestion absent, no oral lesions, membranes moist. Lungs: CTA bilaterally. CV: RRR nl S1, S2. No carotid bruits. Extr: No cyanosis, clubbing or edema. Skin: Cool to touch. NEUROLOGICAL EXAM: General: Awake, alert, oriented x3 (person,place,time), speech fluent, no dysarthria; comprehension, naming, repetition intact. Short and long term care administrator memory intact. Fund of knowledge grossly normal by MOCA. CN: PERRL, fundi appear normal including no evidence of papilledema, EOMI except for noted exotropia of the left eye, VFF to confrontation, facial sensation intact but face weakness of central nature on left, impaired hearing on left., bilaterally, palate [...] I am also uncertain if more recent GOVERNMENT EMPLOYEE events or if what is referred to as a tremor, might actual represent focal motor seizure activity. D/w pt and will get MRI brain to reevaluate extent of TBI while also looking for unrelated GOVERNMENT EMPLOYEE events such as more recent strokes to explain multifocal nature of neuro findings. Will also get EEG to evaluate for epileptiform abnormalities. Treatment plan will be determined once these results are known. If not suggestive of a GOVERNMENT EMPLOYEE cause, may consider trial of Primidone or [...] which included preparing to see the patient, njfz-pf-xftv patient care, completing clinical documentation, obtaining and/or reviewing separately obtained history, performing a medically appropriate examination, counseling and educating the patient/family/caregiver, and ordering medications, tests, or procedures. PROGRESS Observed: 10/21/2024 2:26 PM Status: COMPLETED Source: [facility] HNO ID: [id number] Author: RASHID JAIN LPN Service: ? Author [...] Probability Score: 47 (Sleep study not recommended) CNOV Observed: 10/21/2024 2:20 PM Status: COMPLETED Source: [facility] Office Visit (NEMOWS) MARY REYES ([id number]) 1950 F Date Time Provider Department 10/21/24 [...] with a PMH significant for that below. States 50 years ago was skating [place] and had a skull fracture. States at that time did not have a head imaging other than a XR. Started having diplopia and was transferred to [facility] and then returned home. States needed therapy [...] R side -- sent to neurologist in [facility] and saw twice. States had an [...] affected area three times a day. vit A,C,T-Ipsh-Wvypvl (PRESERVISION AREDS) 2,148 mcg-113 mg-45 mg-17.4mg tab [...] N/V DDD (degenerative disc disease), lumbar Diulus, Haney Diverticulosis of colon (without mention of hemorrhage) [...] kg (251 lb) SpO2 95% BMI 37.89 kg/m? GENERAL EXAM: General appearance: NAD, pleasant. HEENT: NC/AT, nasal congestion absent, no oral lesions, membranes moist. Lungs: CTA bilaterally. CV: RRR nl S1, S2. No carotid bruits. Extr: No cyanosis, clubbing or edema. Skin: Cool to touch. NEUROLOGICAL EXAM: General: Awake, alert, oriented x3 (person,place,time), speech fluent, no dysarthria; comprehension, naming, repetition intact. Short and half-way memory intact. Fund of knowledge grossly normal by MOCA. CN: PERRL, fundi appear normal including no evidence of papilledema, EOMI except for noted exotropia of the left eye, VFF to confrontation, facial sensation intact but face weakness of central nature on left, impaired hearing on left., bilaterally, palate [...] I am also uncertain if more recent GOVERNMENT EMPLOYEE events or if what is referred to as a tremor, might actual represent focal motor seizure activity. D/w pt and will get MRI brain to reevaluate extent of TBI while also looking for unrelated GOVERNMENT EMPLOYEE events such as more recent strokes to explain multifocal nature of neuro findings. Will also get EEG to evaluate for epileptiform abnormalities. Treatment plan will be determined once these results are known. If not suggestive of a GOVERNMENT EMPLOYEE cause, may consider trial of Primidone or [...] which included preparing to see the patient, hgvh-hf-dgfy patient care, completing clinical documentation, obtaining and/or reviewing separately obtained history, performing a medically appropriate examination, counseling and educating the patient/family/caregiver, and ordering medications, tests, or procedures. Rashid Jain LPN 10/22/2024 9:22 AM Signed EMG order sent to [facility]. Rashid Jain LPN October 22, 2024 [...] Probability Score: 47 (Sleep study not recommended) Referring Provider: PETE MOREJON [[id number]] Allergies As of Date: 10/21/2024 Noted Allergy Reaction VICODIN (HYDROCODONE-ACETAMINOPHE*03/25/2011 2 - Rash VIOXX (ROFECOXIB) 03/18/2005 8 - GI Upset Date Reviewed: 10/21/2024 Reviewed by: Saul Gil Jr., MD - Fully Assessed Reason for Visit: New Patient [172] Cmt: C/o Tremos in left hand x20 yrs, progressing, tremors all day Primary Visit Diagnosis:Tremor [R25.1] Other Visit Diagnoses:History of traumatic brain injury [Z87.820] Diplopia [H53.2] Incoordination [R27.9] Abnormality of gait [R26.9] 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 If needed can take additional 1 tablet at time of MRI. Please do not drive or operate heavy machinery on the day of taking the Ativan.Disp: 2 tabletRfl: 0 Prescriptions as of 10/22/2024 - LORazepam (ATIVAN) 0.5 mg Take 1 [...] area three times a day. - vit A,C,D-Peat-Gifhdz (PRESERVISION AREDS) 2,148 mcg-113 mg-45 mg-17.4mg tab [...] once daily. 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 If needed can take additional 1 tablet at time of MRI. Please do not drive or operate heavy machinery on the day of taking the Ativan. Disposition: Return for Follow up after MRI and EEG with WAgnesN or TALISHA PA.. Follow-up and Disposition History for Encounter Date Provider Department Center 10/21/2024 [id number] GIL JR [facility] Encounter Status:Closed by SAUL GIL on 10/21/24 CNPN Observed: 10/16/2024 12:00 AM Status: COMPLETED Source: [facility] ([id number]) 1950 F Date Time Provider Department 10/16/24 [facility] MORE[facility]ON [facility] During your visit today, we recorded the following information about you: Mary Chavez LPN 10/16/2024 7:36 PM Signed Mary Reyes [facility] My Chart Rx Pool I have had [...] that her labs were further reviewed by Veterinarian and are okay and no need for [...] and why a cardiac MRI or seeing Coal Drier Operator for further work up is needed to [...] with verbalized understanding. Pt agreeable to see safety companion, and states if she is not able to see [facility] safety companion in [place], she prefers to see [facility] to stay in [place]. Jon Plasencia APRN.CNP 10/17/2024 11:48 AM Signed Order placed for the cardiology consult. 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 - vit A,C,G-Sbvo-Ceawxn (PRESERVISION AREDS) 2,148 mcg-113 mg-45 mg-17.4mg tab [...] of breath) [R06.02] 07/30/2024 Encounter Status:Closed by MALISSA HAWKINS on 10/17/24 MIRELLA Observed: 10/03/2024 12:00 AM Status: COMPLETED Source: [facility] Telephone (HEMAWS) MARY REYES ([id number]) 1950 F Date Time Provider Department 10/03/24 BOSSMAN DUGGAN During your visit today, we recorded the following information about you: Pratima Bhagat 10/03/2024 8:25 AM Signed Please review and advise CONSULT TO HEMATOLOGY Status: Needs Scheduling Requested appt date: Authorizing: Pete Morejon DO in [facility] Referral: [id number] (Authorized) Expires: 10/02/2025 Priority: Routine 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 Wendi Flynn 10/07/2024 3:27 PM Signed 2ND ATTEMPT-lvm for patient to return the call to schedule Zulma Higgins, ROCKY 10/08/2024 11:30 AM Signed Pt returned the call. Attempted to transfer pt to Hem/OC dept without success. LM with Janine to call pt back on her cell phone [phone] to schedule appt. Pratima Bhagat 10/09/2024 11:41 AM Signed Scheduled with patient Allergies As of Date: 10/03/2024 Noted Allergy Reaction VICODIN (HYDROCODONE-ACETAMINOPHE*03/25/2011 2 - Rash VIOXX (ROFECOXIB) 03/18/2005 8 [...] area three times a day. - vit A,C,B-Drrf-Adleuf (PRESERVISION AREDS) 2,148 mcg-113 mg-45 mg-17.4mg tab [...] Encounter Status:Closed by MARKO VÁZQUEZ on 10/09/24 MIRELLA Observed: 09/11/2024 12:00 AM Status: COMPLETED Source: [facility] Telephone ([facility]) MARY REYES ([id number]) 1950 F Date Time Provider Department 09/11/24 [...] of Date: 09/11/2024 Noted Allergy Reaction VICODIN (HYDROCODONE-ACETAMINOPHE*03/25/2011 2 - Rash VIOXX (ROFECOXIB) 03/18/2005 8 [...] area three times a day. - vit A,C,P-Zgpe-Lkhyhg (PRESERVISION AREDS) 2,148 mcg-113 mg-45 mg-17.4mg tab [...] Encounter Status:Closed by GAYLE JIMENEZ on 09/11/24 CYTOLOGY NON-GLASS SETTER Collected: 11:49 AM Status: F Source: [facility] Order Comment: Specimen Type : SPECIMEN OBTAINED BY ASPIRATION [facility]ing Facility: [facility] Address: [address] [place] [address] TYPE CODE TESTS RESULT OUT OF RANGE REFERENCE UNITS PATHOLOGY [id number] CASE REPORT Result Comment: Medical Cyto logy Report Case: [id number] Authorizing Provider: Gayle Jimenez MD Collected: 09/09/2024 11:49 AM Ordering Location: General Surgery Received: 09/09/2024 04:58 PM Pathologist: Matilde Lacy MD Specimen: Thyroid, Right, Lobe PATHOLOGY [id number] FINAL DIAGNOSIS Result Comment: A - Thyroid, right lobe, FNA Benign. Benign follicular cells and colloid. The following cell blocks were associated with this case: A1 Cell Block, Alcohol Fixed at 1146 EST PATHOLOGY [id number] GROSS DESCRIPTION Result Comment: A. Thyroid, Right, Lobe 30 cc clear pink CytoLyt with particles. ThinPrep and Cell Block prepared. Afirma received PATHOLOGY CDX2 CLINICAL HISTORY Thyroid Nodule Result Comment: Afirma received PATHOLOGY [facility]AB FINAL PERFORMING LAB Result Comment: Technical co mponent, teaching associate screening performed at [facility], [address] [place], [place] [address] CLIA# [id number] Diagnostic interpretation performed at [facility], [address] [place], [place] [address] CLIA# [id number] Prevention Specialist: Heber Henson M.D. Performed By: #### CYTONON # ### [facility] CLIA [id number] [address] [place] [address] PROCEDURE Observed: 09/09/2024 11:34 AM Status: COMPLETED Source: [facility] HNO ID: [id number] Author: NAHOMI JAMA LPN Service: ? Author [...] Visit completed when applicable. Nahomi Jama LPN PROGRESS Observed: 09/09/2024 11:27 AM Status: COMPLETED Source: [facility] HNO ID: [id number] Author: GAYLE JIMENEZ MD Service: ? Author [...] visit next week. Patient acknowledges the above. CNOV Observed: 09/09/2024 11:15 AM Status: COMPLETED Source: [facility] Office Visit (GENSWS) MARY REYES ([id number]) 1950 F Date Time Provider Department 09/09/24 [...] to your office visit today with the [facility] General Surgeons. Instructions After THYROID FINE NEEDLE [...] you have any questions or concerns @ [phone]. Please make an appointment to follow up in one week with your physician and thank you for choosing the [facility]. If you note any additional difficulties, questions, or concerns, you should contact our office immediately @ [phone] and ask to be transferred to the General Surgery department. Allergies As of Date: 09/09/2024 Noted Allergy Reaction VICODIN (HYDROCODONE-ACETAMINOPHE*03/25/2011 2 - Rash VIOXX (ROFECOXIB) 03/18/2005 8 - GI Upset Date Reviewed: 09/09/2024 Reviewed by: Nahomi Jama LPN - Fully Assessed Reason for Visit: Procedure [88] Primary Visit Diagnosis:Abnormal ultrasound of thyroid gland [R93.89] Order(s):US THYROID BIOPSY RIGHT (POC) SURG USE ONLY [[id number]] Order #: [id number]. #:[id number]: 1 CYTOLOGY NON-GLASS SETTER [[id number]] Order #: [id number]. #:[id number] Prescriptions as of 09/12/2024 - cholecalciferol, vitamin D3, (D3-1999 ORAL) Take by mouth. - cyanocobalamin (VITAMIN B-12) 1,000 mcg tab Take 1,000 mcg by mouth once daily. - triamcinolone acetonide (KENALOG) 0.5 % cream Apply to affected area three times a day. - vit A,C,L-Kbzo-Rthdjd (PRESERVISION AREDS) 2,148 mcg-113 mg-45 mg-17.4mg tab [...] once daily. 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 Instructions After THYROID FINE NEEDLE [...] you have any questions or concerns @ [phone]. Please make an appointment to follow up in one week with your physician and [facility]. If you note any additional difficulties, questions, or concerns, you should contact our office immediately @ [phone] and ask to be transferred to the General Surgery department. Encounter Status:Closed by GAYLE JIMENEZ on 09/12/24 PROGRESS Observed: 09/02/2024 11:40 AM Status: COMPLETED Source: [facility] HNO ID: [id number] Author: GABI ROWAN MA Service: ? Author Type: Crusher Machine Operator Type: Progress Notes Filed: 09/03/2024 14:13 Note [...] 04/30/2024 Last Colonoscopy: 08/09/2024 Gabi Rowan MA PROGRESS Observed: 09/02/2024 11:05 AM Status: COMPLETED Source: [facility] HNO ID: [id number] Author: GAYLE JIMENEZ MD Service: ? Author [...] N/V DDD (degenerative disc disease), lumbar Diulus, Haney Diverticulosis of colon (without mention of hemorrhage) [...] PROSTC AGRFT/ALGRFT Left 03/27/[address] [place], [facility] ARTHRP KNE CONDYLEANDPLATU MEDIALANDLAT COMPARTMENTS 10/04/10 Knee replacement, total Knee ARTHRP KNE CONDYLEANDPLATU MEDIALANDLAT COMPARTMENTS Right 10/01/2018 Dr. Mata, [facility] COLONOSCOPY FLX DX W/COLLJ SPEC WHEN [...] affected area three times a day. vit A,C,Z-Xcld-Ydhceb (PRESERVISION AREDS) 2,148 mcg-113 mg-45 mg-17.4mg tab [...] knee/foot trouble, denies arthritis, or denies gout. PHYSICAL EXAMINATION: General: The patient is 74 year old female, well nourished, well hydrated in no acute distress. The patient is oriented to time, place, and person. [...] discussed with the Patient or Patient's Authorized Internal Affairs Commander. As applicable, any other physician, advance practice provider, medical student, or other health professional student that will be observing or involved in the sensitive examination for educational or training purposes was discussed with the Patient or Authorized Internal Affairs Commander. The Patient or Authorized Internal Affairs Commander has agreed to proceed with the sensitive [...] I have answered all questions to the patient?s satisfaction and the patient has no further [...] Level: 3 - Low Gayle Jimenez MD CNOV Observed: 09/02/2024 11:00 AM Status: COMPLETED Source: [facility] Office Visit (GENSWS) MARY REYES ([id number]) 1950 F Date Time Provider Department 09/02/24 [...] N/V DDD (degenerative disc disease), lumbar Diulus, Haney Diverticulosis of colon (without mention of hemorrhage) [...] PROSTC AGRFT/ALGRFT Left 03/27/[address] [place], [facility] ARTHRP KNE CONDYLEANDPLATU MEDIALANDLAT COMPARTMENTS 10/04/10 Knee replacement, total Knee ARTHRP KNE CONDYLEANDPLATU MEDIALANDLAT COMPARTMENTS Right 10/01/2018 Dr. Mata, [facility] COLONOSCOPY FLX DX W/COLLJ SPEC WHEN [...] affected area three times a day. vit A,C,I-Iyji-Exjjql (PRESERVISION AREDS) 2,148 mcg-113 mg-45 mg-17.4mg tab [...] knee/foot trouble, denies arthritis, or denies gout. PHYSICAL EXAMINATION: General: The patient is 74 year old female, well nourished, well hydrated in no acute distress. The patient is oriented to time, place, and person. [...] discussed with the Patient or Patient's Authorized Internal Affairs Commander. As applicable, any other physician, advance practice provider, medical student, or other health professional student that will be observing or involved in the sensitive examination for educational or training purposes was discussed with the Patient or Authorized Internal Affairs Commander. The Patient or Authorized Internal Affairs Commander has agreed to proceed with the sensitive [...] I have answered all questions to the patient?s satisfaction and the patient has no further [...] Medical Decision Making Level: 3 - Low MD Yao Barrientos Laurie, MA 09/03/2024 2:13 PM Signed REVIEW OF SYSTEMS: General: The patient denies [...] 04/30/2024 Last Colonoscopy: 08/09/2024 Gabi Rowan MA Referring Provider: JON PLASENCIA [[id number]] Allergies As of Date: 09/02/2024 Noted Allergy Reaction VICODIN (HYDROCODONE-ACETAMINOPHE*03/25/2011 2 - Rash VIOXX (ROFECOXIB) 03/18/2005 8 - GI Upset Date Reviewed: 09/02/2024 Reviewed by: Gabi Rowan MA - Fully Assessed Reason for Visit: Consult [173] Thyroid Nodule [3960] Visit Diagnosis:Abnormal ultrasound of thyroid gland [R93.89] Order(s):CONSULT TO GENERAL SURGERY [9011] Order #: [id number]: 1 Prescriptions as of 09/03/2024 - cholecalciferol, vitamin D3, (D3-2000 ORAL) Take by mouth. - cyanocobalamin (VITAMIN B-12) 1,000 mcg tab Take 1,000 mcg by mouth once daily. - triamcinolone acetonide (KENALOG) 0.5 % cream Apply to affected area three times a day. - vit A,C,N-Xawe-Hvecrh (PRESERVISION AREDS) 2,148 mcg-113 mg-45 mg-17.4mg tab [...] [M50.*07/30/2024 SOB (shortness of breath) [R06.02] 07/30/2024 Letter Text Encounter Status:Closed by GAYLE JIMENEZ on 09/03/24 MIRELLA Observed: 09/02/2024 12:00 AM Status: COMPLETED Source: [facility] MARY [facility] ([id number]) 1950 F Date Time Provider Department 09/02/24 PETE MOREJON FAMPWS During your visit today, we recorded the following information about you: Gayle Sousa LPN 09/02/2024 12:09 PM Signed I received a message today at 11:55 concerning videos to watch about my condition. However the videos are about a colonoscopy I had done 08/09/2024. Luna Bruce APRN.JOYCE 09/02/2024 1:45 PM Signed Just ignore those. We recently had a program update and I wonder if there are some glitches. Thank you, Luna Bruce APRN.Zulma Elliott LPN 09/02/2024 2:39 PM Signed Patient notified of update, verbalizes understanding of instructions. Zulma Gonzalez LPN Allergies As of Date: 09/02/2024 Noted Allergy Reaction VICODIN (HYDROCODONE-ACETAMINOPHE*03/25/2011 2 - Rash VIOXX (ROFECOXIB) 03/18/2005 8 [...] area three times a day. - vit A,C,X-Akgk-Zukepx (PRESERVISION AREDS) 2,148 mcg-113 mg-45 mg-17.4mg tab [...] Encounter Status:Closed by ZULMA GONZALEZ on 09/02/24 MIRELLA Observed: 08/30/2024 12:00 AM Status: COMPLETED Source: [facility] MARY REYES ([id number]) 1950 F Date Time Provider Department 08/30/24 PETE MOREJON [employer] During your visit today, we recorded the following information about you: Allergies As of Date: 08/30/2024 Noted Allergy Reaction VICODIN (HYDROCODONE-ACETAMINOPHE*03/25/2011 2 - Rash VIOXX (ROFECOXIB) 03/18/2005 8 - GI Upset Date Reviewed: 08/09/2024 Reviewed by: Jeimy Aquino, RN - Fully Assessed Prescriptions as of 10/11/2024 [...] area three times a day. - vit A,C,Q-Nxhm-Pyhipr (PRESERVISION AREDS) 2,148 mcg-113 mg-45 mg-17.4mg tab [...] Encounter Status:Closed by JON PLASENCIA on 10/11/24 MIRELLA Observed: 08/28/2024 12:00 AM Status: COMPLETED Source: [facility] MARY REYES ([id number]) 1950 F Date Time Provider Department 08/28/24 [facility] During your visit today, we recorded the following information about you: Jon Plasencia APRN.INTERMISSION COORDINATOR 08/28/2024 12:34 PM Signed Please let her know that she has thyroid nodules and radiology is recommending she have a fine needle biopsy. Please assist her to schedule for this. Jon Plasencia APRN.Gayle Benavidez LPN 08/28/2024 3:03 PM Signed Left message to return call. Suze Lyon, RN 08/29/2024 12:00 PM Signed Patient calls and notified of results and providers instructions. Patient verbalizes understanding. Transferred to schedule consult to general surgery. Suze Lyon RN Allergies As of Date: 08/28/2024 Noted Allergy Reaction VICODIN (HYDROCODONE-ACETAMINOPHE*03/25/2011 2 - Rash VIOXX (ROFECOXIB) 03/18/2005 8 - GI Upset Date Reviewed: 08/09/2024 Reviewed by: Jeimy Aquino RN - Fully Assessed Primary Visit Diagnosis:Thyroid nodule [E04.1] Order(s):CONSULT TO GENERAL SURGERY [9092] Order #: [id number]: 1 FUTURE Prescriptions as of 08/29/2024 - cholecalciferol, vitamin D3, (D3-1999 ORAL) Take by mouth. - cyanocobalamin (VITAMIN B-12) 1,000 mcg tab Take 1,000 mcg by mouth once daily. - triamcinolone acetonide (KENALOG) 0.5 % cream Apply to affected area three times a day. - vit A,C,P-Hzbf-Mqagxf (PRESERVISION AREDS) 2,148 mcg-113 mg-45 mg-17.4mg tab [...] Encounter Status:Closed by SUZE LYON on 08/29/24 MONOCLONAL PROT UR W/INTERP Collected: 08/26/2024 11:58 AM Status: F Source: [facility] Comment: Specimen Type : URINE SPECIMEN Ordering Facility: [facility] Address: [address] [place] [address] TYPE CODE TESTS RESULT OUT OF RANGE REFERENCE UNITS LAB PA UMPA RESULT No M protein is identified. No M protein is identified. [facility] Reviewed by Dr. Lucie Francis MD Performed By: #### URMPA ### # [facility] CLIA [id number] [address] [place] [address] STATES OF [facility] PROT/CREAT UR Collected: 11:58 AM Status: F Source: [facility] Comment: Specimen Type : URINE SPECIMEN Ordering Facility: [facility] Address: [address] [place] [address] TYPE CODE TESTS RESULT OUT OF RANGE REFERENCE UNITS LAB 2888-6(LOINC) Prot Ur-mCnc 21 High 0-20 mg/dL LAB 2161-8(LOINC) Creat Ur-mCnc 227.0 20.0-300.0 mg/dL LAB 2890-2(LOINC) Prot/Creat Ur 0.09 <0.15 mg/mg Result Comment: Adult Protei karime Categories: <0.15 mg/mg is considered normal to mildly increased 0.15 - 0.50 mg/mg is considered moderately increased >0.50 mg/mg is considered severely increased KDIGO. (2013). KDIGO 2012 Clinical Practice Guideline for the Evaluation and Management of Chronic Kidney Disease. Official Journal of the International Society of Nephrology, 3(1), 1-150. Performed By: #### 2890-2 ## ## [facility] CLIA [id number] [address] [place] [address] OF DEMETRIS IMMUNOFIXATION SCREEN, SERUM Collected: 08/26/2024 11:51 AM Status: F Source: [facility] Comment: Specimen Type : BLOOD SPECIMEN Ordering Facility: [facility] Address: [address] [place] [address] TYPE CODE TESTS RESULT OUT OF RANGE REFERENCE UNITS LAB MPAR MPA RESULT No M protein is identified. No M protein is identified. LAB [facility] STAFF REVIEW ([facility]) Reviewed by Dr. Lucie Francis MD Performed By: #### IFESC ### # [facility] CLIA [id number] [address] [place] [address] [place] KAPPA/ARTHUR,FREE,SER Collected: 08/26/19 25 11:51 AM Status: F Source: [facility] Order Comment: Specimen Type : BLOOD SPECIMEN Ordering Facility: [facility] Address: [address] [place] [address] TYPE CODE TESTS RESULT OUT OF RANGE REFERENCE UNITS LAB 52144-1(LOINC) [place] LC Free Ser-mCnc 34.9 High 3.3-19.4 mg/L Result Comment: Rarely, incr eased serum free light chains levels may not be detected or accurately quantified due to prozone phenomenon or in high viscosity samples using this immunoturbidimetric assay. Correlation with other laboratory results and clinical findings is recommended. The [place] Free Light Chain was performed using the Binding Site Optilite immunoturbidimetric method. Result obtained with different assay methods or kits cannot be used interchangeably. LAB 45618-3(LOINC) Lambda LC Free SerPl-mCnc 30.6 High 5.7-26.3 mg/L Result Comment: Rarely, incr eased serum free light chains levels may not be detected or accurately quantified due to prozone phenomenon or in high viscosity samples using this immunoturbidimetric assay. Correlation with other laboratory results and clinical findings is recommended. The Lambda Free Light Chain was performed using the Binding Site Optilite immunoturbidimetric method. Result obtained with different assay methods or kits cannot be used interchangeably. LAB 83444-4(LOINC) [place] LC/Lambda Ser 1.14 0.26-1.65 Performed By: #### KLFRS ### # [facility] CLIA [id number] [address] [place], [place] [id number] [place] US THYROID/PARATHYROID Observed: 025 11:48 AM Status: F Source: [facility] * * *Final Report* * * DATE OF EXAM: Aug 26 2024 11:48AM WRU 1048 - US THYROID/PARATHYROID / PROCEDURE REASON: [...] 2 points Echogenicity: Hypoechoic, 2 points Shape: Qumle-ohwl-wysd, 0 points Margin: Smooth, 0 points Echogenic [...] 2 points Echogenicity: Hypoechoic, 2 points Shape: Hrajjy-zdwf-tngq, 3 points Margin: Smooth, 0 points Echogenic [...] 2 points Echogenicity: Hypoechoic, 2 points Shape: Mcbpp-gprp-wchp, 0 points Margin: Smooth, 0 points Echogenic [...] be communicated with the ordering provider via [employer] staff message or phone message by [employer] within 2 business days of report finalization. --END OF FINDING-- Vaccine Key Customer Leader: REVA Transcribe Date/Time: Aug 27 2024 2:25P Dictated by : MO HO MD This examination was interpreted and the report reviewed and electronically signed by: MO HO MD on Aug 27 2024 3:16PM EST [id number] ACTIONABLE PROGRESS Observed: 08/26/2024 11:30 AM Status: COMPLETED Source: [facility] ID: [id number] Author: BRIANDA MOSER RDMS Service: ? Author Type: Skiver Blockers Type: Progress Notes Filed: 08/26/2024 11:46 Note [...] PATIENT PRESENTS WITH AN IMPLANTABLE OR ATTACHED BULKHEAD CARPENTER: No RADIOLOGY DEPARTMENT: Ultrasound PERIPHERAL IV DATA: Not applicable SIGNED BY: Brianda Moser RDMS RVT August 26, 2024 11:45 AM CNPN Observed: 08/21/2024 12:00 AM Status: COMPLETED Source: [facility] Telephone ([facility]) MARY REYES ([id number]) 1950 F Date Time Provider Department 08/21/24 PETE MOREJON [employer] During your visit today, we recorded the following information about you: Pete Morejon DO 08/21/2024 8:30 PM Signed Please let her [...] are ordered then will need to see Coal Drier Operator in the future as well. No signs of heart failure seen DO Sveta Hammer Brittany L, MA 08/22/2024 9:50 AM Signed Patient active [email or web address]. Patient notified via [employer] message. Please assist patient with scheduling the orders PCP placed. JEANNIE Jackson Stephanie 08/22/2024 12:37 PM Signed 1st attempt - left message for patient to return call. When she calls, soha se schedule MRIs, labs and US ordered on 08/21/24 by PCP. Zulma Chamorro, RN 08/26/2024 10:40 AM Signed [facility] pharmacy scheduler Nina called to notify Dr. Morejon that they do not do the Cardiac test that is needed. Attempted to notify pt. answered and states pt is currently in restroom. Will attempt to contact pt again in a few minutes to get all her testing scheduled. Zulma Sinha, RN 08/26/2024 10:40 AM Signed Called pt and notified [facility] unable to do the MRI cardiac [...] Zulma Sinha, ROCKY 08/26/2024 1:14 PM Signed [facility] does not have Open MRI machines. What they do have is open-ended MRI's that provide more room. Discussed this with pt. She is still apprehensive about having this done. And she would like to have the MRIs done as close to Jon as she can. Pete Morejon DO 08/26/2024 4:52 PM Signed Okay for her to take the Valium prior to the MRI If she can't do the MRI, then just needs to be seen by Coal Drier Operator for further evaluation prior to testing further [...] MA 08/27/2024 8:40 AM Signed Spoke with [place] technical adjuster Sully Rosales, she informed me that it [...] scheduled to set up appt for MRI. ROCKY Hernandez Ashley 08/28/2024 11:16 AM Signed Patient chose not to schedule MRI at this time due to not being satisfied with locations and available appointment times. 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] Order(s):US THYROID/PARATHYROID [5960262] Order #: [id number] FUTURE KAPPA/ARTHUR,FREE,SER [SQKLFRS] Order #: [id number] FUTURE IMMUNOFIXATION SCREEN, SERUM [SQIFESC] Order #: [id number] FUTURE MONOCLONAL PROT UR W/INTERP [SQURMPA] Order #: [id number] FUTURE PROTEIN / CREATININE RATIO [SQPRATIO] Order #: [id number] FUTURE NM SPECT/CT CARDIAC AMYLOID [6860266] Order #: [id number] FUTURE MRI CARDIAC MORPH FUNC WO/W IVCON [6942569] Order #: [id number] FUTURE MRI CARDIAC VELOCITY FLOW MAP [9239842] Order #: [id number] FUTURE [] iv contrast (will be provided with radiology test)MRI Cardiac w/Qflow Inject, intravenously, once for 1 [...] protocol in the MR contrast administration guidelines linkDisp: 1 EachRfl: 0 [] diazePAM (VALIUM) 10 mg tabletTake 1 tablet by mouth once in interventional radiology for 1 dose.Disp: 1 tabletRfl: 1 Prescriptions as of 08/28/2024 - cholecalciferol, vitamin D3, (D3-2000 ORAL) Take by mouth. - cyanocobalamin (VITAMIN B-12) 1,000 mcg tab Take 1,000 mcg by mouth once daily. - triamcinolone acetonide (KENALOG) 0.5 % cream Apply to affected area three times a day. - vit A,C,O-Ueaf-Tmnshl (PRESERVISION AREDS) 2,148 mcg-113 mg-45 mg-17.4mg tab [...] once daily. 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 Encounter Status:Closed by RAUL NEWBY on 08/28/24 ECHO Observed: 08/15/2024 10:58 AM Status: F Source: [facility] Echocardiography Report: Tra nsthoracic Echo [facility] Date of service: 08/15/2024 10:58:29 AM CHEMICAL ENGINEER Ordering physician: PETE MOREJON Indication: Shortness of Breath Technologist: Blanca Pelayo [facility] Interpreting physician: Ronald Padilla MD PATIENT: Name: [...] * * * Final * * * CC [employer] Medical Image : [id number] CT CHEST WO IVCON Observed: 08/15/2024 10:24 AM Status: F Source: [facility] * * *Final Report* * * DATE OF EXAM: Aug 15 2024 10:24AM [facility] 0541 - CT CHEST WO IVCON / [...] be communicated with the ordering provider via [employer] staff message or phone message by [employer] within 2 business days of report finalization. --END OF FINDING-- Vaccine Key Customer Leader: REVA Transcribe Date/Time: 2024 5:33P Dictated by : SYLVESTER KING MD This examination was interpreted and the report reviewed and electronically signed by: SYLVESTER KING MD on 2024 5:36PM EST [id number] ACTIONABLE PROGRESS Observed: 08/15/2024 10:00 AM Status: COMPLETED Source: [facility] HNO ID: [id number] Author: NAHOMI LANDAVERDE, RT(R) Service: ? Author Type: Informatica Developer Type: Progress Notes Filed: 08/15/2024 14:33 Note [...] PATIENT PRESENTS WITH AN IMPLANTABLE OR ATTACHED BULKHEAD CARPENTER: No RADIOLOGY DEPARTMENT: CT; Exam(s) Completed: Chest PERIPHERAL IV DATA: Not applicable SIGNED BY: RT Kevin(R) August 15, 2024 2:33 PM [id number] Observed: 08/09/2024 10:14 AM Status: COMPLETED Source: [facility] HNO ID: [id number] Author: JEIMY AQUINO RN Service: ? Author Type: Registered Nurse Type: [id number] Filed: 08/09/2024 10:14 Note Text: The patient received a copy of Colonoscopy discharge instructions that contain information for how to contact the physician who performed the procedure and when to seek medical care. HISTORY PHYSICAL Observed: 08/09/2024 10:00 AM Status: COMPLETED Source: [facility] HNO ID: [id number] Author: THOM RUIZ MD Service: General Surgery Author Type: Physician Type: H&P Filed: 08/09/2024 08:49 Note Text: Risk Mgr offered: Patient declines. Arshad is a 73 [...] L3 SAB0 IAB0 Ectopic0 Multiple0 Live Births0 Ambulatory Service Representative History LMP: Postmenopausal Age at Menarche: Age at First : Age at Menopause: Ambulatory Service Representative History Comments: Sexual Activity: Yes; Male Contraception: No contraception data on record PAST MEDICAL HISTORY PAST MEDICAL HISTORY Diagnosis Date Arthritis left knee, back Chronic kidney disease, stage 3a (HCC) 05/26/2023 Complication of anesthesia N/V DDD (degenerative disc disease), lumbar Diulus, Haney Diverticulosis of colon (without mention of hemorrhage) [...] PROSTC AGRFT/ALGRFT Left 03/27/[address] [place], [facility] ARTHRP KNE CONDYLEANDPLATU MEDIALANDLAT COMPARTMENTS 10/04/10 Knee replacement, total Knee ARTHRP KNE CONDYLEANDPLATU MEDIALANDLAT COMPARTMENTS Right 10/01/2018 Dr. Mata, [facility] COLONOSCOPY FLX DX W/COLLJ SPEC WHEN [...] discussed with the Patient or Patient's Authorized Internal Affairs Commander. As applicable, any other physician, advance practice provider, medical student, or other health professional student that will be observing or involved in the sensitive examination for educational or training purposes was discussed with the Patient or Authorized Internal Affairs Commander. The Patient or Authorized Internal Affairs Commander has agreed to proceed with the sensitive [...] external genitalia normal, normal Bartholin's glands, urethra, Bithlo's glands, no vulvar lesions, good vaginal support, [...] has been reviewed and the patient has been examined. The contents accurately reflect the patient's condition with the following additions or revisions since the HANDP was completed. Examination indicates no changes. This HANDP can be found in the attached. SIGNATURE: Thom Ruiz III, MD PATIENT NAME: Mary Reyes DATE: August 09, 2024 TIME: 8:49 AM COLONOSCOPY Observed: 08/09/2024 9:28 AM Status: F Source: [facility] Gastrointestinal Endoscopy Patient Name: Mary Reyes Procedure [...] prior dose. Procedure Code(s): --- Professional --- 82968, Colonoscopy, flexible; diagnostic, including collection of specimen(s) by brushing or washing, when performed (separate procedure) G0500, Moderate sedation services provided by the same physician or other qualified health personal care aid performing a gastrointestinal endoscopic service that sedation supports, requiring the presence of an independent trained observer to assist in the monitoring of the patient's level of consciousness and physiological status; initial 15 minutes of intra-service time; patient age 5 years or older (additional time may be reported with 94399, as appropriate) Diagnosis Code(s): --- Professional --- Z12.11, Encounter for screening for malignant neoplasm of colon K64.8, Other hemorrhoids K57.30, Diverticulosis of large intestine without perforation or abscess without bleeding CPT copyright 2020 [employer]. All rights reserved. The codes documented in this report are preliminary and upon installation superintendent review may be revised to meet current compliance requirements. Attending Participation: I personally performed the entire procedure. Scope In: 9:41:46 AM Scope Out: 9:55:28 AM MD Thom Johnson MD 08/09/2024 9:58:29 AM This report has been signed electronically by Thom Ruiz MD Number of Addenda: 0 Note Initiated On: 08/09/2024 9:28 AM Estimated Blood Loss: Estimated blood loss: none. PROGRESS Observed: 07/30/2024 4:15 PM Status: COMPLETED Source: [facility] HNO ID: [id number] Author: PETE MOREJON DO Service: ? Author [...] weight loss. BMI 38.49 kg/(m2) Pete Morejon DO PROGRESS Observed: 07/30/2024 12:31 PM Status: COMPLETED Source: [facility] HNO ID: [id number] Author: MOREJON, PETE, DO Service: ? Author Type: Physician Type: [...] 5.6 4.3 - 5.6 % Final Comment: [employer] guidelines indicate that patients with HgbA1c in the range 5.7-6.4% are at increased risk for development of diabetes, and intervention by lifestyle modification may be beneficial. HgbA1c greater or equal to 6.5% is considered diagnostic of diabetes. 11/24/2023 5.8 (H) 4.3 - 5.6 % Final Comment: [employer] guidelines indicate that patients with HgbA1c in the range 5.7-6.4% are at increased risk for development of diabetes, and intervention by lifestyle modification may be beneficial. HgbA1c greater or equal to 6.5% is considered diagnostic of diabetes. 05/23/2023 5.5 4.3 - 5.6 % Final Comment: [employer] guidelines indicate that patients with HgbA1c in the range 5.7-6.4% are at increased risk for development of diabetes, and intervention by lifestyle modification may be beneficial. HgbA1c greater or equal to 6.5% is considered diagnostic of diabetes. 05/09/2022 5.8 (H) 4.3 - 5.6 % Final Comment: [employer] guidelines indicate that patients with HgbA1c in the range 5.7-6.4% are at increased risk for development of diabetes, and intervention by lifestyle modification may be beneficial. HgbA1c greater or equal to 6.5% is considered diagnostic of diabetes. 04/19/2021 5.9 (H) 4.3 - 5.6 % Final Comment: [employer] guidelines indicate that patients with [...] N/V DDD (degenerative disc disease), lumbar Diulus, Haney Diverticulosis of colon (without mention of hemorrhage) [...] PROSTC AGRFT/ALGRFT Left 03/27/[address] [place], [facility] ARTHRP KNE CONDYLEANDPLATU MEDIALANDLAT COMPARTMENTS 10/04/10 Knee replacement, total Knee ARTHRP KNE CONDYLEANDPLATU MEDIALANDLAT COMPARTMENTS Right 10/01/2018 Dr. Mata, [facility] COLONOSCOPY FLX DX W/COLLJ SPEC WHEN [...] affected area three times a day. vit A,C,H-Imil-Mzejfj (PRESERVISION AREDS) 2,148 mcg-113 mg-45 mg-17.4mg tab [...] Resp 20 Wt 255 lb (115.7kg) Gen: AANDOX3, NAD, non-toxic appearing HEENT: PERRLA, EOMs intact b/l, nares without drainage, pharynx without erythema, exudate, lesions, or drainage. Uvula midline. Neck: No LAD, no [...] and benefit for weight loss. BMI 38.49 kg/(m2) 2. SOB (shortness of breath) - ICD9: [...] benefit of weight loss. BMI 38.49 kg/(m2) - ECHO - PERFLUTREN LIPID MICROSPHERES 1.1 [...] plan. See patient instructions. Pete Morejon DO [address] [place] [address] CNOV Observed: 07/30/2024 12:00 PM Status: COMPLETED Source: [facility] ([id number]) 1950 F Date Time Provider Department 07/30/24 12:00 PM PETE MOREJON [facility] During your visit today, we recorded the following information about you: Temperature Pulse Respiration Blood pressure 98 degrees 84/minute 20/minute 126/70 Weight 115.7 kg Pete Morejon, 07/30/2024 4:16 PM Signed CC: Mary Reyes [...] 5.6 4.3 - 5.6 % Final Comment: [employer] guidelines indicate that patients with HgbA1c in the range 5.7-6.4% are at increased risk for development of diabetes, and intervention by lifestyle modification may be beneficial. HgbA1c greater or equal to 6.5% is considered diagnostic of diabetes. 11/24/2023 5.8 (H) 4.3 - 5.6 % Final Comment: [employer] guidelines indicate that patients with HgbA1c in the range 5.7-6.4% are at increased risk for development of diabetes, and intervention by lifestyle modification may be beneficial. HgbA1c greater or equal to 6.5% is considered diagnostic of diabetes. 05/23/2023 5.5 4.3 - 5.6 % Final Comment: [employer] guidelines indicate that patients with HgbA1c in the range 5.7-6.4% are at increased risk for development of diabetes, and intervention by lifestyle modification may be beneficial. HgbA1c greater or equal to 6.5% is considered diagnostic of diabetes. 05/09/2022 5.8 (H) 4.3 - 5.6 % Final Comment: [employer] guidelines indicate that patients with HgbA1c in the range 5.7-6.4% are at increased risk for development of diabetes, and intervention by lifestyle modification may be beneficial. HgbA1c greater or equal to 6.5% is considered diagnostic of diabetes. 04/19/2021 5.9 (H) 4.3 - 5.6 % Final Comment: [employer] guidelines indicate that patients with [...] N/V DDD (degenerative disc disease), lumbar Diulus, Haney Diverticulosis of colon (without mention of hemorrhage) [...] PROSTC AGRFT/ALGRFT Left 03/27/[address] [place], [facility] ARTHRP [place] CONDYLEANDPLATU MEDIALANDLAT COMPARTMENTS 10/04/10 Knee replacement, total Knee ARTHRP [place] CONDYLEANDPLATU MEDIALANDLAT COMPARTMENTS Right 10/01/2018 Dr. Mata, [facility] COLONOSCOPY FLX DX W/COLLJ SPEC WHEN [...] affected area three times a day. vit A,C,P-Muuv-Ytlwhn (PRESERVISION AREDS) 2,148 mcg-113 mg-45 mg-17.4mg tab [...] Resp 20 Wt 255 lb (115.7kg) Gen: AANDOX3, NAD, non-toxic appearing HEENT: PERRLA, EOMs intact b/l, nares without drainage, pharynx without erythema, exudate, lesions, or drainage. Uvula midline. Neck: No LAD, no [...] and benefit for weight loss. BMI 38.49 kg/(m2) 2. SOB (shortness of breath) - ICD9: [...] benefit of weight loss. BMI 38.49 kg/(m2) - ECHO - PERFLUTREN LIPID MICROSPHERES 1.1 [...] - ICD9: 722.4, ICD10: M50.30 stable Pete Morejno DO Return if no improvement. Follow up with Pete Morejon DO. To ER if develops chest pain, shortness of breath. Discussed risks, benefits, alternatives, and potential side effects of medications. Patient/Guardian expressed understanding and agreed with the plan. See patient instructions. Pete Morejon DO [address] [place] [address] Pete Morejon DO 07/30/2024 12:50 PM Addendum Trigger finger on left hand Epsom salt soak with 1/4-1/2 cup of epsom salts in warm/hot water and soak for 15-20 minutes once a day Then apply Voltaren 1% cream AM and PM on joint area Will do CT chest and ECHO for the shortness of breath to investigate Dr. Gil Neurologist Pete Morejon DO 07/30/2024 4:16 PM Signed Mary Reyes is a 73 year old [...] optometry/ophthalmology Assessment/Plan Medicare annual wellness visit, subsequent (Z.) - Counseled on healthy diet and regular exercise - Fall avoidance information provided - Personalized prevention plan provided - Discussed need for and benefit of weight loss. BMI 38.49 kg/(m2) Pete Morejon DO Allergies As of Date: 07/30/2024 Noted Allergy Reaction VICODIN (HYDROCODONE-ACETAMINOPHE*03/25/2011 2 - Rash VIOXX (ROFECOXIB) 03/18/2005 8 - GI Upset Date Reviewed: 07/30/2024 Reviewed by: Mary Chavez LPN - Fully Assessed Reason for Visit: Yearly Exam [187] Primary Visit Diagnosis:Medicare annual wellness visit, subsequent [Z00.00] Other Visit Diagnoses:SOB (shortness of breath) [R06.02] Tremor [R25.1] Hypertension, essential [I10] LVH (left ventricular hypertrophy) [I51.7] Chronic kidney disease, stage 3a (HCC) [N18.31] Dyslipidemia [E78.5] Hyperlipidemia, mixed [E78.2] Vitamin D deficiency [E55.9] Vitamin B12 deficiency [E53.8] IFG (impaired fasting glucose) [R73.01] DDD (degenerative disc disease), cervical [M50.30] Order(s):CT CHEST WO IVCON [5948523] Order #: [id number] FUTURE ECHO [118405] Order #: [id number]: 1 FUTURE CONSULT TO NEUROLOGY [9098] Order #: [id number]: 1 FUTURE Prescriptions as of 07/30/2024 - cholecalciferol, vitamin D3, (D3-1999 ORAL) Take by mouth. - cyanocobalamin (VITAMIN B-12) 1,000 mcg tab Take 1,000 mcg by mouth once daily. - triamcinolone acetonide (KENALOG) 0.5 % cream Apply to affected area three times a day. - vit A,C,E-Lctm-Ztfjyt (PRESERVISION AREDS) 2,148 mcg-113 mg-45 mg-17.4mg tab [...] once daily. 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 Gil Neurologist Encounter Status:Closed by PETE MOREJON on 07/30/24 BAS METAB 1999 PNL SERPL Collected: 11:01 AM Status: F Source: [facility] Order Comment: Specimen Type : BLOOD SPECIMEN Ordering Facility: [facility] Address: [address] [place] [address] TYPE CODE TESTS RESULT OUT OF RANGE REFERENCE UNITS LAB 2345-7(LOINC) Glucose SerPl-mCnc 109 High 74-99 mg/dL Result Comment: The [place] Diabetes Association (ADA) provides guidance for cutoff [...] Standards of Medical Care in Diabetes 2016, [place] Diabetes Association. Diabetes Care. 2016.39(Suppl 1). LAB 3094-0(LOINC) BUN SerPl-mCnc 16 7-21 mg/ dL LAB 2160-0(LOINC) Creat SerPl-mCnc 0.89 0.58-0.96 mg/dL LAB 2951-2(LOINC) Sodium SerPl-sCnc 140 136-144 mmol/L LAB 2823-3(LOINC) Potassium SerPl-sCnc 3.8 3.7-5.1 mmol/L LAB 2075-0(LOINC) Chloride SerPl-sCnc 104 98-107 mmol/L LAB 2028-9(LOINC) CO2 SerPl-sCnc 29 22-30 mmo l/L LAB 84010-8(LOINC) Anion Gap SerPl-sCnc 7 Low 8-15 mmol/L LAB 07341-7(LOINC) Calcium SerPl-mCnc 9.2 8.5-10.2 mg/dL LAB 17195-6(LOINC) Creatinine + eGFR Pnl SerPlBld 69 >=60 mL/min/1 .73m??? Result Comment: Estimated Gl omerular Filtration Rate (eGFR) is calculated using the 2020 CKD-EPI creatinine equation. This equation utilizes serum creatinine, sex, and age as parameters. The creatinine assay has traceable calibration to isotope dilution-mass spectrometry. Refer to KDIGO guidelines for clinical interpretation. In patients with unstable renal function, e.g. those with acute kidney injury, the eGFR may not accurately reflect actual GFR. Performed By: #### 47935-3 # ### [facility] CLIA [id number] [address] [place] [address] [place] CBC W AUTO DIFF BLD Collected: 07/23/2024 11:01 AM S tatus: F Source: [facility] Order Comment: Specimen Type : BLOOD SPECIMEN Ordering Facility: [facility] Address: [address] [place] [address] TYPE CODE TESTS RESULT OUT OF RANGE REFERENCE UNITS LAB 6690-2(LOINC) WBC # Bld Auto 7.56 3.70-11.00 k/uL LAB 789-8(LOINC) RBC # Bld Auto 4.99 3.90-5.20 m/ uL LAB 718-7(LOINC) Hgb Bld-mCnc 13.8 11.5-15.5 g/dL LAB 4544-3(LOINC) Hct VFr Bld Auto 43.5 36.0-46.0 % LAB 787-2(LOINC) MCV RBC Auto 87.2 80.0-100.0 fL LAB 785-6(LOINC) MCH RBC Qn Auto 27.7 26.0-34.0 p g LAB 786-4(LOINC) MCHC RBC Auto-mCnc 31.7 30.5-36.0 g/dL LAB 64884-0(LOINC) RDW RBC-Rto 13.2 11.5-15.0 % LAB 777-3([facility]) Platelet # Bld Auto 293 150-400 k/uL LAB 04175-4([facility]) PMV Bld Auto 10.7 9.0-12.7 fL LAB 770-8([facility]) Neutrophils/leuk NFr Bld Auto 54.9 % LAB 751-8([facility]) Neutrophils # Bld Auto 4.16 1.45-7.50 k/uL LAB 736-9([facility]) Lymphocytes/leuk NFr Bld Auto 26.6 % LAB 731-0([facility]) Lymphocytes # Bld Auto 2.01 1.00-4.00 k/uL LAB 5905-5([facility]) Monocytes/leuk NFr Bld Auto 12.2 % LAB 742-7([facility]) Monocytes # Bld Auto 0.92 High <0.87 k/uL LAB 713-8([facility]) Eosinophil/leuk NFr Bld Auto 4.8 % LAB 711-2([facility]) Eosinophil # Bld Auto 0.36 <0.46 k/uL LAB 706-2([facility]) Basophils/leuk NFr Bld Auto 1.2 % LAB 704-7([facility]) Basophils # Bld Auto 0.09 <0.11 k/uL LAB 01851-3([facility]) Imm Granulocytes/omkar k NFr Bld Auto 0.3 % LAB 89042-5([facility]) Imm Granulocytes # Bld Auto <0.03 <0.10 k/uL LAB 79565-1([facility]) nRBC/100 WBC Bld-Rto 0.0 /100 WBC LAB 771-6([facility]) nRBC # Bld Auto <0.01 <0.01 k/u L LAB 77278-6([facility]) Differential method Bld Auto Performed By: #### 01457-6 # ### [facility] CLIA [id number] [address] [place] [address] [place] 25(OH)D3 SERPL-NC Collected: 07/23/20 24 11:01 AM Status: F Source: [facility] Order Comment: Specimen Type : BLOOD SPECIMEN Ordering Facility: [facility] Address: [address] [place] [address] TYPE CODE TESTS RESULT OUT OF RANGE REFERENCE UNITS LAB 1988-09(INC) 25(OH)D3 SerPl-mCnc 39.3 31.0-80.0 ng/mL Result Comment: Classificati on of 25 [place] Vitamin D status: Deficiency/Insufficiency: < or = 30 ng/ml. Sufficiency/Optimal Levels: 31-80 ng/mL Toxicity: > 100 ng/mL. Test performed by chemiluminescent immunoassay. Performed By: #### 1988-09 ## ## [facility] CLIA [id number] [address] [place] [address] OF [facility] LIPID 1996 PNL SERPL Collected: 024 11:01 AM Status: F Source: [facility] Comment: Specimen Type : BLOOD SPECIMEN Ordering Facility: [facility] Address: [address] [place] [address] TYPE CODE TESTS RESULT OUT OF RANGE REFERENCE UNITS LAB 3-3(LOINC) Cholest SerPl-mCnc 161 <200 mg/dL Result Comment: <200 mg/dL, Desirable 200-239 mg/dL, Borderline high >239 mg/dL, High LAB 2571-8(LOINC) Trigl SerPl-mCnc 93 <150 mg/dL Result Comment: <150 mg/dL, Normal 150-199 mg/dL, Borderline high 200-499 mg/dL, High >499 mg/dL, Very high LAB 2085-9(LOINC) HDLc SerPl-mCnc 42 >39 mg/dL Result Comment: 40-59 mg/dL, Acceptable >59 mg/dL, High: Negative risk factor for coronary heart disease <40 mg/dL, Low: Positive risk factor for coronary heart disease LAB 69151-7(LOINC) NonHDLc SerPl-mCnc 119 <130 mg/dL Result Comment: <130 mg/dL, Optimal 130-159 mg/dL, Near optimal/above optimal 160-189 mg/dL, Borderline high 190-219 mg/dL, High >219 mg/dL, Very high Secondary prevention optimal non HDL Cholesterol levels are recommended to be <100 mg/dL LAB FT FASTING TIME 12 hrs LAB 70614-6(LOINC) VLDLc SerPl Calc-mCnc 19 <30 mg/dL LAB 9830-1([facility]) Cholest/HDLc SerPl 3.83 <5.10 LAB 2089-1([facility]) LDLc SerPl-mCnc 100 High <100 mg/dL Result Comment: <100 mg/dL, Optimal 100-129 mg/dL, Near optimal/above optimal 130-159 mg/dL, Borderline high 160-189 mg/dL, High >189 mg/dL, Very high Secondary prevention optimal LDL Cholesterol levels are recommended to be < 70 mg/dL LAB 12109-1([facility]) LDLc/HDLc SerPl 2.38 <2.54 Result Comment: Reference: 1. National Cholesterol Education Program ATP III Guideline At-A-Glance Quick Desk Reference: National Heart, Lung, and Blood Urich. National Institutes of Health. 2001: NIH Publication No. 01-3305. 2. An International Atherosclerosis Society position paper: global recommendations for the management of dyslipidemia: executive summary, Atherosclerosis. 2014: 232(2):410-413. Performed By: #### 2132-9 ## ## [facility] CLIA [id number] [address] [place] [address] [place] #### 48022-7 #### [facility] CLIA [id number] [address] [place] [address] [place] [id number] [address] [place] [address] [place] VIT B12 SERPL-MCNC Collected: 4 11:01 AM Status: F Source: [facility] Order Comment: Specimen Type : BLOOD SPECIMEN Ordering Facility: [facility] Address: [address] [place] [address] TYPE CODE TESTS RESULT OUT OF RANGE REFERENCE UNITS LAB 2132-9([facility]) Vit B12 SerPl-mCnc 226 425-4965 pg/mL Performed By: #### 2132-9 ## ## [facility] CLIA [id number] [address] [place] [address] [place] #### 14912-0 #### [facility] CLIA [id number] [address] [place] [address] [place] [facility] CLIA [id number] [id number] [place] [address] [place] DEPRECATED HGB A1C BLD Collected: 07/23 11:01 AM Status: F Source: [facility] Order Comment: Specimen Type : BLOOD SPECIMEN Ordering Facility: [facility] Address: [address] [place] [address] TYPE CODE TESTS RESULT OUT OF RANGE REFERENCE UNITS LAB 4548-4(INC) HbA1c MFr Bld 5.6 4.3-5.6 % Result Comment: [place] Kim betes Association guidelines indicate that patients with HgbA1c in the range 5.7-6.4% are at increased risk for development of diabetes, and intervention by lifestyle modification may be beneficial. HgbA1c greater or equal to 6.5% is considered diagnostic of diabetes. LAB 75473-3(LOINC) Est. average glucose Bld gHb Est-mCnc 114 mg/dL Result Comment: eAG: (Estima scot average glucose) is a calculated value from HgbA1c and is jewelry sales representative of the average blood glucose level in the last 2-3 month period. Performed By: #### 13586-9 # ### [facility] CLIA [id number] [address] [place] [address] [place] XR CHEST 2V FRONTAL/LAT Observed: 2023 11:08 AM Status: F Source: [facility] * * *Final Report* * * DATE OF EXAM: Jul 19 [...] both lung bases. Mild diffuse interstitial prominence. Vaccine Key Customer Leader: REVA Transcribe Date/Time: Jul 23 2024 8:51A Dictated by : MO HO MD This examination was interpreted and the report reviewed and electronically signed by: MO HO MD on Jul 23 2024 8:53AM EST [id number] PROGRESS Observed: 07/19/2024 11:00 AM Status: COMPLETED Source: [facility] HNO ID: [id number] Author: PRATIMA MOROCHO RT(R) Service: ? Author Type: Technologist Type: [...] PATIENT PRESENTS WITH AN IMPLANTABLE OR ATTACHED BULKHEAD CARPENTER: No RADIOLOGY DEPARTMENT: General X-ray: Exam(s) Completed: Chest X-Ray PERIPHERAL IV DATA: Not applicable SIGNED BY: RT Miya(R) July 19, 2024 12:18 PM CNPN Observed: 07/15/2024 12:00 AM Status: COMPLETED Source: [facility] Telephone (FAMPWS) MARY REYES G ([id number]) 1950 F Date Time Provider Department 07/15/24 PETE MOREJONPRYLIE During your visit today, we recorded the following information about you: Kim Loza MA 07/15/2024 9:45 AM Signed See [employer] message. Nestor Crowe ordered a chest x-ray [...] MA 07/15/2024 11:13 AM Signed Notified via [employer]. Kim Loza MA Allergies As of Date: 07/15/2024 Noted Allergy Reaction VICODIN (HYDROCODONE-ACETAMINOPHE*03/25/2011 2 - Rash VIOXX (ROFECOXIB) 03/18/2005 8 - GI Upset Date Reviewed: 07/03/2024 Reviewed by: Misael Biswas MA - Fully Assessed Primary Visit Diagnosis:Bacterial pneumonia [J15.9] Order(s):XR CHEST 2V FRONTAL/LAT [[id number]] Order #: [id number] FUTURE Prescriptions as of 07/15/2024 - cholecalciferol, vitamin D3, (D3-1999 ORAL) Take by mouth. - cyanocobalamin (VITAMIN B-12) 1,000 mcg tab Take 1,000 mcg by mouth once daily. - triamcinolone acetonide (KENALOG) 0.5 % cream Apply to affected area three times a day. - vit A,C,O-Vwll-Dytnwv (PRESERVISION AREDS) 2,148 mcg-113 mg-45 mg-17.4mg tab [...] Encounter Status:Closed by KIM LOZA on 07/15/24 CNOV Observed: 07/03/2024 3:00 PM Status: COMPLETED Source: [facility] Office Visit (OBGYWM) MICHELLEMARY OROZCO ([id number]) 1950 F Date Time Provider Department 07/03/24 3:00 PM SAVANAH SORIA OBGYWM During your visit today, we recorded the following information about you: Blood pressure Weight Height 130/86 115.7 kg 1.734 m Savanah Soria MD 07/03/2024 3:27 PM Signed Risk Mgr offered: Patient declines. Arshad is a 73 [...] L3 SAB0 IAB0 Ectopic0 Multiple0 Live Births0 Ambulatory Service Representative History LMP: Postmenopausal Age at Menarche: Age at First : Age at Menopause: Ambulatory Service Representative History Comments: Sexual Activity: Yes; Male Contraception: No contraception data on record PAST MEDICAL HISTORY Diagnosis Date Arthritis left knee, back Chronic kidney disease, stage 3a (HCC) 05/26/2023 Complication of anesthesia N/V DDD (degenerative disc disease), lumbar Diulus, Haney Diverticulosis of colon (without mention of hemorrhage) [...] FEM PROSTC AGRFT/ALGRFT Left 03/27/[address] [place], [facility] ARTHRP KNE CONDYLEANDPLATU MEDIALANDLAT COMPARTMENTS 10/04/10 Knee replacement, total Knee ARTHRP KNE CONDYLEANDPLATU MEDIALANDLAT COMPARTMENTS Right 10/01/2018 Dr. Mata, [facility] COLONOSCOPY FLX DX W/COLLJ SPEC WHEN [...] discussed with the Patient or Patient's Authorized Internal Affairs Commander. As applicable, any other physician, advance practice provider, medical student, or other health professional student that will be observing or involved in the sensitive examination for educational or training purposes was discussed with the Patient or Authorized Internal Affairs Commander. The Patient or Authorized Internal Affairs Commander has agreed to proceed with the sensitive [...] external genitalia normal, normal Bartholin's glands, urethra, Bithlo's glands, no vulvar lesions, good vaginal support, [...] 3) triamcinolone ordered- use one per week MD Thad Horta Deidre, MD 07/03/2024 3:27 PM Signed COLONOSCOPY BOWEL PREPARATION INSTRUCTIONS MiraLAX? Your doctor has scheduled you for a colonoscopy. To have a successful colonoscopy, you must have a clean colon, that is empty. A clean colon allows your doctor to see the entire colon AND diagnose issues like polyps or cancer. For [...] (i.e. drive a car, bicycle, etc) or leave the Endoscopy Center ALONE. It is not safe [...] with insulin, diabetic pills, or other injectable medications do not take your REGULAR dose after midnight on the day of your procedure. If you are taking any other types of insulin such as Lantus, Humalog, NPH (long-acting insulin), or 70/30 insulin, take half your normal dose the [...] medications (including aspirin, antibiotics, water pills / diuretics like Lasix or Metolozone, blood pressure meds, etc.) [...] can work differently from person to person. ? Some people's bowels move slowly and they may need different instructions. Please see your doctor in office or virtually for personalized bowel prep instructions if you have: BOWEL PREPARATION (MIRALAX/GATORADE) Split Dosing Bowel Prep: This means drinking your bowel prep in two doses. Split dosing helps clean your colon better and makes it less likely that your procedure will be canceled. You will need to purchase the following (no prescriptions are needed): 64 ounces Gatorade, Propel, Crystal Lite or other noncarbonated clear liquid sports drink (NOT red, orange, or purple). Diabetic patients buy sugar-free, e.g. [...] Yes, gastric bypass surgery involves the stomach AND small bowel. You may need to drink smaller amounts, slower (may need more time to complete your bowel prep). Gastric bypass does not alter the length of your colon so you will need to complete the entire bowel prep, it may just take longer time to complete it. Q: What if I am on dialysis? A: Please consult your fast food services manager prior to scheduling to get instructions pertinent to you. In general, dialysis patients take the TLabsytely bowel prep and have the procedure same day of their dialysis (colonoscopy in AM, dialysis in PM). Q: How do I know if something is considered as clear liquid diet? A: If you can pour it in a glass and you can see through it, it is considered clear liquid Q: Can I eat nuts, seeds, beans, popcorn, dried fruits, vegetables AND fruits that have skin peel? A: No, [...] with you to home. Q: Can I ?sleep it off? here and drive myself home? A: No, [...] be rescheduled due to inadequate prep quality. Allergies As of Date: 07/03/2024 Noted Allergy Reaction VICODIN (HYDROCODONE-ACETAMINOPHE*03/25/2011 2 - Rash VIOXX (ROFECOXIB) 03/18/2005 8 - GI Upset Date Reviewed: 07/03/2024 Reviewed by: Misael Biswas MA - Fully Assessed Reason for Visit: Yearly Exam [187] Primary Visit Diagnosis:Encounter for gynecological examination (general) (routine) without abnormal findings [Z01.419] Other Visit Diagnoses:Encounter for screening mammogram for breast cancer [Z12.31] Screening for colon cancer [Z12.11] Order(s):LISBET SCREENING Rabia VARGAS [[id number]] Order #: [id number] FUTURE triamcinolone acetonide (KENALOG) 0.5 % creamApply to affected area three times a day.Disp: 30 gRfl: 1 COLONOSCOPY SCREENING [GI51] Order #: [id number] FUTURE Prescriptions as of 07/03/2024 - cholecalciferol, vitamin D3, (D3-2000 ORAL) Take by mouth. - cyanocobalamin (VITAMIN B-12) 1,000 mcg tab Take 1,000 mcg by mouth once daily. - triamcinolone acetonide (KENALOG) 0.5 % cream Apply to affected area three times a day. - vit A,C,J-Fojh-Ssymbs (PRESERVISION AREDS) 2,148 mcg-113 mg-45 mg-17.4mg tab [...] once daily. 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 Your doctor has scheduled you for a colonoscopy. To have a successful colonoscopy, you must have a clean colon, that is empty. A clean colon allows your doctor to see the entire colon AND diagnose issues like polyps or cancer. For [...] (i.e. drive a car, bicycle, etc) or leave the Endoscopy Center ALONE. It is not safe [...] with insulin, diabetic pills, or other injectable medications do not take your REGULAR dose after midnight on the day of your procedure. If you are taking any other types of insulin such as Lantus, Humalog, NPH (long-acting insulin), or 70/30 insulin, take half your normal dose the [...] medications (including aspirin, antibiotics, water pills / diuretics like Lasix or Metolozone, blood pressure meds, etc.) [...] can work differently from person to person. ? Some people's bowels move slowly and they may need different instructions. Please see your doctor in office or virtually for personalized bowel prep instructions if you have: BOWEL PREPARATION (MIRALAX/GATORADE) Split Dosing Bowel Prep: This means drinking your bowel prep in two doses. Split dosing helps clean your colon better and makes it less likely that your procedure will be canceled. You will need to purchase the following (no prescriptions are needed): 64 ounces Gatorade, Propel, Crystal Lite or other noncarbonated clear liquid sports drink (NOT red, orange, or purple). Diabetic patients buy sugar-free, e.g. [...] Yes, gastric bypass surgery involves the stomach AND small bowel. You may need to drink smaller amounts, slower (may need more time to complete your bowel prep). Gastric bypass does not alter the length of your colon so you will need to complete the entire bowel prep, it may just take longer time to complete it. Q: What if I am on dialysis? A: Please consult your fast food services manager prior to scheduling to get instructions pertinent to you. In general, dialysis patients take the TLabsytely bowel prep and have the procedure same day of their dialysis (colonoscopy in AM, dialysis in PM). Q: How do I know if something is considered as clear liquid diet? A: If you can pour it in a glass and you can see through it, it is considered clear liquid Q: Can I eat nuts, seeds, beans, popcorn, dried fruits, vegetables AND fruits that have skin peel? A: No, [...] with you to home. Q: Can I ?sleep it off? here and drive myself home? A: No, [...] be rescheduled due to inadequate prep quality. Prescriptions ordered this encounter Disp Refills Start End TRIAMCINOLONE ACETONIDE 0.5 % TOPICA* 30 g 1 07/03/2024 Route: TOPICAL Sig: Apply to affected area three times a day. Medications Discontinued During This Encounter Prescriptions - gabapentin (NEURONTIN) 100 mg capsule (Discontinued) Take 1-2 capsules by mouth two times a day as needed (neck and shoulder pain) for up to 30 days. - methocarbamol (ROBAXIN) 500 mg tablet (Discontinued) Take 1 tablet by mouth at bedtime as needed. - triamcinolone acetonide (KENALOG) 0.5 % cream (Discontinued) Apply to affected area three times a day. Disposition: Return in 1 year (on 07/03/2025) for Annual Exam. Follow-up and Disposition History for Encounter Date Provider Department Center 07/03/2024 [id number] [facility]INTOS[facility],*OBGYWM Jon Rubio Encounter Status:Closed by SAVANAH HENSON on 07/03/24 PROGRESS Observed: 07/03/2024 2:59 PM Status: COMPLETED Source: [facility] HNO ID: [id number] Author: SAVANAH SORIA MD Service: ? Author Type: Physician Type: Progress Notes Filed: 07/03/2024 15:27 Note Text: Risk Mgr offered: Patient declines. Mary is a 73 [...] L3 SAB0 IAB0 Ectopic0 Multiple0 Live Births0 Ambulatory Service Representative History LMP: Postmenopausal Age at Menarche: Age at First : Age at Menopause: Ambulatory Service Representative History Comments: Sexual Activity: Yes; Male Contraception: No contraception data on record PAST MEDICAL HISTORY Diagnosis Date Arthritis left knee, back Chronic kidney disease, stage 3a (HCC) 05/26/2023 Complication of anesthesia N/V DDD (degenerative disc disease), lumbar Diulus, Haney Diverticulosis of colon (without mention of hemorrhage) [...] PROSTC AGRFT/ALGRFT Left 03/27/[address] [facility], [facility] ARTHRP KNE CONDYLEANDPLATU MEDIALANDLAT COMPARTMENTS 10/04/10 Knee replacement, total Knee ARTHRP KNE CONDYLEANDPLATU MEDIALANDLAT COMPARTMENTS Right 10/01/2018 Dr. Mata, [facility] COLONOSCOPY FLX DX W/COLLJ SPEC WHEN [...] discussed with the Patient or Patient's Authorized Internal Affairs Commander. As applicable, any other physician, advance practice provider, medical student, or other health professional student that will be observing or involved in the sensitive examination for educational or training purposes was discussed with the Patient or Authorized Internal Affairs Commander. The Patient or Authorized Internal Affairs Commander has agreed to proceed with the sensitive [...] external genitalia normal, normal Bartholin's glands, urethra, Bithlo's glands, no vulvar lesions, good vaginal support, [...] use one per week Savanah Don MD PROGRESS Observed: 05/28/2024 10:45 AM Status: COMPLETED Source: [facility] HNO ID: [id number] Author: NESTOR CROWE PA-C Service: ? Author Type: Physician Receiving And Processing Supervisor Type: Progress Notes Filed: 05/28/2024 11:03 Note Text: 05/28/2024atient presents with: Follow Up: [facility] ER follow up- SOB, elevated BP and elevated HR, SUBJECTIVE: This is a 73 year old that is here today for [facility] ED visit. She was having some [...] 116/78 with a 78 pulse per patient. [place] a little SOB with walking around. SOB has resolved, but still has a mild ESCOBAR and a little dizziness. Describes as lightheadedness. Denies worst ESCOBAR of life. They returned from [place] last night-drove there and back. Not on [...] N/V DDD (degenerative disc disease), lumbar Diulus, Haney Diverticulosis of colon (without mention of hemorrhage) [...] MEDICATIONS Current Outpatient Medications Medication Sig vit A,C,U-Dnhe-Zzdejf (PRESERVISION AREDS) 2,148 mcg-113 mg-45 mg-17.4mg tab [...] currently on metoprolol. Nestor Crowe PA-C 05/28/2024 CNOV Observed: 05/28/2024 10:20 AM Status: COMPLETED Source: [facility] MARY REYES ([id number]) 1950 F Date Time Provider Department 05/28/24 10:20 AM NESTOR CROWE During your visit today, we recorded the following information about you: Pulse Respiration Blood pressure Weight 59/minute 14/minute 110/70 115.8 kg Height 1.753 m Nestor Crowe PA-C 05/28/2024 11:03 AM Signed 05/28/2024 Patient presents with: Follow Up: [facility] ER follow up- SOB, elevated BP and elevated HR, SUBJECTIVE: This is a 73 year old that is here today for [facility] ED visit. She was having some [...] 116/78 with a 78 pulse per patient. [place] a little SOB with walking around. SOB has resolved, but still has a mild ESCOBAR and a little dizziness. Describes as lightheadedness. Denies worst ESCOBAR of life. They returned from [place] last night-drove there and back. Not on [...] N/V DDD (degenerative disc disease), lumbar Diulus, Haney Diverticulosis of colon (without mention of hemorrhage) [...] MEDICATIONS Current Outpatient Medications Medication Sig vit A,C,H-Hvxm-Nqfxja (PRESERVISION AREDS) 2,148 mcg-113 mg-45 mg-17.4mg tab [...] currently on metoprolol. Nestor Crowe PA-C 05/28/2024 Allergies As of Date: 05/28/2024 Noted Allergy Reaction VICODIN (HYDROCODONE-ACETAMINOPHE*03/25/2011 2 - Rash VIOXX (ROFECOXIB) 03/18/2005 8 - GI Upset Date Reviewed: 05/28/2024 Reviewed by: Adele Mclean LPN - Fully Assessed Reason for Visit: Follow Up [171] Cmt: [facility] ER follow up- SOB, elevated BP and elevated HR, Primary Visit Diagnosis:Pneumonia of left lower lobe due to infectious organism [J18.9] Other Visit Diagnoses:Dizziness [R42] Hypertension, essential [I10] Order(s):XR CHEST 2V FRONTAL/LAT [6211897] Order #: [id number] FUTURE Prescriptions as of 05/28/2024 - vit A,C,D-Hluu-Zvindq (PRESERVISION AREDS) 2,148 mcg-113 mg-45 mg-17.4mg tab Take 1 tablet by mouth daily with breakfast. - triamcinolone acetonide (KENALOG) 0.5 % cream [...] once daily. 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 [place] a little SOB with walking around. SOB has resolved, but still has a mild ESCOBAR and a little dizziness. Describes as lightheadedness. Denies worst SECOBAR of life. They returned from [place] last night-drove there and back. Not on [...] N/V DDD (degenerative disc disease), lumbar Diulus, Haney Diverticulosis of colon (without mention of hemorrhage) [...] issues and agrees with the plan. Nestor Bogner, PA-C Allergies As of Date: 05/07/2024 Noted Allergy Reaction VICODIN (HYDROCODONE-ACETAMINOPHE*03/25/2011 2 - Rash VIOXX (ROFECOXIB) 03/18/2005 8 - GI Upset Date Reviewed: 05/07/2024 Reviewed by: Adele Mclean LPN - Fully Assessed Reason for Visit: Same Day Appointment [255] Cmt: elevated blood pressure and SOB, h/a, dizzy Primary Visit Diagnosis:Dizziness [R42] Other Visit Diagnosis:SOB (shortness of breath) [R06.02] Order(s):ECG COMPLETE [ECG01] Order #: [id number] BASIC METABOLIC PANEL [SQBMP] Order #: [id number] FUTURE COMPLETE BLOOD COUNT AND DIFFERENTIAL [SQCBCDIF] Order #: [id number] FUTURE XR CHEST 2V FRONTAL/LAT [[id number]] Order #: [id number] FUTURE Prescriptions as of 05/08/2024 - vit A,C,O-Epje-Ykiyuy (PRESERVISION AREDS) 2,148 mcg-113 mg-45 mg-17.4mg tab Take 1 tablet by mouth daily with breakfast. - triamcinolone acetonide (KENALOG) 0.5 % cream [...] [R22.1] 05/26/2023 Vitamin B12 deficiency [E53.8] 05/26/2023 Level of Service: OFFICE/OUTPATIENT ESTABLISHED MOD [facility] 30 MIN [62188] Additional E/M codes: VISIT CPLX INHERENT MURALINDM ASSOC WITH MED * Encounter Status:Closed by NESTOR CROWE on 05/08/24 PROGRESS Observed: 05/07/2024 1:12 PM Status: COMPLETED Source: [facility] HNO ID: [id number] Author: NESTOR CROWE PA-C Service: ? Author Type: Physician Receiving And Processing Supervisor Type: Progress Notes Filed: 05/08/2024 10:25 Note [...] 116/78 with a 78 pulse per patient. [place] a little SOB with walking around. SOB has resolved, but still has a mild ESCOBAR and a little dizziness. Describes as lightheadedness. Denies worst ESCOBAR of life. They returned from [place] last night-drove there and back. Not on [...] N/V DDD (degenerative disc disease), lumbar Diulus, Haney Diverticulosis of colon (without mention of hemorrhage) [...] these issues and agrees with the plan. LESLEY Doll Observed: 05/07/2024 12:45 PM Status: COMPLETED Source: [facility] MARY [facility] ([id number]) 1950 F Date Time Provider Department 05/07/24 12:45 PM RAMON DAVIS [facility] During your visit today, we recorded [...] of Date: 05/07/2024 Noted Allergy Reaction VICODIN (HYDROCODONE-ACETAMINOPHE*03/25/2011 2 - Rash VIOXX (ROFECOXIB) 03/18/2005 8 [...] Encounter Status:Closed by RAMON DAVIS on 05/07/24 PROGRESS Observed: 05/07/2024 12:36 PM Status: COMPLETED Source: [facility] HNO ID: [id number] Author: RAMON DAVIS PA Service: ? Author Type: Physician Receiving And Processing Supervisor Type: Progress Notes Filed: 05/07/2024 12:37 Note [...] regular rate and rhythm on my exam. ECG01 Observed: 05/07/2024 12:31 PM Status: F Source: [facility] Ventricular Rate : 58 BPM Atrial Rate : 58 BPM P-R Interval : 182 ms QRS Duration : 74 ms Q-T Interval : 442 ms QTC Calculation(Bazett) : 433 ms Calculated P Miles : 41 degrees Calculated R Miles : -49 degrees Calculated T Miles : 26 degrees SINUS BRADYCARDIA WITH OCCASIONAL PREMATURE VENTRICULAR COMPLEXES LEFT AXIS DEVIATION LEFT ANTERIOR FASCICULAR BLOCK INFERIOR MYOCARDIAL INFARCTION , AGE UNDETERMINED POSSIBLE ANTERIOR MYOCARDIAL INFARCTION , AGE UNDETERMINED ABNORMAL ECG Confirmed by ELVIS ELISE DO ([id number]) on 05/08/2024 3:16:59 PM NAME : MARY REYES PID : [id number] : 1950 Gender : Female Race : ORD : Procedure Date : May 07 2024 12:31:14 Edit Date : May 08 2024 15:17:04 Diagnosis: SINUS BRADYCARDIA WITH OCCASIONAL PREMATURE VENTRICULAR COMPLEXES LEFT AXIS DEVIATION LEFT ANTERIOR FASCICULAR BLOCK INFERIOR MYOCARDIAL INFARCTION , AGE UNDETERMINED POSSIBLE ANTERIOR MYOCARDIAL INFARCTION , AGE UNDETERMINED ABNORMAL ECG Confirmed by ELVIS ELISE DO ([id number]) on 05/08/2024 3:16:59 PM Test Reason : Location : 185 : [facility] Overread By : ELVIS ELISE DO Edited By : ELVIS ELISE DO Referred By : , Acquired by : MIRELLA malhotra Observed: 05/01/2024 12:00 AM Status: COMPLETED Source: [facility] Telephone ([facility]) MARY REYES ([id number]) 1950 F Date Time Provider Department 05/01/24 PETE MOREJONPWS During your visit today, we recorded the [...] of Date: 05/01/2024 Noted Allergy Reaction VICODIN (HYDROCODONE-ACETAMINOPHE*03/25/2011 2 - Rash VIOXX (ROFECOXIB) 03/18/2005 8 [...] Encounter Status:Closed by GABI RAMOS on 05/03/24 [facility] SCREENING Observed: 04/30/2024 11:56 AM Status: F Source: [facility] * * *Final Report* * * DATE OF EXAM: Apr 30 2024 11:56AM ROBERTO 0581 - [facility] SCREENING / PROCEDURE REASON: Encounter for screening mammogram for malignant neoplasm of breast * * * * Physician Interpretation * * * * RESULT: [place] [address] HISTORY: Patient is 73 years old and [...] Charlene Espino M.D. Electronically signed on: 05/01/2024 Vaccine Key Customer Leader: BIANKA Transcribe Date/Time: Apr 30 2024 11:26A Dictated by: CHARLENE ESPINO MD This examination was interpreted and the report reviewed and electronically signed by: CHARLENE ESPINO MD on May 01 2024 1:14PM EST [id number] Observed: 04/30/2024 11:30 AM Status: COMPLETED [facility]: [id number] Author: EBENEZER LOWERY Mammo Tech Service: ? [...] PATIENT PRESENTS WITH AN IMPLANTABLE OR ATTACHED BULKHEAD CARPENTER: No RADIOLOGY DEPARTMENT: Mammography PERIPHERAL IV DATA: Not applicable SIGNED BY: Sriram Tobar April 30, 2024 11:58 AM ALLERGIES DATE TYPE / CODE NAME / CODE REACTION SEVERITY SOURCE 03/25/2011 DRUG/[id number](S NOMED CT) HYDROCODONE-ACETAMIN OPHEN RASH [facility] 03/18/2005 DRUG INGREDI/[id number](SNOMED CT) ROFECOXIB GI UPSET [facility] ENCOUNTERS ADMIT/DISCHARGE ACCOUNT NUMBER ADMITTING ENCOUNTER CLASS LOC ATION SOURCE 01/29/2025/ 5 [id number] Ambulatory [facility] Hospital[facility] ing:NE91 [facility] 01/22/2025/ 5 [id number] Ambulatory [facility] HospitalBuild ing:WOFM [facility] 01/20/2025/ 5 [id number] Ambulatory [facility] HospitalBuild ing:WOFM [facility] 01/09/2025 [id number] Ambulatory [facility] HospitalBuild ing:WORG [facility] 01/09/2025/ 5 [id number] Ambulatory [facility] HospitalBuild ing:WOUC [facility] 12/24/2024/ 5 [id number] Ambulatory [facility] HospitalBuild ing:WOL2 [facility] 12/10/2024/ 5 [id number] Ambulatory [facility] HospitalBuild ing:NEMM [facility] 10/31/2024/ 5 [id number] Ambulatory [facility] HospitalBuild ing:WOMR [facility] 10/21/2024/ 5 [id number] Ambulatory [facility] HospitalBuild ing:WON2 [facility] 09/09/2024/ 5 [id number] Ambulatory [facility] HospitalBuild ing:WOGS [facility] 09/02/2024/ 5 [id number] Ambulatory [facility] HospitalBuild ing:WOGS [facility] 08/26/2024/ 5 [id number] Ambulatory [facility] HospitalBuild ing:WOL2 [facility] 08/26/2024/ 5 [id number] Ambulatory [facility] HospitalBuild ing:WOUS [facility] 08/15/2024/ 5 [id number] Ambulatory [facility] HospitalBuild ing:WOCA [facility] 08/15/2024/ 5 [id number] Ambulatory [facility] HospitalBuild ing:WOCT [facility] 08/09/2024/ 5 [id number] Ambulatory [facility] HospitalBuild ing:ASWS [facility] 07/30/2024/ 5 [id number] Ambulatory [facility] HospitalBuild ing:WOFM [facility] 07/23/2024/ 4 [id number] Ambulatory [facility] HospitalBuild ing:WOL2 [facility] 07/19/2024/ 4 [id number] Ambulatory [facility] HospitalBuild ing:WOR2 [facility] 07/03/2024/ 4 [id number] Ambulatory [facility] HospitalBuild ing:WMOB [facility] 05/28/2024/ 4 [id number] Ambulatory [facility] HospitalBuild ing:WOFM [facility] 05/07/2024/ 4 [id number] Ambulatory [facility] HospitalBuild ing:WOUC [facility] 05/07/2024/ 4 [id number] Ambulatory [facility] HospitalBuild ing:WOFM [facility] 04/30/2024/ 4 [id number] Ambulatory [facility] HospitalBuild ing:WODM [facility] PAYERS ENCOUNTER GUARANTOR PAYER SUBSCRIBER SOURCE 01/29/2025 Primary Insurance:MEDICARE A AND BPolicy Number: [id number] Date:2535-86-79Ciyw Name:Urbano HARE: [id number] [place], [place] [address] [place] [address] 01/29/2025 Secondary Insura nce:[facility] AARP SUPPLEMENTPolicy Number: [id number] Date:1942-55-04Ryvr Name:Karen HARE: [id number] [place], [place] [address] [place] [address] 01/22/2025 Primary Insurance:MEDICARE A AND BPolicy Number: [id number] Date:7390-53-32Eilr Name:Urbano HARE: [id number] [place] [address] [facility] 01/22/2025 Secondary Insura nce:[facility] AARP SUPPLEMENTPolicy Number: [id number] Date:3463-91-86Nqsx Name:Karen SANDRAB: [id number] [place] [address] [facility] 01/20/2025 Primary Insurance:MEDICARE A AND BPolicy Number: [id number] Date:5536-86-19Lfol Name:Urbano SANDRAB: [id number] [place], [place] [address] [place] [address] 01/20/2025 Secondary Insura nce:[facility] AARP SUPPLEMENTPolicy Number: [id number] Date:9795-11-36Nfvr Name:Karen SANDRAB: [id number] [place], [place] [address] [place] [address] 01/09/2025 Primary Insurance:MEDICARE A AND BPolicy Number: [id number] Date:7364-75-51Zdqo Name:Urbano SANDRAB: [id number] [place] [address] [facility] 01/09/2025 Secondary Insura nce:[facility] AARP SUPPLEMENTPolicy Number: [id number] Date:4968-12-34Agod Name:Karen SANDRAB: [id number] [place] [address] [facility] 01/09/2025 Primary Insurance:MEDICARE A AND BPolicy Number: [id number] Date:5984-16-95Mzua Name:Urbano SANDRAB: [id number] [place] [address] [facility] 01/09/2025 Secondary Insura nce:[facility] AARP SUPPLEMENTPolicy Number: [id number] Date:0722-28-33Mghu Name:Karen SANDRAB: [id number] [place] [address] [facility] 12/24/2024 Primary Insurance:MEDICARE A AND BPolicy Number: [id number] Date:6847-20-35Tnxn Name:Urbano SANDRAB: [id number] [place] [address] [facility] 12/24/2024 Secondary Insura nce:[facility] AARP SUPPLEMENTPolicy Number: [id number] Date:4414-25-25Ahjo Name:Karen SANDRAB: [id number] [place] [address] [facility] 12/10/2024 Primary Insurance:MEDICARE A AND BPolicy Number: [id number] Date:9458-34-97Qbxg Name:Urbano SANDRAB: [id number] [place] [address] [facility] 12/10/2024 Secondary Insura nce:[facility] AARP SUPPLEMENTPolicy Number: [id number] Date:1488-25-94Wlip Name:Karen SANDRAB: [id number] [place] [address] [facility] 10/31/2024 Primary Insurance:MEDICARE A AND BPolicy Number: [id number] Date:6962-67-83Rzom Name:Urbano SANDRAB: [id number] [place] [address] [facility] 10/31/2024 Secondary Insura nce:[facility] AARP SUPPLEMENTPolicy Number: [id number] Date:7871-05-30Untz Name:Karen SANDRAB: [id number] [place], [place] [address] [place] [address] 10/21/2024 Primary Insurance:MEDICARE A AND BPolicy Number: [id number] Date:9697-48-47Iljz Name:Urbano SANDRAB: [id number] [place], [place] [address] [place] [address] 10/21/2024 Secondary Insura nce:[facility] AARP SUPPLEMENTPolicy Number: [id number] Date:2061-50-15Imfd Name:Karen REYESB: [id number] [place], [place] [address] [place] [address] 09/09/2024 Primary Insurance:MEDICARE A AND BPolicy Number: [id number] Date:6574-42-60Ynjd Name:Urbano REYESB: [id number] [place], [place] [address] [place] [address] 09/09/2024 Secondary Insura nce:[facility] AARP SUPPLEMENTPolicy Number: [id number] Date:3154-67-45Ufii Name:Karen SANDRAConsuelo: [id number] [place], [place] [address] [place] [address] 09/02/2024 Primary Insurance:MEDICARE A AND BPolicy Number: [id number] Date:7113-47-81Ocig Name:Urbano SANDRAB: [id number] [place], [place] [address] [place] [address] 09/02/2024 Secondary Insura nce:[facility] AARP SUPPLEMENTPolicy Number: [id number] Date:3403-49-20Gryk Name:Karen SANDRAB: [id number] [place], [place] [address] [place] [address] 08/26/2024 Primary Insurance:MEDICARE A AND BPolicy Number: [id number] Date:2946-63-52Rblo Name:Urbano SANDRAB: [id number] [place], [place] [address] [place] [address] 08/26/2024 Secondary Insura nce:[facility] AARP SUPPLEMENTPolicy Number: [id number] Date:8787-23-64Ahoz Name:Karen SANDRAB: [id number] [place], [place] [address] [place] [address] 08/26/2024 Primary Insurance:MEDICARE A AND BPolicy Number: [id number] Date:7429-18-24Hmpt Name:Urbano SANDRAB: [id number] [place], [place] [address] [place] [address] 08/26/2024 Secondary Insura nce:[facility] AARP SUPPLEMENTPolicy Number: [id number] Date:3552-14-75Mnfm Name:Karen SANDRAB: [id number] [place], [place] [address] [place] [address] 08/15/2024 Primary Insurance:MEDICARE A AND BPolicy Number: [id number] Date:7983-73-16Yunb Name:Urbano SANDRAB: [id number] [place], [place] [address] [place] [address] 08/15/2024 Secondary Insura nce:[facility] AARP SUPPLEMENTPolicy Number: [id number] Date:1258-35-53Sjrw Name:Karen SANDRAB: [id number] [place], [place] [address] [place] [address] 08/15/2024 Primary Insurance:MEDICARE A AND BPolicy Number: [id number] Date:6268-99-32Wfuq Name:Urbano SANDRAB: [id number] [place], [place] [address] [place] [address] 08/15/2024 Secondary Insura nce:[facility] AARP SUPPLEMENTPolicy Number: [id number] Date:4487-65-39Xkff Name:Karen SANDRAB: [id number] [place], [place] [address] [place] [address] 08/09/2024 Primary Insurance:MEDICARE A AND BPolicy Number: [id number] Date:6899-99-07Gvwr Name:Urbano SANDRAB: [id number] [place], [place] [address] [place] [address] 08/09/2024 Secondary Insura nce:[facility] AARP SUPPLEMENTPolicy Number: [id number] Date:0354-44-78Mfsq Name:Karen SANDRAB: [id number] [place], [place] [address] [place] [address] 07/30/2024 Primary Insurance:MEDICARE A AND BPolicy Number: [id number] Date:0481-02-97Relq Name:Urbano SANDRAB: [id number] [place], [place] [address] [place] [address] 07/30/2024 Secondary Insura nce:[facility] AARP SUPPLEMENTPolicy Number: [id number] Date:0525-84-82Vjwt Name:Karen SANDRAB: [id number] [place], [place] [address] [place] [address] 07/23/2024 Primary Insurance:MEDICARE A AND BPolicy Number: [id number] Date:2572-62-33Ofrm Name:Urbano SANDRAB: [id number] [place], [place] [address] [place] [address] 07/23/2024 Secondary Insura nce:[facility] AARP SUPPLEMENTPolicy Number: [id number] Date:0479-62-86Vygu Name:Karen SANDRAB: [id number] [place] [address] [facility] 07/19/2024 Primary Insurance:MEDICARE A AND BPolicy Number: [id number] Date:2535-04-78Ewhq Name:Urbano SANDRAB: [id number] [place] [address] [facility] 07/19/2024 Secondary Insura nce:[facility] AARP SUPPLEMENTPolicy Number: [id number] Date:8583-23-69Nprl Name:Karen SANDRAB: [id number] [place] [address] [facility] 07/03/2024 Primary Insurance:MEDICARE A AND BPolicy Number: [id number] Date:7172-01-27Qxra Name:Urbano SANDRAB: [id number] [place] [address] [facility] 07/03/2024 Secondary Insura nce:[facility] AARP SUPPLEMENTPolicy Number: [id number] Date:6938-31-82Aqbg Name:Karen SANDRAB: [id number] [place] [address] [facility] 05/28/2024 Primary Insurance:MEDICARE A AND BPolicy Number: [id number] Date:5845-22-45Keam Name:Urbano SANDRAB: [id number] [place], [place] [address] [place] [address] 05/28/2024 Secondary Insura nce:[facility] AAR SUPPLEMENTPolicy Number: [id number] Date:7549-02-87Pvtx Name:Karen SANDRAB: [id number] [place], [place] [address] [place] [address] 05/07/2024 Primary Insurance:MEDICARE A AND BPolicy Number: [id number] Date:2655-59-68Ppzq Name:Urbano SANDRAB: [id number] [place], [place] [address] [place] [address] 05/07/2024 Secondary Insura nce:[facility] AARP SUPPLEMENTPolicy Number: [id number] Date:2689-31-25Zilq Name:Karen REYESB: [id number] [place], [place] [address] [place] [address] 05/07/2024 Primary Insurance:MEDICARE A AND BPolicy Number: [id number] Date:4015-48-67Efxx Name:Urbano REYESB: [id number] [place], [place] [id number] [place] [address] 05/07/2024 Secondary Insura nce:[facility] AARP SUPPLEMENTPolicy Number: [id number] Date:8895-91-05Oqnx Name:Karen REYESB: [id number] [place], [place] [id number] [place] [address] 04/30/2024 Primary Insurance:MEDICARE A AND BPolicy Number: [id number] Date:3480-04-92Glpq Name:Urbano REYESB: [id number] [place], [place] [id number] [place] [address] 04/30/2024 Secondary Insura nce:[facility] AARP SUPPLEMENTPolicy Number: [id number] Date:0075-87-06Khlc Name:Karen SANDRAB: [id number] [place], [place] [id number] [place] [address]
[2025-04-22 14:09] LABS: Anion Gap 10 (5-15); BUN 15 mg/dL (4-19); BUN/Creat Ratio 15.3 RATIO (10-20); Calcium,Total 9.3 mg/dL (7.6-11.0); Carbon Dioxide 27.1 mmol/L (21.0-32.0); Chloride 104 mmol/L (98-108); Glucose 94 mg/dL (70-99); Potassium 4.3 mmol/L (3.3-5.1)
== END | disposition home or self-care (01) ==
LOC: LAB 13:00
PROVIDERS: PCP Student in an Organized Health Care Education/Training Program; Referring Provider Physician Assistant Medical; Visit Provider Physician Assistant Medical
DX: I25.10 Atherosclerotic heart disease of native coronary artery without angina pectoris (principal)
CPT/HCPCS: 36415; 80048